=== PATIENT | female | born 1965 | race Caucasian/White ===

== ENCOUNTER → 2016-05-03 | Outpatient (CLI) | payer BC ==
[~2016-05-03] MED LIST: ALVESCO; BUPR-83 PO; CMD5 PO; DIGO0.2518 PO; LEVAAER2; METO100T14 PO; RANI300T2 PO; SNG10 PO
--- NOTE | 2016-05-03 07:45 | DIAGNOSTIC IMAGING REPORT ---
ULTRASOUND RIGHT UPPER QUADRANT ABDOMEN CLINICAL HISTORY: Right upper quadrant abdominal pain. COMPARISON STUDY: Abdominal CT dated 09/14/2007. TECHNIQUE: Real-time, grayscale, and color flow sonography of the right upper quadrant of the abdomen was performed. Images are reviewed in the transverse and longitudinal planes. FINDINGS: Liver: The liver is enlarged measuring over 26 cm in length and demonstrates heterogeneously increased echotexture consistent with severe hepatic steatosis. Note that this degrades acoustic penetration of the liver. Foci of fatty sparing are seen adjacent to gallbladder fossa. There is no intrahepatic biliary ductal dilatation. The main portal vein is patent. Gallbladder: The gallbladder is normal in appearance. No gallstones are identified. There is no gallbladder wall thickening or pericholecystic fluid. A sonographic Kincaid's sign is reportedly absent. The common bile duct measures up to 0.5 cm in diameter. Pancreas: Visualized portions of the pancreatic head and body are normal in appearance. Right kidney: Survey images of the right kidney demonstrate normal size and echotexture. There is no hydronephrosis. Ascites: None. IMPRESSION: 1. No acute sonographic abnormality is identified in the right upper quadrant. No gallstones are seen. 2. Hepatomegaly and severe hepatic steatosis. Electronically signed by: Jasiel Cooley M.D. 05/03/2016 7:43 AM Dictated Date/Time: 05/03/2016 7:42 AM
[2016-05-03 10:17] LABS: BLOOD UREA NITROGEN 13 mg/dl (7-18); CREATININE 0.79 mg/dl (0.60-1.20); GLUCOSE 156 mg/dl (70-99)
[2016-05-03 10:18] LABS: ALT/SGPT 172 U/L (12-78); BUN/CREATININE RATIO 16.7 (10-20); CALCIUM 9.9 mg/dl (8.5-10.1); CARBON DIOXIDE 27 mmol/L (21-32); CHLORIDE 102 mmol/L (98-107); POTASSIUM 4.2 mmol/L (3.5-5.1); SODIUM 139 mmol/L (136-145)
[2016-05-03 10:20] LABS: ALKALINE PHOSPHATASE 81 U/L (45-117); AST/SGOT 107 U/L (15-37)
[2016-05-03 10:24] LABS: ESTIMATED AVERAGE GLUCOSE 166 mg/dl; HA1C FLAG Normal (Normal)
== END | disposition home or self-care (01) ==
LOC: C.ULTR 06:56
PROVIDERS: ATTEND Family Medicine
DX: R10.11 Right upper quadrant pain (principal); E11.9 Type 2 diabetes mellitus without complications; R16.0 Hepatomegaly, not elsewhere classified; K76.0 Fatty (change of) liver, not elsewhere classified

== ENCOUNTER → 2016-05-10 | Outpatient (CLI) | payer BC ==
[2016-05-10 14:48] LABS: ALT/SGPT 147 U/L (12-78); AST/SGOT 85 U/L (15-37); BLOOD UREA NITROGEN 12 mg/dl (7-18); BUN/CREATININE RATIO 17.2 (10-20); CALCIUM 9.8 mg/dl (8.5-10.1); CARBON DIOXIDE 29 mmol/L (21-32); CHLORIDE 102 mmol/L (98-107); CREATININE 0.69 mg/dl (0.60-1.20); GLUCOSE 105 mg/dl (70-99); POTASSIUM 4.2 mmol/L (3.5-5.1); SODIUM 138 mmol/L (136-145)
[2016-05-10 14:51] LABS: ALKALINE PHOSPHATASE 82 U/L (45-117)
== END | disposition home or self-care (01) ==
LOC: C.LAB1850 12:32
PROVIDERS: ATTEND Physician Assistant
DX: R74.8 Abnormal levels of other serum enzymes (principal)

== ENCOUNTER → 2016-05-27 | Outpatient (CLI) | payer BC ==
--- NOTE | 2016-05-27 16:24 | MAMMOGRAPHY REPORT ---
BILATERAL DIGITAL SCREENING MAMMOGRAM TOMOSYNTHESIS WITH CAD: 05/27/2016 CLINICAL HISTORY: Routine screening examination. TECHNIQUE: Breast tomosynthesis in addition to standard 2D mammography was performed. Current study was also evaluated with a Computer Aided Detection (CAD) system. COMPARISON: Comparison is made to exams dated: 05/24/2015 ultrasound, 05/24/2015 mammogram, 05/20/2014 ma mmogram, 05/19/2013 mammogram, 05/14/2012 mammogram, and 05/07/2011 mammogram - [facility] nter. BREAST COMPOSITION: The tissue of both breasts is almost entirely fatty. FINDINGS: There are scattered bilateral benign-appearing microcalcifications. No suspicious mass, a rchitectural distortion or cluster of suspicious microcalcifications is seen. IMPRESSION: ACR BI-RADS CATEGORY 1: NEGATIVE There is no mammographic evidence of malignancy. A 1 year screening mammogram is recommended. The p atient will receive written notification of the results. Approximately 10% of breast cancers are not detected with mammography. A negative mammographic repor t should not delay biopsy if a clinically suggestive mass is present. Elizabeth Alexandre M.D. ay/:05/27/2016 15:56:52 Restaurant Service Manager: Samara PEREZ(Eyad)(Mickey), [facility] letter sent: Normal 1/2 BI-RADS Code: ACR BI-RADS Category 1: Negative
== END | disposition home or self-care (01) ==
LOC: C.MAMM 08:38
PROVIDERS: ATTEND Obstetrics & Gynecology
DX: Z12.31 Encounter for screening mammogram for malignant neoplasm of breast (principal)

== ENCOUNTER → 2016-08-27 | Outpatient (CLI) | payer BC ==
[2016-08-27 10:03] LABS: ESTIMATED AVERAGE GLUCOSE 163 mg/dl; HA1C FLAG Normal (Normal)
[2016-08-27 10:17] LABS: BLOOD UREA NITROGEN 12 mg/dl (7-18); CREATININE 0.78 mg/dl (0.60-1.20); GLUCOSE 126 mg/dl (70-99)
[2016-08-27 10:18] LABS: BUN/CREATININE RATIO 14.9 (10-20); CALCIUM 11.4 mg/dl (8.5-10.1); CARBON DIOXIDE 31 mmol/L (21-32); CHLORIDE 102 mmol/L (98-107); POTASSIUM 4.3 mmol/L (3.5-5.1); SODIUM 139 mmol/L (136-145)
== END | disposition home or self-care (01) ==
LOC: C.LAB 07:38
PROVIDERS: ATTEND Family Medicine
DX: E11.9 Type 2 diabetes mellitus without complications (principal)

== ENCOUNTER → 2016-09-19 | Outpatient (CLI) | payer BC ==
[~2016-09-19] MED LIST changes: +SINCALIDE IV ONE; +SODIUM CHLORIDE 0.9% IV ONE
--- NOTE | 2016-09-19 10:57 | DIAGNOSTIC IMAGING REPORT ---
NUCLEAR HEPATOBILIARY SCAN WITH EJECTION FRACTION IMAGING CLINICAL HISTORY: Right upper quadrant abdominal pain. COMPARISON STUDY: Abdominal ultrasound dated 05/03/2016. TECHNIQUE: Dynamic images of the liver and anterior abdomen were obtained every 5 minutes for a total of 60 minutes following the IV administration of 5.3mCi of technetium 99m Choletec. 2.7 mcg of sincalide was then injected with additional images acquired every 5 minutes for 45 minutes to calculate the gallbladder ejection fraction. FINDINGS: The hepatobiliary scan shows prompt and homogeneous hepatic uptake. There is visualized activity within the intra and extrahepatic biliary tree at 15 minutes, and within the gallbladder at 15 minutes. There is normal biliary to bowel transit, with small bowel visualized by 35 minutes. On the sincalide imaging, the gallbladder ejection fraction was measured at 51%. IMPRESSION: 1. Unremarkable nuclear hepatobiliary scan. There is no scintigraphic evidence of cholecystitis. 2. The gallbladder ejection fraction measured 51% which is normal. Electronically signed by: Jasiel Cooley M.D. 09/19/2016 10:56 AM Dictated Date/Time: 09/19/2016 10:55 AM
== END | disposition home or self-care (01) ==
LOC: C.NUCL 07:32
PROVIDERS: ATTEND Family Medicine
DX: R10.11 Right upper quadrant pain (principal)

== ENCOUNTER → 2016-10-01 | Outpatient (CLI) | payer BC ==
[~2016-10-01] MED LIST changes: +OPTIRAY 320 IV PRN; -SINCALIDE IV ONE; -SODIUM CHLORIDE 0.9% IV ONE
--- NOTE | 2016-10-01 12:32 | DIAGNOSTIC IMAGING REPORT ---
ABDOMEN AND PELVIS CT WITH IV AND ORAL CONTRAST CT DOSE: 2095.96 mGy.cm HISTORY: Right upper quadrant abdominal pain. TECHNIQUE: Multiaxial CT images of the abdomen and pelvis were performed following the use of intravenous and oral contrast. A dose lowering technique was utilized adhering to the principles of ALARA. COMPARISON STUDY: Abdominal ultrasound 05/03/2016. Abdomen and pelvis CT 09/14/2007. FINDINGS: The lung bases are essentially clear. No fractures within the visualized osseous structures. Small fat-containing umbilical hernia. There is also a lower midline ventral/incisional hernia which contains a short segment of small bowel. This is similar to the prior study. The neck of the hernia measures 4 cm. The hernia sac measures 8.6 cm. Hepatic steatosis. The gallbladder, pancreas, spleen, and adrenal glands are unremarkable. No retroperitoneal lymphadenopathy. The kidneys enhance normally. Bilateral nephrolithiasis. Dominant stone within the lower pole the left kidney measures 8 mm. No ureteral stones. No hydronephrosis. Normal bladder, uterus, and right ovary. There is a 2.5 cm left ovarian cyst. A few colonic diverticula. No bowel wall thickening or obstruction. Normal appendix. IMPRESSION: 1. Bilateral nephrolithiasis. No ureteral stones. No hydronephrosis. 2. No bowel wall thickening or obstruction. 3. Normal appendix. 4. Hepatic steatosis. 5. Diverticulosis. 6. Small fat-containing umbilical hernia. 7. No change in the lower midline ventral/incisional hernia containing a short segment of small bowel. 8. A 2.5 cm left ovarian cyst. Electronically signed by: Oli Harvey M.D. 10/01/2016 12:31 PM Dictated Date/Time: 10/01/2016 12:23 PM
== END | disposition home or self-care (01) ==
LOC: C.CTS 09:34
PROVIDERS: ATTEND Family Medicine
DX: R10.11 Right upper quadrant pain (principal); N20.0 Calculus of kidney; K76.0 Fatty (change of) liver, not elsewhere classified; K57.92 Diverticulitis of intestine, part unspecified, without perforation or abscess without bleeding; K42.9 Umbilical hernia without obstruction or gangrene; N83.202 Unspecified ovarian cyst, left side

== ENCOUNTER → 2016-10-02 | Outpatient (CLI) | payer BC ==
[~2016-10-02] MED LIST changes: -OPTIRAY 320 IV PRN
[2016-10-02 09:41] LABS: BLOOD UREA NITROGEN 13 mg/dl (7-18); CREATININE 0.75 mg/dl (0.60-1.20)
== END | disposition home or self-care (01) ==
LOC: C.LAB 07:49
PROVIDERS: ATTEND Family Medicine
DX: E11.9 Type 2 diabetes mellitus without complications (principal); R10.11 Right upper quadrant pain

== ENCOUNTER → 2016-11-01 | Outpatient (CLI) | payer BC ==
[2016-11-01 17:10] LABS: BASO % 0.5 %; BASO ABS # 0.06 K/uL (0-0.2); COMPLETE YES; EOS % 9.5 %; HEMATOCRIT 42.9 % (37-47); IG% 0.5 %; LYMPH % 29.1 %; LYMPH ABS # 3.28 K/uL (1.2-3.4); MEAN CELL VOLUME 92.3 fL (80-100); MEAN CORPUSCULAR HEMOGLOBIN 29.7 pg (25-34); MEAN CORPUSCULAR HGB CONC 32.2 g/dl (32-36); MEAN PLATELET VOLUME 9.6 fL (7.4-10.4); MONO % 7.3 %; NEUT % 53.1 %; PLATELET COUNT 256 K/uL (130-400); RED BLOOD COUNT 4.65 M/uL (4.2-5.4); WHITE BLOOD COUNT 11.29 K/uL (4.8-10.8)
== END | disposition home or self-care (01) ==
LOC: C.LAB 16:02
PROVIDERS: ATTEND Family Medicine
DX: R51 Headache (principal)

== ENCOUNTER → 2016-11-29 | Outpatient (CLI) | payer BC ==
[2016-11-29 16:41] LABS: HEMATOCRIT 43.1 % (37-47); MEAN CELL VOLUME 91.7 fL (80-100); MEAN CORPUSCULAR HEMOGLOBIN 30.4 pg (25-34); MEAN CORPUSCULAR HGB CONC 33.2 g/dl (32-36); MEAN PLATELET VOLUME 9.7 fL (7.4-10.4); PLATELET COUNT 258 K/uL (130-400); WHITE BLOOD COUNT 11.24 K/uL (4.8-10.8)
[2016-11-29 16:57] LABS: POTASSIUM 4.2 mmol/L (3.5-5.1)
== END | disposition home or self-care (01) ==
LOC: C.LAB 15:09
PROVIDERS: ATTEND Plastic Surgery
DX: Z01.818 Encounter for other preprocedural examination (principal); K42.9 Umbilical hernia without obstruction or gangrene; E65 Localized adiposity

== ENCOUNTER → 2017-02-27 | Outpatient (CLI) | payer OTHER ==
--- NOTE | 2017-02-27 16:22 | DIAGNOSTIC IMAGING REPORT ---
CHEST 2 VIEWS ROUTINE CLINICAL HISTORY: Cough. COMPARISON STUDY: Chest radiograph April 15, 2011. FINDINGS: The lung volumes are normal. Lungs are clear. No pneumothorax or pleural effusion is noted. Cardiac size is normal. Mediastinal contours are normal. There is no evidence for pulmonary edema. Appearance of the chest is unchanged. IMPRESSION: No acute cardiopulmonary findings. Electronically signed by: Edson Alan M.D. 02/27/2017 4:21 PM Dictated Date/Time: 02/27/2017 4:20 PM
== END | disposition home or self-care (01) ==
LOC: C.RAD1850 16:05
PROVIDERS: ATTEND Physician Assistant Medical
DX: R05 Cough (principal)

== ENCOUNTER → 2017-09-15 | Outpatient (CLI) | payer OTHER ==
[2017-09-15 10:03] LABS: ALT/SGPT 92 U/L (12-78); BLOOD UREA NITROGEN 12 mg/dl (7-18); CALCIUM 9.8 mg/dl (8.5-10.1); CARBON DIOXIDE 27 mmol/L (21-32); CHOLESTEROL 183 mg/dl (0-200); GLUCOSE 160 mg/dl (70-99); LDL CHOLESTEROL CALCULATED 96 mg/dl; SODIUM 137 mmol/L (136-145)
[2017-09-15 10:27] LABS: HEMOGLOBIN A1C 8.4 % (4.5-5.6)
== END | disposition home or self-care (01) ==
LOC: C.LAB 07:36
PROVIDERS: ATTEND Family Medicine
DX: N60.92 Unspecified benign mammary dysplasia of left breast (principal); E11.9 Type 2 diabetes mellitus without complications; E78.00 Pure hypercholesterolemia, unspecified

== ENCOUNTER 2019-08-04 21:06 | Inpatient (IN) ==
--- NOTE | 2019-08-04 21:33 | Emergency Department Note ---
History of Present Illness General Chief complaint: Kidney Stone Stated complaint: KIDNEY STONE BLOCKING URINARY TRACK Time Seen by Provider: 08/04/19 21:24 History of Present Illness This is a 53-year-old female that presents to the emergency department via private vehicle with complaints of "kidney stone blocking urinary tract". The patient states that this past Friday she noted right-sided flank pain and was seen by the PCP on Friday. She states that she received IM Toradol and a short course of pain medication and was doing well. She was started on a prescription of ciprofloxacin and has been compliant. She then underwent a CT scan of the abdomen and pelvis this past Friday. This revealed: Mild left-sided hydroureteronephrosis secondary to an obstructing 4 x 3 x 5 mm calculus of the distal left ureter at the ureterovesicular junction. She states that Dr. Alexandre of urology was involved and she was recommended to come here for further evaluation and management with likely admission to the hospital with planned surgical correction tomorrow by Dr. Alexandre. Patient denies any pain at this time. Last fever was yesterday. Home Medications Home Medications Medication Instructions Recorded Confirmed Type ascorbic acid (vitamin C) 1,000 mg 2 gm PO BID tab 09/29/18 08/04/19 History tablet bupropion HCl 200 mg tablet,12 hr 200 mg PO BID #180 ea 09/29/18 08/04/19 Rx sustained-release fluticasone propionate 50 1 sprays INTNAS DAILY PRN 09/29/18 08/04/19 History mcg/actuation nasal spray,suspension hydrocodone-homatropine 5 mg-1.5 5 ml PO Q6H PRN 09/29/18 08/04/19 History mg/5 mL oral syrup lorazepam 0.5 mg tablet 0.5 mg PO DAILY 09/29/18 08/04/19 History ondansetron HCl 8 mg tablet 8 mg PO Q8H PRN #30 tab 09/29/18 08/04/19 Rx potassium 99 mg tablet 99 mg PO BID tab 09/29/18 08/04/19 History pyridoxine (vitamin B6) 100 mg 100 mg PO BID tab 09/29/18 08/04/19 History tablet sumatriptan succinate 100 mg tablet See Rx Instructions PO .COMPLEX 09/29/18 08/04/19 Rx #10 tab pen needle, diabetic 31 gauge x #100 ea 10/05/18 08/04/19 Rx 3/16" lancets #50 ea 11/09/18 08/04/19 Rx montelukast 10 mg tablet 10 mg PO QPM #30 tab 11/23/18 08/04/19 Rx spironolactone 100 mg tablet 50 mg PO BID #90 tab 12/11/18 08/04/19 Rx metoprolol tartrate 25 mg tablet See Rx Instructions PO BID PRN #90 01/04/19 08/04/19 Rx tab ciclesonide 160 mcg/actuation See Rx Instructions .ROUTE 01/06/19 08/04/19 Rx aerosol inhaler .COMPLEX #6.1 gm metoprolol tartrate 50 mg tablet See Rx Instructions .ROUTE 01/25/19 08/04/19 Rx .COMPLEX #270 tab clindamycin phosphate 1 % lotion 1 appln TOP DAILY #60 ml 02/22/19 08/04/19 Rx levalbuterol tartrate 45 2 puffs INH Q6H PRN #15 gm 05/03/19 08/04/19 Rx mcg/actuation aerosol inhaler furosemide 20 mg tablet 20 mg PO DAILY PRN #30 ea 05/25/19 08/04/19 Rx omeprazole 20 mg capsule,delayed 20 mg PO BID #60 cap 05/26/19 08/04/19 Rx release empagliflozin 10 mg tablet 10 mg PO DAILY #30 tab 06/01/19 08/04/19 Rx escitalopram oxalate 10 mg tablet 10 mg PO DAILY #30 tab 06/01/19 08/04/19 Rx blood sugar diagnostic ea 07/05/19 08/04/19 History insulin glargine 100 unit/mL (3 65 units SQ DAILY 30 Days #19.5 ml 07/16/19 08/04/19 Rx mL) subcutaneous pen ciprofloxacin HCl 500 mg tablet 500 mg PO Q12H #20 tab 07/30/19 08/04/19 Rx oxycodone 5 mg tablet See Rx Instructions PO Q6H PRN #30 07/30/19 08/04/19 Rx tab calcium carbonate [Calcium 500] 500 mg PO DAILY 08/04/19 08/04/19 History metformin 1,000 mg PO BID 08/04/19 08/04/19 History Allergies Allergy/AdvReac Type Severity Reaction Status Date / Time erythromycin base Allergy Mild RASH Verified 08/02/19 10:13 Penicillins Allergy Mild RASH Verified 08/02/19 10:13 prednisone Allergy Mild RASH Verified 08/02/19 10:13 doxycycline Allergy Unknown . Verified 08/02/19 10:13 pravastatin Allergy Unknown . Verified 08/02/19 10:13 simvastatin Allergy Unknown . Verified 08/02/19 10:13 Sulfa (Sulfonamide Allergy Unknown RASH Verified 08/02/19 10:13 Antibiotics) acetaminophen Allergy Unknown Verified 08/04/19 23:06 [From Tylenol-Codeine #3] codeine Allergy Unknown Verified 08/04/19 23:06 [From Tylenol-Codeine #3] hydrocodone AdvReac Mild SEVERE GASTON Verified 08/02/19 10:13 Past Med/Surg History Medical History Asthma (Chronic) Atrial flutter, paroxysmal Chronic sinusitis (Inactive) Depression Hypercholesterolemia Migraine headache (Chronic) Obesity (Inactive) Statin intolerance Type 2 diabetes mellitus with insulin therapy Surgical History S/P section S/P hernia surgery S/P tonsillectomy S/P wisdom tooth extraction Family History Aunt Colorectal cancer Grandfather (Maternal) Prostate cancer Mother , age 55 of Pseudomonas sepsis Lupus Raynaud's disease Father Hypertension Denies family history of Ovarian cancer Myocardial infarction Breast cancer Social History Preferred Language: Mongolian Communication Ability: Effective Visual Impairment: No Limitations Hearing Ability: Normal marital status: Current Living Situation: Spouse current occupational status: employed 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, 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 Feels Safe at Home: Yes Smoking Status: Never smoker Hx Alcohol Use: Yes Alcohol type: wine Alcohol Intake Frequency: Rarely Alcohol Intake Frequency Comment: Very rare use Hx Substance Use: No Childhood Exposure to Second-Hand Smoke: No Dental Care, Regularly: Yes Physical Activity Frequency: Does not Exercise Seatbelt Use: always Sunscreen Use: No Review of Systems A total of 10 systems reviewed and were otherwise negative Physical Exam Vital Signs Vital Signs - 24 hr 08/04/19 21:08 08/04/19 23:01 Temperature 37.0 C Temperature Source Oral Pulse Rate 84 Pulse Rate [Finger] 76 Respiratory Rate 18 18 Respiratory Effort / Characteristics Non-Labored Spontaneous Respiratory Depth Normal Blood Pressure 139/71 Blood Pressure [Right Arm] 129/63 Blood Pressure Mean 93 Blood Pressure Mean [Right Arm] 85 Pulse Oximetry 97 98 Oxygen Delivery Method Room Air Room Air Sepsis Recent Fever Within 48 Hours No Sepsis Action Taken by Nursing No Action Required VITAL SIGNS - Vital signs and nursing notes were reviewed. Stable and afebrile. GENERAL -53-year-old female appearing her stated age who is in no acute distress. Communicates well with provider and answers questions appropriately. SKIN - Without rashes. No meningeal or petechial rash. HEAD - NC/AT. EYES - PERRL with EOMI bilaterally. Sclera anicteric. EARS - No deformities of external structures noted on gross examination bilaterally. NOSE - Midline and without cyanosis. No epistaxis or purulent drainage noted. MOUTH/OROPHARYNX - Without perioral cyanosis. Buccal mucosa pink and moist and without leukoplakia. NECK - Neck with FROM. Supple to palpation. No lymphadenopathy noted. No nuchal rigidity. LUNGS - Chest wall symmetric without accessory muscle use, intercostals retractions, or central cyanosis. Normal vesicular breath sounds CTA B/L. No wheezes, rales, or rhonchi appreciated. CARDIAC - RRR with S1/S2. No murmur, rubs, or gallops appreciated. ABDOMEN - Abdominal contour normal without pulsations or visible masses. BS normoactive all four quadrants. No tenderness, palpable masses, he patosplenomegaly, or ascites noted. EXTREMITIES - No clubbing or peripheral cyanosis. No pretibial edema present. NEUROLOGIC - Cranial nerves II through XII grossly intact. Sensory intact to light touch throughout. Patellar reflexes +2/4. PSYCH - A&O, and cooperates fully with examiner. Pt is very pleasant and interacts well with examiner. Course Administered Medications Sodium Chloride (Nss) 1,000 mls @ 150 mls/hr IV .Q6H40M [facility] Stop: 09/04/19 01:39 Last Admin: 08/05/19 02:02 Dose: 150 mls/hr Documented by: [id number] Discontinued Medications Sodium Chloride (Nss 1000ml) 1,000 mls @ 999 mls/hr IV .Q1H1M [facility]NA Stop: 08/04/19 22:45 Last Infusion: 08/04/19 23:03 Dose: 0 mls/hr Documented by: [id number] Admin: 08/04/19 21:59 Dose: 999 mls/hr Documented by: [id number] Ceftriaxone Sodium (Rocephin) 2,000 mg in 70 mls @ 140 mls/hr IV NOW STA Stop: 08/04/19 23:55 Last Infusion: 08/05/19 00:11 Dose: 0 mls/hr Documented by: [id number] Admin: 08/04/19 23:38 Dose: 140 mls/hr Documented by: [id number] Sodium Chloride (Nss) 500 mls @ 150 mls/hr IV .Q3H20M GIANNA Stop: 09/04/19 01:31 Last Admin: 08/05/19 01:42 Dose: Not Given Documented by: [id number] Ceftriaxone Sodium 1,000 mg/ (Dextrose) 50 mls @ 100 mls/hr IV Q24H GIANNA; Protocol Stop: 08/15/19 01:31 Last Admin: 08/05/19 01:40 Dose: Not Given Documented by: [id number] Tamsulosin HCl (Flomax) 0.4 mg PO NOW ONE Stop: 08/05/19 00:27 Last Admin: 08/05/19 00:40 Dose: 0.4 mg Documented by: [id number] Medical Decision Making Laboratory Data Result diagrams: 08/04/19 21:53 08/04/19 21:53 Lab Results 08/04/19 08/04/19 08/04/19 Range/Units 21:53 21:53 23:08 WBC 13.00 H (4.8-10.8) K/uL RBC 4.79 (4.2-5.4) M/uL Hgb 14.6 (12.0-16.0) g/dL Hct 43.2 (37-47) % MCV 90.2 (80-100) fL MCH 30.5 (25-34) pg MCHC 33.8 (32-36) g/dL RDW Std Deviation 48.3 H (36.4-46.3) fL RDW Coeff of [place]idan 14.7 H (11.5-14.5) % Plt Count 305 (130-400) K/uL MPV 9.3 (7.4-10.4) fL Immature Gran % (Auto) 2.2 % Neut % (Auto) 54.7 % Lymph % (Auto) 27.3 % Rush % (Auto) 10.9 % Eos % (Auto) 4.4 % Baso % (Auto) 0.5 % Immature Gran # (Auto) 0.28 H (0.00-0.02) K/uL Neut # (Auto) 7.11 H (1.4-6.5) K/uL Lymph # (Auto) 3.55 H (1.2-3.4) K/uL Rush # (Auto) 1.42 H (0.11-0.59) K/uL Eos # (Auto) 0.57 H (0-0.5) K/uL Baso # (Auto) 0.07 (0-0.2) K/uL Sodium 138 (136-145) mmol/L Potassium 4.0 (3.5-5.1) mmol/L Chloride 103 (98-107) mmol/L Carbon Dioxide 26 (21-32) mmol/L Anion Gap 9.0 (3-11) BUN 14 (7-18) mg/dl Creatinine 1.23 H (0.6-1.2) mg/dl Est Cr Clr Drug Dosing 72.3 ml/min Est GFR ( Amer) 58.4 Est GFR (Non-Af Amer) 50.4 BUN/Creatinine Ratio 11.1 (10-20) Glucose 113 H (70-99) mg/dl Calcium 10.3 H (8.5-10.1) mg/dl Magnesium 2.1 (1.8-2.4) mg/dl Total Bilirubin 0.3 (0.2-1) mg/dl AST 18 (15-37) U/L ALT 42 (12-78) U/L Alkaline Phosphatase 83 (45-117) U/L Total Protein 8.6 H (6.4-8.2) gm/dl Albumin 3.6 (3.4-5.0) gm/dl Globulin 5.0 H (2.5-4.0) gm/dl Albumin/Globulin Ratio 0.7 L (0.9-2) Urine Color Urine Appearance (Clear) Urine pH (4.5-7.5) Ur Specific [place] (1.000-1.030) Urine Protein (Negative) Urine Glucose (UA) (Negative) Urine Ketones (Negative) Urine Blood (Negative) Urine Nitrite (Negative) Urine Bilirubin (Negative) Urine Urobilinogen (Negative) Ur Leukocyte Esterase (Negative) Urine WBC (Auto) (0-5) /hpf Urine RBC (Auto) (0-4) /hpf U Hyaline Cast (Auto) (0-5) /lpf U Epithel Cells (Auto) (0-5) /lpf Urine Bacteria (Auto) (Negative) POC Ur Test NEG (NEG) 08/04/19 Range/Units 23:08 WBC (4.8-10.8) K/uL RBC (4.2-5.4) M/uL Hgb (12.0-16.0) g/dL Hct (37-47) % MCV (80-100) fL MCH (25-34) pg MCHC (32-36) g/dL RDW Std Deviation (36.4-46.3) fL RDW Coeff of [place]idan (11.5-14.5) % Plt Count (130-400) K/uL MPV (7.4-10.4) fL Immature Gran % (Auto) % Neut % (Auto) % Lymph % (Auto) % Rush % (Auto) % Eos % (Auto) % Baso % (Auto) % Immature Gran # (Auto) (0.00-0.02) K/uL Neut # (Auto) (1.4-6.5) K/uL Lymph # (Auto) (1.2-3.4) K/uL Rush # (Auto) (0.11-0.59) K/uL Eos # (Auto) (0-0.5) K/uL Baso # (Auto) (0-0.2) K/uL Sodium (136-145) mmol/L Potassium (3.5-5.1) mmol/L Chloride (98-107) mmol/L Carbon Dioxide (21-32) mmol/L Anion Gap (3-11) BUN (7-18) mg/dl Creatinine (0.6-1.2) mg/dl Est Cr Clr Drug Dosing ml/min Est GFR ( Amer) Est GFR (Non-Af Amer) BUN/Creatinine Ratio (10-20) Glucose (70-99) mg/dl Calcium (8.5-10.1) mg/dl Magnesium (1.8-2.4) mg/dl Total Bilirubin (0.2-1) mg/dl AST (15-37) U/L ALT (12-78) U/L Alkaline Phosphatase (45-117) U/L Total Protein (6.4-8.2) gm/dl Albumin (3.4-5.0) gm/dl Globulin (2.5-4.0) gm/dl Albumin/Globulin Ratio (0.9-2) Urine Color Yellow Urine Appearance Cloudy A (Clear) Urine pH 6.0 (4.5-7.5) Ur Specific [place] 1.022 (1.000-1.030) Urine Protein Negative (Negative) Urine Glucose (UA) 2+ H (Negative) Urine Ketones Negative (Negative) Urine Blood 3+ H (Negative) Urine Nitrite Negative (Negative) Urine Bilirubin Negative (Negative) Urine Urobilinogen Negative (Negative) Ur Leukocyte Esterase 2+ H (Negative) Urine WBC (Auto) >30 H (0-5) /hpf Urine RBC (Auto) >30 H (0-4) /hpf U Hyaline Cast (Auto) 1-5 (0-5) /lpf U Epithel Cells (Auto) 10-20 H (0-5) /lpf Urine Bacteria (Auto) Negative (Negative) POC Ur Test (NEG) Imaging Data My Impression: KUB does not reveal any clear evidence of stone. Radiologist's Impression: CT ABDOMEN & PELVIS Without Contrast: Compared to 08/02/19. Persistent stone at the left UVJ and mild left hydronephrosis/hydroureter. Additional findings similar to recent prior Radiologist: Kendra Winkler M.D. Study ready at 23:04 and initial results transmitted at 23:12 MDM Narrative Patient was seen and evaluated as above in room C9. Review was performed of nursing notes and vital signs. I did review pertinent previous visits and patient history. After obtaining a thorough history and physical examination the above work up was performed. She presents to us today with a known obstructing stone but now without fever and now without pain. She also has a known UTI and I reviewed most recent culture of the urine which revealed pansensitive E. coli. She is nontoxic on examination. Vital signs are stable. She is afebrile. IV access was established. Labs were drawn. I discussed the case with Dr. Alexandre of urology as there was a previous plan for surgical intervention tomorrow. Given her pain-free and afebrile status a KUB was recommended to assess for persistent stone (and if unclear then a CT was felt reasonable) and per my interpretation it is unclear if the stone is still present. I also reviewed this with the attending physician. It is felt that a CT scan would be warranted and this was obtained. Results as above. There is persistence of the stone. She was covered with 2 g of IV Rocephin, and will be admitted to the [facility] for further evaluation and management with planned surgical correction by Dr. Alexandre tomorrow. Mild leukocytosis of 13 without anemia. No emergent metabolic disturbance. Creatinine 1.23. Urinalysis is concerning for potential infection. UPT negative. I discussed the case with the hospitalist. Please refer to further documentation regarding his stay. GCS: 15 In the evaluation and treatment of this patient the following differential diagnoses were entertained: Fracture, dislocation, subluxation, contusion, UTI, obstruction, among others. Impression & Plan Complicated UTI (urinary tract infection), Left ureteral calculus, Hydroureteronephrosis Discharge Plan Visit Data *Final* Discharge Date/Time: 08/05/19 00:52 Chief Complaint: Kidney Stone Stated Complaint: KIDNEY STONE BLOCKING URINARY TRACK ED Provider: Jasiel Gregory ED Midlevel Provider: Nuno Humphries Discharge Problem: Complicated UTI (urinary tract infection), Left ureteral calculus, Hydroureteronephrosis Patient Disposition: Admitted As Inpatient Condition: Good Discharge Instructions Interventions: ED Discharge Assessment Last Done: 08/05/19 00:52
[2019-08-04] MEDS ORDERED: SODIUM CHLORIDE 0.9% 1000ML 1,000 ML IV SCH (21:45)
[2019-08-04 22:05] LABS: Basophils # (auto) 0.07 K/uL (0-0.2); Basophils % (auto) 0.5 %; Eosinophils # (auto) 0.57 K/uL (0-0.5); Eosinophils % (auto) 4.4 %; Hematocrit (blood only) 43.2 % (37-47); Hemoglobin 14.6 g/dL (12.0-16.0); Immature Granulocytes # (auto) 0.28 K/uL (0.00-0.02); Immature Granulocytes % (auto) 2.2 %; Lymphocytes # (auto) 3.55 K/uL (1.2-3.4); Lymphocytes % (auto) 27.3 %; Mean Corpuscular Hemoglobin 30.5 pg (25-34); Mean Corpuscular Hgb Conc 33.8 g/dL (32-36); Mean Corpuscular Volume 90.2 fL (80-100); Mean Platelet Volume 9.3 fL (7.4-10.4); Monocytes # (auto) 1.42 K/uL (0.11-0.59); Monocytes % (auto) 10.9 %; Neutrophils # (auto) 7.11 K/uL (1.4-6.5); Neutrophils % (auto) 54.7 %; Platelet Count 305 K/uL (130-400); RDW Coefficient of Variation 14.7 % (11.5-14.5); RDW Standard Deviation 48.3 fL (36.4-46.3); Red Blood Count 4.79 M/uL (4.2-5.4)
[2019-08-04 22:23] LABS: Albumin Level 3.6 gm/dl (3.4-5.0); BUN Creatinine Ratio 11.1 (10-20); Calcium 10.3 mg/dl (8.5-10.1); Creatinine Clr Calc Pharmacy 72.3 ml/min; Est GFR (African American) 58.4; Est GFR (Non-African American) 50.4; Magnesium 2.1 mg/dl (1.8-2.4)
[2019-08-04 22:26] LABS: Albumin Globulin Ratio 0.7 (0.9-2); Bilirubin,Total 0.3 mg/dl (0.2-1); Total Protein 8.6 gm/dl (6.4-8.2)
[2019-08-04 23:17] LABS: Appearance Urine Cloudy (Clear); Bacteria Urine Automated Negative (Negative); Bilirubin Urine Negative (Negative); Blood Urine 3+ (Negative); Color Urine Yellow; Glucose Urine UA 2+ (Negative); Ketones Urine Negative (Negative); Leukocyte Esterase Urine 2+ (Negative); Nitrite Urine Negative (Negative); Protein Urine Negative (Negative); RBC Urine Automated >30 /hpf (0-4); Specific Gravity Urine 1.022 (1.000-1.030); Urobilinogen Urine Negative (Negative); WBC Urine Automated >30 /hpf (0-5)
[2019-08-04] MEDS ORDERED: cefTRIAXone SODIUM 2,000 MG/70 ML BAG IV STA (23:26)
[2019-08-05] MEDS ORDERED: TAMSULOSIN HCL 0.4 MG CAP PO ONE (00:26)
--- NOTE | 2019-08-05 00:43 | History & Physical Report ---
Date of Service August 05, 2019 Assessment & Plan (1) Kidney stones: 53-year-old female past medical history nephrolithiasis, DM 2, paroxysmal A. flutter, asthma, migraine a for complicated UTI with left-sided nephroureteronephrosis secondary to obstructive calculus. Complicated UTI secondary to obstructive calculus: For OR tomorrow with Dr. Alexandre for calculus removal. Tamsulosin 0.4 mg p.o. now, n.p.o. following for surgery. NSS@150 cc/hr. Patient has a history of allergy to codeine and hydromorphone, without pain at this time. Tylenol 1000 mg IV every 8 hours PRN pain. Continue ceftriaxone 1 g IV q24h for pansensitive E. coli UTI. CBC daily. MATEO: Likely post renal secondary to obstructive calculus. For surgery as above today. Fluids as above. BMP daily. Paroxysmal a flutter: Continue metoprolol tartrate once diet is advanced. DM 2: Hold home Lantus, Jardiance, metformin. Sliding scale insulin. Asthma: Arnuity Ellipta 2 puffs twice daily. Hold montelukast until no longer n.p.o. Depression: Hold home meds, resume after surgery. CODE STATUS: FULL CODE FEN GI: N.p.o. now for surgery DVT prophylaxis: SCDs, can consider medical prophylaxis after surgery Dispo: med/surg, for surgery this a.m. by Dr. Alexandre (2) Complicated UTI (urinary tract infection): (3) Type 2 diabetes mellitus with insulin therapy: (4) Asthma: (5) Atrial flutter, paroxysmal: (6) Depression: (7) Migraine headache: History of Present Illness Chief Complaint: UTI, nephrolithiasis Primary Care Provider: Ankita Tony MD 53-year-old female past medical history nephrolithiasis, DM 2, paroxysmal A. flutter, asthma, migraine headaches presents to the emergency room via suggestion from Dr. Alexandre with Urology for obstructive calculus and UTI. In the ED was found to have a leukocytosis to 13.00 with left shift, MATEO with creatinine 1.23, UA with blood, LE, greater than 30 WBCs. KUB without evidence of obstructive calculus, CTAP with persistent 4 x 3 x 5 mm stone at the left UVJ with mild left-sided hydroureteronephrosis. Dr. Alexandre will take to the OR tomorrow for removal of calculus. Patient was given 1 L NSS bolus, IV cef triaxone 2 g. Hospitalist service was consulted for admission. On my interview patient reports that she has had fevers off and on with a T-max of 102 since last Friday. Was seen by her primary care provider who performed a UA and urine culture positive for pansensitive E. coli, received a "pain shot" in the office and was given a prescription for ciprofloxacin 500 mg p.o. twice daily. Patient was on antibiotics for several days, still with intermittent fevers. Given her history of nephrolithiasis had a CTAP which showed a stone in the left UVJ. A consult was placed to urology. This afternoon was called by the urology office and advised to come to the hospital for admission for surgery tomorrow to remove the calculus. Over the last week the patient also endorses intermittent nausea, but no vomiting, back pain, dysuria, gross hematuria, urinary urgency or frequency. She also denies chest pain, shortness of breath, headache, dizziness, abdominal pain, constipation, diarrhea. Has a family history of nephrolithiasis on her father's side. The patient reports that she has been "drinking a lot of water lately" in an effort to minimize her risk of future kidney stones. Allergies Allergy/AdvReac Type Severity Reaction Status Date / Time erythromycin base Allergy Mild RASH Verified 08/05/19 04:09 Penicillins Allergy Mild RASH Verified 08/02/19 10:13 prednisone Allergy Mild RASH Verified 08/02/19 10:13 doxycycline Allergy Unknown . Verified 08/02/19 10:13 pravastatin Allergy Unknown . Verified 08/02/19 10:13 simvastatin Allergy Unknown . Verified 08/02/19 10:13 Sulfa (Sulfonamide Allergy Unknown RASH Verified 08/02/19 10:13 Antibiotics) acetaminophen Allergy Unknown Verified 08/04/19 23:06 [From Tylenol-Codeine #3] codeine Allergy Unknown Verified 08/04/19 23:06 [From Tylenol-Codeine #3] latex Allergy Rash Verified 08/05/19 04:09 hydrocodone AdvReac Mild SEVERE GASTON Verified 08/02/19 10:13 Home Medications Home Medications Medication Instructions Recorded Confirmed Type ascorbic acid (vitamin C) 1,000 mg 2 gm PO BID tab 08/13/19 06/17/20 History tablet bupropion HCl 200 mg tablet,12 hr 200 mg PO BID #180 ea 09/29/18 08/04/19 Rx sustained-release fluticasone propionate 50 1 sprays INTNAS DAILY PRN 09/29/18 08/04/19 History mcg/actuation nasal spray,suspension hydrocodone-homatropine 5 mg-1.5 5 ml PO Q6H PRN 09/29/18 08/04/19 History mg/5 mL oral syrup lorazepam 0.5 mg tablet 0.5 mg PO DAILY 09/29/18 08/04/19 History ondansetron HCl 8 mg tablet 8 mg PO Q8H PRN #30 tab 09/29/18 08/04/19 Rx potassium 99 mg tablet 99 mg PO BID tab 09/29/18 08/04/19 History pyridoxine (vitamin B6) 100 mg 100 mg PO BID tab 09/29/18 08/04/19 History tablet sumatriptan succinate 100 mg tablet See Rx Instructions PO .COMPLEX 09/29/18 08/04/19 Rx #10 tab pen needle, diabetic 31 gauge x #100 ea 10/05/18 08/04/19 Rx 3/16" lancets #50 ea 11/09/18 08/04/19 Rx montelukast 10 mg tablet 10 mg PO QPM #30 tab 11/23/18 08/04/19 Rx spironolactone 100 mg tablet 50 mg PO BID #90 tab 12/11/18 08/04/19 Rx metoprolol tartrate 25 mg tablet See Rx Instructions PO BID PRN #90 01/04/19 08/04/19 Rx tab ciclesonide 160 mcg/actuation See Rx Instructions .ROUTE 01/06/19 08/04/19 Rx aerosol inhaler .COMPLEX #6.1 gm metoprolol tartrate 50 mg tablet See Rx Instructions .ROUTE 01/25/19 08/04/19 Rx .COMPLEX #270 tab clindamycin phosphate 1 % lotion 1 appln TOP DAILY #60 ml 02/22/19 08/04/19 Rx levalbuterol tartrate 45 2 puffs INH Q6H PRN #15 gm 05/03/19 08/04/19 Rx mcg/actuation aerosol inhaler furosemide 20 mg tablet 20 mg PO DAILY PRN #30 ea 05/25/19 08/04/19 Rx omeprazole 20 mg capsule,delayed 20 mg PO BID #60 cap 05/26/19 08/04/19 Rx release empagliflozin 10 mg tablet 10 mg PO DAILY #30 tab 06/01/19 08/04/19 Rx escitalopram oxalate 10 mg tablet 10 mg PO DAILY #30 tab 06/01/19 08/04/19 Rx blood sugar diagnostic ea 07/05/19 08/04/19 History insulin glargine 100 unit/mL (3 65 units SQ DAILY 30 Days #19.5 ml 07/16/19 08/04/19 Rx mL) subcutaneous pen ciprofloxacin HCl 500 mg tablet 500 mg PO Q12H #20 tab 07/30/19 08/04/19 Rx oxycodone 5 mg tablet See Rx Instructions PO Q6H PRN #30 07/30/19 08/04/19 Rx tab calcium carbonate [Calcium 500] 500 mg PO DAILY 08/04/19 08/04/19 History metformin 1,000 mg PO BID 08/04/19 08/04/19 History Past Med/Surg History Medical History Asthma (Chronic) Atrial flutter, paroxysmal Chronic sinusitis (Inactive) Depression Hypercholesterolemia Migraine headache (Chronic) Obesity (Inactive) Statin intolerance Type 2 diabetes mellitus with insulin therapy Surgical History S/P section S/P hernia surgery S/P tonsillectomy S/P wisdom tooth extraction Family History Aunt Colorectal cancer Grandfather (Maternal) Prostate cancer Mother , age 55 of Pseudomonas sepsis Lupus Raynaud's disease Father Hypertension Denies family history of Ovarian cancer Myocardial infarction Breast cancer Social History Preferred Language: Lithuanian Communication Ability: Effective Visual Impairment: No Limitations Hearing Ability: Normal Driver Service Technician Required: No Beliefs That Will Affect Care: None marital status: Current Living Situation: Spouse and Family current occupational status: employed 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, 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 Other Information That Helps Us Care for You: No Feels Safe at Home: Yes Safety Concerns: Feels Safe At This Time Smoking Status: Never smoker Second Hand Exposure: No ; Hx Alcohol Use: Yes Alcohol type: wine and hard liquor Alcohol Intake Frequency: Rarely Alcohol Intake Frequency Comment: Very rare use Hx Substance Use: No Childhood Exposure to Second-Hand Smoke: No Dental Care, Regularly: Yes Physical Activity Frequency: Does not Exercise Seatbelt Use: always Sunscreen Use: No Review of Systems Review of Systems: All systems reviewed & are unremarkable except as noted in HPI & below Constitutional: + fever and + malaise; no chills Respiratory: no cough, no dyspnea and no wheezing Cardiovascular: no chest pain, no palpitations and no edema Gastrointestinal: + nausea; no abdominal pain, no vomiting, no constipation and no diarrhea/loose stools Genitourinary: no dysuria, no urinary frequency, no urinary urgency and no hematuria Physical Exam Constitutional: WD/WN, vitals as above Eyes: PERRL, conjunctivae normal, anicteric sclerae ENMT: external ear and nose normal, oropharynx normal Neck: normal visual inspection Respiratory: normal respiratory effort, lungs clear to auscultation Cardiovascular: RRR, no murmur, no edema Gastrointestinal (Abdomen): normal bowel sounds, soft, nontender, no hepatosplenomegaly Musculoskeletal: no cyanosis or clubbing, extremities motor strength 5/5 Skin: no rashes, warm and dry Neurologic: AAOx3, normal speech. PERRLA, EOMI, no nystagmus. Normal visual acuity bilaterally. Bilateral UE, LE, and face without sensory or motor deficits. DTRs normal. II- XII intact bilaterally. No tremor. Psychiatric: A+Ox3, euthymic affect Results & Data Results & Data ([facility]) Vital Signs (Past 12 Hours) Vital Signs Temp Pulse Pulse Resp BP BP Pulse Ox 08/04/19 23:01 76 18 129/63 98 08/04/19 21:08 37.0 C 84 18 139/71 97 Supervising Physician Co-Signing Physician Notes Attending addendum: I have physically seen this patient, have supervised the medical residents activities, and agree with the H&P unless as otherwise noted. Assessment and Plan: Left UVJ obstructing ureteral calculus/mild left hydroureteronephrosis- Follow urine culture and sensitivity. NPO NSS@150 mils per hour Ceftriaxone 1 g IV daily Pansensitive E. coli Tamsulosin 0.4 mg p.o. daily Consult urology Dr. Alexandre. Mild acute kidney injury- Creatinine 1.23 upon admission Repeat BMP after adequate hydration with IV fluids. Paroxysmal atrial flutter- Continue metoprolol tartrate with hold parameters. Diabetes mellitus Hold Lantus, Jardiance and metformin. Placed on Accu-Cheks before meals and at bedtime with NovoLog coverage per scale Remaining orders and notations as noted. Resident Activity Tracking Resident Involvement: Resident Care Provided Care Provided: Adult Hospital Medicine
[2019-08-05] MEDS ORDERED: LEVALBUTEROL TARTRATE 15 GM HFA.AER.AD INH PRN (01:32)
[2019-08-05] MEDS ORDERED: ONDANSETRON INJ 2 MG/ML 2 ML VIAL IV PRN ×2 (01:32→12:01)
[2019-08-05] MEDS ORDERED: FLUTICASONE PROPIONATE NA SPR 16 GM BTL PRN (01:32)
[2019-08-05] MEDS ORDERED: cefTRIAXone SODIUM 1,000 MG in DEXTROSE 5% 50 ML IV SCH ×2 (01:32→13:32)
[2019-08-05] MEDS ORDERED: CARBOHYDRATES FOR HYPOGLYCEMIA PO PRN (01:32)
[2019-08-05] MEDS ORDERED: GLUCOSE 40% GEL 15 GM TUBE PO PRN (01:32)
[2019-08-05] MEDS ORDERED: ACETAMINOPHEN 1000 MG/100 ML IV IV PRN (01:32)
[2019-08-05] MEDS ORDERED: DEXTROSE 50% 50 ML SYRINGE IV PRN (01:32)
[2019-08-05] MEDS ORDERED: GLUCOSE 10 TABS/TUBE PO PRN (01:32)
[2019-08-05] MEDS ORDERED: GLUCAGON FOR INJ 1 MG VIAL SQ PRN (01:32)
[2019-08-05] MEDS ORDERED: SODIUM CHLORIDE 0.9% 500 ML IV SCH (01:32)
[2019-08-05] MEDS: SODIUM CHLORIDE 0.9% 1,000 ML IV SCH ×3 (02:02→15:37)
[2019-08-05] MEDS: INSULIN ASPART 100 UNITS/ML 3 ML PEN SC SCH ×4 (05:34→20:53)
--- NOTE | 2019-08-05 07:22 | XRay Report ---
KUB CLINICAL HISTORY: Left-sided nephrolithiasis. FINDINGS: 3 AP supine abdominal radiographs are correlated with abdominal CT dated 08/02/2019. The exa mination is degraded by large body habitus. There is no bowel obstruction. There are at least 4 calcu li projecting over the left kidney which measure up to 9 mm. No right renal calculi are clearly ident ified. The obstructing calculus at the left vesicoureteral junction seen on 08/02/2019 is not clearly identified by x-ray. The bony structures appear intact noting moderate lumbosacral spondylosis. IMPRESSION: 1. Left-sided nephrolithiasis. 2. The obstructing calculus in the left vesicoureteral junction seen by CT on 08/02/2019 is not visual ized on today's x-ray. Electronically signed by: Jasiel Cooley M.D. 08/05/2019 7:21 AM
--- NOTE | 2019-08-05 08:08 | CT Scan Report ---
CT SCAN OF THE ABDOMEN AND PELVIS WITHOUT IV CONTRAST CLINICAL HISTORY: Left ureteral stone. COMPARISON STUDY: Abdominal CT dated 08/02/2019. TECHNIQUE: CT scan of the abdomen and pelvis is performed from the lung bases to the proximal femora. Images are reviewed in the axial, sagittal, and coronal planes. IV contrast was not administered for this examination. A dose lowering technique was utilized adhering to the principles of ALARA. CT DOSE: 1996.83 mGy.cm FINDINGS: Lung bases: The heart is normal in size and without pericardial effusion. The lung bases are clear. Liver: The unenhanced liver is enlarged, measuring 21.5 cm in length. The liver demonstrates diffusel y diminished attenuation consistent with mild hepatic steatosis. Mild sparing is seen adjacent to gal lbladder fossa. There is no intrahepatic biliary ductal dilatation. Gallbladder: Contracted. Spleen: Normal in size and attenuation. Pancreas: Unremarkable. Adrenal glands: Unremarkable. Kidneys: The unenhanced kidneys are normal in size. There is unchanged appearance of a 5 mm obstructi ng calculus at the left vesicoureteral junction seen on image #374. This causes mild to moderate left hydroureteronephrosis. There are at least 6 additional nonobstructing left or a calculi which measur e up to 10 mm. There are least 5 nonobstructing right renal calculi which measure up to 6 mm. There i s no right-sided hydronephrosis. There is no evidence of contour deforming renal mass lesion. Abdominal vasculature: The abdominal aorta is normal in course and caliber. Bowel: There is no bowel obstruction. Fecal retention is seen throughout the colon. There is mild col onic diverticulosis without CT evidence of acute diverticulitis. The appendix is well-visualized and normal. Peritoneum: There is no intraperitoneal free air or abdominal ascites. Lymphadenopathy: None. Pelvic viscera: The bladder, uterus, and adnexa are normal as visualized. Small ovarian follicles are observed. There is evidence of previous ventral hernia repair in the pelvis. A recurrent/residual fa t-containing ventral hernia is noted in the pelvic midline. Skeletal structures: There is mild to moderate lumbosacral spondylosis. No lytic or blastic lesions a re seen. IMPRESSION: 1. There is unchanged appearance of a 5 mm obstructing calculus at the left vesicoureteral junction a s compared to 08/02/2019. This causes mild to moderate left hydroureteronephrosis. 2. Additional bilateral nonobstructing renal calculi as above. 3. Hepatomegaly and mild steatosis. 4. Additional findings as above. ACT 112: Negative or not required by law. Electronically signed by: Jasiel Cooley M.D. 08/05/2019 8:06 AM
--- NOTE | 2019-08-05 08:23 | Urology Consultation ---
Date of Consultation August 05, 2019 Assessment & Plan (1) Left ureteral calculus: (2) Complicated UTI (urinary tract infection): Obstructing left ureteral calculus and UTI Discussed options I believe we should schedule her for surgery today for cystoscopy, left ureteral stent placementon imaging it appears that her stone is extremely close to the bladder and if possible I would like to remove the stone at that time We will schedule her with the possibility of ureteroscopy/laser lithotripsy in addition to simple stent placement I do not believe it would be safe to perform renoscopy given the current infections I will not attempt to treat the stones within the kidney Rapid covid testing to be ordered History of Present Illness Attending Physician: Rolando Lackey History of Present Illness 53-year-old female who is been experiencing fevers and flank pain at home for the past several days She ultimately was scheduled for a CT through her PCP which revealed a distal left ureteral calculus with hydronephrosis Unfortunately, she has been clinically stable She has been on antibiotics and her fevers have been relatively well controlled for the past 48 hours She had to return to the emergency room last night at our request Repeat imaging shows persistence of the distal left ureteral calculus Overall she feels relatively well and was hemodynamically stable throughout the night Review of imaging reveals not only a distal left ureteral calculus but numerous left renal calculi Allergies Allergy/AdvReac Type Severity Reaction Status Date / Time erythromycin base Allergy Mild RASH Verified 08/05/19 04:09 Penicillins Allergy Mild RASH Verified 08/02/19 10:13 prednisone Allergy Mild RASH Verified 08/02/19 10:13 doxycycline Allergy Unknown . Verified 08/02/19 10:13 pravastatin Allergy Unknown . Verified 08/02/19 10:13 simvastatin Allergy Unknown . Verified 08/02/19 10:13 Sulfa (Sulfonamide Allergy Unknown RASH Verified 08/02/19 10:13 Antibiotics) acetaminophen Allergy Unknown Verified 08/04/19 23:06 [From Tylenol-Codeine #3] codeine Allergy Unknown Verified 08/04/19 23:06 [From Tylenol-Codeine #3] latex Allergy Rash Verified 08/05/19 04:09 hydrocodone AdvReac Mild SEVERE GASTON Verified 08/02/19 10:13 Home Medications Home Medications Medication Instructions Recorded Confirmed Type ascorbic acid (vitamin C) 1,000 mg 2 gm PO BID tab 08/13/19 06/17/20 History tablet bupropion HCl 200 mg tablet,12 hr 200 mg PO BID #180 ea 09/29/18 08/04/19 Rx sustained-release fluticasone propionate 50 1 sprays INTNAS DAILY PRN 09/29/18 08/04/19 History mcg/actuation nasal spray,suspension hydrocodone-homatropine 5 mg-1.5 5 ml PO Q6H PRN 09/29/18 08/04/19 History mg/5 mL oral syrup lorazepam 0.5 mg tablet 0.5 mg PO DAILY 09/29/18 08/04/19 History ondansetron HCl 8 mg tablet 8 mg PO Q8H PRN #30 tab 09/29/18 08/04/19 Rx potassium 99 mg tablet 99 mg PO BID tab 09/29/18 08/04/19 History pyridoxine (vitamin B6) 100 mg 100 mg PO BID tab 09/29/18 08/04/19 History tablet sumatriptan succinate 100 mg tablet See Rx Instructions PO .COMPLEX 09/29/18 08/04/19 Rx #10 tab pen needle, diabetic 31 gauge x #100 ea 10/05/18 08/04/19 Rx 3/16" lancets #50 ea 11/09/18 08/04/19 Rx montelukast 10 mg tablet 10 mg PO QPM #30 tab 11/23/18 08/04/19 Rx spironolactone 100 mg tablet 50 mg PO BID #90 tab 12/11/18 08/04/19 Rx metoprolol tartrate 25 mg tablet See Rx Instructions PO BID PRN #90 01/04/19 08/04/19 Rx tab ciclesonide 160 mcg/actuation See Rx Instructions .ROUTE 01/06/19 08/04/19 Rx aerosol inhaler .COMPLEX #6.1 gm metoprolol tartrate 50 mg tablet See Rx Instructions .ROUTE 01/25/19 08/04/19 Rx .COMPLEX #270 tab clindamycin phosphate 1 % lotion 1 appln TOP DAILY #60 ml 02/22/19 08/04/19 Rx levalbuterol tartrate 45 2 puffs INH Q6H PRN #15 gm 05/03/19 08/04/19 Rx mcg/actuation aerosol inhaler furosemide 20 mg tablet 20 mg PO DAILY PRN #30 ea 05/25/19 08/04/19 Rx omeprazole 20 mg capsule,delayed 20 mg PO BID #60 cap 05/26/19 08/04/19 Rx release empagliflozin 10 mg tablet 10 mg PO DAILY #30 tab 06/01/19 08/04/19 Rx escitalopram oxalate 10 mg tablet 10 mg PO DAILY #30 tab 06/01/19 08/04/19 Rx blood sugar diagnostic ea 07/05/19 08/04/19 History insulin glargine 100 unit/mL (3 65 units SQ DAILY 30 Days #19.5 ml 07/16/19 08/04/19 Rx mL) subcutaneous pen ciprofloxacin HCl 500 mg tablet 500 mg PO Q12H #20 tab 07/30/19 08/04/19 Rx oxycodone 5 mg tablet See Rx Instructions PO Q6H PRN #30 07/30/19 08/04/19 Rx tab calcium carbonate [Calcium 500] 500 mg PO DAILY 08/04/19 08/04/19 History metformin 1,000 mg PO BID 08/04/19 08/04/19 History Patient History Medical History Asthma (Chronic) Atrial flutter, paroxysmal Chronic sinusitis (Inactive) Depression Hypercholesterolemia Migraine headache (Chronic) Obesity (Inactive) Statin intolerance Type 2 diabetes mellitus with insulin therapy Surgical History S/P section S/P hernia surgery S/P tonsillectomy S/P wisdom tooth extraction Family History Aunt Colorectal cancer Grandfather (Maternal) Prostate cancer Mother , age 55 of Pseudomonas sepsis Lupus Raynaud's disease Father Hypertension Denies family history of Ovarian cancer Myocardial infarction Breast cancer Social History Preferred Language: Turkish Communication Ability: Effective Visual Impairment: No Limitations Hearing Ability: Normal High School Band Teacher Required: No Beliefs That Will Affect Care: None marital status: Current Living Situation: Spouse and Family current occupational status: employed 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, 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 Other Information That Helps Us Care for You: No Feels Safe at Home: Yes Safety Concerns: Feels Safe At This Time Smoking Status: Never smoker Second Hand Exposure: No ; Hx Alcohol Use: Yes Alcohol type: wine and hard liquor Alcohol Intake Frequency: Rarely Alcohol Intake Frequency Comment: Very rare use Hx Substance Use: No Childhood Exposure to Second-Hand Smoke: No Dental Care, Regularly: Yes Physical Activity Frequency: Does not Exercise Seatbelt Use: always Sunscreen Use: No Review of Systems Constitutional: + fever; no chills and no fatigue Eyes: no worsening vision Ear, Nose, Mouth, Throat: no facial pain and no pain with swallowing Respiratory: no cough and no dyspnea Cardiovascular: no chest pain and no palpitations Gastrointestinal: no abdominal pain, no nausea and no vomiting Genitourinary: no dysuria, no difficulty urinating, no urinary frequency and no hematuria Musculoskeletal: no back pain Integumentary: no rash and no urticaria Neurologic: no gait abnormality and no unsteadiness Psychiatric: no behavioral changes and no depression Endocrine: no fatigue Physical Exam Constitutional: well developed and well nourished Neck: neck nontender Respiratory: normal respiratory effort; no respiratory distress and does not use accessory muscles Cardiovascular: Rate/Rhythm: regular rate Vessels: radial pulses present Extremities: no edema Gastrointestinal (Abdomen): Inspection/Auscultation: abdomen normal to inspection Percussion/Palpation: abdomen soft; abdomen nontender and no guarding Musculoskeletal: Head/Neck/Chest: normocephalic and head atraumatic Extremities: extremities normal to inspection Skin: no rashes and no lesions Trauma: no evidence of skin trauma Neurologic: awake; not obtunded Speech / Cognition: normal speech Motor/Sensory: no tremor Psychiatric: Orientation: alert and oriented x 3 Lymphatic: no lymphadenopathy Results & Data Vital Signs (Past 12 Hours) Vital Signs Temp Pulse Pulse Resp BP BP Pulse Ox 08/05/19 07:11 36.9 C 82 16 118/74 95 08/05/19 01:05 36.7 C 86 16 126/70 95 08/05/19 00:50 75 18 123/70 96 08/04/19 23:01 76 18 129/63 98 08/04/19 21:08 37.0 C 84 18 139/71 97 PG Care Time/CCT Total # of Minutes Spent Total Time Spent with Patient: Total time spent is greater than 50% in coordination of care (as documented) at patient's floor/unit and/or counseling patient: Coding Level of Care Code 36066 Inpt Consult Level 4 Diagnoses Left ureteral calculus N20.1 Complicated UTI (urinary tract infection) N39.0
[2019-08-05] MEDS ORDERED: FLUTICASONE FUROATE 200MCG 14 PUFFS/INHALER INH SCH (09:00)
[2019-08-05] MEDS ORDERED: Nursing to Pharmacy Communication SCH ×2 (09:45→17:00)
[2019-08-05] MEDS ORDERED: ONDANSETRON INJ 2 MG/ML 2 ML VIAL ONE (11:09)
[2019-08-05] MEDS ORDERED: fentaNYL citrate 100 MCG/2 ML VIAL ONE (11:09)
[2019-08-05] MEDS ORDERED: PROPOFOL IV EMULSION 10 MG/ML 20 ML VIAL IV ONE (11:09)
[2019-08-05] MEDS ORDERED: MIDAZOLAM HCL 1 MG/ML 2ML VIAL ONE (11:09)
[2019-08-05] MEDS ORDERED: LABETALOL HCL IV 5 MG/ML 20ML IV PRN (12:01)
[2019-08-05] MEDS ORDERED: PHENYLEPHRINE 100MCG/ML 5ML SYR IV PRN (12:01)
[2019-08-05] MEDS ORDERED: MEPERIDINE HCL 25 MG/ML CARP/VIAL IV PRN (12:01)
[2019-08-05] MEDS ORDERED: ATROPINE SULFATE 0.1 MG/ML 10ML SYR IV PRN (12:01)
[2019-08-05] MEDS ORDERED: ePHEDrine sulfate 50 MG/ML AMP IV PRN (12:01)
[2019-08-05] MEDS ORDERED: fentaNYL citrate 100 MCG/2 ML VIAL IV PRN (12:01)
--- NOTE | 2019-08-05 12:48 | Anesthesiology Consultation ---
Date of Service August 05, 2019 Patient tested negative for Covid 19 today. Assessment & Plan (1) Encounter for pre-operative examination: Chart Review Chart Review: Acceptable Risk for Surgery and Patient NOT seen in Pre Admission Testing Consults Requested none History Surgery Operation Date: 08/05/19 08:20 Proposed Procedures p Left Ureteroscopy, Left Stent Placement, Laser Lithotripsy - Justin Alexandre MD Height/Weight Height: 5 ft 6 in Weight: 122 kg Allergies Allergy/AdvReac Type Severity Reaction Status Date / Time erythromycin base Allergy Mild RASH Verified 08/05/19 04:09 Penicillins Allergy Mild RASH Verified 08/02/19 10:13 prednisone Allergy Mild RASH Verified 08/02/19 10:13 doxycycline Allergy Unknown . Verified 08/02/19 10:13 pravastatin Allergy Unknown . Verified 08/02/19 10:13 simvastatin Allergy Unknown . Verified 08/02/19 10:13 Sulfa (Sulfonamide Allergy Unknown RASH Verified 08/02/19 10:13 Antibiotics) acetaminophen Allergy Unknown Verified 08/04/19 23:06 [From Tylenol-Codeine #3] codeine Allergy Unknown Verified 08/04/19 23:06 [From Tylenol-Codeine #3] latex Allergy Rash Verified 08/05/19 04:09 hydrocodone AdvReac Mild SEVERE GASTON Verified 08/02/19 10:13 Medications Home Medications Medication Instructions Recorded Confirmed Last Taken ascorbic acid (vitamin C) 1,000 mg 2 gm PO BID tab 09/29/18 08/04/19 Unknown tablet bupropion HCl 200 mg tablet,12 hr 200 mg PO BID #180 ea 09/29/18 08/04/19 Unknown sustained-release fluticasone propionate 50 1 sprays INTNAS DAILY PRN 09/29/18 08/04/19 Unknown mcg/actuation nasal spray,suspension hydrocodone-homatropine 5 mg-1.5 5 ml PO Q6H PRN 09/29/18 08/04/19 Unknown mg/5 mL oral syrup lorazepam 0.5 mg tablet 0.5 mg PO DAILY 09/29/18 08/04/19 Unknown ondansetron HCl 8 mg tablet 8 mg PO Q8H PRN #30 tab 09/29/18 08/04/19 Unknown potassium 99 mg tablet 99 mg PO BID tab 09/29/18 08/04/19 Unknown pyridoxine (vitamin B6) 100 mg 100 mg PO BID tab 09/29/18 08/04/19 Unknown tablet sumatriptan succinate 100 mg tablet See Rx Instructions PO .COMPLEX 09/29/18 08/04/19 Unknown #10 tab pen needle, diabetic 31 gauge x #100 ea 10/05/18 08/04/19 Unknown 3/16" lancets #50 ea 11/09/18 08/04/19 Unknown montelukast 10 mg tablet 10 mg PO QPM #30 tab 11/23/18 08/04/19 Unknown spironolactone 100 mg tablet 50 mg PO BID #90 tab 12/11/18 08/04/19 Unknown metoprolol tartrate 25 mg tablet See Rx Instructions PO BID PRN #90 01/04/19 08/04/19 Unknown tab ciclesonide 160 mcg/actuation See Rx Instructions .ROUTE 01/06/19 08/04/19 Unknown aerosol inhaler .COMPLEX #6.1 gm metoprolol tartrate 50 mg tablet See Rx Instructions .ROUTE 01/25/19 08/04/19 Unknown .COMPLEX #270 tab clindamycin phosphate 1 % lotion 1 appln TOP DAILY #60 ml 02/22/19 08/04/19 Unknown levalbuterol tartrate 45 2 puffs INH Q6H PRN #15 gm 05/03/19 08/04/19 Unknown mcg/actuation aerosol inhaler furosemide 20 mg tablet 20 mg PO DAILY PRN #30 ea 05/25/19 08/04/19 Unknown omeprazole 20 mg capsule,delayed 20 mg PO BID #60 cap 05/26/19 08/04/19 Unknown release empagliflozin 10 mg tablet 10 mg PO DAILY #30 tab 06/01/19 08/04/19 Unknown escitalopram oxalate 10 mg tablet 10 mg PO DAILY #30 tab 06/01/19 08/04/19 Unknown blood sugar diagnostic ea 07/05/19 08/04/19 Unknown insulin glargine 100 unit/mL (3 65 units SQ DAILY 30 Days #19.5 ml 07/16/19 08/04/19 Unknown mL) subcutaneous pen ciprofloxacin HCl 500 mg tablet 500 mg PO Q12H #20 tab 07/30/19 08/04/19 08/04/19 11:30 oxycodone 5 mg tablet See Rx Instructions PO Q6H PRN #30 07/30/19 08/04/19 Unknown tab calcium carbonate [Calcium 500] 500 mg PO DAILY 08/04/19 08/04/19 Unknown metformin 1,000 mg PO BID 08/04/19 08/04/19 Unknown Active Medications Generic Name Dose Route Start Last Admin Trade Name Freq PRN Reason Stop Dose Admin Sodium Chloride 1,000 mls @ 150 mls/hr 08/05/19 01:40 08/05/19 12:08 Nss IV 09/04/19 01:39 0 mls/hr .Q6H40M GIANNA Infusion Insulin Aspart 0 units 08/05/19 06:00 08/05/19 11:51 Novolog Flexpen SC 09/04/19 05:59 Not Given Q6 GIANNA NPO Date Last Intake of Fluids: 08/04/19 Time Last Intake of Fluids: 18:00 Date Last Intake of Solids: 08/04/19 Time Last Intake of Solids: 18:00 Past Medical History Medical History Asthma (Chronic) Atrial flutter, paroxysmal Chronic sinusitis (Inactive) Depression Hypercholesterolemia Migraine headache (Chronic) Obesity (Inactive) Statin intolerance Type 2 diabetes mellitus with insulin therapy Past Family History Family History Aunt Colorectal cancer Grandfather (Maternal) Prostate cancer Mother , age 55 of Pseudomonas sepsis Lupus Raynaud's disease Father Hypertension Denies family history of Ovarian cancer Myocardial infarction Breast cancer Past Surgical History Surgical History S/P section S/P hernia surgery S/P tonsillectomy S/P wisdom tooth extraction Social History Smoking Status: Never smoker Hx Alcohol Use: Yes Alcohol type: wine and hard liquor alcohol intake frequency: holidays/special occasions only Hx Substance Use: No Physical Exam Vital Signs Last Vital Signs Temp 36.9 C 08/05/19 12:25 Pulse 82 08/05/19 12:25 Resp 18 08/05/19 12:25 BP 125/65 08/05/19 12:25 Pulse Ox 96 08/05/19 12:25 Testing Laboratory Results 08/04/19 21:53 08/04/19 21:53 Urine Color Yellow 08/04/19 23:08 Urine Appearance Cloudy (Clear) A 08/04/19 23:08 Urine pH 6.0 (4.5-7.5) 08/04/19 23:08 Ur Specific [place] 1.022 (1.000-1.030) 08/04/19 23:08 Urine Protein Negative (Negative) 08/04/19 23:08 Urine Glucose (UA) 2+ (Negative) H 08/04/19 23:08 Urine Ketones Negative (Negative) 08/04/19 23:08 Urine Nitrite Negative (Negative) 08/04/19 23:08 Ur Leukocyte Esterase 2+ (Negative) H 08/04/19 23:08 Urine WBC (Auto) >30 /hpf (0-5) H 08/04/19 23:08 Urine RBC (Auto) >30 /hpf (0-4) H 08/04/19 23:08 U Hyaline Cast (Auto) 1-5 /lpf (0-5) 08/04/19 23:08 U Epithel Cells (Auto) 10-20 /lpf (0-5) H 08/04/19 23:08 Urine Bacteria (Auto) Negative (Negative) 08/04/19 23:08 08/05/19 08/05/19 11:49 05:29 POC Glucose 100 H 118 H 08/04/19 23:08 POC Ur Test NEG Electrocardiogram Date: 08/05/19 Findings: + NSR @ (75)
--- NOTE | 2019-08-05 13:39 | Operative Report ---
PG Post Operative Report Pre & Post Diagnosis Operation Date: 08/05/19 08:20 Pre-Op Diagnosis: Hydronephrosis and Left Ureteral Stone Post-Op Diagnosis: Hydronephrosis and Left Ureteral Stone I identified the patient and participated in the time-out.: Yes Procedure Operation Date: 08/05/19 08:20 Actual Procedures p Cystoscopy,Left Ureteroscopy, Basket Stone Extraction and Left Ureteral Stent Placement, Laser Lithotripsy(Left) - Justin Alexandre MD Surgeon Gregorio Alexandre MD Industrial Maintenance Repairer none Estimated Blood Loss 0 Findings Consistent with Post-Op Diagnosis Specimens Stone for chemical analysis Description of Procedure The patient was identified in the preoperative holding area, appropriate informed consents were reviewed and completed and the patient was transferred to the operative suite. Upon arrival, appropriate antibiotics and anesthesia were administered and the patient was placed in dorsal lithotomy position and prepped and draped in sterile fashion. To begin the case I passed a 22 Swiss cystoscope with 30 degree lens and visual obturator. I was able to inspect the bladder which revealed no gross abnormalities. There was no stone debris within the bladder A left ureteral orifice was visualized without a stone crusting throughout. There was some mounding of the intramural ureter suggesting the location of the distal left ureteral stone. I intubated this left UO with a sensor wire which met resistance at the area of the mounding and I was able to gently push the wire beyond the stone. I then withdrew the cystoscope and I reentered with a semirigid ureteroscope which I guided into the distal left ureter. Approximately 3 cm inside the UO I encountered a solitary stone which was relatively small in size. I passed a basket and I grasped the stone and I was able to withdraw it from the ureter without difficulty. I then placed a 6 Swiss by 24 cm double-J ureteral stent seeing a good curl in the kidney as well as the bladder. She was reversed of anesthesia and taken to the PACU in stable condition after I emptied the bladder. There were no complications. The stone was passed off the table for chemical analysis. I attest to the content of the Intraoperative Record and any orders documented therein. Any exceptions are noted below.
--- NOTE | 2019-08-05 14:07 | Fluoroscopy Report ---
FL KUB CLINICAL HISTORY: LT CYSTO/RETRO/LASER/STENT COMPARISON STUDY: KUB and CT of the abdomen and pelvis August 04, 2019. FLUOROSCOPY TIME: 3 seconds. FLUOROSCOPIC IMAGES: 2 FINDINGS: Fluoroscopy was provided for left retrograde exam with ureteral stent insertion. The proxim al aspect of the left ureteral stent projects over the renal pelvis. Probable calculi within the lowe r pole of the left kidney are noted. IMPRESSION: Fluoroscopy provided for left retrograde exam with ureteral stent insertion. ACT 112: Negative or not required by law. Electronically signed by: Edson Alan M.D. 08/05/2019 2:06 PM
--- NOTE | 2019-08-05 14:53 | Anesthesiology Progress Note ---
Date of Service August 05, 2019 Anesthesia Post Procedure Vital Signs Vital Signs: Temp Pulse Pulse Pulse Resp BP BP 08/05/19 14:20 73 18 109/68 08/05/19 14:05 36.9 C 82 17 108/63 08/05/19 13:55 81 17 113/67 08/05/19 13:45 80 18 108/71 08/05/19 13:37 36.4 C L 83 21 106/59 L 08/05/19 12:25 36.9 C 82 18 125/65 08/05/19 07:11 36.9 C 82 16 118/74 08/05/19 01:05 36.7 C 86 16 126/70 08/05/19 00:50 75 18 123/70 08/04/19 23:01 76 18 129/63 08/04/19 21:08 37.0 C 84 18 139/71 Pulse Ox 08/05/19 14:20 93 08/05/19 14:05 92 08/05/19 13:55 92 08/05/19 13:45 96 08/05/19 13:37 99 08/05/19 12:25 96 08/05/19 07:11 95 08/05/19 01:05 95 08/05/19 00:50 96 08/04/19 23:01 98 08/04/19 21:08 97 Transfer of Care Handoff Completed per policy Notes Mental Status: alert / awake / arousable Patient Amnestic to Procedure: Yes Nausea / Vomiting: adequately controlled Pain: adequately controlled Airway Patency, RR, SpO2: stable & adequate BP & HR: stable & adequate Hydration State: stable & adequate Anesthetic Complications: no major complications apparent and Pt Satisfied with anesthetic care
[2019-08-05] MEDS ORDERED: CIPROFLOXACIN 500 MG TAB PO SCH (15:22)
[2019-08-05] MEDS ORDERED: FUROSEMIDE 20 MG TAB PO PRN (15:22)
[2019-08-05] MEDS ORDERED: CICLESONIDE SCH (15:22)
[2019-08-05] MEDS: cefTRIAXone SODIUM 2,000 MG in DEXTROSE 5% 50 ML IV SCH (15:35)
--- NOTE | 2019-08-05 17:11 | Electrocardiogram Report ---
Test Reason : Blood Pressure : / mmHG Vent. Rate : 079 BPM Atrial Rate : 079 BPM P-R Int : 162 ms QRS Dur : 090 ms QT Int : 402 ms P-R-T Axes : -02 009 009 degrees QTc Int : 460 ms Normal sinus rhythm Nonspecific ST abnormality Incomplete right bundle branch block When compared with ECG of 29-NOV-2016 15:39, No significant change was found Confirmed by Gregorio Bean ([id number]) on 08/05/2019 5:11:07 PM Referred By: REFERRED SELF Confirmed By:Garland Bean
[2019-08-05] MEDS: SODIUM CHLORIDE 0.9% 1000ML IV SCH (20:05)
[2019-08-05] MEDS ORDERED: IBUPROFEN 200 MG TAB PO ONE (20:30)
[2019-08-05] MEDS: METOPROLOL TARTRATE 25 MG TAB PO SCH (20:32)
[2019-08-05] MEDS: SPIRONOLACTONE 25 MG TAB PO SCH (20:32)
[2019-08-05] MEDS: PANTOprazole 40 MG TAB PO SCH (20:33)
[2019-08-05] MEDS: BuPROPion SR 100 MG TABCR PO SCH (20:33)
[2019-08-05] MEDS: CICLESONIDE INH SCH (20:36)
[2019-08-05] MEDS ORDERED: MONTELUKAST SODIUM 10 MG TABLET PO SCH (21:00)
--- NOTE | 2019-08-06 01:14 | Billing Data ---
Date of Service August 06, 2019 Coding Level of Care Code 58237 Initial Inpt Care Lvl 3
[2019-08-06] MEDS: SODIUM CHLORIDE 0.9% 1000ML IV SCH ×2 (02:18→08:58)
[2019-08-06 05:10] LABS: Basophils # (auto) 0.08 K/uL (0-0.2); Basophils % (auto) 0.8 %; Eosinophils # (auto) 0.52 K/uL (0-0.5); Eosinophils % (auto) 5.3 %; Hematocrit (blood only) 37.8 % (37-47); Hemoglobin 12.1 g/dL (12.0-16.0); Immature Granulocytes # (auto) 0.25 K/uL (0.00-0.02); Immature Granulocytes % (auto) 2.6 %; Lymphocytes # (auto) 3.05 K/uL (1.2-3.4); Lymphocytes % (auto) 31.3 %; Mean Corpuscular Hemoglobin 28.7 pg (25-34); Mean Corpuscular Volume 89.8 fL (80-100); Mean Platelet Volume 8.7 fL (7.4-10.4); Monocytes # (auto) 0.92 K/uL (0.11-0.59); Monocytes % (auto) 9.4 %; Neutrophils # (auto) 4.94 K/uL (1.4-6.5); Neutrophils % (auto) 50.6 %; Platelet Count 230 K/uL (130-400); RDW Standard Deviation 49.2 fL (36.4-46.3); Red Blood Count 4.21 M/uL (4.2-5.4); White Blood Count 9.76 K/uL (4.8-10.8)
[2019-08-06 06:05] LABS: BUN Creatinine Ratio 15.7 (10-20); Calcium 8.5 mg/dl (8.5-10.1); Creatinine Clr Calc Pharmacy 99.6 ml/min; Est GFR (African American) 87.6; Est GFR (Non-African American) 75.5; Potassium 3.8 mmol/L (3.5-5.1)
[2019-08-06] MEDS: SPIRONOLACTONE 25 MG TAB PO SCH (07:42)
[2019-08-06] MEDS: PANTOprazole 40 MG TAB PO SCH (07:42)
[2019-08-06] MEDS: BuPROPion SR 100 MG TABCR PO SCH (07:42)
[2019-08-06] MEDS: METOPROLOL TARTRATE 25 MG TAB PO SCH (07:43)
[2019-08-06] MEDS: CICLESONIDE INH SCH (07:43)
[2019-08-06] MEDS ORDERED: LORazepam 0.5 MG TAB PO PRN (09:00)
[2019-08-06] MEDS ORDERED: ESCITALOPRAM OXALATE 10 MG TAB PO SCH (09:00)
[2019-08-06] MEDS: INSULIN ASPART 100 UNITS/ML 3 ML PEN SC SCH ×2 (09:58→13:21)
[2019-08-06] MEDS ORDERED: IBUPROFEN 200 MG TAB PO STA (12:57)
--- NOTE | 2019-08-06 13:09 | Urology Progress Note ---
Date of Service August 06, 2019 Assessment & Plan (1) Left ureteral calculus: POD 1 s/p Stone treatment and stent. Agree with abx for 7-10 days. Monitor for other issues. Call if any more fevers or chills. Increase activity and diet ast tolerated. Home if able to determine UTI and abx agent. Continue with hydration. Call if any issues. Okay to follow up with Dr. Alexandre in next few weeks. Subjective Postop from stent placement and stone treatment for obstruction issues. Patient has been tolerating well. Has noticed some frequency and urgency. Has not had severe pain in the back and flank. Does have occasional burning and irritation. No severe episodes or major changes. No new nausea or vomiting. Had tolerated anesthesia without major problems Developed loose stools. Has been on ABx for UTI. NO other changes or issues. Review of Systems Review of Systems: All systems reviewed & are unremarkable except as noted in HPI & below Physical Exam Physical Exam: General: Alert in no acute distress. HEENT: Normocephalic Atraumatic. Inspection normal. Cranial Nerves 2-12 Grossly intact. Normal inspection of face. Normal inspection of neck. Psychologic: Normal affect. Respiratory: Nonlabored. No use of accessory muscles. No tachypnea or dyspnea. Cardiovascular: No tachycardia Skin: Dickinson and Dry. No rashes or visible lesions. Extremities/Lymphatics: No edema Abdomen: Soft Non-distended. No rebound or guarding. Obese Results & Data Vital Signs (Past 12 Hours) Vital Signs Temp Pulse Pulse Resp BP Pulse Ox 08/06/19 12:25 36.5 C 70 18 116/77 93 08/06/19 07:20 36.9 C 80 18 120/82 94 08/06/19 02:50 36.7 C 68 20 124/79 95 PG Care Time/CCT Total # of Minutes Spent Total Time Spent with Patient: Total time spent is greater than 50% in coordination of care (as documented) at patient's floor/unit and/or counseling p atient: Coding Level of Care Code 44230 Subseq Hosp Care Lvl 3 Diagnoses Left ureteral calculus N20.1
[2019-08-06] MEDS: cefTRIAXone SODIUM 2,000 MG in DEXTROSE 5% 50 ML IV SCH (13:58)
[2019-08-11 03:24] LABS: Component 2 DNR; Source URETER STONE
--- NOTE | 2019-08-12 23:09 | Discharge Summary ---
Date of Service August 06, 2019 Admission HPI Per Admitting Provider 53-year-old female past medical history nephrolithiasis, DM 2, paroxysmal A. flutter, asthma, migraine headaches presents to the emergency room via suggestion from Dr. Alexandre with Urology for obstructive calculus and UTI. In the ED was found to have a leukocytosis to 13.00 with left shift, MATEO with creatinine 1.23, UA with blood, LE, greater than 30 WBCs. KUB without evidence of obstructive calculus, CTAP with persistent 4 x 3 x 5 mm stone at the left UVJ with mild left-sided hydroureteronephrosis. Dr. Alexandre will take to the OR tomorrow for removal of calculus. Patient was given 1 L NSS bolus, IV ceftria xone 2 g. Hospitalist service was consulted for admission. On my interview patient reports that she has had fevers off and on with a T-max of 102 since last Friday. Was seen by her primary care provider who performed a UA and urine culture positive for pansensitive E. coli, received a "pain shot" in the office and was given a prescription for ciprofloxacin 500 mg p.o. twice daily. Patient was on antibiotics for several days, still with intermittent fevers. Given her history of nephrolithiasis had a CTAP which showed a stone in the left UVJ. A consult was placed to urology. This afternoon was called by the urology office and advised to come to the hospital for admission for surgery tomorrow to remove the calculus. Over the last week the patient also endorses intermittent nausea, but no vomiting, back pain, dysuria, gross hematuria, urinary urgency or frequency. She also denies chest pain, shortness of breath, headache, dizziness, abdominal pain, constipation, diarrhea. Has a family history of nephrolithiasis on her father's side. The patient reports that she has been "drinking a lot of water lately" in an effort to minimize her risk of future kidney stones. Principal Diagnosis kidney stones Discharge Exam Constitutional: WD/WN, vitals as above Eyes: PERRL, conjunctivae normal, anicteric sclerae ENMT: external ear and nose normal, oropharynx normal Neck: normal visual inspection Respiratory: normal respiratory effort, lungs clear to auscultation Cardiovascular: RRR, no murmur, no edema Gastrointestinal (Abdomen): normal bowel sounds, soft, nontender, no hepatosplenomegaly Musculoskeletal: no cyanosis or clubbing, extremities motor strength 5/5 Skin: no rashes, warm and dry Neurologic: AAOx3, normal speech. PERRLA, EOMI, no nystagmus. Normal visual acuity bilaterally. Bilateral UE, LE, and face without sensory or motor deficits. DTRs normal. II- XII intact bilaterally. No tremor. Psychiatric: A+Ox3, euthymic affect Discharge Data Allergies Allergy/AdvReac Type Severity Reaction Status Date / Time erythromycin base Allergy Mild RASH Verified 08/11/19 15:02 Penicillins Allergy Mild RASH Verified 08/11/19 15:02 prednisone Allergy Mild RASH Verified 08/11/19 15:02 doxycycline Allergy Unknown . Verified 08/11/19 15:02 pravastatin Allergy Unknown . Verified 08/11/19 15:02 simvastatin Allergy Unknown . Verified 08/11/19 15:02 Sulfa (Sulfonamide Allergy Unknown RASH Verified 08/11/19 15:02 Antibiotics) acetaminophen Allergy Unknown Verified 08/11/19 15:02 [From Tylenol-Codeine #3] codeine Allergy Unknown Verified 08/11/19 15:02 [From Tylenol-Codeine #3] latex Allergy Rash Verified 08/11/19 15:02 hydrocodone AdvReac Mild SEVERE GASTON Verified 08/11/19 15:02 Consultations 08/04/19 23:57 ED Decision to Admit Stat 08/05/19 01:32 Consult Urology Routine Procedures Performed Operation Date: 08/05/19 08:20 Actual Procedures p Laser Lithotripsy(Left) - Justin Alexandre MD s Cystoscopy,Left Ureteroscopy, (Left) - Justin Alexandre MD s Basket Stone Extraction and Left Ureteral Stent Placement,(Left) - Justin Alexandre MD Ordered Studies 08/04/19 22:40 CT abd pelvis wo con Urgent 08/05/19 12:30 FL KUB Routine 08/05/19 12:55 FL fluoroscopy <1hr Routine Hospital Course (1) Kidney stones: Left ureteral calculus: Kidney stones: 53-year-old female past medical history nephrolithiasis, DM 2, paroxysmal A. flutter, asthma, migraine a for complicated UTI with left-sided nephroureteronephrosis secondary to obstructive calculus. On day 2: POD 1 s/p Stone treatment and stent. will discharge on abx for 7-10 days. Monitor for other issues. Call if any more fevers or chills. Increase activity and diet ast tolerated. Complicated UTI secondary to obstructive calculus: as stated above. MATEO: Likely post renal secondary to obstructive calculus. improved Paroxysmal a flutter: Continue metoprolol tartrate once diet is advanced. DM 2: Hold home Lantus, Jardiance, metformin. Sliding scale insulin. Asthma: Arnuity Ellipta 2 puffs twice daily. Hold montelukast until no longer n.p.o. Depression: Hold home meds, resume after surgery. CODE STATUS: FULL CODE FEN GI: N.p.o. now for surgery DVT prophylaxis: SCDs, can consider medical prophylaxis after surgery Dispo: med/surg, for surgery this a.m. by Dr. Alexandre Continue with hydration. (2) Complicated UTI (urinary tract infection): (3) Type 2 diabetes mellitus with insulin therapy: (4) Asthma: (5) Atrial flutter, paroxysmal: (6) Depression: (7) Migraine headache: Total Time Total Time Spent Total Time Spent (In Minutes): 32 Total Time Includes: Examination of the Patient, Discharge Planning and Medication Reconciliation Discharge Plan Discharge Items Patient Disposition: Home - Self-Care Reason For Visit: NEPHROLITHIASIS, UTI Discharge Diagnosis: UTI Condition on Discharge: Good Activity: Resume your previous activity Non-emergency contact: Primary Care Provider Call non-emergency contact if: you have any medication questions Follow-up/Referrals: Ankita Tony MD [Primary Care Provider] - 08/13/19 10:20 am (If you need to change this follow up appointment, please call [phone].) Diet: Regular Addtl Attending Provider Instructions: You have been hospitalized for an acute medical problem. During your stay at [facility], we have made an effort to correct the problem that brought you to the hospital while keeping you as comfortable as possible. Medications were used to bring your condition under control and your discharge instructions will include directions for any medications you should take after leaving the hospital. Please make sure you see your Primary Care Provider as part of your follow up plan. follow up with Urology in 2 weeks and PCP IN 10-14 Days Pending Studies at Discharge: No Stand-Alone Forms: My [facility], Smoking Cessation Medications and DC Order Prescriptions: New cefdinir 300 mg capsule 300 mg PO BID 10 Days Qty: 20 RF: 0 Continued (DME) pen needle, diabetic [BD Ultra-Fine Mini Pen Needle] 31 gauge x 3/16" needle See Dose Instructions .ROUTE .MEDSUPPLY Qty: 100 RF: 3 (DME) lancets [Accu-Chek Softclix Lancets] misc See Dose Instructions .ROUTE .MEDSUPPLY Qty: 50 RF: 5 montelukast 10 mg tablet 10 mg PO QPM Qty: 30 RF: 11 spironolactone 100 mg tablet 50 mg PO BID Qty: 90 RF: 3 metoprolol tartrate 25 mg tablet See Rx Instructions PO BID PRN (Reason: palpitations) Qty: 90 RF: 3 ciclesonide [Alvesco] 160 mcg/actuation HFA aerosol inhaler See Rx Instructions .ROUTE .COMPLEX Qty: 6.1 RF: 11 metoprolol tartrate 50 mg tablet See Rx Instructions .ROUTE .COMPLEX Qty: 270 RF: 3 levalbuterol tartrate [Xopenex HFA] 45 mcg/actuation HFA aerosol inhaler 2 puffs INH Q6H PRN (Reason: shortness of breath or wheezing) Qty: 15 RF: 3 furosemide 20 mg tablet 20 mg PO DAILY PRN (Reason: edema) Qty: 30 RF: 5 omeprazole 20 mg capsule,delayed release(DR/EC) 20 mg PO BID Qty: 60 RF: 5 Basaglar KwikPen U-100 Insulin 100 unit/mL (3 mL) insulin pen 65 units SQ DAILY 30 Days Qty: 19.5 RF: 5 lorazepam 0.5 mg tablet 0.5 mg PO DAILY RF: 0 fluticasone propionate [Allergy Relief (fluticasone)] 50 mcg/actuation spray,suspension 1 sprays INTNAS DAILY PRN (Reason: ALLERGIES) RF: 0 hydrocodone-homatropine [Hydromet] 5-1.5 mg/5 mL syrup 5 ml PO Q6H PRN (Reason: Cough) RF: 0 pyridoxine (vitamin B6) 100 mg tablet 100 mg PO BID RF: 0 ascorbic acid (vitamin C) 1,000 mg tablet 2 gm PO BID RF: 0 potassium 99 mg tablet 99 mg PO BID RF: 0 sumatriptan succinate [Imitrex] 100 mg tablet See Rx Instructions PO .COMPLEX Qty: 10 RF: 0 ondansetron HCl [Zofran] 8 mg tablet 8 mg PO Q8H PRN (Reason: nausea and vomiting) Qty: 30 RF: 0 bupropion HCl 200 mg tablet sustained-release 12 hr 200 mg PO BID Qty: 180 RF: 1 Jardiance 10 mg tablet 10 mg PO DAILY Qty: 30 RF: 2 escitalopram oxalate [Lexapro] 10 mg tablet 10 mg PO DAILY Qty: 30 RF: 2 oxycodone 5 mg tablet See Rx Instructions PO Q6H PRN (Reason: pain) Qty: 30 RF: 0 clindamycin phosphate 1 % lotion 1 appln TOP DAILY Qty: 60 RF: 2 (DME) Accu-Chek Guide test strips Strip See Rx Instructions .ROUTE .MEDSUPPLY RF: 0 calcium carbonate [Calcium 500] 500 mg calcium (1,250 mg) Tablet 500 mg PO DAILY RF: 0 metformin 500 mg tablet extended release 24hr 1,000 mg PO BID RF: 0 Discontinued ciprofloxacin HCl 500 mg tablet 500 mg PO Q12H Qty: 20 RF: 0 Discharge Orders: Discharge Order (Routine); Ordered 08/06/19 Ordered By: Rolando Lackey Admission Data Admit Date/Time: 08/05/19 00:26 Attending Provider: Rolando Lackey Admit Provider: Nitin Damico Primary Care Provider: Ankita Tony Other Providers: Justin Alexandre ; Nitin Damico Other Interventions: Discharge Summary Assessment (RN) Last Done: 08/06/19 15:08 DC Date/Time DO NOT enter until pt leaves facility: 08/06/19 15:40 Coding Level of Care Code D/C Day Management >30 mins Diagnoses Kidney stones N20.0 Complicated UTI (urinary tract infection) N39.0 Type 2 diabetes mellitus with insulin therapy E11.9; Z79.4 Asthma J45.909 Atrial flutter, paroxysmal I48.92 Depression F32.9 Migraine headache G43.909 Time Spent (min) 32
== END 2019-08-06 15:40 | disposition home or self-care (01) | DRG 660 ==
LOC: ED 21:06 → 3W 08-05 00:26 → SUATTDRO 08-05 00:26 → 3W 08-05 00:52

== ENCOUNTER 2020-09-26 15:01 | Inpatient (IN) ==
[2020-09-26] MEDS ORDERED: MECLIZINE HCL 25 MG TAB PO STA (16:55)
[2020-09-26] MEDS ORDERED: ONDANSETRON INJ 2 MG/ML 2 ML VIAL IV STA (16:55)
[2020-09-26] MEDS ORDERED: SODIUM CHLORIDE 0.9% 1000ML 1,000 ML IV ONE ×2 (16:55→18:21)
[2020-09-26] MEDS ORDERED: KETOROLAC TROMETHAMINE 15 MG/ML VIAL IV ONE (16:58)
--- NOTE | 2020-09-26 16:58 | Emergency Department Note ---
Impression & Plan Dizzy, Hypercalcemia, Headache, Weakness ED Provider Note NAME: KAREEM QUINTERO AGE: 55 SEX: F : 1965 ARRIVES VIA: Walk-In INFORMANT: Patient ED PROVIDER(S): Cesar Felton DO CHIEF COMPLAINT: Dizzy HPI: Patient is a 55-year-old female with a past medical history of GERD, kidney stones, depression, paroxysmal A. fib, migraines and asthma that presents the ER for dizziness. She notes that dizziness started this past Friday. It comes and goes with movement. Nearly resolves with rest. She gets really nauseated with it. She was vomiting Friday and part of Friday. Denies any chest pain or shortness of breath. Nausea has abated now. No dysuria urgency or frequency. No weakness or numbness in arms or legs that is focal. She does f eel weak all over. ROS: See above HPI for pertinent positives & negatives. A total of 10 systems reviewed and were otherwise negative. PAST MEDICAL HISTORY:See Below PAST SURGICAL HISTORY:See Below FAMILY HISTORY:See Below SOCIAL HISTORY:See Below HOME MEDICATIONS:See Below ALLERGIES:See Below VITALS:See Below PHYSICAL EXAMINATION: GENERAL: Sitting up in bed, alert, well appearing, well nourished, no distress, non-toxic EYE EXAM: normal conjunctiva. PERRL and EOM's intact. OROPHARYNX: no exudate, no erythema, lips, buccal mucosa, and tongue normal and mucous membranes are moist NECK: supple, no nuchal rigidity, no adenopathy, non-tender LUNGS: Clear to auscultation. Normal chest wall mechanics HEART: no murmurs, S1 normal and S2 normal ABDOMEN: abdomen soft, non-tender, normo-active bowel sounds, no masses, no rebound or guarding. BACK: Back is symmetrical on inspection and there is no deformity, no midline tenderness, no CVA tenderness. SKIN: no rashes and no bruising UPPER EXTREMITIES: upper extremities are grossly normal. LOWER EXTREMITIES: No pitting edema. NEURO EXAM: Normal sensorium, cranial nerves II-XII intact, normal speech, no weakness of arms, no weakness of legs. No drift. Finger to nose intact. Gross sensation intact. Outh-nr-[id number] intact. Rapid alternating movements of upper extremities intact. MEDICAL DECISION MAKING: Patient is a 55-year-old female who presents the ER for dizziness which is been present for the past several days. IV was demonstrated was obtained. Labs show mild leukocytosis of 11,000. Hemoglobin slightly elevated at 16. Do favor secondary dehydration. BMP with mild hypokalemia 3.2. Creatinine slightly elevated at 1.5. Calcium was significantly elevated at 14.5. Lipase was unremarkable. Covid was negative. Patient does take Tums. CT head was negative. Uncertain of the true cause of this at this time but patient was updated bedside. She is given 2 L of IV fluids and discussed with hospitalist admitted for further work-up. Triage Nursing notes reviewed. Limited review of prior medical records performed Vital Signs: reviewed and remarkable for no significant abnormalities Differential diagnosis: Differential diagnosis includes etiologies such as benign positional vertigo, dehydration, hypovolemia, anemia, tumor, infection, hypoglycemia, electrolyte abnormalities, cardiac sources, intracerebral event, toxicologic, neurological, as well as others were entertained. ER treatment provided: See below Diagnostics interpreted by me: Cardiac Monitoring: An order was placed for continuous cardiac monitoring. The monitor shows a rate of 82 with sinus rhythm. Laboratory studies: As stated above and show below. Imaging studies: CT head was unremarkable Consultation(s): none Procedures: none Critical Care: None Past Med/Surg History Medical History (Updated 09/26/20 @ 22:58 by Cesar Felton DO) Anxiety and depression Asthma Atrial flutter, paroxysmal Hx of, with RVR, causing LV systolic dysfunction. LV function improved with resolution of a-flutter with cardioversion in 2009. Chronic sinusitis Fatty liver GERD (gastroesophageal reflux disease) Grief reaction History of cardiac murmur Echo 06/2018 = trace mitral and tricuspid regurgitation Hydroureteronephrosis Hypercholesterolemia Kidney stones Left ureteral calculus Migraine headache Obesity Statin intolerance Type 2 diabetes mellitus with insulin therapy Surgical History H/O oral surgery History of cardioversion 2009 History of colonoscopy History of cystoscopy WITH STENT PLACED History of myringotomy History of tonsillectomy and adenoidectomy History of transesophageal echocardiography (DASIA) S/P section X 1 S/P hernia surgery X 2 S/P tonsillectomy S/P wisdom tooth extraction Status post laser lithotripsy of ureteral calculus Family History Aunt Colorectal cancer Grandfather (Maternal) Prostate cancer Mother , age 55 of Pseudomonas sepsis Lupus Raynaud's disease Father , age 85 Hypertension Clotting disorder Peptic ulcer disease Denies family history of Ovarian cancer Myocardial infarction Breast cancer Social History Smoking Status: Never smoker Second Hand Exposure: No; Do You Dip or Chew Tobacco: No; Hx Alcohol Use: Yes Alcohol type: wine and hard liquor Alcohol Intake Frequency Comment: Very rare use Hx Substance Use: No Preferred Language: Bengali Communication Ability: Effective Visual Impairment: No Limitations Hearing Ability: Normal [employer] Required: No Beliefs That Will Affect Care: None marital status: Current Living Situation: Spouse current occupational status: employed 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, 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 Other Information That Helps Us Care for You: No Feels Safe at Home: No Is there a partner from a previous relationship who is making you feel unsafe now?: No Any Concerns about Your Family Situation: No Would You Like to Speak to Someone About Your Situation: No Safety Concerns: Feels Safe At This Time Childhood Exposure to Second-Hand Smoke: No Dental Care, Regularly: Yes Physical Activity Frequency: Does not Exercise Seatbelt Use: always Sunscreen Use: No Assistive Devices: Contacts and Glasses Allergies Allergies Allergy/AdvReac Type Severity Reaction Status Date / Time codeine Allergy Intermediate SEVERE Verified 09/26/20 17:38 [From Tylenol-Codeine #3] MIGRAINES latex Allergy Intermediate LIPS Verified 09/26/20 17:38 SWELLING pravastatin Allergy Intermediate Hives Verified 09/26/20 17:38 simvastatin Allergy Intermediate Hives Verified 09/26/20 17:38 doxycycline Allergy Mild Rash Verified 09/26/20 17:38 erythromycin base Allergy Mild RASH Verified 09/26/20 17:38 Penicillins Allergy Mild RASH Verified 09/26/20 17:38 prednisone Allergy Mild RASH Verified 09/26/20 17:38 Sulfa (Sulfonamide Allergy Mild RASH Verified 09/26/20 17:38 Antibiotics) acetaminophen Allergy Unknown Verified 09/26/20 17:38 [From Tylenol-Codeine #3] empagliflozin AdvReac Mild Increase Verified 09/26/20 17:38 [From Jardiance] yeast infections and pt reporting worsening mood hydrocodone AdvReac Mild SEVERE [facility] Verified 09/26/20 17:38 Home Meds Home Medications Medication Instructions Recorded Confirmed fluticasone propionate 50 1 sprays INTNAS DAILY PRN 09/29/18 09/26/20 mcg/actuation nasal spray,suspension (Allergy Relief (fluticasone)) ascorbic acid (vitamin C) 1,000 mg 1 g PO BID 08/30/19 09/26/20 tablet calcium carbonate 600 mg calcium 600 mg PO BID 08/30/19 09/26/20 (1,500 mg) tablet (Calcium) cholecalciferol (vitamin D3) 50 150 mcg PO BID 08/30/19 09/26/20 mcg (2,000 unit) capsule (Vitamin D3) cyanocobalamin (vitamin B-12) 2,500 mcg PO QAM 08/30/19 09/26/20 2,500 mcg tablet garlic 1,000 mg PO BID 08/30/19 09/26/20 potassium chloride See Rx Instructions .ROUTE .COMPLEX 02/23/20 09/26/20 aspirin 81 mg tablet,delayed 81 mg PO QAM 09/26/20 09/26/20 release (Aspirin Low Dose) ciclesonide 160 mcg/actuation 1 - 2 puff INHALATION QAM 09/26/20 09/26/20 aerosol inhaler (Alvesco) furosemide 20 mg tablet (Lasix) 20 mg PO BID 09/26/20 09/26/20 insulin glargine 100 unit/mL (3 60 unit SQ HS 09/26/20 09/26/20 mL) subcutaneous pen (Aleksandraglar Saul U-100 Insulin) metoprolol tartrate 50 mg tablet 75 mg PO BID 09/26/20 09/26/20 spironolactone 100 mg tablet 50 mg PO BID 09/26/20 09/26/20 Previous Rx's Medication Instructions Recorded lorazepam 0.5 mg tablet 0.5 mg PO DAILY PRN #30 tab 08/13/19 bupropion HCl 200 mg tablet,12 hr 200 mg PO BID #180 ea 08/16/19 sustained-release pen needle, diabetic 31 gauge x #100 ea 10/05/19 3/16" (BD Ultra-Fine Mini Pen Needle) lancets (Accu-Chek Fastclix Lancet #200 ea 10/13/19 Drum) ondansetron HCl 8 mg tablet 8 mg PO Q8H PRN #30 tab 11/25/19 sumatriptan succinate 100 mg See Rx Instructions PO .COMPLEX 11/25/19 tablet (Imitrex) #10 tab omeprazole 20 mg capsule,delayed 20 mg PO BID #60 cap 11/29/19 release levalbuterol tartrate 45 2 inh INH Q6H PRN #15 gm 01/26/20 mcg/actuation aerosol inhaler (Xopenex HFA) montelukast 10 mg tablet 10 mg PO QPM #90 tab 01/26/20 fluoxetine 20 mg capsule 20 mg PO QAM #30 cap 04/10/20 blood sugar diagnostic (Accu-Chek #200 ea 06/14/20 Guide test strips) semaglutide (Ozempic) 0.5 mg SUBCUT .COMPLEX #1.5 ml 06/20/20 diclofenac sodium 75 mg 75 mg PO BID PRN #60 tab 07/12/20 tablet,delayed release nystatin 100,000 unit/mL oral 500,000 unit BUCCAL QID 10 Days 08/23/20 suspension #200 ml metformin 500 mg tablet,extended 1,000 mg PO BID #360 tab 08/25/20 release 24hr Results & Data (ED) Vital Signs Vital Signs - 24 hr 09/26/20 15:05 09/26/20 17:26 09/26/20 17:30 Temperature 36.8 C Temperature Source Temporal Artery Scan Pulse Rate 97 H 86 91 H Pulse Rate from SpO2 Sensor 86 91 H Pulse Rhythm Regular Pulse Strength Normal Respiratory Rate 20 17 21 Respiratory Effort / Characteristics Non-Labored Spontaneous Respiratory Depth Normal Blood Pressure 120/78 120/87 127/82 Blood Pressure Mean 92 98 97 Pulse Oximetry 96 94 94 Oxygen Delivery Method Room Air Sepsis Recent Fever Within 48 Hours No Sepsis New/Unexplained Change in Mental Status No Sepsis Action Taken by Nursing No Action Required 09/26/20 17:31 09/26/20 18:00 09/26/20 18:32 Temperature Temperature Source Pulse Rate 90 85 Pulse Rate from SpO2 Sensor 88 Pulse Rhythm Pulse Strength Respiratory Rate 18 19 Respiratory Effort / Characteristics Respiratory Depth Blood Pressure 101/74 107/61 Blood Pressure Mean 83 76 Pulse Oximetry 94 95 Oxygen Delivery Method Room Air Sepsis Recent Fever Within 48 Hours Sepsis New/Unexplained Change in Mental Status Sepsis Action Taken by Nursing Laboratory Data Result diagrams: 09/26/20 17:25 09/26/20 17:25 Lab Results 09/26/20 09/26/20 09/26/20 Range/Units 17:25 17:25 17:25 WBC 11.69 H (4.8-10.8) K/uL RBC 5.22 (4.2-5.4) M/uL Hgb 16.1 H (12.0-16.0) g/dL Hct 47.0 (37-47) % MCV 90.0 (80-100) fL MCH 30.8 (25-34) pg MCHC 34.3 (32-36) g/dL RDW Std Deviation 46.0 (36.4-46.3) fL RDW Coeff of Sheridna 14.0 (11.5-14.5) % Plt Count 276 (130-400) K/uL MPV 9.9 (7.4-10.4) fL Immature Gran % (Auto) 0.6 % Neut % (Auto) 61.1 % Lymph % (Auto) 22.7 % Dukes % (Auto) 11.5 % Eos % (Auto) 3.8 % Baso % (Auto) 0.3 % Neut # (Auto) 7.16 H (1.4-6.5) K/uL Lymph # (Auto) 2.65 (1.2-3.4) K/uL Dukes # (Auto) 1.34 H (0.11-0.59) K/uL Eos # (Auto) 0.44 (0-0.5) K/uL Baso # (Auto) 0.03 (0-0.2) K/uL Immature Gran # (Auto) 0.07 H (0.00-0.02) K/uL PT 10.3 (9.0-12.0) Seconds INR 1.0 (0.9-1.1) Sodium 136 (136-145) mmol/L Potassium 3.2 L (3.5-5.1) mmol/L Chloride 98 (98-107) mmol/L Carbon Dioxide 29 (21-32) mmol/L Anion Gap 9.0 (3-11) BUN 27 H (7-18) mg/dl Creatinine 1.56 H (0.6-1.2) mg/dl Est Cr Clr Drug Dosing 53.9 ml/min Est GFR ( Amer) 43.2 ml/min Est GFR (Non-Af Amer) 37.3 ml/min BUN/Creatinine Ratio 17.2 (10-20) Glucose 125 H (70-99) mg/dl Calcium 14.5 H* (8.5-10.1) mg/dl Total Bilirubin 0.5 (0.2-1) mg/dl AST 17 (15-37) U/L ALT 32 (12-78) U/L Alkaline Phosphatase 73 (45-117) U/L Total Protein 8.4 H (6.4-8.2) gm/dl Albumin 4.1 (3.4-5.0) gm/dl Globulin 4.3 H (2.5-4.0) gm/dl Albumin/Globulin Ratio 1.0 (0.9-2) Lipase 118 (73-393) U/L Administered Medications Discontinued Medications Sodium Chloride (Nss 1000ml) 1,000 mls @ 999 mls/hr IV .Q1H1M ONE Stop: 09/26/20 17:55 Last Infusion: 09/26/20 18:26 Dose: 0 mls/hr Documented by: [id number] Admin: 09/26/20 17:18 Dose: 999 mls/hr Documented by: [id number] Sodium Chloride (Nss 1000ml) 1,000 mls @ 999 mls/hr IV .Q1H1M ONE Stop: 09/26/20 19:21 Last Infusion: 09/26/20 19:52 Dose: 0 mls/hr Documented by: [id number] Admin: 09/26/20 18:33 Dose: 999 mls/hr Documented by: [id number] Ketorolac Tromethamine (Ketorolac Tromethamine 15 Mg/Ml Vial) 15 mg IV NOW ONE Stop: 09/26/20 16:59 Last Admin: 09/26/20 17:19 Dose: 15 mg Documented by: [id number] Meclizine HCl (Meclizine Hcl 25 Mg Tab) 25 mg PO NOW STA Stop: 09/26/20 16:56 Last Admin: 09/26/20 17:18 Dose: 25 mg Documented by: [id number] Ondansetron HCl (Ondansetron Inj 2 Mg/Ml 2 Ml Vial) 4 mg IV NOW STA Stop: 09/26/20 16:56 Last Admin: 09/26/20 17:19 Dose: 4 mg Documented by: [id number] Potassium Chloride (Potassium Chloride 10 Meq Tabcr) 40 meq PO NOW STA Stop: 09/26/20 20:09 Last Admin: 09/26/20 20:20 Dose: 40 meq Documented by: [id number] Potassium Chloride (Potassium Chloride 10 Meq / 100ml Wtr) Confirm Administered Dose 10 meq IV .STK-MED ONE Stop: 09/26/20 20:19 Last Admin: 09/26/20 20:26 Dose: Not Given Documented by: [id number] Imaging Data Radiologist's Impression: Head CT 09/26/20 16:55 CT head/brain wo con CLINICAL HISTORY: [facility] COMPARISON STUDY: September 16, 2018. TECHNIQUE: Axial CT of the brain is performed from the vertex to the skull base. IV contrast was not administered for this examination. A dose lowering technique was utilized adhering to the principles of ALARA. CT DOSE: 537.48 mGy.cm FINDINGS: No intra or extra-axial mass lesions are visualized. There is no CT evidence of acute cortical infarction. There is no evidence of midline shift. There is no acute hemorrhage. No acute depressed calvarial fractures are visualized. There is no evidence of pathologic ventricular dilatation. There is no evidence of acute sinusitis IMPRESSION: No acute intracranial hemorrhage, no midline shift or space occupying lesions. ACT 112: Negative or not required by law. The above report was generated using voice recognition software. It may contain grammatical, syntax or spelling errors. Electronically signed by: Evelyn Reyna DO 09/26/2020 7:14 PM Discharge Plan Visit Data Chief Complaint: Headache Stated Complaint: HEADACHE x4 DAY,NAUSEA,DIZZY ED Provider: Cesar Felton Discharge Problem: Dizzy, Hypercalcemia, Headache, Weakness Patient Disposition: Admitted As Inpatient Discharge Instructions Interventions: ED Discharge Assessment Last Done: 09/26/20 21:50 Discharge Problem: Headache Qualifiers: Headache type: unspecified Headache chronicity pattern: unspecified pattern Intractability: not intractable Qualified Code(s): R51.9 - Headache, unspecified
[2020-09-26 17:38] LABS: Basophils # (auto) 0.03 K/uL (0-0.2); Basophils % (auto) 0.3 %; Eosinophils # (auto) 0.44 K/uL (0-0.5); Eosinophils % (auto) 3.8 %; Hemoglobin 16.1 g/dL (12.0-16.0); Immature Granulocytes # (auto) 0.07 K/uL (0.00-0.02); Immature Granulocytes % (auto) 0.6 %; Lymphocytes # (auto) 2.65 K/uL (1.2-3.4); Lymphocytes % (auto) 22.7 %; Mean Corpuscular Hemoglobin 30.8 pg (25-34); Mean Corpuscular Hgb Conc 34.3 g/dL (32-36); Mean Platelet Volume 9.9 fL (7.4-10.4); Monocytes # (auto) 1.34 K/uL (0.11-0.59); Monocytes % (auto) 11.5 %; Neutrophils # (auto) 7.16 K/uL (1.4-6.5); Neutrophils % (auto) 61.1 %; Platelet Count 276 K/uL (130-400); Red Blood Count 5.22 M/uL (4.2-5.4); White Blood Count 11.69 K/uL (4.8-10.8)
[2020-09-26 17:48] LABS: Prothrombin Time 10.3 Seconds (9.0-12.0)
[2020-09-26 18:08] LABS: Albumin Level 4.1 gm/dl (3.4-5.0); BUN Creatinine Ratio 17.2 (10-20); Bilirubin,Total 0.5 mg/dl (0.2-1); Calcium 14.5 mg/dl (8.5-10.1); Creatinine Clr Calc Pharmacy 53.9 ml/min; Est GFR (African American) 43.2 ml/min; Est GFR (Non-African American) 37.3 ml/min; Globulin 4.3 gm/dl (2.5-4.0); Potassium 3.2 mmol/L (3.5-5.1); Total Protein 8.4 gm/dl (6.4-8.2)
--- NOTE | 2020-09-26 19:15 | CT Scan Report ---
CT head/brain wo con CLINICAL HISTORY: [facility] COMPARISON STUDY: September 16, 2018. TECHNIQUE: Axial CT of the brain is performed from the vertex to the skull base. IV contrast was not administered for this examination. A dose lowering technique was utilized adhering to the principles of ALARA. CT DOSE: 537.48 mGy.cm FINDINGS: No intra or extra-axial mass lesions are visualized. There is no CT evidence of acute cortical infarc tion. There is no evidence of midline shift. There is no acute hemorrhage. No acute depressed calvar ial fractures are visualized. There is no evidence of pathologic ventricular dilatation. There is no evidence of acute sinusitis IMPRESSION: No acute intracranial hemorrhage, no midline shift or space occupying lesions. ACT 112: Negative or not required by law. The above report was generated using voice recognition software. It may contain grammatical, syntax o r spelling errors. Electronically signed by: Evelyn Reyna DO 09/26/2020 7:14 PM
--- NOTE | 2020-09-26 19:50 | History & Physical Report ---
Date of Service September 26, 2020 Assessment & Plan (1) Acute kidney injury: Plan: Rosalie Mccormack is a 55-year-old female with past medical history significant for type 2 diabetes, anxiety, depression, hyperlipidemia, paroxysmal atrial flutter, asthma, and recent diagnosis of thrush; who presents for concerns of 4 to 5 days of dizziness with associated nausea, vomiting, and inability to tolerate oral intake. Hypercalcemia: -Calcium of 14.5 on admission -Ionized calcium 1.59 -potential multifactorial causes of her elevated calcium at this time with potential etiologies including: vitamin D intoxication, milk alkali syndrome, primary hyperparathyroidism, verse less likely oncologic process -PTH intact pending -hold continued oral calcium supplementation at this point in time -Vitamin D in AM with repeat BMP and Pos Acute kidney injury: -Cr on admission of 1.56 -hold nephrotoxic medications at this time -continue NSS at 100mL/hr -re-check in AM Type 2 diabetes: -last A1c of 6.0 in April -hold home oral glycemic regimen -sliding scale insulin -BSGs ACHS Asthma: -transition home regimen to hospital formulary ?oral thrush: -patient started on nystatin as outpatient with PCP -no obvious signs of thrust or oral plaques at this time -continue Nystatin at this time Diet: Heart healthy/carb consistent CODE STATUS: Full code Risks of pattern (2) Serum calcium elevated: (3) Type 2 diabetes mellitus with insulin therapy: (4) Asthma: (5) Hypercholesterolemia: (6) Mixed hyperlipidemia: (7) Anxiety and depression: History of Present Illness Primary Care Provider: Ankita Tony MD Rosalie Mccormack is a 55-year-old female with past medical history significant for type 2 diabetes, anxiety, depression, hyperlipidemia, paroxysmal atrial flutter, asthma, and recent diagnosis of thrush; who presents for concerns of 4 to 5 days of dizziness with associated nausea, vomiting, and inability to tolerate oral intake. Originally noticed this after some nausea feelings early last week, with associated dizziness over the last several days. Did noticed that the dizziness was exacerbated through movement, and resolved with rest. Did not notice any association or increased dizziness with motion of her head, but only noticed when she was moving her entire body. In the ED did have multiple rounds of nausea when attempting to move around within the room or and transferred to the CT scanner table. Denies chest pain, shortness of breath, abdominal pain, changes in sensation of her arms or legs, significant changes in strength for upper or lower extremities. Feels somewhat weak all over but is not sure if this is because she has been dizzy and nauseous for several days now. Allergies Allergy/AdvReac Type Severity Reaction Status Date / Time codeine Allergy Intermediate SEVERE Verified 09/26/20 17:38 [From Tylenol-Codeine #3] MIGRAINES latex Allergy Intermediate LIPS Verified 09/26/20 17:38 SWELLING pravastatin Allergy Intermediate Hives Verified 09/26/20 17:38 simvastatin Allergy Intermediate Hives Verified 09/26/20 17:38 doxycycline Allergy Mild Rash Verified 09/26/20 17:38 erythromycin base Allergy Mild RASH Verified 09/26/20 17:38 Penicillins Allergy Mild RASH Verified 09/26/20 17:38 prednisone Allergy Mild RASH Verified 09/26/20 17:38 Sulfa (Sulfonamide Allergy Mild RASH Verified 09/26/20 17:38 Antibiotics) acetaminophen Allergy Unknown Verified 09/26/20 17:38 [From Tylenol-Codeine #3] empagliflozin AdvReac Mild Increase Verified 09/26/20 17:38 [From Jardiance] yeast infections and pt reporting worsening mood hydrocodone AdvReac Mild SEVERE GASTON Verified 09/26/20 17:38 Home Medications Medication Instructions Recorded Confirmed Type fluticasone propionate 50 1 sprays INTNAS DAILY PRN 09/29/18 09/26/20 History mcg/actuation nasal spray,suspension (Allergy Relief (fluticasone)) lorazepam 0.5 mg tablet 0.5 mg PO DAILY PRN #30 tab 08/13/19 09/26/20 Rx bupropion HCl 200 mg tablet,12 hr 200 mg PO BID #180 ea 08/16/19 09/26/20 Rx sustained-release ascorbic acid (vitamin C) 1,000 mg 1 g PO BID 08/30/19 09/26/20 History tablet calcium carbonate 600 mg calcium 600 mg PO BID 08/30/19 09/26/20 History (1,500 mg) tablet (Calcium) cholecalciferol (vitamin D3) 50 150 mcg PO BID 08/30/19 09/26/20 History mcg (2,000 unit) capsule (Vitamin D3) cyanocobalamin (vitamin B-12) 2,500 mcg PO QAM 08/30/19 09/26/20 History 2,500 mcg tablet garlic 1,000 mg PO BID 08/30/19 09/26/20 History pen needle, diabetic 31 gauge x #100 ea 10/05/19 09/26/20 Rx 3/16" (BD Ultra-Fine Mini Pen Needle) lancets (Accu-Chek Fastclix Lancet #200 ea 10/13/19 09/26/20 Rx Drum) ondansetron HCl 8 mg tablet 8 mg PO Q8H PRN #30 tab 11/25/19 09/26/20 Rx sumatriptan succinate 100 mg See Rx Instructions PO .COMPLEX 11/25/19 09/26/20 Rx tablet (Imitrex) #10 tab omeprazole 20 mg capsule,delayed 20 mg PO BID #60 cap 11/29/19 09/26/20 Rx release levalbuterol tartrate 45 2 inh INH Q6H PRN #15 gm 01/26/20 09/26/20 Rx mcg/actuation aerosol inhaler (Xopenex HFA) montelukast 10 mg tablet 10 mg PO QPM #90 tab 01/26/20 09/26/20 Rx potassium chloride See Rx Instructions .ROUTE .COMPLEX 02/23/20 09/26/20 History fluoxetine 20 mg capsule 20 mg PO QAM #30 cap 04/10/20 09/26/20 Rx blood sugar diagnostic (Accu-Chek #200 ea 06/14/20 09/26/20 Rx Guide test strips) semaglutide (Ozempic) 0.5 mg SUBCUT .COMPLEX #1.5 ml 06/20/20 09/26/20 Rx diclofenac sodium 75 mg 75 mg PO BID PRN #60 tab 07/12/20 09/26/20 Rx tablet,delayed release nystatin 100,000 unit/mL oral 500,000 unit BUCCAL QID 10 Days 08/23/20 09/26/20 Rx suspension #200 ml metformin 500 mg tablet,extended 1,000 mg PO BID #360 tab 08/25/20 09/26/20 Rx release 24hr aspirin 81 mg tablet,delayed 81 mg PO QAM 09/26/20 09/26/20 History release (Aspirin Low Dose) ciclesonide 160 mcg/actuation 1 - 2 puff INHALATION QAM 09/26/20 09/26/20 Hist ory aerosol inhaler (Alvesco) furosemide 20 mg tablet (Lasix) 20 mg PO BID 09/26/20 09/26/20 History insulin glargine 100 unit/mL (3 60 unit SQ HS 09/26/20 09/26/20 History mL) subcutaneous pen (Basaglar KwikPen U-100 Insulin) metoprolol tartrate 50 mg tablet 75 mg PO BID 09/26/20 09/26/20 History spironolactone 100 mg tablet 50 mg PO BID 09/26/20 09/26/20 History Past Med/Surg History Medical History (Updated 09/26/20 @ 22:58 by Cesar Felton, ) Anxiety and depression Asthma Atrial flutter, paroxysmal Hx of, with RVR, causing LV systolic dysfunction. LV function improved with resolution of a-flutter with cardioversion in 2009. Chronic sinusitis Fatty liver GERD (gastroesophageal reflux disease) Grief reaction History of cardiac murmur Echo 06/2018 = trace mitral and tricuspid regurgitation Hydroureteronephrosis Hypercholesterolemia Kidney stones Left ureteral calculus Migraine headache Obesity Statin intolerance Type 2 diabetes mellitus with insulin therapy Surgical History H/O oral surgery History of cardioversion 2009 History of colonoscopy History of cystoscopy WITH STENT PLACED History of myringotomy History of tonsillectomy and adenoidectomy History of transesophageal echocardiography (DASIA) S/P section X 1 S/P hernia surgery X 2 S/P tonsillectomy S/P wisdom tooth extraction Status post laser lithotripsy of ureteral calculus Family History Aunt Colorectal cancer Grandfather (Maternal) Prostate cancer Mother , age 55 of Pseudomonas sepsis Lupus Raynaud's disease Father , age 85 Hypertension Clotting disorder Peptic ulcer disease Denies family history of Ovarian cancer Myocardial infarction Breast cancer Social History Smoking Status: Never smoker Second Hand Exposure: No; Do You Dip or Chew Tobacco: No; Hx Alcohol Use: Yes Alcohol type: wine and hard liquor Alcohol Intake Frequency Comment: Very rare use Hx Substance Use: No Preferred Language: Burkinan Communication Ability: Effective Visual Impairment: No Limitations Hearing Ability: Normal Canal Driver Required: No Beliefs That Will Affect Care: None marital status: Current Living Situation: Spouse current occupational status: employed 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, [employer]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 Other Information That Helps Us Care for You: No Feels Safe at Home: No Is there a partner from a previous relationship who is making you feel unsafe now?: No Any Concerns about Your Family Situation: No Would You Like to Speak to Someone About Your Situation: No Safety Concerns: Feels Safe At This Time Childhood Exposure to Second-Hand Smoke: No Dental Care, Regularly: Yes Physical Activity Frequency: Does not Exercise Seatbelt Use: always Sunscreen Use: No Assistive Devices: Contacts and Glasses Review of Systems Review of Systems: All systems reviewed & are unremarkable except as noted in HPI & below Physical Exam Constitutional: WD/WN, vitals as above Eyes: PERRL, conjunctivae normal, anicteric sclerae Respiratory: normal respiratory effort, lungs clear to auscultation Auscultation: no crackles, no rales, no rhonchi and no wheezes Cardiovascular: Rate/Rhythm: regular rate and regular rhythm Heart Sounds: no gallop, no murmur and no cardiac rub Vessels: normal peripheral pulses; no JVD Extremities: no edema Gastrointestinal (Abdomen): Inspection/Auscultation: normal bowel sounds; abdomen not distended Percussion/Palpation: abdomen soft; abdomen nontender and no guarding Musculoskeletal: no cyanosis or clubbing, extremities motor strength 5/5 Skin: no rashes, warm and dry Neurologic: PERRL, EOMI, accommodation nl, no face palsy, no dysarthria CN's II-XI intact bilaterally and moves all extremities Psychiatric: Orientation: alert and oriented x 3 Results & Data Results & Data ([facility]) Vital Signs (Past 12 Hours) Vital Signs Temp Pulse Resp BP Pulse Ox 09/26/20 18:32 85 19 107/61 09/26/20 18:00 90 18 101/74 95 09/26/20 17:31 94 09/26/20 17:30 91 H 21 127/82 94 09/26/20 17:26 86 17 120/87 94 09/26/20 15:05 36.8 C 97 H 20 120/78 96 Laboratory Results 09/26/20 09/26/20 09/26/20 Range/Units 17:25 17:25 17:25 WBC 11.69 H (4.8-10.8) K/uL RBC 5.22 (4.2-5.4) M/uL Hgb 16.1 H (12.0-16.0) g/dL Hct 47.0 (37-47) % MCV 90.0 (80-100) fL MCH 30.8 (25-34) pg MCHC 34.3 (32-36) g/dL RDW Std Deviation 46.0 (36.4-46.3) fL RDW Coeff of [place] 14.0 (11.5-14.5) % Plt Count 276 (130-400) K/uL MPV 9.9 (7.4-10.4) fL Immature Gran % (Auto) 0.6 % Neut % (Auto) 61.1 % Lymph % (Auto) 22.7 % Person % (Auto) 11.5 % Eos % (Auto) 3.8 % Baso % (Auto) 0.3 % Neut # (Auto) 7.16 H (1.4-6.5) K/uL Lymph # (Auto) 2.65 (1.2-3.4) K/uL Person # (Auto) 1.34 H (0.11-0.59) K/uL Eos # (Auto) 0.44 (0-0.5) K/uL Baso # (Auto) 0.03 (0-0.2) K/uL Immature Gran # (Auto) 0.07 H (0.00-0.02) K/uL PT 10.3 (9.0-12.0) Seconds INR 1.0 (0.9-1.1) Sodium 136 (136-145) mmol/L Potassium 3.2 L (3.5-5.1) mmol/L Chloride 98 (98-107) mmol/L Carbon Dioxide 29 (21-32) mmol/L Anion Gap 9.0 (3-11) BUN 27 H (7-18) mg/dl Creatinine 1.56 H (0.6-1.2) mg/dl Est Cr Clr Drug Dosing 53.9 ml/min Est GFR ( Amer) 43.2 ml/min Est GFR (Non-Af Amer) 37.3 ml/min BUN/Creatinine Ratio 17.2 (10-20) Glucose 125 H (70-99) mg/dl Calcium 14.5 H* (8.5-10.1) mg/dl Total Bilirubin 0.5 (0.2-1) mg/dl AST 17 (15-37) U/L ALT 32 (12-78) U/L Alkaline Phosphatase 73 (45-117) U/L Total Protein 8.4 H (6.4-8.2) gm/dl Albumin 4.1 (3.4-5.0) gm/dl Globulin 4.3 H (2.5-4.0) gm/dl Albumin/Globulin Ratio 1.0 (0.9-2) Lipase 118 (73-393) U/L Medications Administered Home Medication List Medication Instructions Recorded fluticasone propionate 50 1 sprays INTNAS DAILY PRN 09/29/18 mcg/actuation nasal spray,suspension (Allergy Relief (fluticasone)) lorazepam 0.5 mg tablet 0.5 mg PO DAILY PRN #30 tab 08/13/19 bupropion HCl 200 mg tablet,12 hr 200 mg PO BID #180 ea 08/16/19 sustained-release ascorbic acid (vitamin C) 1,000 mg 1 g PO BID 08/30/19 tablet calcium carbonate 600 mg calcium 600 mg PO BID 08/30/19 (1,500 mg) tablet (Calcium) cholecalciferol (vitamin D3) 50 150 mcg PO BID 08/30/19 mcg (2,000 unit) capsule (Vitamin D3) cyanocobalamin (vitamin B-12) 2,500 mcg PO QAM 08/30/19 2,500 mcg tablet garlic 1,000 mg PO BID 08/30/19 pen needle, diabetic 31 gauge x #100 ea 10/05/19 3/16" (BD Ultra-Fine Mini Pen Needle) lancets (Accu-Chek Fastclix Lancet #200 ea 10/13/19 Drum) ondansetron HCl 8 mg tablet 8 mg PO Q8H PRN #30 tab 11/25/19 sumatriptan succinate 100 mg See Rx Instructions PO .COMPLEX 11/25/19 tablet (Imitrex) #10 tab omeprazole 20 mg capsule,delayed 20 mg PO BID #60 cap 11/29/19 release levalbuterol tartrate 45 2 inh INH Q6H PRN #15 gm 01/26/20 mcg/actuation aerosol inhaler (Xopenex HFA) montelukast 10 mg tablet 10 mg PO QPM #90 tab 01/26/20 potassium chloride See Rx Instructions .ROUTE .COMPLEX 02/23/20 fluoxetine 20 mg capsule 20 mg PO QAM #30 cap 04/10/20 blood sugar diagnostic (Accu-Chek #200 ea 06/14/20 Guide test strips) semaglutide (Ozempic) 0.5 mg SUBCUT .COMPLEX #1.5 ml 06/20/20 diclofenac sodium 75 mg 75 mg PO BID PRN #60 tab 07/12/20 tablet,delayed release nystatin 100,000 unit/mL oral 500,000 unit BUCCAL QID 10 Days 08/23/20 suspension #200 ml metformin 500 mg tablet,extended 1,000 mg PO BID #360 tab 08/25/20 release 24hr aspirin 81 mg tablet,delayed 81 mg PO QAM 09/26/20 release (Aspirin Low Dose) ciclesonide 160 mcg/actuation 1 - 2 puff INHALATION QAM 09/26/20 aerosol inhaler (Alvesco) furosemide 20 mg tablet (Lasix) 20 mg PO BID 09/26/20 insulin glargine 100 unit/mL (3 60 unit SQ HS 09/26/20 mL) subcutaneous pen (Basaglar KwikPen U-100 Insulin) metoprolol tartrate 50 mg tablet 75 mg PO BID 09/26/20 spironolactone 100 mg tablet 50 mg PO BID 09/26/20 Supervising Physician Co-Signing Physician Notes Patient seen and examined, chart reviewed, case discussed with Dr. Ku and I agree with his assessment and plan as above. Briefly, patient is a 55yo female [facility] history of DM, HLP, paroxysmal atrial flutter presenting with dizziness, nausea, vomiting, po intolerance x 4-5 days. Patient takes Ca and Vitamin D supplementation - has had elevated Ca in the past thought to be secondary to supplementation On exam she is afebrile, HD stable, NAD Skin - intact, no rash HEENT - NC/AT, PERRL, MMM, Neck supple Heart - +S1/S2, regular, no m/r/g Lungs - CTA Abd - +BS, soft, NT/ND Ext - warm, well perfused, no clubbing/cyanosis/edema Neuro - nonfocal Labs and images reviewed. Hgb=16.1 - increased from baseline WBC=11.69 Ca=14.5 ICal= 1.59 Albumin=4.1 BUN=27, Cr=1.56 Assessment/Plan - Hypercalcemia - possibly etiology of patient's nausea/vomiting/po intolerance and dehydration - hemoconcentrated on labs with elevated BUN and Cr from baseline. Ddx to include hyperparathyroidism, over- supplementation, Vitamin D intoxication, malignancy -Check PTH and Vitamin D levels, PTHrP if above workup is unrevealing -Hold Ca supplementation -Remainder of plan as above Resident Activity Tracking Resident Involvement: Resident Care Provided Care Provided: Adult [facility]
[2020-09-26] MEDS ORDERED: POTASSIUM CHLORIDE 20 MEQ in SODIUM CHLORIDE 0.9% 1000ML 1,000 ML IV SCH (20:08)
[2020-09-26] MEDS ORDERED: POTASSIUM CHLORIDE 10 MEQ TABCR PO STA (20:08)
[2020-09-26] MEDS ORDERED: POTASSIUM CHLORIDE 10 MEQ / 100ML WTR IV ONE (20:18)
[2020-09-26] MEDS ORDERED: DEXTROSE 50% 50 ML SYRINGE IV PRN (22:07)
[2020-09-26] MEDS ORDERED: NON-FORMULARY MEDICATION (Ondansetron Hcl 8 mg tablet) PO PRN (22:07)
[2020-09-26] MEDS ORDERED: ONDANSETRON INJ 2 MG/ML 2 ML VIAL IV PRN (22:07)
[2020-09-26] MEDS ORDERED: ONDANSETRON 4 MG OD TAB PO PRN (22:07)
[2020-09-26] MEDS ORDERED: GLUCOSE 10 TABS/TUBE PO PRN (22:07)
[2020-09-26] MEDS ORDERED: LORazepam 0.5 MG TAB PO PRN (22:07)
[2020-09-26] MEDS ORDERED: LEVALBUTEROL TARTRATE 15 GM HFA.AER.AD INH PRN (22:07)
[2020-09-26] MEDS ORDERED: GLUCAGON FOR INJ 1 MG VIAL SQ PRN (22:07)
[2020-09-26] MEDS ORDERED: SUMAtriptan succinate 100 MG TAB PO PRN (22:07)
[2020-09-26] MEDS ORDERED: MAGNESIUM HYDROXIDE SUSP 30 ML UDC PO PRN (22:07)
[2020-09-26] MEDS ORDERED: ALUMINUM/MAGNESIUM SUSP 30 ML UDC PO PRN (22:07)
[2020-09-26] MEDS ORDERED: GLUCOSE 40% GEL 15 GM TUBE PO PRN (22:07)
[2020-09-26] MEDS ORDERED: NITROGLYCERIN SL 0.4 MG/TAB TAB SL PRN (22:07)
[2020-09-26] MEDS ORDERED: CARBOHYDRATES FOR HYPOGLYCEMIA PO PRN (22:07)
[2020-09-26] MEDS ORDERED: MoRPHine SULFATE 2 MG/ML CARP IV PRN (22:07)
[2020-09-26] MEDS ORDERED: FLUTICASONE PROPIONATE NA SPR 16 GM BTL PRN (22:07)
[2020-09-26] MEDS ORDERED: POLYETHYLENE (MIRALAX) 17 GM PACK PO PRN (22:07)
[2020-09-26] MEDS: INSULIN GLARGINE SOLOSTAR 100 UNITS/ML 3 ML PEN SQ SCH (23:30)
[2020-09-26] MEDS: MONTELUKAST SODIUM 10 MG TABLET PO SCH (23:32)
[2020-09-26] MEDS: SPIRONOLACTONE 25 MG TAB PO SCH (23:33)
[2020-09-26] MEDS: buPROPion SR 100 MG TABCR PO SCH (23:33)
[2020-09-26] MEDS: METOPROLOL TARTRATE 25 MG TAB PO SCH (23:33)
[2020-09-26] MEDS: INSULIN ASPART 100 UNITS/ML 3 ML PEN SC SCH (23:35)
[2020-09-27 00:25] LABS: Appearance Urine Cloudy (Clear); Bacteria Urine Automated 2+ (Negative); Bilirubin Urine Negative (Negative); Blood Urine Negative (Negative); Color Urine Yellow; Epithelial Cell Urine Auto >30 /lpf (0-5); Glucose Urine UA Negative (Negative); Ketones Urine Negative (Negative); Leukocyte Esterase Urine 2+ (Negative); Nitrite Urine Negative (Negative); Protein Urine Trace (Negative); Specific Gravity Urine 1.018 (1.000-1.030); Urobilinogen Urine Negative (Negative); pH Urine 5.5 (4.5-7.5)
[2020-09-27] MEDS: NSS + 20MEQ KCL 20 MEQ/1,000 ML BAG IV SCH ×2 (00:25→10:10)
[2020-09-27] MEDS: NYSTATIN SUSP 500,000 U/5 ML UDC BUCCAL SCH ×5 (00:25→20:41)
[2020-09-27] MEDS: DOCUSATE SODIUM 100 MG CAP PO SCH ×3 (00:25→20:43)
[2020-09-27 00:41] LABS: Calcium Oxalate Crystals Urine Present (None Prsent); RBC Urine Automated 0-4 /hpf (0-4)
--- NOTE | 2020-09-27 03:07 | Billing Data ---
Date of Service September 26, 2020 Coding Level of Care Code 13285 Initial Inpt Care Lvl 3
--- NOTE | 2020-09-27 08:15 | Hospitalist Progress Note ---
Date of Service September 27, 2020 Assessment & Plan (1) Serum calcium elevated: Plan: Rosalie Mccormack is a 55-year-old female with past medical history significant for type 2 diabetes, anxiety, depression, hyperlipidemia, paroxysmal atrial flutter, asthma, and recent diagnosis of thrush; who presents for concerns of 4 to 5 days of dizziness with n/v inability to tolerate PO --Hx kidney stones and had required ESWL with Urology last August 18 to vitamin D intoxication from supplementation Calcium 14.5 on admission with ionized Ca 1.59 Vitamin D elevated 146.5 and PTH appropriately low <6 Patient had been taking calcium carbonate 600mg BID and Cholecalciferol 150mcg BID --> THESE HAVE BEEN HELD AND TO BE DISCONTINUED AT DISCHARGE Also with MATEO with Cr 1.56 on admission Renal US with possible calculus within proximal aspect of the left ureter with mild fullness of the left collecting system. Multiple large calculi were seen within left renal pelvis during prior CT of abdomen and pelvis. Please correlate above-mentioned findings with symptoms of the left flank pain Urology consulted given hx stones -- appreciate assistance CTAP with nonobstructing bilateral nephrolithiasis. No ureteral calculi or hydronephrosis Ca improved to 11.2 on repeat Cont on IVF but will change from NSS +20K @ 100cc/hr to NSS @ 125cc/hr as she is also getting 40mmol Kphos for Phos 1.1 this morning (was paused by RN while getting Kphos but that will not be completed until this evening and asked RN to obtain second site) Continue to monitor labs (2) Acute kidney injury: Plan: See above Cr essentially unchanged, IVF increased as above Lasix on hold given MATEO but once MATEO resolved would resume to held excretion of Ca BMP in AM (3) Asthma: Plan: transition home regimen to hospital formulary continue usual montelukast 10mg daily Also with thrust and to continue nystatin at this time -- no obvious thrush appreciated at this time (says deep) however she does endorse dysphagia to solid/dry foods requiring water with all meals of that nature speech consulted ?Gi if needed stable on room air (4) Hypertension: Plan: and HLD/pAfib (Hx of, with RVR, causing LV systolic dysfunction. LV function improved with resolution of a-flutter with cardioversion in 2009) follows with Dr. Powell Statin intolerant Continue metoprolol tartrate 75mg BID, spironolactone 50mg BID (5) Type 2 diabetes mellitus with insulin therapy: Plan: Most recent A1c 6.0 Hold home regimen -- glargine 60u HS ISS BSGs AC/HS Sugars acceptable Continue to monitor (6) Statin intolerance: Plan: noted (7) Fatty liver: Plan: noted (8) Anxiety and depression: Plan: continue home bupropion, fluoxetine lorazepam prn DVT Proph -- Venous Dopplers ordered for reported swelling/pain and family hx clots of unknown origin Added Heparin SQ (tolerated heparin in past after having her son without issue) Dispo: continued inpatient stay Admission and Anticipated Discharge Date Admission Date: September 26, 2020 Supervising Physician Co-Signing Physician Notes PA Supervision Note: I did not personally see or examine the patient today, but I verified all patel points of CLARE Blackman's assessment and plan with the following exceptions/additions: None Subjective Patient evaluated this afternoon. Discussed previous history of stones and patient admits to lithotripsy last August. Renal US this morning with evidence of b/l stones but no obstruction, confirmed on CT. She had been taking Vit D and calcium supplementation twice daily and discussed that labs indicate that overtreatment causing hypercalcium and subsequent stones. She notes previous flank pain but is unsure which side due to chronic low back pain ever since having her R hip done. She does have leg cramping and notes father with history of blood clots without known cause. Will obtain venous dopplers, place on Heparin SQ while inpatient for prevention. Appears she may have a thomas's cyst to R knee which could explain symptoms to that side. She does note that her legs were swollen and tight last week. No abdominal pain but more cramping, which has improved. No further nausea or vomiting. 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 Hx thrush and was on swish/swallow by Dr. Powell from middle August to beginning of September and once stopped it came back. Issues with dysphagia to dry/solid foods such as chicken and discussed that speech may be able to do imaging for eval once cleared. Questions/concerns addressed at this time. Review of Systems Review of Systems: All systems reviewed & are unremarkable except as noted in HPI & below Physical Exam Constitutional: well developed, well nourished and + obese; no acute distress and not ill appearing Eyes: + anicteric sclerae; no eyelid abnormality ENMT: Ears: no external ear abnormality Nose: no external nose abnormality Neck: normal visual inspection and trachea midline Respiratory: normal respiratory effort and able to speak in complete sentences; no respiratory distress and no audible wheezes Cardiovascular: Extremities: no edema Gastrointestinal (Abdomen): Inspection/Auscultation: abdomen normal to inspection; abdomen not distended Percussion/Palpation: abdomen soft; abdomen nontender and no guarding Musculoskeletal: no cyanosis or clubbing, extremities motor strength 5/5 appears to have thomas's cyst posterior R knee, minimal tenderness to palpation b/l LE Skin: No visible rashes, lesions, or wounds noted. Neurologic: moves all extremities and awake Psychiatric: Orientation: alert, oriented x 3 and cooperative Affect: euthymic affect Genitourinary: no CVA tenderness Results & Data Results & Data ([facility]) Vital Signs (Past 12 Hours) Vital Signs Temp Pulse Pulse Resp BP BP Pulse Ox 09/27/20 07:38 36.9 C 69 18 123/78 95 09/27/20 03:08 36.6 C 76 18 110/73 94 09/26/20 22:14 37.1 C 88 20 133/80 96 09/26/20 21:42 85 20 125/66 95 Laboratory Results 09/27/20 09/27/20 09/27/20 Range/Units 15:12 15:12 11:42 WBC (4.8-10.8) K/uL RBC (4.2-5.4) M/uL Hgb (12.0-16.0) g/dL Hct (37-47) % MCV (80-100) fL MCH (25-34) pg MCHC (32-36) g/dL RDW Std Deviation (36.4-46.3) fL RDW Coeff of [place] (11.5-14.5) % Plt Count (130-400) K/uL MPV (7.4-10.4) fL Immature Gran % (Auto) % Neut % (Auto) % Lymph % (Auto) % [place] % (Auto) % Eos % (Auto) % Baso % (Auto) % Neut # (Auto) (1.4-6.5) K/uL Lymph # (Auto) (1.2-3.4) K/uL [place] # (Auto) (0.11-0.59) K/uL Eos # (Auto) (0-0.5) K/uL Baso # (Auto) (0-0.2) K/uL Immature Gran # (Auto) (0.00-0.02) K/uL PT (9.0-12.0) Seconds INR (0.9-1.1) Sodium 138 (136-145) mmol/L Potassium 3.8 (3.5-5.1) mmol/L Chloride 106 (98-107) mmol/L Carbon Dioxide 27 (21-32) mmol/L Anion Gap 5.0 (3-11) BUN 28 H (7-18) mg/dl Creatinine 1.55 H (0.6-1.2) mg/dl Est Cr Clr Drug Dosing 54.8 ml/min Est GFR ( Amer) 43.5 ml/min Est GFR (Non-Af Amer) 37.6 ml/min BUN/Creatinine Ratio 17.7 (10-20) Glucose 105 H (70-99) mg/dl POC Glucose 102 H (70-99) mg/dl Estimat Average Glucose mg/dl Hemoglobin A1c (4.5-5.6) % Calcium 11.2 H (8.5-10.1) mg/dl Ionized Calcium (1.12-1.32) mmol/L Phosphorus 2.0 L Cancelled (2.5-4.9) mg/dl Magnesium (1.8-2.4) mg/dl Total Bilirubin (0.2-1) mg/dl AST (15-37) U/L ALT (12-78) U/L Alkaline Phosphatase (45-117) U/L Total Protein (6.4-8.2) gm/dl Albumin (3.4-5.0) gm/dl Globulin (2.5-4.0) gm/dl Albumin/Globulin Ratio (0.9-2) Lipase (73-393) U/L 25-OH Vitamin D Total (30-100) ng/ml Vit D 1,25-Dihyd Total 1,25 Dihydroxy Vit D2 1,25 Dihydroxy Vit D3 PTH Intact (18.4-80.1) pg/ml Urine Color Urine Appearance (Clear) Urine pH (4.5-7.5) Ur Specific [place] (1.000-1.030) Urine Protein (Negative) Urine Glucose (UA) (Negative) Urine Ketones (Negative) Urine Blood (Negative) Urine Nitrite (Negative) Urine Bilirubin (Negative) Urine Urobilinogen (Negative) Ur Leukocyte Esterase (Negative) Urine WBC (Auto) (0-5) /hpf Urine RBC (Auto) (0-4) /hpf U Hyaline Cast (Auto) (0-5) /lpf U Epithel Cells (Auto) (0-5) /lpf Urine Bacteria (Auto) (Negative) Urine Crystals Calcium Oxalate Crystal (None Prsent) COVID-19 Eval Order SARS-CoV-2 (PCR) (Negative) 09/27/20 09/27/20 09/27/20 Range/Units 08:33 08:33 08:33 WBC (4.8-10.8) K/uL RBC (4.2-5.4) M/uL Hgb (12.0-16.0) g/dL Hct (37-47) % MCV (80-100) fL MCH (25-34) pg MCHC (32-36) g/dL RDW Std Deviation (36.4-46.3) fL RDW Coeff of [place] (11.5-14.5) % Plt Count (130-400) K/uL MPV (7.4-10.4) fL Immature Gran % (Auto) % Neut % (Auto) % Lymph % (Auto) % [place] % (Auto) % Eos % (Auto) % Baso % (Auto) % Neut # (Auto) (1.4-6.5) K/uL Lymph # (Auto) (1.2-3.4) K/uL [place] # (Auto) (0.11-0.59) K/uL Eos # (Auto) (0-0.5) K/uL Baso # (Auto) (0-0.2) K/uL Immature Gran # (Auto) (0.00-0.02) K/uL PT (9.0-12.0) Seconds INR (0.9-1.1) Sodium (136-145) mmol/L Potassium (3.5-5.1) mmol/L Chloride (98-107) mmol/L Carbon Dioxide (21-32) mmol/L Anion Gap (3-11) BUN (7-18) mg/dl Creatinine (0.6-1.2) mg/dl Est Cr Clr Drug Dosing ml/min Est GFR ( Amer) ml/min Est GFR (Non-Af Amer) ml/min BUN/Creatinine Ratio (10-20) Glucose (70-99) mg/dl POC Glucose (70-99) mg/dl Estimat Average Glucose mg/dl Hemoglobin A1c (4.5-5.6) % Calcium (8.5-10.1) mg/dl Ionized Calcium (1.12-1.32) mmol/L Phosphorus (2.5-4.9) mg/dl Magnesium 2.0 (1.8-2.4) mg/dl Total Bilirubin (0.2-1) mg/dl AST (15-37) U/L ALT (12-78) U/L Alkaline Phosphatase (45-117) U/L Total Protein (6.4-8.2) gm/dl Albumin (3.4-5.0) gm/dl Globulin (2.5-4.0) gm/dl Albumin/Globulin Ratio (0.9-2) Lipase (73-393) U/L 25-OH Vitamin D Total 146.5 H (30-100) ng/ml Vit D 1,25-Dihyd Total Pending 1,25 Dihydroxy Vit D2 Pending 1,25 Dihydroxy Vit D3 Pending PTH Intact (18.4-80.1) pg/ml Urine Color Urine Appearance (Clear) Urine pH (4.5-7.5) Ur Specific [place] (1.000-1.030) Urine Protein (Negative) Urine Glucose (UA) (Negative) Urine Ketones (Negative) Urine Blood (Negative) Urine Nitrite (Negative) Urine Bilirubin (Negative) Urine Urobilinogen (Negative) Ur Leukocyte Esterase (Negative) Urine WBC (Auto) (0-5) /hpf Urine RBC (Auto) (0-4) /hpf U Hyaline Cast (Auto) (0-5) /lpf U Epithel Cells (Auto) (0-5) /lpf Urine Bacteria (Auto) (Negative) Urine Crystals Calcium Oxalate Crystal (None Prsent) COVID-19 Eval Order SARS-CoV-2 (PCR) (Negative) 09/27/20 09/27/20 09/27/20 Range/Units 08:33 08:33 08:33 WBC 10.85 H (4.8-10.8) K/uL RBC 4.42 (4.2-5.4) M/uL Hgb 13.3 (12.0-16.0) g/dL Hct 40.4 (37-47) % MCV 91.4 (80-100) fL MCH 30.1 (25-34) pg MCHC 32.9 (32-36) g/dL RDW Std Deviation 48.2 H (36.4-46.3) fL RDW Coeff of [place] 14.4 (11.5-14.5) % Plt Count 223 (130-400) K/uL MPV 9.6 (7.4-10.4) fL Immature Gran % (Auto) 0.9 % Neut % (Auto) 46.2 % Lymph % (Auto) 39.3 % [place] % (Auto) 8.4 % Eos % (Auto) 4.9 % Baso % (Auto) 0.3 % Neut # (Auto) 5.02 (1.4-6.5) K/uL Lymph # (Auto) 4.26 H (1.2-3.4) K/uL [place] # (Auto) 0.91 H (0.11-0.59) K/uL Eos # (Auto) 0.53 H (0-0.5) K/uL Baso # (Auto) 0.03 (0-0.2) K/uL Immature Gran # (Auto) 0.10 H (0.00-0.02) K/uL PT (9.0-12.0) Seconds INR (0.9-1.1) Sodium 137 (136-145) mmol/L Potassium 3.6 (3.5-5.1) mmol/L Chloride 104 (98-107) mmol/L Carbon Dioxide 28 (21-32) mmol/L Anion Gap 5.0 (3-11) BUN 28 H (7-18) mg/dl Creatinine 1.48 H (0.6-1.2) mg/dl Est Cr Clr Drug Dosing 57.4 ml/min Est GFR ( Amer) 46.0 ml/min Est GFR (Non-Af Amer) 39.7 ml/min BUN/Creatinine Ratio 18.8 (10-20) Glucose 136 H (70-99) mg/dl POC Glucose (70-99) mg/dl Estimat Average Glucose 134 mg/dl Hemoglobin A1c 6.3 H (4.5-5.6) % Calcium 11.9 H D (8.5-10.1) mg/dl Ionized Calcium (1.12-1.32) mmol/L Phosphorus 1.1 L* (2.5-4.9) mg/dl Magnesium (1.8-2.4) mg/dl Total Bilirubin (0.2-1) mg/dl AST (15-37) U/L ALT (12-78) U/L Alkaline Phosphatase (45-117) U/L Total Protein (6.4-8.2) gm/dl Albumin (3.4-5.0) gm/dl Globulin (2.5-4.0) gm/dl Albumin/Globulin Ratio (0.9-2) Lipase (73-393) U/L 25-OH Vitamin D Total (30-100) ng/ml Vit D 1,25-Dihyd Total 1,25 Dihydroxy Vit D2 1,25 Dihydroxy Vit D3 PTH Intact (18.4-80.1) pg/ml Urine Color Urine Appearance (Clear) Urine pH (4.5-7.5) Ur Specific [place] (1.000-1.030) Urine Protein (Negative) Urine Glucose (UA) (Negative) Urine Ketones (Negative) Urine Blood (Negative) Urine Nitrite (Negative) Urine Bilirubin (Negative) Urine Urobilinogen (Negative) Ur Leukocyte Esterase (Negative) Urine WBC (Auto) (0-5) /hpf Urine RBC (Auto) (0-4) /hpf U Hyaline Cast (Auto) (0-5) /lpf U Epithel Cells (Auto) (0-5) /lpf Urine Bacteria (Auto) (Negative) Urine Crystals Calcium Oxalate Crystal (None Prsent) COVID-19 Eval Order SARS-CoV-2 (PCR) (Negative) 09/27/20 09/26/20 09/26/20 Range/Units 07:54 23:50 22:44 WBC (4.8-10.8) K/uL RBC (4.2-5.4) M/uL Hgb (12.0-16.0) g/dL Hct (37-47) % MCV (80-100) fL MCH (25-34) pg MCHC (32-36) g/dL RDW Std Deviation (36.4-46.3) fL RDW Coeff of [place] (11.5-14.5) % Plt Count (130-400) K/uL MPV (7.4-10.4) fL Immature Gran % (Auto) % Neut % (Auto) % Lymph % (Auto) % [place] % (Auto) % Eos % (Auto) % Baso % (Auto) % Neut # (Auto) (1.4-6.5) K/uL Lymph # (Auto) (1.2-3.4) K/uL [place] # (Auto) (0.11-0.59) K/uL Eos # (Auto) (0-0.5) K/uL Baso # (Auto) (0-0.2) K/uL Immature Gran # (Auto) (0.00-0.02) K/uL PT (9.0-12.0) Seconds INR (0.9-1.1) Sodium (136-145) mmol/L Potassium (3.5-5.1) mmol/L Chloride (98-107) mmol/L Carbon Dioxide (21-32) mmol/L Anion Gap (3-11) BUN (7-18) mg/dl Creatinine (0.6-1.2) mg/dl Est Cr Clr Drug Dosing ml/min Est GFR ( Amer) ml/min Est GFR (Non-Af Amer) ml/min BUN/Creatinine Ratio (10-20) Glucose (70-99) mg/dl POC Glucose 91 85 (70-99) mg/dl Estimat Average Glucose mg/dl Hemoglobin A1c (4.5-5.6) % Calcium (8.5-10.1) mg/dl Ionized Calcium (1.12-1.32) mmol/L Phosphorus (2.5-4.9) mg/dl Magnesium (1.8-2.4) mg/dl Total Bilirubin (0.2-1) mg/dl AST (15-37) U/L ALT (12-78) U/L Alkaline Phosphatase (45-117) U/L Total Protein (6.4-8.2) gm/dl Albumin (3.4-5.0) gm/dl Globulin (2.5-4.0) gm/dl Albumin/Globulin Ratio (0.9-2) Lipase (73-393) U/L 25-OH Vitamin D Total (30-100) ng/ml Vit D 1,25-Dihyd Total 1,25 Dihydroxy Vit D2 1,25 Dihydroxy Vit D3 PTH Intact (18.4-80.1) pg/ml Urine Color Yellow Urine Appearance Cloudy A (Clear) Urine pH 5.5 (4.5-7.5) Ur Specific [place] 1.018 (1.000-1.030) Urine Protein Trace H (Negative) Urine Glucose (UA) Negative (Negative) Urine Ketones Negative (Negative) Urine Blood Negative (Negative) Urine Nitrite Negative (Negative) Urine Bilirubin Negative (Negative) Urine Urobilinogen Negative (Negative) Ur Leukocyte Esterase 2+ H (Negative) Urine WBC (Auto) 10-30 H (0-5) /hpf Urine RBC (Auto) 0-4 (0-4) /hpf U Hyaline Cast (Auto) 5-10 H (0-5) /lpf U Epithel Cells (Auto) >30 H (0-5) /lpf Urine Bacteria (Auto) 2+ H (Negative) Urine Crystals Not Reportable Calcium Oxalate Crystal Present A (None Prsent) COVID-19 Eval Order SARS-CoV-2 (PCR) (Negative) 09/26/20 09/26/20 09/26/20 Range/Units 21:09 19:50 19:47 WBC (4.8-10.8) K/uL RBC (4.2-5.4) M/uL Hgb (12.0-16.0) g/dL Hct (37-47) % MCV (80-100) fL MCH (25-34) pg MCHC (32-36) g/dL RDW Std Deviation (36.4-46.3) fL RDW Coeff of [place] (11.5-14.5) % Plt Count (130-400) K/uL MPV (7.4-10.4) fL Immature Gran % (Auto) % Neut % (Auto) % Lymph % (Auto) % [place] % (Auto) % Eos % (Auto) % Baso % (Auto) % Neut # (Auto) (1.4-6.5) K/uL Lymph # (Auto) (1.2-3.4) K/uL [place] # (Auto) (0.11-0.59) K/uL Eos # (Auto) (0-0.5) K/uL Baso # (Auto) (0-0.2) K/uL Immature Gran # (Auto) (0.00-0.02) K/uL PT (9.0-12.0) Seconds INR (0.9-1.1) Sodium (136-145) mmol/L Potassium (3.5-5.1) mmol/L Chloride (98-107) mmol/L Carbon Dioxide (21-32) mmol/L Anion Gap (3-11) BUN (7-18) mg/dl Creatinine (0.6-1.2) mg/dl Est Cr Clr Drug Dosing ml/min Est GFR ( Amer) ml/min Est GFR (Non-Af Amer) ml/min BUN/Creatinine Ratio (10-20) Glucose (70-99) mg/dl POC Glucose (70-99) mg/dl Estimat Average Glucose mg/dl Hemoglobin A1c (4.5-5.6) % Calcium (8.5-10.1) mg/dl Ionized Calcium 1.59 H* (1.12-1.32) mmol/L Phosphorus (2.5-4.9) mg/dl Magnesium (1.8-2.4) mg/dl Total Bilirubin (0.2-1) mg/dl AST (15-37) U/L ALT (12-78) U/L Alkaline Phosphatase (45-117) U/L Total Protein (6.4-8.2) gm/dl Albumin (3.4-5.0) gm/dl Globulin (2.5-4.0) gm/dl Albumin/Globulin Ratio (0.9-2) Lipase (73-393) U/L 25-OH Vitamin D Total (30-100) ng/ml Vit D 1,25-Dihyd Total 1,25 Dihydroxy Vit D2 1,25 Dihydroxy Vit D3 PTH Intact < 6.3 L (18.4-80.1) pg/ml Urine Color Urine Appearance (Clear) Urine pH (4.5-7.5) Ur Specific [place] (1.000-1.030) Urine Protein (Negative) Urine Glucose (UA) (Negative) Urine Ketones (Negative) Urine Blood (Negative) Urine Nitrite (Negative) Urine Bilirubin (Negative) Urine Urobilinogen (Negative) Ur Leukocyte Esterase (Negative) Urine WBC (Auto) (0-5) /hpf Urine RBC (Auto) (0-4) /hpf U Hyaline Cast (Auto) (0-5) /lpf U Epithel Cells (Auto) (0-5) /lpf Urine Bacteria (Auto) (Negative) Urine Crystals Calcium Oxalate Crystal (None Prsent) COVID-19 Eval Order SARS-CoV-2 (PCR) NEGATIVE (Negative) 09/26/20 09/26/20 09/26/20 Range/Units 19:47 17:25 17:25 WBC (4.8-10.8) K/uL RBC (4.2-5.4) M/uL Hgb (12.0-16.0) g/dL Hct (37-47) % MCV (80-100) fL MCH (25-34) pg MCHC (32-36) g/dL RDW Std Deviation (36.4-46.3) fL RDW Coeff of [place] (11.5-14.5) % Plt Count (130-400) K/uL MPV (7.4-10.4) fL Immature Gran % (Auto) % Neut % (Auto) % Lymph % (Auto) % [place] % (Auto) % Eos % (Auto) % Baso % (Auto) % Neut # (Auto) (1.4-6.5) K/uL Lymph # (Auto) (1.2-3.4) K/uL [place] # (Auto) (0.11-0.59) K/uL Eos # (Auto) (0-0.5) K/uL Baso # (Auto) (0-0.2) K/uL Immature Gran # (Auto) (0.00-0.02) K/uL PT 10.3 (9.0-12.0) Seconds INR 1.0 (0.9-1.1) Sodium 136 (136-145) mmol/L Potassium 3.2 L (3.5-5.1) mmol/L Chloride 98 (98-107) mmol/L Carbon Dioxide 29 (21-32) mmol/L Anion Gap 9.0 (3-11) BUN 27 H (7-18) mg/dl Creatinine 1.56 H (0.6-1.2) mg/dl Est Cr Clr Drug Dosing 53.9 ml/min Est GFR ( Amer) 43.2 ml/min Est GFR (Non-Af Amer) 37.3 ml/min BUN/Creatinine Ratio 17.2 (10-20) Glucose 125 H (70-99) mg/dl POC Glucose (70-99) mg/dl Estimat Average Glucose mg/dl Hemoglobin A1c (4.5-5.6) % Calcium 14.5 H* (8.5-10.1) mg/dl Ionized Calcium (1.12-1.32) mmol/L Phosphorus (2.5-4.9) mg/dl Magnesium (1.8-2.4) mg/dl Total Bilirubin 0.5 (0.2-1) mg/dl AST 17 (15-37) U/L ALT 32 (12-78) U/L Alkaline Phosphatase 73 (45-117) U/L Total Protein 8.4 H (6.4-8.2) gm/dl Albumin 4.1 (3.4-5.0) gm/dl Globulin 4.3 H (2.5-4.0) gm/dl Albumin/Globulin Ratio 1.0 (0.9-2) Lipase 118 (73-393) U/L 25-OH Vitamin D Total (30-100) ng/ml Vit D 1,25-Dihyd Total 1,25 Dihydroxy Vit D2 1,25 Dihydroxy Vit D3 PTH Intact (18.4-80.1) pg/ml Urine Color Urine Appearance (Clear) Urine pH (4.5-7.5) Ur Specific [place] (1.000-1.030) Urine Protein (Negative) Urine Glucose (UA) (Negative) Urine Ketones (Negative) Urine Blood (Negative) Urine Nitrite (Negative) Urine Bilirubin (Negative) Urine Urobilinogen (Negative) Ur Leukocyte Esterase (Negative) Urine WBC (Auto) (0-5) /hpf Urine RBC (Auto) (0-4) /hpf U Hyaline Cast (Auto) (0-5) /lpf U Epithel Cells (Auto) (0-5) /lpf Urine Bacteria (Auto) (Negative) Urine Crystals Calcium Oxalate Crystal (None Prsent) COVID-19 Eval Order Covid19 at [facility] SARS-CoV-2 (PCR) (Negative) 09/26/20 Range/Units 17:25 WBC 11.69 H (4.8-10.8) K/uL RBC 5.22 (4.2-5.4) M/uL Hgb 16.1 H (12.0-16.0) g/dL Hct 47.0 (37-47) % MCV 90.0 (80-100) fL MCH 30.8 (25-34) pg MCHC 34.3 (32-36) g/dL RDW Std Deviation 46.0 (36.4-46.3) fL RDW Coeff of [place] 14.0 (11.5-14.5) % Plt Count 276 (130-400) K/uL MPV 9.9 (7.4-10.4) fL Immature Gran % (Auto) 0.6 % Neut % (Auto) 61.1 % Lymph % (Auto) 22.7 % [place] % (Auto) 11.5 % Eos % (Auto) 3.8 % Baso % (Auto) 0.3 % Neut # (Auto) 7.16 H (1.4-6.5) K/uL Lymph # (Auto) 2.65 (1.2-3.4) K/uL [place] # (Auto) 1.34 H (0.11-0.59) K/uL Eos # (Auto) 0.44 (0-0.5) K/uL Baso # (Auto) 0.03 (0-0.2) K/uL Immature Gran # (Auto) 0.07 H (0.00-0.02) K/uL PT (9.0-12.0) Seconds INR (0.9-1.1) Sodium (136-145) mmol/L Potassium (3.5-5.1) mmol/L Chloride (98-107) mmol/L Carbon Dioxide (21-32) mmol/L Anion Gap (3-11) BUN (7-18) mg/dl Creatinine (0.6-1.2) mg/dl Est Cr Clr Drug Dosing ml/min Est GFR ( Amer) ml/min Est GFR (Non-Af Amer) ml/min BUN/Creatinine Ratio (10-20) Glucose (70-99) mg/dl POC Glucose (70-99) mg/dl Estimat Average Glucose mg/dl Hemoglobin A1c (4.5-5.6) % Calcium (8.5-10.1) mg/dl Ionized Calcium (1.12-1.32) mmol/L Phosphorus (2.5-4.9) mg/dl Magnesium (1.8-2.4) mg/dl Total Bilirubin (0.2-1) mg/dl AST (15-37) U/L ALT (12-78) U/L Alkaline Phosphatase (45-117) U/L Total Protein (6.4-8.2) gm/dl Albumin (3.4-5.0) gm/dl Globulin (2.5-4.0) gm/dl Albumin/Globulin Ratio (0.9-2) Lipase (73-393) U/L 25-OH Vitamin D Total (30-100) ng/ml Vit D 1,25-Dihyd Total 1,25 Dihydroxy Vit D2 1,25 Dihydroxy Vit D3 PTH Intact (18.4-80.1) pg/ml Urine Color Urine Appearance (Clear) Urine pH (4.5-7.5) Ur Specific [place] (1.000-1.030) Urine Protein (Negative) Urine Glucose (UA) (Negative) Urine Ketones (Negative) Urine Blood (Negative) Urine Nitrite (Negative) Urine Bilirubin (Negative) Urine Urobilinogen (Negative) Ur Leukocyte Esterase (Negative) Urine WBC (Auto) (0-5) /hpf Urine RBC (Auto) (0-4) /hpf U Hyaline Cast (Auto) (0-5) /lpf U Epithel Cells (Auto) (0-5) /lpf Urine Bacteria (Auto) (Negative) Urine Crystals Calcium Oxalate Crystal (None Prsent) COVID-19 Eval Order SARS-CoV-2 (PCR) (Negative) Diagnostic Findings Head CT 09/26/20 16:55 CT head/brain wo con CLINICAL HISTORY: [facility] COMPARISON STUDY: September 16, 2018. TECHNIQUE: Axial CT of the brain is performed from the vertex to the skull base. IV contrast was not administered for this examination. A dose lowering technique was utilized adhering to the principles of ALARA. CT DOSE: 537.48 mGy.cm FINDINGS: No intra or extra-axial mass lesions are visualized. There is no CT evidence of acute cortical infarction. There is no evidence of midline shift. There is no acute hemorrhage. No acute depressed calvarial fractures are visualized. There is no evidence of pathologic ventricular dilatation. There is no evidence of acute sinusitis IMPRESSION: No acute intracranial hemorrhage, no midline shift or space occupying lesions. ACT 112: Negative or not required by law. The above report was generated using voice recognition software. It may contain grammatical, syntax or spelling errors. Electronically signed by: Evelyn Reyna DO 09/26/2020 7:14 PM Renal Ultrasound 09/27/20 08:00 EXAMINATION: RENAL ULTRASOUND CLINICAL HISTORY: mateo, hypercalcemia, eval for stone/hydro COMPARISON STUDY: None. Correlation is made with CT of abdomen and pelvis performed on September 23, 2019. FINDINGS: The right kidney measures 12.7 cm. The left kidney measures 12.2 cm. Multiple nonobstructive calculi are seen within the right renal pelvis, largest is measuring 0.5 cm in size. No evidence of hydronephrosis on the right. There is mild fullness of the left renal pelvis without ira hydronephrosis. There is questionable hyperechoic structure within the anatomical region of the proximal left ureter measuring 1.0 cm in size and might represent ureterolithiasis. There are no renal masses. No bladder abnormalities are visualized. Bilateral ureteral jets were visualized. IMPRESSION : 1. Nonobstructive calculus within right renal pelvis 2. Possible calculus within proximal aspect of the left ureter with mild fullness of the left collecting system. Multiple large calculi were seen within left renal pelvis during prior CT of abdomen and pelvis. Please correlate above- mentioned findings with symptoms of the left flank pain. ACT 112: Negative or not required by law. The above report was generated using voice recognition software. It may contain grammatical, syntax or spelling errors. Electronically signed by: Evelyn Reyna DO 09/27/2020 9:43 AM Abdomen/Pelvis CT 09/27/20 13:[address] WITHOUT CONTRAST CT DOSE: 1524.13 mGy.cm HISTORY: Follow up study in a patient with history of renal calculi Evaluate for obstructing calculi TECHNIQUE: Multiaxial CT images of the abdomen and pelvis were performed without contrast. A dose lowering technique was utilized adhering to the principles of ALARA. COMPARISON STUDY: 09/23/2019. FINDINGS: The imaged inferior cardiac chambers are unremarkable. The unenhanced spleen, pancreas, adrenal glands and gallbladder are unremarkable. Hepatic steatosis with mild hepatomegaly. There are least 3 nonobstructing calculi of the left kidney measuring up to 7 mm. There are least 4 nonobstructing calculi of the right kidney measuring up to 7 mm. No ureteral calculi or hydronephrosis. Unremarkable urinary bladder, uterus and adnexa. There is no abdominal aortic aneurysm. No adenopathy. No bowel obstruction or bowel wall thickening. Mild fecal retention of the rectum. Mild colonic diverticulosis. No ascites or mesenteric inflammation. Normal appendix. Small fat filled lower anterior abdominal wall hernias are noted, largest of which demonstrates diastases of 5.2 x 4.7 cm. Prior ventral abdominal wall herniorrhaphy changes. No acute fracture. Degenerative changes of the spine, pelvis and hips. IMPRESSION: 1. Nonobstructing bilateral nephrolithiasis. No ureteral calculi or hydronephrosis. 2. No bowel obstruction or bowel wall thickening. Normal appendix. 3. Colonic diverticulosis. 4. Hepatomegaly with hepatic steatosis. 5. Prior ventral abdominal wall hernia repair with several fat filled ventral abdominal wall hernias. ACT 112: Negative or not required by law. The above report was generated using voice recognition software. It may contain grammatical, syntax or spelling errors. Electronically signed by: Catrachito Foote M.D. 09/27/2020 3:03 PM PG Care Time/CCT Total # of Minutes Spent Total Time Spent with Patient: Total time spent is greater than 50% in coordination of care (as documented) at patient's floor/unit and/or counseling patient: Coding Level of Care Code 44094 Subseq Hosp Care Lvl 3 Diagnoses Acute kidney injury N17.9 Serum calcium elevated E83.52 Type 2 diabetes mellitus with insulin therapy E11.9; Z79.4 Asthma J45.909 Anxiety and depression F41.9; F32.9 Statin intolerance Z78.9 Fatty liver K76.0 Hypertension I10
[2020-09-27] MEDS: METOPROLOL TARTRATE 25 MG TAB PO SCH ×2 (08:40→20:42)
[2020-09-27] MEDS: buPROPion SR 100 MG TABCR PO SCH ×2 (08:40→20:43)
[2020-09-27] MEDS: FLUoxetine HCL 20 MG CAP PO SCH (08:40)
[2020-09-27] MEDS: SPIRONOLACTONE 25 MG TAB PO SCH ×2 (08:41→20:46)
[2020-09-27] MEDS: INSULIN ASPART 100 UNITS/ML 3 ML PEN SC SCH ×4 (08:41→20:49)
[2020-09-27 08:49] LABS: Basophils # (auto) 0.03 K/uL (0-0.2); Basophils % (auto) 0.3 %; Eosinophils # (auto) 0.53 K/uL (0-0.5); Eosinophils % (auto) 4.9 %; Hematocrit (blood only) 40.4 % (37-47); Hemoglobin 13.3 g/dL (12.0-16.0); Immature Granulocytes % (auto) 0.9 %; Lymphocytes # (auto) 4.26 K/uL (1.2-3.4); Lymphocytes % (auto) 39.3 %; Mean Corpuscular Hemoglobin 30.1 pg (25-34); Mean Corpuscular Hgb Conc 32.9 g/dL (32-36); Mean Corpuscular Volume 91.4 fL (80-100); Mean Platelet Volume 9.6 fL (7.4-10.4); Monocytes # (auto) 0.91 K/uL (0.11-0.59); Monocytes % (auto) 8.4 %; Neutrophils # (auto) 5.02 K/uL (1.4-6.5); Neutrophils % (auto) 46.2 %; Platelet Count 223 K/uL (130-400); RDW Coefficient of Variation 14.4 % (11.5-14.5); RDW Standard Deviation 48.2 fL (36.4-46.3); Red Blood Count 4.42 M/uL (4.2-5.4); White Blood Count 10.85 K/uL (4.8-10.8)
[2020-09-27 09:25] LABS: BUN Creatinine Ratio 18.8 (10-20); Calcium 11.9 mg/dl (8.5-10.1); Creatinine Clr Calc Pharmacy 57.4 ml/min; Est GFR (Non-African American) 39.7 ml/min; Potassium 3.6 mmol/L (3.5-5.1)
[2020-09-27 09:34] LABS: Phosphorus 1.1 mg/dl (2.5-4.9)
[2020-09-27] MEDS ORDERED: POTASSIUM PHOS 3 MMOL/1 ML INFUSION IV STA (09:37)
--- NOTE | 2020-09-27 09:44 | Ultrasound Report ---
EXAMINATION: RENAL ULTRASOUND CLINICAL HISTORY: bob, hypercalcemia, eval for stone/hydro COMPARISON STUDY: None. Correlation is made with CT of abdomen and pelvis performed on September 22 0. FINDINGS: The right kidney measures 12.7 cm. The left kidney measures 12.2 cm. Multiple nonobstructive calculi are seen within the right renal pelvis, largest is measuring 0.5 cm i n size. No evidence of hydronephrosis on the right. There is mild fullness of the left renal pelvis without ira hydronephrosis. There is questionable h yperechoic structure within the anatomical region of the proximal left ureter measuring 1.0 cm in siz e and might represent ureterolithiasis. There are no renal masses. No bladder abnormalities are visualized. Bilateral ureteral jets were visualized. IMPRESSION : 1. Nonobstructive calculus within right renal pelvis 2. Possible calculus within proximal aspect of the left ureter with mild fullness of the left collec ting system. Multiple large calculi were seen within left renal pelvis during prior CT of abdomen and pelvis. Please correlate above-mentioned findings with symptoms of the left flank pain. ACT 112: Negative or not required by law. The above report was generated using voice recognition software. It may contain grammatical, syntax o r spelling errors. Electronically signed by: Evelny Reyna DO 09/27/2020 9:43 AM
[2020-09-27] MEDS ORDERED: POTASSIUM PHOSPHATE 40 MMOL in SODIUM CHLORIDE 0.9% 1000ML 1,000 ML IV ONE (10:00)
[2020-09-27 10:07] LABS: Estimated Average Glucose 134 mg/dl; Hemoglobin A1C 6.3 % (4.5-5.6)
--- NOTE | 2020-09-27 12:19 | Urology Consultation ---
Date of Consultation September 27, 2020 Assessment & Plan (1) Kidney stones: 55 year-old female patient admitted for dizziness with associated intractable nausea/vomiting, hypercalcemia, and MATEO. -Urology consulted for bilateral renal stones with possible left proximal ureteral calculus, noted renal ultrasound. -Patient not currently experiencing significant flank pain. -She is afebrile, non-toxic on exam. -Labs reviewed - White count and creatinine improving since admission. -Urine culture pending, treat if indicated. -Renal ultrasound reviewed - possible calculus within proximal aspect of the left ureter with mild fullness of the left collecting system. -Will obtain CT abd/pelvis without contrast for definitive stone evaluation. -Continue with supportive care and close monitoring. -Additional recommendations pending results of imaging. -Please consult our service urgently if patient develops fever >101F. -Will continue to follow while inpatient. History of Present Illness Reason for Consultation: B/l stones, n/v Requesting Physician: Ade Blackman PA-C Attending Physician: Cassidy Das MD History of Present Illness 55-year-old female, with past medical history significant for type 2 diabetes, anxiety, depression, hyperlipidemia, paroxysmal atrial flutter, asthma, recent diagnosis of thrush, and other comorbidities listed below, who presented to the emergency room with complaints of severe dizziness with associated nausea, vomiting, and inability to tolerate oral intact for the past 4-5 days. She was found to have hypercalcemia and MATEO and was admitted for further evaluation. Urology consulted for bilateral nephrolithiasis, nausea, vomiting. Patient known to [facility]. Known history of kidney stones. Has undergone surgical intervention for stones, most recently in August 2019 (left ESWL). Chart review: Afebrile. Most recent blood pressure 98/63, pulse 72 Wbc 10.85 (previously 11.69) Hgb 13.3 Creatinine 1.48 (previously 1.56) Calcium this AM 11.9 (14.5 on admission) Urinalysis +2 leukocytes, 10-30 wbc, 0-4 rbc, >30 epithelial, +2 bacteria, negative nitrates. Urine culture pending. Imaging: Renal ultrasound - IMPRESSION : 1. Nonobstructive calculus within right renal pelvis 2. Possible calculus within proximal aspect of the left ureter with mild fullness of the left collecting system. Multiple large calculi were seen within left renal pelvis during prior CT of abdomen and pelvis. Please correlate above- mentioned findings with symptoms of the left flank pain. Reviewed CT abd/pelvis, last performed in September 2019 - notable for bilateral nephrolithiasis without ureteral calculi or hydronephrosis. Patient seen and examined at bedside. She is awake, alert, comfortable, and non- toxic on exam. States she continues to have dizziness that varies in severity. Denies vomiting since admission. States her nausea has improved. Does report she has had on-going chronic lower lumbar pain. States recently she did experience episode of flank pain but cannot recall which side as this resolved. Currently denies flank pain. Reports dysuria and dark urine last week. No current dysuria. Denies hematuria. Reports intermittent urgency. Denies fevers or chills. Has been able to eat and drink today. Denies additional urologic concerns today. Allergies Allergy/AdvReac Type Severity Reaction Status Date / Time codeine Allergy Intermediate SEVERE Verified 09/26/20 17:38 [From Tylenol-Codeine #3] MIGRAINES latex Allergy Intermediate LIPS Verified 09/26/20 17:38 SWELLING pravastatin Allergy Intermediate Hives Verified 09/26/20 17:38 simvastatin Allergy Intermediate Hives Verified 09/26/20 17:38 doxycycline Allergy Mild Rash Verified 09/26/20 17:38 erythromycin base Allergy Mild RASH Verified 09/26/20 17:38 Penicillins Allergy Mild RASH Verified 09/26/20 17:38 prednisone Allergy Mild RASH Verified 09/26/20 17:38 Sulfa (Sulfonamide Allergy Mild RASH Verified 09/26/20 17:38 Antibiotics) acetaminophen Allergy Unknown Verified 09/26/20 17:38 [From Tylenol-Codeine #3] empagliflozin AdvReac Mild Increase Verified 09/26/20 17:38 [From Jardiance] yeast infections and pt reporting worsening mood hydrocodone AdvReac Mild SEVERE GASTON Verified 09/26/20 17:38 Home Medications Medication Instructions Recorded Confirmed Type fluticasone propionate 50 1 sprays INTNAS DAILY PRN 09/29/18 09/26/20 History mcg/actuation nasal spray,suspension (Allergy Relief (fluticasone)) lorazepam 0.5 mg tablet 0.5 mg PO DAILY PRN #30 tab 08/13/19 09/26/20 Rx bupropion HCl 200 mg tablet,12 hr 200 mg PO BID #180 ea 08/16/19 09/26/20 Rx sustained-release ascorbic acid (vitamin C) 1,000 mg 1 g PO BID 08/30/19 09/26/20 History tablet calcium carbonate 600 mg calcium 600 mg PO BID 08/30/19 09/26/20 History (1,500 mg) tablet (Calcium) cholecalciferol (vitamin D3) 50 150 mcg PO BID 08/30/19 09/26/20 History mcg (2,000 unit) capsule (Vitamin D3) cyanocobalamin (vitamin B-12) 2,500 mcg PO QAM 08/30/19 09/26/20 History 2,500 mcg tablet garlic 1,000 mg PO BID 08/30/19 09/26/20 History pen needle, diabetic 31 gauge x #100 ea 10/05/19 09/26/20 Rx 3/16" (BD Ultra-Fine Mini Pen Needle) lancets (Accu-Chek Fastclix Lancet #200 ea 10/13/19 09/26/20 Rx Drum) ondansetron HCl 8 mg tablet 8 mg PO Q8H PRN #30 tab 11/25/19 09/26/20 Rx sumatriptan succinate 100 mg See Rx Instructions PO .COMPLEX 11/25/19 09/26/20 Rx tablet (Imitrex) #10 tab omeprazole 20 mg capsule,delayed 20 mg PO BID #60 cap 11/29/19 09/26/20 Rx release levalbuterol tartrate 45 2 inh INH Q6H PRN #15 gm 01/26/20 09/26/20 Rx mcg/actuation aerosol inhaler (Xopenex HFA) montelukast 10 mg tablet 10 mg PO QPM #90 tab 01/26/20 09/26/20 Rx potassium chloride See Rx Instructions .ROUTE .COMPLEX 02/23/20 09/26/20 History fluoxetine 20 mg capsule 20 mg PO QAM #30 cap 04/10/20 09/26/20 Rx blood sugar diagnostic (Accu-Chek #200 ea 06/14/20 09/26/20 Rx Guide test strips) semaglutide (Ozempic) 0.5 mg SUBCUT .COMPLEX #1.5 ml 06/20/20 09/26/20 Rx diclofenac sodium 75 mg 75 mg PO BID PRN #60 tab 07/12/20 09/26/20 Rx tablet,delayed release nystatin 100,000 unit/mL oral 500,000 unit BUCCAL QID 10 Days 08/23/20 09/26/20 Rx suspension #200 ml metformin 500 mg tablet,extended 1,000 mg PO BID #360 tab 08/25/20 09/26/20 Rx release 24hr aspirin 81 mg tablet,delayed 81 mg PO QAM 09/26/20 09/26/20 History release (Aspirin Low Dose) ciclesonide 160 mcg/actuation 1 - 2 puff INHALATION QAM 09/26/20 09/26/20 History aerosol inhaler (Alvesco) furosemide 20 mg tablet (Lasix) 20 mg PO BID 09/26/20 09/26/20 History insulin glargine 100 unit/mL (3 60 unit SQ HS 09/26/20 09/26/20 History mL) subcutaneous pen (Basaglar KwikPen U-100 Insulin) metoprolol tartrate 50 mg tablet 75 mg PO BID 09/26/20 09/26/20 History spironolactone 100 mg tablet 50 mg PO BID 09/26/20 09/26/20 History Patient History Medical History Anxiety and depression Asthma Atrial flutter, paroxysmal Hx of, with RVR, causing LV systolic dysfunction. LV function improved with resolution of a-flutter with cardioversion in 2009. Chronic sinusitis Fatty liver GERD (gastroesophageal reflux disease) Grief reaction History of cardiac murmur Echo 06/2018 = trace mitral and tricuspid regurgitation Hydroureteronephrosis Hypercholesterolemia Kidney stones Left ureteral calculus Migraine headache Obesity Statin intolerance Type 2 diabetes mellitus with insulin therapy Surgical History H/O oral surgery History of cardioversion 2009 History of colonoscopy History of cystoscopy WITH STENT PLACED History of myringotomy History of tonsillectomy and adenoidectomy History of transesophageal echocardiography (DASIA) S/P section X 1 S/P hernia surgery X 2 S/P tonsillectomy S/P wisdom tooth extraction Status post laser lithotripsy of ureteral calculus Family History Aunt Colorectal cancer Grandfather (Maternal) Prostate cancer Mother , age 55 of Pseudomonas sepsis Lupus Raynaud's disease Father , age 85 Hypertension Clotting disorder Peptic ulcer disease Denies family history of Ovarian cancer Myocardial infarction Breast cancer Social History Smoking Status: Never smoker Second Hand Exposure: No; Do You Dip or Chew Tobacco: No; Hx Alcohol Use: Yes Alcohol type: wine and hard liquor Alcohol Intake Frequency Comment: Very rare use Hx Substance Use: No Preferred Language: Hungarian Communication Ability: Effective Visual Impairment: No Limitations Hearing Ability: Normal Chocolate Molder Required: No Beliefs That Will Affect Care: None marital status: Current Living Situation: Spouse current occupational status: employed 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, 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 Other Information That Helps Us Care for You: No Feels Safe at Home: No Is there a partner from a previous relationship who is making you feel unsafe now?: No Any Concerns about Your Family Situation: No Would You Like to Speak to Someone About Your Situation: No Safety Concerns: Feels Safe At This Time Childhood Exposure to Second-Hand Smoke: No Dental Care, Regularly: Yes Physical Activity Frequency: Does not Exercise Seatbelt Use: always Sunscreen Use: No Assistive Devices: Contacts and Glasses Review of Systems Constitutional: as per Subjective / HPI; no fever and no chills Eyes: no problem reported Respiratory: no cough and no dyspnea Cardiovascular: no chest pain and no edema Gastrointestinal: as per Subjective / HPI Musculoskeletal: as per Subjective / HPI Neurologic: as per Subjective / HPI and + dizziness Endocrine: no fatigue Hematologic / Lymphatic: + easy bruising; no easy bleeding Physical Exam Constitutional: well developed and well nourished; no acute distress and not ill appearing ENMT: Ears: no external ear abnormality Nose: no external nose abnormality Neck: normal visual inspection and trachea midline Respiratory: normal respiratory effort and able to speak in complete sentences; no respiratory distress and no audible wheezes Cardiovascular: Extremities: no edema Gastrointestinal (Abdomen): Inspection/Auscultation: abdomen normal to inspection; abdomen not distended Percussion/Palpation: abdomen soft; abdomen nontender and no guarding Musculoskeletal: Moves all extremities without difficulty. Skin: No visible rashes, lesions, or wounds noted. Neurologic: moves all extremities and awake Psychiatric: Orientation: alert, oriented x 3 and cooperative Affect: euthymic affect Genitourinary: no CVA tenderness Results & Data ([facility]) Vital Signs (Past 12 Hours) Vital Signs Temp Pulse Pulse Resp BP Pulse Ox 09/27/20 11:34 72 09/27/20 11:02 37.2 C 77 18 98/63 L 94 09/27/20 07:38 36.9 C 69 18 123/78 95 09/27/20 03:08 36.6 C 76 18 110/73 94 PG Care Time/CCT Total # of Minutes Spent Total Time Spent with Patient: Total time spent is greater than 50% in coordination of care (as documented) at patient's floor/unit and/or counseling patient: Coding Level of Care Code 37487 Inpt Consult Level 4 Diagnoses Kidney stones N20.0
--- NOTE | 2020-09-27 15:05 | CT Scan Report ---
ABDOMEN AND PELVIS CT WITHOUT CONTRAST CT DOSE: 1524.13 mGy.cm HISTORY: Follow up study in a patient with history of renal calculi Evaluate for obstructing calculi TECHNIQUE: Multiaxial CT images of the abdomen and pelvis were performed without contrast. A dose lo wering technique was utilized adhering to the principles of ALARA. COMPARISON STUDY: 09/23/2019. FINDINGS: The imaged inferior cardiac chambers are unremarkable. The unenhanced spleen, pancreas, adrenal gland s and gallbladder are unremarkable. Hepatic steatosis with mild hepatomegaly. There are least 3 nonob structing calculi of the left kidney measuring up to 7 mm. There are least 4 nonobstructing calculi o f the right kidney measuring up to 7 mm. No ureteral calculi or hydronephrosis. Unremarkable urinary bladder, uterus and adnexa. There is no abdominal aortic aneurysm. No adenopathy. No bowel obstruction or bowel wall thickening. Mild fecal retention of the rectum. Mild colonic diver ticulosis. No ascites or mesenteric inflammation. Normal appendix. Small fat filled lower anterior ab dominal wall hernias are noted, largest of which demonstrates diastases of 5.2 x 4.7 cm. Prior ventra l abdominal wall herniorrhaphy changes. No acute fracture. Degenerative changes of the spine, pelvis and hips. IMPRESSION: 1. Nonobstructing bilateral nephrolithiasis. No ureteral calculi or hydronephrosis. 2. No bowel obstruction or bowel wall thickening. Normal appendix. 3. Colonic diverticulosis. 4. Hepatomegaly with hepatic steatosis. 5. Prior ventral abdominal wall hernia repair with several fat filled ventral abdominal wall hernias. ACT 112: Negative or not required by law. The above report was generated using voice recognition software. It may contain grammatical, syntax o r spelling errors. Electronically signed by: Catrachito Foote M.D. 09/27/2020 3:03 PM
[2020-09-27 15:47] LABS: BUN Creatinine Ratio 17.7 (10-20); Calcium 11.2 mg/dl (8.5-10.1); Creatinine Clr Calc Pharmacy 54.8 ml/min; Est GFR (African American) 43.5 ml/min; Est GFR (Non-African American) 37.6 ml/min; Potassium 3.8 mmol/L (3.5-5.1)
[2020-09-27] MEDS: SODIUM CHLORIDE 0.9% 1000ML 1,000 ML IV SCH ×2 (16:38→23:55)
--- NOTE | 2020-09-27 17:23 | Ultrasound Report ---
ULTRASOUND BILATERAL LOWER EXTREMITY VENOUS CLINICAL HISTORY: Leg pain. COMPARISON STUDY: No priors. TECHNIQUE: Real-time, grayscale, and color Doppler sonography of the deep veins of the right and left lower extremity was performed from the inguinal crease to the calf. Compression and augmentation wer e utilized. FINDINGS: There is no sonographic evidence of deep venous thrombosis identified in the right or left lower extremity. The common femoral, superficial femoral, and popliteal veins are patent and normally compressible bilaterally. The greater saphenous vein and the profunda femoris vein at the junction w ith the common femoral vein are clear in both legs. The visualized calf veins are patent bilaterally. A minimally complex right popliteal cyst measures 5.5 x 1.0 x 2.1 cm. IMPRESSION: 1. There is no sonographic evidence of deep venous thrombosis identified in the right or left lower e xtremity. 2. Right-sided Jiménez's cyst. ACT 112: Negative or not required by law. Electronically signed by: Jasiel Cooley M.D. 09/27/2020 5:21 PM
[2020-09-27] MEDS: MONTELUKAST SODIUM 10 MG TABLET PO SCH (20:42)
[2020-09-27] MEDS: INSULIN GLARGINE SOLOSTAR 100 UNITS/ML 3 ML PEN SQ SCH (20:49)
[2020-09-27] MEDS: FAMOTIDINE 20 MG TAB PO SCH (21:38)
[2020-09-27] MEDS: HEPARIN SOD 5,000 UNIT/0.5 ML VIAL SQ SCH (21:39)
[2020-09-28] MEDS: ACETAMINOPHEN 325 MG TAB PO PRN ×2 (01:43→09:26)
[2020-09-28] MEDS: HEPARIN SOD 5,000 UNIT/0.5 ML VIAL SQ SCH ×2 (05:51→12:57)
[2020-09-28] MEDS: SODIUM CHLORIDE 0.9% 1000ML 1,000 ML IV SCH (06:48)
--- NOTE | 2020-09-28 08:01 | Hospitalist Progress Note ---
Date of Service September 28, 2020 Assessment & Plan (1) Hypercalcemia: Plan: Rosalie Mccormack is a 55-year-old female with past medical history significant for type 2 diabetes, anxiety, depression, hyperlipidemia, paroxysmal atrial flutter, asthma, and recent diagnosis of thrush; who presents for concerns of 4 to 5 days of dizziness with n/v inability to tolerate PO --Hx kidney stones and had required ESWL with Urology last August 18 to vitamin D intoxication from supplementation Calcium 14.5 on admission with ionized Ca 1.59 Vitamin D elevated 146.5 PTH appropriately low <6 Patient had been taking calcium carbonate 600mg BID and Cholecalciferol 150mcg BID --> THESE HAVE BEEN HELD AND TO BE DISCONTINUED AT DISCHARGE Also with MATEO with Cr 1.56 on admission Renal US with possible calculus within proximal aspect of the left ureter with mild fullness of the left collecting system. Multiple large calculi were seen within left renal pelvis during prior CT of abdomen and pelvis. Please correlate above-mentioned findings with symptoms of the left flank pain Urology consulted given hx stones -- appreciate assistance CTAP with nonobstructing bilateral nephrolithiasis. No ureteral calculi or hydronephrosis. Will need for outpatient follow-up regarding stone White count within normal limits has not received any antibiotics. Suspect that this elevation was secondary to nausea and vomiting She remains afebrile Calcium improved to 10.6 with ionized calcium 1.4 Kidney function improved with creatinine 1.26 today, almost back to baseline Continues normal saline but decrease to 75 cc an hour as she has been increasing oral Phos improved to 1.9 from 1.1 and will order further K-Phos replacement also treated K of 3.4 Magnesium checked due to hypokalemia and found to be low at 1.5ordered IV replacement which should also help with bowels as she has constipation likely secondary to hypercalcemia Continue to monitor labs, possible DC tomorrow if normalized (2) Vitamin D toxicity: Plan: Cause for above is overtreatment as outpatient Discontinue calcium carbonate and vitamin D supplementation but not continue discharge See above regarding treatment of her hypercalcemia (3) Acute kidney injury: Plan: See above IV fluids as above now decreased as creatinine approaching baseline currently 1.26 Continue to hold her Lasix for now with suspect this will help with decreasing her calcium once able to be resumed when creatinine back to baseline Follow BMP (4) Asthma: Plan: transition home regimen to hospital formulary continue usual montelukast 10mg daily Also with thrust and to continue nystatin at this time -- no obvious thrush appreciated at this time (says deep) however she does endorse dysphagia to solid/dry foods requiring water with all meals of that nature speech consulted -appreciate input --> Also placed on famotidine 20 twice daily she is previously taking omeprazole 20 twice daily as outpatient stable on room air 95% (5) Hypertension: Plan: and HLD/pAfib (Hx of, with RVR, causing LV systolic dysfunction. LV function improved with resolution of a-flutter with cardioversion in 2009) follows with Dr. Powell Statin intolerant Continue metoprolol tartrate 75mg BID, spironolactone 50mg BID (6) Type 2 diabetes mellitus with insulin therapy: Plan: Most recent A1c 6.0 Hold home regimen -- glargine 60u HS ISS BSGs AC/HS Sugars well controlled Continue to monitor (7) Statin intolerance: Plan: noted (8) Fatty liver: Plan: noted (9) Anxiety and depression: Plan: continue home bupropion, fluoxetine lorazepam prn (10) Chronic low back pain: Plan: Bone pain also probably secondary hypercalcemia as well Has a known history of chronic low back pain. She would like to hold off on imaging at this time Trial of Voltaren gel, heating pad Also will try baclofen to see if effective and possible continuation of this at discharge Continue to monitor DVT Proph -- Venous Dopplers ordered for reported swelling/pain and family hx clots of unknown origin --> Venous Dopplers without DVT however does note right-sided Jiménez's cyst suspected Heparin SQ (tolerated heparin in past after having her son without issue) Dispo: continued inpatient stay, possible discharge (11) Hypomagnesemia: Plan: 1.5 today Replacement with IV Likely hypomagnesemia omeprazole use Monitor on a.m. lab Admission and Anticipated Discharge Date Admission Date: September 26, 2020 Supervising Physician Co-Signing Physician Notes CLARE Supervision Note: I did not personally see or examine the patient today, but I verified all patel points of CLARE Blackman's assessment and plan with the following exceptions/additions: None Subjective Patient evaluated this morning. She states that her appetite has increased and she is less painful today. No further nausea or vomiting. She is passing lots of gas but has not had a bowel movement and received MiraLAX this morning. She has been working on moving her bowels. Discussed that her calcium is improved however still elevated we will continue with IV fluids for now. We will hold off on any Toradol for discomfort and utilize baclofen for chronic back pain issues. She would like to hold off any imaging at this time she knows she will need surgery in the future but has been managing conservatively. Discussed venous Dopplers with Jiménez's cyst and no evidence of DVT. She notes that this is an issue, and in her family. She notes that her back pain is slightly worse due to bed and positioning but would be agreeable to try dose of Bactrim to see if effective and will send this at discharge effective at controlling her symptoms. Also discussed Voltaren gel which she had used in the past but was hesitant about damage to her kidneys when using to the low back. Discussed that this does not get absorbed systemically and should be okay for use today. She is also requesting a heating pad has not yet been delivered.. She denies any fever, chills, chest pain, shortness of breath, abdominal pain na usea or vomiting. She has been making adequate urine without issue. She would like a doctor's note for work for herself as well as her as he used his last PT OT yesterday. We will arrange with case management and email if possible. Review of Systems Review of Systems: All systems reviewed & are unremarkable except as noted in HPI & below Physical Exam Constitutional: well developed, well nourished and + obese; no acute distress and not ill appearing Eyes: + anicteric sclerae; no eyelid abnormality ENMT: Ears: no external ear abnormality Nose: no external nose abnormality Neck: normal visual inspection and trachea midline Respiratory: normal respiratory effort and able to speak in complete sentences; no respiratory distress and no audible wheezes Cardiovascular: Extremities: no edema Gastrointestinal (Abdomen): Inspection/Auscultation: abdomen normal to inspection; abdomen not distended Percussion/Palpation: abdomen soft; abdomen nontender and no guarding Musculoskeletal: no cyanosis or clubbing, extremities motor strength 5/5 jiménez's cyst posterior R knee, minimal tenderness to palpation b/l LE Skin: No visible rashes, lesions, or wounds noted. Neurologic: moves all extremities and awake Psychiatric: Orientation: alert, oriented x 3 and cooperative Affect: euthymic affect Genitourinary: no CVA tenderness Results & Data Results & Data ([facility]) Vital Signs (Past 12 Hours) Vital Signs Temp Pulse Pulse Resp BP Pulse Ox 09/28/20 07:51 37.0 C 77 20 122/79 95 09/28/20 04:00 86 09/28/20 02:52 37 C 72 18 126/72 96 09/27/20 23:19 37.1 C 84 18 116/68 95 09/27/20 20:01 36.8 C 85 18 112/74 91 Laboratory Results 09/28/20 09/28/20 09/28/20 Range/Units 08:53 08:53 08:53 WBC (4.8-10.8) K/uL RBC (4.2-5.4) M/uL Hgb (12.0-16.0) g/dL Hct (37-47) % MCV (80-100) fL MCH (25-34) pg MCHC (32-36) g/dL RDW Std Deviation (36.4-46.3) fL RDW Coeff of Sheridan (11.5-14.5) % Plt Count (130-400) K/uL MPV (7.4-10.4) fL Immature Gran % (Auto) % Neut % (Auto) % Lymph % (Auto) % [place] % (Auto) % Eos % (Auto) % Baso % (Auto) % Neut # (Auto) (1.4-6.5) K/uL Lymph # (Auto) (1.2-3.4) K/uL [place] # (Auto) (0.11-0.59) K/uL Eos # (Auto) (0-0.5) K/uL Baso # (Auto) (0-0.2) K/uL Immature Gran # (Auto) (0.00-0.02) K/uL Sodium 141 (136-145) mmol/L Potassium 3.4 L (3.5-5.1) mmol/L Chloride 112 H (98-107) mmol/L Carbon Dioxide 23 (21-32) mmol/L Anion Gap 6.0 (3-11) BUN 23 H (7-18) mg/dl Creatinine 1.26 H (0.6-1.2) mg/dl Est Cr Clr Drug Dosing 68.1 ml/min Est GFR ( Amer) 55.9 ml/min Est GFR (Non-Af Amer) 48.3 ml/min BUN/Creatinine Ratio 17.9 (10-20) Glucose 112 H (70-99) mg/dl POC Glucose (70-99) mg/dl Calcium 10.6 H (8.5-10.1) mg/dl Ionized Calcium 1.40 H (1.12-1.32) mmol/L Phosphorus 1.9 L Magnesium 1.5 L (1.8-2.4) mg/dl Total Bilirubin 0.3 (0.2-1) mg/dl AST 16 (15-37) U/L ALT 29 (12-78) U/L Alkaline Phosphatase 57 (45-117) U/L Total Protein 6.6 D (6.4-8.2) gm/dl Albumin 3.2 L (3.4-5.0) gm/dl Globulin 3.4 (2.5-4.0) gm/dl Albumin/Globulin Ratio 0.9 (0.9-2) 09/28/20 09/28/20 09/27/20 Range/Units 08:53 08:01 20:14 WBC 9.13 (4.8-10.8) K/uL RBC 4.22 (4.2-5.4) M/uL Hgb 12.6 (12.0-16.0) g/dL Hct 38.3 (37-47) % MCV 90.8 (80-100) fL MCH 29.9 (25-34) pg MCHC 32.9 (32-36) g/dL RDW Std Deviation 47.4 H (36.4-46.3) fL RDW Coeff of Sheridan 14.3 (11.5-14.5) % Plt Count 222 (130-400) K/uL MPV 9.9 (7.4-10.4) fL Immature Gran % (Auto) 0.8 % Neut % (Auto) 47.4 % Lymph % (Auto) 37.7 % [place] % (Auto) 8.8 % Eos % (Auto) 4.9 % Baso % (Auto) 0.4 % Neut # (Auto) 4.33 (1.4-6.5) K/uL Lymph # (Auto) 3.44 H (1.2-3.4) K/uL [place] # (Auto) 0.80 H (0.11-0.59) K/uL Eos # (Auto) 0.45 (0-0.5) K/uL Baso # (Auto) 0.04 (0-0.2) K/uL Immature Gran # (Auto) 0.07 H (0.00-0.02) K/uL Sodium (136-145) mmol/L Potassium (3.5-5.1) mmol/L Chloride (98-107) mmol/L Carbon Dioxide (21-32) mmol/L Anion Gap (3-11) BUN (7-18) mg/dl Creatinine (0.6-1.2) mg/dl Est Cr Clr Drug Dosing ml/min Est GFR ( Amer) ml/min Est GFR (Non-Af Amer) ml/min BUN/Creatinine Ratio (10-20) Glucose (70-99) mg/dl POC Glucose 90 104 H (70-99) mg/dl Calcium (8.5-10.1) mg/dl Ionized Calcium (1.12-1.32) mmol/L Phosphorus Magnesium (1.8-2.4) mg/dl Total Bilirubin (0.2-1) mg/dl AST (15-37) U/L ALT (12-78) U/L Alkaline Phosphatase (45-117) U/L Total Protein (6.4-8.2) gm/dl Albumin (3.4-5.0) gm/dl Globulin (2.5-4.0) gm/dl Albumin/Globulin Ratio (0.9-2) 09/27/20 09/27/20 09/27/20 Range/Units 16:32 15:12 15:12 WBC (4.8-10.8) K/uL RBC (4.2-5.4) M/uL Hgb (12.0-16.0) g/dL Hct (37-47) % MCV (80-100) fL MCH (25-34) pg MCHC (32-36) g/dL RDW Std Deviation (36.4-46.3) fL RDW Coeff of Sheridan (11.5-14.5) % Plt Count (130-400) K/uL MPV (7.4-10.4) fL Immature Gran % (Auto) % Neut % (Auto) % Lymph % (Auto) % [place] % (Auto) % Eos % (Auto) % Baso % (Auto) % Neut # (Auto) (1.4-6.5) K/uL Lymph # (Auto) (1.2-3.4) K/uL [place] # (Auto) (0.11-0.59) K/uL Eos # (Auto) (0-0.5) K/uL Baso # (Auto) (0-0.2) K/uL Immature Gran # (Auto) (0.00-0.02) K/uL Sodium 138 (136-145) mmol/L Potassium 3.8 (3.5-5.1) mmol/L Chloride 106 (98-107) mmol/L Carbon Dioxide 27 (21-32) mmol/L Anion Gap 5.0 (3-11) BUN 28 H (7-18) mg/dl Creatinine 1.55 H (0.6-1.2) mg/dl Est Cr Clr Drug Dosing 54.8 ml/min Est GFR ( Amer) 43.5 ml/min Est GFR (Non-Af Amer) 37.6 ml/min BUN/Creatinine Ratio 17.7 (10-20) Glucose 105 H (70-99) mg/dl POC Glucose 103 H (70-99) mg/dl Calcium 11.2 H (8.5-10.1) mg/dl Ionized Calcium (1.12-1.32) mmol/L Phosphorus 2.0 L Cancelled Magnesium (1.8-2.4) mg/dl Total Bilirubin (0.2-1) mg/dl AST (15-37) U/L ALT (12-78) U/L Alkaline Phosphatase (45-117) U/L Total Protein (6.4-8.2) gm/dl Albumin (3.4-5.0) gm/dl Globulin (2.5-4.0) gm/dl Albumin/Globulin Ratio (0.9-2) /01/07 Range/Units 11:42 WBC (4.8-10.8) K/uL RBC (4.2-5.4) M/uL Hgb (12.0-16.0) g/dL Hct (37-47) % MCV (80-100) fL MCH (25-34) pg MCHC (32-36) g/dL RDW Std Deviation (36.4-46.3) fL RDW Coeff of Sheridan (11.5-14.5) % Plt Count (130-400) K/uL MPV (7.4-10.4) fL Immature Gran % (Auto) % Neut % (Auto) % Lymph % (Auto) % [place] % (Auto) % Eos % (Auto) % Baso % (Auto) % Neut # (Auto) (1.4-6.5) K/uL Lymph # (Auto) (1.2-3.4) K/uL [place] # (Auto) (0.11-0.59) K/uL Eos # (Auto) (0-0.5) K/uL Baso # (Auto) (0-0.2) K/uL Immature Gran # (Auto) (0.00-0.02) K/uL Sodium (136-145) mmol/L Potassium (3.5-5.1) mmol/L Chloride (98-107) mmol/L Carbon Dioxide (21-32) mmol/L Anion Gap (3-11) BUN (7-18) mg/dl Creatinine (0.6-1.2) mg/dl Est Cr Clr Drug Dosing ml/min Est GFR ( Amer) ml/min Est GFR (Non-Af Amer) ml/min BUN/Creatinine Ratio (10-20) Glucose (70-99) mg/dl POC Glucose 102 H (70-99) mg/dl Calcium (8.5-10.1) mg/dl Ionized Calcium (1.12-1.32) mmol/L Phosphorus Magnesium (1.8-2.4) mg/dl Total Bilirubin (0.2-1) mg/dl AST (15-37) U/L ALT (12-78) U/L Alkaline Phosphatase (45-117) U/L Total Protein (6.4-8.2) gm/dl Albumin (3.4-5.0) gm/dl Globulin (2.5-4.0) gm/dl Albumin/Globulin Ratio (0.9-2) Diagnostic Findings Abdomen/Pelvis CT 09/27/20 13:[address] WITHOUT CONTRAST CT DOSE: 1524.13 mGy.cm HISTORY: Follow up study in a patient with history of renal calculi Evaluate for obstructing calculi TECHNIQUE: Multiaxial CT images of the abdomen and pelvis were performed without contrast. A dose lowering technique was utilized adhering to the principles of ALARA. COMPARISON STUDY: 09/23/2019. FINDINGS: The imaged inferior cardiac chambers are unremarkable. The unenhanced spleen, pancreas, adrenal glands and gallbladder are unremarkable. Hepatic steatosis with mild hepatomegaly. There are least 3 nonobstructing calculi of the left kidney measuring up to 7 mm. There are least 4 nonobstructing calculi of the ri ght kidney measuring up to 7 mm. No ureteral calculi or hydronephrosis. Unremarkable urinary bladder, uterus and adnexa. There is no abdominal aortic aneurysm. No adenopathy. No bowel obstruction or bowel wall thickening. Mild fecal retention of the rectum. Mild colonic diverticulosis. No ascites or mesenteric inflammation. Normal appendix. Small fat filled lower anterior abdominal wall hernias are noted, largest of which demonstrates diastases of 5.2 x 4.7 cm. Prior ventral abdominal wall herniorrhaphy changes. No acute fracture. Degenerative changes of the spine, pelvis and hips. IMPRESSION: 1. Nonobstructing bilateral nephrolithiasis. No ureteral calculi or hydronephrosis. 2. No bowel obstruction or bowel wall thickening. Normal appendix. 3. Colonic diverticulosis. 4. Hepatomegaly with hepatic steatosis. 5. Prior ventral abdominal wall hernia repair with several fat filled ventral abdominal wall hernias. ACT 112: Negative or not required by law. The above report was generated using voice recognition software. It may contain grammatical, syntax or spelling errors. Electronically signed by: Catrachito Foote M.D. 09/27/2020 3:03 PM Venous Doppler Study 09/27/20 16:19 ULTRASOUND BILATERAL LOWER EXTREMITY VENOUS CLINICAL HISTORY: Leg pain. COMPARISON STUDY: No priors. TECHNIQUE: Real-time, grayscale, and color Doppler sonography of the deep veins of the right and left lower extremity was performed from the inguinal crease to the calf. Compression and augmentation were utilized. FINDINGS: There is no sonographic evidence of deep venous thrombosis identified in the right or left lower extremity. The common femoral, superficial femoral, and popliteal veins are patent and normally compressible bilaterally. The greater saphenous vein and the profunda femoris vein at the junction with the common femoral vein are clear in both legs. The visualized calf veins are patent bilaterally. A minimally complex right popliteal cyst measures 5.5 x 1.0 x 2.1 cm. IMPRESSION: 1. There is no sonographic evidence of deep venous thrombosis identified in the right or left lower extremity. 2. Right-sided Jiménez's cyst. ACT 112: Negative or not required by law. Electronically signed by: Jasiel Cooley M.D. 09/27/2020 5:21 PM PG Care Time/CCT Total # of Minutes Spent Total Time Spent with Patient: Total time spent is greater than 50% in coordination of care (as documented) at patient's floor/unit and/or counseling patient: Coding Level of Care Code 85581 Subseq Hosp Care Lvl 3 Diagnoses Acute kidney injury N17.9 Asthma J45.909 Hypertension I10 Type 2 diabetes mellitus with insulin therapy E11.9; Z79.4 Statin intolerance Z78.9 Fatty liver K76.0 Anxiety and depression F41.9; F32.9 Vitamin D toxicity T45.2X1A Hypercalcemia E83.52 Chronic low back pain M54.5; G89.29 Hypomagnesemia E83.42
--- NOTE | 2020-09-28 08:21 | Urology Progress Note ---
Date of Service September 28, 2020 Assessment & Plan (1) Kidney stones: Plan: - Afebrile, no new labs at time of visit today, PM lab work 09/27 - creatinine 1.55, WBC 10.85 - Pt subjectively continues to improve, no nausea or vomiting, denies flank pain - UC&S pending, follow cultures - CTAP reviewed with patient - bilateral nonobstructing nephrolithiasis, no ureteral calculi or hydronephrosis - No acute intervention indicated at this time - Discussed outpatient follow-up for her renal stones, she is agreeable - Will arrange outpatient follow-up with our service Thank you for allowing us to participate in the acute care of Ms. Mccormack. Please reconsult us with additional questions, concerns or changes in patient status. Admission and Anticipated Discharge Date Admission Date: September 26, 2020 Subjective Pt awake, alert and sitting up at the side of the bed eating breakfast. No acute issues overnight. Reports low back discomfort, but no flank pain. Tolerating diet, no nausea or vomiting. Voiding spontaneously, no dysuria or hematuria. Feels she empties bladder +/-, notes initial stream without difficulty, but then takes time/effort to empty. No fever or chills. Chart review: Afebrile, no new labs at time of visit. UC&S pending. CTAP wo con reviewed personally and demonstrated bilateral nonobstructing stones, no ureteral stones or hydronephrosis. No additional concerns today. Review of Systems Constitutional: as per Subjective / HPI Gastrointestinal: as per Subjective / HPI Genitourinary: as per Subjective / HPI Physical Exam 2 Constitutional: well developed and well nourished; no acute distress and not ill appearing Respiratory: normal respiratory effort and able to speak in complete sentences; no respiratory distress and no labored breathing Gastrointestinal (Abdomen): Inspection/Auscultation: abdomen normal to inspection; abdomen not distended Neurologic: moves all extremities and awake Psychiatric: Orientation: alert, oriented x 3 and cooperative Genitourinary: no CVA tenderness Results & Data ([facility]) Vital Signs (Past 12 Hours) Vital Signs Temp Pulse Pulse Resp BP Pulse Ox 09/28/20 07:51 37.0 C 77 20 122/79 95 09/28/20 04:00 86 09/28/20 02:52 37 C 72 18 126/72 96 09/27/20 23:19 37.1 C 84 18 116/68 95 PG Care Time/CCT Total # of Minutes Spent Total Time Spent with Patient: Total time spent is greater than 50% in coordination of care (as documented) at patient's floor/unit and/or counseling patient: Coding Diagnoses Kidney stones N20.0
[2020-09-28] MEDS: INSULIN ASPART 100 UNITS/ML 3 ML PEN SC SCH ×3 (08:51→17:36)
[2020-09-28] MEDS: SPIRONOLACTONE 25 MG TAB PO SCH (08:54)
[2020-09-28] MEDS: buPROPion SR 100 MG TABCR PO SCH (08:54)
[2020-09-28] MEDS: FAMOTIDINE 20 MG TAB PO SCH (08:54)
[2020-09-28] MEDS: METOPROLOL TARTRATE 25 MG TAB PO SCH (08:55)
[2020-09-28] MEDS: FLUoxetine HCL 20 MG CAP PO SCH (08:55)
[2020-09-28] MEDS: NYSTATIN SUSP 500,000 U/5 ML UDC BUCCAL SCH ×3 (08:55→17:35)
[2020-09-28] MEDS: DOCUSATE SODIUM 100 MG CAP PO SCH (08:55)
[2020-09-28 09:14] LABS: Basophils # (auto) 0.04 K/uL (0-0.2); Basophils % (auto) 0.4 %; Eosinophils # (auto) 0.45 K/uL (0-0.5); Eosinophils % (auto) 4.9 %; Hematocrit (blood only) 38.3 % (37-47); Hemoglobin 12.6 g/dL (12.0-16.0); Immature Granulocytes # (auto) 0.07 K/uL (0.00-0.02); Immature Granulocytes % (auto) 0.8 %; Lymphocytes # (auto) 3.44 K/uL (1.2-3.4); Lymphocytes % (auto) 37.7 %; Mean Corpuscular Hemoglobin 29.9 pg (25-34); Mean Corpuscular Hgb Conc 32.9 g/dL (32-36); Mean Corpuscular Volume 90.8 fL (80-100); Mean Platelet Volume 9.9 fL (7.4-10.4); Monocytes % (auto) 8.8 %; Neutrophils # (auto) 4.33 K/uL (1.4-6.5); Neutrophils % (auto) 47.4 %; Platelet Count 222 K/uL (130-400); RDW Coefficient of Variation 14.3 % (11.5-14.5); RDW Standard Deviation 47.4 fL (36.4-46.3); Red Blood Count 4.22 M/uL (4.2-5.4); White Blood Count 9.13 K/uL (4.8-10.8)
[2020-09-28] MEDS ORDERED: BACLOFEN 10 MG TAB PO PRN (09:42)
[2020-09-28 09:53] LABS: Albumin Level 3.2 gm/dl (3.4-5.0); BUN Creatinine Ratio 17.9 (10-20); Calcium 10.6 mg/dl (8.5-10.1); Creatinine Clr Calc Pharmacy 68.1 ml/min; Est GFR (African American) 55.9 ml/min; Est GFR (Non-African American) 48.3 ml/min; Potassium 3.4 mmol/L (3.5-5.1)
[2020-09-28 10:14] LABS: Albumin Globulin Ratio 0.9 (0.9-2); Bilirubin,Total 0.3 mg/dl (0.2-1); Globulin 3.4 gm/dl (2.5-4.0); Phosphorus 1.9 mg/dl (2.5-4.9); Total Protein 6.6 gm/dl (6.4-8.2)
[2020-09-28] MEDS ORDERED: POTASSIUM PHOS 3 MMOL/1 ML INFUSION IV STA (10:15)
[2020-09-28] MEDS ORDERED: DICLOFENAC SOD 1% GEL 100 GM TUBE EXT PRN (10:40)
[2020-09-28] MEDS ORDERED: POTASSIUM PHOSPHATE 15 MMOL in SODIUM CHLORIDE 0.9% 250 ML IV ONE (11:00)
[2020-09-28] MEDS: MAGNESIUM SULFATE / D5W 1 GM/100 ML BAG IV SCH ×3 (12:18→15:55)
--- NOTE | 2020-09-28 13:56 | XRay Report ---
KUB CLINICAL HISTORY: Nephrolithiasis. FINDINGS: 2 AP supine abdominal radiographs are compared to study dated 09/02/2019 and correlated with abdominal CT dated 09/27/2020. There is a nonobstructed abdominal bowel gas pattern. Severe constipat ion is noted and partially obscures the renal shadows. There are least 2 calculi projecting over the right kidney which measure up to 8 mm. A cluster of nonobstructing calculi projects over the lower po le of the left kidney and measure up to 8 mm. There is no radiographic evidence of ureteral stone. Th e skeletal structures are osteopenic and appear intact. Lumbosacral spondylosis is noted. IMPRESSION: Bilateral nephrolithiasis as above. Electronically signed by: Jasiel Cooley M.D. 09/28/2020 1:54 PM
[2020-09-28] MEDS ORDERED: MAGNESIUM CITRATE 296 ML/BTL PO ONE (15:00)
--- NOTE | 2020-09-28 15:40 | Discharge Summary ---
Date of Service September 28, 2020 Admission HPI Per Admitting Provider Rosalie Mccormack is a 55-year-old female with past medical history significant for type 2 diabetes, anxiety, depression, hyperlipidemia, paroxysmal atrial flutter, asthma, and recent diagnosis of thrush; who presents for concerns of 4 to 5 days of dizziness with associated nausea, vomiting, and inability to tolerate oral intake. Originally noticed this after some nausea feelings early last week, with associated dizziness over the last several days. Did noticed that the dizziness was exacerbated through movement, and resolved with rest. Did not notice any association or increased dizziness with motion of her head, but only noticed when she was moving her entire body. In the ED did have multiple rounds of nausea when attempting to move around within the room or and transferred to the CT scanner table. Denies chest pain, shortness of breath, abdominal pain, changes in sensation of her arms or legs, significant changes in strength for upper or lower extremities. Feels somewhat weak all over but is not sure if this is because she has been dizzy and nauseous for several days now. Admission Exam Per Admitting Provider Constitutional: WD/WN, vitals as above Eyes: PERRL, conjunctivae normal, anicteric sclerae Respiratory: normal respiratory effort, lungs clear to auscultation Auscultation: no crackles, no rales, no rhonchi and no wheezes Cardiovascular: Rate/Rhythm: regular rate and regular rhythm Heart Sounds: no gallop, no murmur and no cardiac rub Vessels: normal peripheral pulses; no JVD Extremities: no edema Gastrointestinal (Abdomen): Inspection/Auscultation: normal bowel sounds; abdomen not distended Percussion/Palpation: abdomen soft; abdomen nontender and no guarding Musculoskeletal: no cyanosis or clubbing, extremities motor strength 5/5 Skin: no rashes, warm and dry Neurologic: PERRL, EOMI, accommodation nl, no face palsy, no dysarthria CN's II-XI intact bilaterally and moves all extremities Psychiatric: Orientation: alert and oriented x 3 Principal Diagnosis Hypercalcemia, vitamin D toxicity, acute kidney injury Discharge Exam Constitutional well developed, well nourished and + obese; no acute distress and not ill appearing Eyes + anicteric sclerae; no eyelid abnormality ENMT Ears: no external ear abnormality Nose: no external nose abnormality Neck normal visual inspection and trachea midline Respiratory normal respiratory effort and able to speak in complete sentences; no respiratory distress and no audible wheezes Cardiovascular RRR, no murmur, no edema Gastrointestinal (Abdomen) Inspection/Auscultation: abdomen normal to inspection; abdomen not distended Percussion/Palpation: abdomen soft; abdomen nontender and no guarding Musculoskeletal no cyanosis or clubbing, extremities motor strength 5/5 Jiménez's cyst right posterior knee Chronic low back pain --neurovascularly intact, pulses palpable bilaterally Calves tender to palpation (negative venous Doppler bilateral) Skin Warm and dry Neurologic moves all extremities and awake Psychiatric Orientation: alert, oriented x 3 and cooperative Affect: euthymic affect Genitourinary no CVA tenderness Discharge Data Allergies Allergy/AdvReac Type Severity Reaction Status Date / Time codeine Allergy Intermediate SEVERE Verified 09/26/20 17:38 [From Tylenol-Codeine #3] MIGRAINES latex Allergy Intermediate LIPS Verified 09/26/20 17:38 SWELLING pravastatin Allergy Intermediate Hives Verified 09/26/20 17:38 simvastatin Allergy Intermediate Hives Verified 09/26/20 17:38 doxycycline Allergy Mild Rash Verified 09/26/20 17:38 erythromycin base Allergy Mild RASH Verified 09/26/20 17:38 Penicillins Allergy Mild RASH Verified 09/26/20 17:38 prednisone Allergy Mild RASH Verified 09/26/20 17:38 Sulfa (Sulfonamide Allergy Mild RASH Verified 09/26/20 17:38 Antibiotics) acetaminophen Allergy Unknown Verified 09/26/20 17:38 [From Tylenol-Codeine #3] empagliflozin AdvReac Mild Increase Verified 09/26/20 17:38 [From Jardiance] yeast infections and pt reporting worsening mood hydrocodone AdvReac Mild SEVERE GASTON Verified 09/26/20 17:38 Consultations 09/26/20 19:04 ED Decision to Admit Stat 09/27/20 12:05 Consult Urology Routine Ordered Studies 09/26/20 16:55 CT head/brain wo con Stat 09/27/20 08:00 US renal/blad retro comp Urgent 09/27/20 13:23 CT abd pelvis wo con Routine 09/27/20 16:19 US venous doppler LE BI Routine Hospital Course (1) Hypercalcemia: Rosalie Mccormack is a 55-year-old female with past medical history significant for type 2 diabetes, anxiety, depression, hyperlipidemia, paroxysmal atrial flutter, asthma, and recent diagnosis of thrush; who presents for concerns of 4 to 5 days of dizziness with n/v inability to tolerate PO --Hx kidney stones and had required ESWL with Urology last August Hypercalcemia 2nd to vitamin D intoxication from supplementation Calcium 14.5 on admission with ionized Ca 1.59 Vitamin D elevated 146.5 PTH appropriately low <6 Patient had been taking calcium carbonate 600mg BID and Cholecalciferol 150mcg BID --> THESE HAVE BEEN HELD AND TO BE DISCONTINUED AT DISCHARGE CAT scan of the head without acute finding Also with a history of stones and given reported previous possible flank tend erness renal ultrasound was obtained due to her MATEO on admission with creatinine of 1.56 to prevent any contrast which revealed possible calculus within the proximal aspect of the left ureter with mild fullness of the left collecting system. Multiple large calculi were seen within the left renal pelvis during prior CT of the abdomen pelvis. Urology was consulted given her history and they ordered a CAT scan abdomen pelvis which showed nonobstructing bilateral nephrolithiasis without ureteral calculi or hydronephrosis and they will arrange outpatient follow-up regarding starting treatment Patient was treated with copious IV fluid resuscitation--no previous history of CHF Lasix was avoided given MATEO but instructed patient to resume tomorrow as creatinine normalized and almost back to baseline Was initially going to stay until tomorrow however has been having difficulty at home by himself with a child who is a picky eater and decision was made to repeat labs this evening which revealed calcium 10.1 with an albumin of 3.2 for corrected 10.7 however given much improvement with calcium 14.5 on admission decision was made patient could safely be discharged home and push oral fluids along with discontinuation of her calcium and vitamin D supplementation as above Electrolyte abnormalities replacedsee hypophosphatemia and hypomagnesemia as below (2) Vitamin D toxicity: Cause for above is overtreatment as outpatient Held calcium carbonate and vitamin D supplementation on admission and discontinued at discharge See above regarding treatment of her hypercalcemia (3) Acute kidney injury: See above IV fluids with creatinine on repeat this evening 1.19 Lasix to be resumed tomorrow and patient is to push oral fluids at home which will also help with her hypercalcemia Instructed patient to limit use of oral diclofenac instead use topical for chronic low back pain to prevent damage to her kidneys (4) Asthma: transitioned home regimen to hospital formulary continued usual montelukast 10mg daily Also with thrush per outpatient (none observed) -- continued nystatin at this time however she did endorse dysphagia to solid/dry foods requiring water with all meals of that nature speech consulted -appreciate input. Normal exam however recommended if she continues with globus sensation that she follow-up with PCP about referral for GI in the future She is to continue her prior to admission omeprazole 20 mg twice daily (5) Hypertension: and HLD/pAfib (Hx of, with RVR, causing LV systolic dysfunction. LV function improved with resolution of a-flutter with cardioversion in 2009) follows with Dr. Powell Statin intolerant Continue metoprolol tartrate 75mg BID, spironolactone 50mg BID (6) Type 2 diabetes mellitus with insulin therapy: Most recent A1c 6.0, repeat 6.3 Sliding scale while inpatient along with her usual glargine 60 units at bedtime Sugars well controlled Encouraged low-carb diet at discharge as discussed with patient and on phone (7) Statin intolerance: noted (8) Fatty liver: noted (9) Anxiety and depression: continued home bupropion, fluoxetine lorazepam prn (10) Chronic low back pain: Chronic, but also bone pain also probably secondary hypercalcemia as well Some radiucular symptoms from lumbar spine but wanted to hold off on imaging well inpatient at this time as she has been managing just fine at home per her account Heating pad and topical Voltaren utilized and Symptoms at baseline Pain did decrease with correction of her calcium as above possible Would avoid oral diclofenac as much as possible to prevent worsening kidney damage. Did get a dose of baclofen which helped her leg symptoms but did not do much for her back Follow-up with primary care DVT Proph -- Venous Dopplers ordered for reported swelling/pain and family hx clots of unknown origin --> Venous Dopplers without DVT however does note right-sided Jiménez's cyst as suspected Utilized Heparin SQ while inpatient Dispo: continued inpatient stay, possible discharge (11) Hypomagnesemia: Secondary to above, GI IV replacement ordered and reviewed normal limits (12) Hypophosphatemia: Severely low at 1.1 on admission and was aggressively placed over the previous 2 days with repeat now normal Discharged with this evening after repeat labs demonstrated continued improvement of her calcium levels and resolution of her hypomagnesemia and hypophosphatemia normalization of her creatinine Total Time Total Time Spent Total Time Spent (In Minutes): 65 Discharge Plan Discharge Items Patient Disposition: Home - Self-Care Reason For Visit: MATEO, HYPERCALCEMIA Discharge Diagnosis: Hypercalcemia secondary to Vitamin D toxicity (from medications), Acute Kidney Injury Goals: You have been hospitalized for an acute medical problem. During your stay at [facility], we have made an effort to correct the problem that brought you to the hospital while keeping you as comfortable as possible. Medications were used to bring your condition under control and your discharge instructions will include directions for any medications you should take after leaving the hospital. Please make sure you see your Primary Care Provider as part of your follow up plan. Activity: Resume your previous activity Non-emergency contact: Primary Care Provider and Urologist Call non-emergency contact if: you have any medication questions, your symptoms worsen, your pain is not controlled and you have a fever Follow-up/Referrals: Justin Salgado MD [Physician] - (PLEASE CALL DR SALGADO'S OFFICE TO SET UP A FOLLOW-UP DISCHARGE APPOINTMENT.) Ankita Tony MD [Primary Care Provider] - 10/09/20 4:00 pm Diet: Carb Consistent or DM2 and Heart Healthy Addtl Attending Provider Instructions: You have been hospitalized for elevated calcium level. Thankfully based on review of labs and medication this does seem to be related to your calcium carbonate and vitamin D supplementation that you were taking prior to admission. Treatment for this is to discontinue these medications and provide IV fluids as we have.. Elevated calcium levels can frequently cause constipation as well and if you continue to experience this you should be on daily MiraLAX [id number] Colace. Your bowels have been active given increase in gas and you were provided with a drink of mag citrate prior to discharge to help get your bowels moving. This can also be purchased [id number]. This does put you at increased risk for stone formation and ultrasound and CAT scan of your abdomen and pelvis were performed for evaluation of an obstructing stone given your nausea and vomiting prior to admission. Please note that it does raise the possibility of a possible passage of a smaller stone prior to admission given your flank pain reported prior to admission. Your kidney function was elevated but with IV fluids has returned back to baseline. You have been given topical Voltaren for pain however you should avoid this as an oral medication for pain control to prevent damage to your kidneys unless absolutely needed for short-term. You can resume your Metformin tomorrow. Urology will arrange for outpatient follow-up for definitive stone treatment. You are evaluated by speech therapy regarding issues with swallowing chicken and other dry materials requiring water for swallowing. Swallow study was normal however if you continue to experience a sensation you should discuss with your primary care about follow-up with a GI provider as we discussed. Should continue medications for your GERD as these help with the symptoms as well. You have been started on daily mag oxide to prevent any low magnesium levels as this could be due to your omeprazole use as this is a common finding in patients who take this. You should maintain a heart healthy diet and limit carbohydrates as your blood sugars have been well controlled during admission to the hospital diet and this would be ideal to keep control of chronic medical issues which have been well controlled given your most recent A1c of 6.3, however this is up from prior value of 6.0. Regarding her leg symptoms, they are likely related to your back issues and as discussed you wanted to hold off on back imaging at this time but it is recommended that you follow-up with your primary care provider and consider imaging if this persists or worsens or if you develop any bowel or bladder incontinence. You may continue to use the topical Voltaren to her legs and lower back as needed for relief. Urine did not show any evidence of infection. Your white count was elevated on admission but this is likely secondary to the nausea and vomiting before admission and has normalized without use of antibiotics. You should resume your Lasix tomorrow and please ensure that you are drinking lots of water to help flush kidneys. Please follow-up with your primary care and urology in the upright weeks to monitor progress since hospitalization.. You have been provided a work note. Please return to the emergency department if you have any fevers, chest pain, shortness of breath, worsening abdominal pain or nausea or inability to keep up with oral intake. Has been a pleasure being a part of the medical team providing for you while you have been in the hospital. Take care. Pending Studies at Discharge: No Stand-Alone Forms: My [employer], Work/School Release Medications and DC Order Prescriptions: New diclofenac sodium [Voltaren Arthritis Pain] 1 % Gel 2 g EXT QID PRN (Reason: pain) Qty: 100 RF: 0 docusate sodium 100 mg Capsule 100 mg PO BID Qty: 10 RF: 0 Continued (DME) pen needle, diabetic [BD Ultra-Fine Mini Pen Needle] 31 gauge x 3/16" needle See Dose Instructions .ROUTE .MEDSUPPLY Qty: 100 RF: 3 (DME) lancets [Accu-Chek Fastclix Lancet Drum] Misc See Dose Instructions .ROUTE .MEDSUPPLY Qty: 200 RF: 5 omeprazole 20 mg capsule,delayed release(DR/EC) 20 mg PO BID Qty: 60 RF: 5 (DME) Accu-Chek Guide test strips Strip See Rx Instructions .ROUTE .MEDSUPPLY Qty: 200 RF: 5 Ozempic 0.25 mg or 0.5 mg(2 mg/1.5 mL) pen injector 0.5 mg subcut .COMPLEX Qty: 1.5 RF: 5 nystatin 100,000 unit/mL suspension 500,000 unit buccal QID 10 Days Qty: 200 RF: 11 metformin 500 mg tablet extended release 24hr 1,000 mg PO BID Qty: 360 RF: 3 fluticasone propionate [Allergy Relief (fluticasone)] 50 mcg/actuation spray,suspension 1 sprays INTNAS DAILY PRN (Reason: ALLERGIES) RF: 0 diclofenac sodium 75 mg tablet,delayed release (DR/EC) 75 mg PO BID PRN (Reason: pain) Qty: 60 RF: 1 potassium chloride See Rx Instructions .ROUTE .COMPLEX RF: 0 sumatriptan succinate [Imitrex] 100 mg tablet See Rx Instructions PO .COMPLEX Qty: 10 RF: 5 ondansetron HCl 8 mg tablet 8 mg PO Q8H PRN (Reason: nausea and vomiting) Qty: 30 RF: 1 levalbuterol tartrate [Xopenex HFA] 45 mcg/actuation HFA aerosol inhaler 2 inh INH Q6H PRN (Reason: shortness of breath or wheezing) Qty: 15 RF: 3 montelukast 10 mg tablet 10 mg PO QPM Qty: 90 RF: 3 lorazepam 0.5 mg tablet 0.5 mg PO DAILY PRN (Reason: anxiety) Qty: 30 RF: 0 fluoxetine 20 mg capsule 20 mg PO QAM Qty: 30 RF: 5 ascorbic acid (vitamin C) 1,000 mg Tablet 1 g PO BID RF: 0 garlic Tablet 1,000 mg PO BID RF: 0 cyanocobalamin (vitamin B-12) 2,500 mcg Tablet 2,500 mcg PO QAM RF: 0 spironolactone 100 mg tablet 50 mg PO BID RF: 0 aspirin [Aspirin Low Dose] 81 mg Tablet,Delayed Release (Dr/Ec) 81 mg PO QAM RF: 0 metoprolol tartrate 50 mg tablet 75 mg PO BID RF: 0 furosemide [Lasix] 20 mg tablet 20 mg PO BID RF: 0 Basaglar KwikPen U-100 Insulin 100 unit/mL (3 mL) insulin pen 60 unit SQ HS RF: 0 Alvesco 160 mcg/actuation HFA aerosol inhaler 1 - 2 puff inhalation QAM RF: 0 Discontinued calcium carbonate [Calcium 600] 600 mg calcium (1,500 mg) Tablet 600 mg PO BID RF: 0 cholecalciferol (vitamin D3) [Vitamin D3] 50 mcg (2,000 unit) Capsule 150 mcg PO BID RF: 0 No Action bupropion HCl 200 mg tablet sustained-release 12 hr 200 mg PO BID Qty: 180 RF: 3 Discharge Orders: Discharge Order (Routine); Ordered 09/28/20 Ordered By: Ade Hardy/Other Patient Handouts: A1C, High Blood Sugar (Hyperglycemia), Managing Type 2 Diabetes Admission Data Admit Date/Time: 09/26/20 19:40 Attending Provider: Cassidy Das Admit Provider: Duglas Ku Primary Care Provider: Ankita Tony Other Providers: Nitin Damico ; Justin Salgado Other Interventions: Discharge Summary Assessment (RN) Last Done: 09/28/20 17:44 Supervising Physician Co-Signing Physician Notes PA Supervision Note: I personally saw and examined the patient. I verified all patel points and agree with CLARE Blackman with the following exceptions and/or additions: S-patient feeling well, no complaints. Is tolerating p.o. O- Vitals reviewed Gen: AAOx3, NAD HEENT: Anicteric sclerae, EOMI CV: RRR no mgr nl S1S2 Pulm: CTAB no wcr Abd: +BS soft NT ND no masses or hernias Ext: No edema Skin: No rashes, warm/dry Neuro: Full strength throughout A/A-67-jlae-old female here with hypercalcemia, now improved with IV fluid hydration, discontinuation of vitamin D and calcium supplements which she will continue to abstain from. Follow-up closely with PCP with repeat labs Coding Level of Care Code D/C DAY MANAGEMENT >30 MINS Diagnoses Hypercalcemia E83.52 Vitamin D toxicity T45.2X1A Acute kidney injury N17.9 Asthma J45.909 Hypertension I10 Type 2 diabetes mellitus with insulin therapy E11.9; Z79.4 Statin intolerance Z78.9 Fatty liver K76.0 Anxiety and depression F41.9; F32.9 Chronic low back pain M54.5; G89.29 Hypomagnesemia E83.42 Hypophosphatemia E83.39
[2020-09-28 17:19] LABS: Albumin Level 3.2 gm/dl (3.4-5.0); BUN Creatinine Ratio 17.7 (10-20); Calcium 10.1 mg/dl (8.5-10.1); Creatinine Clr Calc Pharmacy 72.1 ml/min; Est GFR (African American) 59.9 ml/min; Est GFR (Non-African American) 51.7 ml/min; Potassium 3.9 mmol/L (3.5-5.1)
[2020-09-28 17:26] LABS: Magnesium 2.5 mg/dl (1.8-2.4); Phosphorus 2.7 mg/dl (2.5-4.9)
[2020-09-28] MEDS ORDERED: POT PHOSPHATE MONOBASIC W/ SOD TAB PO SCH (21:00)
[2020-10-01 13:26] LABS: Vitamin D 1,25 27 pg/mL (18-72); Vitamin D3,1,25 27 pg/mL
== END 2020-09-28 20:39 | disposition home or self-care (01) | DRG 918 ==
LOC: ED 15:01 → 2W 19:40 → SUATTDRO 19:40 → 2W 21:50
DX: J45.909 Unspecified asthma, uncomplicated; T47.1X1A Poisoning by other antacids and anti-gastric-secretion drugs, accidental (unintentional), initial encounter; Z79.82 Long term (current) use of aspirin; E11.9 Type 2 diabetes mellitus without complications; Z79.4 Long term (current) use of insulin; N17.9 Acute kidney failure, unspecified; R11.0 Nausea; T45.2X1A Poisoning by vitamins, accidental (unintentional), initial encounter; Z79.899 Other long term (current) drug therapy; M54.5 Low back pain; Z88.1 Allergy status to other antibiotic agents; F32.9 Major depressive disorder, single episode, unspecified; I48.0 Paroxysmal atrial fibrillation; Z91.040 Latex allergy status; Z88.2 Allergy status to sulfonamides; E83.42 Hypomagnesemia; N20.0 Calculus of kidney; E86.0 Dehydration; K76.0 Fatty (change of) liver, not elsewhere classified; Z88.5 Allergy status to narcotic agent; R60.0 Localized edema; K21.9 Gastro-esophageal reflux disease without esophagitis; E83.30 Disorder of phosphorus metabolism, unspecified; R51.9 Headache, unspecified; Z88.8 Allergy status to other drugs, medicaments and biological substances; E83.52 Hypercalcemia; B37.0 Candidal stomatitis; R42 Dizziness and giddiness; R13.10 Dysphagia, unspecified; I10 Essential (primary) hypertension; E78.2 Mixed hyperlipidemia; Z20.822 Contact with and (suspected) exposure to COVID-19; Z79.1 Long term (current) use of non-steroidal anti-inflammatories (NSAID); G89.29 Other chronic pain; E87.6 Hypokalemia; Z88.0 Allergy status to penicillin; F41.9 Anxiety disorder, unspecified; M71.21 Synovial cyst of popliteal space [Baker], right knee; Z79.51 Long term (current) use of inhaled steroids

== ENCOUNTER 2020-11-18 12:01 | Inpatient (IN) ==
[2020-11-18] MEDS ORDERED: SODIUM CHLORIDE 0.9% 500 ML IV STA (12:12)
[2020-11-18] MEDS ORDERED: ALBUTEROL 0.083% NEBU SOLN 3 ML VIAL NEB STA (12:12)
--- NOTE | 2020-11-18 12:21 | Emergency Department Note ---
Impression & Plan Pneumonia due to 2019 novel coronavirus, Hypoxia ED Provider Note NAME: KAREEM QUINTERO AGE: 55 SEX: F : 1965 ARRIVES VIA: Ambulance INFORMANT: Patient ED PROVIDER(S): Cesar Felton DO CHIEF COMPLAINT: Shortness of breath HPI: Patient is a 55-year-old female who presents the ER for shortness of breath which started a week ago. She does have a history of asthma. She has been using her inhalers and steroids and recently over the past 48 hours it has been getting worse. She was seen evaluated at an outside facility and was doing well until recently. She denies any fevers. No loss of taste or smell. No belly pain nausea, vomiting, or diarrhea with the exception of she is diffusely sore with coughing. No dysuria, urgency, or frequency. No other exacerbating or remitting factors. ROS: See above HPI for pertinent positives & negatives. A total of 10 systems reviewed and were otherwise negative. PAST MEDICAL HISTORY:See Below PAST SURGICAL HISTORY:See Below FAMILY HISTORY:See Below SOCIAL HISTORY:See Below HOME MEDICATIONS:See Below ALLERGIES:See Below VITALS:See Below PHYSICAL EXAMINATION: GENERAL: Sitting up in bed, alert, ill-appearing, dyspneic with conversation off oxygen EYE EXAM: normal conjunctiva. PERRL and EOM's grossly intact. OROPHARYNX: no exudate, no erythema, lips, buccal mucosa, and tongue normal and mucous membranes are moist NECK: supple, no nuchal rigidity, no adenopathy, non-tender LUNGS: Diffuse wheezing bilateral. Normal chest wall mechanics HEART: no murmurs, S1 normal and S2 normal ABDOMEN: abdomen soft, non-tender, normo-active bowel sounds, no masses, no rebound or guarding. UPPER EXTREMITIES: upper extremities are grossly normal. LOWER EXTREMITIES: No pitting edema. Calves are equal bilateral NEURO EXAM: Normal sensorium, cranial nerves II-XII grossly intact, normal speech, no gross weakness of arms, no gross weakness of legs. MEDICAL DECISION MAKING: Patient is a 55-year-old female brought in by EMS for shortness of breath which has been worsening over the past week. IV was established blood work was obtained. She was hypoxic at 75% and dyspneic with wheezing throughout. She does have a history of asthma. She was given hour-long neb treatment with the wheezing. Labs show no significant leukocytosis or anemia. INR was unremarkable. D-dimer was only mildly elevated at 660. Favor unlikely secondary to PE but rather secondary to Covid. Will defer to the hospitalist. BMP along with bilirubin LFTs was unremarkable. proBNP was normal at 78. Reginald morrison is Covid positive. Chest x-ray with bilateral infiltrates. She remained on 15 L and was switched to BiPAP while in the ER. She was already given steroids prior to arrival by EMS. Respiratory rate has improved and she was discussed with Dr. Ray Zaman and he evaluated her just prior to 2 PM and she will be admitted for further work-up. Triage Nursing notes reviewed. Limited review of prior medical records performed Vital Signs: reviewed and remarkable for no significant abnormalities Differential diagnosis: Reactive airway disease, pneumonia, pneumothorax, COPD, CHF, infections, cardiac ischemia, pulmonary embolism, musculoskeletal, gastrointestinal, as well as other pathologies. ER treatment provided: See below Diagnostics interpreted by me: ECG: Sinus tachycardia rate of 106 Normal axis No PVCs QTC 438 Cardiac Monitoring: An order was placed for continuous cardiac monitoring. The monitor shows a rate of 80 with sinus rhythm. Laboratory studies: As stated above and show below. Imaging studies: Chest x-ray with bilateral infiltrates and some cephalization Consultation(s): Discussed with Dr. Ray Zaman for further evaluation who saw and evaluate the patient just prior to 2 PM Procedures: none Critical Care: I have personally spent 45 minutes of critical care time in the direct management of this patient. This includes bedside care, interpretation of diagnostic studies, and testing, discussion with consultants, patient, and family members, and other required patient management activities. This 45 minutes is in excess of all separately billable procedures. Past Med/Surg History Medical History Anxiety and depression Asthma Atrial flutter, paroxysmal Chronic sinusitis Fatty liver GERD (gastroesophageal reflux disease) Grief reaction History of cardiac murmur Hydroureteronephrosis Hypercholesterolemia Kidney stones Left ureteral calculus Migraine headache Obesity Statin intolerance Type 2 diabetes mellitus with insulin therapy Surgical History H/O oral surgery History of cardioversion History of colonoscopy History of cystoscopy History of myringotomy History of tonsillectomy and adenoidectomy History of transesophageal echocardiography (DASIA) S/P section S/P hernia surgery S/P tonsillectomy S/P wisdom tooth extraction Status post laser lithotripsy of ureteral calculus Family History Aunt Colorectal cancer Grandfather (Maternal) Prostate cancer Mother , age 55 of Pseudomonas sepsis Lupus Raynaud's disease Father , age 85 Hypertension Clotting disorder Peptic ulcer disease Denies family history of Ovarian cancer Myocardial infarction Breast cancer Social History Smoking Status: Never smoker Second Hand Exposure: No; Hx Alcohol Use: Yes Alcohol type: wine and hard liquor Alcohol Intake Frequency Comment: Very rare use Hx Substance Use: No Preferred Language: Arabic Communication Ability: Effective Visual Impairment: No Limitations Hearing Ability: Normal Tanning Drum Operator Required: No Beliefs That Will Affect Care: None marital status: Current Living Situation: Spouse current occupational status: employed 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, 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 Feels Safe at Home: Yes Childhood Exposure to Second-Hand Smoke: No Dental Care, Regularly: Yes Physical Activity Frequency: Does not Exercise Seatbelt Use: always Sunscreen Use: No Assistive Devices: Contacts and Glasses Allergies Allergies Allergy/AdvReac Type Severity Reaction Status Date / Time codeine Allergy Intermediate SEVERE Verified 10/09/20 16:07 [From Tylenol-Codeine #3] MIGRAINES latex Allergy Intermediate LIPS Verified 10/09/20 16:07 SWELLING pravastatin Allergy Intermediate Hives Verified 10/09/20 16:07 simvastatin Allergy Intermediate Hives Verified 10/09/20 16:07 doxycycline Allergy Mild Rash Verified 10/09/20 16:07 erythromycin base Allergy Mild RASH Verified 10/09/20 16:07 Penicillins Allergy Mild RASH Verified 10/09/20 16:07 prednisone Allergy Mild RASH Verified 10/09/20 16:07 Sulfa (Sulfonamide Allergy Mild RASH Verified 10/09/20 16:07 Antibiotics) acetaminophen Allergy Unknown Verified 10/09/20 16:07 [From Tylenol-Codeine #3] empagliflozin AdvReac Mild Increase Verified 10/09/20 16:07 [From Jardiance] yeast infections and pt reporting worsening mood hydrocodone AdvReac Mild SEVERE GASTON Verified 10/09/20 16:07 Home Meds Home Medications Medication Instructions Recorded Confirmed fluticasone propionate 50 1 sprays INTNAS DAILY PRN 09/29/18 10/09/20 mcg/actuation nasal spray,suspension (Allergy Relief (fluticasone)) ascorbic acid (vitamin C) 1,000 mg 1 g PO BID 08/30/19 10/09/20 tablet cyanocobalamin (vitamin B-12) 2,500 mcg PO QAM 08/30/19 10/09/20 2,500 mcg tablet garlic 1,000 mg PO BID 08/30/19 10/09/20 potassium chloride See Rx Instructions .ROUTE .COMPLEX 02/23/20 10/09/20 aspirin 81 mg tablet,delayed 81 mg PO QAM 09/26/20 10/09/20 release (Aspirin Low Dose) ciclesonide 160 mcg/actuation 1 - 2 puff INHALATION QAM 09/26/20 10/09/20 aerosol inhaler (Alvesco) furosemide 20 mg tablet (Lasix) 20 mg PO BID 09/26/20 10/09/20 insulin glargine 100 unit/mL (3 60 unit SQ HS 09/26/20 10/09/20 mL) subcutaneous pen (Basaglar KwikPen U-100 Insulin) metoprolol tartrate 50 mg tablet 75 mg PO BID 09/26/20 10/09/20 Previous Rx's Medication Instructions Recorded lorazepam 0.5 mg tablet 0.5 mg PO DAILY PRN #30 tab 08/13/19 pen needle, diabetic 31 gauge x #100 ea 10/05/19 3/16" (BD Ultra-Fine Mini Pen Needle) lancets (Accu-Chek Fastclix Lancet #200 ea 10/13/19 Drum) ondansetron HCl 8 mg tablet 8 mg PO Q8H PRN #30 tab 11/25/19 sumatriptan succinate 100 mg See Rx Instructions PO .COMPLEX 11/25/19 tablet (Imitrex) #10 tab omeprazole 20 mg capsule,delayed 20 mg PO BID #60 cap 11/29/19 release levalbuterol tartrate 45 2 inh INH Q6H PRN #15 gm 01/26/20 mcg/actuation aerosol inhaler (Xopenex HFA) montelukast 10 mg tablet 10 mg PO QPM #90 tab 01/26/20 blood sugar diagnostic (Accu-Chek #200 ea 06/14/20 Guide test strips) semaglutide (Ozempic) 0.5 mg SUBCUT .COMPLEX #1.5 ml 06/20/20 diclofenac sodium 75 mg 75 mg PO BID PRN #60 tab 07/12/20 tablet,delayed release nystatin 100,000 unit/mL oral 500,000 unit BUCCAL QID 10 Days 08/23/20 suspension #200 ml metformin 500 mg tablet,extended 1,000 mg PO BID #360 tab 08/25/20 release 24hr diclofenac sodium 1 % topical gel 2 g EXT QID PRN #100 g 09/28/20 (Voltaren Arthritis Pain) docusate sodium 100 mg capsule 100 mg PO BID #10 cap 09/28/20 bupropion HCl 200 mg tablet,12 hr 200 mg PO BID #180 ea 10/05/20 sustained-release fluoxetine 20 mg capsule 20 mg PO QAM #30 cap 10/24/20 spironolactone 100 mg tablet 50 mg PO BID #90 tab 10/24/20 methylprednisolone 4 mg tablets in See Rx Instructions .ROUTE 11/16/20 a dose pack (Medrol (Gamaliel)) .COMPLEX #21 ea hydrocodone-homatropine 5 mg-1.5 5 ml PO Q6H PRN #40 ml 11/17/20 mg/5 mL oral syrup (Hydromet) Results & Data (ED) Vital Signs Vital Signs - 24 hr 11/18/20 11:39 11/18/20 13:41 Temperature 37.6 C Temperature Source Oral Pulse Rate 68 Pulse Rate [Right Finger] 87 Pulse Rhythm Regular Pulse Strength Normal Respiratory Rate 28 H 26 H Respiratory Effort / Characteristics Labored Spontaneous Respiratory Depth Normal Respiratory Pattern Tachypnea Blood Pressure 128/82 Blood Pressure Mean 97 Blood Pressure Position Lying Pulse Oximetry 91 91 Oxygen Delivery Method Aerosol Mask Oxymask Oxygen Flow Rate 15 15 Sepsis Recent Fever Within 48 Hours No Sepsis New/Unexplained Change in Mental Status No Sepsis Action Taken by Nursing No Action Required Laboratory Data Result diagrams: 11/18/20 12:25 11/18/20 12:25 Lab Results 11/18/20 11/18/20 11/18/20 Range/Units 12:10 12:25 12:25 WBC 8.37 (4.8-10.8) K/uL RBC 4.54 (4.2-5.4) M/uL Hgb 13.6 (12.0-16.0) g/dL Hct 40.6 (37-47) % MCV 89.4 (80-100) fL MCH 30.0 (25-34) pg MCHC 33.5 (32-36) g/dL RDW Std Deviation 48.9 H (36.4-46.3) fL RDW Coeff of Sheridan 14.9 H (11.5-14.5) % Plt Count 215 (130-400) K/uL MPV 9.2 (7.4-10.4) fL Immature Gran % (Auto) 0.5 % Neut % (Auto) 78.6 % Lymph % (Auto) 15.3 % Hill % (Auto) 5.6 % Eos % (Auto) 0.0 % Baso % (Auto) 0.0 % Neut # (Auto) 6.58 H (1.4-6.5) K/uL Lymph # (Auto) 1.28 (1.2-3.4) K/uL Hill # (Auto) 0.47 (0.11-0.59) K/uL Eos # (Auto) 0.00 (0-0.5) K/uL Baso # (Auto) 0.00 (0-0.2) K/uL Immature Gran # (Auto) 0.04 H (0.00-0.02) K/uL PT 10.3 (9.0-12.0) Seconds INR 1.0 (0.9-1.1) APTT 25.3 (21.0-31.0) Seconds PTT Ratio 1.0 D-Dimer 660 H* (0-500) ug/L FEU Sodium (136-145) mmol/L Potassium (3.5-5.1) mmol/L Chloride (98-107) mmol/L Carbon Dioxide (21-32) mmol/L Anion Gap (3-11) BUN (7-18) mg/dl Creatinine (0.6-1.2) mg/dl Est Cr Clr Drug Dosing ml/min Est GFR ( Amer) ml/min Est GFR (Non-Af Amer) ml/min BUN/Creatinine Ratio (10-20) Glucose (70-99) mg/dl Calcium (8.5-10.1) mg/dl Total Bilirubin (0.2-1) mg/dl AST (15-37) U/L ALT (12-78) U/L Alkaline Phosphatase (45-117) U/L Troponin I (0-0.045) ng/ml Total Protein (6.4-8.2) gm/dl Albumin (3.4-5.0) gm/dl Globulin (2.5-4.0) gm/dl Albumin/Globulin Ratio (0.9-2) Lipase (73-393) U/L COVID-19 Eval Order Covid19 at [facility] 11/18/20 Range/Units 12:25 WBC (4.8-10.8) K/uL RBC (4.2-5.4) M/uL Hgb (12.0-16.0) g/dL Hct (37-47) % MCV (80-100) fL MCH (25-34) pg MCHC (32-36) g/dL RDW Std Deviation (36.4-46.3) fL RDW Coeff of Sheridan (11.5-14.5) % Plt Count (130-400) K/uL MPV (7.4-10.4) fL Immature Gran % (Auto) % Neut % (Auto) % Lymph % (Auto) % Hill % (Auto) % Eos % (Auto) % Baso % (Auto) % Neut # (Auto) (1.4-6.5) K/uL Lymph # (Auto) (1.2-3.4) K/uL Hill # (Auto) (0.11-0.59) K/uL Eos # (Auto) (0-0.5) K/uL Baso # (Auto) (0-0.2) K/uL Immature Gran # (Auto) (0.00-0.02) K/uL PT (9.0-12.0) Seconds INR (0.9-1.1) APTT (21.0-31.0) Seconds PTT Ratio D-Dimer (0-500) ug/L FEU Sodium 137 (136-145) mmol/L Potassium 3.5 (3.5-5.1) mmol/L Chloride 104 (98-107) mmol/L Carbon Dioxide 23 (21-32) mmol/L Anion Gap 10.0 (3-11) BUN 11 (7-18) mg/dl Creatinine 0.83 (0.6-1.2) mg/dl Est Cr Clr Drug Dosing 96.1 ml/min Est GFR ( Amer) 92.7 ml/min Est GFR (Non-Af Amer) 79.9 ml/min BUN/Creatinine Ratio 12.8 (10-20) Glucose 139 H (70-99) mg/dl Calcium 9.4 (8.5-10.1) mg/dl Total Bilirubin 0.3 (0.2-1) mg/dl AST 32 (15-37) U/L ALT 26 (12-78) U/L Alkaline Phosphatase 81 (45-117) U/L Troponin I < 0.015 (0-0.045) ng/ml Total Protein 8.1 (6.4-8.2) gm/dl Albumin 3.0 L (3.4-5.0) gm/dl Globulin 5.1 H (2.5-4.0) gm/dl Albumin/Globulin Ratio 0.6 L (0.9-2) Lipase 238 (73-393) U/L COVID-19 Eval Order Administered Medications Discontinued Medications Albuterol (Albuterol 0.083% Nebu Soln 3 Ml Vial) 10 mg NEB NOW STA Stop: 11/18/20 12:13 Last Admin: 11/18/20 12:28 Dose: 10 mg Documented by: [id number] Sodium Chloride (Nss) 500 mls @ 999 mls/hr IV .Q31M STA Stop: 11/18/20 12:42 Last Admin: 11/18/20 13:01 Dose: 999 mls/hr Documented by: [id number] Imaging Data Radiologist's Impression: Chest X-Ray 11/18/20 12:12 XR chest 1V portable INDICATION: MN ^Y ^Chest Pain . TECHNIQUE: Single frontal radiograph of the chest was obtained. Comparison: None available at the time of this dictation. FINDINGS: No lines and tubes are seen. The cardiomediastinal silhouette is obscured. Bilateral lower lung predominant airspace opacities are seen. Possible bilateral layering pleural effusions. IMPRESSION: Bilateral airspace opacities may represent atelectasis, pneumonia, and/or aspiration. Possible bilateral pleural effusions. ACT 112: Negative or not required by law. Electronically signed by: Jose Daniel Beckford M.D. 11/18/2020 1:00 PM Discharge Plan Visit Data Chief Complaint: Illness Stated Complaint: COUGH ED Provider: Cesar Felton Discharge Problem: Pneumonia due to 2019 novel coronavirus, Hypoxia Forms Stand Alone Forms: My [facility] Prescriptions Prescriptions: No Action (DME) pen needle, diabetic [BD Ultra-Fine Mini Pen Needle] 31 gauge x 3/16" needle See Dose Instructions .ROUTE .MEDSUPPLY Qty: 100 RF: 3 (DME) lancets [Accu-Chek Fastclix Lancet Drum] Misc See Dose Instructions .ROUTE .MEDSUPPLY Qty: 200 RF: 5 omeprazole 20 mg capsule,delayed release(DR/EC) 20 mg PO BID Qty: 60 RF: 5 (DME) Accu-Chek Guide test strips Strip See Rx Instructions .ROUTE .MEDSUPPLY Qty: 200 RF: 5 Ozempic 0.25 mg or 0.5 mg(2 mg/1.5 mL) pen injector 0.5 mg subcut .COMPLEX Qty: 1.5 RF: 5 nystatin 100,000 unit/mL suspension 500,000 unit buccal QID 10 Days Qty: 200 RF: 11 metformin 500 mg tablet extended release 24hr 1,000 mg PO BID Qty: 360 RF: 3 bupropion HCl 200 mg tablet sustained-release 12 hr 200 mg PO BID Qty: 180 RF: 3 spironolactone 100 mg tablet 50 mg PO BID Qty: 90 RF: 3 fluoxetine 20 mg capsule 20 mg PO QAM Qty: 30 RF: 5 hydrocodone-homatropine [Hydromet] 5-1.5 mg/5 mL syrup 5 ml PO Q6H PRN (Reason: Cough) Qty: 40 RF: 0 fluticasone propionate [Allergy Relief (fluticasone)] 50 mcg/actuation spray,suspension 1 sprays INTNAS DAILY PRN (Reason: ALLERGIES) RF: 0 diclofenac sodium 75 mg tablet,delayed release (DR/EC) 75 mg PO BID PRN (Reason: pain) Qty: 60 RF: 1 potassium chloride See Rx Instructions .ROUTE .COMPLEX RF: 0 methylprednisolone [Medrol (Gamaliel)] 4 mg tablets,dose pack See Rx Instructions .ROUTE .COMPLEX Qty: 21 RF: 0 sumatriptan succinate [Imitrex] 100 mg tablet See Rx Instructions PO .COMPLEX Qty: 10 RF: 5 ondansetron HCl 8 mg tablet 8 mg PO Q8H PRN (Reason: nausea and vomiting) Qty: 30 RF: 1 levalbuterol tartrate [Xopenex HFA] 45 mcg/actuation HFA aerosol inhaler 2 inh INH Q6H PRN (Reason: shortness of breath or wheezing) Qty: 15 RF: 3 montelukast 10 mg tablet 10 mg PO QPM Qty: 90 RF: 3 lorazepam 0.5 mg tablet 0.5 mg PO DAILY PRN (Reason: anxiety) Qty: 30 RF: 0 ascorbic acid (vitamin C) 1,000 mg Tablet 1 g PO BID RF: 0 garlic Tablet 1,000 mg PO BID RF: 0 cyanocobalamin (vitamin B-12) 2,500 mcg Tablet 2,500 mcg PO QAM RF: 0 aspirin [Aspirin Low Dose] 81 mg Tablet,Delayed Release (Dr/Ec) 81 mg PO QAM RF: 0 metoprolol tartrate 50 mg tablet 75 mg PO BID RF: 0 furosemide [Lasix] 20 mg tablet 20 mg PO BID RF: 0 Basaglar KwikPen U-100 Insulin 100 unit/mL (3 mL) insulin pen 60 unit SQ HS RF: 0 Alvesco 160 mcg/actuation HFA aerosol inhaler 1 - 2 puff inhalation QAM RF: 0 diclofenac sodium [Voltaren Arthritis Pain] 1 % Gel 2 g EXT QID PRN (Reason: pain) Qty: 100 RF: 0 docusate sodium 100 mg Capsule 100 mg PO BID Qty: 10 RF: 0 Referrals Referrals: Ankita Tony MD [Primary Care Provider] -
[2020-11-18 12:40] LABS: Hematocrit (blood only) 40.6 % (37-47); Hemoglobin 13.6 g/dL (12.0-16.0); Immature Granulocytes # (auto) 0.04 K/uL (0.00-0.02); Immature Granulocytes % (auto) 0.5 %; Lymphocytes # (auto) 1.28 K/uL (1.2-3.4); Lymphocytes % (auto) 15.3 %; Mean Corpuscular Hgb Conc 33.5 g/dL (32-36); Mean Corpuscular Volume 89.4 fL (80-100); Mean Platelet Volume 9.2 fL (7.4-10.4); Monocytes # (auto) 0.47 K/uL (0.11-0.59); Monocytes % (auto) 5.6 %; Neutrophils # (auto) 6.58 K/uL (1.4-6.5); Neutrophils % (auto) 78.6 %; Platelet Count 215 K/uL (130-400); RDW Coefficient of Variation 14.9 % (11.5-14.5); RDW Standard Deviation 48.9 fL (36.4-46.3); Red Blood Count 4.54 M/uL (4.2-5.4); White Blood Count 8.37 K/uL (4.8-10.8)
[2020-11-18 12:59] LABS: Alanine Aminotransferase 26 U/L (12-78); Aspartate Aminotransferase 32 U/L (15-37); BUN Creatinine Ratio 12.8 (10-20); Blood Urea Nitrogen 11 mg/dl (7-18); Calcium 9.4 mg/dl (8.5-10.1); Carbon Dioxide 23 mmol/L (21-32); Chloride 104 mmol/L (98-107); Creatinine Clr Calc Pharmacy 96.1 ml/min; Est GFR (African American) 92.7 ml/min; Est GFR (Non-African American) 79.9 ml/min; Glucose 139 mg/dl (70-99); Lipase 238 U/L (73-393); Potassium 3.5 mmol/L (3.5-5.1); Sodium 137 mmol/L (136-145)
--- NOTE | 2020-11-18 13:01 | XRay Report ---
XR chest 1V portable INDICATION: MN ^Y ^Chest Pain . TECHNIQUE: Single frontal radiograph of the chest was obtained. Comparison: None available at the time of this dictation. FINDINGS: No lines and tubes are seen. The cardiomediastinal silhouette is obscured. Bilateral lower lung predo minant airspace opacities are seen. Possible bilateral layering pleural effusions. IMPRESSION: Bilateral airspace opacities may represent atelectasis, pneumonia, and/or aspiration. Possible bilate ral pleural effusions. ACT 112: Negative or not required by law. Electronically signed by: Jose Daniel Beckford M.D. 11/18/2020 1:00 PM
[2020-11-18 13:02] LABS: Partial Thromboplastin Time 25.3 Seconds (21.0-31.0); Prothrombin Time 10.3 Seconds (9.0-12.0)
[2020-11-18 13:04] LABS: Albumin Globulin Ratio 0.6 (0.9-2); Alkaline Phosphatase 81 U/L (45-117); Bilirubin,Total 0.3 mg/dl (0.2-1); Globulin 5.1 gm/dl (2.5-4.0); Total Protein 8.1 gm/dl (6.4-8.2); Troponin I < 0.015 ng/ml (0-0.045)
[2020-11-18 13:08] LABS: D Dimer 660 ug/L FEU (0-500)
--- NOTE | 2020-11-18 13:23 | History & Physical Report ---
Date of Service November 18, 2020 Assessment & Plan (1) Pneumonia due to 2019 novel coronavirus: Plan: Solu-medrol 125mg IV given by EMS, start dexamethasone 6mg IV tomorrow As she is on BiPAP already would not recommend remdesivir and patient refuses this regardless Start baricitinib per pulmonology recommendations Trend CRP NPO given current respiratory status, SLT assessment due to Hx aspiration noted by patient once able to eat and drink (2) Acute respiratory failure with hypoxia: Plan: Initial ABG taken on oxymask, no CO2 retention Doing much better on BiPAP and will continue on this for now. Switch to high flow for breaks off BiPAP as necessary At high risk of needing intubation which we discussed and she would want intubation and CPR int he event of respiratory and/or cardiac arrest (3) Asthma: Plan: Continue Alvesco 2 puff BID or hospital formulary equivalent. No wheezing on exam but reportedly wheezing by EMS. Duonebs PRN, consider GIANNA if she are helping her (4) Obesity: (5) Type 2 diabetes mellitus with insulin therapy: Plan: HbA1C 6.3 in September. Consult pharmacy for glycemic control in setting of steroid use. (6) Hypertension: Plan: No known CHF but she is on spironolactone and Lasix. Will give 40mg IV Lasix now and continue to dose depending on I&Os to promote negative balance Continue spironolactone Continue metoprolol with hold parameters (7) Atrial flutter, paroxysmal: Plan: Remote history of this supposedly after ?after COPD instead of asthma treatment per patient. s/p ablation 2009. Monitor on telemetry for recurrence. Plan: VTE Prophylaxis - Lovenox 40mg SQ BID Diet - NPO Disposition - admit to PCU/COVID [facility]oney History of Present Illness Chief Complaint: COVID-19 symptoms Primary Care Provider: Ankita Tony MD Rosalie Mccormack is a 55 year old female who presents to the ER with shortness of breath and hypoxia. She is unvaccinated for COVID. Symptoms started on November 11. She is currently on day 9 of the illness. Initial symptoms of a cold with headache. She took Friday off work but reportedly her boss was mad so she did go to work from Friday to this week. She thought she had an asthma exacerbation so started on a medrol dosepak that she had for emergencies from the beginning of the illness. Symptoms include: shortness of breath, non- productive cough, headache, diarrhea, nausea/vomiting on off all week, fatigue, confusion, chest tightness. She has chronic myalgias from hip OA and lower back and left radiculopathy. She denies any fever, chills, loss of taste or smell or nasal congestion. She saw her PCP on November 16 and COVID was suspect and test ordered but she did not want to get it. Due to her reduced appetite she has not taken her medication for the last day including her diuretics. In the ER CXR showed bilateral ilfiltrates consistent with COVID-19 pneumonia and SARS-COV-2 PCR positive. She was desaturating to 85% on 15LPM O2 oxymask when seen and subsequently changed to BiPAP. She was referred to medicine for admission and ongoing management of COVID-19 pneumonia. Allergies Allergy/AdvReac Type Severity Reaction Status Date / Time codeine Allergy Intermediate SEVERE Verified 11/18/20 16:22 [From Tylenol-Codeine #3] MIGRAINES latex Allergy Intermediate LIPS Verified 11/18/20 16:22 SWELLING pravastatin Allergy Intermediate Hives Verified 11/18/20 16:22 simvastatin Allergy Intermediate Hives Verified 11/18/20 16:22 doxycycline Allergy Mild Rash Verified 11/18/20 16:22 erythromycin base Allergy Mild RASH Verified 11/18/20 16:22 Penicillins Allergy Mild RASH Verified 11/18/20 16:22 prednisone Allergy Mild RASH Verified 11/18/20 16:22 Sulfa (Sulfonamide Allergy Mild RASH Verified 11/18/20 16:22 Antibiotics) acetaminophen Allergy Unknown Verified 11/18/20 16:22 [From Tylenol-Codeine #3] empagliflozin AdvReac Mild Increase Verified 11/18/20 16:22 [From Jardiance] yeast infections and pt reporting worsening mood hydrocodone AdvReac Mild SEVERE GASTON Verified 11/18/20 16:22 Home Medications Medication Instructions Recorded Confirmed Type fluticasone propionate 50 1 sprays INTNAS DAILY PRN 09/29/18 11/18/20 History mcg/actuation nasal spray,suspension (Allergy Relief (fluticasone)) lorazepam 0.5 mg tablet 0.5 mg PO DAILY PRN #30 tab 08/13/19 11/18/20 Rx ascorbic acid (vitamin C) 1,000 mg 1 g PO BID 08/30/19 11/18/20 History tablet cyanocobalamin (vitamin B-12) 2,500 mcg PO QAM 08/30/19 11/18/20 History 2,500 mcg tablet garlic 1,000 mg PO BID 08/30/19 11/18/20 History ondansetron HCl 8 mg tablet 8 mg PO Q8H PRN #30 tab 11/25/19 11/18/20 Rx sumatriptan succinate 100 mg See Rx Instructions PO .COMPLEX 11/25/19 11/18/20 Rx tablet (Imitrex) #10 tab omeprazole 20 mg capsule,delayed 20 mg PO BID #60 cap 11/29/19 11/18/20 Rx release levalbuterol tartrate 45 2 inh INH Q6H PRN #15 gm 01/26/20 11/18/20 Rx mcg/actuation aerosol inhaler (Xopenex HFA) montelukast 10 mg tablet 10 mg PO QPM #90 tab 01/26/20 11/18/20 Rx potassium chloride 297 mg PO BID 02/23/20 10/09/20 History semaglutide (Ozempic) 0.5 mg SUBCUT .COMPLEX #1.5 ml 06/20/20 11/18/20 Rx nystatin 100,000 unit/mL oral 500,000 unit BUCCAL QID 10 Days 08/23/20 11/18/20 Rx suspension #200 ml metformin 500 mg tablet,extended 1,000 mg PO BID #360 tab 08/25/20 11/18/20 Rx release 24hr aspirin 81 mg tablet,delayed 81 mg PO QAM 09/26/20 11/18/20 History release (Aspirin Low Dose) ciclesonide 160 mcg/actuation 1 - 2 puff INHALATION QAM 09/26/20 11/18/20 History aerosol inhaler (Alvesco) furosemide 20 mg tablet (Lasix) 20 mg PO BID 09/26/20 11/18/20 History insulin glargine 100 unit/mL (3 65 unit SQ HS 09/26/20 11/18/20 History mL) subcutaneous pen (Basaglar KwikPen U-100 Insulin) metoprolol tartrate 50 mg tablet 75 mg PO BID 09/26/20 11/18/20 History docusate sodium 100 mg capsule 100 mg PO BID #10 cap 09/28/20 11/18/20 Rx bupropion HCl 200 mg tablet,12 hr 200 mg PO BID #180 ea 10/05/20 11/18/20 Rx sustained-release spironolactone 100 mg tablet 50 mg PO BID #90 tab 10/24/20 11/18/20 Rx methylprednisolone 4 mg tablets in See Rx Instructions .ROUTE 11/16/20 11/18/20 Rx a dose pack (Medrol (Gamaliel)) .COMPLEX #21 ea calcium carbonate 500 mg (1,250 1 tab PO BID 11/18/20 11/18/20 History mg)-vitamin D3 125 unit tablet empagliflozin 10 mg tablet 10 mg PO DAILY 11/18/20 11/18/20 History (Jardiance) glimepiride 4 mg tablet 4 mg PO DAILY 11/18/20 11/18/20 History ibuprofen 200 mg tablet 200 mg PO DAILY PRN 11/18/20 11/18/20 History Past Med/Surg History Medical History Anxiety and depression Asthma Atrial flutter, paroxysmal Chronic sinusitis Fatty liver GERD (gastroesophageal reflux disease) Grief reaction History of cardiac murmur Hydroureteronephrosis Hypercholesterolemia Kidney stones Left ureteral calculus Migraine headache Obesity Statin intolerance Type 2 diabetes mellitus with insulin therapy Surgical History H/O oral surgery History of cardioversion History of colonoscopy History of cystoscopy History of myringotomy History of tonsillectomy and adenoidectomy History of transesophageal echocardiography (DASIA) S/P section S/P hernia surgery S/P tonsillectomy S/P wisdom tooth extraction Status post laser lithotripsy of ureteral calculus Family History Aunt Colorectal cancer Grandfather (Maternal) Prostate cancer Mother , age 55 of Pseudomonas sepsis Lupus Raynaud's disease Father , age 85 Hypertension Clotting disorder Peptic ulcer disease Denies family history of Ovarian cancer Myocardial infarction Breast cancer Social History Smoking Status: Never smoker Second Hand Exposure: No; Hx Alcohol Use: No (very rare) Hx Substance Use: No Preferred Language: Polish Communication Ability: Effective Visual Impairment: No Limitations Hearing Ability: Normal Defensive Line Coach Required: No Beliefs That Will Affect Care: None marital status: Current Living Situation: Family current occupational status: employed 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, 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 Other Information That Helps Us Care for You: No Feels Safe at Home: Yes Safety Concerns: Feels Safe At This Time Childhood Exposure to Second-Hand Smoke: No Dental Care, Regularly: Yes Physical Activity Frequency: Does not Exercise Seatbelt Use: always Sunscreen Use: No Assistive Devices: Glasses Review of Systems Review of Systems: All systems reviewed & are unremarkable except as noted in HPI & below Prior issues with aspirations noted Physical Exam Constitutional: well developed, + acute distress (respiratory) and + obese; + not well nourished Eyes: + anicteric sclerae; normal pupil size ENMT: external ear and nose normal, oropharynx normal Neck: trachea midline, no thyromegaly Respiratory: + respiratory distress, + labored breathing, + retractions, + uses accessory muscles and + cough; + abnormal respiratory effort and + not able to speak in complete sentence Auscultation: + diminished lung sounds (b/l) and + crackles (mild fine throughout); no rales, no rhonchi and no wheezes Cardiovascular: Rate/Rhythm: regular rhythm and + tachycardic Heart Sounds: no murmur Vessels: posterior tibial pulses present, dorsalis pedis pulses present and radial pulses present; no JVD Extremities: normal capillary refill; no calf tenderness and no pedal edema Gastrointestinal (Abdomen): normal bowel sounds, soft, nontender, no hepatosplenomegaly Musculoskeletal: no cyanosis or clubbing, extremities motor strength 5/5 Skin: no rashes, warm and dry Neurologic: moves all extremities and awake; no focal motor deficits and not confused Psychiatric: Orientation: alert and oriented x 3 Affect: + anxious affect Results & Data Results & Data ([facility]) Vital Signs (Past 12 Hours) Vital Signs Temp Pulse Resp BP Pulse Ox 11/18/20 11:39 37.6 C 68 28 H 128/82 91 Diagnostic Findings XR chest 1V portable INDICATION: MN ^Y ^Chest Pain TECHNIQUE: Single frontal radiograph of the chest was obtained. Comparison: None available at the time of this dictation. FINDINGS: No lines and tubes are seen. The cardiomediastinal silhouette is obscured. Bi lateral lower lung predominant airspace opacities are seen. Possible bilateral layering pleural effusions. IMPRESSION: Bilateral airspace opacities may represent atelectasis, pneumonia, and/or aspira tion. Possible bilateral pleural effusions. Medications Administered ER Medications Given: NSS 500ml bolus Albuterol 10mg NEB ECG Indication: SOB/dyspnea Rate (beats per minute): 106 Rhythm: sinus tachycardia Findings: + other (TW flattening in anterior leads) Comparison ECG Date: from (August 04, 2020) Change: the following changes noted (T wave flattening is new) Code Status & VTE Plan Code Status Full VTE Prophylaxis Plan VTE Prophylaxis will be ordered: Yes PG Care Time/CCT Total # of Minutes Spent Total Time Spent with Patient: Total time spent is greater than 50% in coordination of care (as documented) at patient's floor/unit and/or counseling patient: Coding Level of Care Code 00746 Initial Inpt Care Lvl 3 Diagnoses Acute respiratory failure with hypoxia J96.01 Pneumonia due to 2019 novel coronavirus U07.1; J12.82 Asthma J45.909 Obesity E66.9 Atrial flutter, paroxysmal I48.92 Type 2 diabetes mellitus with insulin therapy E11.9; Z79.4 Hypertension I10
[2020-11-18] MEDS ORDERED: POTASSIUM CHLORIDE CRTAB 20 MEQ TABCR PO STA (13:33)
[2020-11-18] MEDS ORDERED: ACETAMINOPHEN 500 MG TAB PO STA (13:49)
[2020-11-18] MEDS ORDERED: FUROSEMIDE 40 MG/4 ML VIAL IV STA (13:50)
[2020-11-18 13:56] LABS: C Reactive Protein 9.08 mg/dl (0-0.29)
[2020-11-18] MEDS ORDERED: BUMETANIDE 2 MG in SYRINGE 0 ML IV ONE (14:00)
[2020-11-18 14:10] LABS: Base Excess ABG -2.6 mEq/L (-9-1.8); HCO3 ABG 20 mmol/L (19-24); PCO2 ABG 28 mmHg (35-46); PO2 ABG 52 mmHg (80-95); pH ABG 7.46 (7.35-7.45)
[2020-11-18 14:17] LABS: Allen Test Pos (Pos)
[2020-11-18 14:18] LABS: Oxygen Saturation ABG 88.8 % (90-95)
--- NOTE | 2020-11-18 14:24 | Pulmonary Consultation ---
Date of Consultation November 18, 2020 Assessment & Plan (1) Pneumonia due to 2019 novel coronavirus: (2) Acute respiratory failure with hypoxia: (3) Morbid obesity: (4) Asthma: Chest x-ray 11/18/20 personally reviewed: Portable film, bilateral alveolar opacities appreciated bilaterally, bilateral costophrenic angles are blunted Increased cardiac silhouette --Acute hypoxic respiratory failure Secondary to multilobar COVID-19 pneumonia COVID-19 PCR positive CRP 8.8 Procalcitonin 0.14 BNP 74 Continue with O2 supplementation to keep oxygen saturation between 90-92%. Awake proning will be helpful Continue with incentive spirometry Continue with flutter valve. Recommend patient to be kept euvolemic to negative balance --Morbid obesity with probable JIMY Continue with BiPAP/CPAP nightly and as needed shortness of breath --History of anxiety Continue with bupropion She takes Ativan at home as well Would be careful giving her any Ativan. Plan: We will start the patient on baricitinib on a daily basis Continue with dexamethasone for total of 10 days Patient refusing remdesivir. Lovenox for DVT prophylaxis Awake proning will be beneficial for the patient I have personally spent 55 minutes of critical care time in the direct management of this patient. This is a life/limb threatening event. This includes time spent evaluating patient, direct bedside care, chart review, placing orders, interpretation of diagnostic studies, discussion with consultants, patient, and family members, as well as other required patient management activities. This time is exclusive of all separately billable procedures, and teaching time and separate from and in addition to any other critical care service time. Please note the above document was generated using voice recognition software. It may contain grammatical, syntax or spelling errors. History of Present Illness History of Present Illness 55-year-old female past medical history of hypertension, history of asthma, diastolic CHF, morbid obesity presented to the hospital with complaints of shortness of breath chest tightness. In the ED patient was found to be COVID-19 positive with chest x-ray showing diffuse alveolar infiltrates. Pulmonary consulted for patient requiring high flow oxygen. At the time of examination patient was on 60 L 70% high flow. Patient was saturating 94-95% while proning She states she is feeling better compared to when she came to the hospital Denies any chest pain No headache, no nausea, no vomiting. She does have history of anxiety. She had gotten 0.5 mg of Ativan IV. She takes 0.5 mg of Ativan on as-needed basis at home as well. She did use BiPAP but was not fond of it. No dysuria, no diarrhea. Patient is not vaccinated Social history: Non-smoker No birds or poultry nearby Allergies Allergy/AdvReac Type Severity Reaction Status Date / Time codeine Allergy Intermediate SEVERE Verified 11/18/20 16:22 [From Tylenol-Codeine #3] MIGRAINES latex Allergy Intermediate LIPS Verified 11/18/20 16:22 SWELLING pravastatin Allergy Intermediate Hives Verified 11/18/20 16:22 simvastatin Allergy Intermediate Hives Verified 11/18/20 16:22 doxycycline Allergy Mild Rash Verified 11/18/20 16:22 erythromycin base Allergy Mild RASH Verified 11/18/20 16:22 Penicillins Allergy Mild RASH Verified 11/18/20 16:22 prednisone Allergy Mild RASH Verified 11/18/20 16:22 Sulfa (Sulfonamide Allergy Mild RASH Verified 11/18/20 16:22 Antibiotics) acetaminophen Allergy Unknown Verified 11/18/20 16:22 [From Tylenol-Codeine #3] empagliflozin AdvReac Mild Increase Verified 11/18/20 16:22 [From Jardiance] yeast infections and pt reporting worsening mood hydrocodone AdvReac Mild SEVERE GASTON Verified 11/18/20 16:22 Home Medications Medication Instructions Recorded Confirmed Type fluticasone propionate 50 1 sprays INTNAS DAILY PRN 09/29/18 11/18/20 History mcg/actuation nasal spray,suspension (Allergy Relief (fluticasone)) lorazepam 0.5 mg tablet 0.5 mg PO DAILY PRN #30 tab 08/13/19 11/18/20 Rx ascorbic acid (vitamin C) 1,000 mg 1 g PO BID 08/30/19 11/18/20 History tablet cyanocobalamin (vitamin B-12) 2,500 mcg PO QAM 08/30/19 11/18/20 History 2,500 mcg tablet garlic 1,000 mg PO BID 08/30/19 11/18/20 History ondansetron HCl 8 mg tablet 8 mg PO Q8H PRN #30 tab 11/25/19 11/18/20 Rx sumatriptan succinate 100 mg See Rx Instructions PO .COMPLEX 11/25/19 11/18/20 R x tablet (Imitrex) #10 tab omeprazole 20 mg capsule,delayed 20 mg PO BID #60 cap 11/29/19 11/18/20 Rx release levalbuterol tartrate 45 2 inh INH Q6H PRN #15 gm 01/26/20 11/18/20 Rx mcg/actuation aerosol inhaler (Xopenex HFA) montelukast 10 mg tablet 10 mg PO QPM #90 tab 01/26/20 11/18/20 Rx potassium chloride 297 mg PO BID 02/23/20 10/09/20 History semaglutide (Ozempic) 0.5 mg SUBCUT .COMPLEX #1.5 ml 06/20/20 11/18/20 Rx nystatin 100,000 unit/mL oral 500,000 unit BUCCAL QID 10 Days 08/23/20 11/18/20 Rx suspension #200 ml metformin 500 mg tablet,extended 1,000 mg PO BID #360 tab 08/25/20 11/18/20 Rx release 24hr aspirin 81 mg tablet,delayed 81 mg PO QAM 09/26/20 11/18/20 History release (Aspirin Low Dose) ciclesonide 160 mcg/actuation 1 - 2 puff INHALATION QAM 09/26/20 11/18/20 History aerosol inhaler (Alvesco) furosemide 20 mg tablet (Lasix) 20 mg PO BID 09/26/20 11/18/20 History insulin glargine 100 unit/mL (3 65 unit SQ HS 09/26/20 11/18/20 History mL) subcutaneous pen (Basaglar KwikPen U-100 Insulin) metoprolol tartrate 50 mg tablet 75 mg PO BID 09/26/20 11/18/20 History docusate sodium 100 mg capsule 100 mg PO BID #10 cap 09/28/20 11/18/20 Rx bupropion HCl 200 mg tablet,12 hr 200 mg PO BID #180 ea 10/05/20 11/18/20 Rx sustained-release spironolactone 100 mg tablet 50 mg PO BID #90 tab 10/24/20 11/18/20 Rx methylprednisolone 4 mg tablets in See Rx Instructions .ROUTE 11/16/20 11/18/20 Rx a dose pack (Medrol (Gamaliel)) .COMPLEX #21 ea calcium carbonate 500 mg (1,250 1 tab PO BID 11/18/20 11/18/20 History mg)-vitamin D3 125 unit tablet empagliflozin 10 mg tablet 10 mg PO DAILY 11/18/20 11/18/20 History (Jardiance) glimepiride 4 mg tablet 4 mg PO DAILY 11/18/20 11/18/20 History ibuprofen 200 mg tablet 200 mg PO DAILY PRN 11/18/20 11/18/20 History Patient History Medical History Anxiety and depression Asthma Atrial flutter, paroxysmal Chronic sinusitis Fatty liver GERD (gastroesophageal reflux disease) Grief reaction History of cardiac murmur Hydroureteronephrosis Hypercholesterolemia Kidney stones Left ureteral calculus Migraine headache Obesity Statin intolerance Type 2 diabetes mellitus with insulin therapy Surgical History H/O oral surgery History of cardioversion History of colonoscopy History of cystoscopy History of myringotomy History of tonsillectomy and adenoidectomy History of transesophageal echocardiography (DASIA) S/P section S/P hernia surgery S/P tonsillectomy S/P wisdom tooth extraction Status post laser lithotripsy of ureteral calculus Family History Aunt Colorectal cancer Grandfather (Maternal) Prostate cancer Mother , age 55 of Pseudomonas sepsis Lupus Raynaud's disease Father , age 85 Hypertension Clotting disorder Peptic ulcer disease Denies family history of Ovarian cancer Myocardial infarction Breast cancer Social History Smoking Status: Never smoker Second Hand Exposure: No; Hx Alcohol Use: No (very rare) Hx Substance Use: No Preferred Language: Luxembourger Communication Ability: Effective Visual Impairment: No Limitations Hearing Ability: Normal Tiler Required: No Beliefs That Will Affect Care: None marital status: Current Living Situation: Family current occupational status: employed 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, 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 Other Information That Helps Us Care for You: No Feels Safe at Home: Yes Safety Concerns: Feels Safe At This Time Childhood Exposure to Second-Hand Smoke: No Dental Care, Regularly: Yes Physical Activity Frequency: Does not Exercise Seatbelt Use: always Sunscreen Use: No Assistive Devices: Glasses Review of Systems Review of Systems: All systems reviewed & are unremarkable except as noted in HPI & below Physical Exam Physical Exam: Constitutional: No acute distress HEENT: EOMI, PERRLA Respiratory system: Decreased air entry bilaterally, no wheeze, rhonchi, positive crackles bilaterally CVS: S1-S2 positive, no murmurs or gallops Abdomen: Soft, nontender, nondistended, positive bowel sounds x4, obese Extremities: +2 pulses bilaterally radialis/ dorsalis pedis, no cyanosis, +1 edema bilateral lower extremity Neuro: Awake alert oriented x3 Psych: Normal mood and affect G/U: No [place] Skin: no rashes, warm and dry Lymphatic: no cervical or axillary lymphadenopathy Results & Data Results & Data ([facility]) Vital Signs (Past 12 Hours) Vital Signs Temp Pulse Pulse Resp BP Pulse Ox 11/18/20 14:04 119 H 30 H 95 11/18/20 13:41 87 26 H 91 11/18/20 11:39 37.6 C 68 28 H 128/82 91 11/18/20 12:25 11/18/20 12:25 PG Care Time/CCT Total # of Minutes Spent Total Time Spent with Patient: Total time spent is greater than 50% in coordination of care (as documented) at patient's floor/unit and/or counseling patient: Critical Care Time: Yes Total Critical Care Time: 55 Coding Level of Care Code None Diagnoses Pneumonia due to 2019 novel coronavirus U07.1; J12.82 Acute respiratory failure with hypoxia J96.01 Morbid obesity E66.01 Asthma J45.909 Additional Codes Critical Care Time - Critical Care Time: Yes ([id number]) Time Spent (min) 55
[2020-11-18] MEDS ORDERED: BARICITINIB 2 MG TAB PO SCH (15:00)
[2020-11-18] MEDS ORDERED: PHARMACY GLYCEMIC MGMT CONSULT PRN (16:11)
[2020-11-18] MEDS ORDERED: POLYETHYLENE (MIRALAX) 17 GM PACK PO PRN (16:11)
[2020-11-18] MEDS ORDERED: LORazepam 0.5 MG/1 ML VIAL IV STA (17:12)
[2020-11-18] MEDS: 4 mg Once Daily x14 days PO SCH (17:42)
[2020-11-18] MEDS: PANTOprazole 40 MG TAB PO SCH (21:26)
[2020-11-18] MEDS: DEXTROMETHORPHAN POLYMR COMPLX 30 MG/5 ML UDP PO PRN (21:26)
[2020-11-18] MEDS: METOPROLOL TARTRATE 25 MG TAB PO SCH (21:26)
[2020-11-18] MEDS: buPROPion SR 100 MG TABCR PO SCH (21:26)
[2020-11-18] MEDS: SPIRONOLACTONE 25 MG TAB PO SCH (21:27)
[2020-11-18] MEDS: guaiFENesin 600 MG TABCR PO SCH (21:27)
[2020-11-18] MEDS: MONTELUKAST SODIUM 10 MG TABLET PO SCH (21:28)
[2020-11-18] MEDS: ENOXAPARIN INJ 40 MG/0.4 ML SYR SQ SCH (21:28)
[2020-11-18] MEDS: INSULIN GLARGINE SOLOSTAR 100 UNITS/ML 3 ML PEN SC SCH (21:31)
[2020-11-18] MEDS: FAMOTIDINE 20MG/5ML IV PUSH IV SCH (21:32)
[2020-11-18] MEDS: INSULIN ASPART 100 UNITS/ML 3 ML PEN SC SCH (22:18)
[2020-11-19] MEDS: ALBUT/IPRATROP 3MG/0.5MG NEB 3 ML VIAL NEB PRN ×3 (00:32→19:15)
[2020-11-19] MEDS: ACETAMINOPHEN 325 MG TAB PO PRN ×2 (00:37→06:06)
[2020-11-19] MEDS: INSULIN ASPART 100 UNITS/ML 3 ML PEN SC SCH ×6 (01:01→20:50)
[2020-11-19] MEDS: LORazepam 0.5 MG TAB PO PRN ×3 (01:25→22:35)
[2020-11-19 06:39] LABS: Basophils # (auto) 0.01 K/uL (0-0.2); Basophils % (auto) 0.1 %; Hematocrit (blood only) 39.9 % (37-47); Hemoglobin 13.4 g/dL (12.0-16.0); Immature Granulocytes # (auto) 0.04 K/uL (0.00-0.02); Immature Granulocytes % (auto) 0.5 %; Lymphocytes # (auto) 1.57 K/uL (1.2-3.4); Lymphocytes % (auto) 19.2 %; Mean Corpuscular Hemoglobin 30.1 pg (25-34); Mean Corpuscular Hgb Conc 33.6 g/dL (32-36); Mean Corpuscular Volume 89.7 fL (80-100); Mean Platelet Volume 9.1 fL (7.4-10.4); Monocytes # (auto) 0.66 K/uL (0.11-0.59); Monocytes % (auto) 8.1 %; Neutrophils # (auto) 5.88 K/uL (1.4-6.5); Neutrophils % (auto) 72.1 %; Platelet Count 244 K/uL (130-400); RDW Coefficient of Variation 14.9 % (11.5-14.5); RDW Standard Deviation 48.7 fL (36.4-46.3); Red Blood Count 4.45 M/uL (4.2-5.4); White Blood Count 8.16 K/uL (4.8-10.8)
[2020-11-19 07:12] LABS: BUN Creatinine Ratio 15.2 (10-20); Calcium 9.5 mg/dl (8.5-10.1); Creatinine Clr Calc Pharmacy 111.3 ml/min; Est GFR (African American) 104.7 ml/min; Est GFR (Non-African American) 90.4 ml/min; Potassium 3.5 mmol/L (3.5-5.1)
[2020-11-19 07:14] LABS: Albumin Globulin Ratio 0.6 (0.9-2); Bilirubin,Total 0.4 mg/dl (0.2-1); C Reactive Protein 8.33 mg/dl (0-0.29); Globulin 5.1 gm/dl (2.5-4.0); Total Protein 8.1 gm/dl (6.4-8.2)
[2020-11-19] MEDS ORDERED: DEXTROSE 50% 50 ML SYRINGE IV PRN (07:30)
[2020-11-19] MEDS ORDERED: GLUCOSE 10 TABS/TUBE PO PRN (07:30)
[2020-11-19] MEDS ORDERED: GLUCAGON FOR INJ 1 MG VIAL IM PRN (07:30)
[2020-11-19] MEDS ORDERED: CARBOHYDRATES FOR HYPOGLYCEMIA PO PRN (07:30)
[2020-11-19] MEDS ORDERED: GLUCOSE 40% GEL 15 GM TUBE PO PRN (07:30)
--- NOTE | 2020-11-19 08:39 | Hospitalist Progress Note ---
Date of Service November 19, 2020 Assessment & Plan (1) Pneumonia due to 2019 novel coronavirus: Plan: severe pneumonia, presented day 7 of illness, was placed on high flow immediately in the ED currently on 60L and 100% while sitting upright, working to breathe, tachypnea dexamethasone 6mg IV daily, day 2 Baricitinib day 2, will take 14 days total Lasix 40mg IV q AM for negative fluid balance, place meyer so she is not getting up and desaturating prone position as often as possible discussed with her and her that intubation and ventilation is real possibility, need to prone to try to prevent this (2) Acute respiratory failure with hypoxia: Plan: severe hypoxemia, requiring BIPAP initially in the ED and then placed on high flow currently on 60L and 100% long discussion with her about importance of proning and her RN will make her do it, place meyer so she can rest Lasix 40mg IV daily to keep lungs dry (takes 20mg BID at home) treat COVID with dexamethasone, baricitinib (3) Asthma: Plan: Continue Alvesco 2 puff BID or hospital formulary equivalent. No wheezing on exam today Duonebs PRN (4) Obesity: Plan: increased risk of needing ventilation prone as much as possible (5) Type 2 diabetes mellitus with insulin therapy: Plan: HbA1C 6.3 in September. Consult pharmacy for glycemic control in setting of steroid use using Novolog sliding scale monitor for hyper and hypoglycemic episodes (6) Hypertension: Plan: No known CHF but she is on spironolactone and Lasix. continue Lasix 40mg IV daily Continue spironolactone Continue metoprolol with hold parameters (7) Atrial flutter, paroxysmal: Plan: Remote history of this supposedly after ?after COPD instead of asthma treatment per patient. s/p ablation 2009. Monitor on telemetry for recurrence. Plan: VTE Prophylaxis - Lovenox 40mg SQ BID Diet - diabetic, heart healthy Disposition - admit to PCU, pulmonary following, low threshold to move to ICU status if she fails high flow Admission and Anticipated Discharge Date Admission Date: November 18, 2020 Subjective patient currently on 60L and 100% FiO2, sitting on bedside commode, needed to urinate after Lasix 40mg IV this morning she c/o severe headache, says she gets crippling migraines at home and this is similar, had a headache all night, very little rest, Tylenol not helping will give her Toradol and Imitrex this morning discussed that we should place a meyer catheter and have her lay prone as much as possible today, she does not like the idea of a catheter but she understands reviewed the chart appreciate pulmonary consult, treating with Baricitinib and dexamethasone, Lasix IV she says she has been sick 8 days now I updated her over the phone, answered all his questions told him we will take this one day at a time, goal is for her to lay prone as much as possible, see if we can wean down the oxygen discussed with him that intubation and mechanical ventilation is a real possibility with her as she came in so sick with high flow on admission Review of Systems Review of Systems: All systems reviewed & are unremarkable except as noted in Subjective Constitutional: + fatigue and + weakness; no fever, no chills and no sweats Respiratory: + cough, + chest congestion, + dyspnea and + dyspnea on exertion Cardiovascular: no chest pain and no edema Gastrointestinal: no abdominal pain, no nausea, no vomiting, no constipation and no diarrhea/loose stools Neurologic: + headache(s) (severe, migraine) Physical Exam Physical Exam: General: well developed, obese female, moderate distress, uncomfortable, ill appearing Neck: supple, trachea midline, normal thyroid Lungs: crackles bilaterally, tachypnea, labored breathing using accessory muscles Heart: regular S1 and S2, no murmur, peripheral pulses normal, capillary refill normal, no edema Abdomen: soft, NT, ND, + BS, no hepatomegaly, normal to percussion Extremities: normal in appearance, no cyanosis, no petechiae, strength is 5/5 bilaterally Neuro: awake, cooperative, moves all extremities, no focal motor deficits, CN II-XII intact, sensation in extremities intact, normal speech Skin: warm, dry, no rash, normal turgor Psych: Awake, alert oriented x 3, euthymic affect Results & Data Results & Data ([facility]) Vital Signs (Past 12 Hours) Vital Signs Temp Pulse Resp BP Pulse Ox 11/19/20 08:00 37.0 C 86 20 127/87 93 11/19/20 07:44 84 20 90 11/19/20 03:53 36.7 C 83 17 115/59 L 91 11/19/20 02:42 82 26 H 91 11/19/20 00:32 85 18 89 L 11/18/20 23:48 37.3 C 88 27 H 156/99 H 91 11/18/20 23:04 89 28 H 90 11/18/20 20:56 37.2 C 101 H 29 H 139/87 91 Laboratory Results Laboratory Results - last 24 hr 11/18/20 11/18/20 11/18/20 12:10 12:10 12:25 WBC 8.37 RBC 4.54 Hgb 13.6 Hct 40.6 MCV 89.4 MCH 30.0 MCHC 33.5 RDW Std Deviation 48.9 H RDW Coeff of [place] 14.9 H Plt Count 215 MPV 9.2 Immature Gran % (Auto) 0.5 Neut % (Auto) 78.6 Lymph % (Auto) 15.3 [place] % (Auto) 5.6 Eos % (Auto) 0.0 Baso % (Auto) 0.0 Neut # (Auto) 6.58 H Lymph # (Auto) 1.28 [place] # (Auto) 0.47 Eos # (Auto) 0.00 Baso # (Auto) 0.00 Immature Gran # (Auto) 0.04 H PT INR APTT PTT Ratio D-Dimer ABG pH ABG pCO2 ABG pO2 ABG HCO3 ABG O2 Saturation ABG Base Excess Jamar Test Barometric Pressure Oxygen Given Sodium Potassium Chloride Carbon Dioxide Anion Gap BUN Creatinine Est Cr Clr Drug Dosing Est GFR ( Amer) Est GFR (Non-Af Amer) BUN/Creatinine Ratio Glucose POC Glucose Calcium Total Bilirubin AST ALT Alkaline Phosphatase Troponin I C-Reactive Protein NT-Pro-B Natriuret Pep Total Protein Albumin Globulin Albumin/Globulin Ratio Lipase Procalcitonin COVID-19 Eval Order Covid19 at [facility] SARS-CoV-2 (PCR) POSITIVE A* 11/18/20 11/18/20 11/18/20 12:25 12:25 12:25 WBC RBC Hgb Hct MCV MCH MCHC RDW Std Deviation RDW Coeff of [place] Plt Count MPV Immature Gran % (Auto) Neut % (Auto) Lymph % (Auto) [place] % (Auto) Eos % (Auto) Baso % (Auto) Neut # (Auto) Lymph # (Auto) [place] # (Auto) Eos # (Auto) Baso # (Auto) Immature Gran # (Auto) PT 10.3 INR 1.0 APTT 25.3 PTT Ratio 1.0 D-Dimer 660 H* ABG pH ABG pCO2 ABG pO2 ABG HCO3 ABG O2 Saturation ABG Base Excess Jamar Test Barometric Pressure Oxygen Given Sodium 137 Potassium 3.5 Chloride 104 Carbon Dioxide 23 Anion Gap 10.0 BUN 11 Creatinine 0.83 Est Cr Clr Drug Dosing 96.1 Est GFR ( Amer) 92.7 Est GFR (Non-Af Amer) 79.9 BUN/Creatinine Ratio 12.8 Glucose 139 H POC Glucose Calcium 9.4 Total Bilirubin 0.3 AST 32 ALT 26 Alkaline Phosphatase 81 Troponin I < 0.015 C-Reactive Protein 9.08 H NT-Pro-B Natriuret Pep 78 Total Protein 8.1 Albumin 3.0 L Globulin 5.1 H Albumin/Globulin Ratio 0.6 L Lipase 238 Procalcitonin COVID-19 Eval Order SARS-CoV-2 (PCR) 11/18/20 11/18/20 11/18/20 12:25 13:59 16:23 WBC RBC Hgb Hct MCV MCH MCHC RDW Std Deviation RDW Coeff of [place] Plt Count MPV Immature Gran % (Auto) Neut % (Auto) Lymph % (Auto) [place] % (Auto) Eos % (Auto) Baso % (Auto) Neut # (Auto) Lymph # (Auto) [place] # (Auto) Eos # (Auto) Baso # (Auto) Immature Gran # (Auto) PT INR APTT PTT Ratio D-Dimer ABG pH 7.46 H ABG pCO2 28 L ABG pO2 52 L ABG HCO3 20 ABG O2 Saturation 88.8 L ABG Base Excess -2.6 Jamar Test Pos Barometric Pressure 735.1 Oxygen Given 15L Sodium Potassium Chloride Carbon Dioxide Anion Gap BUN Creatinine Est Cr Clr Drug Dosing Est GFR ( Amer) Est GFR (Non-Af Amer) BUN/Creatinine Ratio Glucose POC Glucose 221 H Calcium Total Bilirubin AST ALT Alkaline Phosphatase Troponin I C-Reactive Protein NT-Pro-B Natriuret Pep Total Protein Albumin Globulin Albumin/Globulin Ratio Lipase Procalcitonin 0.14 COVID-19 Eval Order SARS-CoV-2 (PCR) 11/18/20 11/19/20 11/19/20 20:55 00:58 05:44 WBC 8.16 RBC 4.45 Hgb 13.4 Hct 39.9 MCV 89.7 MCH 30.1 MCHC 33.6 RDW Std Deviation 48.7 H RDW Coeff of [place] 14.9 H Plt Count 244 MPV 9.1 Immature Gran % (Auto) 0.5 Neut % (Auto) 72.1 Lymph % (Auto) 19.2 [place] % (Auto) 8.1 Eos % (Auto) 0.0 Baso % (Auto) 0.1 Neut # (Auto) 5.88 Lymph # (Auto) 1.57 [place] # (Auto) 0.66 H Eos # (Auto) 0.00 Baso # (Auto) 0.01 Immature Gran # (Auto) 0.04 H PT INR APTT PTT Ratio D-Dimer ABG pH ABG pCO2 ABG pO2 ABG HCO3 ABG O2 Saturation ABG Base Excess Jamar Test Barometric Pressure Oxygen Given Sodium Potassium Chloride Carbon Dioxide Anion Gap BUN Creatinine Est Cr Clr Drug Dosing Est GFR ( Amer) Est GFR (Non-Af Amer) BUN/Creatinine Ratio Glucose POC Glucose 286 H 209 H Calcium Total Bilirubin AST ALT Alkaline Phosphatase Troponin I C-Reactive Protein NT-Pro-B Natriuret Pep Total Protein Albumin Globulin Albumin/Globulin Ratio Lipase Procalcitonin COVID-19 Eval Order SARS-CoV-2 (PCR) 11/19/20 11/19/20 11/19/20 05:44 06:10 08:05 WBC RBC Hgb Hct MCV MCH MCHC RDW Std Deviation RDW Coeff of [place] Plt Count MPV Immature Gran % (Auto) Neut % (Auto) Lymph % (Auto) [place] % (Auto) Eos % (Auto) Baso % (Auto) Neut # (Auto) Lymph # (Auto) [place] # (Auto) Eos # (Auto) Baso # (Auto) Immature Gran # (Auto) PT INR APTT PTT Ratio D-Dimer ABG pH ABG pCO2 ABG pO2 ABG HCO3 ABG O2 Saturation ABG Base Excess Jamar Test Barometric Pressure Oxygen Given Sodium 138 Potassium 3.5 Chloride 105 Carbon Dioxide 24 Anion Gap 9.0 BUN 11 Creatinine 0.75 Est Cr Clr Drug Dosing 111.3 Est GFR ( Amer) 104.7 Est GFR (Non-Af Amer) 90.4 BUN/Creatinine Ratio 15.2 Glucose 139 H POC Glucose 122 H 131 H Calcium 9.5 Total Bilirubin 0.4 AST 23 ALT 21 Alkaline Phosphatase 78 Troponin I C-Reactive Protein 8.33 H NT-Pro-B Natriuret Pep Total Protein 8.1 Albumin 3.0 L Globulin 5.1 H Albumin/Globulin Ratio 0.6 L Lipase Procalcitonin COVID-19 Eval Order SARS-CoV-2 (PCR) Medications Administered Current Inpatient Medications Acetaminophen (Acetaminophen 325 Mg Tab) 650 mg PO Q4H PRN PRN Reason: Pain or Fever Stop: 12/18/20 16:10 Last Admin: 11/19/20 06:06 Dose: 650 mg Documented by: Albuterol (Albut/Ipratrop 3mg/0.5mg Neb 3 Ml Vial) 3 ml NEB Q4R PRN PRN Reason: wheezing Stop: 12/18/20 16:10 Last Admin: 11/19/20 00:32 Dose: 3 ml Documented by: Aspirin (Aspirin 81 Mg Ectab) 81 mg PO QAM [facility] Stop: 12/19/20 08:59 Baricitinib (4 Mg Once Daily X14 Days) 4 mg PO Q24H GIANNA; Protocol Stop: 12/02/20 17:59 Last Admin: 11/18/20 17:42 Dose: 4 mg Documented by: Bupropion HCl (Bupropion Sr 100 Mg Tabcr) 200 mg PO BID [facility] Stop: 12/18/20 20:59 Last Admin: 11/18/20 21:26 Dose: 200 mg Documented by: Cyanocobalamin (Cyanocobalamin 500 Mcg Tablet (Vitamin B-12)) 2,500 mcg PO QAM [facility] Stop: 12/19/20 08:59 Dextromethorphan Polymer Complex (Dextromethorphan Polymr Complx 30 Mg/5 Ml Udp) 30 mg PO Q6H PRN PRN Reason: Cough Stop: 12/18/20 19:47 Last Admin: 11/18/20 21:26 Dose: 30 mg Documented by: Dextrose (Dextrose 50% 50 Ml Syringe) 25 - 50 ml IV UD PRN; Protocol PRN Reason: Hypoglycemia Protocol Stop: 12/19/20 07:29 Enoxaparin Sodium (Enoxaparin Inj 40 Mg/0.4 Ml Syr) 40 mg SQ BID GIANNA Stop: 12/18/20 20:59 Last Admin: 11/18/20 21:28 Dose: 40 mg Documented by: Famotidine (Famotidine 20mg/5ml Iv Push) 20 mg IV BID [facility] Stop: 12/18/20 20:59 Last Admin: 11/18/20 21:32 Dose: 20 mg Documented by: Glucagon (Glucagon For Inj 1 Mg Vial) 1 mg IM UD PRN; Protocol PRN Reason: Hypoglycemia Protocol Stop: 12/19/20 07:29 Glucose (Glucose 40% Gel 15 Gm Tube) 15 - 30 gm PO UD PRN; Protocol PRN Reason: Hypoglycemia Protocol Stop: 12/19/20 07:29 Glucose (Glucose 10 Tabs/Tube) 4 - 8 tabs PO UD PRN; Protocol PRN Reason: Hypoglycemia Protocol Stop: 12/19/20 07:29 Guaifenesin (Guaifenesin 600 Mg Tabcr) 1,200 mg PO Q12 [facility] Stop: 12/18/20 20:59 Last Admin: 11/18/20 21:27 Dose: 1,200 mg Documented by: Dexamethasone 6 mg/ Syringe 1.5 mls @ 1 mls/min IV QAM [facility] Stop: 12/19/20 08:59 Insulin Aspart (Insulin Aspart 100 Units/Ml 3 Ml Pen) 0 units SC ACHS [facility]; Protocol Stop: 12/19/20 07:29 Insulin Glargine (Insulin Glargine Solostar 100 Units/Ml 3 Ml Pen) 45 units SC HS [facility] Stop: 12/18/20 20:59 Last Admin: 11/18/20 21:31 Dose: 45 units Documented by: Insulin Human NPH (Insulin Human Nph) 40 units SC DAILY [facility]; Protocol Stop: 12/19/20 08:59 Lorazepam (Lorazepam 0.5 Mg Tab) 0.5 mg PO Q6H PRN PRN Reason: Anxiety Stop: 12/18/20 19:50 Last Admin: 11/19/20 01:25 Dose: 0.5 mg Documented by: Metoprolol Tartrate (Metoprolol Tartrate 25 Mg Tab) 75 mg PO BID [facility] Stop: 12/18/20 20:59 Last Admin: 11/18/20 21:26 Dose: 75 mg Documented by: Miscellaneous (Order Awaiting Action [Ciclesonide [Alvesco] 160 Mcg/Actuation Hfa Aerosol Inhaler]) 1 ea N/A QS [facility] Stop: 12/19/20 00:00 Last Admin: 11/19/20 01:01 Dose: Not Given Documented by: Miscellaneous (Carbohydrates For Hypoglycemia ) 15 - 30 gm PO UD PRN PRN Reason: Hypoglycemia Treatment Stop: 12/19/20 07:29 Miscellaneous Information (Pharmacy Glycemic Mgmt Consult) 1 ea N/A UD PRN PRN Reason: Consult Stop: 12/18/20 16:10 Montelukast Sodium (Montelukast Sodium 10 Mg Tablet) 10 mg PO QPM [facility] Stop: 12/18/20 20:59 Last Admin: 11/18/20 21:28 Dose: 10 mg Documented by: Ondansetron HCl (Ondansetron Inj 2 Mg/Ml 2 Ml Vial) 4 mg IV Q6H PRN PRN Reason: Nausea Stop: 12/18/20 16:10 Pantoprazole Sodium (Pantoprazole 40 Mg Tab) 40 mg PO BID [facility]; Protocol Stop: 12/18/20 20:59 Last Admin: 11/18/20 21:26 Dose: 40 mg Documented by: Polyethylene Glycol (Polyethylene (Miralax) 17 Gm Pack) 17 gm PO DAILY PRN PRN Reason: Constipation Stop: 12/18/20 16:10 Spironolactone (Spironolactone 25 Mg Tab) 50 mg PO BID [facility] Stop: 12/18/20 20:59 Last Admin: 11/18/20 21:27 Dose: 50 mg Documented by: PG Care Time/CCT Total # of Minutes Spent Total Time Spent with Patient: Total time spent is greater than 50% in coordination of care (as documented) at patient's floor/unit and/or counseling patient: Coding Level of Care Code 33851 Subseq Hosp Care Lvl 3 Diagnoses Pneumonia due to 2019 novel coronavirus U07.1; J12.82 Acute respiratory failure with hypoxia J96.01 Asthma J45.909 Obesity E66.9 Type 2 diabetes mellitus with insulin therapy E11.9; Z79.4 Hypertension I10 Atrial flutter, paroxysmal I48.92
[2020-11-19] MEDS: dexAMETHasone 6 MG in SYRINGE 0 ML IV SCH (08:54)
[2020-11-19] MEDS: ASPIRIN 81 MG ECTAB PO SCH (08:55)
[2020-11-19] MEDS: METOPROLOL TARTRATE 25 MG TAB PO SCH ×2 (08:55→20:10)
[2020-11-19] MEDS: CYANOCOBALAMIN 500 MCG TABLET (VITAMIN B-12) PO SCH (08:55)
[2020-11-19] MEDS: SPIRONOLACTONE 25 MG TAB PO SCH ×2 (08:55→20:13)
[2020-11-19] MEDS: DEXTROMETHORPHAN POLYMR COMPLX 30 MG/5 ML UDP PO PRN ×2 (08:55→20:16)
[2020-11-19] MEDS: guaiFENesin 600 MG TABCR PO SCH ×2 (08:55→20:09)
[2020-11-19] MEDS: PANTOprazole 40 MG TAB PO SCH ×2 (08:56→20:12)
[2020-11-19] MEDS: buPROPion SR 100 MG TABCR PO SCH ×2 (08:56→20:06)
[2020-11-19] MEDS: ENOXAPARIN INJ 40 MG/0.4 ML SYR SQ SCH ×2 (08:57→20:07)
[2020-11-19] MEDS ORDERED: FUROSEMIDE 40 MG in SYRINGE 0 ML IV ONE (09:00)
[2020-11-19] MEDS: INSULIN HUMAN NPH SC SCH (09:00)
[2020-11-19] MEDS ORDERED: FUROSEMIDE 40 MG/4 ML VIAL IV ONE (09:00)
[2020-11-19] MEDS ORDERED: SUMAtriptan succinate 6 MG/0.5 ML VIAL SQ STA (09:42)
[2020-11-19] MEDS ORDERED: KETOROLAC TROMETHAMINE 15 MG/ML VIAL IV ONE (09:42)
[2020-11-19 09:48] LABS: Magnesium 2.6 mg/dl (1.8-2.4); Phosphorus 2.9 mg/dl (2.5-4.9)
[2020-11-19] MEDS: FAMOTIDINE 20 MG in SYRINGE 3 ML IV SCH ×2 (11:42→20:09)
[2020-11-19] MEDS: LIDOCAINE 5% 1 PATCH TD SCH (11:43)
[2020-11-19] MEDS: FAMOTIDINE 20MG/5ML IV PUSH IV SCH (11:44)
--- NOTE | 2020-11-19 14:17 | Pharmacy Report ---
Pharmacy Glycemic Short Note 2 - Date of Service November 19, 2020 - Glycemic Short BSG Results (Last 24 hours): 11/18/20 11/18/20 11/19/20 16:23 20:55 00:58 Glucose POC Glucose 221 H 286 H 209 H 11/19/20 11/19/20 11/19/20 05:44 06:10 08:05 Glucose 139 H POC Glucose 122 H 131 H 11/19/20 12:19 Glucose POC Glucose 161 H OUTPATIENT ANTIDIABETIC REGIMEN: * Basaglar 60 units HS * Ozempic 0.5mg SQ monthly * Metformin ER 1000mg PO BID ASSESSMENT: * 55 year old female admitted with COVID19, resp failure, type 2 diabetic, obese, A1c 6.3% on 09/27/20. * IV dexamethasone started today - will cover with NPH * Continue Lantus at night for basal needs, fasting BSG 122mg/dl with 45 units given last night, continue * Novolog CF/CR PLAN FOR INPATIENT GLYCEMIC CONTROL: * Hold outpatient Metformin and Ozempic diabetes medications * Basal insulin * Lantus 45 units SQ HS * NPH 40 units SQ daily with IV Dexamethasone * Bolus insulin * NovoLog per scale ACHS or Q6hrs while NPO * Goal Range: Low 110 mg/dL - High 140 mg/dL * Correction Factor: 15 mg/dL/unit * Nutritional / Prandial insulin per carb ratio of 1 unit per 5 grams CHO consumed PLAN FOR DISCHARGE: * A1c 6.3% at goal, continue home regimen
--- NOTE | 2020-11-19 14:18 | Pulmonology Progress Note ---
Date of Service November 19, 2020 Assessment & Plan (1) Pneumonia due to 2019 novel coronavirus: (2) Acute respiratory failure with hypoxia: (3) Morbid obesity: (4) Asthma: Plan: Chest x-ray 11/18/20 personally reviewed: Portable film, bilateral alveolar opacities appreciated bilaterally, bilateral costophrenic angles are blunted Increased cardiac silhouette --Acute hypoxic respiratory failure Secondary to multilobar COVID-19 pneumonia COVID-19 PCR positive CRP 8.8 Procalcitonin 0.14 BNP 74 Continue with O2 supplementation to keep oxygen saturation between 90-92%. Awake proning will be helpful Continue with incentive spirometry Continue with flutter valve. Patient refusing Remdesivir. Baricitinib startred 11/18/20 Recommend patient to be kept euvolemic to negative balance --Morbid obesity with probable JIMY Continue with BiPAP/CPAP nightly and as needed shortness of breath --History of anxiety Continue with bupropion She takes Ativan at home as well Plan: Patient was not using CPAP/BiPAP. Advised her to use it when she is not proning. 40mg of Lasix given today. Patient is also on spirinolactone. Would recommend keeping close eye on Potassium and Cr function C/w awake proning will be beneficial for the patient Please note the above document was generated using voice recognition software. It may contain grammatical, syntax or spelling errors. Admission and Anticipated Discharge Date Admission Date: November 18, 2020 Subjective Patient seen and examined at bedside. Was on 55L 65%. Saturating 94% while being proned. Denied any GASTON, No CP. She states she over all feels better. Urinating well. Review of Systems Review of Systems: All systems reviewed & are unremarkable except as noted in Subjective Physical Exam Physical Exam: Constitutional: No acute distress HEENT: EOMI, PERRLA Respiratory system: Decreased air entry bilaterally, no wheeze, rhonchi, positive crackles bilaterally CVS: S1-S2 positive, no murmurs or gallops Abdomen: Soft, nontender, nondistended, positive bowel sounds x4, obese Extremities: +2 pulses bilaterally radialis/ dorsalis pedis, no cyanosis, +1 edema bilateral lower extremity Neuro: Awake alert oriented x3 Psych: Normal mood and affect G/U: No [place] Skin: no rashes, warm and dry Lymphatic: no cervical or axillary lymphadenopathy Results & Data Results & Data ([facility]) Vital Signs (Past 12 Hours) Vital Signs Temp Pulse Pulse Resp BP BP Pulse Ox 11/19/20 13:29 83 24 88 L 11/19/20 12:25 90 11/19/20 11:54 93 11/19/20 11:21 36.8 C 81 20 121/71 94 11/19/20 11:16 80 22 93 11/19/20 11:07 97 11/19/20 11:00 97 11/19/20 08:40 93 11/19/20 08:00 37.0 C 86 20 127/87 93 11/19/20 07:44 84 20 90 11/19/20 07:00 84 11/19/20 03:53 36.7 C 83 17 115/59 L 91 11/19/20 02:42 82 26 H 91 11/19/20 05:44 11/19/20 05:44 PG Care Time/CCT Total # of Minutes Spent Total Time Spent with Patient: Total time spent is greater than 50% in coordination of care (as documented) at patient's floor/unit and/or counseling patient: Coding Level of Care Code 95557 Subseq Hosp Care Lvl 3 Diagnoses Pneumonia due to 2019 novel coronavirus U07.1; J12.82 Acute respiratory failure with hypoxia J96.01 Morbid obesity E66.01 Asthma J45.909
[2020-11-19] MEDS ORDERED: SODIUM CHLORIDE 0.65% NA SOLN 45 ML (OCEAN) PRN (16:50)
[2020-11-19] MEDS ORDERED: SUMAtriptan succinate 6 MG/0.5 ML VIAL SQ ONE (18:15)
[2020-11-19] MEDS: 4 mg Once Daily x14 days PO SCH (18:47)
[2020-11-19] MEDS: DICLOFENAC SOD 1% GEL 100 GM TUBE EXT SCH (20:07)
[2020-11-19] MEDS: MONTELUKAST SODIUM 10 MG TABLET PO SCH (20:11)
[2020-11-19] MEDS: MUPIROCIN 2% OINT 22 GM TUBE EXT SCH (20:12)
[2020-11-19] MEDS: POTASSIUM CHLORIDE CRTAB 20 MEQ TABCR PO SCH (20:12)
[2020-11-19] MEDS: INSULIN GLARGINE SOLOSTAR 100 UNITS/ML 3 ML PEN SC SCH (20:51)
[2020-11-19] MEDS: ONDANSETRON INJ 2 MG/ML 2 ML VIAL IV PRN (21:58)
[2020-11-19] MEDS: MoRPHine SULFATE 2 MG/ML CARP IV PRN (22:34)
[2020-11-20] MEDS: ALBUT/IPRATROP 3MG/0.5MG NEB 3 ML VIAL NEB PRN ×6 (01:47→22:13)
[2020-11-20] MEDS: ACETAMINOPHEN 325 MG TAB PO PRN ×2 (04:01→20:55)
[2020-11-20 06:48] LABS: Basophils # (auto) 0.01 K/uL (0-0.2); Basophils % (auto) 0.1 %; Eosinophils # (auto) 0.01 K/uL (0-0.5); Eosinophils % (auto) 0.1 %; Hematocrit (blood only) 39.8 % (37-47); Hemoglobin 13.3 g/dL (12.0-16.0); Immature Granulocytes # (auto) 0.04 K/uL (0.00-0.02); Immature Granulocytes % (auto) 0.4 %; Lymphocytes # (auto) 2.54 K/uL (1.2-3.4); Lymphocytes % (auto) 24.7 %; Mean Corpuscular Hemoglobin 30.1 pg (25-34); Mean Corpuscular Hgb Conc 33.4 g/dL (32-36); Mean Platelet Volume 9.2 fL (7.4-10.4); Monocytes # (auto) 0.38 K/uL (0.11-0.59); Monocytes % (auto) 3.7 %; Neutrophils # (auto) 7.31 K/uL (1.4-6.5); Platelet Count 294 K/uL (130-400); RDW Coefficient of Variation 14.6 % (11.5-14.5); RDW Standard Deviation 48.6 fL (36.4-46.3); Red Blood Count 4.42 M/uL (4.2-5.4); White Blood Count 10.29 K/uL (4.8-10.8)
[2020-11-20 07:20] LABS: Albumin Level 2.8 gm/dl (3.4-5.0); BUN Creatinine Ratio 18.7 (10-20); C Reactive Protein 5.22 mg/dl (0-0.29); Calcium 9.5 mg/dl (8.5-10.1); Est GFR (African American) 96.9 ml/min; Est GFR (Non-African American) 83.6 ml/min; Potassium 3.7 mmol/L (3.5-5.1)
[2020-11-20 07:23] LABS: Albumin Globulin Ratio 0.6 (0.9-2); Bilirubin,Total 0.5 mg/dl (0.2-1); Globulin 4.9 gm/dl (2.5-4.0); Total Protein 7.7 gm/dl (6.4-8.2)
[2020-11-20] MEDS: ASPIRIN 81 MG ECTAB PO SCH (08:21)
[2020-11-20] MEDS: PANTOprazole 40 MG TAB PO SCH ×2 (08:21→21:11)
[2020-11-20] MEDS: CYANOCOBALAMIN 500 MCG TABLET (VITAMIN B-12) PO SCH (08:22)
[2020-11-20] MEDS: SPIRONOLACTONE 25 MG TAB PO SCH ×2 (08:22→21:13)
[2020-11-20] MEDS: POTASSIUM CHLORIDE CRTAB 20 MEQ TABCR PO SCH ×2 (08:25→21:11)
[2020-11-20] MEDS: DICLOFENAC SOD 1% GEL 100 GM TUBE EXT SCH ×2 (08:25→21:14)
[2020-11-20] MEDS: FAMOTIDINE 20 MG in SYRINGE 3 ML IV SCH ×2 (08:26→21:10)
[2020-11-20] MEDS: ENOXAPARIN INJ 40 MG/0.4 ML SYR SQ SCH ×2 (08:26→21:09)
[2020-11-20] MEDS: FUROSEMIDE 40 MG in SYRINGE 0 ML IV SCH (08:26)
[2020-11-20] MEDS: buPROPion SR 100 MG TABCR PO SCH ×2 (08:27→21:09)
[2020-11-20] MEDS: dexAMETHasone 6 MG in SYRINGE 0 ML IV SCH (08:27)
[2020-11-20] MEDS: guaiFENesin 600 MG TABCR PO SCH ×2 (08:28→21:08)
[2020-11-20] MEDS: MUPIROCIN 2% OINT 22 GM TUBE EXT SCH ×2 (08:28→21:11)
[2020-11-20] MEDS: METOPROLOL TARTRATE 25 MG TAB PO SCH ×2 (08:28→21:06)
[2020-11-20] MEDS: DEXTROMETHORPHAN POLYMR COMPLX 30 MG/5 ML UDP PO PRN (08:29)
[2020-11-20] MEDS: LIDOCAINE 5% 1 PATCH TD SCH (09:08)
[2020-11-20] MEDS: LORazepam 0.5 MG TAB PO PRN ×2 (09:08→20:55)
[2020-11-20] MEDS: INSULIN ASPART 100 UNITS/ML 3 ML PEN SC SCH ×4 (09:09→21:32)
[2020-11-20] MEDS: INSULIN HUMAN NPH SC SCH (09:09)
[2020-11-20] MEDS ORDERED: REMDESIVIR 200 MG in SODIUM CHLORIDE 0.9% 210 ML IV STA ×2 (16:27→19:22)
[2020-11-20] MEDS: 4 mg Once Daily x14 days PO SCH (18:29)
[2020-11-20 19:10] LABS: Albumin Level 2.9 gm/dl (3.4-5.0); BUN Creatinine Ratio 18.3 (10-20); Calcium 9.2 mg/dl (8.5-10.1); Creatinine Clr Calc Pharmacy 103.5 ml/min; Est GFR (Non-African American) 81.1 ml/min; Potassium 4.3 mmol/L (3.5-5.1)
[2020-11-20 19:12] LABS: Albumin Globulin Ratio 0.5 (0.9-2); Bilirubin,Total 0.5 mg/dl (0.2-1); Globulin 5.7 gm/dl (2.5-4.0); Total Protein 8.6 gm/dl (6.4-8.2)
[2020-11-20] MEDS: MONTELUKAST SODIUM 10 MG TABLET PO SCH (21:10)
[2020-11-20] MEDS: INSULIN GLARGINE SOLOSTAR 100 UNITS/ML 3 ML PEN SC SCH (21:32)
--- NOTE | 2020-11-20 22:09 | Hospitalist Progress Note ---
Date of Service November 20, 2020 Assessment & Plan (1) Pneumonia due to 2019 novel coronavirus: Plan: severe pneumonia, presented day 7 of illness, was placed on high flow immediately in the ED currently on 60L at 75% while sitting upright, working to breathe, tachypnea dexamethasone 6mg IV daily, day 3 Baricitinib day 3, will take 14 days total Patient is willing to try remdesevir. is also agreeable. will check her renal panel and LFTs tomorrow. Lasix 40mg IV q AM for negative fluid balance, place meyer so she is not getting up and desaturating recommended prone position as often as possible discussed with her and her that intubation and ventilation is real possibility, need to prone to try to prevent this Patient tried proning yesterday but does not appear to be willing to try today. (2) Acute respiratory failure with hypoxia: Plan: severe hypoxemia, requiring BIPAP initially in the ED and then placed on high flow currently on 60L and 100% long discussion with her about importance of proning and her RN will make her do it, place meyer so she can rest Lasix 40mg IV daily to keep lungs dry (takes 20mg BID at home) treat COVID with dexamethasone, baricitinib (3) Asthma: Plan: Continue Alvesco 2 puff BID or hospital formulary equivalent. No wheezing on exam today Duonebs PRN (4) Obesity: Plan: increased risk of needing ventilation prone as much as possible (5) Type 2 diabetes mellitus with insulin therapy: Plan: HbA1C 6.3 in September. Consult pharmacy for glycemic control in setting of steroid use using Novolog sliding scale monitor for hyper and hypoglycemic episodes (6) Hypertension: Plan: No known CHF but she is on spironolactone and Lasix. continue Lasix 40mg IV daily Continue spironolactone Continue metoprolol with hold parameters (7) Atrial flutter, paroxysmal: Plan: Remote history of this supposedly after ?after COPD instead of asthma treatment per patient. s/p ablation 2009. Monitor on telemetry for recurrence. Plan: VTE Prophylaxis - Lovenox 40mg SQ BID Diet - diabetic, heart healthy Disposition - admit to PCU, pulmonary following, low threshold to move to ICU status if she fails high flow Admission and Anticipated Discharge Date Admission Date: November 18, 2020 Subjective 55 yo female reports no significant changes. Patient though shows understanding that she is not improving and is requiring more oxygen. Patient shows understanding about risk and benfit of remdesevir and is agreeable to take it if her LFTs and renal function are checked. However, she later refused to take it as she reports her has done "research" and states that this medication can cause harm and and is req uesting ivermectin. Had extensive conversation with , he asked about regeneron. I mentioned that regeneron is not an option for hospitalized patients as risks outweigh benefits. Discussed ivermectin that no studies have shown a benefit. Remdesevir is a viable choice and the longer we wait to tstart this the less chance that it will work. At the end of the conversation, was agreeable. Review of Systems Review of Systems: All systems reviewed & are unremarkable except as noted in HPI & below Physical Exam Physical Exam: General: well developed, obese female, on high flow. Neck: supple, trachea midline, normal thyroid Lungs: crackles bilaterally, tachypnea, labored breathing using accessory muscles Heart: regular S1 and S2, no murmur, peripheral pulses normal, capillary refill normal, no edema Abdomen: soft, NT, ND, + BS, no hepatomegaly, normal to percussion Extremities: normal in appearance, no cyanosis, no petechiae, strength is 5/5 bilaterally Neuro: awake, cooperative, moves all extremities, no focal motor deficits, CN II-XII intact, sensation in extremities intact, normal speech Skin: warm, dry, no rash, normal turgor Psych: Awake, alert oriented x 3, euthymic affect Results & Data Results & Data ([facility]) Vital Signs (Past 12 Hours) Vital Signs Temp Pulse Resp BP BP Pulse Ox Pulse Ox 11/20/20 19:52 37.4 C 88 20 131/75 93 11/20/20 19:04 87 27 H 92 11/20/20 19:03 87 27 H 92 11/20/20 16:00 37.1 C 87 19 134/86 100 98 11/20/20 15:47 85 24 97 11/20/20 11:44 100 H 30 H 91 11/20/20 11:06 37.4 C 94 H 20 121/80 92 PG Care Time/CCT Total # of Minutes Spent Total Time Spent with Patient: Total time spent is greater than 50% in coordination of care (as documented) at patient's floor/unit and/or counseling patient: Prolonged Care Time Prolonged Care Time: Yes Total Prolonged Care Time: 65 65 Coding Level of Care Code 32315 Subseq Hosp Care Lvl 3 (25 - SIGNIFICANT, SEPARATELY IDENTIFIABLE ) Diagnoses Pneumonia due to 2019 novel coronavirus U07.1; J12.82 Acute respiratory failure with hypoxia J96.01 Asthma J45.909 Obesity E66.9 Type 2 diabetes mellitus with insulin therapy E11.9; Z79.4 Hypertension I10 Atrial flutter, paroxysmal I48.92 Additional Codes Prolonged Care Time - Prolonged Care Time: Yes ([id number]) Time Spent (min) 65
[2020-11-21] MEDS: SODIUM CHLORIDE 0.9% 10ML FLUSH IV SCH ×2 (01:35→23:12)
[2020-11-21] MEDS: ONDANSETRON INJ 2 MG/ML 2 ML VIAL IV PRN (02:12)
[2020-11-21] MEDS: LORazepam 0.5 MG TAB PO PRN (04:58)
[2020-11-21] MEDS: MoRPHine SULFATE 2 MG/ML CARP IV PRN (04:58)
[2020-11-21] MEDS: ALBUT/IPRATROP 3MG/0.5MG NEB 3 ML VIAL NEB PRN ×2 (05:01→08:18)
[2020-11-21 07:31] LABS: Basophils # (auto) 0.01 K/uL (0-0.2); Basophils % (auto) 0.1 %; Eosinophils # (auto) 0.02 K/uL (0-0.5); Eosinophils % (auto) 0.2 %; Hematocrit (blood only) 39.5 % (37-47); Immature Granulocytes # (auto) 0.12 K/uL (0.00-0.02); Immature Granulocytes % (auto) 1.1 %; Lymphocytes # (auto) 1.55 K/uL (1.2-3.4); Lymphocytes % (auto) 14.6 %; Mean Corpuscular Hemoglobin 29.5 pg (25-34); Mean Corpuscular Hgb Conc 32.9 g/dL (32-36); Mean Corpuscular Volume 89.6 fL (80-100); Monocytes # (auto) 0.55 K/uL (0.11-0.59); Monocytes % (auto) 5.2 %; Neutrophils # (auto) 8.34 K/uL (1.4-6.5); Neutrophils % (auto) 78.8 %; Platelet Count 270 K/uL (130-400); RDW Coefficient of Variation 14.5 % (11.5-14.5); RDW Standard Deviation 47.5 fL (36.4-46.3); Red Blood Count 4.41 M/uL (4.2-5.4); White Blood Count 10.59 K/uL (4.8-10.8)
[2020-11-21 08:08] LABS: Albumin Level 2.5 gm/dl (3.4-5.0); BUN Creatinine Ratio 17.9 (10-20); Calcium 9.3 mg/dl (8.5-10.1); Creatinine Clr Calc Pharmacy 115.5 ml/min; Est GFR (Non-African American) 94.9 ml/min; Potassium 3.9 mmol/L (3.5-5.1)
[2020-11-21] MEDS: ACETAMINOPHEN 325 MG TAB PO PRN (08:09)
[2020-11-21 08:10] LABS: Albumin Globulin Ratio 0.5 (0.9-2); Bilirubin,Total 0.5 mg/dl (0.2-1); Globulin 5.2 gm/dl (2.5-4.0); Total Protein 7.7 gm/dl (6.4-8.2)
[2020-11-21] MEDS: MUPIROCIN 2% OINT 22 GM TUBE EXT SCH ×2 (08:57→20:51)
[2020-11-21] MEDS: CYANOCOBALAMIN 500 MCG TABLET (VITAMIN B-12) PO SCH (08:58)
[2020-11-21] MEDS: LIDOCAINE 5% 1 PATCH TD SCH (08:58)
[2020-11-21] MEDS: DICLOFENAC SOD 1% GEL 100 GM TUBE EXT SCH ×2 (08:58→20:13)
[2020-11-21] MEDS: FUROSEMIDE 40 MG in SYRINGE 0 ML IV SCH (08:58)
[2020-11-21] MEDS: dexAMETHasone 6 MG in SYRINGE 0 ML IV SCH (08:58)
[2020-11-21] MEDS: buPROPion SR 100 MG TABCR PO SCH ×2 (08:59→20:08)
[2020-11-21] MEDS: SPIRONOLACTONE 25 MG TAB PO SCH (08:59)
[2020-11-21] MEDS: guaiFENesin 600 MG TABCR PO SCH ×2 (08:59→20:09)
[2020-11-21] MEDS: PANTOprazole 40 MG TAB PO SCH ×2 (08:59→20:11)
[2020-11-21] MEDS: ASPIRIN 81 MG ECTAB PO SCH (08:59)
[2020-11-21] MEDS: POTASSIUM CHLORIDE CRTAB 20 MEQ TABCR PO SCH ×2 (08:59→20:12)
[2020-11-21] MEDS ORDERED: ENOXAPARIN INJ 40 MG/0.4 ML SYR SQ SCH (09:00)
[2020-11-21] MEDS: FAMOTIDINE 20 MG in SYRINGE 3 ML IV SCH ×2 (09:00→20:50)
[2020-11-21] MEDS: INSULIN HUMAN NPH SC SCH (09:01)
--- NOTE | 2020-11-21 09:03 | XRay Report ---
XR chest 1V portable CLINICAL HISTORY: worsening COVID pneumonia COMPARISON STUDY: Chest radiograph November 18, 2020 FINDINGS: No pneumothorax or pleural effusion is noted. Lung volumes are similar to prior exam. Cardi ac mediastinal silhouette is stable. Extensive bilateral airspace opacities persist. These are either unchanged or slightly improved. IMPRESSION: Extensive bilateral airspace opacities consistent with viral pneumonia. These are either unchanged or slightly decreased since prior exam. ACT 112: Negative or not required by law. Electronically signed by: Edson Alan M.D. 11/21/2020 9:01 AM
[2020-11-21] MEDS: INSULIN ASPART 100 UNITS/ML 3 ML PEN SC SCH ×4 (09:04→20:50)
[2020-11-21] MEDS ORDERED: IBUPROFEN 800 MG TAB PO STA (10:12)
[2020-11-21] MEDS: ALBUT/IPRATROP 3MG/0.5MG NEB 3 ML VIAL NEB SCH ×4 (11:27→22:10)
--- NOTE | 2020-11-21 12:04 | Pharmacy Report ---
Pharmacy Glycemic Short Note 2 - Date of Service November 21, 2020 - Glycemic Short BSG Results (Last 24 hours): 11/20/20 11/20/20 11/20/20 16:22 18:05 21:02 Glucose 148 H POC Glucose 157 H 118 H 11/21/20 11/21/20 11/21/20 06:53 08:00 11:48 Glucose 100 H POC Glucose 95 127 H OUTPATIENT ANTIDIABETIC REGIMEN: * Basaglar 60 units HS * Ozempic 0.5mg SQ monthly * Metformin ER 1000mg PO BID ASSESSMENT: 11/21 * BSGs well controlled the past two days.Fasting BSG did downtrend yesterday and Lantus dose was decreased by ~12%. Fasting BSG stable today. Post prandial BSGs adequate, will continue with NPH dose and NovoLog scale. * Patient continues on IV dexamethasone and is tolerating a diet. 11/19 * 55 year old female admitted with COVID19, resp failure, type 2 diabetic, obese, A1c 6.3% on 09/27/20. * IV dexamethasone started today - will cover with NPH * Continue Lantus at night for basal needs, fasting BSG 122mg/dl with 45 units given last night, continue * Novolog CF/CR PLAN FOR INPATIENT GLYCEMIC CONTROL: * Hold outpatient Metformin and Ozempic diabetes medications * Basal insulin * Lantus 40 units SQ HS * NPH 40 units SQ daily with IV Dexamethasone * Bolus insulin * NovoLog per scale ACHS or Q6hrs while NPO * Goal Range: Low 110 mg/dL - High 140 mg/dL * Correction Factor: 15 mg/dL/unit * Nutritional / Prandial insulin per carb ratio of 1 unit per 5 grams CHO consumed PLAN FOR DISCHARGE: * A1c 6.3% at goal, continue home regimen
[2020-11-21] MEDS: ENOXAPARIN INJ 60 MG/0.6 ML SYR SQ SCH ×2 (12:23→20:08)
[2020-11-21] MEDS: METOPROLOL TARTRATE 25 MG TAB PO SCH ×2 (12:23→20:10)
[2020-11-21] MEDS: BENZONATATE 100 MG CAPSULE PO SCH ×3 (12:26→20:07)
--- NOTE | 2020-11-21 15:21 | Pulmonology Progress Note ---
Date of Service November 21, 2020 Assessment & Plan (1) Pneumonia due to 2019 novel coronavirus: (2) Acute respiratory failure with hypoxia: (3) Morbid obesity: (4) Asthma: Plan: Chest x-ray as listed above with persistent multifocal opacities. Possibly minimal improvement from prior --Acute hypoxic respiratory failure Secondary to multilobar COVID-19 pneumonia COVID-19 PCR positive CRP 8.8 Procalcitonin 0.14 BNP 74 Continue with O2 supplementation to keep oxygen saturation between 90-92%. Awake proning will be helpful. Patient admits that she is able to do this. She is encouraged to prone as often as possible Continue with incentive spirometry Continue with flutter valve. Patient refusing Remdesivir. Baricitinib startred 11/18/20 Continue dexamethasone 6 mg IV daily Recommend patient to be kept euvolemic to negative balance . [place] catheter in place to gravity --Morbid obesity with probable JIMY Continue with BiPAP/CPAP nightly and as needed shortness of breath --History of anxiety Continue with bupropion She takes Ativan at home as well Plan: Continue CPAP/BiPAP as tolerated Continue to encourage proning Continue negative balance of fluid Continue [place] catheter At this time, patient has maximized medical therapy without endotracheal intubation and mechanical ventilation. Continue to monitor for decline in status. If patient does decline, she is agreeable to mechanical ventilation. The pulmonary service will sign off at this time. Please feel free to reconsult as needed Admission and Anticipated Discharge Date Admission Date: November 18, 2020 Subjective Attending: Dr. Billings Patient seen at bedside. She is currently with high flow O2 with FiO2 of 80% and volume at 60 L/min. She appears to be comfortable. She states that she is feeling better. She does have elicited cough with inspiration. She denies any fever. No diarrhea. No chest pain or tightness. No pleuritic pain. She is unaware of any tachyarrhythmia. She has no other acute complaints at this time. Review of Systems Review of Systems: All systems reviewed & are unremarkable except as noted in Subjective Physical Exam Physical Exam: GENERAL : No acute distress. She appears ill. EYES: No icterus, gaze conjugate NOSE: No evidence of epistaxis. High flow nasal cannula in place MOUTH: No lesions or candidiasis. Mucosa moist NECK: Supple LUNGS: Coarse rales at the bilateral bases. No rhonchi. Diminished breath sounds throughout. HEART: Regular, rate in the 90s ABDOMEN: Soft, NT, ND, BS Present. Abdomen protuberant EXTREMITIES: No LE edema, pedal pulses intact NEURO: A&OX3 Results & Data Results & Data ([facility]) Vital Signs (Past 12 Hours) Vital Signs Temp Pulse Pulse Resp BP Pulse Ox Pulse Ox 11/21/20 11:29 95 H 30 H 94 11/21/20 11:05 37.2 C 105 H 22 127/85 91 11/21/20 09:19 38.4 C H 11/21/20 08:20 108 H 28 H 93 11/21/20 08:00 78 98 11/21/20 07:05 38.1 C H 96 H 22 130/90 95 11/21/20 05:02 92 H 24 93 11/21/20 04:53 96 H 23 92 11/21/20 03:38 37.4 C 87 22 134/85 96 Laboratory Results 11/21/20 06:53 11/21/20 06:53 Diagnostic Findings Chest X-Ray 11/21/20 08:18 XR chest 1V portable CLINICAL HISTORY: worsening COVID pneumonia COMPARISON STUDY: Chest radiograph November 18, 2020 FINDINGS: No pneumothorax or pleural effusion is noted. Lung volumes are similar to prior exam. Cardiac mediastinal silhouette is stable. Extensive bilateral airspace opacities persist. These are either unchanged or slightly improved. IMPRESSION: Extensive bilateral airspace opacities consistent with viral pneumonia. These are either unchanged or slightly decreased since prior exam. ACT 112: Negative or not required by law. Electronically signed by: Edson Alan M.D. 11/21/2020 9:01 AM PG Care Time/CCT Total # of Minutes Spent Total Time Spent with Patient: Total time spent is greater than 50% in coordination of care (as documented) at patient's floor/unit and/or counseling patient:20 minutes Coding Level of Care Code 62299 Subseq Hosp Care Lvl 2 Diagnoses Pneumonia due to 2019 novel coronavirus U07.1; J12.82 Acute respiratory failure with hypoxia J96.01 Morbid obesity E66.01 Asthma J45.909 Time Spent (min) 20
[2020-11-21] MEDS: FLUTICASONE FUROATE 200MCG 14 PUFFS/INHALER INH SCH (16:49)
[2020-11-21] MEDS: 4 mg Once Daily x14 days PO SCH (19:15)
[2020-11-21] MEDS: REMDESIVIR 100 MG in SODIUM CHLORIDE 0.9% 230 ML IV SCH (20:06)
[2020-11-21] MEDS: MONTELUKAST SODIUM 10 MG TABLET PO SCH (20:10)
[2020-11-21] MEDS: INSULIN GLARGINE SOLOSTAR 100 UNITS/ML 3 ML PEN SC SCH (20:54)
[2020-11-21] MEDS: guaiFENesin/CODEINE 100MG/10MG 5ML UDC PO PRN (21:07)
--- NOTE | 2020-11-21 21:40 | Hospitalist Progress Note ---
Date of Service November 21, 2020 Assessment & Plan (1) Pneumonia due to 2019 novel coronavirus: Plan: Severe COVID pneumonia - present on admission. She is ~day 12 into her illness. She is on near max settings of HFNC. Day #4 of baricitinib. Day #4 of IV dexamethasone 6mg daily. Dose #2 of 5 of remdesivir tonight. Procal at admission negative. CRP initially high - improved with steroids/baricitinib. She was encouraged to prone; or, if not possible, then side positioning. Flutter valve/incentive spirometry. For severe cough - nebs qid scheduled, tessalon 200mg TID, lower mucinex to 600mg BID, and may use guaitussin ac q6h prn (has codeine, and has codeine as "allergy", but given the severity of the cough this may be incredibly helpful for her). Plan for BIPAP at HS and HFNC during the day. Appreciate pulmonary consultation and recs. DVT proph - lovenox BID. Her oxygen requirements are concerning and she is at high risk of [facility]. Remains full code. (2) Acute respiratory failure with hypoxia: Plan: 2nd to #1. BNP recently wnl but is diuresing very well with once daily IV lasix. Na level has dropped -- will place lasix on hold after today's dose and re-eval for ongoing diuresis tomorrow. Repeat procal tomorrow am. Strong family history of VTE - low threshold for VTE w/u. (3) Type 2 diabetes mellitus with insulin therapy: Plan: Glycemic recs appreciated from the pharmacy team. Cont NPH, lantus, and novolog. HbA1c <6.5% in September. (4) Hyponatremia: Plan: 2nd to diuresis. Hold lasix, repeat BMP am. (5) Morbid obesity: Plan: BMI 39-40 (6) Asthma: Plan: with exacerbation - 2nd to COVID-19 infection. 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 has significant bronchoconstriction on exam schedule nebs qid. steroids. pulmonary toilet. (7) Hypertension: Plan: cont metoprolol. hold aldactone. (8) GERD (gastroesophageal reflux disease): Plan: PPI twice daily. Also on H2 susan. (9) Atrial flutter, paroxysmal: Plan: History of. No a.fib/flutter while here. Monitor on tele. (10) DVT prophylaxis: Plan: Increase lovenox to 55mg BID (0.5mg/kg BID). High risk of VTE given severity of COVID illness, famHx of VTE, etc. Plan: Extensive update given to pt's this afternoon by phone. All questions answered. Plan of care reviewed. Admission and Anticipated Discharge Date Admission Date: November 18, 2020 Subjective tele overnight wnl. patient was on 90% FiO2 and 60 L during the visit. she coughed most of the time I was in the room. cough would take her breath away. she c/o central chest tightness and dyspnea with minimal activity. she denies abd pain, nausea or emesis. she has fatigue with anorexia. also c/o sore throat. she tried proning the other day but it was very brief. Review of Systems Review of Systems: gen - fever this am, feels very poorly; +sweats/chills CV - no pleuritic pain Pulm - cough, largely dry GI - no vomiting, no diarrhea Physical Exam Physical Exam: Gen - looks unwell, severe/harsh dry cough mouth - MMM neck - no JVD heart - RRR, s1 s2, no murmur lungs - very poor air movement b/l; scattered wheezes, scattered rales bases; taking deep breaths makes her cough worse abd - soft NT ND BS+; no HSM ext - no edema, pulses 2+ b/l psych - a/o x 3 skin - flushed, no rash Results & Data Results & Data ([facility]) Vital Signs (Past 12 Hours) Vital Signs Temp Pulse Resp BP BP Pulse Ox 11/21/20 19:45 37.4 C 90 20 127/83 92 11/21/20 19:23 91 H 26 H 85 L 11/21/20 16:00 36.9 C 88 24 120/83 90 11/21/20 15:51 86 20 92 11/21/20 15:50 85 20 92 11/21/20 11:29 95 H 30 H 94 11/21/20 11:05 37.2 C 105 H 22 127/85 91 Laboratory Results Laboratory Results - last 24 hr 11/21/20 11/21/20 11/21/20 06:53 06:53 08:00 WBC 10.59 RBC 4.41 Hgb 13.0 Hct 39.5 MCV 89.6 MCH 29.5 MCHC 32.9 RDW Std Deviation 47.5 H RDW Coeff of [place] 14.5 Plt Count 270 MPV 9.0 Immature Gran % (Auto) 1.1 Neut % (Auto) 78.8 Lymph % (Auto) 14.6 [place] % (Auto) 5.2 Eos % (Auto) 0.2 Baso % (Auto) 0.1 Neut # (Auto) 8.34 H Lymph # (Auto) 1.55 [place] # (Auto) 0.55 Eos # (Auto) 0.02 Baso # (Auto) 0.01 Immature Gran # (Auto) 0.12 H Sodium 132 L Potassium 3.9 Chloride 100 Carbon Dioxide 23 Anion Gap 9.0 BUN 13 Creatinine 0.72 Est Cr Clr Drug Dosing 115.5 Est GFR ( Amer) 110.0 Est GFR (Non-Af Amer) 94.9 BUN/Creatinine Ratio 17.9 Glucose 100 H POC Glucose 95 Calcium 9.3 Total Bilirubin 0.5 AST 37 ALT 28 Alkaline Phosphatase 86 Total Protein 7.7 Albumin 2.5 L Globulin 5.2 H Albumin/Globulin Ratio 0.5 L 11/21/20 11/21/20 11/21/20 11:48 16:41 20:20 WBC RBC Hgb Hct MCV MCH MCHC RDW Std Deviation RDW Coeff of [place] Plt Count MPV Immature Gran % (Auto) Neut % (Auto) Lymph % (Auto) [place] % (Auto) Eos % (Auto) Baso % (Auto) Neut # (Auto) Lymph # (Auto) [place] # (Auto) Eos # (Auto) Baso # (Auto) Immature Gran # (Auto) Sodium Potassium Chloride Carbon Dioxide Anion Gap BUN Creatinine Est Cr Clr Drug Dosing Est GFR ( Amer) Est GFR (Non-Af Amer) BUN/Creatinine Ratio Glucose POC Glucose 127 H 177 H 126 H Calcium Total Bilirubin AST ALT Alkaline Phosphatase Total Protein Albumin Globulin Albumin/Globulin Ratio Diagnostic Findings Chest X-Ray 11/21/20 08:18 XR chest 1V portable CLINICAL HISTORY: worsening COVID pneumonia COMPARISON STUDY: Chest radiograph November 18, 2020 FINDINGS: No pneumothorax or pleural effusion is noted. Lung volumes are similar to prior exam. Cardiac mediastinal silhouette is stable. Extensive bilateral airspace opacities persist. These are either unchanged or slightly improved. IMPRESSION: Extensive bilateral airspace opacities consistent with viral pneumonia. These are either unchanged or slightly decreased since prior exam. ACT 112: Negative or not required by law. Electronically signed by: Edson Alan M.D. 11/21/2020 9:01 AM PG Care Time/CCT Total # of Minutes Spent Total Time Spent with Patient: Total time spent is greater than 50% in coordination of care (as documented) at patient's floor/unit and/or counseling patient: Coding Level of Care Code 07342 Subseq Hosp Care Lvl 3 Diagnoses Pneumonia due to 2019 novel coronavirus U07.1; J12.82 Acute respiratory failure with hypoxia J96.01 Morbid obesity E66.01 Asthma J45.909 Hypertension I10 GERD (gastroesophageal reflux disease) K21.9 Atrial flutter, paroxysmal I48.92 Type 2 diabetes mellitus with insulin therapy E11.9; Z79.4 Hyponatremia E87.1 DVT prophylaxis Z29.9
[2020-11-22] MEDS: DEXTROMETHORPHAN POLYMR COMPLX 30 MG/5 ML UDP PO PRN ×2 (02:46→21:37)
[2020-11-22] MEDS: guaiFENesin/CODEINE 100MG/10MG 5ML UDC PO PRN ×2 (03:14→23:57)
[2020-11-22] MEDS: ACETAMINOPHEN 325 MG TAB PO PRN ×3 (03:16→18:41)
[2020-11-22 06:31] LABS: Basophils # (auto) 0.03 K/uL (0-0.2); Basophils % (auto) 0.3 %; Eosinophils # (auto) 0.06 K/uL (0-0.5); Eosinophils % (auto) 0.5 %; Hematocrit (blood only) 41.6 % (37-47); Hemoglobin 13.9 g/dL (12.0-16.0); Immature Granulocytes # (auto) 0.48 K/uL (0.00-0.02); Immature Granulocytes % (auto) 4.2 %; Lymphocytes # (auto) 2.37 K/uL (1.2-3.4); Mean Corpuscular Hemoglobin 29.8 pg (25-34); Mean Corpuscular Hgb Conc 33.4 g/dL (32-36); Mean Corpuscular Volume 89.3 fL (80-100); Mean Platelet Volume 9.2 fL (7.4-10.4); Monocytes # (auto) 0.58 K/uL (0.11-0.59); Monocytes % (auto) 5.1 %; Neutrophils # (auto) 7.79 K/uL (1.4-6.5); Neutrophils % (auto) 68.9 %; Platelet Count 298 K/uL (130-400); RDW Coefficient of Variation 14.3 % (11.5-14.5); RDW Standard Deviation 46.5 fL (36.4-46.3); Red Blood Count 4.66 M/uL (4.2-5.4); White Blood Count 11.31 K/uL (4.8-10.8)
[2020-11-22 07:10] LABS: BUN Creatinine Ratio 24.6 (10-20); Calcium 9.5 mg/dl (8.5-10.1); Creatinine Clr Calc Pharmacy 122.6 ml/min; Est GFR (African American) 114.9 ml/min; Est GFR (Non-African American) 99.2 ml/min; Potassium 3.9 mmol/L (3.5-5.1)
[2020-11-22] MEDS: ALBUT/IPRATROP 3MG/0.5MG NEB 3 ML VIAL NEB SCH ×4 (07:18→19:32)
[2020-11-22] MEDS: INSULIN ASPART 100 UNITS/ML 3 ML PEN SC SCH ×4 (08:55→20:57)
[2020-11-22] MEDS: INSULIN HUMAN NPH SC SCH (08:57)
[2020-11-22] MEDS: LORazepam 0.5 MG TAB PO PRN ×2 (09:45→23:57)
[2020-11-22] MEDS: DICLOFENAC SOD 1% GEL 100 GM TUBE EXT SCH ×3 (09:46→20:45)
[2020-11-22] MEDS: FUROSEMIDE 40 MG TAB PO SCH (09:46)
[2020-11-22] MEDS: guaiFENesin 600 MG TABCR PO SCH ×2 (09:46→20:47)
[2020-11-22] MEDS: ENOXAPARIN INJ 60 MG/0.6 ML SYR SQ SCH ×2 (09:47→20:45)
[2020-11-22] MEDS: buPROPion SR 100 MG TABCR PO SCH ×2 (09:47→20:44)
[2020-11-22] MEDS: CYANOCOBALAMIN 500 MCG TABLET (VITAMIN B-12) PO SCH (09:47)
[2020-11-22] MEDS: BENZONATATE 100 MG CAPSULE PO SCH ×3 (09:47→20:44)
[2020-11-22] MEDS: dexAMETHasone 6 MG in SYRINGE 0 ML IV SCH (09:47)
[2020-11-22] MEDS: ASPIRIN 81 MG ECTAB PO SCH (09:48)
[2020-11-22] MEDS: PANTOprazole 40 MG TAB PO SCH ×2 (09:48→20:48)
[2020-11-22] MEDS: LIDOCAINE 5% 1 PATCH TD SCH (09:49)
[2020-11-22] MEDS: POTASSIUM CHLORIDE CRTAB 20 MEQ TABCR PO SCH ×2 (09:49→20:48)
[2020-11-22] MEDS: METOPROLOL TARTRATE 25 MG TAB PO SCH ×2 (09:49→20:47)
[2020-11-22] MEDS: FAMOTIDINE 20 MG in SYRINGE 3 ML IV SCH ×2 (09:50→20:45)
[2020-11-22] MEDS: MUPIROCIN 2% OINT 22 GM TUBE EXT SCH ×2 (09:51→20:48)
[2020-11-22] MEDS: FLUTICASONE FUROATE 200MCG 14 PUFFS/INHALER INH SCH (09:51)
--- NOTE | 2020-11-22 12:19 | Pharmacy Report ---
Pharmacy Glycemic Short Note 2 - Date of Service November 22, 2020 - Glycemic Short BSG Results (Last 24 hours): 11/21/20 11/21/20 11/22/20 16:41 20:20 05:43 Glucose 85 POC Glucose 177 H 126 H 11/22/20 07:38 Glucose POC Glucose 74 OUTPATIENT ANTIDIABETIC REGIMEN: * Basaglar 60 units HS * Ozempic 0.5mg SQ monthly * Metformin ER 1000mg PO BID ASSESSMENT: 11/22 * BSGs again well controlled over last 24 hours * 93 units SQ given over last 24 hrs while tolerating a diet * Dexamethasone 6mg IV daily continues * Fasting BSG 74-85 this AM. She had received 40 units Lantus and 40 units NPH yesterday - will decrease Lantus dose by ~2/3 * Post-prandial BSGs well controlled yesterday, however given today's lower BSGs will reduce Novolog correctional and prandial doses slightly 10/5 * BSGs well controlled the past two days.Fasting BSG did downtrend yesterday and Lantus dose was decreased by ~12%. Fasting BSG stable today. Post prandial BSGs adequate, will continue with NPH dose and NovoLog scale. * Patient continues on IV dexamethasone and is tolerating a diet. 11/19 * 55 year old female admitted with COVID19, resp failure, type 2 diabetic, obese, A1c 6.3% on 09/27/20. * IV dexamethasone started today - will cover with NPH * Continue Lantus at night for basal needs, fasting BSG 122mg/dl with 45 units given last night, continue * Novolog CF/CR PLAN FOR INPATIENT GLYCEMIC CONTROL: * Hold outpatient Metformin and Ozempic diabetes medications * Basal insulin * Decrease Lantus to 15 units SQ HS * NPH 40 units SQ daily with IV Dexamethasone * Bolus insulin - decrease * NovoLog per scale ACHS or Q6hrs while NPO * Goal Range: Low 110 mg/dL - High 140 mg/dL * Correction Factor: 18 mg/dL/unit * Nutritional / Prandial insulin per carb ratio of 1 unit per 6 grams CHO consumed PLAN FOR DISCHARGE: * A1c 6.3% at goal, continue home regimen
[2020-11-22] MEDS: 4 mg Once Daily x14 days PO SCH (18:40)
--- NOTE | 2020-11-22 19:09 | Hospitalist Progress Note ---
Date of Service November 22, 2020 Assessment & Plan (1) Pneumonia due to 2019 novel coronavirus: Plan: SEVERE COVID pneumonia. She is ~day 13 into her illness. She is on max settings of HFNC. Day #5 of baricitinib. Day #5 of IV dexamethasone 6mg daily. Dose #3 of 5 of Remdesivir. Procal at admission negative. Procal again negative today. Abx deferred. CRP initially high - improved with steroids/baricitinib. She was encouraged to prone; or, if not possible, then side positioning. Staff encouraging proned position. We discussed the importance of proning as this technique may prevent the need for intubation. Flutter valve/incentive spirometry -- again encouraged. For severe cough - nebs qid scheduled, tessalon 200mg TID, mucinex 600mg BID, guaitussin ac q6h prn (has codeine as "allergy" but tolerating it. Could try hycodon in lissa of robitussin ac if latter not effective. Plan for BIPAP at HS and HFNC during the day. Explained why BIPAP will be helpful. Appreciate pulmonary consultation and recs. DVT proph - lovenox BID. She is at high risk of needing [facility]. I did speak with Dr Etsrada, her primary outpatient bilingual instructor/scalloper, and he will attempt to speak with her by phone to provide encouragement during this difficult time. (2) Acute respiratory failure with hypoxia: Plan: 2nd to #1. BNP recently wnl but continues with copious diuresis. Cont lasix - change IV to po. Strong family history of VTE - low threshold for VTE w/u. (3) Type 2 diabetes mellitus with insulin therapy: Plan: Glycemic recs appreciated from the pharmacy team. Cont NPH, lantus, and novolog. HbA1c <6.5% in September. (4) Hyponatremia: Plan: 2nd to diuresis. Improved today. BMP am. (5) Morbid obesity: Plan: BMI 39-40 BMI has improved s/p diuresis (6) Asthma: Plan: with exacerbation - 2nd to COVID-19 infection. asthma is longstanding, dating back to [employer] years. has significant bronchoconstriction on exam cont nebs qid, steroids, pulmonary toilet. (7) Hypertension: Plan: cont metoprolol. hold aldactone. (8) GERD (gastroesophageal reflux disease): Plan: PPI twice daily. H2 susan. (9) Atrial flutter, paroxysmal: Plan: History of. No a.fib/flutter while here. Monitor on tele. (10) DVT prophylaxis: Plan: Cont lovenox 60mg BID (0.5mg/kg BID). High risk of VTE given severity of COVID illness, famHx of VTE, etc. Plan: Extensive update given to pt's yesterday and today. He reports that his has mistrust of [facility] as her mother in our hospital years ago. I asked him how we could gain her trust and he wasn't sure. I reassured him that all guideline-based therapies for her COVID were being followed and we were providing everything we can to support her through her severe illness. I offered to ask staff to set him up with a zoom session w/ his - will do that tomorrow AM. He asked about a counselor - I can ask psych to see virtually (by phone, etc) tomorrow. I did tell her that I spoke with Dr Estrada at her request. All questions answered. Plan of care reviewed. He seemed satisfied at the conclusion of our conversation this evening. Patient remains critically ill. ICU attending Dr Victor aware of current status. total time today -- 75 minutes (complex care coordination, multiple phone calls to various providers, discussion w/ , discussions with staff (resp, nursing), etc) Admission and Anticipated Discharge Date Admission Date: November 18, 2020 Subjective pt remains on max settings of HFNC she reports proning last evening - staff report it was very brief declined BIPAP at HS last night has not proned yet today cough is severe - mainly dry tolerating the codeine-based cough syrup but even w/ using it the cough is severe having hard time use flutter valve, etc because it makes her cough continues to have poor appetite and oral intake overall mild central chest tightness with coughing remains dyspneic with any movement no vomiting no diarrhea tele overnight - NSR pt had requested that I call Dr Estrada her primary bilingual instructor/scalloper lastly, she complains it is difficult to swallow because of dry mouth and the food being dry we talked about "moist" diet - this was ordered for her Review of Systems Review of Systems: gen - fatigue, feverish, anorexia, feels very poorly CV - no orthopnea Pulm - severe cough, mainly dry; staff report she is using an albuterol inhaler from home? (in addition to scheduled nebs here) GI - no vomiting Physical Exam Physical Exam: Gen - looks unwell, continues w/ intractable severe dry cough mouth - MMM neck - no JVD heart - RRR, s1 s2, no murmur lungs - again VERY poor air movement b/l; scattered wheezes, scattered rales bd - soft NT ND BS+; no HSM ext - no edema, pulses 2+ b/l psych - a/o x 3, anxious appearing Results & Data Results & Data ([facility]) Vital Signs (Past 12 Hours) Vital Signs Temp Pulse Resp BP Pulse Ox Pulse Ox 11/22/20 15:53 37.3 C 83 21 120/78 90 11/22/20 14:33 87 24 95 11/22/20 10:56 91 H 24 94 11/22/20 08:00 90 11/22/20 07:39 37.0 C 77 25 H 125/80 92 11/22/20 07:18 82 23 91 Laboratory Results Laboratory Results - last 24 hr 11/21/20 11/22/20 11/22/20 20:20 05:43 05:43 WBC 11.31 H RBC 4.66 Hgb 13.9 Hct 41.6 MCV 89.3 MCH 29.8 MCHC 33.4 RDW Std Deviation 46.5 H RDW Coeff of [place] 14.3 Plt Count 298 MPV 9.2 Immature Gran % (Auto) 4.2 Neut % (Auto) 68.9 Lymph % (Auto) 21.0 [place] % (Auto) 5.1 Eos % (Auto) 0.5 Baso % (Auto) 0.3 Neut # (Auto) 7.79 H Lymph # (Auto) 2.37 [place] # (Auto) 0.58 Eos # (Auto) 0.06 Baso # (Auto) 0.03 Immature Gran # (Auto) 0.48 H Sodium Potassium Chloride Carbon Dioxide Anion Gap BUN Creatinine Est Cr Clr Drug Dosing Est GFR ( Amer) Est GFR (Non-Af Amer) BUN/Creatinine Ratio Glucose POC Glucose 126 H Calcium AST ALT Procalcitonin 0.06 11/22/20 11/22/20 11/22/20 05:43 07:38 12:16 WBC RBC Hgb Hct MCV MCH MCHC RDW Std Deviation RDW Coeff of [place] Plt Count MPV Immature Gran % (Auto) Neut % (Auto) Lymph % (Auto) [place] % (Auto) Eos % (Auto) Baso % (Auto) Neut # (Auto) Lymph # (Auto) [place] # (Auto) Eos # (Auto) Baso # (Auto) Immature Gran # (Auto) Sodium 135 L Potassium 3.9 Chloride 102 Carbon Dioxide 23 Anion Gap 9.0 BUN 17 Creatinine 0.68 Est Cr Clr Drug Dosing 122.6 Est GFR ( Amer) 114.9 Est GFR (Non-Af Amer) 99.2 BUN/Creatinine Ratio 24.6 H Glucose 85 POC Glucose 74 128 H Calcium 9.5 AST 34 ALT 32 Procalcitonin 11/22/20 16:19 WBC RBC Hgb Hct MCV MCH MCHC RDW Std Deviation RDW Coeff of [place] Plt Count MPV Immature Gran % (Auto) Neut % (Auto) Lymph % (Auto) [place] % (Auto) Eos % (Auto) Baso % (Auto) Neut # (Auto) Lymph # (Auto) [place] # (Auto) Eos # (Auto) Baso # (Auto) Immature Gran # (Auto) Sodium Potassium Chloride Carbon Dioxide Anion Gap BUN Creatinine Est Cr Clr Drug Dosing Est GFR ( Amer) Est GFR (Non-Af Amer) BUN/Creatinine Ratio Glucose POC Glucose 175 H Calcium AST ALT Procalcitonin PG Care Time/CCT Total # of Minutes Spent Total Time Spent with Patient: Total time spent is greater than 50% in coordination of care (as documented) at patient's floor/unit and/or counseling patient: Prolonged Care Time Prolonged Care Time: Yes 75 Coding Level of Care Code 80431 Subseq Hosp Care Lvl 3 (25 - SIGNIFICANT, SEPARATELY IDENTIFIABLE ) Diagnoses Pneumonia due to 2019 novel coronavirus U07.1; J12.82 Acute respiratory failure with hypoxia J96.01 Type 2 diabetes mellitus with insulin therapy E11.9; Z79.4 Hyponatremia E87.1 Morbid obesity E66.01 Asthma J45.909 Hypertension I10 GERD (gastroesophageal reflux disease) K21.9 Atrial flutter, paroxysmal I48.92 DVT prophylaxis Z29.9 Additional Codes Prolonged Care Time - Prolonged Care Time: Yes ([id number])
[2020-11-22] MEDS: REMDESIVIR 100 MG in SODIUM CHLORIDE 0.9% 230 ML IV SCH (20:37)
[2020-11-22] MEDS: MONTELUKAST SODIUM 10 MG TABLET PO SCH (20:48)
[2020-11-22] MEDS ORDERED: INSULIN GLARGINE SOLOSTAR 100 UNITS/ML 3 ML PEN SC SCH ×2 (21:00)
[2020-11-22] MEDS: SODIUM CHLORIDE 0.9% 10ML FLUSH IV SCH (21:34)
[2020-11-23] MEDS: ALBUTEROL 0.083% NEBU SOLN 3 ML VIAL NEB PRN ×2 (00:02→22:00)
[2020-11-23 06:41] LABS: Hematocrit (blood only) 41.1 % (37-47); Hemoglobin 14.3 g/dL (12.0-16.0); Mean Corpuscular Hemoglobin 30.6 pg (25-34); Mean Corpuscular Hgb Conc 34.8 g/dL (32-36); Mean Corpuscular Volume 87.8 fL (80-100); Mean Platelet Volume 9.4 fL (7.4-10.4); Platelet Count 387 K/uL (130-400); RDW Coefficient of Variation 14.4 % (11.5-14.5); RDW Standard Deviation 46.6 fL (36.4-46.3); Red Blood Count 4.68 M/uL (4.2-5.4); White Blood Count 17.45 K/uL (4.8-10.8)
[2020-11-23 07:07] LABS: Basophils # (auto) 0.05 K/uL (0-0.2); Basophils % (auto) 0.3 %; Eosinophils # (auto) 0.44 K/uL (0-0.5); Eosinophils % (auto) 2.5 %; Immature Granulocytes # (auto) 1.05 K/uL (0.00-0.02); Lymphocytes # (auto) 2.87 K/uL (1.2-3.4); Lymphocytes % (auto) 16.4 %; Monocytes # (auto) 0.65 K/uL (0.11-0.59); Monocytes % (auto) 3.7 %; Neutrophils # (auto) 12.39 K/uL (1.4-6.5); Neutrophils % (auto) 71.1 %
[2020-11-23 07:18] LABS: Calcium 9.7 mg/dl (8.5-10.1); Creatinine Clr Calc Pharmacy 107.8 ml/min; Est GFR (African American) 103.1 ml/min; Est GFR (Non-African American) 88.9 ml/min
[2020-11-23] MEDS: ALBUT/IPRATROP 3MG/0.5MG NEB 3 ML VIAL NEB SCH ×4 (07:23→19:57)
[2020-11-23 07:27] LABS: D Dimer 1490 ug/L FEU (0-500)
[2020-11-23] MEDS: guaiFENesin/CODEINE 100MG/10MG 5ML UDC PO PRN ×2 (08:38→15:42)
[2020-11-23] MEDS: BENZONATATE 100 MG CAPSULE PO SCH ×3 (08:38→21:18)
[2020-11-23] MEDS: FAMOTIDINE 20 MG in SYRINGE 3 ML IV SCH ×2 (08:38→21:18)
[2020-11-23] MEDS: POTASSIUM CHLORIDE CRTAB 20 MEQ TABCR PO SCH ×2 (08:39→21:29)
[2020-11-23] MEDS: dexAMETHasone 6 MG in SYRINGE 0 ML IV SCH (08:39)
[2020-11-23] MEDS: FUROSEMIDE 40 MG TAB PO SCH (08:41)
[2020-11-23] MEDS: guaiFENesin 600 MG TABCR PO SCH ×2 (08:41→21:24)
[2020-11-23] MEDS: LIDOCAINE 5% 1 PATCH TD SCH (08:42)
[2020-11-23] MEDS: METOPROLOL TARTRATE 25 MG TAB PO SCH ×2 (08:42→21:30)
[2020-11-23] MEDS: PANTOprazole 40 MG TAB PO SCH ×2 (08:42→21:27)
[2020-11-23] MEDS: ENOXAPARIN INJ 60 MG/0.6 ML SYR SQ SCH ×2 (08:43→21:23)
[2020-11-23] MEDS: ASPIRIN 81 MG ECTAB PO SCH (08:43)
[2020-11-23] MEDS: buPROPion SR 100 MG TABCR PO SCH ×2 (08:43→21:22)
[2020-11-23] MEDS: CYANOCOBALAMIN 500 MCG TABLET (VITAMIN B-12) PO SCH (08:43)
[2020-11-23] MEDS: DICLOFENAC SOD 1% GEL 100 GM TUBE EXT SCH ×2 (08:45→21:23)
[2020-11-23] MEDS: FLUTICASONE FUROATE 200MCG 14 PUFFS/INHALER INH SCH (08:45)
[2020-11-23] MEDS: MUPIROCIN 2% OINT 22 GM TUBE EXT SCH ×2 (08:50→21:55)
[2020-11-23] MEDS: INSULIN HUMAN NPH SC SCH (09:28)
[2020-11-23] MEDS: INSULIN ASPART 100 UNITS/ML 3 ML PEN SC SCH ×4 (09:28→21:18)
--- NOTE | 2020-11-23 14:24 | Pharmacy Report ---
Pharmacy Glycemic Short Note 2 - Date of Service November 23, 2020 - Glycemic Short BSG Results (Last 24 hours): 11/22/20 11/22/20 11/23/20 16:19 20:17 06:10 Glucose 75 POC Glucose 175 H 162 H 11/23/20 11/23/20 07:13 11:45 Glucose POC Glucose 83 135 H OUTPATIENT ANTIDIABETIC REGIMEN: * Basaglar 60 units HS * Ozempic 0.5mg SQ monthly * Metformin ER 1000mg PO BID ASSESSMENT: 11/23: * Bsgs well controlled again over the last 24 hours. * 61 total units of insulin administered, 55 of basal (40 NPH, 15 units lantus) * Fasting BSG 75-83 mg/dL again today, will reduce lantus further today. * Post prandials well controlled, will continue with current NovoLog score 11/22 * BSGs again well controlled over last 24 hours * 93 units SQ given over last 24 hrs while tolerating a diet * Dexamethasone 6mg IV daily continues * Fasting BSG 74-85 this AM. She had received 40 units Lantus and 40 units NPH yesterday - will decrease Lantus dose by ~2/3 * Post-prandial BSGs well controlled yesterday, however given today's lower BSGs will reduce Novolog correctional and prandial doses slightly 10/5 * BSGs well controlled the past two days.Fasting BSG did downtrend yesterday and Lantus dose was decreased by ~12%. Fasting BSG stable today. Post prandial BSGs adequate, will continue with NPH dose and NovoLog scale. * Patient continues on IV dexamethasone and is tolerating a diet. 11/19 * 55 year old female admitted with COVID19, resp failure, type 2 diabetic, obese, A1c 6.3% on 09/27/20. * IV dexamethasone started today - will cover with NPH * Continue Lantus at night for basal needs, fasting BSG 122mg/dl with 45 units given last night, continue * Novolog CF/CR PLAN FOR INPATIENT GLYCEMIC CONTROL: * Hold outpatient Metformin and Ozempic diabetes medications * Basal insulin * Decrease Lantus to 8 units SQ HS * NPH 40 units SQ daily with IV Dexamethasone * Bolus insulin - decrease * NovoLog per scale ACHS or Q6hrs while NPO * Goal Range: Low 110 mg/dL - High 140 mg/dL * Correction Factor: 18 mg/dL/unit * Nutritional / Prandial insulin per carb ratio of 1 unit per 6 grams CHO consumed PLAN FOR DISCHARGE: * A1c 6.3% at goal, continue home regimen
[2020-11-23] MEDS ORDERED: COUGH DROP (SUGAR FREE) LOZ 24 LOZ/1 BOX BUCCAL ONE (15:57)
[2020-11-23] MEDS ORDERED: COUGH DROP (SUGAR FREE) LOZ 24 LOZ/1 BOX BUCCAL PRN (16:30)
[2020-11-23] MEDS: 4 mg Once Daily x14 days PO SCH (18:32)
--- NOTE | 2020-11-23 20:49 | Hospitalist Progress Note ---
Date of Service November 23, 2020 Assessment & Plan (1) Pneumonia due to 2019 novel coronavirus: Plan: SEVERE COVID pneumonia. She is ~day 14 into her illness. She remains on max settings of HFNC. Day #6 of baricitinib. Day #6 of IV dexamethasone 6mg daily. Dose #4 of 5 of Remdesivir. Procal x 2 both negative. CRP initially high but improved with steroids/baricitinib. Continue proning. Continue aggressive pulmonary toilet. Nebs qid scheduled, tessalon 200mg TID, mucinex 600mg BID, guaitussin ac q6h prn (has codeine as "allergy" but tolerating this). Could try hycodon in lissa of robitussin ac if latter not effective. Encouraged ongoing use of BIPAP at HS and HFNC during the day. DVT proph - lovenox BID. D-dimer today noted. She is at high risk of needing ICU/intubation/mech ventilation given near max settings of HFNC. Appreciate prior pulmonary consultation. (2) Acute respiratory failure with hypoxia: Plan: 2nd to #1. BNP recently wnl but continues with copious diuresis. Has lost at least 10# of fluid weight while here. Cont lasix PO daily. Strong family history of VTE - low threshold for VTE w/u if any sudden worsening. (3) Type 2 diabetes mellitus with insulin therapy: Plan: Glycemic recs appreciated from the pharmacy team. Cont NPH, lantus, and novolog. HbA1c <6.5% in September. (4) Hyponatremia: Plan: 2nd to diuresis. Improved and stable. BMP am. (5) Morbid obesity: Plan: BMI has improved s/p diuresis BMI now 37.8 (6) Asthma: Plan: with exacerbation - 2nd to COVID-19 infection. asthma is longstanding, dating back to [employer] years. has significant bronchoconstriction on exam cont nebs qid, steroids, pulmonary toilet. see above. follows w/ Dr Sina Estrada. (7) Hypertension: Plan: cont metoprolol. hold aldactone. (8) GERD (gastroesophageal reflux disease): Plan: PPI twice daily. H2 susan. (9) Atrial flutter, paroxysmal: Plan: History of. No a.fib/flutter while here. Monitor on tele. (10) DVT prophylaxis: Plan: Cont lovenox 60mg BID (0.5mg/kg BID). High risk of VTE given severity of COVID illness, famHx of VTE, etc. Plan: ear and throat complaints - afrin nasal spray 1 spray both nostrils BID x 3 days. cepacol lozenges. nasal saline spray. extensively updated pt's again this evening with plan of care Admission and Anticipated Discharge Date Admission Date: November 18, 2020 Subjective tele overnight wnl pt states she overall feels a little better she stood up at side of bed today and had dyspnea but not as severe as previous she wore BIPAP most of the night last pm prior to such she proned for ~2 hours per staff has not proned today appetite fair still coughing - coughing fits often lead to desaturation and further dyspnea no abd pain no further fevers Review of Systems Review of Systems: gen - fatigue, poor appetite CV - mild chest tightness with coughing pulm - ongoing dry cough, wheeze, dyspnea GI - no pain, nausea or emesis HENT - sore throat remains despite magic mouthwash; ears full b/l, popping sensation Physical Exam Physical Exam: Gen - looks a little better today, not coughing as much, no distress mouth - MMM throat - tonsils absent, injection near the uvula neck - no JVD heart - RRR, s1 s2, no murmur lungs - air movement modestly improved today; still with fine rales and wheezes bd - soft NT ND BS+; no HSM ext - no edema, pulses 2+ b/l psych - a/o x 3, anxious Results & Data Results & Data ([facility]) Vital Signs (Past 12 Hours) Vital Signs Temp Pulse Pulse Resp BP BP Pulse Ox 11/23/20 19:58 89 27 H 90 11/23/20 19:13 37.1 C 92 H 27 H 134/80 93 11/23/20 15:57 37.1 C 92 H 29 H 145/90 H 91 11/23/20 15:42 97 H 22 91 11/23/20 11:49 37.2 C 96 H 22 116/77 91 11/23/20 11:44 95 H 26 H 93 Laboratory Results Laboratory Results - last 24 hr 11/23/20 11/23/20 11/23/20 06:10 06:10 06:10 WBC 17.45 H RBC 4.68 Hgb 14.3 Hct 41.1 MCV 87.8 MCH 30.6 MCHC 34.8 RDW Std Deviation 46.6 H RDW Coeff of [place] 14.4 Plt Count 387 MPV 9.4 Immature Gran % (Auto) 6.0 Neut % (Auto) 71.1 Lymph % (Auto) 16.4 [place] % (Auto) 3.7 Eos % (Auto) 2.5 Baso % (Auto) 0.3 Neut # (Auto) 12.39 H Lymph # (Auto) 2.87 [place] # (Auto) 0.65 H Eos # (Auto) 0.44 Baso # (Auto) 0.05 Immature Gran # (Auto) 1.05 H D-Dimer 1490 H* Sodium 134 L Potassium 4.0 Chloride 103 Carbon Dioxide 25 Anion Gap 6.0 BUN 21 H Creatinine 0.76 Est Cr Clr Drug Dosing 107.8 Est GFR ( Amer) 103.1 Est GFR (Non-Af Amer) 88.9 BUN/Creatinine Ratio 28.0 H Glucose 75 POC Glucose Calcium 9.7 AST 27 ALT 26 11/23/20 11/23/20 11/23/20 07:13 11:45 16:29 WBC RBC Hgb Hct MCV MCH MCHC RDW Std Deviation RDW Coeff of [place] Plt Count MPV Immature Gran % (Auto) Neut % (Auto) Lymph % (Auto) [place] % (Auto) Eos % (Auto) Baso % (Auto) Neut # (Auto) Lymph # (Auto) [place] # (Auto) Eos # (Auto) Baso # (Auto) Immature Gran # (Auto) D-Dimer Sodium Potassium Chloride Carbon Dioxide Anion Gap BUN Creatinine Est Cr Clr Drug Dosing Est GFR ( Amer) Est GFR (Non-Af Amer) BUN/Creatinine Ratio Glucose POC Glucose 83 135 H 178 H Calcium AST ALT 11/23/20 20:15 WBC RBC Hgb Hct MCV MCH MCHC RDW Std Deviation RDW Coeff of [place] Plt Count MPV Immature Gran % (Auto) Neut % (Auto) Lymph % (Auto) [place] % (Auto) Eos % (Auto) Baso % (Auto) Neut # (Auto) Lymph # (Auto) [place] # (Auto) Eos # (Auto) Baso # (Auto) Immature Gran # (Auto) D-Dimer Sodium Potassium Chloride Carbon Dioxide Anion Gap BUN Creatinine Est Cr Clr Drug Dosing Est GFR ( Amer) Est GFR (Non-Af Amer) BUN/Creatinine Ratio Glucose POC Glucose 168 H Calcium AST ALT PG Care Time/CCT Total # of Minutes Spent Total Time Spent with Patient: Total time spent is greater than 50% in coordination of care (as documented) at patient's floor/unit and/or counseling patient: Coding Level of Care Code 75110 Subseq Hosp Care Lvl 3 Diagnoses Pneumonia due to 2019 novel coronavirus U07.1; J12.82 Acute respiratory failure with hypoxia J96.01 Type 2 diabetes mellitus with insulin therapy E11.9; Z79.4 Hyponatremia E87.1 Morbid obesity E66.01 Asthma J45.909 Hypertension I10 GERD (gastroesophageal reflux disease) K21.9 Atrial flutter, paroxysmal I48.92 DVT prophylaxis Z29.9
[2020-11-23] MEDS: REMDESIVIR 100 MG in SODIUM CHLORIDE 0.9% 230 ML IV SCH (21:17)
[2020-11-23] MEDS: MONTELUKAST SODIUM 10 MG TABLET PO SCH (21:17)
[2020-11-23] MEDS: DEXTROMETHORPHAN POLYMR COMPLX 30 MG/5 ML UDP PO PRN (21:21)
[2020-11-23] MEDS: OXYMETAZOLINE 0.05% 30 ML BTL SCH (21:27)
[2020-11-23] MEDS: INSULIN GLARGINE SOLOSTAR 100 UNITS/ML 3 ML PEN SC SCH (21:31)
[2020-11-23] MEDS: LORazepam 0.5 MG TAB PO PRN (22:18)
[2020-11-23] MEDS: SODIUM CHLORIDE 0.9% 10ML FLUSH IV SCH (22:48)
[2020-11-24] MEDS: DEXTROMETHORPHAN POLYMR COMPLX 30 MG/5 ML UDP PO PRN ×3 (03:08→19:38)
[2020-11-24 07:25] LABS: BUN Creatinine Ratio 31.2 (10-20); Calcium 9.5 mg/dl (8.5-10.1); Creatinine Clr Calc Pharmacy 111.6 ml/min; Est GFR (African American) 106.5 ml/min; Est GFR (Non-African American) 91.8 ml/min; Magnesium 2.4 mg/dl (1.8-2.4); Potassium 3.9 mmol/L (3.5-5.1)
[2020-11-24] MEDS: ALBUT/IPRATROP 3MG/0.5MG NEB 3 ML VIAL NEB SCH ×4 (07:30→19:58)
[2020-11-24] MEDS: FAMOTIDINE 20 MG in SYRINGE 3 ML IV SCH ×2 (08:56→21:05)
[2020-11-24] MEDS: CYANOCOBALAMIN 500 MCG TABLET (VITAMIN B-12) PO SCH (08:57)
[2020-11-24] MEDS: POTASSIUM CHLORIDE CRTAB 20 MEQ TABCR PO SCH ×2 (08:57→21:09)
[2020-11-24] MEDS: guaiFENesin 600 MG TABCR PO SCH ×2 (08:57→21:04)
[2020-11-24] MEDS: FLUTICASONE FUROATE 200MCG 14 PUFFS/INHALER INH SCH (08:58)
[2020-11-24] MEDS: BENZONATATE 100 MG CAPSULE PO SCH ×3 (08:58→21:07)
[2020-11-24] MEDS: ASPIRIN 81 MG ECTAB PO SCH (08:58)
[2020-11-24] MEDS: ENOXAPARIN INJ 60 MG/0.6 ML SYR SQ SCH ×2 (08:59→21:02)
[2020-11-24] MEDS: DICLOFENAC SOD 1% GEL 100 GM TUBE EXT SCH ×2 (09:00→21:03)
[2020-11-24] MEDS: INSULIN HUMAN NPH SC SCH (09:01)
[2020-11-24] MEDS: METOPROLOL TARTRATE 25 MG TAB PO SCH ×2 (09:01→21:05)
[2020-11-24] MEDS: LIDOCAINE 5% 1 PATCH TD SCH (09:01)
[2020-11-24] MEDS: dexAMETHasone 6 MG in SYRINGE 0 ML IV SCH (09:03)
[2020-11-24] MEDS: buPROPion SR 100 MG TABCR PO SCH ×2 (09:04→21:06)
[2020-11-24] MEDS: PANTOprazole 40 MG TAB PO SCH ×2 (09:04→21:08)
[2020-11-24] MEDS: MUPIROCIN 2% OINT 22 GM TUBE EXT SCH ×2 (09:05→21:06)
[2020-11-24] MEDS: OXYMETAZOLINE 0.05% 30 ML BTL SCH ×2 (09:05→21:07)
[2020-11-24] MEDS: INSULIN ASPART 100 UNITS/ML 3 ML PEN SC SCH ×4 (09:06→21:11)
[2020-11-24] MEDS: LORazepam 0.5 MG TAB PO PRN (10:54)
[2020-11-24] MEDS: POLYETHYLENE (MIRALAX) 17 GM PACK PO SCH (15:50)
[2020-11-24] MEDS: SENNA 8.6 MG TAB PO SCH (15:50)
[2020-11-24] MEDS: 4 mg Once Daily x14 days PO SCH (18:07)
[2020-11-24] MEDS: ACETAMINOPHEN 325 MG TAB PO PRN (18:49)
--- NOTE | 2020-11-24 19:02 | Hospitalist Progress Note ---
Date of Service November 24, 2020 Assessment & Plan (1) Pneumonia due to 2019 novel coronavirus: Plan: SEVERE COVID pneumonia. Remains critically ill. No significant improvement. She is ~day 15 into her illness. She remains on max settings of HFNC. Day #7 of baricitinib. Day #7 of IV dexamethasone 6mg daily. Dose #5 of 5 of Remdesivir today. Procal x 2 both negative. CRP initially high but improved with steroids/baricitinib. Continue proning. Continue aggressive pulmonary toilet. Nebs qid scheduled, tessalon 200mg TID, mucinex 600mg BID, guaitussin ac q6h prn (has codeine as "allergy" but tolerating this). Encouraged ongoing use of BIPAP at HS and HFNC during the day. DVT proph - lovenox BID. She is at high risk of needing ICU/intubation/mech ventilation given near max settings of HFNC. Appreciate prior pulmonary consultation. Repeat labs AM; consider repeat cxr in am. Na worse today -- hold further diuresis. (2) Acute respiratory failure with hypoxia: Plan: 2nd to #1. Strong family history of VTE - low threshold for VTE w/u if any sudden worsening. 10-15 # of weight loss with diuresis but Na now trending down - hold lasix. Cont other plans as in #1. (3) Type 2 diabetes mellitus with insulin therapy: Plan: Glycemic recs appreciated from the pharmacy team. Cont NPH, lantus, and novolog. HbA1c <6.5% in September. (4) Hyponatremia: Plan: 2nd to diuresis. Hold lasix. BMP am. (5) Morbid obesity: Plan: BMI has improved s/p diuresis BMI high 30s (6) Asthma: Plan: with exacerbation - 2nd to COVID-19 infection. 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 has significant bronchoconstriction on exam cont nebs qid, steroids, pulmonary toilet. see above. follows w/ Dr Sina Estrada. Dr Estrada updated this week - he spoke with patient by phone, he gave encouragement. (7) Hypertension: Plan: cont metoprolol. hold aldactone. (8) GERD (gastroesophageal reflux disease): Plan: PPI twice daily. H2 susan. (9) Atrial flutter, paroxysmal: Plan: History of. No a.fib/flutter while here. Monitor on tele. (10) DVT prophylaxis: Plan: Cont lovenox 60mg BID (0.5mg/kg BID). High risk of VTE given severity of COVID illness, famHx of VTE, etc. (11) Constipation: Plan: add senna add miralax Plan: extensively updated pt's again this evening with plan of care have updated him nightly this week Admission and Anticipated Discharge Date Admission Date: November 18, 2020 Subjective tele remains normal pt actively proning during my visit she was somewhat sleepy she had "rough morning" - coughing fit, issues w/ BIPAP mask, anxiety - then pulled the BIPAP off more comfortable on high-flow appetite remains poor cough is dry still dyspneic w/ any movement no abd pain constipated Review of Systems Review of Systems: gen - extreme fatigue, no fevers cp - no orthopnea, no chest pain pulm - ongoing cough, dyspnea, ANDERSEN gi - no N/V Physical Exam Physical Exam: Gen - proning, no distress, sleepy this am mouth - lips dry heart - RRR, s1 s2, no murmur lungs - posterior lungs with scantly improved air movement b/l, but extensive rales/end-exp wheeze remain, no distress abd - deferred due to proned status ext - no edema, warm, pulses 2+ b/l psych - a/o x 3 Results & Data Results & Data ([facility]) Vital Signs (Past 12 Hours) Vital Signs Temp Pulse Pulse Pulse Resp BP BP 11/24/20 15:33 84 22 11/24/20 15:32 84 22 11/24/20 15:30 37.3 C 96 H 22 126/89 11/24/20 11:45 37.3 C 90 82 H 116/86 11/24/20 10:40 89 22 11/24/20 10:39 89 22 11/24/20 08:15 36.8 C 96 H 20 153/94 H 11/24/20 08:00 87 11/24/20 07:32 96 H 20 11/24/20 07:31 96 H 20 Pulse Ox 11/24/20 15:33 92 11/24/20 15:32 92 11/24/20 15:30 92 11/24/20 11:45 90 11/24/20 10:40 90 10/08/21 10:39 90 11/24/20 08:15 91 11/24/20 08:00 11/24/20 07:32 90 11/24/20 07:31 90 Laboratory Results Laboratory Results - last 24 hr 11/23/20 11/24/20 11/24/20 20:15 06:35 07:58 Sodium 131 L Potassium 3.9 Chloride 102 Carbon Dioxide 23 Anion Gap 6.0 BUN 23 H Creatinine 0.74 Est Cr Clr Drug Dosing 111.6 Est GFR ( Amer) 106.5 Est GFR (Non-Af Amer) 91.8 BUN/Creatinine Ratio 31.2 H Glucose 90 POC Glucose 168 H 91 Calcium 9.5 Magnesium 2.4 AST 34 ALT 28 11/24/20 11/24/20 12:19 16:32 Sodium Potassium Chloride Carbon Dioxide Anion Gap BUN Creatinine Est Cr Clr Drug Dosing Est GFR ( Amer) Est GFR (Non-Af Amer) BUN/Creatinine Ratio Glucose POC Glucose 130 H 130 H Calcium Magnesium AST ALT PG Care Time/CCT Total # of Minutes Spent Total Time Spent with Patient: Total time spent is greater than 50% in coordination of care (as documented) at patient's floor/unit and/or counseling patient: Coding Level of Care Code 07635 Subseq Hosp Care Lvl 3 Diagnoses Pneumonia due to 2019 novel coronavirus U07.1; J12.82 Acute respiratory failure with hypoxia J96.01 Type 2 diabetes mellitus with insulin therapy E11.9; Z79.4 Hyponatremia E87.1 Morbid obesity E66.01 Asthma J45.909 Hypertension I10 GERD (gastroesophageal reflux disease) K21.9 Atrial flutter, paroxysmal I48.92 DVT prophylaxis Z29.9 Constipation K59.00
[2020-11-24] MEDS: REMDESIVIR 100 MG in SODIUM CHLORIDE 0.9% 230 ML IV SCH (19:33)
[2020-11-24] MEDS: MoRPHine SULFATE 2 MG/ML CARP IV PRN (19:42)
[2020-11-24] MEDS: SODIUM CHLORIDE 0.9% 10ML FLUSH IV SCH (21:01)
[2020-11-24] MEDS: MONTELUKAST SODIUM 10 MG TABLET PO SCH (21:08)
[2020-11-24] MEDS: INSULIN GLARGINE SOLOSTAR 100 UNITS/ML 3 ML PEN SC SCH (21:12)
[2020-11-24] MEDS: ALBUTEROL 0.083% NEBU SOLN 3 ML VIAL NEB PRN (23:23)
[2020-11-25] MEDS: DEXTROMETHORPHAN POLYMR COMPLX 30 MG/5 ML UDP PO PRN ×3 (04:14→20:19)
[2020-11-25] MEDS: LORazepam 0.5 MG TAB PO PRN (04:17)
[2020-11-25] MEDS: ALBUT/IPRATROP 3MG/0.5MG NEB 3 ML VIAL NEB SCH ×5 (07:10→23:09)
[2020-11-25 07:24] LABS: Hematocrit (blood only) 41.7 % (37-47); Mean Corpuscular Hemoglobin 29.5 pg (25-34); Mean Corpuscular Hgb Conc 33.6 g/dL (32-36); Mean Corpuscular Volume 87.8 fL (80-100); Mean Platelet Volume 9.5 fL (7.4-10.4); Platelet Count 461 K/uL (130-400); RDW Coefficient of Variation 14.5 % (11.5-14.5); RDW Standard Deviation 46.4 fL (36.4-46.3); Red Blood Count 4.75 M/uL (4.2-5.4); White Blood Count 22.02 K/uL (4.8-10.8)
[2020-11-25 07:46] LABS: BUN Creatinine Ratio 26.1 (10-20); Calcium 9.3 mg/dl (8.5-10.1); Creatinine Clr Calc Pharmacy 104.6 ml/min; Est GFR (African American) 98.4 ml/min; Est GFR (Non-African American) 84.9 ml/min; Potassium 4.2 mmol/L (3.5-5.1)
[2020-11-25] MEDS: INSULIN ASPART 100 UNITS/ML 3 ML PEN SC SCH ×4 (08:15→20:23)
--- NOTE | 2020-11-25 09:19 | XRay Report ---
XR chest 1V portable HISTORY: 55 years-old Female COVID-19, worsening WBC, interval chge acute shortness of breath with l eukocytosis COMPARISON: Chest radiograph 11/21/2020 TECHNIQUE: Portable AP view of the chest FINDINGS: Cardiac silhouette is enlarged. Persistent interstitial coarsening with ill-defined bilateral airspac e opacities, mildly improved. No pneumothorax or large pleural effusion. No acute fracture. IMPRESSION: Moderately improved aeration of the lungs. ACT 112: Negative or not required by law. The above report was generated using voice recognition software. It may contain grammatical, syntax o r spelling errors. Electronically signed by: Catrachito Foote M.D. 11/25/2020 9:17 AM
[2020-11-25] MEDS: PANTOprazole 40 MG TAB PO SCH ×2 (10:10→20:26)
[2020-11-25] MEDS: FLUTICASONE FUROATE 200MCG 14 PUFFS/INHALER INH SCH (10:11)
[2020-11-25] MEDS: ENOXAPARIN INJ 60 MG/0.6 ML SYR SQ SCH ×2 (10:12→20:21)
[2020-11-25] MEDS: guaiFENesin 600 MG TABCR PO SCH ×2 (10:12→20:18)
[2020-11-25] MEDS: LIDOCAINE 5% 1 PATCH TD SCH (10:13)
[2020-11-25] MEDS: MUPIROCIN 2% OINT 22 GM TUBE EXT SCH ×2 (10:14→20:19)
[2020-11-25] MEDS: METOPROLOL TARTRATE 25 MG TAB PO SCH ×2 (10:14→20:18)
[2020-11-25] MEDS: FAMOTIDINE 20 MG in SYRINGE 3 ML IV SCH ×2 (10:16→20:22)
[2020-11-25] MEDS: ASPIRIN 81 MG ECTAB PO SCH (10:16)
[2020-11-25] MEDS: buPROPion SR 100 MG TABCR PO SCH ×2 (10:17→20:18)
[2020-11-25] MEDS: CYANOCOBALAMIN 500 MCG TABLET (VITAMIN B-12) PO SCH (10:17)
[2020-11-25] MEDS: BENZONATATE 100 MG CAPSULE PO SCH ×3 (10:18→20:17)
[2020-11-25] MEDS: dexAMETHasone 6 MG in SYRINGE 0 ML IV SCH (10:19)
[2020-11-25] MEDS: INSULIN HUMAN NPH SC SCH (10:20)
[2020-11-25] MEDS: DICLOFENAC SOD 1% GEL 100 GM TUBE EXT SCH ×2 (10:20→20:18)
[2020-11-25] MEDS: OXYMETAZOLINE 0.05% 30 ML BTL SCH ×2 (10:23→20:19)
[2020-11-25] MEDS: SENNA 8.6 MG TAB PO SCH (10:24)
[2020-11-25] MEDS: POLYETHYLENE (MIRALAX) 17 GM PACK PO SCH (10:25)
[2020-11-25] MEDS: POTASSIUM CHLORIDE CRTAB 20 MEQ TABCR PO SCH ×2 (10:25→20:27)
--- NOTE | 2020-11-25 10:50 | Pharmacy Report ---
Pharmacy Glycemic Short Note 2 - Date of Service November 25, 2020 - Glycemic Short BSG Results (Last 24 hours): 11/24/20 11/24/20 11/24/20 12:19 16:32 20:09 Glucose POC Glucose 130 H 130 H 133 H 11/25/20 11/25/20 06:43 07:45 Glucose 86 POC Glucose 86 OUTPATIENT ANTIDIABETIC REGIMEN: * Basaglar 60 units HS * Ozempic 0.5mg SQ monthly * Metformin ER 1000mg PO BID ASSESSMENT: 11/25 * Pt has received 50 units of insulin over the past 24hrs * 8 units of basal with Lantus * 40 units of NPH for steroid induced hyperglycemia * 2 units of bolus with NovoLog * BSGs all <180mg/dl. Well controlled. * PO intake remains low. * No changes needed today. 11/23: * Bsgs well controlled again over the last 24 hours. * 61 total units of insulin administered, 55 of basal (40 NPH, 15 units lantus) * Fasting BSG 75-83 mg/dL again today, will reduce lantus further today. * Post prandials well controlled, will continue with current NovoLog score 11/22 * BSGs again well controlled over last 24 hours * 93 units SQ given over last 24 hrs while tolerating a diet * Dexamethasone 6mg IV daily continues * Fasting BSG 74-85 this AM. She had received 40 units Lantus and 40 units NPH yesterday - will decrease Lantus dose by ~2/3 * Post-prandial BSGs well controlled yesterday, however given today's lower BSGs will reduce Novolog correctional and prandial doses slightly 10/5 * BSGs well controlled the past two days.Fasting BSG did downtrend yesterday and Lantus dose was decreased by ~12%. Fasting BSG stable today. Post prandial BSGs adequate, will continue with NPH dose and NovoLog scale. * Patient continues on IV dexamethasone and is tolerating a diet. 11/19 * 55 year old female admitted with COVID19, resp failure, type 2 diabetic, obese, A1c 6.3% on 09/27/20. * IV dexamethasone started today - will cover with NPH * Continue Lantus at night for basal needs, fasting BSG 122mg/dl with 45 units given last night, continue * Novolog CF/CR PLAN FOR INPATIENT GLYCEMIC CONTROL: * Hold outpatient Metformin and Ozempic diabetes medications * Basal insulin * Lantus to 8 units SQ HS * NPH 40 units SQ daily with IV Dexamethasone * Bolus insulin * NovoLog per scale ACHS or Q6hrs while NPO * Goal Range: Low 110 mg/dL - High 140 mg/dL * Correction Factor: 18 mg/dL/unit * Nutritional / Prandial insulin per carb ratio of 1 unit per 6 grams CHO consumed PLAN FOR DISCHARGE: * A1c 6.3% at goal, continue home regimen
[2020-11-25] MEDS: MoRPHine SULFATE 2 MG/ML CARP IV PRN (10:59)
[2020-11-25] MEDS ORDERED: FUROSEMIDE 20 MG in SYRINGE 0 ML IV ONE (11:14)
[2020-11-25] MEDS ORDERED: FUROSEMIDE 40 MG/4 ML VIAL IV ONE (11:30)
--- NOTE | 2020-11-25 11:45 | Hospitalist Progress Note ---
Date of Service November 25, 2020 Assessment & Plan (1) Pneumonia due to 2019 novel coronavirus: Plan: SEVERE COVID pneumonia. Remains critically ill. She is ~day 16 into her illness. She remains on max settings of HFNC. Day #8 of baricitinib. Day #8 of IV dexamethasone 6mg daily. Completed 5-day course of Remdesivir. Procal x 2 both negative. CRP initially high but improved with steroids/baricitinib. Continue proning when on HFNC, but unable to remove BIPAP overnight or this am. Continue aggressive pulmonary toilet. Nebs qid scheduled, tessalon 200mg TID, mucinex 600mg BID, guaitussin ac q6h prn. DVT proph - lovenox BID. To keep negative I/O balance once again will give lasix 20mg IV x 1. She was on 100% FiO2 during the visit with sats >95%; asked respiratory to wean such as tolerated. CXR obtained today- airation improved on such. No new infiltrates. Prognosis remains guarded; she understands she is at high risk of intubation/[facility] ventilation. (2) Acute respiratory failure with hypoxia: Plan: 2nd to #1. Strong family history of VTE - low threshold for VTE w/u if any sudden worsening. 10-15 # of weight loss with diuresis during the stay - will give 20mg of lasix a gain today. Cont other plans as in #1. (3) Type 2 diabetes mellitus with insulin therapy: Plan: Glycemic recs appreciated from the pharmacy team. Cont NPH, lantus, and novolog. HbA1c <6.5% in September. (4) Hyponatremia: Plan: 2nd to diuresis. Na 133 today. BMP am. (5) Morbid obesity: Plan: BMI has improved s/p diuresis BMI high 30s (6) Asthma: Plan: with exacerbation - 2nd to COVID-19 infection. 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 has significant bronchoconstriction on exam cont nebs qid, steroids, pulmonary toilet. see above. follows w/ Dr Sina Estrada. Dr Estrada was updated this week - he spoke with patient by phone, he gave encouragement. (7) Hypertension: Plan: cont metoprolol. hold aldactone. (8) GERD (gastroesophageal reflux disease): Plan: PPI twice daily. H2 susan. (9) Atrial flutter, paroxysmal: Plan: History of. No a.fib/flutter while here. Monitor on tele. (10) DVT prophylaxis: Plan: Cont lovenox 60mg BID (0.5mg/kg BID). High risk of VTE given severity of COVID illness, famHx of VTE, etc. (11) Constipation: Plan: senna + miralax (12) Leukocytosis: Plan: CXR obtained today - airation improved, no worsening infiltrates suspect leukocytosis is 2nd to effects from steroids repeat in 48 hours Plan: updated pt's again this evening with plan of care have updated him each night this week Admission and Anticipated Discharge Date Admission Date: November 18, 2020 Subjective patient on BiPAP most of the night last pm and again this am unfortunately with the BiPAP off her desats were profound and fast - dropped to 70s instantly with slow recovery coughing - no change denies chest pain she is thirsty still no appetite tele stable overnight Review of Systems Review of Systems: gen - fatigue, anorexia remain CV - no cp, no orthopnea pulm - wheezing, coughing fits GI - no N/V or abd pain ENT - still w/ sore throat along with dry mouth psych - anxious Physical Exam Physical Exam: Gen - BIPAP mask on, no distress, difficult to communicate because of mask mouth - lips dry heart - RRR, s1 s2, no murmur lungs - extensive rales/end-exp wheezes b/l abd - soft, NT, ND, BS+ ext - no edema, pulses 2+ b/l psych - a/o x 3 skin - no rash, face is flushed Results & Data Results & [facility] ([facility]) Vital Signs (Past 12 Hours) Vital Signs Temp Pulse Pulse Pulse Resp BP Pulse Ox 11/25/20 11:43 38.4 C H 103 H 20 110/68 94 11/25/20 11:39 102 H 26 H 100 11/25/20 11:38 101 H 28 H 100 11/25/20 08:04 31 H 11/25/20 08:00 88 11/25/20 07:11 86 88 30 H 98 11/25/20 06:51 36.8 C 84 20 132/85 97 11/25/20 04:31 89 26 H 94 11/25/20 03:53 77 23 89 L 11/25/20 03:00 36.6 C 81 20 121/86 87 L Laboratory Results Laboratory Results - last 24 hr 11/24/20 11/24/20 11/24/20 12:19 16:32 20:09 WBC RBC Hgb Hct MCV MCH MCHC RDW Std Deviation RDW Coeff of [place] Plt Count MPV Sodium Potassium Chloride Carbon Dioxide Anion Gap BUN Creatinine Est Cr Clr Drug Dosing Est GFR ( Amer) Est GFR (Non-Af Amer) BUN/Creatinine Ratio Glucose POC Glucose 130 H 130 H 133 H Calcium AST ALT 11/25/20 11/25/20 11/25/20 06:43 06:43 07:45 WBC 22.02 H RBC 4.75 Hgb 14.0 Hct 41.7 MCV 87.8 MCH 29.5 MCHC 33.6 RDW Std Deviation 46.4 H RDW Coeff of [place] 14.5 Plt Count 461 H MPV 9.5 Sodium 133 L Potassium 4.2 Chloride 103 Carbon Dioxide 22 Anion Gap 8.0 BUN 21 H Creatinine 0.79 Est Cr Clr Drug Dosing 104.6 Est GFR ( Amer) 98.4 Est GFR (Non-Af Amer) 84.9 BUN/Creatinine Ratio 26.1 H Glucose 86 POC Glucose 86 Calcium 9.3 AST 31 ALT 25 11/25/20 11:39 WBC RBC Hgb Hct MCV MCH MCHC RDW Std Deviation RDW Coeff of [place] Plt Count MPV Sodium Potassium Chloride Carbon Dioxide Anion Gap BUN Creatinine Est Cr Clr Drug Dosing Est GFR ( Amer) Est GFR (Non-Af Amer) BUN/Creatinine Ratio Glucose POC Glucose 123 H Calcium AST ALT PG Care Time/CCT Total # of Minutes Spent Total Time Spent with Patient: Total time spent is greater than 50% in coordination of care (as documented) at patient's floor/unit and/or counseling patient: Coding Level of Care Code 00615 Subseq Hosp Care Lvl 2 Diagnoses Pneumonia due to 2019 novel coronavirus U07.1; J12.82 Acute respiratory failure with hypoxia J96.01 Type 2 diabetes mellitus with insulin therapy E11.9; Z79.4 Hyponatremia E87.1 Morbid obesity E66.01 Asthma J45.909 Hypertension I10 GERD (gastroesophageal reflux disease) K21.9 Atrial flutter, paroxysmal I48.92 DVT prophylaxis Z29.9 Constipation K59.00 Leukocytosis D72.829
[2020-11-25] MEDS: 4 mg Once Daily x14 days PO SCH (18:32)
[2020-11-25] MEDS: INSULIN GLARGINE SOLOSTAR 100 UNITS/ML 3 ML PEN SC SCH (20:22)
[2020-11-25] MEDS: MONTELUKAST SODIUM 10 MG TABLET PO SCH (20:27)
[2020-11-25] MEDS: LORazepam 0.25 MG/0.5 ML VIAL IV PRN (21:02)
[2020-11-26] MEDS: ALBUTEROL 0.083% NEBU SOLN 3 ML VIAL NEB PRN (02:40)
[2020-11-26] MEDS: ALBUT/IPRATROP 3MG/0.5MG NEB 3 ML VIAL NEB SCH ×5 (07:13→22:45)
[2020-11-26 08:06] LABS: BUN Creatinine Ratio 28.1 (10-20); Calcium 10.1 mg/dl (8.5-10.1); Creatinine Clr Calc Pharmacy 97.4 ml/min; Est GFR (Non-African American) 77.7 ml/min; Magnesium 2.6 mg/dl (1.8-2.4); Potassium 4.3 mmol/L (3.5-5.1)
[2020-11-26] MEDS: INSULIN ASPART 100 UNITS/ML 3 ML PEN SC SCH ×4 (08:07→20:44)
[2020-11-26] MEDS: DICLOFENAC SOD 1% GEL 100 GM TUBE EXT SCH ×2 (08:08→20:43)
[2020-11-26] MEDS: FAMOTIDINE 20 MG in SYRINGE 3 ML IV SCH ×2 (08:08→20:44)
[2020-11-26] MEDS: LIDOCAINE 5% 1 PATCH TD SCH (08:09)
[2020-11-26] MEDS: PANTOprazole 40 MG TAB PO SCH ×2 (08:09→20:46)
[2020-11-26] MEDS: ENOXAPARIN INJ 60 MG/0.6 ML SYR SQ SCH ×3 (08:10→20:44)
[2020-11-26] MEDS: BENZONATATE 100 MG CAPSULE PO SCH ×3 (08:10→20:42)
[2020-11-26] MEDS: SENNA 8.6 MG TAB PO SCH (08:11)
[2020-11-26] MEDS: ASPIRIN 81 MG ECTAB PO SCH (08:11)
[2020-11-26] MEDS: CYANOCOBALAMIN 500 MCG TABLET (VITAMIN B-12) PO SCH (08:12)
[2020-11-26] MEDS: buPROPion SR 100 MG TABCR PO SCH ×2 (08:12→20:43)
[2020-11-26] MEDS: guaiFENesin 600 MG TABCR PO SCH ×2 (08:12→20:44)
[2020-11-26] MEDS: DEXTROMETHORPHAN POLYMR COMPLX 30 MG/5 ML UDP PO PRN (08:12)
[2020-11-26] MEDS: METOPROLOL TARTRATE 25 MG TAB PO SCH ×2 (08:13→20:45)
[2020-11-26] MEDS: dexAMETHasone 6 MG in SYRINGE 0 ML IV SCH (08:14)
[2020-11-26] MEDS: FLUTICASONE FUROATE 200MCG 14 PUFFS/INHALER INH SCH (08:14)
[2020-11-26] MEDS: MUPIROCIN 2% OINT 22 GM TUBE EXT SCH ×2 (08:15→20:46)
[2020-11-26] MEDS: POTASSIUM CHLORIDE CRTAB 20 MEQ TABCR PO SCH ×2 (08:17→20:46)
[2020-11-26] MEDS: INSULIN HUMAN NPH SC SCH (08:19)
[2020-11-26] MEDS: OXYMETAZOLINE 0.05% 30 ML BTL SCH (08:30)
[2020-11-26] MEDS: POLYETHYLENE (MIRALAX) 17 GM PACK PO SCH (10:08)
[2020-11-26] MEDS: guaiFENesin/CODEINE 100MG/10MG 5ML UDC PO PRN ×2 (12:52→20:47)
[2020-11-26] MEDS: 4 mg Once Daily x14 days PO SCH (18:55)
--- NOTE | 2020-11-26 19:21 | Hospitalist Progress Note ---
Date of Service November 26, 2020 Assessment & Plan (1) Pneumonia due to 2019 novel coronavirus: Plan: SEVERE COVID pneumonia. Remains critically ill. She is ~day 17 into her illness. She remains on high settings of HFNC alternating with BIPAP but FiO2 weaned overnight. She is proning at times when on HFNC. Day #9 of baricitinib. Day #9 of IV dexamethasone 6mg daily. Completed 5-day course of Remdesivir. Procal x 2 both negative during the stay; abx deferred. CRP initially high but improved with steroids/baricitinib. Continue aggressive pulmonary toilet. Nebs qid scheduled, tessalon 200mg TID, mucinex 600mg BID, guaitussin ac q6h prn. DVT proph - lovenox BID. She has had copious diuresis since admission - 10+ liters. Defer on lasix today. Prognosis remains guarded; she understands she is at high risk of intubation/mech ventilation. Fortunately it seems she is improving over last 24 hours. (2) Acute respiratory failure with hypoxia: Plan: 2nd to #1. BIPAP HS, HFNC during the day (if can tolerate). (3) Type 2 diabetes mellitus with insulin therapy: Plan: Glycemic recs appreciated from the pharmacy team. Cont NPH, lantus, and novolog. HbA1c <6.5% in September. Control adequate. (4) Hyponatremia: Plan: 2nd to diuresis. Na 134 today. BMP am. (5) Morbid obesity: Plan: BMI has improved s/p diuresis BMI high 30s (6) Asthma: Plan: with exacerbation - 2nd to COVID-19 infection. 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 had had significant bronchoconstriction on exam - improved with nebs. will increase frequency of nebs to q4h at her request. cont steroids, pulmonary toilet. see above. follows w/ Dr Sina Estrada. Dr Estrada was updated this week - he spoke with patient by phone, he gave encouragement. (7) Hypertension: Plan: cont metoprolol. hold aldactone. (8) GERD (gastroesophageal reflux disease): Plan: PPI twice daily. H2 susan. (9) Atrial flutter, paroxysmal: Plan: History of. No a.fib/flutter while here. (10) DVT prophylaxis: Plan: Cont lovenox 60mg BID (0.5mg/kg BID). High risk of VTE given severity of COVID illness, famHx of VTE, etc. (11) Constipation: Plan: senna + miralax (12) Leukocytosis: Plan: suspect leukocytosis is 2nd to effects from steroids repeat CBC in am Plan: updated pt's again this evening have updated him each night this week Admission and Anticipated Discharge Date Admission Date: November 18, 2020 Subjective BIPAP overnight BIPAP this am O2 requirements are less than 10/9 was able to go back on HFNC for 2 hours today to eat lunch patient asks if she can have her "rescue" inhaler available to her suggested we increase her nebs from q6 to q4 around--the-clock still with dry cough, dyspnea staff report with removal of BIPAP or HFNC she promptly drops to 70% o2 sats still no bowel movement tele overnight wnl Review of Systems Review of Systems: gen - fevers/chills resolved ENT - sore throat - ongoing Pulm - no sputum; mild central chest tightness with coughing GI - no abd pain; occasional nausea Physical Exam Physical Exam: Gen - BIPAP mask on, with moving in bed she becomes tachypneic mouth - lips dry heart - RRR, s1 s2, no murmur lungs - extensive rales but apices more clear today; wheezes improved; airation improved from prior exams abd - soft, NT, ND, BS+ ext - no edema, pulses 2+ b/l psych - a/o x 3; anxious skin - no rash Results & Data Results & Data ([facility]) Vital Signs (Past 12 Hours) Vital Signs Temp Pulse Pulse Resp BP Pulse Ox 11/26/20 18:25 22 92 11/26/20 18:23 22 92 11/26/20 15:00 37.0 C 91 H 25 H 133/88 90 11/26/20 14:28 84 28 H 90 11/26/20 12:01 78 24 90 11/26/20 11:10 79 24 90 11/26/20 11:09 78 25 H 90 11/26/20 11:00 36.7 C 87 25 H 111/72 91 11/26/20 08:00 36.7 C 80 79 23 104/73 89 L Laboratory Results Laboratory Results - last 24 hr 11/25/20 11/26/20 11/26/20 20:13 06:37 08:05 Sodium 134 L Potassium 4.3 Chloride 103 Carbon Dioxide 23 Anion Gap 8.0 BUN 24 H Creatinine 0.85 Est Cr Clr Drug Dosing 97.4 Est GFR ( Amer) 90.0 Est GFR (Non-Af Amer) 77.7 BUN/Creatinine Ratio 28.1 H Glucose 125 H POC Glucose 181 H 113 H Calcium 10.1 Magnesium 2.6 H 11/26/20 11/26/20 11/26/20 11:21 16:17 18:30 Sodium Potassium Chloride Carbon Dioxide Anion Gap BUN Creatinine Est Cr Clr Drug Dosing Est GFR ( Amer) Est GFR (Non-Af Amer) BUN/Creatinine Ratio Glucose POC Glucose 156 H 189 H 149 H Calcium Magnesium PG Care Time/CCT Total # of Minutes Spent Total Time Spent with Patient: Total time spent is greater than 50% in coordination of care (as documented) at patient's floor/unit and/or counseling patient: Coding Level of Care Code 40936 Subseq Hosp Care Lvl 3 Diagnoses Pneumonia due to 2019 novel coronavirus U07.1; J12.82 Acute respiratory failure with hypoxia J96.01 Type 2 diabetes mellitus with insulin therapy E11.9; Z79.4 Hyponatremia E87.1 Morbid obesity E66.01 Asthma J45.909 Hypertension I10 GERD (gastroesophageal reflux disease) K21.9 Atrial flutter, paroxysmal I48.92 DVT prophylaxis Z29.9 Constipation K59.00 Leukocytosis D72.829
[2020-11-26] MEDS: MONTELUKAST SODIUM 10 MG TABLET PO SCH (20:45)
[2020-11-26] MEDS: INSULIN GLARGINE SOLOSTAR 100 UNITS/ML 3 ML PEN SC SCH (20:45)
[2020-11-26] MEDS: MoRPHine SULFATE 2 MG/ML CARP IV PRN (20:48)
[2020-11-27] MEDS: MoRPHine SULFATE 2 MG/ML CARP IV PRN ×2 (03:10→21:28)
[2020-11-27] MEDS: guaiFENesin/CODEINE 100MG/10MG 5ML UDC PO PRN ×2 (03:10→09:35)
[2020-11-27] MEDS: ALBUT/IPRATROP 3MG/0.5MG NEB 3 ML VIAL NEB SCH ×7 (03:41→22:23)
--- NOTE | 2020-11-27 07:27 | Hospitalist Progress Note ---
Date of Service November 27, 2020 Assessment & Plan (1) Pneumonia due to 2019 novel coronavirus: Plan: SEVERE COVID pneumonia. around day 18 of illness improvement the past 36 hours, down to 55L and 70% FiO2, wean as tolerated Day #10 of baricitinib. Day #10 of IV dexamethasone 6mg daily, will extend a few more days Completed 5-day course of Remdesivir. Procal x 2 both negative during the stay; abx deferred. CRP initially high but improved with steroids/baricitinib. Continue aggressive pulmonary toilet. Nebs q3 WA, helping the most with cough tessalon 200mg TID, mucinex 600mg BID, guaitussin ac q6h prn. DVT proph - lovenox BID. She has had copious diuresis since admission - 10+ liters. continue Lasix PO today (2) Acute respiratory failure with hypoxia: Plan: 2nd to #1. BIPAP HS, HFNC during the day, making some strides in her FiO2 (3) Type 2 diabetes mellitus with insulin therapy: Plan: Glycemic recs appreciated from the pharmacy team. Cont NPH, lantus, and novolog. HbA1c <6.5% in September. Control adequate, monitor for hypoglycemia and hyperglycemia (4) Hyponatremia: Plan: Na stable today monitor periodically while on Lasix (5) Morbid obesity: Plan: BMI has improved s/p diuresis BMI high 30s (6) Asthma: Plan: with exacerbation - 2nd to COVID-19 infection. 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 no wheezing today will increase frequency of nebs to q3h at her request, helps a lot with her cough cont steroids, pulmonary toilet. see above. follows w/ Dr Sina Estrada. Dr Estrada was updated last week - he spoke with patient by phone, he gave encouragement. (7) Hypertension: Plan: cont metoprolol. hold aldactone. (8) GERD (gastroesophageal reflux disease): Plan: PPI twice daily. H2 susan. (9) Atrial flutter, paroxysmal: Plan: History of. No a.fib/flutter while here. (10) DVT prophylaxis: Plan: Cont lovenox 60mg BID (0.5mg/kg BID). High risk of VTE given severity of COVID illness, famHx of VTE, etc. (11) Constipation: Plan: senna + miralax (12) Leukocytosis: Plan: suspect leukocytosis is 2nd to effects from steroids Plan: wean oxygen as tolerated updated over the phone today Admission and Anticipated Discharge Date Admission Date: November 18, 2020 Subjective patient doing better today than she did the past 2 days d/w Dr. Whatley who had her last week, she was on BIPAP over the weekend today stable on 55L and 70%, able to eat a little more main complaint is her cough, she says Duoneb helps the most but not frequent enough changed frequency to q3 from q4 and she got more relief updated her over the phone, answered his questions Review of Systems Review of Systems: All systems reviewed & are unremarkable except as noted in Subjective Constitutional: + fatigue and + weakness; no fever Respiratory: + cough, + dyspnea and + dyspnea on exertion; no sputum production Cardiovascular: no chest pain and no edema Gastrointestinal: no abdominal pain, no nausea, no vomiting, no constipation and no diarrhea/loose stools Physical Exam Physical Exam: General: well developed, obese female, no distress, ill appearing Neck: supple, trachea midline, normal thyroid Lungs: + cough, no wheezing, no crackles, + tachypnea, belly breathing at rest Heart: regular S1 and S2, no murmur, peripheral pulses normal, capillary refill normal, no edema Abdomen: soft, NT, ND, + BS, no hepatomegaly, normal to percussion Extremities: normal in appearance, no cyanosis, no petechiae, strength is 5/5 bilaterally Neuro: awake, cooperative, moves all extremities, no focal motor deficits, CN II-XII intact, sensation in extremities intact, normal speech Skin: warm, dry, no rash, normal turgor Psych: Awake, alert oriented x 3, euthymic affect Results & Data Results & Data ([facility]) Vital Signs (Past 12 Hours) Vital Signs Temp Pulse Pulse Resp BP Pulse Ox 11/27/20 07:19 36.8 C 86 19 119/70 93 11/27/20 07:09 81 20 90 11/27/20 03:51 36.8 C 85 23 118/73 91 11/27/20 03:42 90 91 H 26 H 92 11/26/20 23:51 37.1 C 92 H 23 134/71 91 11/26/20 22:45 93 H 93 H 24 92 11/26/20 21:07 93 H 28 H 92 Laboratory Results Laboratory Results - last 24 hr 11/27/20 11/27/20 11/27/20 07:11 07:11 07:54 WBC 21.62 H RBC 4.82 Hgb 14.3 Hct 42.8 MCV 88.8 MCH 29.7 MCHC 33.4 RDW Std Deviation 47.5 H RDW Coeff of Shreidan 14.6 H Plt Count 510 H MPV 9.9 Immature Gran % (Auto) 6.0 Neut % (Auto) 73.6 Lymph % (Auto) 14.4 [place] % (Auto) 4.0 Eos % (Auto) 1.8 Baso % (Auto) 0.2 Neut # (Auto) 15.89 H Lymph # (Auto) 3.12 [place] # (Auto) 0.87 H Eos # (Auto) 0.39 Baso # (Auto) 0.05 Immature Gran # (Auto) 1.30 H Sodium 134 L Potassium 4.1 Chloride 103 Carbon Dioxide 23 Anion Gap 8.0 BUN 28 H Creatinine 1.04 Est Cr Clr Drug Dosing 79.5 Est GFR ( Amer) 70.5 Est GFR (Non-Af Amer) 60.9 BUN/Creatinine Ratio 26.7 H Glucose 108 H POC Glucose 109 H Calcium 9.8 11/27/20 11/27/20 11/27/20 11:28 17:04 21:07 WBC RBC Hgb Hct MCV MCH MCHC RDW Std Deviation RDW Coeff of Sheridan Plt Count MPV Immature Gran % (Auto) Neut % (Auto) Lymph % (Auto) [place] % (Auto) Eos % (Auto) Baso % (Auto) Neut # (Auto) Lymph # (Auto) [place] # (Auto) Eos # (Auto) Baso # (Auto) Immature Gran # (Auto) Sodium Potassium Chloride Carbon Dioxide Anion Gap BUN Creatinine Est Cr Clr Drug Dosing Est GFR ( Amer) Est GFR (Non-Af Amer) BUN/Creatinine Ratio Glucose POC Glucose 197 H 224 H 195 H Calcium Medications Administered Current Inpatient Medications Acetaminophen (Acetaminophen 325 Mg Tab) 650 mg PO Q4H PRN PRN Reason: Pain or Fever Stop: 12/18/20 16:10 Last Admin: 11/27/20 17:28 Dose: 650 mg Documented by: Albuterol (Albuterol 0.083% Nebu Soln 3 Ml Vial) 2.5 mg NEB Q2H PRN PRN Reason: SOB/wheeze Stop: 12/22/20 23:43 Albuterol (Albut/Ipratrop 3mg/0.5mg Neb 3 Ml Vial) 3 ml NEB Q3HWA [facility] Stop: 12/27/20 11:59 Last Admin: 11/27/20 19:17 Dose: 3 ml Documented by: Aspirin (Aspirin 81 Mg Ectab) 81 mg PO [facility] Stop: 12/19/20 08:59 Last Admin: 11/27/20 08:03 Dose: 81 mg Documented by: Baricitinib (4 Mg Once Daily X14 Days) 4 mg PO Q24H [facility]; Protocol Stop: 12/02/20 17:59 Last Admin: 11/27/20 17:50 Dose: 4 mg Documented by: Benzonatate (Benzonatate 100 Mg Capsule) 200 mg PO TID [facility] Stop: 12/21/20 11:09 Last Admin: 11/27/20 20:55 Dose: 200 mg Documented by: Bupropion HCl (Bupropion Sr 100 Mg Tabcr) 200 mg PO BID [facility] Stop: 12/18/20 20:59 Last Admin: 11/27/20 20:55 Dose: 200 mg Documented by: Nystatin 30 ml/ Dexamethasone 3.75 mg/ Diphenhydramine HCl 300 mg/ Sucrose 45 ml/Microcrystalline Cellulose 45 ml/ [employer]IER 1 ea 0 ml PO QID [facility] Stop: 12/21/20 12:59 Last Admin: 11/27/20 21:28 Dose: Not Given Documented by: Cyanocobalamin (Cyanocobalamin 500 Mcg Tablet (Vitamin B-12)) 2,[facility] Stop: 12/19/20 08:59 Last Admin: 11/27/20 08:02 Dose: 2,500 mcg Documented by: Dextromethorphan Polymer Complex (Dextromethorphan Polymr Complx 30 Mg/5 Ml Udp) 30 mg PO Q6H PRN PRN Reason: Cough Stop: 12/18/20 19:47 Last Admin: 11/27/20 08:06 Dose: 30 mg Documented by: Dextrose (Dextrose 50% 50 Ml Syringe) 25 - 50 ml IV UD PRN; Protocol PRN Reason: Hypoglycemia Protocol Stop: 12/19/20 07:29 Diclofenac Sodium (Diclofenac Sod 1% Gel 100 Gm Tube) 4 gm EXT Q12 [facility] Stop: 12/19/20 20:59 Last Admin: 11/27/20 20:56 Dose: 4 gm Documented by: Enoxaparin Sodium (Enoxaparin Inj 60 Mg/0.6 Ml Syr) 60 mg SQ BID [facility] Stop: 12/21/20 08:59 Last Admin: 11/27/20 20:56 Dose: 60 mg Documented by: Fluticasone Furoate (Fluticasone Furoate 200mcg 14 Puffs/Inhaler) 1 puffs INH DAILY [facility]; Protocol Stop: 12/21/20 11:59 Last Admin: 11/27/20 07:57 Dose: 1 puffs Documented by: Furosemide (Furosemide 40 Mg Tab) 40 mg PO QAM [facility] Stop: 12/22/20 08:59 Last Admin: 11/27/20 12:36 Dose: 40 mg Documented by: Glucagon (Glucagon For Inj 1 Mg Vial) 1 mg IM UD PRN; Protocol PRN Reason: Hypoglycemia Protocol Stop: 12/19/20 07:29 Glucose (Glucose 40% Gel 15 Gm Tube) 15 - 30 gm PO UD PRN; Protocol PRN Reason: Hypoglycemia Protocol Stop: 12/19/20 07:29 Glucose (Glucose 10 Tabs/Tube) 4 - 8 tabs PO UD PRN; Protocol PRN Reason: Hypoglycemia Protocol Stop: 12/19/20 07:29 Guaifenesin (Guaifenesin 600 Mg Tabcr) 600 mg PO Q12 [facility] Stop: 12/21/20 20:59 Last Admin: 11/27/20 20:57 Dose: 600 mg Documented by: Guaifenesin/Codeine Phosphate (Guaifenesin/Codeine 100mg/10mg 5ml Udc) 5 ml PO Q6H PRN PRN Reason: Cough Stop: 12/21/20 11:08 Last Admin: 11/27/20 09:35 Dose: 5 ml Documented by: Dexamethasone 6 mg/ Syringe 1.5 mls @ 1 mls/min IV QAM [facility]; Protocol Stop: 12/02/20 23:59 Last Admin: 11/27/20 07:54 Dose: 1 mls/min Documented by: Famotidine 20 mg/ Syringe 5 mls @ 2.5 mls/min IV BID [facility] Stop: 12/19/20 09:59 Last Admin: 11/27/20 20:57 Dose: 2.5 mls/min Documented by: Furosemide 40 mg/ Syringe 4 mls @ 4 mls/min IV QAM [facility] Stop: 12/20/20 08:59 Last Admin: 11/21/20 08:58 Dose: 4 mls/min Documented by: Lorazepam (Ativan) 0.25 mg in 0.5 mls @ 0.5 mls/min IV Q6H PRN PRN Reason: anxiety Stop: 12/25/20 15:09 Last Admin: 11/25/20 21:02 Dose: 0.5 mls/min Documented by: Insulin Aspart (Insulin Aspart 100 Units/Ml 3 Ml Pen) 0 units SC ACHS [facility]; Protocol Stop: 12/19/20 07:29 Last Admin: 11/27/20 21:10 Dose: 4 units Documented by: Insulin Glargine (Insulin Glargine Solostar 100 Units/Ml 3 Ml Pen) 8 units SC HS [facility] Stop: 12/23/20 20:59 Last Admin: 11/27/20 21:09 Dose: 8 units Documented by: Insulin Human NPH (Insulin Human Nph) 44 units SC DAILY [facility]; Protocol Stop: 12/26/20 08:59 Last Admin: 11/27/20 08:00 Dose: 44 units Documented by: Lidocaine (Lidocaine 5% 1 Patch) 1 patch TD QAM [facility] Stop: 12/19/20 09:59 Last Admin: 11/27/20 07:58 Dose: Not Given Documented by: Lorazepam (Lorazepam 0.5 Mg Tab) 0.5 mg PO Q6H PRN PRN Reason: Anxiety Stop: 12/18/20 19:50 Last Admin: 11/25/20 04:17 Dose: 0.5 mg Documented by: Menthol (Cough Drop (Sugar Free) Anahy 24 Anahy/1 Box) 1 anahy BUCCAL Q1H PRN PRN Reason: Sore Throat Stop: 12/23/20 16:29 Metoprolol Tartrate (Metoprolol Tartrate 25 Mg Tab) 75 mg PO BID [facility] Stop: 12/18/20 20:59 Last Admin: 11/27/20 20:58 Dose: 75 mg Documented by: Miscellaneous (Carbohydrates For Hypoglycemia ) 15 - 30 gm PO UD PRN PRN Reason: Hypoglycemia Treatment Stop: 12/19/20 07:29 Miscellaneous (Remove Lidoderm Patch) 1 ea N/A DAILY@2100 [facility] Stop: 12/19/20 20:59 Last Admin: 11/27/20 20:59 Dose: 1 ea Documented by: Miscellaneous Information (Pharmacy Glycemic Mgmt Consult) 1 ea N/A UD PRN PRN Reason: Consult Stop: 12/18/20 16:10 Montelukast Sodium (Montelukast Sodium 10 Mg Tablet) 10 mg PO QPM [facility] Stop: 12/18/20 20:59 Last Admin: 11/27/20 21:01 Dose: 10 mg Documented by: Morphine Sulfate (Morphine Sulfate 2 Mg/Ml Carp) 2 mg IV Q4H PRN PRN Reason: Pain Stop: 12/03/20 09:33 Last Admin: 11/27/20 21:28 Dose: 2 mg Documented by: Mupirocin (Mupirocin 2% Oint 22 Gm Tube) 1 appln EXT Q12 [facility] Stop: 12/19/20 20:59 Last Admin: 11/27/20 21:11 Dose: Not Given Documented by: Ondansetron HCl (Ondansetron Inj 2 Mg/Ml 2 Ml Vial) 4 mg IV Q6H PRN PRN Reason: Nausea Stop: 12/18/20 16:10 Last Admin: 11/21/20 02:12 Dose: 4 mg Documented by: Pantoprazole Sodium (Pantoprazole 40 Mg Tab) 40 mg PO BID [facility]; Protocol Stop: 12/18/20 20:59 Last Admin: 11/27/20 20:59 Dose: Not Given Documented by: Polyethylene Glycol (Polyethylene (Miralax) 17 Gm Pack) 17 gm PO DAILY PRN PRN Reason: Constipation Stop: 12/18/20 16:10 Polyethylene Glycol (Polyethylene (Miralax) 17 Gm Pack) 17 gm PO DAILY [facility] Stop: 12/24/20 14:59 Last Admin: 11/27/20 07:56 Dose: 17 gm Documented by: Potassium Chloride (Potassium Chloride Crtab 20 Meq Tabcr) 20 meq PO BID [facility] Stop: 12/19/20 20:59 Last Admin: 11/27/20 20:59 Dose: 20 meq Documented by: Sennosides (Senna 8.6 Mg Tab) 17.2 mg PO QAM [facility] Stop: 12/24/20 14:59 Last Admin: 11/27/20 08:08 Dose: 17.2 mg Documented by: Sodium Chloride (Sodium Chloride 0.65% Na Soln 45 Ml ([place])) 1 sprays NA Q1H PRN PRN Reason: dry nose Stop: 12/19/20 16:49 Sodium Chloride (Sodium Chloride 0.65% Na Soln 45 Ml ([place])) 2 sprays NA Q1H PRN PRN Reason: dryness of nose Stop: 12/23/20 16:40 Spironolactone (Spironolactone 25 Mg Tab) 50 mg PO BID [facility] Stop: 12/18/20 20:59 Last Admin: 11/21/20 08:59 Dose: 50 mg Documented by: PG Care Time/CCT Total # of Minutes Spent Total Time Spent with Patient: Total time spent is greater than 50% in coordination of care (as documented) at patient's floor/unit and/or counseling patient: Coding Level of Care Code 36687 Subseq Hosp Care Lvl 3 Diagnoses Pneumonia due to 2019 novel coronavirus U07.1; J12.82 Acute respiratory failure with hypoxia J96.01 Type 2 diabetes mellitus with insulin therapy E11.9; Z79.4 Hyponatremia E87.1 Morbid obesity E66.01 Asthma J45.909 Hypertension I10 GERD (gastroesophageal reflux disease) K21.9 Atrial flutter, paroxysmal I48.92 DVT prophylaxis Z29.9 Constipation K59.00 Leukocytosis D72.829
[2020-11-27] MEDS: PANTOprazole 40 MG TAB PO SCH ×2 (07:53→20:59)
[2020-11-27] MEDS: dexAMETHasone 6 MG in SYRINGE 0 ML IV SCH (07:54)
[2020-11-27] MEDS: POLYETHYLENE (MIRALAX) 17 GM PACK PO SCH (07:56)
[2020-11-27] MEDS: guaiFENesin 600 MG TABCR PO SCH ×2 (07:56→20:57)
[2020-11-27] MEDS: FLUTICASONE FUROATE 200MCG 14 PUFFS/INHALER INH SCH (07:57)
[2020-11-27] MEDS: LIDOCAINE 5% 1 PATCH TD SCH (07:58)
[2020-11-27] MEDS: BENZONATATE 100 MG CAPSULE PO SCH ×3 (07:58→20:55)
[2020-11-27] MEDS: INSULIN HUMAN NPH SC SCH (08:00)
[2020-11-27] MEDS: METOPROLOL TARTRATE 25 MG TAB PO SCH ×2 (08:02→20:58)
[2020-11-27] MEDS: CYANOCOBALAMIN 500 MCG TABLET (VITAMIN B-12) PO SCH (08:02)
[2020-11-27] MEDS: buPROPion SR 100 MG TABCR PO SCH ×2 (08:03→20:55)
[2020-11-27] MEDS: ASPIRIN 81 MG ECTAB PO SCH (08:03)
[2020-11-27] MEDS: POTASSIUM CHLORIDE CRTAB 20 MEQ TABCR PO SCH ×2 (08:04→20:59)
[2020-11-27] MEDS: DICLOFENAC SOD 1% GEL 100 GM TUBE EXT SCH ×2 (08:04→20:56)
[2020-11-27] MEDS: DEXTROMETHORPHAN POLYMR COMPLX 30 MG/5 ML UDP PO PRN (08:06)
[2020-11-27 08:07] LABS: Hematocrit (blood only) 42.8 % (37-47); Hemoglobin 14.3 g/dL (12.0-16.0); Mean Corpuscular Hemoglobin 29.7 pg (25-34); Mean Corpuscular Hgb Conc 33.4 g/dL (32-36); Mean Corpuscular Volume 88.8 fL (80-100); Mean Platelet Volume 9.9 fL (7.4-10.4); Platelet Count 510 K/uL (130-400); RDW Coefficient of Variation 14.6 % (11.5-14.5); RDW Standard Deviation 47.5 fL (36.4-46.3); Red Blood Count 4.82 M/uL (4.2-5.4); White Blood Count 21.62 K/uL (4.8-10.8)
[2020-11-27] MEDS: SENNA 8.6 MG TAB PO SCH (08:08)
[2020-11-27] MEDS: MUPIROCIN 2% OINT 22 GM TUBE EXT SCH ×2 (08:15→21:11)
[2020-11-27 08:28] LABS: BUN Creatinine Ratio 26.7 (10-20); Calcium 9.8 mg/dl (8.5-10.1); Creatinine Clr Calc Pharmacy 79.5 ml/min; Est GFR (African American) 70.5 ml/min; Est GFR (Non-African American) 60.9 ml/min; Potassium 4.1 mmol/L (3.5-5.1)
[2020-11-27] MEDS: FAMOTIDINE 20 MG in SYRINGE 3 ML IV SCH ×2 (08:30→20:57)
[2020-11-27 08:33] LABS: Basophils # (auto) 0.05 K/uL (0-0.2); Basophils % (auto) 0.2 %; Eosinophils # (auto) 0.39 K/uL (0-0.5); Eosinophils % (auto) 1.8 %; Lymphocytes # (auto) 3.12 K/uL (1.2-3.4); Lymphocytes % (auto) 14.4 %; Monocytes # (auto) 0.87 K/uL (0.11-0.59); Neutrophils # (auto) 15.89 K/uL (1.4-6.5); Neutrophils % (auto) 73.6 %
[2020-11-27] MEDS: INSULIN ASPART 100 UNITS/ML 3 ML PEN SC SCH ×4 (09:36→21:10)
--- NOTE | 2020-11-27 12:06 | Pharmacy Report ---
Pharmacy Glycemic Short Note 2 - Date of Service November 27, 2020 - Glycemic Short BSG Results (Last 24 hours): 11/26/20 11/26/20 11/26/20 16:17 18:30 20:10 Glucose POC Glucose 189 H 149 H 190 H 11/27/20 11/27/20 11/27/20 07:11 07:54 11:28 Glucose 108 H POC Glucose 109 H 197 H OUTPATIENT ANTIDIABETIC REGIMEN: * Basaglar 60 units HS * Ozempic 0.5mg SQ monthly * Metformin ER 1000mg PO BID ASSESSMENT: 11/27 * Dexamethasone day 9 - clarifying duration of therapy (currently 30 days) * AM fasting BSG stable and wnl - no changes to NPH/Lantus * PO intake increased with breakfast today, and lunch BSG with associated increase. Will tighten CHO ratio. 11/25 * Pt has received 50 units of insulin over the past 24hrs * 8 units of basal with Lantus * 40 units of NPH for steroid induced hyperglycemia * 2 units of bolus with NovoLog * BSGs all <180mg/dl. Well controlled. * PO intake remains low. * No changes needed today. 11/23: * Bsgs well controlled again over the last 24 hours. * 61 total units of insulin administered, 55 of basal (40 NPH, 15 units lantus) * Fasting BSG 75-83 mg/dL again today, will reduce lantus further today. * Post prandials well controlled, will continue with current NovoLog score PLAN FOR INPATIENT GLYCEMIC CONTROL: * Hold outpatient Metformin and Ozempic diabetes medications * Basal insulin * Lantus to 8 units SQ HS * NPH 44 units SQ daily with IV Dexamethasone * Bolus insulin * NovoLog per scale ACHS or Q6hrs while NPO * Goal Range: Low 110 mg/dL - High 140 mg/dL * Correction Factor: 18 mg/dL/unit * Nutritional / Prandial insulin per carb ratio of 1 unit per 5 grams CHO consumed PLAN FOR DISCHARGE: * A1c 6.3% at goal, continue home regimen
[2020-11-27] MEDS: FUROSEMIDE 40 MG TAB PO SCH (12:36)
[2020-11-27] MEDS: ACETAMINOPHEN 325 MG TAB PO PRN (17:28)
[2020-11-27] MEDS: 4 mg Once Daily x14 days PO SCH (17:50)
[2020-11-27] MEDS: ENOXAPARIN INJ 60 MG/0.6 ML SYR SQ SCH (20:56)
[2020-11-27] MEDS: MONTELUKAST SODIUM 10 MG TABLET PO SCH (21:01)
[2020-11-27] MEDS: INSULIN GLARGINE SOLOSTAR 100 UNITS/ML 3 ML PEN SC SCH (21:09)
[2020-11-28] MEDS: guaiFENesin/CODEINE 100MG/10MG 5ML UDC PO PRN ×2 (03:34→17:07)
[2020-11-28] MEDS: ALBUT/IPRATROP 3MG/0.5MG NEB 3 ML VIAL NEB SCH ×6 (07:09→21:56)
[2020-11-28] MEDS ORDERED: INSULIN ASPART 100 UNITS/ML 3 ML PEN SC SCH ×2 (07:30→11:30)
[2020-11-28] MEDS: FAMOTIDINE 20 MG in SYRINGE 3 ML IV SCH ×2 (09:09→20:22)
[2020-11-28] MEDS: dexAMETHasone 6 MG in SYRINGE 0 ML IV SCH (09:09)
[2020-11-28] MEDS: METOPROLOL TARTRATE 25 MG TAB PO SCH ×2 (09:09→20:26)
[2020-11-28] MEDS: LIDOCAINE 5% 1 PATCH TD SCH (09:10)
[2020-11-28] MEDS: PANTOprazole 40 MG TAB PO SCH ×2 (09:10→20:27)
[2020-11-28] MEDS: buPROPion SR 100 MG TABCR PO SCH ×2 (09:11→20:25)
[2020-11-28] MEDS: DEXTROMETHORPHAN POLYMR COMPLX 30 MG/5 ML UDP PO PRN (09:11)
[2020-11-28] MEDS: ASPIRIN 81 MG ECTAB PO SCH (09:12)
[2020-11-28] MEDS: SENNA 8.6 MG TAB PO SCH (09:12)
[2020-11-28] MEDS: CYANOCOBALAMIN 500 MCG TABLET (VITAMIN B-12) PO SCH (09:12)
[2020-11-28] MEDS: POTASSIUM CHLORIDE CRTAB 20 MEQ TABCR PO SCH ×2 (09:13→20:22)
[2020-11-28] MEDS: FUROSEMIDE 40 MG TAB PO SCH (09:13)
[2020-11-28] MEDS: MUPIROCIN 2% OINT 22 GM TUBE EXT SCH ×2 (09:14→20:27)
[2020-11-28] MEDS: guaiFENesin 600 MG TABCR PO SCH ×2 (09:14→20:25)
[2020-11-28] MEDS: ENOXAPARIN INJ 60 MG/0.6 ML SYR SQ SCH ×2 (09:14→20:24)
[2020-11-28] MEDS: BENZONATATE 100 MG CAPSULE PO SCH ×3 (09:15→20:22)
[2020-11-28] MEDS: POLYETHYLENE (MIRALAX) 17 GM PACK PO SCH (09:15)
[2020-11-28] MEDS: DICLOFENAC SOD 1% GEL 100 GM TUBE EXT SCH ×2 (09:15→20:23)
[2020-11-28] MEDS: INSULIN HUMAN NPH SC SCH (09:18)
--- NOTE | 2020-11-28 09:18 | Hospitalist Progress Note ---
Date of Service November 28, 2020 Assessment & Plan (1) Pneumonia due to 2019 novel coronavirus: Plan: SEVERE COVID pneumonia. almost 3 weeks into illness improvement the past 2 days, down to 40L and 70% FiO2, wean as tolerated Day #11 of baricitinib. Day #11 of IV dexamethasone 6mg daily, will extend a few more days Completed 5-day course of Remdesivir. Procal x 2 both negative during the stay; abx deferred. CRP initially high but improved with steroids/baricitinib. Continue aggressive pulmonary toilet. Nebs q3 WA, helping the most with cough tessalon 200mg TID, mucinex 600mg BID, guaitussin ac q6h prn. DVT proph - lovenox BID. She has had copious diuresis since admission - 10+ liters. continue Lasix PO today check BMP tomorrow (2) Acute respiratory failure with hypoxia: Plan: 2nd to #1. BIPAP HS, HFNC during the day, making improvements, down to 40L and 70% FiO2 (3) Type 2 diabetes mellitus with insulin therapy: Plan: Glycemic recs appreciated from the pharmacy team. Cont NPH, lantus, and novolog. HbA1c <6.5% in September. Control adequate, monitor for hypoglycemia and hyperglycemia, no episodes the past 24 hours (4) Hyponatremia: Plan: check BMP tomorrow (5) Morbid obesity: Plan: BMI has improved s/p diuresis BMI high 30s (6) Asthma: Plan: with exacerbation - 2nd to COVID-19 infection. 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 no wheezing today cough has improved with increasing frequency of nebs to q3h at her request cont steroids, pulmonary toilet. see above. follows w/ Dr Sina Estrada. Dr Estrada was updated last week - he spoke with patient by phone, he gave encouragement. (7) Hypertension: Plan: cont metoprolol. hold aldactone. (8) GERD (gastroesophageal reflux disease): Plan: PPI twice daily. H2 susan. (9) Atrial flutter, paroxysmal: Plan: History of. No a.fib/flutter while here. (10) DVT prophylaxis: Plan: Cont lovenox 60mg BID (0.5mg/kg BID). High risk of VTE given severity of COVID illness, famHx of VTE, etc. (11) Constipation: Plan: senna + miralax (12) Leukocytosis: Plan: suspect leukocytosis is 2nd to effects from steroids Plan: wean oxygen as tolerated updated over the phone daily, providing support and encouragement, he is very concerned about his Admission and Anticipated Discharge Date Admission Date: November 18, 2020 Subjective patient slept okay with BIPAP this morning she is down to 40L from 55L and still on 70% her cough is still the most troublesome symptom, really harsh at times eating everything on her tray, great appetite no fever/chills she is happy that an aide found the izaguirre her sent her, she is more positive today Review of Systems Review of Systems: All systems reviewed & are unremarkable except as noted in Subjective Constitutional: + fatigue and + weakness Respiratory: + cough, + dyspnea and + dyspnea on exertion; no chest congestion, no pain with cough and no sputum production Physical Exam Physical Exam: General: well developed, obese female, no distress, ill appearing Neck: supple, trachea midline, normal thyroid Lungs: + cough, no wheezing, no crackles, + tachypnea, belly breathing at rest Heart: regular S1 and S2, no murmur, peripheral pulses normal, capillary refill normal, no edema Abdomen: soft, NT, ND, + BS, no hepatomegaly, normal to percussion Extremities: normal in appearance, no cyanosis, no petechiae, strength is 5/5 bilaterally Neuro: awake, cooperative, moves all extremities, no focal motor deficits, CN II-XII intact, sensation in extremities intact, normal speech Skin: warm, dry, no rash, normal turgor Psych: Awake, alert oriented x 3, euthymic affect Results & Data Results & Data ([facility]) Vital Signs (Past 12 Hours) Vital Signs Temp Pulse Pulse Resp BP Pulse Ox 11/28/20 09:07 36.9 C 102 H 24 129/63 91 11/28/20 07:09 81 81 26 H 94 11/28/20 03:36 36.5 C 81 20 116/78 93 11/28/20 03:17 79 24 93 11/28/20 00:02 36.3 C L 84 22 119/78 94 11/27/20 22:30 93 H 26 H 93 11/27/20 22:24 97 H 26 H 93 Laboratory Results Laboratory Results - last 24 hr 11/27/20 11/27/20 11/27/20 11:28 17:04 21:07 POC Glucose 197 H 224 H 195 H 11/28/20 08:13 POC Glucose 105 H Medications Administered Current Inpatient Medications Acetaminophen (Acetaminophen 325 Mg Tab) 650 mg PO Q4H PRN PRN Reason: Pain or Fever Stop: 12/18/20 16:10 Last Admin: 11/27/20 17:28 Dose: 650 mg Documented by: Albuterol (Albuterol 0.083% Nebu Soln 3 Ml Vial) 2.5 mg NEB Q2H PRN PRN Reason: SOB/wheeze Stop: 12/22/20 23:43 Albuterol (Albut/Ipratrop 3mg/0.5mg Neb 3 Ml Vial) 3 ml NEB Q3HWA [facility] Stop: 12/27/20 11:59 Last Admin: 11/28/20 07:09 Dose: 3 ml Documented by: Aspirin (Aspirin 81 Mg Ectab) [facility] [place]: 12/19/20 08:59 Last Admin: 11/27/20 08:03 Dose: 81 mg Documented by: Baricitinib (4 Mg Once Daily X14 Days) 4 mg PO Q24H [facility]; Protocol Stop: 12/02/20 17:59 Last Admin: 11/27/20 17:50 Dose: 4 mg Documented by: Benzonatate (Benzonatate 100 Mg Capsule) 200 mg PO TID [facility] Stop: 12/21/20 11:09 Last Admin: 11/27/20 20:55 Dose: 200 mg Documented by: Bupropion HCl (Bupropion Sr 100 Mg Tabcr) 200 mg PO BID [facility] Stop: 12/18/20 20:59 Last Admin: 11/27/20 20:55 Dose: 200 mg Documented by: Nystatin 30 ml/ Dexamethasone 3.75 mg/ Diphenhydramine HCl 300 mg/ Sucrose 45 ml/Microcrystalline Cellulose 45 ml/ [employer]IER 1 ea 0 ml PO QID [facility] Stop: 12/21/20 12:59 Last Admin: 11/27/20 21:28 Dose: Not Given Documented by: Cyanocobalamin (Cyanocobalamin 500 Mcg Tablet (Vitamin B-12)) 2,500 mcg PO QAM [facility] Stop: 12/19/20 08:59 Last Admin: 11/27/20 08:02 Dose: 2,500 mcg Documented by: Dextromethorphan Polymer Complex (Dextromethorphan Polymr Complx 30 Mg/5 Ml Udp) 30 mg PO Q6H PRN PRN Reason: Cough Stop: 12/18/20 19:47 Last Admin: 11/27/20 08:06 Dose: 30 mg Documented by: Dextrose (Dextrose 50% 50 Ml Syringe) 25 - 50 ml IV UD PRN; Protocol PRN Reason: Hypoglycemia Protocol Stop: 12/19/20 07:29 Diclofenac Sodium (Diclofenac Sod 1% Gel 100 Gm Tube) 4 gm EXT Q12 [facility] Stop: 12/19/20 20:59 Last Admin: 11/27/20 20:56 Dose: 4 gm Documented by: Enoxaparin Sodium (Enoxaparin Inj 60 Mg/0.6 Ml Syr) 60 mg SQ BID [facility] Stop: 12/21/20 08:59 Last Admin: 11/27/20 20:56 Dose: 60 mg Documented by: Fluticasone Furoate (Fluticasone Furoate 200mcg 14 Puffs/Inhaler) 1 puffs INH DAILY [facility]; Protocol Stop: 12/21/20 11:59 Last Admin: 11/27/20 07:57 Dose: 1 puffs Documented by: Furosemide (Furosemide 40 Mg Tab) 40 mg PO QAM [facility] Stop: 12/22/20 08:59 Last Admin: 11/27/20 12:36 Dose: 40 mg Documented by: Glucagon (Glucagon For Inj 1 Mg Vial) 1 mg IM UD PRN; Protocol PRN Reason: Hypoglycemia Protocol Stop: 12/19/20 07:29 Glucose (Glucose 40% Gel 15 Gm Tube) 15 - 30 gm PO UD PRN; Protocol PRN Reason: Hypoglycemia Protocol Stop: 12/19/20 07:29 Glucose (Glucose 10 Tabs/Tube) 4 - 8 tabs PO UD PRN; Protocol PRN Reason: Hypoglycemia Protocol Stop: 12/19/20 07:29 Guaifenesin (Guaifenesin 600 Mg Tabcr) 600 mg PO Q12 [facility] Stop: 12/21/20 20:59 Last Admin: 11/27/20 20:57 Dose: 600 mg Documented by: Guaifenesin/Codeine Phosphate (Guaifenesin/Codeine 100mg/10mg 5ml Udc) 5 ml PO Q6H PRN PRN Reason: Cough Stop: 12/21/20 11:08 Last Admin: 11/28/20 03:34 Dose: 5 ml Documented by: Dexamethasone 6 mg/ Syringe 1.5 mls @ 1 mls/min IV QAM [facility]; Protocol Stop: 12/02/20 23:59 Last Admin: 11/27/20 07:54 Dose: 1 mls/min Documented by: Famotidine 20 mg/ Syringe 5 mls @ 2.5 mls/min IV BID [facility] Stop: 12/19/20 09:59 Last Admin: 11/27/20 20:57 Dose: 2.5 mls/min Documented by: Furosemide 40 mg/ Syringe 4 mls @ 4 mls/min IV QAM [facility] Stop: 12/20/20 08:59 Last Admin: 11/21/20 08:58 Dose: 4 mls/min Documented by: Lorazepam (Ativan) 0.25 mg in 0.5 mls @ 0.5 mls/min IV Q6H PRN PRN Reason: anxiety Stop: 12/25/20 15:09 Last Admin: 11/25/20 21:02 Dose: 0.5 mls/min Documented by: Insulin Aspart (Insulin Aspart 100 Units/Ml 3 Ml Pen) 0 units SC DAILY@0730 [facility]; Protocol Stop: 12/28/20 07:29 Insulin Aspart (Insulin Aspart 100 Units/Ml 3 Ml Pen) 0 units SC [facility]; Protocol Stop: 12/28/20 11:29 Insulin Glargine (Insulin Glargine Solostar 100 Units/Ml 3 Ml Pen) 8 units SC [facility] Stop: 12/23/20 20:59 Last Admin: 11/27/20 21:09 Dose: 8 units Documented by: Insulin Human NPH (Insulin Human Nph) 44 units SC DAILY [facility]; Protocol Stop: 12/26/20 08:59 Last Admin: 11/27/20 08:00 Dose: 44 units Documented by: Lidocaine (Lidocaine 5% 1 Patch) 1 patch TD QAM [facility] Stop: 12/19/20 09:59 Last Admin: 11/27/20 07:58 Dose: Not Given Documented by: Lorazepam (Lorazepam 0.5 Mg Tab) 0.5 mg PO Q6H PRN PRN Reason: Anxiety Stop: 12/18/20 19:50 Last Admin: 11/25/20 04:17 Dose: 0.5 mg Documented by: Menthol (Cough Drop (Sugar Free) Anahy 24 Anahy/1 Box) 1 anahy BUCCAL Q1H PRN PRN Reason: Sore Throat Stop: 12/23/20 16:29 Metoprolol Tartrate (Metoprolol Tartrate 25 Mg Tab) 75 mg PO BID [facility] Stop: 12/18/20 20:59 Last Admin: 11/27/20 20:58 Dose: 75 mg Documented by: Miscellaneous (Carbohydrates For Hypoglycemia ) 15 - 30 gm PO UD PRN PRN Reason: Hypoglycemia Treatment Stop: 12/19/20 07:29 Miscellaneous (Remove Lidoderm Patch) 1 ea N/A DAILY@2100 [facility] Stop: 12/19/20 20:59 Last Admin: 11/27/20 20:59 Dose: 1 ea Documented by: Miscellaneous Information (Pharmacy Glycemic Mgmt Consult) 1 ea N/A UD PRN PRN Reason: Consult Stop: 12/18/20 16:10 Montelukast Sodium (Montelukast Sodium 10 Mg Tablet) 10 mg PO QPM [facility] Stop: 12/18/20 20:59 Last Admin: 11/27/20 21:01 Dose: 10 mg Documented by: Morphine Sulfate (Morphine Sulfate 2 Mg/Ml Carp) 2 mg IV Q4H PRN PRN Reason: Pain Stop: 12/03/20 09:33 Last Admin: 11/27/20 21:28 Dose: 2 mg Documented by: Mupirocin (Mupirocin 2% Oint 22 Gm Tube) 1 appln EXT Q12 [facility] Stop: 12/19/20 20:59 Last Admin: 11/27/20 21:11 Dose: Not Given Documented by: Ondansetron HCl (Ondansetron Inj 2 Mg/Ml 2 Ml Vial) 4 mg IV Q6H PRN PRN Reason: Nausea Stop: 12/18/20 16:10 Last Admin: 11/21/20 02:12 Dose: 4 mg Documented by: Pantoprazole Sodium (Pantoprazole 40 Mg Tab) 40 mg PO BID [facility]; Protocol Stop: 12/18/20 20:59 Last Admin: 11/27/20 20:59 Dose: Not Given Documented by: Polyethylene Glycol (Polyethylene (Miralax) 17 Gm Pack) 17 gm PO DAILY PRN PRN Reason: Constipation Stop: 12/18/20 16:10 Polyethylene Glycol (Polyethylene (Miralax) 17 Gm Pack) 17 gm PO DAILY [facility] Stop: 12/24/20 14:59 Last Admin: 11/27/20 07:56 Dose: 17 gm Documented by: Potassium Chloride (Potassium Chloride Crtab 20 Meq Tabcr) 20 meq PO BID [facility] Stop: 12/19/20 20:59 Last Admin: 11/27/20 20:59 Dose: 20 meq Documented by: Sennosides (Senna 8.6 Mg Tab) 17.2 mg PO QAM [facility] Stop: 12/24/20 14:59 Last Admin: 11/27/20 08:08 Dose: 17.2 mg Documented by: Sodium Chloride (Sodium Chloride 0.65% Na Soln 45 Ml ([place])) 1 sprays NA Q1H PRN PRN Reason: dry nose Stop: 12/19/20 16:49 Sodium Chloride (Sodium Chloride 0.65% Na Soln 45 Ml ([place])) 2 sprays NA Q1H PRN PRN Reason: dryness of nose Stop: 12/23/20 16:40 Spironolactone (Spironolactone 25 Mg Tab) 50 mg PO BID [facility] Stop: 12/18/20 20:59 Last Admin: 11/21/20 08:59 Dose: 50 mg Documented by: PG Care Time/CCT Total # of Minutes Spent Total Time Spent with Patient: Total time spent is greater than 50% in coordination of care (as documented) at patient's floor/unit and/or counseling patient: Coding Level of Care Code 24704 Subseq Hosp Care Lvl 3 Diagnoses Pneumonia due to 2019 novel coronavirus U07.1; J12.82 Acute respiratory failure with hypoxia J96.01 Type 2 diabetes mellitus with insulin therapy E11.9; Z79.4 Hyponatremia E87.1 Morbid obesity E66.01 Asthma J45.909 Hypertension I10 GERD (gastroesophageal reflux disease) K21.9 Atrial flutter, paroxysmal I48.92 DVT prophylaxis Z29.9 Constipation K59.00 Leukocytosis D72.829
[2020-11-28] MEDS: FLUTICASONE FUROATE 200MCG 14 PUFFS/INHALER INH SCH (09:22)
--- NOTE | 2020-11-28 10:50 | Pharmacy Report ---
Pharmacy Glycemic Short Note 2 - Date of Service November 28, 2020 - Glycemic Short BSG Results (Last 24 hours): 11/27/20 11/27/20 11/27/20 11:28 17:04 21:07 POC Glucose 197 H 224 H 195 H 11/28/20 08:13 POC Glucose 105 H OUTPATIENT ANTIDIABETIC REGIMEN: * Basaglar 60 units HS * Ozempic 0.5mg SQ monthly * Metformin ER 1000mg PO BID * HbA1c 6.3% on 09/27/20 ASSESSMENT: 11/28 * Stressors stable * AM fasting BSG in range - no change to basal insulin * PO intake increased yesterday and was associated with increased post-prandial BSG's despite tightening of CHO ratio at lunch. Will tighten further and also tighten correction factor 11/27 * Dexamethasone day 9 - clarifying duration of therapy (currently 30 days) * AM fasting BSG stable and wnl - no changes to NPH/Lantus * PO intake increased with breakfast today, and lunch BSG with associated increase. Will tighten CHO ratio. 11/25 * Pt has received 50 units of insulin over the past 24hrs * 8 units of basal with Lantus * 40 units of NPH for steroid induced hyperglycemia * 2 units of bolus with NovoLog * BSGs all <180mg/dl. Well controlled. * PO intake remains low. * No changes needed today. 11/23: * Bsgs well controlled again over the last 24 hours. * 61 total units of insulin administered, 55 of basal (40 NPH, 15 units lantus) * Fasting BSG 75-83 mg/dL again today, will reduce lantus further today. * Post prandials well controlled, will continue with current NovoLog score PLAN FOR INPATIENT GLYCEMIC CONTROL: * Hold outpatient Metformin and Ozempic diabetes medications * Basal insulin * Lantus to 8 units SQ HS * NPH 44 units SQ daily with IV Dexamethasone * Bolus insulin * NovoLog per scale ACHS or Q6hrs while NPO * Goal Range: Low 110 mg/dL - High 140 mg/dL * Correction Factor: 15 mg/dL/unit * Nutritional / Prandial insulin per carb ratio of 1 unit per 4 grams CHO consumed PLAN FOR DISCHARGE: * A1c 6.3% at goal. Continue home regimen assuming frequent hypoglycemia as an outpatient is not occurring and assuming no contraindications exist at discharge
[2020-11-28] MEDS: INSULIN ASPART 100 UNITS/ML 3 ML PEN SC SCH ×3 (12:56→20:29)
[2020-11-28] MEDS: 4 mg Once Daily x14 days PO SCH (18:08)
[2020-11-28] MEDS: MONTELUKAST SODIUM 10 MG TABLET PO SCH (20:26)
[2020-11-28] MEDS: INSULIN GLARGINE SOLOSTAR 100 UNITS/ML 3 ML PEN SC SCH (20:28)
[2020-11-29] MEDS: ALBUT/IPRATROP 3MG/0.5MG NEB 3 ML VIAL NEB SCH ×7 (01:08→21:47)
[2020-11-29] MEDS: LORazepam 0.25 MG/0.5 ML VIAL IV PRN (01:37)
[2020-11-29 06:33] LABS: Hematocrit (blood only) 43.5 % (37-47); Hemoglobin 14.5 g/dL (12.0-16.0); Mean Corpuscular Hemoglobin 29.9 pg (25-34); Mean Corpuscular Hgb Conc 33.3 g/dL (32-36); Mean Corpuscular Volume 89.7 fL (80-100); Platelet Count 412 K/uL (130-400); RDW Coefficient of Variation 14.4 % (11.5-14.5); RDW Standard Deviation 46.8 fL (36.4-46.3); Red Blood Count 4.85 M/uL (4.2-5.4); White Blood Count 24.15 K/uL (4.8-10.8)
[2020-11-29 07:06] LABS: BUN Creatinine Ratio 26.4 (10-20); Calcium 9.6 mg/dl (8.5-10.1); Creatinine Clr Calc Pharmacy 109.7 ml/min; Est GFR (African American) 104.7 ml/min; Est GFR (Non-African American) 90.4 ml/min
[2020-11-29 07:07] LABS: C Reactive Protein 1.65 mg/dl (0-0.29)
[2020-11-29] MEDS: INSULIN ASPART 100 UNITS/ML 3 ML PEN SC SCH ×4 (09:34→21:06)
[2020-11-29] MEDS: FAMOTIDINE 20 MG in SYRINGE 3 ML IV SCH ×2 (09:34→21:31)
[2020-11-29] MEDS: dexAMETHasone 6 MG in SYRINGE 0 ML IV SCH (09:35)
[2020-11-29] MEDS: LIDOCAINE 5% 1 PATCH TD SCH (09:35)
[2020-11-29] MEDS: METOPROLOL TARTRATE 25 MG TAB PO SCH ×2 (09:35→21:29)
[2020-11-29] MEDS: guaiFENesin 600 MG TABCR PO SCH ×2 (09:35→21:30)
[2020-11-29] MEDS: POTASSIUM CHLORIDE CRTAB 20 MEQ TABCR PO SCH ×2 (09:35→21:30)
[2020-11-29] MEDS: FUROSEMIDE 40 MG TAB PO SCH (09:36)
[2020-11-29] MEDS: BENZONATATE 100 MG CAPSULE PO SCH ×3 (09:36→21:29)
[2020-11-29] MEDS: PANTOprazole 40 MG TAB PO SCH (09:36)
[2020-11-29] MEDS: ASPIRIN 81 MG ECTAB PO SCH (09:36)
[2020-11-29] MEDS: SENNA 8.6 MG TAB PO SCH (09:36)
[2020-11-29] MEDS: DEXTROMETHORPHAN POLYMR COMPLX 30 MG/5 ML UDP PO PRN ×2 (09:36→17:50)
[2020-11-29] MEDS: CYANOCOBALAMIN 500 MCG TABLET (VITAMIN B-12) PO SCH (09:37)
[2020-11-29] MEDS: buPROPion SR 100 MG TABCR PO SCH ×2 (09:37→21:29)
[2020-11-29] MEDS: FLUTICASONE FUROATE 200MCG 14 PUFFS/INHALER INH SCH (09:37)
[2020-11-29] MEDS: DICLOFENAC SOD 1% GEL 100 GM TUBE EXT SCH ×2 (09:38→21:31)
[2020-11-29] MEDS: MUPIROCIN 2% OINT 22 GM TUBE EXT SCH ×2 (09:38→21:45)
[2020-11-29] MEDS: ENOXAPARIN INJ 60 MG/0.6 ML SYR SQ SCH ×2 (09:38→21:31)
[2020-11-29] MEDS: POLYETHYLENE (MIRALAX) 17 GM PACK PO SCH ×4 (09:39→17:51)
[2020-11-29] MEDS: INSULIN HUMAN NPH SC SCH (09:39)
[2020-11-29] MEDS: ACETAMINOPHEN 325 MG TAB PO PRN ×2 (09:53→21:30)
[2020-11-29] MEDS: ONDANSETRON INJ 2 MG/ML 2 ML VIAL IV PRN (10:56)
--- NOTE | 2020-11-29 11:43 | Hospitalist Progress Note ---
Date of Service November 29, 2020 Assessment & Plan (1) Pneumonia due to 2019 novel coronavirus: Plan: SEVERE COVID pneumonia. almost 3 weeks into illness improvement the past 3 days, 40L and 60% this morning, had to bump her up to 70% after she vomited Day #12 of baricitinib. Day #12 of IV dexamethasone 6mg daily, will extend a few more days Completed 5-day course of Remdesivir. Procal x 2 both negative during the stay; abx deferred. CRP initially high but improved with steroids/baricitinib. Continue aggressive pulmonary toilet. Nebs q3 WA, helping the most with cough tessalon 200mg TID, mucinex 600mg BID, guaitussin ac q6h prn. DVT proph - lovenox BID. She has had copious diuresis since admission - 10+ liters. continue Lasix PO today Cr and K are stable today (2) Vomiting: Plan: started 11/29, dark bilious vomit abdomen is distended, hypoactive bowel sounds, no BM for a week check KUB, CXR, Zofran and Phenergan PRN change to clear liquid diet, change some PO medications to IV depending on KUB, will try suppository, Miralax for bowels to start moving (3) Constipation: Plan: senna + miralax no BM now for 7 days check KUB, if no obstruction then try suppository (4) Acute respiratory failure with hypoxia: Plan: 2nd to #1. BIPAP HS, HFNC during the day, making improvements, down to 40L and 60% FiO2 but she desaturated after vomiting (5) Type 2 diabetes mellitus with insulin therapy: Plan: Glycemic recs appreciated from the pharmacy team. Cont NPH, lantus, and novolog. HbA1c <6.5% in September. Control adequate, monitor for hypoglycemia and hyperglycemia, no episodes the past 24 hours (6) Hyponatremia: Plan: check BMP tomorrow (7) Morbid obesity: Plan: BMI has improved s/p diuresis BMI high 30s (8) Asthma: Plan: with exacerbation - 2nd to COVID-19 infection. 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 no wheezing today cough has improved with increasing frequency of nebs to q3h at her request cont steroids, pulmonary toilet. see above. follows w/ Dr Sina Estrada. Dr Estrada was updated last week - he spoke with patient by phone, he gave encouragement. (9) Hypertension: Plan: cont metoprolol. hold aldactone. (10) GERD (gastroesophageal reflux disease): Plan: Protonix IV, change to BID with vomiting H2 susan. (11) Atrial flutter, paroxysmal: Plan: History of. No a.fib/flutter while here. (12) DVT prophylaxis: Plan: Cont lovenox 60mg BID (0.5mg/kg BID). High risk of VTE given severity of COVID illness, famHx of VTE, etc. (13) Leukocytosis: Plan: suspect leukocytosis is 2nd to effects from steroids Plan: wean oxygen as tolerated updated over the phone daily, providing support and encouragement, he is very concerned about his Admission and Anticipated Discharge Date Admission Date: November 18, 2020 Subjective patient not feeling very well today, nausea and vomiting, dark bilious vomit no BM in about a week now, abdomen is distended, some pain in RLQ breathing is about the same, she desaturated after vomiting labs checked today, WBC is 24k, Hb 14, Cr 0.75, K 4.0, CRP 1.65 will check KUB due to the vomiting and constipation, CXR while they are here since it has been 4 days since last checked Review of Systems Review of Systems: All systems reviewed & are unremarkable except as noted in Subjective Respiratory: + cough, + dyspnea and + dyspnea on exertion Gastrointestinal: + abdominal pain, + nausea, + vomiting and + constipation; no diarrhea/loose stools Physical Exam Physical Exam: General: well developed, obese female, no distress, ill appearing Neck: supple, trachea midline, normal thyroid Lungs: + cough, no wheezing, no crackles, + tachypnea, no accessory muscles Heart: regular S1 and S2, no murmur, peripheral pulses normal, capillary refill normal, no edema Abdomen: soft, distended, TTP RLQ, hypoactive bowel sounds, tympanic to percussion Extremities: normal in appearance, no cyanosis, no petechiae, strength is 5/5 bilaterally Neuro: awake, cooperative, moves all extremities, no focal motor deficits, CN II-XII intact, sensation in extremities intact, normal speech Skin: warm, dry, no rash, normal turgor Psych: Awake, alert oriented x 3, euthymic affect Results & Data Results & Data ([facility]) Vital Signs (Past 12 Hours) Vital Signs Temp Pulse Pulse Resp BP Pulse Ox 11/29/20 09:02 103 H 24 90 11/29/20 09:01 103 H 24 90 11/29/20 07:57 37.1 C 88 23 171/96 H 92 11/29/20 06:11 87 87 22 92 11/29/20 04:48 81 24 91 11/29/20 03:56 36.6 C 81 20 123/79 92 11/29/20 01:47 85 11/29/20 01:08 88 88 22 92 Laboratory Results Laboratory Results - last 24 hr 11/28/20 11/28/20 11/28/20 11:59 16:33 16:34 WBC RBC Hgb Hct MCV MCH MCHC RDW Std Deviation RDW Coeff of [place] Plt Count MPV Sodium Potassium Chloride Carbon Dioxide Anion Gap BUN Creatinine Est Cr Clr Drug Dosing Est GFR ( Amer) Est GFR (Non-Af Amer) BUN/Creatinine Ratio Glucose POC Glucose 163 H 262 H 252 H Calcium C-Reactive Protein 11/28/20 11/29/20 11/29/20 20:31 05:44 05:44 WBC 24.15 H RBC 4.85 Hgb 14.5 Hct 43.5 MCV 89.7 MCH 29.9 MCHC 33.3 RDW Std Deviation 46.8 H RDW Coeff of [place] 14.4 Plt Count 412 H MPV 10.0 Sodium 135 L Potassium 4.0 Chloride 104 Carbon Dioxide 25 Anion Gap 6.0 BUN 20 H Creatinine 0.75 Est Cr Clr Drug Dosing 109.7 Est GFR ( Amer) 104.7 Est GFR (Non-Af Amer) 90.4 BUN/Creatinine Ratio 26.4 H Glucose 92 POC Glucose 198 H Calcium 9.6 C-Reactive Protein 1.65 H 11/29/20 07:16 WBC RBC Hgb Hct MCV MCH MCHC RDW Std Deviation RDW Coeff of [place] Plt Count MPV Sodium Potassium Chloride Carbon Dioxide Anion Gap BUN Creatinine Est Cr Clr Drug Dosing Est GFR ( Amer) Est GFR (Non-Af Amer) BUN/Creatinine Ratio Glucose POC Glucose 93 Calcium C-Reactive Protein Medications Administered Current Inpatient Medications Acetaminophen (Acetaminophen 325 Mg Tab) 650 mg PO Q4H PRN PRN Reason: Pain or Fever Stop: 12/18/20 16:10 Last Admin: 11/29/20 09:53 Dose: 650 mg Documented by: Albuterol (Albuterol 0.083% Nebu Soln 3 Ml Vial) 2.5 mg NEB Q2H PRN PRN Reason: SOB/wheeze Stop: 12/22/20 23:43 Albuterol (Albut/Ipratrop 3mg/0.5mg Neb 3 Ml Vial) 3 ml NEB Q3HWA [facility] Stop: 12/27/20 11:59 Last Admin: 11/29/20 08:58 Dose: 3 ml Documented by: Aspirin (Aspirin 81 Mg Ectab) 81 mg PO QAM [facility] Stop: 12/19/20 08:59 Last Admin: 11/29/20 09:36 Dose: 81 mg Documented by: Baricitinib (4 Mg Once Daily X14 Days) 4 mg PO Q24H [facility]; Protocol Stop: 12/02/20 17:59 Last Admin: 11/28/20 18:08 Dose: 4 mg Documented by: Benzonatate (Benzonatate 100 Mg Capsule) 200 mg PO TID [facility] Stop: 12/21/20 11:09 Last Admin: 11/29/20 09:36 Dose: 200 mg Documented by: Bupropion HCl (Bupropion Sr 100 Mg Tabcr) 200 mg PO BID [facility] Stop: 12/18/20 20:59 Last Admin: 11/29/20 09:37 Dose: 200 mg Documented by: Nystatin 30 ml/ Dexamethasone 3.75 mg/ Diphenhydramine HCl 300 mg/ Sucrose 45 ml/Microcrystalline Cellulose 45 ml/ [employer]IER 1 ea 0 ml PO QID [facility] Stop: 12/21/20 12:59 Last Admin: 11/29/20 09:54 Dose: 5 ml Documented by: Cyanocobalamin (Cyanocobalamin 500 Mcg Tablet (Vitamin B-12)) 2,500 mcg PO QAM [facility] Stop: 12/19/20 08:59 Last Admin: 11/29/20 09:37 Dose: 2,500 mcg Documented by: Dextromethorphan Polymer Complex (Dextromethorphan Polymr Complx 30 Mg/5 Ml Udp) 30 mg PO Q6H PRN PRN Reason: Cough Stop: 12/18/20 19:47 Last Admin: 11/29/20 09:36 Dose: 30 mg Documented by: Dextrose (Dextrose 50% 50 Ml Syringe) 25 - 50 ml IV UD PRN; Protocol PRN Reason: Hypoglycemia Protocol Stop: 12/19/20 07:29 Diclofenac Sodium (Diclofenac Sod 1% Gel 100 Gm Tube) 4 gm EXT Q12 [facility] Stop: 12/19/20 20:59 Last Admin: 11/29/20 09:38 Dose: 4 gm Documented by: Enoxaparin Sodium (Enoxaparin Inj 60 Mg/0.6 Ml Syr) 60 mg SQ BID [facility] Stop: 12/21/20 08:59 Last Admin: 11/29/20 09:38 Dose: 60 mg Documented by: Fluticasone Furoate (Fluticasone Furoate 200mcg 14 Puffs/Inhaler) 1 puffs INH DAILY [facility]; Protocol Stop: 12/21/20 11:59 Last Admin: 11/29/20 09:37 Dose: 1 puffs Documented by: Furosemide (Furosemide 40 Mg Tab) 40 mg PO QAM [facility] Stop: 12/22/20 08:59 Last Admin: 11/29/20 09:36 Dose: 40 mg Documented by: Glucagon (Glucagon For Inj 1 Mg Vial) 1 mg IM UD PRN; Protocol PRN Reason: Hypoglycemia Protocol Stop: 12/19/20 07:29 Glucose (Glucose 40% Gel 15 Gm Tube) 15 - 30 gm PO UD PRN; Protocol PRN Reason: Hypoglycemia Protocol Stop: 12/19/20 07:29 Glucose (Glucose 10 Tabs/Tube) 4 - 8 tabs PO UD PRN; Protocol PRN Reason: Hypoglycemia Protocol Stop: 12/19/20 07:29 Guaifenesin (Guaifenesin 600 Mg Tabcr) 600 mg PO Q12 [facility] Stop: 12/21/20 20:59 Last Admin: 11/29/20 09:35 Dose: 600 mg Documented by: Guaifenesin/Codeine Phosphate (Guaifenesin/Codeine 100mg/10mg 5ml Udc) 5 ml PO Q6H PRN PRN Reason: Cough Stop: 12/21/20 11:08 Last Admin: 11/28/20 17:07 Dose: 5 ml Documented by: Dexamethasone 6 mg/ Syringe 1.5 mls @ 1 mls/min IV QAM [facility]; Protocol Stop: 12/02/20 23:59 Last Admin: 11/29/20 09:35 Dose: 1 mls/min Documented by: Famotidine 20 mg/ Syringe 5 mls @ 2.5 mls/min IV BID [facility] Stop: 12/19/20 09:59 Last Admin: 11/29/20 09:34 Dose: 2.5 mls/min Documented by: Furosemide 40 mg/ Syringe 4 mls @ 4 mls/min IV QAM [facility] Stop: 12/20/20 08:59 Last Admin: 11/21/20 08:58 Dose: 4 mls/min Documented by: Lorazepam (Ativan) 0.25 mg in 0.5 mls @ 0.5 mls/min IV Q6H PRN PRN Reason: anxiety Stop: 12/25/20 15:09 Last Admin: 11/29/20 01:37 Dose: 0.5 mls/min Documented by: Insulin Aspart (Insulin Aspart 100 Units/Ml 3 Ml Pen) 0 units SC ACHS [facility]; Protocol Stop: 12/28/20 11:29 Last Admin: 11/29/20 09:34 Dose: Not Given Documented by: Insulin Glargine (Insulin Glargine Solostar 100 Units/Ml 3 Ml Pen) 4 units SC HS [facility] Stop: 12/29/20 20:59 Insulin Human NPH (Insulin Human Nph) 44 units SC DAILY [facility]; Protocol Stop: 12/26/20 08:59 Last Admin: 11/29/20 09:39 Dose: 44 units Documented by: Lidocaine (Lidocaine 5% 1 Patch) 1 patch TD QAM [facility] Stop: 12/19/20 09:59 Last Admin: 11/29/20 09:35 Dose: 1 patch Documented by: Lorazepam (Lorazepam 0.5 Mg Tab) 0.5 mg PO Q6H PRN PRN Reason: Anxiety Stop: 12/18/20 19:50 Last Admin: 11/25/20 04:17 Dose: 0.5 mg Documented by: Menthol (Cough Drop (Sugar Free) Anahy 24 Anahy/1 Box) 1 anahy BUCCAL Q1H PRN PRN Reason: Sore Throat Stop: 12/23/20 16:29 Metoprolol Tartrate (Metoprolol Tartrate 25 Mg Tab) 75 mg PO BID [facility] Stop: 12/18/20 20:59 Last Admin: 11/29/20 09:35 Dose: 75 mg Documented by: Miscellaneous (Carbohydrates For Hypoglycemia ) 15 - 30 gm PO UD PRN PRN Reason: Hypoglycemia Treatment Stop: 12/19/20 07:29 Miscellaneous (Remove Lidoderm Patch) 1 ea N/A DAILY@2100 [facility] Stop: 12/19/20 20:59 Last Admin: 11/28/20 20:50 Dose: 1 ea Documented by: Miscellaneous Information (Pharmacy Glycemic Mgmt Consult) 1 ea N/A UD PRN PRN Reason: Consult Stop: 12/18/20 16:10 Montelukast Sodium (Montelukast Sodium 10 Mg Tablet) 10 mg PO QPM [facility] Stop: 12/18/20 20:59 Last Admin: 11/28/20 20:26 Dose: 10 mg Documented by: Morphine Sulfate (Morphine Sulfate 2 Mg/Ml Carp) 2 mg IV Q4H PRN PRN Reason: Pain Stop: 12/03/20 09:33 Last Admin: 11/27/20 21:28 Dose: 2 mg Documented by: Mupirocin (Mupirocin 2% Oint 22 Gm Tube) 1 appln EXT Q12 [facility] Stop: 12/19/20 20:59 Last Admin: 11/29/20 09:38 Dose: 1 appln Documented by: Ondansetron HCl (Ondansetron Inj 2 Mg/Ml 2 Ml Vial) 4 mg IV Q6H PRN PRN Reason: Nausea Stop: 12/18/20 16:10 Last Admin: 11/29/20 10:56 Dose: 4 mg Documented by: Pantoprazole Sodium (Pantoprazole 40 Mg Tab) 40 mg PO BID [facility]; Protocol Stop: 12/18/20 20:59 Last Admin: 11/29/20 09:36 Dose: 40 mg Documented by: Polyethylene Glycol (Polyethylene (Miralax) 17 Gm Pack) 17 gm PO DAILY PRN PRN Reason: Constipation Stop: 12/18/20 16:10 Polyethylene Glycol (Polyethylene (Miralax) 17 Gm Pack) 17 gm PO DAILY [facility] Stop: 12/24/20 14:59 Last Admin: 11/29/20 09:39 Dose: Not Given Documented by: Potassium Chloride (Potassium Chloride Crtab 20 Meq Tabcr) 20 meq PO BID [facility] Stop: 12/19/20 20:59 Last Admin: 11/29/20 09:35 Dose: 20 meq Documented by: Sennosides (Senna 8.6 Mg Tab) 17.2 mg PO QAM [facility] Stop: 12/24/20 14:59 Last Admin: 11/29/20 09:36 Dose: 17.2 mg Documented by: Sodium Chloride (Sodium Chloride 0.65% Na Soln 45 Ml ([place])) 1 sprays NA Q1H PRN PRN Reason: dry nose Stop: 12/19/20 16:49 Sodium Chloride (Sodium Chloride 0.65% Na Soln 45 Ml ([place])) 2 sprays NA Q1H PRN PRN Reason: dryness of nose Stop: 12/23/20 16:40 Spironolactone (Spironolactone 25 Mg Tab) 50 mg PO BID [facility] Stop: 12/18/20 20:59 Last Admin: 11/21/20 08:59 Dose: 50 mg Documented by: PG Care Time/CCT Total # of Minutes Spent Total Time Spent with Patient: Total time spent is greater than 50% in coordination of care (as documented) at patient's floor/unit and/or counseling patient: Coding Level of Care Code 10875 Subseq Hosp Care Lvl 3 Diagnoses Pneumonia due to 2019 novel coronavirus U07.1; J12.82 Acute respiratory failure with hypoxia J96.01 Type 2 diabetes mellitus with insulin therapy E11.9; Z79.4 Hyponatremia E87.1 Morbid obesity E66.01 Asthma J45.909 Hypertension I10 GERD (gastroesophageal reflux disease) K21.9 Atrial flutter, paroxysmal I48.92 DVT prophylaxis Z29.9 Constipation K59.00 Leukocytosis D72.829 Vomiting R11.10
[2020-11-29] MEDS ORDERED: PROMETHAZINE HCL 12.5 MG in SODIUM CHLORIDE 0.9% 50 ML IV STA (11:59)
--- NOTE | 2020-11-29 12:14 | Pharmacy Report ---
Pharmacy Glycemic Short Note 2 - Date of Service November 29, 2020 - Glycemic Short BSG Results (Last 24 hours): 11/28/20 11/28/20 11/28/20 16:33 16:34 20:31 Glucose POC Glucose 262 H 252 H 198 H 11/29/20 11/29/20 05:44 07:16 Glucose 92 POC Glucose 93 OUTPATIENT ANTIDIABETIC REGIMEN: * Basaglar 60 units HS * Ozempic 0.5mg SQ monthly * Metformin ER 1000mg PO BID * HbA1c 6.3% on 09/27/20 ASSESSMENT: 11/29 * Stressors stable * AM fasting BSG below goal range - will continue NPH but reduce Lantus * Post-prandial BSG's elevated yesterday. Will tighten CHO ratio again 11/28 * Stressors stable * AM fasting BSG in range - no change to basal insulin * PO intake increased yesterday and was associated with increased post-prandial BSG's despite tightening of CHO ratio at lunch. Will tighten further and also tighten correction factor 11/27 * Dexamethasone day 9 - clarifying duration of therapy (currently 30 days) * AM fasting BSG stable and wnl - no changes to NPH/Lantus * PO intake increased with breakfast today, and lunch BSG with associated increase. Will tighten CHO ratio. PLAN FOR INPATIENT GLYCEMIC CONTROL: * Hold outpatient Metformin and Ozempic diabetes medications * Basal insulin * Lantus to 4 units SQ HS * NPH 44 units SQ daily with IV Dexamethasone * Bolus insulin * NovoLog per scale ACHS or Q6hrs while NPO * Goal Range: Low 110 mg/dL - High 140 mg/dL * Correction Factor: 15 mg/dL/unit * Nutritional / Prandial insulin per carb ratio of 1 unit per 3.5 grams CHO consumed PLAN FOR DISCHARGE: * A1c 6.3% at goal. Continue home regimen assuming frequent hypoglycemia as an outpatient is not occurring and assuming no contraindications exist at discharge
--- NOTE | 2020-11-29 12:41 | XRay Report ---
XR chest 1V portable HISTORY: hypoxia COMPARISON: Chest 11/25/2020. FINDINGS: There are low lung volumes. No pneumothorax. No pleural effusions. The heart remains enlarg ed. There is progressive perihilar interstitial thickening and hazy airspace opacities. IMPRESSION: Progressive perihilar interstitial thickening and hazy airspace opacities. This could represent worse letha pulmonary edema or pneumonia. ACT 112: Negative or not required by law. Electronically signed by: Oli Harvey M.D. 11/29/2020 12:40 PM
--- NOTE | 2020-11-29 12:43 | XRay Report ---
KUB HISTORY: Acute generalized abdominal pain with vomiting and constipation constipation, vomiting COMPARISON: KUB 09/28/2020 FINDINGS: Moderate gaseous distention of the stomach. Mild gaseous distention of the large bowel. No evidence of small bowel obstruction. Mild to moderate fecal retention. Bilateral renal calculi redem onstrated measuring up to 8 mm bilaterally. No ureteral calculi are identified. No pneumoperitoneum o r pneumatosis. Degenerative changes of the spine, pelvis and hips. No fracture. IMPRESSION: 1. Nonobstructive bowel gas pattern. 2. Mild to moderate fecal retention with mild gaseous distention of the colon. 3. Bilateral nephrolithiasis. No ureteral calculi identified. ACT 112: Negative or not required by law. The above report was generated using voice recognition software. It may contain grammatical, syntax o r spelling errors. Electronically signed by: Catrachito Foote M.D. 11/29/2020 12:42 PM
[2020-11-29] MEDS: LORazepam 0.5 MG TAB PO PRN ×2 (12:51→21:29)
[2020-11-29] MEDS: guaiFENesin/CODEINE 100MG/10MG 5ML UDC PO PRN (12:51)
[2020-11-29] MEDS: SODIUM CHLORIDE 0.65% NA SOLN 45 ML (OCEAN) PRN (12:54)
[2020-11-29] MEDS ORDERED: bisacodyL 10 MG SUPP PR STA (13:11)
[2020-11-29] MEDS: 4 mg Once Daily x14 days PO SCH (18:02)
[2020-11-29] MEDS ORDERED: INSULIN GLARGINE SOLOSTAR 100 UNITS/ML 3 ML PEN SC SCH (21:00)
[2020-11-29] MEDS ORDERED: POLYETHYLENE (MIRALAX) 17 GM PACK PO SCH (21:00)
[2020-11-29] MEDS: PANTOprazole 40 MG in SYRINGE 0 ML IV SCH (21:29)
[2020-11-29] MEDS ORDERED: bisacodyL 10 MG SUPP PR ONE (21:30)
[2020-11-29] MEDS: MONTELUKAST SODIUM 10 MG TABLET PO SCH (21:31)
[2020-11-30] MEDS: ALBUT/IPRATROP 3MG/0.5MG NEB 3 ML VIAL NEB SCH ×6 (05:47→22:08)
[2020-11-30] MEDS: INSULIN ASPART 100 UNITS/ML 3 ML PEN SC SCH ×4 (08:32→20:12)
[2020-11-30] MEDS: PANTOprazole 40 MG in SYRINGE 0 ML IV SCH ×2 (08:33→21:42)
[2020-11-30] MEDS: dexAMETHasone 6 MG in SYRINGE 0 ML IV SCH (08:33)
[2020-11-30] MEDS: DICLOFENAC SOD 1% GEL 100 GM TUBE EXT SCH ×2 (08:34→21:44)
[2020-11-30] MEDS: ONDANSETRON INJ 2 MG/ML 2 ML VIAL IV PRN (08:34)
[2020-11-30] MEDS: ACETAMINOPHEN 325 MG TAB PO PRN ×3 (08:34→21:41)
[2020-11-30] MEDS: ASPIRIN 81 MG ECTAB PO SCH (08:35)
[2020-11-30] MEDS: BENZONATATE 100 MG CAPSULE PO SCH ×3 (08:35→21:40)
[2020-11-30] MEDS: SODIUM CHLORIDE 0.65% NA SOLN 45 ML (OCEAN) PRN (08:35)
[2020-11-30] MEDS: FUROSEMIDE 40 MG TAB PO SCH (08:35)
[2020-11-30] MEDS: buPROPion SR 100 MG TABCR PO SCH ×2 (08:35→21:42)
[2020-11-30] MEDS: POTASSIUM CHLORIDE CRTAB 20 MEQ TABCR PO SCH ×2 (08:36→21:41)
[2020-11-30] MEDS: METOPROLOL TARTRATE 25 MG TAB PO SCH ×2 (08:36→21:42)
[2020-11-30] MEDS: CYANOCOBALAMIN 500 MCG TABLET (VITAMIN B-12) PO SCH (08:36)
[2020-11-30] MEDS: guaiFENesin 600 MG TABCR PO SCH ×2 (08:36→21:42)
[2020-11-30] MEDS: SENNA 8.6 MG TAB PO SCH (08:36)
[2020-11-30] MEDS: ENOXAPARIN INJ 60 MG/0.6 ML SYR SQ SCH ×2 (08:37→21:42)
[2020-11-30] MEDS: FLUTICASONE FUROATE 200MCG 14 PUFFS/INHALER INH SCH (08:37)
[2020-11-30] MEDS: DEXTROMETHORPHAN POLYMR COMPLX 30 MG/5 ML UDP PO PRN ×2 (08:38→17:30)
[2020-11-30] MEDS: INSULIN HUMAN NPH SC SCH (08:39)
[2020-11-30] MEDS: MUPIROCIN 2% OINT 22 GM TUBE EXT SCH ×2 (08:40→21:45)
[2020-11-30] MEDS: LIDOCAINE 5% 1 PATCH TD SCH (08:40)
[2020-11-30] MEDS: FAMOTIDINE 20 MG in SYRINGE 3 ML IV SCH ×2 (08:55→21:42)
[2020-11-30] MEDS: POLYETHYLENE (MIRALAX) 17 GM PACK PO SCH ×3 (08:55→21:40)
[2020-11-30] MEDS: LORazepam 0.5 MG TAB PO PRN ×2 (12:14→21:41)
[2020-11-30] MEDS: guaiFENesin/CODEINE 100MG/10MG 5ML UDC PO PRN (12:14)
--- NOTE | 2020-11-30 12:25 | Pharmacy Report ---
Pharmacy Glycemic Short Note 2 - Date of Service November 30, 2020 - Glycemic Short BSG Results (Last 24 hours): 11/29/20 11/29/20 11/29/20 12:49 16:59 20:12 POC Glucose 209 H 164 H 190 H 11/30/20 11/30/20 11/30/20 00:10 08:18 11:38 POC Glucose 111 H 84 148 H OUTPATIENT ANTIDIABETIC REGIMEN: * Basaglar 60 units HS * Ozempic 0.5mg SQ monthly * Metformin ER 1000mg PO BID * HbA1c 6.3% on 09/27/20 ASSESSMENT: 11/30 * Stressors stable - dexamethasone * AM fasting BSG below goal range - will continue NPH but discontinue Lantus * Post-prandial BSG's mildly elevated x2 yesterday, but good today at lunch. Will keep for now. May increase NPH slightly tomorrow if AM fasting BSG is >100 mg/dL 11/29 * Stressors stable * AM fasting BSG below goal range - will continue NPH but reduce Lantus * Post-prandial BSG's elevated yesterday. Will tighten CHO ratio again 11/28 * Stressors stable * AM fasting BSG in range - no change to basal insulin * PO intake increased yesterday and was associated with increased post-prandial BSG's despite tightening of CHO ratio at lunch. Will tighten further and also tighten correction factor PLAN FOR INPATIENT GLYCEMIC CONTROL: * Hold outpatient Metformin and Ozempic diabetes medications * Basal insulin * Discontinue Lantus * NPH 44-48 units SQ daily with IV Dexamethasone, depending on AM fasting BSG * Bolus insulin * NovoLog per scale ACHS or Q6hrs while NPO * Goal Range: Low 110 mg/dL - High 140 mg/dL * Correction Factor: 15 mg/dL/unit * Nutritional / Prandial insulin per carb ratio of 1 unit per 3.5 grams CHO consumed PLAN FOR DISCHARGE: * A1c 6.3% at goal. Continue home regimen assuming frequent hypoglycemia as an outpatient is not occurring and assuming no contraindications exist at discharge
--- NOTE | 2020-11-30 12:33 | Hospitalist Progress Note ---
Date of Service November 30, 2020 Assessment & Plan (1) Pneumonia due to 2019 novel coronavirus: Plan: SEVERE COVID pneumonia. almost 3 weeks into illness improvement the past 3 days, 35L and 50% today Day #13 of baricitinib. Day #13 of IV dexamethasone 6mg daily, will extend a few more days Completed 5-day course of Remdesivir. Procal x 2 both negative during the stay; abx deferred. CRP initially high but improved with steroids/baricitinib. Continue aggressive pulmonary toilet. Nebs q3 WA, helping the most with cough tessalon 200mg TID, mucinex 600mg BID, guaitussin ac q6h prn. DVT proph - lovenox BID. She has had copious diuresis since admission - 10+ liters. continue Lasix PO today Cr and K are stable (2) Vomiting: Plan: started 11/29, dark bilious vomit abdomen is distended, hypoactive bowel sounds, no BM for a week check KUB - heavy stool burden left colon and sigmoid, no obstruction or ileus, needs to move bowels Miralax TID, can try suppository, on Senna had a small BM this morning, passing flatus advance to low fiber diet (3) Constipation: Plan: senna + miralax small BM morning of 11/30 Miralax increased to TID no obstruction or ileus on KUB 11/29 (4) Acute respiratory failure with hypoxia: Plan: 2nd to #1. BIPAP HS, HFNC during the day, making improvements, down to 35L and 50% FiO2 (5) Type 2 diabetes mellitus with insulin therapy: Plan: Glycemic recs appreciated from the pharmacy team. Cont NPH, lantus, and novolog. HbA1c <6.5% in September. Control adequate, monitor for hypoglycemia and hyperglycemia, no episodes the past 24 hours (6) Hyponatremia: Plan: check BMP tomorrow (7) Morbid obesity: Plan: BMI has improved s/p diuresis BMI high 30s (8) Asthma: Plan: with exacerbation - 2nd to COVID-19 infection. 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 no wheezing today cough has improved with increasing frequency of nebs to q3h at her request cont steroids, pulmonary toilet. see above. follows w/ Dr Sina Estrada. Dr Estrada was updated last week - he spoke with patient by phone, he gave encouragement. (9) Hypertension: Plan: cont metoprolol. hold aldactone. (10) GERD (gastroesophageal reflux disease): Plan: Protonix IV, change to BID with vomiting H2 susan. (11) Atrial flutter, paroxysmal: Plan: History of. No a.fib/flutter while here. (12) DVT prophylaxis: Plan: Cont lovenox 60mg BID (0.5mg/kg BID). High risk of VTE given severity of COVID illness, famHx of VTE, etc. (13) Leukocytosis: Plan: suspect leukocytosis is 2nd to effects from steroids Plan: wean oxygen as tolerated updated over the phone daily, providing support and encouragement, he is very concerned about his Admission and Anticipated Discharge Date Admission Date: November 18, 2020 Subjective patient was able to have a small BM this morning, passing some flatus overall she feels better down to 35L and 50% today, making small improvements told her the goal is to be off vapotherm this weekend, then get stronger with therapy drinking liquids fine, will advance to low fiber tomorrow no chest pain, + cough but better no labs today Review of Systems Review of Systems: All systems reviewed & are unremarkable except as noted in Subjective Respiratory: + cough and + dyspnea Cardiovascular: no chest pain and no edema Gastrointestinal: no abdominal pain, no nausea, no vomiting, no constipation and no diarrhea/loose stools Physical Exam Physical Exam: General: well developed, obese female, no distress, ill appearing Neck: supple, trachea midline, normal thyroid Lungs: + cough, no wheezing, no crackles, + tachypnea, no accessory muscles Heart: regular S1 and S2, no murmur, peripheral pulses normal, capillary refill normal, no edema Abdomen: soft, distended, NT, normal bowel sounds, tympanic to percussion Extremities: normal in appearance, no cyanosis, no petechiae, strength is 5/5 bilaterally Neuro: awake, cooperative, moves all extremities, no focal motor deficits, CN II-XII intact, sensation in extremities intact, normal speech Skin: warm, dry, no rash, normal turgor Psych: Awake, alert oriented x 3, euthymic affect Results & Data Results & Data ([facility]) Vital Signs (Past 12 Hours) Vital Signs Temp Pulse Pulse Resp BP Pulse Ox 11/30/20 12:18 101 H 22 91 11/30/20 12:17 100 H 22 91 11/30/20 11:32 36.7 C 83 20 115/70 92 11/30/20 09:03 98 H 22 92 11/30/20 09:02 97 H 24 92 11/30/20 07:21 36.8 C 87 20 149/87 H 93 11/30/20 05:50 89 17 91 11/30/20 05:48 89 17 91 11/30/20 03:29 36.5 C 86 16 140/84 90 11/30/20 02:34 82 33 H 93 Laboratory Results Laboratory Results - last 24 hr 11/29/20 11/29/20 11/29/20 12:49 16:59 20:12 POC Glucose 209 H 164 H 190 H 11/30/20 11/30/20 11/30/20 00:10 08:18 11:38 POC Glucose 111 H 84 148 H Medications Administered Current Inpatient Medications Acetaminophen (Acetaminophen 325 Mg Tab) 650 mg PO Q4H PRN PRN Reason: Pain or Fever Stop: 12/18/20 16:10 Last Admin: 11/30/20 08:34 Dose: 650 mg Documented by: Albuterol (Albuterol 0.083% Nebu Soln 3 Ml Vial) 2.5 mg NEB Q2H PRN PRN Reason: SOB/wheeze Stop: 12/22/20 23:43 Albuterol (Albut/Ipratrop 3mg/0.5mg Neb 3 Ml Vial) 3 ml NEB Q3HWA [facility] Stop: 12/27/20 11:59 Last Admin: 11/30/20 12:16 Dose: 3 ml Documented by: Aspirin (Aspirin 81 Mg Ectab) 81 mg PO QAM [facility] Stop: 12/19/20 08:59 Last Admin: 11/30/20 08:35 Dose: 81 mg Documented by: Baricitinib (4 Mg Once Daily X14 Days) 4 mg PO Q24H [facility]; Protocol Stop: 12/02/20 17:59 Last Admin: 11/29/20 18:02 Dose: 4 mg Documented by: Benzonatate (Benzonatate 100 Mg Capsule) 200 mg PO TID [facility] Stop: 12/21/20 11:09 Last Admin: 11/30/20 12:14 Dose: 200 mg Documented by: Bupropion HCl (Bupropion Sr 100 Mg Tabcr) 200 mg PO BID GIANNA Stop: 12/18/20 20:59 Last Admin: 11/30/20 08:35 Dose: 200 mg Documented by: Nystatin 30 ml/ Dexamethasone 3.75 mg/ Diphenhydramine HCl 300 mg/ Sucrose 45 ml/Microcrystalline Cellulose 45 ml/ [employer] 1 ea 0 ml PO QID GIANNA Stop: 12/21/20 12:59 Last Admin: 11/30/20 12:14 Dose: 5 ml Documented by: Cyanocobalamin (Cyanocobalamin 500 Mcg Tablet (Vitamin B-12)) 2,500 mcg PO QAM [facility] Stop: 12/19/20 08:59 Last Admin: 11/30/20 08:36 Dose: 2,500 mcg Documented by: Dextromethorphan Polymer Complex (Dextromethorphan Polymr Complx 30 Mg/5 Ml Udp) 30 mg PO Q6H PRN PRN Reason: Cough Stop: 12/18/20 19:47 Last Admin: 11/30/20 08:38 Dose: 30 mg Documented by: Dextrose (Dextrose 50% 50 Ml Syringe) 25 - 50 ml IV UD PRN; Protocol PRN Reason: Hypoglycemia Protocol Stop: 12/19/20 07:29 Diclofenac Sodium (Diclofenac Sod 1% Gel 100 Gm Tube) 4 gm EXT Q12 [facility] Stop: 12/19/20 20:59 Last Admin: 11/30/20 08:34 Dose: 4 gm Documented by: Enoxaparin Sodium (Enoxaparin Inj 60 Mg/0.6 Ml Syr) 60 mg SQ BID [facility] Stop: 12/21/20 08:59 Last Admin: 11/30/20 08:37 Dose: 60 mg Documented by: Fluticasone Furoate (Fluticasone Furoate 200mcg 14 Puffs/Inhaler) 1 puffs INH DAILY GIANNA; Protocol Stop: 12/21/20 11:59 Last Admin: 11/30/20 08:37 Dose: 1 puffs Documented by: Furosemide (Furosemide 40 Mg Tab) 40 mg PO QAM [facility] Stop: 12/22/20 08:59 Last Admin: 11/30/20 08:35 Dose: 40 mg Documented by: Glucagon (Glucagon For Inj 1 Mg Vial) 1 mg IM UD PRN; Protocol PRN Reason: Hypoglycemia Protocol Stop: 12/19/20 07:29 Glucose (Glucose 40% Gel 15 Gm Tube) 15 - 30 gm PO UD PRN; Protocol PRN Reason: Hypoglycemia Protocol Stop: 12/19/20 07:29 Glucose (Glucose 10 Tabs/Tube) 4 - 8 tabs PO UD PRN; Protocol PRN Reason: Hypoglycemia Protocol Stop: 12/19/20 07:29 Guaifenesin (Guaifenesin 600 Mg Tabcr) 600 mg PO Q12 [facility] Stop: 12/21/20 20:59 Last Admin: 11/30/20 08:36 Dose: 600 mg Documented by: Guaifenesin/Codeine Phosphate (Guaifenesin/Codeine 100mg/10mg 5ml Udc) 5 ml PO Q6H PRN PRN Reason: Cough Stop: 12/21/20 11:08 Last Admin: 11/30/20 12:14 Dose: 5 ml Documented by: Dexamethasone 6 mg/ Syringe 1.5 mls @ 1 mls/min IV QAM [facility]; Protocol Stop: 12/02/20 23:59 Last Admin: 11/30/20 08:33 Dose: 1 mls/min Documented by: Famotidine 20 mg/ Syringe 5 mls @ 2.5 mls/min IV BID GIANNA Stop: 12/19/20 09:59 Last Admin: 11/30/20 08:55 Dose: 2.5 mls/min Documented by: Lorazepam (Ativan) 0.25 mg in 0.5 mls @ 0.5 mls/min IV Q6H PRN PRN Reason: anxiety Stop: 12/25/20 15:09 Last Admin: 11/29/20 01:37 Dose: 0.5 mls/min Documented by: Pantoprazole Sodium 40 mg/ (Syringe) 10 mls @ 5 mls/min IV BID GIANNA Stop: 12/29/20 20:59 Last Admin: 11/30/20 08:33 Dose: 5 mls/min Documented by: Insulin Aspart (Insulin Aspart 100 Units/Ml 3 Ml Pen) 0 units SC ACHS GIAN[facility]; Protocol Stop: 12/28/20 11:29 Last Admin: 11/30/20 12:12 Dose: 7 units Documented by: Insulin Human NPH (Insulin Human Nph) 0 units SC DAILY GIANNA; Protocol Stop: 12/30/20 08:59 Last Admin: 11/30/20 08:39 Dose: 44 units Documented by: Lidocaine (Lidocaine 5% 1 Patch) 1 patch TD QAM [facility] Stop: 12/19/20 09:59 Last Admin: 11/30/20 08:40 Dose: Not Given Documented by: Lorazepam (Lorazepam 0.5 Mg Tab) 0.5 mg PO Q6H PRN PRN Reason: Anxiety Stop: 12/18/20 19:50 Last Admin: 11/30/20 12:14 Dose: 0.5 mg Documented by: Menthol (Cough Drop (Sugar Free) Anahy 24 Anahy/1 Box) 1 anahy BUCCAL Q1H PRN PRN Reason: Sore Throat Stop: 12/23/20 16:29 Last Admin: 11/29/20 12:52 Dose: 1 anahy Documented by: Metoprolol Tartrate (Metoprolol Tartrate 25 Mg Tab) 75 mg PO BID [facility] Stop: 12/18/20 20:59 Last Admin: 11/30/20 08:36 Dose: 75 mg Documented by: Miscellaneous (Carbohydrates For Hypoglycemia ) 15 - 30 gm PO UD PRN PRN Reason: Hypoglycemia Treatment Stop: 12/19/20 07:29 Miscellaneous (Remove Lidoderm Patch) 1 ea N/A DAILY@2100 [facility] Stop: 12/19/20 20:59 Last Admin: 11/29/20 21:45 Dose: 1 ea Documented by: Miscellaneous Information (Pharmacy Glycemic Mgmt Consult) 1 ea N/A UD PRN PRN Reason: Consult Stop: 12/18/20 16:10 Montelukast Sodium (Montelukast Sodium 10 Mg Tablet) 10 mg PO QPM [facility] Stop: 12/18/20 20:59 Last Admin: 11/29/20 21:31 Dose: 10 mg Documented by: Morphine Sulfate (Morphine Sulfate 2 Mg/Ml Carp) 2 mg IV Q4H PRN PRN Reason: Pain Stop: 12/03/20 09:33 Last Admin: 11/27/20 21:28 Dose: 2 mg Documented by: Mupirocin (Mupirocin 2% Oint 22 Gm Tube) 1 appln EXT Q12 [facility] Stop: 12/19/20 20:59 Last Admin: 11/30/20 08:40 Dose: 1 appln Documented by: Ondansetron HCl (Ondansetron Inj 2 Mg/Ml 2 Ml Vial) 4 mg IV Q6H PRN PRN Reason: Nausea Stop: 12/18/20 16:10 Last Admin: 11/30/20 08:34 Dose: 4 mg Documented by: Polyethylene Glycol (Polyethylene (Miralax) 17 Gm Pack) 17 gm PO TID [facility] Stop: 12/29/20 13:59 Last Admin: 11/30/20 12:14 Dose: 17 gm Documented by: Potassium Chloride (Potassium Chloride Crtab 20 Meq Tabcr) 20 meq PO BID [facility] Stop: 12/19/20 20:59 Last Admin: 11/30/20 08:36 Dose: 20 meq Documented by: Sennosides (Senna 8.6 Mg Tab) 17.2 mg PO QAM [facility] Stop: 12/24/20 14:59 Last Admin: 11/30/20 08:36 Dose: 17.2 mg Documented by: Sodium Chloride (Sodium Chloride 0.65% Na Soln 45 Ml ([place])) 1 sprays NA Q1H PRN PRN Reason: dry nose Stop: 12/19/20 16:49 Sodium Chloride (Sodium Chloride 0.65% Na Soln 45 Ml ([place])) 2 sprays NA Q1H PRN PRN Reason: dryness of nose Stop: 12/23/20 16:40 Last Admin: 11/30/20 08:35 Dose: 2 sprays Documented by: PG Care Time/CCT Total # of Minutes Spent Total Time Spent with Patient: Total time spent is greater than 50% in coordination of care (as documented) at patient's floor/unit and/or counseling patient: Coding Level of Care Code 65957 Subseq Hosp Care Lvl 3 Diagnoses Pneumonia due to 2019 novel coronavirus U07.1; J12.82 Vomiting R11.10 Constipation K59.00 Acute respiratory failure with hypoxia J96.01 Type 2 diabetes mellitus with insulin therapy E11.9; Z79.4 Hyponatremia E87.1 Morbid obesity E66.01 Asthma J45.909 Hypertension I10 GERD (gastroesophageal reflux disease) K21.9 Atrial flutter, paroxysmal I48.92 DVT prophylaxis Z29.9 Leukocytosis D72.829
[2020-11-30] MEDS: 4 mg Once Daily x14 days PO SCH (17:29)
[2020-11-30] MEDS: MONTELUKAST SODIUM 10 MG TABLET PO SCH (21:41)
[2020-12-01] MEDS: ALBUT/IPRATROP 3MG/0.5MG NEB 3 ML VIAL NEB SCH ×6 (05:15→20:16)
[2020-12-01] MEDS: LIDOCAINE 5% 1 PATCH TD SCH (07:54)
[2020-12-01] MEDS: ENOXAPARIN INJ 60 MG/0.6 ML SYR SQ SCH ×2 (08:01→20:38)
[2020-12-01] MEDS: PANTOprazole 40 MG in SYRINGE 0 ML IV SCH ×2 (08:01→20:42)
[2020-12-01] MEDS: dexAMETHasone 6 MG in SYRINGE 0 ML IV SCH (08:01)
[2020-12-01] MEDS: ONDANSETRON INJ 2 MG/ML 2 ML VIAL IV PRN (08:01)
[2020-12-01] MEDS: FAMOTIDINE 20 MG in SYRINGE 3 ML IV SCH ×2 (08:01→20:45)
[2020-12-01] MEDS: SODIUM CHLORIDE 0.65% NA SOLN 45 ML (OCEAN) PRN (08:02)
[2020-12-01] MEDS: FLUTICASONE FUROATE 200MCG 14 PUFFS/INHALER INH SCH (08:02)
[2020-12-01] MEDS: DICLOFENAC SOD 1% GEL 100 GM TUBE EXT SCH ×2 (08:02→20:41)
[2020-12-01] MEDS: POLYETHYLENE (MIRALAX) 17 GM PACK PO SCH ×3 (08:02→20:40)
[2020-12-01] MEDS: METOPROLOL TARTRATE 25 MG TAB PO SCH ×2 (08:03→20:39)
[2020-12-01] MEDS: FUROSEMIDE 40 MG TAB PO SCH (08:03)
[2020-12-01] MEDS: guaiFENesin 600 MG TABCR PO SCH ×2 (08:03→20:36)
[2020-12-01] MEDS: BENZONATATE 100 MG CAPSULE PO SCH ×3 (08:03→20:40)
[2020-12-01] MEDS: SENNA 8.6 MG TAB PO SCH (08:03)
[2020-12-01] MEDS: ASPIRIN 81 MG ECTAB PO SCH (08:03)
[2020-12-01] MEDS: DEXTROMETHORPHAN POLYMR COMPLX 30 MG/5 ML UDP PO PRN ×2 (08:03→17:19)
[2020-12-01] MEDS: buPROPion SR 100 MG TABCR PO SCH ×2 (08:03→20:37)
[2020-12-01] MEDS: ACETAMINOPHEN 325 MG TAB PO PRN (08:03)
[2020-12-01] MEDS: CYANOCOBALAMIN 500 MCG TABLET (VITAMIN B-12) PO SCH (08:04)
[2020-12-01] MEDS: POTASSIUM CHLORIDE CRTAB 20 MEQ TABCR PO SCH ×2 (08:04→20:37)
[2020-12-01] MEDS: MUPIROCIN 2% OINT 22 GM TUBE EXT SCH ×2 (08:04→20:42)
[2020-12-01] MEDS: INSULIN HUMAN NPH SC SCH (08:06)
[2020-12-01] MEDS: INSULIN ASPART 100 UNITS/ML 3 ML PEN SC SCH ×4 (08:08→21:00)
[2020-12-01] MEDS ORDERED: bisacodyL 10 MG SUPP PR PRN (10:28)
--- NOTE | 2020-12-01 10:36 | Hospitalist Progress Note ---
Date of Service December 01, 2020 Assessment & Plan (1) Pneumonia due to 2019 novel coronavirus: Plan: SEVERE COVID pneumonia, hospitalized for 13 days, she is about 3 weeks into her illness improvement this week, down to 30L and 50%, close to getting to wall high flow Day #14 of baricitinib. Day #14 of IV dexamethasone 6mg daily, will extend to 20 days total Completed 5-day course of Remdesivir. Procal x 2 both negative during the stay; abx deferred. CRP initially high but improved with steroids/baricitinib. Continue aggressive pulmonary toilet. Nebs q3 WA, helping the most with cough tessalon 200mg TID, mucinex 600mg BID, guaitussin ac q6h prn. DVT proph - lovenox BID. She has had copious diuresis since admission - 10+ liters. continue Lasix PO today Cr and K are stable when last checked, will get labs tomorrow (2) Vomiting: Plan: started 11/29, dark bilious vomit abdomen was distended, hypoactive bowel sounds, no BM for a week checked KUB - heavy stool burden left colon and sigmoid, no obstruction or ileus, needs to move bowels Miralax TID, can try suppository, on Senna had a small BM 11/30, passing a lot of flatus advance to low fiber diet no nausea today (3) Constipation: Plan: senna + miralax small BM morning of 11/30 Miralax increased to TID plan for suppository and sit on bedside commode this morning no obstruction or ileus on KUB 11/29 (4) Acute respiratory failure with hypoxia: Plan: 2nd to #1. BIPAP HS, HFNC during the day, making improvements, down to 30L and 50% FiO2 (5) Type 2 diabetes mellitus with insulin therapy: Plan: Glycemic recs appreciated from the pharmacy team. Cont NPH, lantus, and novolog. HbA1c <6.5% in September. Control adequate, monitor for hypoglycemia and hyperglycemia, no episodes the past 24 hours (6) Hyponatremia: Plan: check BMP tomorrow (7) Morbid obesity: Plan: BMI has improved s/p diuresis BMI high 30s (8) Asthma: Plan: with exacerbation - 2nd to COVID-19 infection. 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 no wheezing this week cough has improved with increasing frequency of nebs to q3h at her request cont steroids, pulmonary toilet. see above. follows w/ Dr Sina Estrada. Dr Estrada was updated last week - he spoke with patient by phone, he gave encouragement. (9) Hypertension: Plan: cont metoprolol. hold aldactone. (10) GERD (gastroesophageal reflux disease): Plan: Protonix IV, change to BID with vomiting H2 susan. (11) Atrial flutter, paroxysmal: Plan: History of. No a.fib/flutter while here. (12) DVT prophylaxis: Plan: Cont lovenox 60mg BID (0.5mg/kg BID). High risk of VTE given severity of COVID illness, famHx of VTE, etc. (13) Leukocytosis: Plan: suspect leukocytosis is 2nd to effects from steroids Plan: wean oxygen as tolerated updated over the phone daily, providing support and encouragement, he is very concerned about his Admission and Anticipated Discharge Date Admission Date: November 18, 2020 Subjective patient is in great spirits this morning, eating/drinking well, no nausea feels like she could have a BM, passing a lot of flatus, willing to try the suppository and get on the bedside commode down to 30L and 45-50% FiO2, improving a little each day which is encouraging vitals stable, no labs, glucose stable cough is decreasing in frequency Review of Systems Review of Systems: All systems reviewed & are unremarkable except as noted in Subjective Constitutional: + fatigue and + weakness; no fever, no chills and no sweats Respiratory: + cough, + dyspnea and + dyspnea on exertion; no sputum production Gastrointestinal: + constipation; no abdominal pain, no nausea, no vomiting and no diarrhea/loose stools Physical Exam Physical Exam: General: well developed, obese female, no distress, comfortable Neck: supple, trachea midline, normal thyroid Lungs: + cough, no wheezing, no crackles, + tachypnea, no accessory muscles Heart: regular S1 and S2, no murmur, peripheral pulses normal, capillary refill normal, no edema Abdomen: soft, distended, NT, normal bowel sounds, tympanic to percussion Extremities: normal in appearance, no cyanosis, no petechiae, strength is 5/5 bilaterally Neuro: awake, cooperative, moves all extremities, no focal motor deficits, CN II-XII intact, sensation in extremities intact, normal speech Skin: warm, dry, no rash, normal turgor Psych: Awake, alert oriented x 3, euthymic affect Results & Data Results & Data ([facility]) Vital Signs (Past 12 Hours) Vital Signs Temp Pulse Pulse Resp BP Pulse Ox 12/01/20 07:19 36.7 C 73 22 129/71 92 12/01/20 05:15 69 17 96 12/01/20 04:31 37.0 C 72 19 121/74 95 12/01/20 02:58 77 18 97 12/01/20 00:17 87 22 91 11/30/20 23:40 85 11/30/20 23:15 37.2 C 78 21 113/73 96 Laboratory Results Laboratory Results - last 24 hr 11/30/20 11/30/20 11/30/20 11:38 16:39 20:03 POC Glucose 148 H 163 H 171 H 12/01/20 08:02 POC Glucose 78 Medications Administered Current Inpatient Medications Acetaminophen (Acetaminophen 325 Mg Tab) 650 mg PO Q4H PRN PRN Reason: Pain or Fever Stop: 12/18/20 16:10 Last Admin: 12/01/20 08:03 Dose: 650 mg Documented by: Albuterol (Albuterol 0.083% Nebu Soln 3 Ml Vial) 2.5 mg NEB Q2H PRN PRN Reason: SOB/wheeze Stop: 12/22/20 23:43 Albuterol (Albut/Ipratrop 3mg/0.5mg Neb 3 Ml Vial) 3 ml NEB Q3HWA [facility] Stop: 12/27/20 11:59 Last Admin: 12/01/20 05:15 Dose: 3 ml Documented by: Aspirin (Aspirin 81 Mg Ectab) 81 mg PO QAM [facility] Stop: 12/19/20 08:59 Last Admin: 12/01/20 08:03 Dose: 81 mg Documented by: Baricitinib (4 Mg Once Daily X14 Days) 4 mg PO Q24H [facility]; Protocol Stop: 12/02/20 17:59 Last Admin: 11/30/20 17:29 Dose: 4 mg Documented by: Benzonatate (Benzonatate 100 Mg Capsule) 200 mg PO TID [facility] Stop: 12/21/20 11:09 Last Admin: 12/01/20 08:03 Dose: 200 mg Documented by: Bisacodyl (Bisacodyl 10 Mg Supp) 10 mg UT DAILY PRN PRN Reason: Constipation Stop: 12/31/20 10:27 Bupropion HCl (Bupropion Sr 100 Mg Tabcr) 200 mg PO BID [facility] Stop: 12/18/20 20:59 Last Admin: 12/01/20 08:03 Dose: 200 mg Documented by: Nystatin 30 ml/ Dexamethasone 3.75 mg/ Diphenhydramine HCl 300 mg/ Sucrose 45 ml/Microcrystalline Cellulose 45 ml/ [employer]IER 1 ea 0 ml PO QID [facility] Stop: 12/21/20 12:59 Last Admin: 12/01/20 08:05 Dose: 5 ml Documented by: Cyanocobalamin (Cyanocobalamin 500 Mcg Tablet (Vitamin B-12)) 2,500 mcg PO QAM [facility] Stop: 12/19/20 08:59 Last Admin: 12/01/20 08:04 Dose: 2,500 mcg Documented by: Dextromethorphan Polymer Complex (Dextromethorphan Polymr Complx 30 Mg/5 Ml Udp) 30 mg PO Q6H PRN PRN Reason: Cough Stop: 12/18/20 19:47 Last Admin: 12/01/20 08:03 Dose: 30 mg Documented by: Dextrose (Dextrose 50% 50 Ml Syringe) 25 - 50 ml IV UD PRN; Protocol PRN Reason: Hypoglycemia Protocol Stop: 12/19/20 07:29 Diclofenac Sodium (Diclofenac Sod 1% Gel 100 Gm Tube) 4 gm EXT Q12 [facility] Stop: 12/19/20 20:59 Last Admin: 12/01/20 08:02 Dose: 4 gm Documented by: Enoxaparin Sodium (Enoxaparin Inj 60 Mg/0.6 Ml Syr) 60 mg SQ BID [facility] Stop: 12/21/20 08:59 Last Admin: 12/01/20 08:01 Dose: 60 mg Documented by: Fluticasone Furoate (Fluticasone Furoate 200mcg 14 Puffs/Inhaler) 1 puffs INH DAILY [facility]; Protocol Stop: 12/21/20 11:59 Last Admin: 12/01/20 08:02 Dose: 1 puffs Documented by: Furosemide (Furosemide 40 Mg Tab) 40 mg PO QAM [facility] Stop: 12/22/20 08:59 Last Admin: 12/01/20 08:03 Dose: 40 mg Documented by: Glucagon (Glucagon For Inj 1 Mg Vial) 1 mg IM UD PRN; Protocol PRN Reason: Hypoglycemia Protocol Stop: 12/19/20 07:29 Glucose (Glucose 40% Gel 15 Gm Tube) 15 - 30 gm PO UD PRN; Protocol PRN Reason: Hypoglycemia Protocol Stop: 12/19/20 07:29 Glucose (Glucose 10 Tabs/Tube) 4 - 8 tabs PO UD PRN; Protocol PRN Reason: Hypoglycemia Protocol Stop: 12/19/20 07:29 Guaifenesin (Guaifenesin 600 Mg Tabcr) 600 mg PO Q12 [facility] Stop: 12/21/20 20:59 Last Admin: 12/01/20 08:03 Dose: 600 mg Documented by: Guaifenesin/Codeine Phosphate (Guaifenesin/Codeine 100mg/10mg 5ml Udc) 5 ml PO Q6H PRN PRN Reason: Cough Stop: 12/21/20 11:08 Last Admin: 11/30/20 12:14 Dose: 5 ml Documented by: Dexamethasone 6 mg/ Syringe 1.5 mls @ 1 mls/min IV QAM [facility]; Protocol Stop: 12/02/20 23:59 Last Admin: 12/01/20 08:01 Dose: 1 mls/min Documented by: Famotidine 20 mg/ Syringe 5 mls @ 2.5 mls/min IV BID [facility] Stop: 12/19/20 09:59 Last Admin: 12/01/20 08:01 Dose: 2.5 mls/min Documented by: Lorazepam (Ativan) 0.25 mg in 0.5 mls @ 0.5 mls/min IV Q6H PRN PRN Reason: anxiety Stop: 12/25/20 15:09 Last Admin: 11/29/20 01:37 Dose: 0.5 mls/min Documented by: Pantoprazole Sodium 40 mg/ (Syringe) 10 mls @ 5 mls/min IV BID [facility] Stop: 12/29/20 20:59 Last Admin: 12/01/20 08:01 Dose: 5 mls/min Documented by: Insulin Aspart (Insulin Aspart 100 Units/Ml 3 Ml Pen) [facility]; Protocol Stop: 12/28/20 11:29 Last Admin: 12/01/20 08:08 Dose: 2 units Documented by: Insulin Human NPH (Insulin Human Nph) 0 units SC DAILY [facility]; Protocol Stop: 12/30/20 08:59 Last Admin: 12/01/20 08:06 Dose: 44 units Documented by: Lidocaine (Lidocaine 5% 1 Patch) 1 patch TD QAM [facility] Stop: 12/19/20 09:59 Last Admin: 12/01/20 07:54 Dose: Not Given Documented by: Lorazepam (Lorazepam 0.5 Mg Tab) 0.5 mg PO Q6H PRN PRN Reason: Anxiety Stop: 12/18/20 19:50 Last Admin: 11/30/20 21:41 Dose: 0.5 mg Documented by: Menthol (Cough Drop (Sugar Free) Anahy 24 Anahy/1 Box) 1 anahy BUCCAL Q1H PRN PRN Reason: Sore Throat Stop: 12/23/20 16:29 Last Admin: 11/29/20 12:52 Dose: 1 anahy Documented by: Metoprolol Tartrate (Metoprolol Tartrate 25 Mg Tab) 75 mg PO BID [facility] Stop: 12/18/20 20:59 Last Admin: 12/01/20 08:03 Dose: 75 mg Documented by: Miscellaneous (Carbohydrates For Hypoglycemia ) 15 - 30 gm PO UD PRN PRN Reason: Hypoglycemia Treatment Stop: 12/19/20 07:29 Miscellaneous (Remove Lidoderm Patch) 1 ea N/A DAILY@2100 [facility] Stop: 12/19/20 20:59 Last Admin: 11/30/20 21:43 Dose: Not Given Documented by: Miscellaneous Information (Pharmacy Glycemic Mgmt Consult) 1 ea N/A UD PRN PRN Reason: Consult Stop: 12/18/20 16:10 Montelukast Sodium (Montelukast Sodium 10 Mg Tablet) 10 mg PO QPM [facility] Stop: 12/18/20 20:59 Last Admin: 11/30/20 21:41 Dose: 10 mg Documented by: Morphine Sulfate (Morphine Sulfate 2 Mg/Ml Carp) 2 mg IV Q4H PRN PRN Reason: Pain Stop: 12/03/20 09:33 Last Admin: 11/27/20 21:28 Dose: 2 mg Documented by: Mupirocin (Mupirocin 2% Oint 22 Gm Tube) 1 appln EXT Q12 [facility] Stop: 12/19/20 20:59 Last Admin: 12/01/20 08:04 Dose: 1 appln Documented by: Ondansetron HCl (Ondansetron Inj 2 Mg/Ml 2 Ml Vial) 4 mg IV Q6H PRN PRN Reason: Nausea Stop: 12/18/20 16:10 Last Admin: 12/01/20 08:01 Dose: 4 mg Documented by: Polyethylene Glycol (Polyethylene (Miralax) 17 Gm Pack) 17 gm PO TID [facility] Stop: 12/29/20 13:59 Last Admin: 12/01/20 08:02 Dose: 17 gm Documented by: Potassium Chloride (Potassium Chloride Crtab 20 Meq Tabcr) 20 meq PO BID [facility] Stop: 12/19/20 20:59 Last Admin: 12/01/20 08:04 Dose: 20 meq Documented by: Sennosides (Senna 8.6 Mg Tab) 17.2 mg PO QAM [facility] Stop: 12/24/20 14:59 Last Admin: 12/01/20 08:03 Dose: 17.2 mg Documented by: Sodium Chloride (Sodium Chloride 0.65% Na Soln 45 Ml ([place])) 1 sprays NA Q1H PRN PRN Reason: dry nose Stop: 12/19/20 16:49 Sodium Chloride (Sodium Chloride 0.65% Na Soln 45 Ml ([place])) 2 sprays NA Q1H PRN PRN Reason: dryness of nose Stop: 12/23/20 16:40 Last Admin: 12/01/20 08:02 Dose: 2 sprays Documented by: PG Care Time/CCT Total # of Minutes Spent Total Time Spent with Patient: Total time spent is greater than 50% in coordination of care (as documented) at patient's floor/unit and/or counseling patient: Coding Level of Care Code 72358 Subseq Hosp Care Lvl 3 Diagnoses Pneumonia due to 2019 novel coronavirus U07.1; J12.82 Vomiting R11.10 Constipation K59.00 Acute respiratory failure with hypoxia J96.01 Type 2 diabetes mellitus with insulin therapy E11.9; Z79.4 Hyponatremia E87.1 Morbid obesity E66.01 Asthma J45.909 Hypertension I10 GERD (gastroesophageal reflux disease) K21.9 Atrial flutter, paroxysmal I48.92 DVT prophylaxis Z29.9 Leukocytosis D72.829
[2020-12-01] MEDS: LORazepam 0.5 MG TAB PO PRN (12:29)
[2020-12-01] MEDS: guaiFENesin/CODEINE 100MG/10MG 5ML UDC PO PRN (12:29)
--- NOTE | 2020-12-01 13:49 | Pharmacy Report ---
Pharmacy Glycemic Short Note 2 - Date of Service December 01, 2020 - Glycemic Short BSG Results (Last 24 hours): 11/30/20 11/30/20 12/01/20 16:39 20:03 08:02 POC Glucose 163 H 171 H 78 12/01/20 11:36 POC Glucose 152 H OUTPATIENT ANTIDIABETIC REGIMEN: * Basaglar 60 units HS * Ozempic 0.5mg SQ monthly * Metformin ER 1000mg PO BID * HbA1c 6.3% on 09/27/20 ASSESSMENT: 12/01 * Dex day * AM fasting 78 mg/dL, will continue to hold additional basal, continue NPH with steroid in the morning * BSGs stable 84-171 mg/dL yesterday. Will continue current parameters 11/30 * Stressors stable - dexamethasone day * AM fasting BSG below goal range - will continue NPH but discontinue Lantus * Post-prandial BSG's mildly elevated x2 yesterday, but good today at lunch. Will keep for now. May increase NPH slightly tomorrow if AM fasting BSG is >100 mg/dL 11/29 * Stressors stable * AM fasting BSG below goal range - will continue NPH but reduce Lantus * Post-prandial BSG's elevated yesterday. Will tighten CHO ratio again 11/28 * Stressors stable * AM fasting BSG in range - no change to basal insulin * PO intake increased yesterday and was associated with increased post-prandial BSG's despite tightening of CHO ratio at lunch. Will tighten further and also tighten correction factor PLAN FOR INPATIENT GLYCEMIC CONTROL: * Hold outpatient Metformin and Ozempic diabetes medications * Basal insulin * Discontinue Lantus * NPH 44-48 units SQ daily with IV Dexamethasone, depending on AM fasting BSG * Bolus insulin * NovoLog per scale ACHS or Q6hrs while NPO * Goal Range: Low 110 mg/dL - High 140 mg/dL * Correction Factor: 15 mg/dL/unit * Nutritional / Prandial insulin per carb ratio of 1 unit per 3.5 grams CHO consumed PLAN FOR DISCHARGE: * A1c 6.3% at goal. Continue home regimen assuming frequent hypoglycemia as an outpatient is not occurring and assuming no contraindications exist at discharge
[2020-12-01] MEDS: 4 mg Once Daily x14 days PO SCH (17:18)
[2020-12-01] MEDS: MONTELUKAST SODIUM 10 MG TABLET PO SCH (20:39)
[2020-12-02] MEDS: ALBUT/IPRATROP 3MG/0.5MG NEB 3 ML VIAL NEB SCH ×6 (05:23→21:08)
[2020-12-02 07:49] LABS: Hematocrit (blood only) 39.9 % (37-47); Hemoglobin 12.9 g/dL (12.0-16.0); Mean Corpuscular Hemoglobin 29.5 pg (25-34); Mean Corpuscular Hgb Conc 32.3 g/dL (32-36); Mean Corpuscular Volume 91.3 fL (80-100); Mean Platelet Volume 10.2 fL (7.4-10.4); Platelet Count 301 K/uL (130-400); RDW Coefficient of Variation 14.4 % (11.5-14.5); RDW Standard Deviation 48.4 fL (36.4-46.3); Red Blood Count 4.37 M/uL (4.2-5.4); White Blood Count 16.06 K/uL (4.8-10.8)
[2020-12-02] MEDS: BENZONATATE 100 MG CAPSULE PO SCH ×3 (07:55→21:35)
[2020-12-02 08:00] LABS: BUN Creatinine Ratio 31.6 (10-20); C Reactive Protein 0.61 mg/dl (0-0.29); Calcium 9.3 mg/dl (8.5-10.1); Creatinine Clr Calc Pharmacy 116.9 ml/min; Est GFR (African American) 111.9 ml/min; Est GFR (Non-African American) 96.6 ml/min; Potassium 3.7 mmol/L (3.5-5.1)
[2020-12-02] MEDS: SENNA 8.6 MG TAB PO SCH (08:02)
[2020-12-02] MEDS: FUROSEMIDE 40 MG TAB PO SCH (08:03)
[2020-12-02] MEDS: METOPROLOL TARTRATE 25 MG TAB PO SCH ×2 (08:03→21:36)
[2020-12-02] MEDS: CYANOCOBALAMIN 500 MCG TABLET (VITAMIN B-12) PO SCH (08:04)
[2020-12-02] MEDS: guaiFENesin 600 MG TABCR PO SCH ×2 (08:05→21:35)
[2020-12-02] MEDS: POTASSIUM CHLORIDE CRTAB 20 MEQ TABCR PO SCH ×2 (08:06→21:42)
[2020-12-02] MEDS: ASPIRIN 81 MG ECTAB PO SCH (08:06)
[2020-12-02] MEDS: buPROPion SR 100 MG TABCR PO SCH ×2 (08:06→21:37)
[2020-12-02] MEDS: POLYETHYLENE (MIRALAX) 17 GM PACK PO SCH ×2 (08:09→21:37)
[2020-12-02] MEDS: PANTOprazole 40 MG in SYRINGE 0 ML IV SCH ×2 (08:10→21:37)
[2020-12-02] MEDS: FLUTICASONE FUROATE 200MCG 14 PUFFS/INHALER INH SCH (08:13)
[2020-12-02] MEDS: ENOXAPARIN INJ 60 MG/0.6 ML SYR SQ SCH ×2 (08:16→21:39)
--- NOTE | 2020-12-02 09:52 | Hospitalist Progress Note ---
Date of Service December 02, 2020 Assessment & Plan (1) Pneumonia due to 2019 novel coronavirus: Plan: SEVERE COVID pneumonia, hospitalized for 14 days, she is about 3 weeks into her illness improvement this week, down to 30L and 40%, close to getting to wall high flow, try for 15L today, defer to respiratory therapy Day #14 of baricitinib, finished Day #15 of IV dexamethasone 6mg daily, will extend to 20 days total, decrease to 4mg IV Completed 5-day course of Remdesivir. Procal x 2 both negative during the stay; abx deferred. CRP initially high but improved with steroids/baricitinib. Continue aggressive pulmonary toilet. Nebs q3 WA, helping the most with cough tessalon 200mg TID, mucinex 600mg BID, guaitussin ac q6h prn. DVT proph - lovenox BID. She has had copious diuresis since admission - 10+ liters. continue Lasix PO today Cr and K are stable today (2) Constipation: Plan: senna + miralax small BM morning of 11/30 larger BM on 12/01, passing flatus Miralax increased to TID, go back to daily to avoid loose stools no obstruction or ileus on KUB 11/29 (3) Acute respiratory failure with hypoxia: Plan: 2nd to #1. BIPAP HS, HFNC during the day, making improvements, down to 30L and 40% FiO2 try for 15L today (4) Type 2 diabetes mellitus with insulin therapy: Plan: Glycemic recs appreciated from the pharmacy team. Cont NPH, lantus, and novolog. HbA1c <6.5% in September. Control adequate, monitor for hypoglycemia and hyperglycemia, no episodes the past 24 hours (5) Vomiting: Plan: started 11/29, dark bilious vomit abdomen was distended, hypoactive bowel sounds, no BM for a week checked KUB - heavy stool burden left colon and sigmoid, no obstruction or ileus, needs to move bowels Miralax TID, can try suppository, on Senna had a small BM 11/30, larger BM 12/01, passing flatus advance to low fiber diet no nausea for three days now (6) Hyponatremia: Plan: Na 135 today (7) Morbid obesity: Plan: BMI has improved s/p diuresis BMI high 30s (8) Asthma: Plan: with exacerbation - 2nd to COVID-19 infection. 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 no wheezing this week cough has improved with increasing frequency of nebs to q3h at her request cont steroids, pulmonary toilet. see above. follows w/ Dr Sina Estrada. Dr Estrada was updated last week - he spoke with patient by phone, he gave encouragement. (9) Hypertension: Plan: cont metoprolol. hold aldactone. (10) GERD (gastroesophageal reflux disease): Plan: Protonix IV, change to BID with vomiting H2 susan. (11) Atrial flutter, paroxysmal: Plan: History of. No a.fib/flutter while here. (12) DVT prophylaxis: Plan: Cont lovenox 60mg BID (0.5mg/kg BID). High risk of VTE given severity of COVID illness, famHx of VTE, etc. (13) Leukocytosis: Plan: suspect leukocytosis is 2nd to effects from steroids WBC is 16k tapering down dexamethasone Plan: wean oxygen as tolerated updated over the phone daily, providing support and encouragement, he is very concerned about his but he is more optimistic, appreciative Admission and Anticipated Discharge Date Admission Date: November 18, 2020 Subjective patient feeling well today, going to try her down on 15L wall high flow, currently at 30L and 40% coughing spells are still a problem she has some pinpoint tenderness over her right LQ, it is where she had hernia surgery a few years ago says she had two surgeries done, Dr. Miller down in [place] she is eating well, no further BM after the movement yesterday, back the Miralax to daily, want to avoid diarrhea + flatus has a sore throat, no thrush on exam, says she was not allowed to drink last night, made throat worse Review of Systems Review of Systems: All systems reviewed & are unremarkable except as noted in Subjective Ear, Nose, Mouth, Throat: + sore throat Respiratory: + cough and + dyspnea on exertion; no dyspnea and no sputum production Gastrointestinal: + abdominal pain (RLQ, over prior hernia repair) Physical Exam Physical Exam: General: well developed, obese female, no distress, comfortable Neck: supple, trachea midline, normal thyroid Throat: mild erythema, no thrush, normal tonsils and uvula Lungs: + cough, no wheezing, no crackles, + tachypnea, no accessory muscles Heart: regular S1 and S2, no murmur, peripheral pulses normal, capillary refill normal, no edema Abdomen: soft, TTP in RLQ, non distended, normal bowel sounds, tympanic to percussion Extremities: normal in appearance, no cyanosis, no petechiae, strength is 5/5 bilaterally Neuro: awake, cooperative, moves all extremities, no focal motor deficits, CN II-XII intact, sensation in extremities intact, normal speech Skin: warm, dry, no rash, normal turgor Psych: Awake, alert oriented x 3, euthymic affect Results & Data Results & Data ([facility]) Vital Signs (Past 12 Hours) Vital Signs Temp Pulse Pulse Pulse Resp BP Pulse Ox 12/02/20 08:47 83 22 94 12/02/20 08:46 83 22 94 12/02/20 07:44 36.9 C 80 18 105/73 95 12/02/20 05:58 36.9 C 80 16 117/68 95 12/02/20 05:24 83 22 91 12/02/20 02:55 71 20 96 12/02/20 00:16 36.4 C L 75 16 123/75 94 12/02/20 00:00 71 12/01/20 22:40 82 30 H 94 Laboratory Results Laboratory Results - last 24 hr 12/01/20 12/01/20 12/01/20 11:36 15:56 20:09 WBC RBC Hgb Hct MCV MCH MCHC RDW Std Deviation RDW Coeff of [place] Plt Count MPV Sodium Potassium Chloride Carbon Dioxide Anion Gap BUN Creatinine Est Cr Clr Drug Dosing Est GFR ( Amer) Est GFR (Non-Af Amer) BUN/Creatinine Ratio Glucose POC Glucose 152 H 166 H 165 H Calcium C-Reactive Protein 12/02/20 12/02/20 12/02/20 06:26 06:26 07:24 WBC 16.06 H RBC 4.37 Hgb 12.9 Hct 39.9 MCV 91.3 MCH 29.5 MCHC 32.3 RDW Std Deviation 48.4 H RDW Coeff of Sheridan 14.4 Plt Count 301 MPV 10.2 Sodium 135 L Potassium 3.7 Chloride 103 Carbon Dioxide 25 Anion Gap 7.0 BUN 22 H Creatinine 0.71 Est Cr Clr Drug Dosing 116.9 Est GFR ( Amer) 111.9 Est GFR (Non-Af Amer) 96.6 BUN/Creatinine Ratio 31.6 H Glucose 100 H POC Glucose 95 Calcium 9.3 C-Reactive Protein 0.61 H Medications Administered Current Inpatient Medications Acetaminophen (Acetaminophen 325 Mg Tab) 650 mg PO Q4H PRN PRN Reason: Pain or Fever Stop: 12/18/20 16:10 Last Admin: 12/01/20 08:03 Dose: 650 mg Documented by: Albuterol (Albuterol 0.083% Nebu Soln 3 Ml Vial) 2.5 mg NEB Q2H PRN PRN Reason: SOB/wheeze Stop: 12/22/20 23:43 Albuterol (Albut/Ipratrop 3mg/0.5mg Neb 3 Ml Vial) 3 ml NEB Q3HWA [facility] Stop: 12/27/20 11:59 Last Admin: 12/02/20 08:45 Dose: 3 ml Documented by: Aspirin (Aspirin 81 Mg Ectab) 81 mg PO QAM [facility] Stop: 12/19/20 08:59 Last Admin: 12/02/20 08:06 Dose: 81 mg Documented by: Baricitinib (4 Mg Once Daily X14 Days) 4 mg PO Q24H [facility]; Protocol Stop: 12/02/20 17:59 Last Admin: 12/01/20 17:18 Dose: 4 mg Documented by: Benzonatate (Benzonatate 100 Mg Capsule) 200 mg PO TID [facility] Stop: 12/21/20 11:09 Last Admin: 12/02/20 07:55 Dose: 200 mg Documented by: Bisacodyl (Bisacodyl 10 Mg Supp) 10 mg TX DAILY PRN PRN Reason: Constipation Stop: 12/31/20 10:27 Last Admin: 12/01/20 12:29 Dose: 10 mg Documented by: Bupropion HCl (Bupropion Sr 100 Mg Tabcr) 200 mg PO BID [facility] Stop: 12/18/20 20:59 Last Admin: 12/02/20 08:06 Dose: 200 mg Documented by: Nystatin 30 ml/ Dexamethasone 3.75 mg/ Diphenhydramine HCl 300 mg/ Sucrose 45 ml/Microcrystalline Cellulose 45 ml/ [employer]CODE [employer]ENTIFIER 1 ea 0 ml PO QID [facility] Stop: 12/21/20 12:59 Last Admin: 12/01/20 20:45 Dose: 45 ml Documented by: Cyanocobalamin (Cyanocobalamin 500 Mcg Tablet (Vitamin B-12)) 2,500 mcg PO QAM [facility] Stop: 12/19/20 08:59 Last Admin: 12/02/20 08:04 Dose: 2,500 mcg Documented by: Dextromethorphan Polymer Complex (Dextromethorphan Polymr Complx 30 Mg/5 Ml Udp) 30 mg PO Q6H PRN PRN Reason: Cough Stop: 12/18/20 19:47 Last Admin: 12/01/20 17:19 Dose: 30 mg Documented by: Dextrose (Dextrose 50% 50 Ml Syringe) 25 - 50 ml IV UD PRN; Protocol PRN Reason: Hypoglycemia Protocol Stop: 12/19/20 07:29 Diclofenac Sodium (Diclofenac Sod 1% Gel 100 Gm Tube) 4 gm EXT Q12 [facility] Stop: 12/19/20 20:59 Last Admin: 12/01/20 20:41 Dose: 4 gm Documented by: Enoxaparin Sodium (Enoxaparin Inj 60 Mg/0.6 Ml Syr) 60 mg SQ BID [facility] Stop: 12/21/20 08:59 Last Admin: 12/02/20 08:16 Dose: 60 mg Documented by: Fluticasone Furoate (Fluticasone Furoate 200mcg 14 Puffs/Inhaler) 1 puffs INH DAILY [facility]; Protocol Stop: 12/21/20 11:59 Last Admin: 12/02/20 08:13 Dose: 1 puffs Documented by: Furosemide (Furosemide 40 Mg Tab) 40 mg PO QAM [facility] Stop: 12/22/20 08:59 Last Admin: 12/02/20 08:03 Dose: 40 mg Documented by: Glucagon (Glucagon For Inj 1 Mg Vial) 1 mg IM UD PRN; Protocol PRN Reason: Hypoglycemia Protocol Stop: 12/19/20 07:29 Glucose (Glucose 40% Gel 15 Gm Tube) 15 - 30 gm PO UD PRN; Protocol PRN Reason: Hypoglycemia Protocol Stop: 12/19/20 07:29 Glucose (Glucose 10 Tabs/Tube) 4 - 8 tabs PO UD PRN; Protocol PRN Reason: Hypoglycemia Protocol Stop: 12/19/20 07:29 Guaifenesin (Guaifenesin 600 Mg Tabcr) 600 mg PO Q12 [facility] Stop: 12/21/20 20:59 Last Admin: 12/02/20 08:05 Dose: 600 mg Documented by: Guaifenesin/Codeine Phosphate (Guaifenesin/Codeine 100mg/10mg 5ml Udc) 5 ml PO Q6H PRN PRN Reason: Cough Stop: 12/21/20 11:08 Last Admin: 12/01/20 12:29 Dose: 5 ml Documented by: Dexamethasone 6 mg/ Syringe 1.5 mls @ 1 mls/min IV QAM [facility]; Protocol Stop: 12/02/20 23:59 Last Admin: 12/01/20 08:01 Dose: 1 mls/min Documented by: Famotidine 20 mg/ Syringe 5 mls @ 2.5 mls/min IV BID [facility] Stop: 12/19/20 09:59 Last Admin: 12/01/20 20:45 Dose: 2.5 mls/min Documented by: Lorazepam (Ativan) 0.25 mg in 0.5 mls @ 0.5 mls/min IV Q6H PRN PRN Reason: anxiety Stop: 12/25/20 15:09 Last Admin: 11/29/20 01:37 Dose: 0.5 mls/min Documented by: Pantoprazole Sodium 40 mg/ (Syringe) 10 mls @ 5 mls/min IV BID [facility] Stop: 12/29/20 20:59 Last Admin: 12/02/20 08:10 Dose: 5 mls/min Documented by: Insulin Aspart (Insulin Aspart 100 Units/Ml 3 Ml Pen) 0 units SC ACHS [facility]; Protocol Stop: 12/28/20 11:29 Last Admin: 12/01/20 21:00 Dose: 2 units Documented by: Insulin Human NPH (Insulin Human Nph) 0 units SC DAILY [facility]; Protocol Stop: 12/02/20 23:59 Last Admin: 12/01/20 08:06 Dose: 44 units Documented by: Lidocaine (Lidocaine 5% 1 Patch) 1 patch TD QAM [facility] Stop: 12/19/20 09:59 Last Admin: 12/01/20 07:54 Dose: Not Given Documented by: Lorazepam (Lorazepam 0.5 Mg Tab) 0.5 mg PO Q6H PRN PRN Reason: Anxiety Stop: 12/18/20 19:50 Last Admin: 12/01/20 12:29 Dose: 0.5 mg Documented by: Menthol (Cough Drop (Sugar Free) Anahy 24 Anahy/1 Box) 1 anahy BUCCAL Q1H PRN PRN Reason: Sore Throat Stop: 12/23/20 16:29 Last Admin: 11/29/20 12:52 Dose: 1 anahy Documented by: Metoprolol Tartrate (Metoprolol Tartrate 25 Mg Tab) 75 mg PO BID [facility] Stop: 12/18/20 20:59 Last Admin: 12/02/20 08:03 Dose: 75 mg Documented by: Miscellaneous (Carbohydrates For Hypoglycemia ) 15 - 30 gm PO UD PRN PRN Reason: Hypoglycemia Treatment Stop: 12/19/20 07:29 Miscellaneous (Remove Lidoderm Patch) 1 ea N/A DAILY@2100 [facility] Stop: 12/19/20 20:59 Last Admin: 12/01/20 20:42 Dose: 1 ea Documented by: Miscellaneous Information (Pharmacy Glycemic Mgmt Consult) 1 ea N/A UD PRN PRN Reason: Consult Stop: 12/18/20 16:10 Montelukast Sodium (Montelukast Sodium 10 Mg Tablet) 10 mg PO QPM [facility] Stop: 12/18/20 20:59 Last Admin: 12/01/20 20:39 Dose: 10 mg Documented by: Morphine Sulfate (Morphine Sulfate 2 Mg/Ml Carp) 2 mg IV Q4H PRN PRN Reason: Pain Stop: 12/03/20 09:33 Last Admin: 11/27/20 21:28 Dose: 2 mg Documented by: Mupirocin (Mupirocin 2% Oint 22 Gm Tube) 1 appln EXT Q12 [facility] Stop: 12/19/20 20:59 Last Admin: 12/01/20 20:42 Dose: 1 appln Documented by: Ondansetron HCl (Ondansetron Inj 2 Mg/Ml 2 Ml Vial) 4 mg IV Q6H PRN PRN Reason: Nausea Stop: 12/18/20 16:10 Last Admin: 12/01/20 08:01 Dose: 4 mg Documented by: Polyethylene Glycol (Polyethylene (Miralax) 17 Gm Pack) 17 gm PO DAILY [facility] Stop: 01/02/21 08:59 Potassium Chloride (Potassium Chloride Crtab 20 Meq Tabcr) 20 meq PO BID [facility] Stop: 12/19/20 20:59 Last Admin: 12/02/20 08:06 Dose: 20 meq Documented by: Sennosides (Senna 8.6 Mg Tab) 17.2 mg PO QAM [facility] Stop: 12/24/20 14:59 Last Admin: 12/02/20 08:02 Dose: 17.2 mg Documented by: Sodium Chloride (Sodium Chloride 0.65% Na Soln 45 Ml ([place])) 1 sprays NA Q1H PRN PRN Reason: dry nose Stop: 12/19/20 16:49 Sodium Chloride (Sodium Chloride 0.65% Na Soln 45 Ml ([place])) 2 sprays NA Q1H PRN PRN Reason: dryness of nose Stop: 12/23/20 16:40 Last Admin: 12/01/20 08:02 Dose: 2 sprays Documented by: PG Care Time/CCT Total # of Minutes Spent Total Time Spent with Patient: Total time spent is greater than 50% in coordination of care (as documented) at patient's floor/unit and/or counseling patient: Coding Level of Care Code 01660 Subseq Hosp Care Lvl 3 Diagnoses Pneumonia due to 2019 novel coronavirus U07.1; J12.82 Vomiting R11.10 Constipation K59.00 Acute respiratory failure with hypoxia J96.01 Type 2 diabetes mellitus with insulin therapy E11.9; Z79.4 Hyponatremia E87.1 Morbid obesity E66.01 Asthma J45.909 Hypertension I10 GERD (gastroesophageal reflux disease) K21.9 Atrial flutter, paroxysmal I48.92 DVT prophylaxis Z29.9 Leukocytosis D72.829
[2020-12-02] MEDS: INSULIN ASPART 100 UNITS/ML 3 ML PEN SC SCH ×4 (10:00→21:00)
[2020-12-02] MEDS: DEXTROMETHORPHAN POLYMR COMPLX 30 MG/5 ML UDP PO PRN ×2 (10:02→21:49)
[2020-12-02] MEDS: DICLOFENAC SOD 1% GEL 100 GM TUBE EXT SCH ×2 (10:15→21:38)
[2020-12-02] MEDS: LIDOCAINE 5% 1 PATCH TD SCH (10:15)
[2020-12-02] MEDS: INSULIN HUMAN NPH SC SCH (10:27)
[2020-12-02] MEDS: MUPIROCIN 2% OINT 22 GM TUBE EXT SCH ×2 (10:31→21:40)
[2020-12-02] MEDS: FAMOTIDINE 20 MG in SYRINGE 3 ML IV SCH ×2 (10:33→21:40)
[2020-12-02] MEDS: dexAMETHasone 6 MG in SYRINGE 0 ML IV SCH (10:36)
[2020-12-02] MEDS ORDERED: KETOROLAC TROMETHAMINE 15 MG/ML VIAL IV ONE (20:53)
[2020-12-02] MEDS ORDERED: MoRPHine SULFATE 2 MG/ML CARP IV PRN (20:54)
[2020-12-02] MEDS ORDERED: MAGNESIUM CITRATE 296 ML/BTL PO PRN (21:02)
[2020-12-02] MEDS: MONTELUKAST SODIUM 10 MG TABLET PO SCH (21:43)
[2020-12-03] MEDS: ALBUT/IPRATROP 3MG/0.5MG NEB 3 ML VIAL NEB SCH ×7 (06:04→21:25)
[2020-12-03] MEDS: LIDOCAINE 5% 1 PATCH TD SCH ×2 (08:30→09:47)
[2020-12-03] MEDS ORDERED: POLYETHYLENE (MIRALAX) 17 GM PACK PO SCH (09:00)
[2020-12-03] MEDS: dexAMETHasone 4 MG in SYRINGE 0 ML IV SCH (09:18)
[2020-12-03] MEDS: PANTOprazole 40 MG in SYRINGE 0 ML IV SCH ×2 (09:19→20:41)
[2020-12-03] MEDS: FAMOTIDINE 20 MG in SYRINGE 3 ML IV SCH ×2 (09:21→20:40)
[2020-12-03] MEDS: LORazepam 0.5 MG TAB PO PRN ×2 (09:26→21:17)
[2020-12-03] MEDS: ASPIRIN 81 MG ECTAB PO SCH (09:28)
[2020-12-03] MEDS: SENNA 8.6 MG TAB PO SCH (09:28)
[2020-12-03] MEDS: FUROSEMIDE 40 MG TAB PO SCH (09:28)
[2020-12-03] MEDS: CYANOCOBALAMIN 500 MCG TABLET (VITAMIN B-12) PO SCH (09:29)
[2020-12-03] MEDS: BENZONATATE 100 MG CAPSULE PO SCH ×3 (09:31→20:37)
[2020-12-03] MEDS: buPROPion SR 100 MG TABCR PO SCH ×2 (09:31→20:39)
[2020-12-03] MEDS: POTASSIUM CHLORIDE CRTAB 20 MEQ TABCR PO SCH ×2 (09:32→20:41)
--- NOTE | 2020-12-03 09:36 | Hospitalist Progress Note ---
Date of Service December 03, 2020 Assessment & Plan (1) Pneumonia due to 2019 novel coronavirus: Plan: SEVERE COVID pneumonia, hospitalized for 15 days, she is about 3 weeks into her illness major improvement this week, down to 5L this morning, was on Vapotherm up until yesterday! more dyspnea this morning, lungs clear, feels fatigue, anxious, she was up in chair yesterday for a few hours, feels like she over did it making big strides this week, likely will need rehab, would be ready by end of the week check CXR this morning Day #14 of baricitinib, finished Day #16 of IV dexamethasone, decreased to 4mg IV on 12/03, would taper slowly, very sensitive Completed 5-day course of Remdesivir. Procal x 2 both negative during the stay; abx deferred. CRP initially high but improved with steroids/baricitinib. Continue aggressive pulmonary toilet. Nebs q3 WA, helping the most with cough tessalon 200mg TID, mucinex 600mg BID, guaitussin ac q6h prn. DVT proph - lovenox BID. (2) Constipation: Plan: senna + miralax small BM morning of 11/30 larger BM on 12/01, passing flatus small BM last night, will try suppository or enema today Miralax BID no obstruction or ileus on KUB 11/29 (3) Acute respiratory failure with hypoxia: Plan: 2nd to #1. BIPAP HS weaned down to 5L wall high flow today (12/03) this is the first day she has been on less than Vapotherm her whole hospital stay feeling more dyspneic, likely combination of fatigue, anxiety, will check CXR this morning (4) Type 2 diabetes mellitus with insulin therapy: Plan: Glycemic recs appreciated from the pharmacy team. Cont NPH, lantus, and novolog. HbA1c <6.5% in September. Control adequate, monitor for hypoglycemia and hyperglycemia, no episodes the past 24 hours (5) Vomiting: Plan: started 11/29, dark bilious vomit abdomen was distended, hypoactive bowel sounds, no BM for a week checked KUB - heavy stool burden left colon and sigmoid, no obstruction or ileus, needs to move bowels Miralax TID, can try suppository, on Senna had a small BM 10/14, larger BM 10/15, passing flatus advance to low fiber diet no nausea for four days now (6) Hyponatremia: Plan: Na 135 yesterday (7) Morbid obesity: Plan: BMI has improved s/p diuresis BMI high 30s (8) Asthma: Plan: with exacerbation - 2nd to COVID-19 infection. 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 no wheezing at all this week cough has improved with increasing frequency of nebs to q3h at her request cont steroids, pulmonary toilet. see above. follows w/ Dr Sina Estrada. Dr Estrada called patient the prior week for assurance (9) Hypertension: Plan: cont metoprolol. hold aldactone. (10) GERD (gastroesophageal reflux disease): Plan: Protonix IV, change to BID with vomiting H2 susan. (11) Atrial flutter, paroxysmal: Plan: History of. No a.fib/flutter while here. (12) DVT prophylaxis: Plan: Cont lovenox 60mg BID (0.5mg/kg BID). High risk of VTE given severity of COVID illness, famHx of VTE, etc. would discharge on Xarelto 10mg daily x 30 days, high risk of VTE even after discharge (13) Leukocytosis: Plan: due to steroids, coming down Plan: wean oxygen as tolerated work towards rehab at end of the week, PT/OT consulted please call Reyes daily for update I contacted infection control, might be suitable to come off airborne isolation, then could potentially visit Admission and Anticipated Discharge Date Admission Date: November 18, 2020 Subjective patient feeling more short of breath this morning, got Duoneb which helped a little she is frustrated, feels like we are tapering oxygen too quickly, she is down to 5L which is huge improvement from Vapotherm she sat up in the chair yesterday for a while, she thinks she over did it I explained that it is common to feel exhausted the day after you move around, she has been in bed for two weeks had a very small BM last night, + flatus, no nausea she admits to feeling anxious about the breathing, will give a small dose of Ativan called her to provide an update will get a CXR to look at lungs, assured her that things are improving, likely just fatigued, get rest will check on her later today Review of Systems Review of Systems: All systems reviewed & are unremarkable except as noted in Subjective Constitutional: + fatigue and + weakness; no fever Respiratory: + cough, + dyspnea and + dyspnea on exertion Gastrointestinal: + constipation Psychiatric: + anxiety Physical Exam Physical Exam: General: well developed, obese female, no distress, comfortable Neck: supple, trachea midline, normal thyroid Throat: mild erythema, no thrush, normal tonsils and uvula Lungs: + cough, no wheezing, no crackles, + tachypnea, no accessory muscles Heart: regular S1 and S2, no murmur, peripheral pulses normal, capillary refill normal, no edema Abdomen: soft, TTP in RLQ, non distended, normal bowel sounds, tympanic to percussion Extremities: normal in appearance, no cyanosis, no petechiae, strength is 5/5 bilaterally Neuro: awake, cooperative, moves all extremities, no focal motor deficits, CN II-XII intact, sensation in extremities intact, normal speech Skin: warm, dry, no rash, normal turgor Psych: Awake, alert oriented x 3, anxious affect Results & Data Results & Data ([facility]) Vital Signs (Past 12 Hours) Vital Signs Temp Pulse Pulse Resp BP Pulse Ox 12/03/20 08:41 94 H 22 90 12/03/20 07:20 81 12/03/20 06:04 79 20 99 12/03/20 04:32 36.8 C 80 20 118/80 98 12/03/20 00:00 86 12/02/20 22:42 37.1 C 93 H 22 144/88 H 96 Laboratory Results Laboratory Results - last 24 hr 12/02/20 12/02/20 12/02/20 11:22 16:21 20:32 POC Glucose 144 H 211 H 181 H 12/03/20 07:58 POC Glucose 104 H Medications Administered Current Inpatient Medications Acetaminophen (Acetaminophen 325 Mg Tab) 650 mg PO Q4H PRN PRN Reason: Pain or Fever Stop: 12/18/20 16:10 Last Admin: 12/01/20 08:03 Dose: 650 mg Documented by: Albuterol (Albuterol 0.083% Nebu Soln 3 Ml Vial) 2.5 mg NEB Q2H PRN PRN Reason: SOB/wheeze Stop: 12/22/20 23:43 Albuterol (Albut/Ipratrop 3mg/0.5mg Neb 3 Ml Vial) 3 ml NEB Q3HWA [facility] Stop: 12/27/20 11:59 Last Admin: 12/03/20 08:41 Dose: 3 ml Documented by: Aspirin (Aspirin 81 Mg Ectab) 81 mg PO QAM [facility] Stop: 12/19/20 08:59 Last Admin: 12/02/20 08:06 Dose: 81 mg Documented by: Benzonatate (Benzonatate 100 Mg Capsule) 200 mg PO TID [facility] Stop: 12/21/20 11:09 Last Admin: 12/02/20 21:35 Dose: 200 mg Documented by: Bisacodyl (Bisacodyl 10 Mg Supp) 10 mg SC DAILY PRN PRN Reason: Constipation Stop: 12/31/20 10:27 Last Admin: 12/01/20 12:29 Dose: 10 mg Documented by: Bupropion HCl (Bupropion Sr 100 Mg Tabcr) 200 mg PO BID [facility] Stop: 12/18/20 20:59 Last Admin: 12/02/20 21:37 Dose: 200 mg Documented by: Nystatin 30 ml/ Dexamethasone 3.75 mg/ Diphenhydramine HCl 300 mg/ Sucrose 45 ml/Microcrystalline Cellulose 45 ml/ BARCODE IDENTIFIER 1 ea 0 ml PO QID [facility] Stop: 12/21/20 12:59 Last Admin: 12/02/20 21:41 Dose: 45 ml Documented by: Cyanocobalamin (Cyanocobalamin 500 Mcg Tablet (Vitamin B-12)) 2,500 mcg PO QAM [facility] Stop: 12/19/20 08:59 Last Admin: 12/02/20 08:04 Dose: 2,500 mcg Documented by: Dextromethorphan Polymer Complex (Dextromethorphan Polymr Complx 30 Mg/5 Ml Udp) 30 mg PO Q6H PRN PRN Reason: Cough Stop: 12/18/20 19:47 Last Admin: 12/02/20 21:49 Dose: 30 mg Documented by: Dextrose (Dextrose 50% 50 Ml Syringe) 25 - 50 ml IV UD PRN; Protocol PRN Reason: Hypoglycemia Protocol Stop: 12/19/20 07:29 Diclofenac Sodium (Diclofenac Sod 1% Gel 100 Gm Tube) 4 gm EXT Q12 [facility] Stop: 12/19/20 20:59 Last Admin: 12/02/20 21:38 Dose: 4 gm Documented by: Enoxaparin Sodium (Enoxaparin Inj 60 Mg/0.6 Ml Syr) 60 mg SQ BID GIANNA Stop: 12/21/20 08:59 Last Admin: 12/02/20 21:39 Dose: 60 mg Documented by: Fluticasone Furoate (Fluticasone Furoate 200mcg 14 Puffs/Inhaler) 1 puffs INH DAILY GIANNA; Protocol Stop: 12/21/20 11:59 Last Admin: 12/02/20 08:13 Dose: 1 puffs Documented by: Furosemide (Furosemide 40 Mg Tab) 40 mg PO QAM GIANNA Stop: 12/22/20 08:59 Last Admin: 12/02/20 08:03 Dose: 40 mg Documented by: Glucagon (Glucagon For Inj 1 Mg Vial) 1 mg IM UD PRN; Protocol PRN Reason: Hypoglycemia Protocol Stop: 12/19/20 07:29 Glucose (Glucose 40% Gel 15 Gm Tube) 15 - 30 gm PO UD PRN; Protocol PRN Reason: Hypoglycemia Protocol Stop: 12/19/20 07:29 Glucose (Glucose 10 Tabs/Tube) 4 - 8 tabs PO UD PRN; Protocol PRN Reason: Hypoglycemia Protocol Stop: 12/19/20 07:29 Guaifenesin (Guaifenesin 600 Mg Tabcr) 600 mg PO Q12 GIANNA Stop: 12/21/20 20:59 Last Admin: 12/02/20 21:35 Dose: 600 mg Documented by: Guaifenesin/Codeine Phosphate (Guaifenesin/Codeine 100mg/10mg 5ml Udc) 5 ml PO Q6H PRN PRN Reason: Cough Stop: 12/21/20 11:08 Last Admin: 12/01/20 12:29 Dose: 5 ml Documented by: Famotidine 20 mg/ Syringe 5 mls @ 2.5 mls/min IV BID GIANNA Stop: 12/19/20 09:59 Last Admin: 12/03/20 09:21 Dose: 2.5 mls/min Documented by: Lorazepam (Ativan) 0.25 mg in 0.5 mls @ 0.5 mls/min IV Q6H PRN PRN Reason: anxiety Stop: 12/25/20 15:09 Last Admin: 11/29/20 01:37 Dose: 0.5 mls/min Documented by: Pantoprazole Sodium 40 mg/ (Syringe) 10 mls @ 5 mls/min IV BID [facility] Stop: 12/29/20 20:59 Last Admin: 12/03/20 09:19 Dose: 5 mls/min Documented by: Dexamethasone 4 mg/ Syringe 1 mls @ 1 mls/min IV QAM [facility]; Protocol Stop: 01/02/21 08:59 Last Admin: 12/03/20 09:18 Dose: 1 mls/min Documented by: Insulin Aspart (Insulin Aspart 100 Units/Ml 3 Ml Pen) 0 units SC ACHS [facility]; Protocol Stop: 12/28/20 11:29 Last Admin: 12/02/20 21:00 Dose: 3 units Documented by: Insulin Human NPH (Insulin Human Nph) 44 units SC DAILY [facility]; Protocol Stop: 01/02/21 08:59 Lidocaine (Lidocaine 5% 1 Patch) 1 patch TD [facility] Stop: 12/19/20 09:59 Last Admin: 12/02/20 10:15 Dose: 1 patch Documented by: Lorazepam (Lorazepam 0.5 Mg Tab) 0.5 mg PO Q6H PRN PRN Reason: Anxiety Stop: 12/18/20 19:50 Last Admin: 12/01/20 12:29 Dose: 0.5 mg Documented by: Magnesium Citrate (Magnesium Citrate 296 Ml/Btl) 50 ml PO DAILY PRN PRN Reason: No BM w/in 48 hours Stop: 01/01/21 21:01 Menthol (Cough Drop (Sugar Free) Anahy 24 Anahy/1 Box) 1 anahy BUCCAL Q1H PRN PRN Reason: Sore Throat Stop: 12/23/20 16:29 Last Admin: 11/29/20 12:52 Dose: 1 anahy Documented by: Metoprolol Tartrate (Metoprolol Tartrate 25 Mg Tab) 75 mg PO BID [facility] Stop: 12/18/20 20:59 Last Admin: 12/02/20 21:36 Dose: 75 mg Documented by: Miscellaneous (Carbohydrates For Hypoglycemia ) 15 - 30 gm PO UD PRN PRN Reason: Hypoglycemia Treatment Stop: 12/19/20 07:29 Miscellaneous (Remove Lidoderm Patch) 1 ea N/A DAILY@2100 [facility] Stop: 12/19/20 20:59 Last Admin: 12/02/20 21:41 Dose: 1 ea Documented by: Miscellaneous Information (Pharmacy Glycemic Mgmt Consult) 1 ea N/A UD PRN PRN Reason: Consult Stop: 12/18/20 16:10 Montelukast Sodium (Montelukast Sodium 10 Mg Tablet) 10 mg PO QPM [facility] Stop: 12/18/20 20:59 Last Admin: 12/02/20 21:43 Dose: 10 mg Documented by: Morphine Sulfate (Morphine Sulfate 2 Mg/Ml Carp) 2 mg IV Q4H PRN PRN Reason: severe pain Stop: 12/03/20 09:33 Mupirocin (Mupirocin 2% Oint 22 Gm Tube) 1 appln EXT Q12 GIANNA Stop: 12/19/20 20:59 Last Admin: 12/02/20 21:40 Dose: 1 appln Documented by: Ondansetron HCl (Ondansetron Inj 2 Mg/Ml 2 Ml Vial) 4 mg IV Q6H PRN PRN Reason: Nausea Stop: 12/18/20 16:10 Last Admin: 12/01/20 08:01 Dose: 4 mg Documented by: Polyethylene Glycol (Polyethylene (Miralax) 17 Gm Pack) 17 gm PO BID [facility] Stop: 01/01/21 20:59 Last Admin: 12/02/20 21:37 Dose: 17 gm Documented by: Potassium Chloride (Potassium Chloride Crtab 20 Meq Tabcr) 20 meq PO BID [facility] Stop: 12/19/20 20:59 Last Admin: 12/02/20 21:42 Dose: 20 meq Documented by: Sennosides (Senna 8.6 Mg Tab) 17.2 mg PO QAM [facility] Stop: 12/24/20 14:59 Last Admin: 12/02/20 08:02 Dose: 17.2 mg Documented by: Sodium Chloride (Sodium Chloride 0.65% Na Soln 45 Ml ([place])) 1 sprays NA Q1H PRN PRN Reason: dry nose Stop: 12/19/20 16:49 Sodium Chloride (Sodium Chloride 0.65% Na Soln 45 Ml ([place])) 2 sprays NA Q1H PRN PRN Reason: dryness of nose Stop: 12/23/20 16:40 Last Admin: 12/01/20 08:02 Dose: 2 sprays Documented by: PG Care Time/CCT Total # of Minutes Spent Total Time Spent with Patient: Total time spent is greater than 50% in coordination of care (as documented) at patient's floor/unit and/or counseling patient: Coding Level of Care Code 86794 Subseq Hosp Care Lvl 3 Diagnoses Pneumonia due to 2019 novel coronavirus U07.1; J12.82 Constipation K59.00 Acute respiratory failure with hypoxia J96.01 Type 2 diabetes mellitus with insulin therapy E11.9; Z79.4 Vomiting R11.10 Hyponatremia E87.1 Morbid obesity E66.01 Asthma J45.909 Hypertension I10 GERD (gastroesophageal reflux disease) K21.9 Atrial flutter, paroxysmal I48.92 DVT prophylaxis Z29.9 Leukocytosis D72.829
[2020-12-03] MEDS: POLYETHYLENE (MIRALAX) 17 GM PACK PO SCH ×2 (09:38→20:38)
[2020-12-03] MEDS: METOPROLOL TARTRATE 25 MG TAB PO SCH ×2 (09:39→20:40)
[2020-12-03] MEDS: guaiFENesin 600 MG TABCR PO SCH ×2 (09:39→20:38)
[2020-12-03] MEDS: INSULIN ASPART 100 UNITS/ML 3 ML PEN SC SCH ×4 (09:42→21:53)
[2020-12-03] MEDS: INSULIN HUMAN NPH SC SCH (09:43)
[2020-12-03] MEDS: DEXTROMETHORPHAN POLYMR COMPLX 30 MG/5 ML UDP PO PRN (09:46)
[2020-12-03] MEDS: FLUTICASONE FUROATE 200MCG 14 PUFFS/INHALER INH SCH (09:47)
[2020-12-03] MEDS: DICLOFENAC SOD 1% GEL 100 GM TUBE EXT SCH ×2 (09:47→20:41)
[2020-12-03] MEDS: ENOXAPARIN INJ 60 MG/0.6 ML SYR SQ SCH ×2 (09:47→20:40)
[2020-12-03] MEDS: MUPIROCIN 2% OINT 22 GM TUBE EXT SCH ×2 (09:48→20:41)
--- NOTE | 2020-12-03 10:18 | XRay Report ---
XR chest 1V portable CLINICAL HISTORY: dyspnea COMPARISON STUDY: Chest radiograph November 29, 2020. FINDINGS: Lung volumes are mildly diminished. This is unchanged. There is no pneumothorax. Cardiomedi astinal silhouette is stable. Extensive bilateral airspace opacities are similar to prior exam. IMPRESSION: No significant change in extensive bilateral airspace opacities. This favors pneumonia h owever pulmonary edema could appear similar. ACT 112: Negative or not required by law. Electronically signed by: Edson Alan M.D. 12/03/2020 10:17 AM
--- NOTE | 2020-12-03 10:59 | Pharmacy Report ---
Pharmacy Glycemic Short Note 2 - Date of Service December 03, 2020 - Glycemic Short BSG Results (Last 24 hours): 12/02/20 12/02/20 12/02/20 11:22 16:21 20:32 POC Glucose 144 H 211 H 181 H 12/03/20 07:58 POC Glucose 104 H OUTPATIENT ANTIDIABETIC REGIMEN: * Basaglar 60 units HS * Ozempic 0.5mg SQ monthly * Metformin ER 1000mg PO BID * HbA1c 6.3% on 09/27/20 ASSESSMENT: 12/03 * Patient's BSGs yesterday were 72-357-105-181 mg/dL. * Patient received 100 units of insulin (44 units of basal and 56 units of bolus). * Fasting BSG today was 104 mg/dL. * Continue to hold Lantus. * Dexamethasone continued today with a decreased dose of 4 mg. Since NPH was not sufficient with dexamethasone 6 mg, this dose will probably be sufficient with less dexamethasone so continue with NPH 44 units. * Continue aggressive Novolog due to hyperglycemia with steroids. 12/01 * Dex day * AM fasting 78 mg/dL, will continue to hold additional basal, continue NPH with steroid in the morning * BSGs stable 84-171 mg/dL yesterday. Will continue current parameters 11/30 * Stressors stable - dexamethasone day * AM fasting BSG below goal range - will continue NPH but discontinue Lantus * Post-prandial BSG's mildly elevated x2 yesterday, but good today at lunch. Will keep for now. May increase NPH slightly tomorrow if AM fasting BSG is >100 mg/dL 11/29 * Stressors stable * AM fasting BSG below goal range - will continue NPH but reduce Lantus * Post-prandial BSG's elevated yesterday. Will tighten CHO ratio again 11/28 * Stressors stable * AM fasting BSG in range - no change to basal insulin * PO intake increased yesterday and was associated with increased post-prandial BSG's despite tightening of CHO ratio at lunch. Will tighten further and also tighten correction factor PLAN FOR INPATIENT GLYCEMIC CONTROL: * Hold outpatient Metformin and Ozempic diabetes medications * Basal insulin * NPH 44 units SQ daily with IV Dexamethasone * Bolus insulin * NovoLog per scale ACHS or Q6hrs while NPO * Goal Range: Low 110 mg/dL - High 140 mg/dL * Correction Factor: 15 mg/dL/unit * Nutritional / Prandial insulin per carb ratio of 1 unit per 3.5 grams CHO consumed PLAN FOR DISCHARGE: * A1c 6.3% at goal. Continue home regimen assuming frequent hypoglycemia as an outpatient is not occurring and assuming no contraindications exist at discharge
[2020-12-03] MEDS: guaiFENesin/CODEINE 100MG/10MG 5ML UDC PO PRN (11:08)
[2020-12-03] MEDS: MONTELUKAST SODIUM 10 MG TABLET PO SCH (20:39)
[2020-12-04] MEDS: ALBUT/IPRATROP 3MG/0.5MG NEB 3 ML VIAL NEB SCH ×6 (05:42→22:05)
--- NOTE | 2020-12-04 07:20 | Hospitalist Progress Note ---
Date of Service December 04, 2020 Assessment & Plan (1) Pneumonia due to 2019 novel coronavirus: Plan: SEVERE COVID pneumonia, hospitalized since 11/18/20, she is about 3 weeks into her illness improving oxygen requirements likely will need rehab, extreme exertional fatigue Day #14 of baricitinib, finished Day #16 of IV dexamethasone, decreased to 4mg IV on 12/03, would taper slowly, very sensitive Completed 5-day course of Remdesivir. Procal x 2 both negative during the stay; abx deferred. CRP initially high but improved with steroids/baricitinib. Continue aggressive pulmonary toilet. Nebs q3 WA, helping the most with cough tessalon 200mg TID, mucinex 600mg BID, guaitussin ac q6h prn. DVT proph - lovenox BID. (2) Right lower quadrant abdominal pain: Plan: Patient is reproducible pain along previous linear hernia repair scars in her lower abdomen. I do not feel any recurrence of her hernia. The pain appeared to be superficial or in her body while however she does site history of kidney stones. Subsequently noncontrast CT scan to be undertaken parenteral opiates will be used for pain control (3) Constipation: Plan: senna + miralax no obstruction or ileus on KUB 11/29 Resolved constipation (4) Acute respiratory failure with hypoxia: Plan: Resolving daily BIPAP HS weaning to lower levels of oxygen (5) Type 2 diabetes mellitus with insulin therapy: Plan: Glycemic recs appreciated from the pharmacy team. Glycemic management appears to be much improved Cont NPH, lantus, and novolog. HbA1c <6.5% in September. Control adequate, monitor for hypoglycemia and hyperglycemia, no episodes the past 24 hours (6) Vomiting: Plan: Resolved no additional vomiting felt secondary to constipatin, on imaging no obstruction or ileus, needs to move bowels Miralax TID, can try suppository, on Senna advance to low fiber diet (7) Hyponatremia: Plan: improving (8) Morbid obesity: Plan: risk factor for covid morbidity BMI has improved s/p diuresis BMI high 30s (9) Asthma: Plan: with exacerbation - 2nd to COVID-19 infection. 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 no wheezing at all this week cough has improved with increasing frequency of nebs to q3h at her request cont steroids, pulmonary toilet. see above. follows w/ Dr Sina Estrada. Dr Estrada called patient the prior week for assurance (10) Hypertension: Plan: cont metoprolol. hold aldactone. (11) GERD (gastroesophageal reflux disease): Plan: Protonix IV, change to BID with vomiting H2 susan. (12) Atrial flutter, paroxysmal: Plan: History of. No a.fib/flutter while here. (13) DVT prophylaxis: Plan: Cont lovenox 60mg BID (0.5mg/kg BID). High risk of VTE given severity of COVID illness, famHx of VTE, etc. would discharge on Xarelto 10mg daily x 30 days, high risk of VTE even after discharge (14) Leukocytosis: Plan: due to steroids, coming down Plan: wean oxygen as tolerated work towards rehab at end of the week, PT/OT consulted discuss with infection control, might be suitable to come off airborne isolation Admission and Anticipated Discharge Date Admission Date: November 18, 2020 Subjective Patient attempted to ambulate to a chair in her room became markedly deconditioned tired and fatigued. Subsequently returned to bed she was complain of left lower quadrant abdominal pain at a previous hernia repair incision site. She also discloses the fact that she had kidney stones in the past. The pain escalated to the afternoon being colicky in nature. Nursing reports she has some pink-tinged urine. Subsequently we will proceed with noncontrast CT scan abdomen pelvis to evaluate for kidney stones and also for abdominal hernia issues. With regarding her Covid pneumonia respiratory failure these are improving oxygen saturation has required less supplemental oxygen to maintain greater than 90% Review of Systems Review of Systems: Moderate to severe distress and fatigue no headache, no visual changes no speech or swallowing issues no chest pain, pressure or palpitations Exertional shortness of breath, nonproductive cough Right lower quadrant abdominal pain, colicky, no nausea or vomiting, resolution of constipation no dysuria, does have mild hematuria but no frequency no focal joint pain or swelling no back pain, CVA tenderness or radicular pain no bruising, bleeding or rashes no focal signs of weakness or numbness or altered sensation no complaints of anxiety or depression.. Physical Exam Physical Exam: The patient appeared well nourished and normally developed. Mild distress with abdominal pain Vital signs as documented. Head exam is normocephalic atraumatic Neck is without JVD, thyromegaly, or carotid bruits. Lungs are faint bibasilar crackles Cardiac exam, Rhythm is regular.. No murmurs, rubs or gallops. Abdominal exam reveals normal bowel sounds, distended doughy right lower quadrant discomfort palpable previous linear scars from hernia repair no acute abdomen noted Extremities are nonedematous and both pedal pulses are present Neurologic exam is alert and oriented, no focal loss of strength or sensation Skin is without bruises or rashes Psychologically is without concerns for anxiety or depression Results & Data Results & Data ([facility]) Vital Signs (Past 12 Hours) Vital Signs Temp Pulse Pulse Pulse Resp BP Pulse Ox 12/04/20 07:04 98.4 F 88 23 108/71 94 12/04/20 05:42 88 26 H 94 12/04/20 04:25 90 12/04/20 00:00 85 12/03/20 23:40 98.6 F 86 19 119/79 95 12/03/20 21:23 93 H 20 91 12/03/20 20:35 99.0 F 100 H 24 120/86 90 PG Care Time/CCT Total # of Minutes Spent Total Time Spent with Patient: Total time spent is greater than 50% in coordination of care (as documented) at patient's floor/unit and/or counseling patient: Coding Level of Care Code 32205 Subseq Hosp Care Lvl 3 Diagnoses Pneumonia due to 2019 novel coronavirus U07.1; J12.82 Constipation K59.00 Acute respiratory failure with hypoxia J96.01 Type 2 diabetes mellitus with insulin therapy E11.9; Z79.4 Vomiting R11.10 Hyponatremia E87.1 Morbid obesity E66.01 Asthma J45.909 Hypertension I10 GERD (gastroesophageal reflux disease) K21.9 Atrial flutter, paroxysmal I48.92 DVT prophylaxis Z29.9 Leukocytosis D72.829 Right lower quadrant abdominal pain R10.31
[2020-12-04] MEDS: ACETAMINOPHEN 325 MG TAB PO PRN ×3 (08:02→22:29)
[2020-12-04] MEDS: LORazepam 0.5 MG TAB PO PRN (08:03)
[2020-12-04] MEDS: POLYETHYLENE (MIRALAX) 17 GM PACK PO SCH ×2 (08:07→21:38)
[2020-12-04] MEDS: BENZONATATE 100 MG CAPSULE PO SCH ×3 (08:29→21:27)
[2020-12-04] MEDS: DEXTROMETHORPHAN POLYMR COMPLX 30 MG/5 ML UDP PO PRN (08:30)
[2020-12-04] MEDS: guaiFENesin 600 MG TABCR PO SCH ×2 (08:31→21:32)
[2020-12-04] MEDS: ASPIRIN 81 MG ECTAB PO SCH (08:31)
[2020-12-04] MEDS: METOPROLOL TARTRATE 25 MG TAB PO SCH ×2 (08:32→21:29)
[2020-12-04] MEDS: buPROPion SR 100 MG TABCR PO SCH ×2 (08:32→21:29)
[2020-12-04] MEDS: CYANOCOBALAMIN 500 MCG TABLET (VITAMIN B-12) PO SCH (08:33)
[2020-12-04] MEDS: SENNA 8.6 MG TAB PO SCH (08:33)
[2020-12-04] MEDS: FUROSEMIDE 40 MG TAB PO SCH (08:34)
[2020-12-04] MEDS: POTASSIUM CHLORIDE CRTAB 20 MEQ TABCR PO SCH ×2 (08:35→22:39)
[2020-12-04] MEDS: dexAMETHasone 4 MG in SYRINGE 0 ML IV SCH (08:38)
[2020-12-04] MEDS: INSULIN ASPART 100 UNITS/ML 3 ML PEN SC SCH ×4 (08:38→21:00)
[2020-12-04] MEDS: PANTOprazole 40 MG in SYRINGE 0 ML IV SCH ×2 (08:38→21:36)
[2020-12-04] MEDS: ENOXAPARIN INJ 60 MG/0.6 ML SYR SQ SCH (08:39)
[2020-12-04] MEDS: MUPIROCIN 2% OINT 22 GM TUBE EXT SCH ×2 (09:59→21:34)
[2020-12-04] MEDS: FAMOTIDINE 20 MG in SYRINGE 3 ML IV SCH ×2 (10:04→21:26)
[2020-12-04] MEDS: FLUTICASONE FUROATE 200MCG 14 PUFFS/INHALER INH SCH (10:04)
[2020-12-04] MEDS: INSULIN HUMAN NPH SC SCH (10:07)
[2020-12-04] MEDS: LIDOCAINE 5% 1 PATCH TD SCH (11:08)
[2020-12-04] MEDS: DICLOFENAC SOD 1% GEL 100 GM TUBE EXT SCH ×2 (11:14→21:32)
[2020-12-04] MEDS: guaiFENesin/CODEINE 100MG/10MG 5ML UDC PO PRN (12:50)
--- NOTE | 2020-12-04 13:43 | Pharmacy Report ---
Pharmacy Glycemic Short Note 2 - Date of Service December 04, 2020 - Glycemic Short BSG Results (Last 24 hours): 12/03/20 12/03/20 12/04/20 17:13 20:32 07:37 POC Glucose 154 H 207 H 111 H 12/04/20 11:47 POC Glucose 186 H OUTPATIENT ANTIDIABETIC REGIMEN: * Basaglar 60 units HS * Ozempic 0.5mg SQ monthly * Metformin ER 1000mg PO BID * HbA1c 6.3% on 09/27/20 ASSESSMENT: 12/04 * BSGs 250-211-389-207 mg/dL with 96 units of insulin on board * Fasting 111 mg/dL this morning, continue NPH with dexamethasone * Carb ratio tightened to 3 yesterday, improved lunch BSG today, will keep same for now 12/03 * Patient's BSGs yesterday were [phone] mg/dL. * Patient received 100 units of insulin (44 units of basal and 56 units of bolus). * Fasting BSG today was 104 mg/dL. * Continue to hold Lantus. * Dexamethasone continued today with a decreased dose of 4 mg. Since NPH was not sufficient with dexamethasone 6 mg, this dose will probably be sufficient with less dexamethasone so continue with NPH 44 units. * Continue aggressive Novolog due to hyperglycemia with steroids. 12/01 * Dex day * AM fasting 78 mg/dL, will continue to hold additional basal, continue NPH with steroid in the morning * BSGs stable 84-171 mg/dL yesterday. Will continue current parameters 11/30 * Stressors stable - dexamethasone day * AM fasting BSG below goal range - will continue NPH but discontinue Lantus * Post-prandial BSG's mildly elevated x2 yesterday, but good today at lunch. Will keep for now. May increase NPH slightly tomorrow if AM fasting BSG is >100 mg/dL 11/29 * Stressors stable * AM fasting BSG below goal range - will continue NPH but reduce Lantus * Post-prandial BSG's elevated yesterday. Will tighten CHO ratio again 11/28 * Stressors stable * AM fasting BSG in range - no change to basal insulin * PO intake increased yesterday and was associated with increased post-prandial BSG's despite tightening of CHO ratio at lunch. Will tighten further and also tighten correction factor PLAN FOR INPATIENT GLYCEMIC CONTROL: * Hold outpatient Metformin and Ozempic diabetes medications * Basal insulin * NPH 44 units SQ daily with IV Dexamethasone * Bolus insulin * NovoLog per scale ACHS or Q6hrs while NPO * Goal Range: Low 110 mg/dL - High 140 mg/dL * Correction Factor: 15 mg/dL/unit * Nutritional / Prandial insulin per carb ratio of 1 unit per 3 grams CHO consumed PLAN FOR DISCHARGE: * A1c 6.3% at goal. Continue home regimen assuming frequent hypoglycemia as an outpatient is not occurring and assuming no contraindications exist at discharge
[2020-12-04] MEDS: HYDROmorphone INJ 0.5 MG/0.5 ML SYR IV PRN ×3 (15:58→23:43)
--- NOTE | 2020-12-04 17:41 | CT Scan Report ---
CT abd pelvis wo con CLINICAL HISTORY: eval for right sided kidney stone or hernia issue TECHNIQUE: Helical axial images of the abdomen and pelvis were obtained. Automated dose lowering tech niques and/or adjustment according to patient size were utilized for this exam. This exam was perfor med without intravenous contrast. COMPARISON: Comparison is made to CT abdomen and pelvis 12/04/2020 FINDINGS: Lower chest: Interstitial and groundglass opacities are seen in the visualized portion of the lower lungs. Liver: Unremarkable. No focal lesions are seen. Gallbladder and biliary tree: Layering sludge is noted in the gallbladder. No evidence of cholecystit is. No intra- or extrahepatic biliary ductal dilation. Pancreas: Unremarkable, no focal lesions. Spleen: Unremarkable. Adrenals: Unremarkable. Kidneys and ureters: Bilateral hydronephrosis is seen. Multiple stones are seen in the bilateral kidn eys. Bladder: Wall thickening is seen in the bladder which may be reactive. Reproductive organs: Uterus is unremarkable. There is a layering mixed density 10.7 x 7.0 cm lesion i n the right adnexa. There is also a hyperdense 5.8 x 7.5 cm mass adjacent to the inferior right rectu s abdominis musculature. Bowel: Unremarkable. Lymph nodes Retroperitoneal: Unremarkable. Mesenteric: Unremarkable. Pelvic: Unremarkable. Peritoneum: Hyperdense stranding is seen in the pelvis. Vessels: Atherosclerotic calcifications are seen. Abdominal wall: A ventral hernia is again seen. Injection granulomata are seen in the left lower quad rant. Bones: Degenerative changes in the visualized spine. IMPRESSION: 1. Complex hemorrhagic and/or solid mass in the right pelvis may represent a hemorrhagic cyst or acu te hemorrhage of other etiology. Hyperdense collection adjacent to the right rectus musculature may r epresent an extension of this hemorrhage or intramuscular hematoma. There is surrounding fat strandin g and reactive thickening of the bladder wall and hydronephrosis bilaterally which is new from the pr ior exam. 2. Additional findings as above. ACT 112: Negative or not required by law. Electronically signed by: Jose Daniel Beckford M.D. 12/04/2020 5:39 PM
[2020-12-04 18:47] LABS: Hematocrit (blood only) 34.3 % (37-47); Hemoglobin 10.9 g/dL (12.0-16.0); Mean Corpuscular Hemoglobin 29.1 pg (25-34); Mean Corpuscular Volume 91.5 fL (80-100); Mean Platelet Volume 10.2 fL (7.4-10.4); Platelet Count 377 K/uL (130-400); RDW Coefficient of Variation 14.7 % (11.5-14.5); RDW Standard Deviation 48.7 fL (36.4-46.3); Red Blood Count 3.75 M/uL (4.2-5.4); White Blood Count 28.31 K/uL (4.8-10.8)
[2020-12-04 18:49] LABS: Mean Corpuscular Hgb Conc 31.8 g/dL (32-36)
[2020-12-04 18:59] LABS: INR 1.1 (0.9-1.1); Prothrombin Time 10.7 Seconds (9.0-12.0)
[2020-12-04 19:18] LABS: Albumin Globulin Ratio 0.7 (0.9-2); Albumin Level 2.9 gm/dl (3.4-5.0); BUN Creatinine Ratio 17.8 (10-20); Bilirubin,Total 0.5 mg/dl (0.2-1); Calcium 9.4 mg/dl (8.5-10.1); Creatinine Clr Calc Pharmacy 68.6 ml/min; Est GFR (African American) 59.3 ml/min; Est GFR (Non-African American) 51.2 ml/min; Globulin 4.3 gm/dl (2.5-4.0); Potassium 4.7 mmol/L (3.5-5.1); Total Protein 7.2 gm/dl (6.4-8.2)
[2020-12-04] MEDS: LORazepam 0.25 MG/0.5 ML VIAL IV PRN (19:29)
[2020-12-04] MEDS: MONTELUKAST SODIUM 10 MG TABLET PO SCH (21:31)
[2020-12-05] MEDS: ACETAMINOPHEN 325 MG TAB PO PRN ×2 (03:29→20:22)
[2020-12-05] MEDS: HYDROmorphone INJ 1 MG/ML SYRINGE IV PRN ×3 (03:56→22:44)
[2020-12-05] MEDS: ALBUTEROL 0.083% NEBU SOLN 3 ML VIAL NEB PRN (04:00)
[2020-12-05] MEDS: ALBUT/IPRATROP 3MG/0.5MG NEB 3 ML VIAL NEB SCH ×6 (05:31→22:07)
--- NOTE | 2020-12-05 07:07 | Hospitalist Progress Note ---
Date of Service December 05, 2020 Assessment & Plan (1) Pneumonia due to 2019 novel coronavirus: Plan: SEVERE COVID pneumonia, hospitalized since 11/18/20, she is about 3 weeks into her illness improving oxygen requirements likely will need rehab, extreme exertional fatigue Day #14 of baricitinib, finished Day #16 of IV dexamethasone, decreased to 4mg IV on 12/03, would taper slowly, very sensitive Completed 5-day course of Remdesivir. Procal x 2 both negative during the stay; abx deferred. CRP initially high but improved with steroids/baricitinib. Continue aggressive pulmonary toilet. Nebs q3 WA, helping the most with cough tessalon 200mg TID, mucinex 600mg BID, guaitussin ac q6h prn. DVT proph - lovenox BID. (2) Right lower quadrant abdominal pain: Plan: Patient is reproducible pain along previous linear hernia repair scars in her lower abdomen. there is no recurrence of her hernia. pain secondary to abdominal muscle hematoma with extension into pelvis, hgb has been stable noncontrast CT scan reveals a complex hemorrhage that includes the abdominal musculature and extending into the pelvis and adnexa, the pt did have recent imaging of her abdomen in the past year without adnexal abnormalities making masses less likely reviewed repeat pelvic us, cannot identify ovaries, , did stop lovenox and change to scd. will likely need gyne follow up and repeat imaging as an outpt (3) Acute blood loss anemia: Plan: Acute blood loss anemia from abdominal musculature hematoma and intra-abdominal pelvic hematoma. This likely occurred due to coughing and abdominal wall stressors while being on full anticoagulation of Lovenox (4) Constipation: Plan: senna + miralax no obstruction or ileus on KUB 11/29 Resolved constipation (5) Acute respiratory failure with hypoxia: Plan: Resolving daily BIPAP HS weaning to lower levels of oxygen (6) Type 2 diabetes mellitus with insulin therapy: Plan: Glycemic recs appreciated from the pharmacy team. Glycemic management appears to be much improved Cont NPH, lantus, and novolog. HbA1c <6.5% in September. Control adequate, monitor for hypoglycemia and hyperglycemia, no episodes the past 24 hours (7) Vomiting: Plan: Resolved no additional vomiting felt secondary to constipatin, on imaging no obstruction or ileus, needs to move bowels Miralax TID, can try suppository, on Senna advance to low fiber diet (8) Hyponatremia: Plan: improving (9) Morbid obesity: Plan: risk factor for covid morbidity BMI has improved s/p diuresis BMI high 30s (10) Asthma: Plan: with exacerbation - 2nd to COVID-19 infection. 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 no wheezing at all this week cough has improved with increasing frequency of nebs to q3h at her request cont steroids, pulmonary toilet. see above. follows w/ Dr Sina Estrada. Dr Estrada called patient the prior week for assurance (11) Hypertension: Plan: cont metoprolol. hold aldactone. (12) GERD (gastroesophageal reflux disease): Plan: Protonix IV, change to BID with vomiting H2 susan. (13) Atrial flutter, paroxysmal: Plan: History of. No a.fib/flutter while here. (14) DVT prophylaxis: Plan: Patient is questionable compression devices. Due to significance of hematoma and anemia. High risk of VTE given severity of COVID illness, famHx of VTE, etc. (15) Leukocytosis: Plan: Significant leukocytosis with dysuria and hematuria. Will cover with ceftriaxone urine cultures obtained for concern with urinary tract infection Plan: wean oxygen as tolerated work towards rehab at end of the week, PT/OT consulted discuss with infection control, might be suitable to come off airborne isolation in the next few days Admission and Anticipated Discharge Date Admission Date: November 18, 2020 Subjective Patient feels weak tired and worn out. She is having some dysuria and pink- tinged urine. She did have an escalation of her white count 28,000 but did have an intra-abdominal hemorrhage which likely originated from her abdominal musculature and was encouraged by her anticoagulation which was administered because of Covid hypercoagulability. updated Patient was unable to urinate well [place] catheter was placed Review of Systems Review of Systems: Moderate to severe distress and fatigue no headache, no visual changes no speech or swallowing issues no chest pain, pressure or palpitations Remains with exertional shortness of breath, nonproductive cough Right lower quadrant abdominal pain, colicky, no nausea or vomiting, resolution of constipation No complaints of dysuria, does have mild hematuria but no frequency no focal joint pain or swelling no back pain, CVA tenderness or radicular pain Small bruising seen just inferior to her previous hernia repair site no focal signs of weakness or numbness or altered sensation no complaints of anxiety or depression.. Physical Exam Physical Exam: The patient appeared well nourished and normally developed. Mild distress with abdominal pain Vital signs as documented. Head exam is normocephalic atraumatic Neck is without JVD, thyromegaly, or carotid bruits. Lungs are faint bibasilar crackles Cardiac exam, Rhythm is regular.. No murmurs, rubs or gallops. Abdominal exam reveals normal bowel sounds, distended doughy right lower quadrant discomfort palpable previous linear scars from hernia repair no acute abdomen noted Extremities are nonedematous and both pedal pulses are present Neurologic exam is alert and oriented, no focal loss of strength or sensation Skin is with some bruises becoming apparent near her hernia repair site right lower quadrant Psychologically is without concerns for anxiety or depression Results & Data Results & Data ([facility]) Vital Signs (Past 12 Hours) Vital Signs Temp Pulse Pulse Pulse Resp BP Pulse Ox 12/05/20 05:32 103 H 17 94 12/05/20 04:00 98 H 18 97 12/05/20 03:30 98.4 F 100 H 26 H 116/91 96 12/05/20 00:00 84 12/04/20 23:25 98.6 F 95 H 23 150/101 H 93 12/04/20 22:06 101 H 30 H 91 12/04/20 21:23 92 H 23 150/101 H 97 12/04/20 19:46 98.6 F 97 H 26 H 129/89 98 12/04/20 19:29 34 H 92 PG Care Time/CCT Total # of Minutes Spent Total Time Spent with Patient: Total time spent is greater than 50% in coordination of care (as documented) at patient's floor/unit and/or counseling patient: Coding Level of Care Code 76655 Subseq Hosp Care Lvl 3 Diagnoses Pneumonia due to 2019 novel coronavirus U07.1; J12.82 Right lower quadrant abdominal pain R10.31 Constipation K59.00 Acute respiratory failure with hypoxia J96.01 Type 2 diabetes mellitus with insulin therapy E11.9; Z79.4 Vomiting R11.10 Hyponatremia E87.1 Morbid obesity E66.01 Asthma J45.909 Hypertension I10 GERD (gastroesophageal reflux disease) K21.9 Atrial flutter, paroxysmal I48.92 DVT prophylaxis Z29.9 Leukocytosis D72.829 Acute blood loss anemia D62
[2020-12-05 07:39] LABS: Albumin Level 2.8 gm/dl (3.4-5.0); BUN Creatinine Ratio 21.1 (10-20); Bilirubin Direct 0.1 mg/dl (0-0.2); Calcium 9.3 mg/dl (8.5-10.1); Creatinine Clr Calc Pharmacy 54.8 ml/min; Est GFR (African American) 44.9 ml/min; Est GFR (Non-African American) 38.8 ml/min; Potassium 4.7 mmol/L (3.5-5.1)
[2020-12-05 07:42] LABS: Bilirubin,Total 0.5 mg/dl (0.2-1); Total Protein 6.9 gm/dl (6.4-8.2)
[2020-12-05] MEDS ORDERED: INSULIN HUMAN NPH SC SCH (09:00)
[2020-12-05] MEDS: dexAMETHasone 4 MG in SYRINGE 0 ML IV SCH (09:43)
[2020-12-05] MEDS: FAMOTIDINE 20 MG in SYRINGE 3 ML IV SCH (09:45)
[2020-12-05] MEDS: PANTOprazole 40 MG in SYRINGE 0 ML IV SCH (09:46)
[2020-12-05] MEDS: INSULIN ASPART 100 UNITS/ML 3 ML PEN SC SCH ×4 (09:48→21:53)
[2020-12-05] MEDS: LORazepam 0.5 MG TAB PO PRN (09:49)
[2020-12-05] MEDS: CYANOCOBALAMIN 500 MCG TABLET (VITAMIN B-12) PO SCH (09:50)
[2020-12-05] MEDS: ASPIRIN 81 MG ECTAB PO SCH (09:51)
[2020-12-05] MEDS: SENNA 8.6 MG TAB PO SCH (09:52)
[2020-12-05] MEDS: METOPROLOL TARTRATE 25 MG TAB PO SCH ×2 (09:52→20:06)
[2020-12-05] MEDS: FUROSEMIDE 40 MG TAB PO SCH (09:52)
[2020-12-05] MEDS: buPROPion SR 100 MG TABCR PO SCH ×2 (09:54→20:06)
[2020-12-05] MEDS: guaiFENesin 600 MG TABCR PO SCH ×2 (09:54→20:04)
[2020-12-05] MEDS: BENZONATATE 100 MG CAPSULE PO SCH ×3 (09:55→20:03)
[2020-12-05] MEDS: FLUTICASONE FUROATE 200MCG 14 PUFFS/INHALER INH SCH (09:56)
[2020-12-05] MEDS: DICLOFENAC SOD 1% GEL 100 GM TUBE EXT SCH ×2 (09:56→20:11)
[2020-12-05] MEDS: LIDOCAINE 5% 1 PATCH TD SCH (09:57)
[2020-12-05] MEDS: POTASSIUM CHLORIDE CRTAB 20 MEQ TABCR PO SCH ×2 (09:58→20:03)
[2020-12-05] MEDS: POLYETHYLENE (MIRALAX) 17 GM PACK PO SCH ×2 (09:59→20:07)
[2020-12-05] MEDS: MUPIROCIN 2% OINT 22 GM TUBE EXT SCH ×2 (09:59→20:12)
[2020-12-05] MEDS: DEXTROMETHORPHAN POLYMR COMPLX 30 MG/5 ML UDP PO PRN ×2 (10:00→20:09)
--- NOTE | 2020-12-05 12:17 | Pharmacy Report ---
Pharmacy Glycemic Short Note 2 - Date of Service December 05, 2020 - Glycemic Short BSG Results (Last 24 hours): 12/04/20 12/04/20 12/04/20 16:41 18:32 20:09 Glucose 234 H POC Glucose 205 H 188 H 12/05/20 12/05/20 12/05/20 06:27 07:55 11:54 Glucose 165 H POC Glucose 155 H 252 H OUTPATIENT ANTIDIABETIC REGIMEN: * Basaglar 60 units HS * Ozempic 0.5mg SQ monthly * Metformin ER 1000mg PO BID * HbA1c 6.3% on 09/27/20 ASSESSMENT: 12/05 * Patient fasting BSG trending up, will monitor. Post prandials [phone] yesterday. Will increase NPH by ~10% and tighten CF. * Today's lunch BSG elevated at 252. However this may be falsely elevated to some extent given only 2 hours between AM NovoLog and lunch BSG draw. Will monitor today's trend before making any further changes * Patient continues on steroids and is tolerating a diet. 12/04 * BSGs [phone] mg/dL with 96 units of insulin on board * Fasting 111 mg/dL this morning, continue NPH with dexamethasone * Carb ratio tightened to 3 yesterday, improved lunch BSG today, will keep same for now 12/03 * Patient's BSGs yesterday were [phone] mg/dL. * Patient received 100 units of insulin (44 units of basal and 56 units of bolus). * Fasting BSG today was 104 mg/dL. * Continue to hold Lantus. * Dexamethasone continued today with a decreased dose of 4 mg. Since NPH was not sufficient with dexamethasone 6 mg, this dose will probably be sufficient with less dexamethasone so continue with NPH 44 units. * Continue aggressive Novolog due to hyperglycemia with steroids. 12/01 * Dex day * AM fasting 78 mg/dL, will continue to hold additional basal, continue NPH with steroid in the morning * BSGs stable 84-171 mg/dL yesterday. Will continue current parameters 11/30 * Stressors stable - dexamethasone day * AM fasting BSG below goal range - will continue NPH but discontinue Lantus * Post-prandial BSG's mildly elevated x2 yesterday, but good today at lunch. Will keep for now. May increase NPH slightly tomorrow if AM fasting BSG is >100 mg/dL 11/29 * Stressors stable * AM fasting BSG below goal range - will continue NPH but reduce Lantus * Post-prandial BSG's elevated yesterday. Will tighten CHO ratio again 11/28 * Stressors stable * AM fasting BSG in range - no change to basal insulin * PO intake increased yesterday and was associated with increased post-prandial BSG's despite tightening of CHO ratio at lunch. Will tighten further and also tighten correction factor PLAN FOR INPATIENT GLYCEMIC CONTROL: * Hold outpatient Metformin and Ozempic diabetes medications * Basal insulin * NPH 48 units SQ daily with IV Dexamethasone * Bolus insulin * NovoLog per scale ACHS or Q6hrs while NPO * Goal Range: Low 110 mg/dL - High 140 mg/dL * Correction Factor: 12 mg/dL/unit * Nutritional / Prandial insulin per carb ratio of 1 unit per 3 grams CHO consumed PLAN FOR DISCHARGE: * A1c 6.3% at goal. Continue home regimen assuming frequent hypoglycemia as an outpatient is not occurring and assuming no contraindications exist at discharge
--- NOTE | 2020-12-05 15:48 | Ultrasound Report ---
US transvaginal, US pelvic complete CLINICAL HISTORY: eval adnexal mass TECHNIQUE: Real-time transvaginal sonographic images of the pelvic contents were obtained. Comparison: Comparison is made to CT abdomen and pelvis 12/04/2020 FINDINGS: The uterus measures 7.5 x 2.7 x 3.8 cm. The appearance of the uterus is normal. The endometrial cavit y echo stripe is not visualized. The ovaries were not visualized. There is a right adnexal collection measuring 13 x 9 x 7 cm which co mmunicates with the an anterior abdominal collection measuring 13.5 x 5.7 x 13.0 cm. There are nonvas cular and of heterogeneous echogenicity. There was no fluid in the cul-de-sac. IMPRESSION: 2 right pelvic heterogeneous collections compatible with hematoma seen on prior CT. The ovaries are n ot definitely visualized at the origin of the hemorrhage cannot be ascertained from this exam. ACT 112: Negative or not required by law. Electronically signed by: Jose Daniel Beckford M.D. 12/05/2020 3:46 PM
[2020-12-05] MEDS: cefTRIAXone SODIUM 2,000 MG in DEXTROSE 5% 50 ML IV SCH (16:10)
[2020-12-05] MEDS: MONTELUKAST SODIUM 10 MG TABLET PO SCH (20:07)
[2020-12-05] MEDS: FAMOTIDINE 20 MG TAB PO SCH (20:10)
[2020-12-05] MEDS: PANTOprazole 40 MG TAB PO SCH (20:11)
[2020-12-06] MEDS: LORazepam 0.5 MG TAB PO PRN ×2 (05:30→21:23)
--- NOTE | 2020-12-06 07:05 | Hospitalist Progress Note ---
Date of Service December 06, 2020 Assessment & Plan (1) Right lower quadrant abdominal pain: Plan: This is now coalesced into a large retroperitoneal bleed 19 x [address] scan from 12/06/2020. Hemoglobin did drop making his acute blood loss anemia from 12.9 g to 7.3 g. Patient consented for 2 units packed red blood cells. Patient had enoxaparin stopped on the aspirin stopped on the patient will have coagulation products checked. Pain control with parenteral opiates (2) Pneumonia due to 2019 novel coronavirus: Plan: SEVERE COVID pneumonia, hospitalized since 11/18/20, Covid responses continue to improve now on 3 L nasal cannula improving oxygen requirements likely will need rehab, extreme exertional fatigue Day #14 of baricitinib, finished Day #16 of IV dexamethasone, decreased to 4mg IV on 12/03, would taper slowly, very sensitive Completed 5-day course of Remdesivir. Procal x 2 both negative during the stay; abx deferred. CRP initially high but improved with steroids/baricitinib. Continue aggressive pulmonary toilet. Nebs q3 WA, helping the most with cough tessalon 200mg TID, mucinex 600mg BID, guaitussin ac q6h prn. (3) Acute kidney injury: Plan: Patient developed acute kidney injury with history of chronic kidney disease stage II. CT scan on 12/06 shows extrinsic compression of bilateral ureters with mild hydronephrosis seen. However her creatinine did improve with cessation of diuretic therapy which was initially being used for her Covid pneumonia. Creatinine is now come down to 1.09 from 1.5. Watchful waiting given concern for expansion of retroperitoneal mass affecting ureteral drainage. Her postobstructive change from her urine being retained in her bladder has been relieved with [place] catheter (4) Acute blood loss anemia: Plan: Acute blood loss anemia from abdominal musculature hematoma and large retroperitoneal hematoma this likely occurred due to coughing and abdominal wall stressors while being on anticoagulation of Lovenox 0.5 mg/kg subcu twice daily subsequently held (5) Constipation: Plan: senna + miralax no obstruction or ileus on KUB 11/29 Resolved constipation (6) Acute respiratory failure with hypoxia: Plan: Resolving daily BIPAP HS weaning to lower levels of oxygen (7) Type 2 diabetes mellitus with insulin therapy: Plan: Glycemic recs appreciated from the pharmacy team. Glycemic management appears to be much improved Cont NPH, lantus, and novolog. HbA1c <6.5% in September. Control adequate, monitor for hypoglycemia and hyperglycemia, no episodes the past 24 hours (8) Vomiting: Plan: Resolved no additional vomiting felt secondary to constipatin, on imaging no obstruction or ileus, needs to move bowels Miralax TID, can try suppository, on Senna advance to low fiber diet (9) Hyponatremia: Plan: improving (10) Morbid obesity: Plan: risk factor for covid morbidity BMI has improved s/p diuresis BMI high 30s (11) Asthma: Plan: with exacerbation - 2nd to COVID-19 infection. 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 no wheezing at all this week cough has improved with increasing frequency of nebs to q3h at her request cont steroids, pulmonary toilet. see above. follows w/ Dr Sina Estrada. Dr Estrada called patient the prior week for assurance (12) Hypertension: Plan: cont metoprolol. hold aldactone. (13) GERD (gastroesophageal reflux disease): Plan: Protonix IV, change to BID with vomiting H2 susan. (14) Atrial flutter, paroxysmal: Plan: History of. No a.fib/flutter while here. (15) DVT prophylaxis: Plan: Patient is sequential compression devices. Due to significance of hematoma and anemia. High risk of VTE given severity of COVID illness, famHx of VTE, etc. (16) Leukocytosis: Plan: Significant leukocytosis with dysuria and hematuria. Will cover with ceftriaxone urine cultures obtained for concern with urinary tract infection Plan: wean oxygen as tolerated work towards rehab at end of the week, PT/OT consulted discuss with infection control, might be suitable to come off airborne isolation in the next few days Admission and Anticipated Discharge Date Admission Date: November 18, 2020 Subjective Patient feels weak tired and worn out. She is having some dysuria and pink-t inged urine. She had a decrease in her blood count to 7.3 g today I did verbally consent her for blood. He requested to call Dr. Rhoades who is a family relative of hers which I did call. Give her 2 units packed red blood cells today. Will check clotting parameters, there is a call out to [facility] radiology to see if this would be case amenable to consideration. updated Given her leukocytosis urinary changes she was started on Rocephin. White blood cell count did come down to 24,000 low-grade fevers persist but could be irritant from her large hematoma Patient was unable to urinate well [place] catheter was placed Review of Systems Review of Systems: Moderate to severe distress and fatigue no headache, no visual changes no speech or swallowing issues no chest pain, pressure or palpitations Remains with exertional shortness of breath, nonproductive cough Bilateral lower quadrant abdominal pain, worse to exam and remove No complaints of dysuria, does have mild hematuria but no frequency no focal joint pain or swelling no back pain, CVA tenderness or radicular pain Bilateral flank bruising is expanding no focal signs of weakness or numbness or altered sensation Patient is tearful and appears depressed Physical Exam Physical Exam: The patient appeared well nourished and normally developed. Mild distress with abdominal pain Vital signs as documented. Head exam is normocephalic atraumatic Neck is without JVD, thyromegaly, or carotid bruits. Lungs continue with faint bibasilar crackles Cardiac exam, Rhythm is regular.. No murmurs, rubs or gallops. Abdominal exam reveals hyperactive bowel sounds, bilateral lower quadrant pain bruising on the bilateral flanks Extremities are nonedematous and both pedal pulses are present Neurologic exam is alert and oriented, no focal loss of strength or sensation Skin is with increasing bruising on her sides consistent with retroperitoneal bleed Psychologically is without concerns for anxiety or depression Results & Data Results & Data ([facility]) Vital Signs (Past 12 Hours) Vital Signs Temp Pulse Pulse Resp BP Pulse Ox 12/06/20 04:01 98.2 F 85 20 133/83 91 12/06/20 00:00 97 H 12/05/20 23:07 99.5 F 96 H 19 127/80 94 12/05/20 22:07 96 H 16 97 12/05/20 19:31 98.4 F 102 H 20 117/75 99 12/05/20 19:22 108 H 24 90 PG Care Time/CCT Total # of Minutes Spent Total Time Spent with Patient: Total time spent is greater than 50% in coordination of care (as documented) at patient's floor/unit and/or counseling patient: Coding Level of Care Code 84169 Subseq Hosp Care Lvl 3 Diagnoses Pneumonia due to 2019 novel coronavirus U07.1; J12.82 Right lower quadrant abdominal pain R10.31 Acute blood loss anemia D62 Constipation K59.00 Acute respiratory failure with hypoxia J96.01 Type 2 diabetes mellitus with insulin therapy E11.9; Z79.4 Vomiting R11.10 Hyponatremia E87.1 Morbid obesity E66.01 Asthma J45.909 Hypertension I10 GERD (gastroesophageal reflux disease) K21.9 Atrial flutter, paroxysmal I48.92 DVT prophylaxis Z29.9 Leukocytosis D72.829 Acute kidney injury N17.9
[2020-12-06] MEDS: ALBUT/IPRATROP 3MG/0.5MG NEB 3 ML VIAL NEB SCH ×6 (07:10→22:19)
[2020-12-06 08:26] LABS: Albumin Globulin Ratio 0.6 (0.9-2); Albumin Level 2.5 gm/dl (3.4-5.0); Bilirubin,Total 0.6 mg/dl (0.2-1); Calcium 9.5 mg/dl (8.5-10.1); Creatinine Clr Calc Pharmacy 78.7 ml/min; Est GFR (African American) 66.6 ml/min; Est GFR (Non-African American) 57.5 ml/min; Globulin 3.9 gm/dl (2.5-4.0); Potassium 4.4 mmol/L (3.5-5.1); Total Protein 6.4 gm/dl (6.4-8.2)
[2020-12-06 08:27] LABS: Hematocrit (blood only) 24.2 % (37-47); Hemoglobin 7.8 g/dL (12.0-16.0); Mean Corpuscular Hemoglobin 29.2 pg (25-34); Mean Corpuscular Hgb Conc 32.2 g/dL (32-36); Mean Corpuscular Volume 90.6 fL (80-100); Mean Platelet Volume 9.6 fL (7.4-10.4); Nucleated RBC # (auto) 0.45 K/uL (0-0); Nucleated RBC % (auto) 1.8 %; Platelet Count 339 K/uL (130-400); RDW Coefficient of Variation 14.8 % (11.5-14.5); RDW Standard Deviation 47.7 fL (36.4-46.3); Red Blood Count 2.67 M/uL (4.2-5.4); White Blood Count 24.19 K/uL (4.8-10.8)
[2020-12-06] MEDS ORDERED: SODIUM CHLORIDE 0.9% 250 ML IV PRN ×2 (09:01→16:23)
[2020-12-06] MEDS: SENNA 8.6 MG TAB PO SCH (09:30)
[2020-12-06] MEDS: buPROPion SR 100 MG TABCR PO SCH ×2 (09:31→21:14)
[2020-12-06] MEDS: ASPIRIN 81 MG ECTAB PO SCH (09:31)
[2020-12-06] MEDS: BENZONATATE 100 MG CAPSULE PO SCH ×3 (09:31→21:11)
[2020-12-06] MEDS: dexAMETHasone 4 MG in SYRINGE 0 ML IV SCH (09:32)
[2020-12-06] MEDS: CYANOCOBALAMIN 500 MCG TABLET (VITAMIN B-12) PO SCH (09:32)
[2020-12-06] MEDS: POTASSIUM CHLORIDE CRTAB 20 MEQ TABCR PO SCH ×2 (09:33→21:12)
[2020-12-06] MEDS: PANTOprazole 40 MG TAB PO SCH ×2 (09:34→21:15)
[2020-12-06] MEDS: POLYETHYLENE (MIRALAX) 17 GM PACK PO SCH ×2 (09:34→21:17)
[2020-12-06] MEDS: METOPROLOL TARTRATE 25 MG TAB PO SCH ×2 (09:35→21:16)
[2020-12-06] MEDS: MUPIROCIN 2% OINT 22 GM TUBE EXT SCH ×2 (09:35→21:16)
[2020-12-06] MEDS: LIDOCAINE 5% 1 PATCH TD SCH (09:36)
[2020-12-06] MEDS: guaiFENesin 600 MG TABCR PO SCH ×2 (09:38→21:15)
[2020-12-06] MEDS: DICLOFENAC SOD 1% GEL 100 GM TUBE EXT SCH ×2 (09:39→21:12)
[2020-12-06] MEDS: FAMOTIDINE 20 MG TAB PO SCH ×2 (09:39→21:13)
[2020-12-06] MEDS: INSULIN ASPART 100 UNITS/ML 3 ML PEN SC SCH ×4 (10:01→21:40)
[2020-12-06] MEDS: INSULIN HUMAN NPH SC SCH (10:02)
[2020-12-06] MEDS: FLUTICASONE FUROATE 200MCG 14 PUFFS/INHALER INH SCH (11:09)
--- NOTE | 2020-12-06 14:00 | CT Scan Report ---
ABDOMEN AND PELVIS CT WITHOUT CONTRAST CT DOSE: 1160.31 mGycm HISTORY: Pelvic hematoma. Follow-up. Pelvic pain. eval for expansion of hematoma TECHNIQUE: Multiaxial CT images of the abdomen and pelvis were performed without contrast. A dose lo wering technique was utilized adhering to the principles of ALARA. COMPARISON STUDY: Abdomen and pelvis CT 12/04/2020. FINDINGS: There is again noted a large right pelvic extraperitoneal hematoma which is heterogeneous a nd measures approximately 19 x 9 cm. This appears to have slightly increased in size compared to the prior study when it measured approximately 17 x 8 cm. There is a small of hemorrhage extending into t he right retroperitoneal space to the level of the right kidney. There is also a small amount of left retroperitoneal hemorrhage along the left iliopsoas muscle. There is a small of hemorrhage extending into the right lower rectus sheath, unchanged. There is a small fat-containing midline lower abdomin al wall hernia which contains a small amount of hemorrhage. This is also unchanged. The dominant righ t pelvic retroperitoneal hematoma results in severe mass effect and displacement of the bladder to th e left. The bladder is completely decompressed by a Houston catheter. There is moderate bilateral hydro nephrosis, unchanged. This is likely due to compression of the distal ureter/bladder from the pelvic hematoma. Multiple bilateral renal calculi are again noted. Soft tissue contusion within the right la teral abdominal wall. No acute fractures within the visualized osseous structures. Patchy groundglass bibasilar densities and interstitial thickening remain unchanged. No pneumoperitoneum. No pneumatosi s. The unenhanced liver, gallbladder, spleen, adrenal glands, and pancreas are suboptimally assessed due to motion artifact but appear grossly unremarkable. No retroperitoneal lymphadenopathy. Normal ca liber abdominal aorta. No bowel wall thickening or obstruction. A few colonic diverticula. No evidenc e for acute diverticulitis. Normal appendix. IMPRESSION: 1. Slight increase in size in the large right pelvic extraperitoneal hematoma which now measures 19 x 9 cm. There are additional smaller areas of hemorrhage extending into the bilateral retroperitoneal spaces and right rectus sheath which have also slightly increased in size. 2. The large right retroperitoneal hematoma results in significant mass effect and leftward displacem ent of the bladder which is now completely decompressed secondary to a Houston catheter. Moderate bilat eral hydroureteronephrosis persists which is likely due to compression of the distal ureters/bladder from the hematoma. 3. Bilateral nephrolithiasis. 4. Patchy groundglass and interstitial opacities within the lung bases are again noted. ACT 112: Negative or not required by law. Electronically signed by: Oli Harvey M.D. 12/06/2020 1:58 PM
[2020-12-06] MEDS: cefTRIAXone SODIUM 2,000 MG in DEXTROSE 5% 50 ML IV SCH (14:17)
[2020-12-06 17:29] LABS: Fibrinogen 538 mg/dl (184-400); Partial Thromboplastin Ratio 0.8; Prothrombin Time 10.6 Seconds (9.0-12.0)
[2020-12-06] MEDS: DEXTROMETHORPHAN POLYMR COMPLX 30 MG/5 ML UDP PO PRN ×2 (17:29→21:11)
[2020-12-06] MEDS: ACETAMINOPHEN 325 MG TAB PO PRN (18:01)
[2020-12-06] MEDS ORDERED: OPTIRAY 320 125ml IV ONE (20:01)
--- NOTE | 2020-12-06 20:39 | CT Scan Report ---
CT angio abd pelvis wo/w con CLINICAL HISTORY: Evaluate for bleeding, non contrast, arterial and venous phase COMPARISON STUDY: CT of the abdomen and pelvis performed earlier today. TECHNIQUE: Unenhanced, arterial and venous phase imaging of the abdomen and pelvis was performed. Int ravenous injection 117 cc Optiray 320 IV was uneventful. Sagittal and coronal reconstructions were vi ewed as well as maximal intensity projections on an independent 3-D workstation. Automated exposure c ontrol was utilized for the study. A dose lowering technique was utilized adhering to the principles of ALARA. FINDINGS: Groundglass opacities within the lower lungs are again noted. No pneumatosis, free air or p ortal venous gas is present. The liver, spleen, adrenal glands and pancreas are unremarkable. Moderat e bilateral hydroureteronephrosis is unchanged since CT performed earlier today. Multiple bilateral r enal calculi are noted. There are several distal right ureteral calculi which measure up to 4 mm. The se do not appear to result in hydronephrosis. A Houston balloon within the bladder is noted. Marked mas s effect upon the bladder is noted by the large right pelvic extraperitoneal hematoma. Several compon ents of the hematoma are present. In aggregate, this hematoma measures 19 x 9.6 cm. This is unchanged since prior exam. The appearance of the hematoma with adjacent hemorrhage is unchanged since CT perf ormed earlier today. A portion of this hematoma is within the right rectus sheath. A large component within the right hemipelvis is noted. As before, hemorrhage extends into the bilateral retroperitonea l spaces. No new sites of hemorrhage are present. No active extravasation is identified on this exami nation. The appearance of the abdomen and pelvis is unchanged from earlier examination. Caliber of th e abdominal aorta is normal. Major branch vessels are patent. There is no evidence for a bowel obstru ction. No acute fracture or suspicious lesion is identified within visualized skeletal structures. IMPRESSION: 1. No change in the large right pelvic extraperitoneal hematoma since CT performed earlier today. In aggregate, the hematoma measures 19 x 9.6 cm with a portion within the right rectus sheath and right hemipelvis. Adjacent hemorrhage also unchanged. No active extravasation. Unremarkable CTA. 2. No change in moderate bilateral hydronephrosis. Marked mass effect upon the bladder and distal ure ters, unchanged. 3. Bilateral nephrolithiasis. Several small nonobstructing distal right ureteral calculi. 4. Redemonstration of groundglass opacities within the lower lungs. ACT 112: Negative or not required by law. Electronically signed by: Edson Alan M.D. 12/06/2020 8:37 PM
[2020-12-06] MEDS ORDERED: ACETAMINOPHEN 325 MG TAB PO ONE (20:57)
[2020-12-06] MEDS: MONTELUKAST SODIUM 10 MG TABLET PO SCH (21:14)
[2020-12-07] MEDS: ALBUT/IPRATROP 3MG/0.5MG NEB 3 ML VIAL NEB SCH ×6 (05:06→22:39)
[2020-12-07 06:42] LABS: Hemoglobin 8.9 g/dL (12.0-16.0); Mean Corpuscular Hemoglobin 29.7 pg (25-34); Mean Platelet Volume 9.4 fL (7.4-10.4); Nucleated RBC # (auto) 0.49 K/uL (0-0); Nucleated RBC % (auto) 2.7 %; Platelet Count 266 K/uL (130-400); RDW Coefficient of Variation 15.4 % (11.5-14.5); RDW Standard Deviation 48.1 fL (36.4-46.3); White Blood Count 17.91 K/uL (4.8-10.8)
[2020-12-07 07:08] LABS: Calcium 9.3 mg/dl (8.5-10.1); Creatinine Clr Calc Pharmacy 96.6 ml/min; Est GFR (African American) 85.2 ml/min; Est GFR (Non-African American) 73.5 ml/min; Potassium 4.2 mmol/L (3.5-5.1)
[2020-12-07] MEDS: FLUTICASONE FUROATE 200MCG 14 PUFFS/INHALER INH SCH (08:42)
[2020-12-07] MEDS: BENZONATATE 100 MG CAPSULE PO SCH ×3 (08:42→20:38)
[2020-12-07] MEDS: DEXTROMETHORPHAN POLYMR COMPLX 30 MG/5 ML UDP PO PRN ×2 (08:42→20:37)
[2020-12-07] MEDS: PANTOprazole 40 MG TAB PO SCH ×2 (08:43→20:42)
[2020-12-07] MEDS: dexAMETHasone 4 MG in SYRINGE 0 ML IV SCH (08:43)
[2020-12-07] MEDS: METOPROLOL TARTRATE 25 MG TAB PO SCH ×2 (08:43→20:39)
[2020-12-07] MEDS: POTASSIUM CHLORIDE CRTAB 20 MEQ TABCR PO SCH ×2 (08:44→20:41)
[2020-12-07] MEDS: FAMOTIDINE 20 MG TAB PO SCH ×2 (08:45→20:38)
[2020-12-07] MEDS: guaiFENesin 600 MG TABCR PO SCH ×2 (08:45→20:40)
[2020-12-07] MEDS: buPROPion SR 100 MG TABCR PO SCH ×2 (08:46→20:42)
[2020-12-07] MEDS: CYANOCOBALAMIN 500 MCG TABLET (VITAMIN B-12) PO SCH (08:46)
[2020-12-07] MEDS: SENNA 8.6 MG TAB PO SCH (08:47)
[2020-12-07] MEDS: POLYETHYLENE (MIRALAX) 17 GM PACK PO SCH ×2 (08:48→20:38)
[2020-12-07] MEDS: DICLOFENAC SOD 1% GEL 100 GM TUBE EXT SCH ×2 (08:49→20:38)
[2020-12-07] MEDS: MUPIROCIN 2% OINT 22 GM TUBE EXT SCH ×2 (08:49→21:06)
[2020-12-07] MEDS ORDERED: ALBUT/IPRATROP 3MG/0.5MG NEB 3 ML VIAL NEB SCH (09:00)
[2020-12-07] MEDS: INSULIN ASPART 100 UNITS/ML 3 ML PEN SC SCH ×4 (09:33→22:35)
[2020-12-07] MEDS: INSULIN HUMAN NPH SC SCH (09:33)
[2020-12-07] MEDS: LIDOCAINE 5% 1 PATCH TD SCH (09:34)
--- NOTE | 2020-12-07 12:24 | Pharmacy Report ---
Pharmacy Glycemic Short Note 2 - Date of Service December 07, 2020 - Glycemic Short BSG Results (Last 24 hours): 12/06/20 12/06/20 12/06/20 12:22 16:41 20:27 Glucose POC Glucose 201 H 211 H 186 H 12/07/20 12/07/20 12/07/20 05:45 07:23 11:20 Glucose 104 H POC Glucose 117 H 161 H OUTPATIENT ANTIDIABETIC REGIMEN: * Basaglar 60 units HS * Ozempic 0.5mg SQ monthly * Metformin ER 1000mg PO BID * HbA1c 6.3% on 09/27/20 ASSESSMENT: 12/07 * Patients BSGs much improved with increased NPH dosing. Will continue with current regimen. Novolog CF was tightened slightly this morning . * Patient continues on dex 4 IV and is tolerating a diet. 12/05 * Patient fasting BSG trending up, will monitor. Post prandials [phone] yesterday. Will increase NPH by ~10% and tighten CF. * Today's lunch BSG elevated at 252. However this may be falsely elevated to some extent given only 2 hours between AM NovoLog and lunch BSG draw. Will monitor today's trend before making any further changes * Patient continues on steroids and is tolerating a diet. 12/04 * BSGs [phone] mg/dL with 96 units of insulin on board * Fasting 111 mg/dL this morning, continue NPH with dexamethasone * Carb ratio tightened to 3 yesterday, improved lunch BSG today, will keep same for now 12/03 * Patient's BSGs yesterday were [phone] mg/dL. * Patient received 100 units of insulin (44 units of basal and 56 units of bolus). * Fasting BSG today was 104 mg/dL. * Continue to hold Lantus. * Dexamethasone continued today with a decreased dose of 4 mg. Since NPH was not sufficient with dexamethasone 6 mg, this dose will probably be sufficient with less dexamethasone so continue with NPH 44 units. * Continue aggressive Novolog due to hyperglycemia with steroids. 12/01 * Dex day 13 * AM fasting 78 mg/dL, will continue to hold additional basal, continue NPH with steroid in the morning * BSGs stable 84-171 mg/dL yesterday. Will continue current parameters 11/30 * Stressors stable - dexamethasone day of * AM fasting BSG below goal range - will continue NPH but discontinue Lantus * Post-prandial BSG's mildly elevated x2 yesterday, but good today at lunch. Will keep for now. May increase NPH slightly tomorrow if AM fasting BSG is >100 mg/dL 11/29 * Stressors stable * AM fasting BSG below goal range - will continue NPH but reduce Lantus * Post-prandial BSG's elevated yesterday. Will tighten CHO ratio again 11/28 * Stressors stable * AM fasting BSG in range - no change to basal insulin * PO intake increased yesterday and was associated with increased post-prandial BSG's despite tightening of CHO ratio at lunch. Will tighten further and also tighten correction factor PLAN FOR INPATIENT GLYCEMIC CONTROL: * Hold outpatient Metformin and Ozempic diabetes medications * Basal insulin * NPH 54 units SQ daily with IV Dexamethasone * Bolus insulin * NovoLog per scale ACHS or Q6hrs while NPO * Goal Range: Low 110 mg/dL - High 140 mg/dL * Correction Factor: 10 mg/dL/unit * Nutritional / Prandial insulin per carb ratio of 1 unit per 3 grams CHO consumed PLAN FOR DISCHARGE: * A1c 6.3% at goal. Continue home regimen assuming frequent hypoglycemia as an outpatient is not occurring and assuming no contraindications exist at discharge
[2020-12-07] MEDS: ACETAMINOPHEN 325 MG TAB PO PRN ×2 (12:36→20:37)
[2020-12-07] MEDS: cefTRIAXone SODIUM 2,000 MG in DEXTROSE 5% 50 ML IV SCH (16:49)
--- NOTE | 2020-12-07 17:46 | Hospitalist Progress Note ---
Date of Service December 07, 2020 Assessment & Plan (1) Right lower quadrant abdominal pain: Plan: This is now coalesced into a large retroperitoneal bleed 19 x [address] scan from 12/06/2020. Hemoglobin did drop making his acute blood loss anemia from 12.9 g to 7.3 g. Patient consented for 2 units packed red blood cells. Patient had enoxaparin stopped on the aspirin stopped on the HGB remains stable after 2 units, abdominal binder is suggested and placed. Pt is uncomfortable. (2) Pneumonia due to 2019 novel coronavirus: Plan: SEVERE COVID pneumonia, hospitalized since 11/18/20, Covid responses continue to improve now on 3-5 L nasal cannula improving oxygen requirements able to come off respiratory isolation likely will need rehab, extreme exertional fatigue Day #14 of baricitinib, finished Day #16 of IV dexamethasone, decreased to 4mg IV on 12/03, would taper slowly, very sensitive Completed 5-day course of Remdesivir. Procal x 2 both negative during the stay; abx deferred. CRP initially high but improved with steroids/baricitinib. Continue aggressive pulmonary toilet. Nebs q3 WA, helping the most with cough tessalon 200mg TID, mucinex 600mg BID, guaitussin ac q6h prn. (3) Acute kidney injury: Plan: resolved, Cr continues to improve CT scan on 12/06 shows extrinsic compression of bilateral ureters with mild hydronephrosis seen. However her creatinine did improve with cessation of diuretic therapy which was initially being used for her Covid pneumonia. Creatinine is now come down to 1.09 from 1.5. Watchful waiting given concern for expansion of retroperitoneal mass affecting ureteral drainage. Her postobstructive change from her urine being retained in her bladder has been relieved with Houston catheter (4) Acute blood loss anemia: Plan: Acute blood loss anemia from abdominal musculature hematoma and large retroperitoneal hematoma this likely occurred due to coughing and abdominal wall stressors while being on anticoagulation of Lovenox 0.5 mg/kg subcu twice daily and aspirin subsequently held (5) Constipation: Plan: senna + miralax no obstruction or ileus on KUB 11/29 Resolved constipation (6) Acute respiratory failure with hypoxia: Plan: Resolving daily BIPAP HS weaning to lower levels of oxygen (7) Type 2 diabetes mellitus with insulin therapy: Plan: Glycemic recs appreciated from the pharmacy team. Glycemic management appears to be much improved Cont NPH, lantus, and novolog. HbA1c <6.5% in September. Control adequate, monitor for hypoglycemia and hyperglycemia, no episodes the past 24 hours (8) Vomiting: Plan: Resolved no additional vomiting felt secondary to constipatin, on imaging no obstruction or ileus, needs to move bowels Miralax TID, can try suppository, on Senna advance to low fiber diet (9) Hyponatremia: Plan: resolved (10) Morbid obesity: Plan: risk factor for covid morbidity BMI has improved s/p diuresis BMI high 30s (11) Asthma: Plan: exacerbation resolved - 2nd to COVID-19 infection. 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 no wheezing at all this week cough has improved with increasing frequency of nebs to q3h at her request cont steroids, pulmonary toilet. see above. follows w/ Dr Sina Estrada. Dr Estrada called patient the prior week for assurance (12) Hypertension: Plan: cont metoprolol. hold aldactone. (13) GERD (gastroesophageal reflux disease): Plan: Protonix IV, change to BID with vomiting H2 susan. (14) Atrial flutter, paroxysmal: Plan: History of. No a.fib/flutter while here. (15) DVT prophylaxis: Plan: Patient is sequential compression devices. Due to significance of hematoma and anemia. High risk of VTE given severity of COVID illness, famHx of VTE, etc. (16) Leukocytosis: Plan: Significant leukocytosis with dysuria and hematuria. Will cover with ceftriaxone urine cultures obtained for concern with urinary tract infection Plan: wean oxygen as tolerated work towards rehab at end of the week, PT/OT consulted discuss with infection control, might be suitable to come off airborne isolation in the next few days Admission and Anticipated Discharge Date Admission Date: November 18, 2020 Subjective Pt feels improved, she has stable vital signs and blood counts and examination. She is able to come off of isolation precautions 12/07/20 Given her leukocytosis urinary changes she was started on Rocephin. uti shows gram negative, > 100,000 Patient was unable to urinate well Houston catheter remains Review of Systems Review of Systems: Moderate to severe distress and fatigue no headache, no visual changes no speech or swallowing issues no chest pain, pressure or palpitations Remains with exertional shortness of breath, nonproductive cough Bilateral lower quadrant abdominal pain, worse to exam and remove No complaints of dysuria, does have mild hematuria but no frequency no focal joint pain or swelling no back pain, CVA tenderness or radicular pain Bilateral flank bruising is expanding no focal signs of weakness or numbness or altered sensation Patient is tearful and appears depressed Physical Exam Physical Exam: The patient appeared well nourished and normally developed. Mild distress with abdominal pain Vital signs as documented. Head exam is normocephalic atraumatic Neck is without JVD, thyromegaly, or carotid bruits. Lungs continue with faint bibasilar crackles Cardiac exam, Rhythm is regular.. No murmurs, rubs or gallops. Abdominal exam reveals hyperactive bowel sounds, bilateral lower quadrant pain bruising on the bilateral flanks Extremities are nonedematous and both pedal pulses are present Neurologic exam is alert and oriented, no focal loss of strength or sensation Skin is with increasing bruising on her sides consistent with retroperitoneal bleed Psychologically is without concerns for anxiety or depression Results & Data Results & Data ([facility]) Vital Signs (Past 12 Hours) Vital Signs Temp Pulse Pulse Pulse Resp BP Pulse Ox 12/07/20 15:17 98.1 F 81 18 115/70 98 12/07/20 15:09 80 19 96 12/07/20 11:47 80 21 100 12/07/20 11:21 99.3 F 79 25 H 114/67 100 12/07/20 08:21 77 22 97 12/07/20 08:00 73 12/07/20 07:24 98.2 F 73 19 108/67 97 PG Care Time/CCT Total # of Minutes Spent Total Time Spent with Patient: Total time spent is greater than 50% in coordination of care (as documented) at patient's floor/unit and/or counseling patient: Coding Level of Care Code 10533 Subseq Hosp Care Lvl 2 Diagnoses Right lower quadrant abdominal pain R10.31 Pneumonia due to 2019 novel coronavirus U07.1; J12.82 Acute kidney injury N17.9 Acute blood loss anemia D62 Constipation K59.00 Acute respiratory failure with hypoxia J96.01 Type 2 diabetes mellitus with insulin therapy E11.9; Z79.4 Vomiting R11.10 Hyponatremia E87.1 Morbid obesity E66.01 Asthma J45.909 Hypertension I10 GERD (gastroesophageal reflux disease) K21.9 Atrial flutter, paroxysmal I48.92 DVT prophylaxis Z29.9 Leukocytosis D72.829
[2020-12-07] MEDS: LORazepam 0.5 MG TAB PO PRN (20:37)
[2020-12-07] MEDS: MONTELUKAST SODIUM 10 MG TABLET PO SCH (20:42)
[2020-12-08] MEDS: ALBUT/IPRATROP 3MG/0.5MG NEB 3 ML VIAL NEB SCH ×6 (03:47→22:32)
[2020-12-08] MEDS: SUMAtriptan succinate 100 MG TAB PO PRN (05:38)
[2020-12-08 07:42] LABS: Hematocrit (blood only) 27.9 % (37-47); Hemoglobin 9.1 g/dL (12.0-16.0); Mean Corpuscular Hemoglobin 29.7 pg (25-34); Mean Corpuscular Hgb Conc 32.6 g/dL (32-36); Mean Corpuscular Volume 91.2 fL (80-100); Mean Platelet Volume 9.4 fL (7.4-10.4); Nucleated RBC # (auto) 0.49 K/uL (0-0); Platelet Count 254 K/uL (130-400); RDW Coefficient of Variation 16.6 % (11.5-14.5); RDW Standard Deviation 51.5 fL (36.4-46.3); Red Blood Count 3.06 M/uL (4.2-5.4)
[2020-12-08 07:45] LABS: Albumin Level 2.6 gm/dl (3.4-5.0); Bilirubin Direct 0.2 mg/dl (0-0.2); Bilirubin,Total 0.8 mg/dl (0.2-1); Total Protein 6.7 gm/dl (6.4-8.2)
[2020-12-08] MEDS: INSULIN ASPART 100 UNITS/ML 3 ML PEN SC SCH ×4 (09:12→21:22)
[2020-12-08] MEDS: ACETAMINOPHEN 325 MG TAB PO PRN ×2 (09:12→21:14)
[2020-12-08] MEDS: MUPIROCIN 2% OINT 22 GM TUBE EXT SCH ×2 (09:12→20:12)
[2020-12-08] MEDS: BENZONATATE 100 MG CAPSULE PO SCH ×3 (09:13→20:11)
[2020-12-08] MEDS: POTASSIUM CHLORIDE CRTAB 20 MEQ TABCR PO SCH ×2 (09:13→21:14)
[2020-12-08] MEDS: guaiFENesin 600 MG TABCR PO SCH ×2 (09:13→21:14)
[2020-12-08] MEDS: LORazepam 0.5 MG TAB PO PRN ×2 (09:13→21:14)
[2020-12-08] MEDS: CYANOCOBALAMIN 500 MCG TABLET (VITAMIN B-12) PO SCH (09:14)
[2020-12-08] MEDS: LIDOCAINE 5% 1 PATCH TD SCH (09:14)
[2020-12-08] MEDS: PANTOprazole 40 MG TAB PO SCH ×2 (09:14→21:14)
[2020-12-08] MEDS: SENNA 8.6 MG TAB PO SCH (09:14)
[2020-12-08] MEDS: buPROPion SR 100 MG TABCR PO SCH ×2 (09:15→21:13)
[2020-12-08] MEDS: FAMOTIDINE 20 MG TAB PO SCH ×2 (09:15→20:10)
[2020-12-08] MEDS: POLYETHYLENE (MIRALAX) 17 GM PACK PO SCH ×2 (09:15→21:16)
[2020-12-08] MEDS: METOPROLOL TARTRATE 25 MG TAB PO SCH ×2 (09:16→21:15)
[2020-12-08] MEDS: dexAMETHasone 4 MG in SYRINGE 0 ML IV SCH (09:16)
[2020-12-08] MEDS: DICLOFENAC SOD 1% GEL 100 GM TUBE EXT SCH ×2 (09:17→20:12)
[2020-12-08] MEDS: FLUTICASONE FUROATE 200MCG 14 PUFFS/INHALER INH SCH (09:17)
[2020-12-08] MEDS: INSULIN HUMAN NPH SC SCH (09:46)
[2020-12-08] MEDS ORDERED: OPTIRAY 320 125ml IV ONE (11:13)
--- NOTE | 2020-12-08 11:26 | CT Scan Report ---
CT ANGIOGRAM OF THE CHEST CLINICAL HISTORY: Dyspnea. Covid. COMPARISON STUDY: Chest x-ray dated 12/03/2020. TECHNIQUE: Following the IV administration of 119 cc of Optiray 320, CT angiogram of the chest was pe rformed from the upper abdomen to the thoracic inlet utilizing the pulmonary embolus protocol. Images are reviewed in the axial, sagittal, and coronal planes. 3-D MIPS images are created and assessed. I V contrast was administered without complication. A dose lowering technique was utilized adhering to the principles of ALARA. The examination is degraded by motion artifact. CT DOSE: 650.49 mGycm FINDINGS: Thyroid: Imaged portions of the thyroid gland are normal in size and attenuation. Thoracic aorta: The thoracic aorta is normal in caliber and demonstrates standard 3-vessel arch anato my. No dissection is seen. Pulmonary vasculature: The pulmonary trunk is dilated measuring 3.4 cm in diameter. This suggests pul monary artery hypertension. There are no filling defects identified in main, lobar, or proximal segme ntal pulmonary branches to suggest pulmonary embolus. Evaluation of the peripheral branches is signif icantly degraded by motion artifact. Heart: The heart is mildly enlarged and without pericardial effusion. Lungs and pleural spaces: Extensive multifocal airspace consolidation is seen throughout both lungs. No pleural effusion is identified. The trachea and central airways appear clear. There is no pneumoth orax. Mediastinum: Prominent mediastinal lymph nodes measure up to 10 mm in short axis. Marci: No hilar adenopathy is identified. Axillae: There is no axillary lymphadenopathy. Upper abdomen: There is a small hiatal hernia. Partially visualized upper abdominal viscera is within normal limits. Skeletal structures: No lytic or blastic bony lesions are seen. IMPRESSION: 1. Motion compromised examination. 2. There is no evidence of central pulmonary embolus in the main, lobar, or proximal segmental pulmon toney arteries. 3. Multifocal airspace consolidation is consistent with the reported history of viral pneumonia. Radi ographic follow-up to resolution is recommended. ACT 112: Negative or not required by law. Electronically signed by: Jasiel Cooley M.D. 12/08/2020 11:24 AM
--- NOTE | 2020-12-08 13:55 | Pharmacy Report ---
Pharmacy Glycemic Short Note 2 - Date of Service December 08, 2020 - Glycemic Short BSG Results (Last 24 hours): 12/07/20 12/07/20 12/08/20 16:11 20:52 08:00 POC Glucose 225 H 158 H 91 12/08/20 11:24 POC Glucose 146 H OUTPATIENT ANTIDIABETIC REGIMEN: * Basaglar 60 units HS * Ozempic 0.5mg SQ monthly * Metformin ER 1000mg PO BID * HbA1c 6.3% on 09/27/20 ASSESSMENT: 12/08: * Continuing current parameters, monitor for changes 12/07 * Patients BSGs much improved with increased NPH dosing. Will continue with current regimen. Novolog CF was tightened slightly this morning . * Patient continues on dex 4 IV and is tolerating a diet. 12/05 * Patient fasting BSG trending up, will monitor. Post prandials [phone] yesterday. Will increase NPH by ~10% and tighten CF. * Today's lunch BSG elevated at 252. However this may be falsely elevated to some extent given only 2 hours between AM NovoLog and lunch BSG draw. Will monitor today's trend before making any further changes * Patient continues on steroids and is tolerating a diet. 12/04 * BSGs [phone] mg/dL with 96 units of insulin on board * Fasting 111 mg/dL this morning, continue NPH with dexamethasone * Carb ratio tightened to 3 yesterday, improved lunch BSG today, will keep same for now 12/03 * Patient's BSGs yesterday were [phone] mg/dL. * Patient received 100 units of insulin (44 units of basal and 56 units of bolus). * Fasting BSG today was 104 mg/dL. * Continue to hold Lantus. * Dexamethasone continued today with a decreased dose of 4 mg. Since NPH was not sufficient with dexamethasone 6 mg, this dose will probably be sufficient with less dexamethasone so continue with NPH 44 units. * Continue aggressive Novolog due to hyperglycemia with steroids. 12/01 * Dex day 13 * AM fasting 78 mg/dL, will continue to hold additional basal, continue NPH with steroid in the morning * BSGs stable 84-171 mg/dL yesterday. Will continue current parameters 11/30 * Stressors stable - dexamethasone day of * AM fasting BSG below goal range - will continue NPH but discontinue Lantus * Post-prandial BSG's mildly elevated x2 yesterday, but good today at lunch. Will keep for now. May increase NPH slightly tomorrow if AM fasting BSG is >100 mg/dL 11/29 * Stressors stable * AM fasting BSG below goal range - will continue NPH but reduce Lantus * Post-prandial BSG's elevated yesterday. Will tighten CHO ratio again 11/28 * Stressors stable * AM fasting BSG in range - no change to basal insulin * PO intake increased yesterday and was associated with increased post-prandial BSG's despite tightening of CHO ratio at lunch. Will tighten further and also tighten correction factor PLAN FOR INPATIENT GLYCEMIC CONTROL: * Hold outpatient Metformin and Ozempic diabetes medications * Basal insulin * NPH 54 units SQ daily with IV Dexamethasone * Bolus insulin * NovoLog per scale ACHS or Q6hrs while NPO * Goal Range: Low 110 mg/dL - High 140 mg/dL * Correction Factor: 10 mg/dL/unit * Nutritional / Prandial insulin per carb ratio of 1 unit per 3 grams CHO consumed PLAN FOR DISCHARGE: * A1c 6.3% at goal. Continue home regimen assuming frequent hypoglycemia as an outpatient is not occurring and assuming no contraindications exist at discharge
[2020-12-08] MEDS: cefTRIAXone SODIUM 2,000 MG in DEXTROSE 5% 50 ML IV SCH (17:14)
--- NOTE | 2020-12-08 18:42 | Hospitalist Progress Note ---
Date of Service December 08, 2020 Assessment & Plan (1) Right lower quadrant abdominal pain: Plan: This is now coalesced into a large retroperitoneal bleed 19 x [address] scan from 12/06/2020. Hemoglobin did drop making his acute blood loss anemia from 12.9 g to 7.3 g. Patient transfused 2 units packed red blood cells. Patient had enoxaparin stopped on the aspirin stopped on the HGB remains stable after 2 units, abdominal binder is suggested and placed. Pt is uncomfortable. (2) Pneumonia due to 2019 novel coronavirus: Plan: SEVERE COVID pneumonia, hospitalized since 11/18/20, Covid responses continue to improve now on 3-5 L nasal cannula improving oxygen requirements able to come off respiratory isolation likely will need rehab, extreme exertional fatigue Day #14 of baricitinib, finished Day #16 of IV dexamethasone, decreased to 4mg IV on 12/03, would taper slowly, very sensitive Completed 5-day course of Remdesivir. Procal x 2 both negative during the stay; abx deferred. CRP initially high but improved with steroids/baricitinib. Continue aggressive pulmonary toilet. Nebs q3 WA, helping the most with cough tessalon 200mg TID, mucinex 600mg BID, guaitussin ac q6h prn. felt more short of breath and had some increased oxygen requirements, CTA negative for PE 12/08/20 remains on scd (3) UTI (urinary tract infection): Plan: Klebsiella and proteus uti found, on rocephin which is good for sensitiities complete 7 days as is a catheter associated uti (4) Acute kidney injury: Plan: resolved, Cr continues to improve CT scan on 12/06 shows extrinsic compression of bilateral ureters with mild hydronephrosis seen. However her creatinine did improve with cessation of diuretic therapy which was initially being used for her Covid pneumonia. Creatinine is now come down to 1.09 from 1.5. Watchful waiting given concern for expansion of retroperitoneal mass affecting ureteral drainage. Her postobstructive change from her urine being retained in her bladder has been relieved with Meyer catheter (5) Acute blood loss anemia: Plan: Acute blood loss anemia from abdominal musculature hematoma and large retroperitoneal hematoma this likely occurred due to coughing and abdominal wall stressors while being on anticoagulation of Lovenox 0.5 mg/kg subcu twice daily and aspirin subsequently held (6) Constipation: Plan: senna + miralax no obstruction or ileus on KUB 11/29 Resolved constipation (7) Acute respiratory failure with hypoxia: Plan: Resolving daily BIPAP HS weaning to lower levels of oxygen (8) Type 2 diabetes mellitus with insulin therapy: Plan: Glycemic recs appreciated from the pharmacy team. Glycemic management appears to be much improved Cont NPH, lantus, and novolog. HbA1c <6.5% in September. Control adequate, monitor for hypoglycemia and hyperglycemia, no episodes the past 24 hours (9) Vomiting: Plan: Resolved no additional vomiting felt secondary to constipatin, on imaging no obstruction or ileus, needs to move bowels Miralax TID, can try suppository, on Senna advance to low fiber diet (10) Hyponatremia: Plan: resolved (11) Morbid obesity: Plan: risk factor for covid morbidity BMI has improved s/p diuresis BMI high 30s (12) Asthma: Plan: exacerbation resolved - 2nd to COVID-19 infection. 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 no wheezing at all this week cough has improved with increasing frequency of nebs to q3h at her request cont steroids, pulmonary toilet. see above. follows w/ Dr Sina Estrada. Dr Estrada called patient the prior week for assurance (13) Hypertension: Plan: cont metoprolol. hold aldactone. (14) GERD (gastroesophageal reflux disease): Plan: Protonix BID with vomiting H2 susan. (15) Atrial flutter, paroxysmal: Plan: History of. No a.fib/flutter while here. (16) DVT prophylaxis: Plan: Patient is sequential compression devices. Due to significance of hematoma and anemia. High risk of VTE given severity of COVID illness, famHx of VTE, etc. Admission and Anticipated Discharge Date Admission Date: November 18, 2020 Subjective Pt feels improved, she c/o feeling short of breath with a slight increase in need of oxygen supplementation . She is able to come off of isolation precautions 12/07/20 Given her leukocytosis urinary changes she was started on Rocephin. uti shows Klebsiella and proteus sensitive to rocephin Patient was unable to urinate well Meyer catheter remains Review of Systems Review of Systems: Moderate to severe distress and fatigue no headache, no visual changes no speech or swallowing issues no chest pain, pressure or palpitations Remains with exertional shortness of breath, nonproductive cough improving abdominal pain No complaints of dysuria, does have meyer no focal joint pain or swelling no back pain, CVA tenderness or radicular pain Bilateral flank bruising no focal signs of weakness or numbness or altered sensation Patient is tearful and appears depressed Physical Exam Physical Exam: The patient appeared well nourished and normally developed. Mild distress with abdominal pain Vital signs as documented. Head exam is normocephalic atraumatic Neck is without JVD, thyromegaly, or carotid bruits. Lungs continue with faint bibasilar crackles Cardiac exam, Rhythm is regular.. No murmurs, rubs or gallops. Abdominal exam reveals hyperactive bowel sounds, bilateral lower quadrant pain bruising on the bilateral flanks Extremities are nonedematous and both pedal pulses are present Neurologic exam is alert and oriented, no focal loss of strength or sensation Skin is with increasing bruising on her sides consistent with retroperitoneal bleed Psychologically is without concerns for anxiety or depression Results & Data Results & Data ([facility]) Vital Signs (Past 12 Hours) Vital Signs Temp Pulse Pulse Pulse Resp BP Pulse Ox 12/08/20 15:58 80 18 93 12/08/20 15:09 98.8 F 81 18 126/82 92 12/08/20 11:48 99.1 F 78 23 119/73 91 12/08/20 11:26 82 20 95 12/08/20 08:00 85 12/08/20 07:58 98.6 F 86 24 121/83 92 12/08/20 07:26 83 20 93 PG Care Time/CCT Total # of Minutes Spent Total Time Spent with Patient: Total time spent is greater than 50% in coordination of care (as documented) at patient's floor/unit and/or counseling patient: Coding Level of Care Code 74676 Subseq Hosp Care Lvl 3 Diagnoses Right lower quadrant abdominal pain R10.31 Pneumonia due to 2019 novel coronavirus U07.1; J12.82 Acute kidney injury N17.9 Acute blood loss anemia D62 Constipation K59.00 Acute respiratory failure with hypoxia J96.01 Type 2 diabetes mellitus with insulin therapy E11.9; Z79.4 Vomiting R11.10 Hyponatremia E87.1 Morbid obesity E66.01 Asthma J45.909 Hypertension I10 GERD (gastroesophageal reflux disease) K21.9 Atrial flutter, paroxysmal I48.92 DVT prophylaxis Z29.9 UTI (urinary tract infection) N39.0
[2020-12-08] MEDS: DEXTROMETHORPHAN POLYMR COMPLX 30 MG/5 ML UDP PO PRN (20:14)
[2020-12-08] MEDS: MONTELUKAST SODIUM 10 MG TABLET PO SCH (21:13)
[2020-12-09] MEDS: DEXTROMETHORPHAN POLYMR COMPLX 30 MG/5 ML UDP PO PRN ×2 (03:39→13:34)
[2020-12-09] MEDS: ALBUT/IPRATROP 3MG/0.5MG NEB 3 ML VIAL NEB SCH ×6 (03:49→22:12)
[2020-12-09] MEDS: BENZONATATE 100 MG CAPSULE PO SCH ×3 (09:12→21:23)
[2020-12-09] MEDS: buPROPion SR 100 MG TABCR PO SCH ×2 (09:13→21:22)
[2020-12-09] MEDS: LIDOCAINE 5% 1 PATCH TD SCH (09:14)
[2020-12-09] MEDS: DICLOFENAC SOD 1% GEL 100 GM TUBE EXT SCH ×2 (09:14→21:22)
[2020-12-09] MEDS: guaiFENesin 600 MG TABCR PO SCH ×2 (09:14→21:23)
[2020-12-09] MEDS: METOPROLOL TARTRATE 25 MG TAB PO SCH ×2 (09:15→21:25)
[2020-12-09] MEDS: PANTOprazole 40 MG TAB PO SCH ×2 (09:16→21:27)
[2020-12-09] MEDS: INSULIN HUMAN NPH SC SCH (09:18)
[2020-12-09] MEDS: INSULIN ASPART 100 UNITS/ML 3 ML PEN SC SCH ×4 (09:19→21:05)
[2020-12-09] MEDS: POTASSIUM CHLORIDE CRTAB 20 MEQ TABCR PO SCH ×2 (09:25→21:26)
[2020-12-09] MEDS: FAMOTIDINE 20 MG TAB PO SCH ×2 (09:25→21:34)
[2020-12-09] MEDS: LORazepam 0.5 MG TAB PO PRN ×2 (09:29→21:34)
[2020-12-09] MEDS: POLYETHYLENE (MIRALAX) 17 GM PACK PO SCH ×2 (09:29→21:26)
[2020-12-09 09:30] LABS: Hematocrit (blood only) 28.7 % (37-47); Mean Corpuscular Hemoglobin 29.6 pg (25-34); Mean Corpuscular Hgb Conc 31.4 g/dL (32-36); Mean Corpuscular Volume 94.4 fL (80-100); Mean Platelet Volume 8.9 fL (7.4-10.4); Nucleated RBC # (auto) 0.48 K/uL (0-0); Nucleated RBC % (auto) 3.2 %; Platelet Count 249 K/uL (130-400); RDW Coefficient of Variation 17.2 % (11.5-14.5); RDW Standard Deviation 53.9 fL (36.4-46.3); Red Blood Count 3.04 M/uL (4.2-5.4)
[2020-12-09] MEDS: dexAMETHasone 4 MG in SYRINGE 0 ML IV SCH (09:33)
[2020-12-09] MEDS: MUPIROCIN 2% OINT 22 GM TUBE EXT SCH ×2 (09:37→21:37)
[2020-12-09] MEDS: FLUTICASONE FUROATE 200MCG 14 PUFFS/INHALER INH SCH (09:38)
[2020-12-09 09:59] LABS: BUN Creatinine Ratio 19.8 (10-20); Calcium 9.2 mg/dl (8.5-10.1); Est GFR (African American) 98.4 ml/min; Est GFR (Non-African American) 84.9 ml/min; Potassium 3.4 mmol/L (3.5-5.1)
[2020-12-09] MEDS ORDERED: ALBUTEROL 0.083% NEBU SOLN 3 ML VIAL NEB STA (10:17)
[2020-12-09] MEDS ORDERED: ALBUTEROL 0.083% NEBU SOLN 3 ML VIAL NEB PRN (10:17)
[2020-12-09] MEDS: ALBUTEROL 0.083% NEBU SOLN 3 ML VIAL NEB PRN (10:27)
[2020-12-09] MEDS: SENNA 8.6 MG TAB PO SCH (10:40)
[2020-12-09] MEDS: CYANOCOBALAMIN 500 MCG TABLET (VITAMIN B-12) PO SCH (10:40)
--- NOTE | 2020-12-09 10:54 | XRay Report ---
XR chest 1V portable CLINICAL HISTORY: Shortness of breath. COMPARISON STUDY: Chest radiograph December 03, 2020. Chest CT December 08, 2020 FINDINGS: Lung volumes are diminished. This is unchanged. Cardiomegaly is noted. There is no pneumoth orax or pleural effusion. Extensive bilateral airspace opacities similar to prior chest CT. IMPRESSION: No significant change in extensive bilateral airspace opacities suggestive of viral pneum onia. ACT 112: Negative or not required by law. Electronically signed by: Edson Alan M.D. 12/09/2020 10:53 AM
[2020-12-09] MEDS: cefTRIAXone SODIUM 2,000 MG in DEXTROSE 5% 50 ML IV SCH (14:14)
--- NOTE | 2020-12-09 18:37 | Hospitalist Progress Note ---
Date of Service December 09, 2020 Assessment & Plan (1) Acute respiratory failure with hypoxia: Plan: Pt has had a setback in oxygen tapering, did have CTA 12/08 without PE, cxr with persistent changes, does have asthma will have scheduled nebs and continue steroids (2) Pneumonia due to 2019 novel coronavirus: Plan: SEVERE COVID pneumonia, hospitalized since 11/18/20, Covid able to come off respiratory isolation likely will need rehab, extreme exertional fatigue Day #14 of baricitinib, finished Day #16 of IV dexamethasone, decreased to 4mg IV on 12/03, would taper slowly, very sensitive Completed 5-day course of Remdesivir. Procal x 2 both negative during the stay; abx deferred. CRP initially high but improved with steroids/baricitinib. Continue aggressive pulmonary toilet. Nebs WA, helping the most with cough tessalon 200mg TID, mucinex 600mg BID, guaitussin ac q6h prn. felt more short of breath and had some increased oxygen requirements, CTA negative for PE 12/08/20 remains on scd, starting heparin cautiously, restarting lasix and continue steroids (3) Asthma: Plan: exacerbation currently -worseing symptoms of COVID-19 infection. 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 albuterol nebulizers and steroids follows w/ Dr Sina Estrada. Dr Estrada called patient the prior week for assurance (4) UTI (urinary tract infection): Plan: Klebsiella and proteus uti found, on rocephin which is good for sensitiities complete 7 days as is a catheter associated uti (5) Right lower quadrant abdominal pain: Plan: This is now coalesced into a large retroperitoneal bleed 19 x [address] scan from 12/06/2020. Hemoglobin did drop making his acute blood loss anemia from 12.9 g to 7.3 g. Patient transfused 2 units packed red blood cells. Patient had enoxaparin stopped on the aspirin stopped on the HGB remains stable after 2 units, Pt is uncomfortable. (6) Acute kidney injury: Plan: resolved, Cr continues to improve CT scan on 12/06 shows extrinsic compression of bilateral ureters with mild hydronephrosis seen. However her creatinine did improve with cessation of diuretic therapy which was initially being used for her Covid pneumonia. Creatinine is now come down to 1.09 from 1.5. Watchful waiting given concern for expansion of retroperitoneal mass affecting ureteral drainage. Her postobstructive change from her urine being retained in her bladder has been relieved with Meyer catheter (7) Acute blood loss anemia: Plan: Acute blood loss anemia from abdominal musculature hematoma and large retroperitoneal hematoma this likely occurred due to coughing and abdominal wall stressors while being on anticoagulation of Lovenox 0.5 mg/kg subcu twice daily and aspirin subsequently held, restart heparin sc 12/09 evening (8) Constipation: Plan: senna + miralax no obstruction or ileus on KUB 11/29 Resolved constipation (9) Type 2 diabetes mellitus with insulin therapy: Plan: Glycemic recs appreciated from the pharmacy team. Glycemic management appears to be much improved Cont NPH, lantus, and novolog. HbA1c <6.5% in September. Control adequate, monitor for hypoglycemia and hyperglycemia, no episodes the past 24 hours (10) Vomiting: Plan: Resolved no additional vomiting felt secondary to constipatin, on imaging no obstruction or ileus, needs to move bowels Miralax TID, can try suppository, on Senna advance to low fiber diet (11) Hyponatremia: Plan: resolved (12) Morbid obesity: Plan: risk factor for covid morbidity BMI has improved s/p diuresis BMI high 30s (13) Hypertension: Plan: cont metoprolol. hold aldactone. (14) GERD (gastroesophageal reflux disease): Plan: Protonix BID with vomiting H2 susan. (15) Atrial flutter, paroxysmal: Plan: History of. No a.fib/flutter while here. (16) DVT prophylaxis: Plan: Patient is sequential compression devices. restart heparin sc High risk of VTE given severity of COVID illness, famHx of VTE, etc. Admission and Anticipated Discharge Date Admission Date: November 18, 2020 Subjective PT was having increased shortness of breath and oxygen need, she did have CXR with presistent changes and was given albuterol, CTA 12/08 neg for PE, likely persistent changes of covid but will attempt to restart diuresis that was stopped when had retroperitoneal bleed, uti shows Klebsiella and proteus sensitive to rocephin Patient was unable to urinate well Meyer catheter remains Review of Systems Review of Systems: Moderate respiratory distress and fatigue no headache, no visual changes no speech or swallowing issues no chest pain, pressure or palpitations Remains with exertional shortness of breath, nonproductive cough, lungs feel tight improving abdominal pain No complaints of dysuria, does have meyer no focal joint pain or swelling no back pain, CVA tenderness or radicular pain Bilateral flank bruising no focal signs of weakness or numbness or altered sensation Patient occasionaly tearful and appears depressed Physical Exam Physical Exam: The patient appeared well nourished and normally developed. Mild distress with abdominal pain Vital signs as documented. Head exam is normocephalic atraumatic Neck is without JVD, thyromegaly, or carotid bruits. Lungs continue with faint bibasilar crackles, faint expiratory wheezes Cardiac exam, Rhythm is regular.. No murmurs, rubs or gallops. Abdominal exam reveals hyperactive bowel sounds, bilateral lower quadrant pain bruising on the bilateral flanks Extremities are nonedematous and both pedal pulses are present, no swelling or chords Neurologic exam is alert and oriented, no focal loss of strength or sensation Skin is with increasing bruising on her sides consistent with retroperitoneal bleed Psychologically is without concerns for anxiety or depression Results & Data Results & Data ([facility]) Vital Signs (Past 12 Hours) Vital Signs Temp Pulse Resp BP Pulse Ox 12/09/20 15:46 98.4 F 84 24 119/76 91 12/09/20 15:00 90 22 94 12/09/20 10:27 84 20 95 12/09/20 08:35 89 L 12/09/20 08:34 7 L 12/09/20 07:53 98.2 F 79 20 120/76 89 L 12/09/20 07:51 76 20 89 L PG Care Time/CCT Total # of Minutes Spent Total Time Spent with Patient: Total time spent is greater than 50% in coordination of care (as documented) at patient's floor/unit and/or counseling patient: Coding Level of Care Code 69868 Subseq Hosp Care Lvl 3 Diagnoses Right lower quadrant abdominal pain R10.31 Pneumonia due to 2019 novel coronavirus U07.1; J12.82 UTI (urinary tract infection) N39.0 Acute kidney injury N17.9 Acute blood loss anemia D62 Constipation K59.00 Acute respiratory failure with hypoxia J96.01 Type 2 diabetes mellitus with insulin therapy E11.9; Z79.4 Vomiting R11.10 Hyponatremia E87.1 Morbid obesity E66.01 Asthma J45.909 Hypertension I10 GERD (gastroesophageal reflux disease) K21.9 Atrial flutter, paroxysmal I48.92 DVT prophylaxis Z29.9
[2020-12-09] MEDS ORDERED: FUROSEMIDE 20 MG in SYRINGE 0 ML IV ONE (18:45)
[2020-12-09] MEDS: MONTELUKAST SODIUM 10 MG TABLET PO SCH (21:25)
[2020-12-09] MEDS: methylPREDNISolone 40 MG in SYRINGE 0 ML IV SCH (21:30)
[2020-12-09] MEDS: HEPARIN SOD 5,000 UNIT/0.5 ML VIAL SQ SCH (21:36)
[2020-12-10] MEDS: ALBUT/IPRATROP 3MG/0.5MG NEB 3 ML VIAL NEB SCH ×6 (02:55→22:27)
[2020-12-10 06:12] LABS: Hematocrit (blood only) 29.1 % (37-47); Hemoglobin 9.2 g/dL (12.0-16.0); Mean Corpuscular Hemoglobin 29.8 pg (25-34); Mean Corpuscular Hgb Conc 31.6 g/dL (32-36); Mean Corpuscular Volume 94.2 fL (80-100); Nucleated RBC # (auto) 0.24 K/uL (0-0); Nucleated RBC % (auto) 1.7 %; Platelet Count 242 K/uL (130-400); RDW Coefficient of Variation 17.8 % (11.5-14.5); RDW Standard Deviation 53.9 fL (36.4-46.3); Red Blood Count 3.09 M/uL (4.2-5.4); White Blood Count 14.37 K/uL (4.8-10.8)
[2020-12-10 06:31] LABS: Calcium 9.3 mg/dl (8.5-10.1); Creatinine Clr Calc Pharmacy 112.1 ml/min; Est GFR (African American) 106.5 ml/min; Est GFR (Non-African American) 91.8 ml/min; Magnesium 2.3 mg/dl (1.8-2.4); Potassium 4.8 mmol/L (3.5-5.1)
[2020-12-10] MEDS: methylPREDNISolone 40 MG in SYRINGE 0 ML IV SCH ×3 (06:31→21:01)
[2020-12-10] MEDS: DEXTROMETHORPHAN POLYMR COMPLX 30 MG/5 ML UDP PO PRN ×2 (06:36→18:22)
[2020-12-10] MEDS: BENZONATATE 100 MG CAPSULE PO SCH ×3 (06:38→21:01)
[2020-12-10] MEDS ORDERED: INSULIN HUMAN NPH SC SCH ×2 (08:30→16:30)
[2020-12-10] MEDS: POLYETHYLENE (MIRALAX) 17 GM PACK PO SCH ×2 (09:22→21:02)
[2020-12-10] MEDS: FAMOTIDINE 20 MG TAB PO SCH ×2 (09:23→21:01)
[2020-12-10] MEDS: PANTOprazole 40 MG TAB PO SCH ×2 (09:23→21:00)
[2020-12-10] MEDS: LORazepam 0.5 MG TAB PO PRN ×2 (09:23→18:34)
[2020-12-10] MEDS: buPROPion SR 100 MG TABCR PO SCH ×2 (09:24→21:00)
[2020-12-10] MEDS: guaiFENesin 600 MG TABCR PO SCH ×2 (09:24→21:00)
[2020-12-10] MEDS: METOPROLOL TARTRATE 25 MG TAB PO SCH ×2 (09:25→20:59)
[2020-12-10] MEDS: POTASSIUM CHLORIDE CRTAB 20 MEQ TABCR PO SCH ×2 (09:25→20:58)
[2020-12-10] MEDS: CYANOCOBALAMIN 500 MCG TABLET (VITAMIN B-12) PO SCH (09:26)
[2020-12-10] MEDS: SENNA 8.6 MG TAB PO SCH (09:26)
[2020-12-10] MEDS: FLUTICASONE FUROATE 200MCG 14 PUFFS/INHALER INH SCH (09:27)
[2020-12-10] MEDS: INSULIN HUMAN NPH SC SCH (09:32)
[2020-12-10] MEDS: INSULIN ASPART 100 UNITS/ML 3 ML PEN SC SCH ×4 (09:33→21:06)
[2020-12-10] MEDS ORDERED: ALBUTEROL 0.083% NEBU SOLN 3 ML VIAL NEB PRN (13:13)
[2020-12-10] MEDS: LIDOCAINE 5% 1 PATCH TD SCH (13:20)
[2020-12-10] MEDS: HEPARIN SOD 5,000 UNIT/0.5 ML VIAL SQ SCH ×2 (13:20→20:59)
[2020-12-10] MEDS: DICLOFENAC SOD 1% GEL 100 GM TUBE EXT SCH ×2 (13:21→21:04)
[2020-12-10] MEDS: FORMOTEROL 20 MCG/2 ML VIAL NEB SCH ×2 (13:22→19:23)
--- NOTE | 2020-12-10 13:30 | Pharmacy Report ---
Pharmacy Glycemic Short Note 2 - Date of Service December 10, 2020 - Glycemic Short BSG Results (Last 24 hours): 12/09/20 12/09/20 12/10/20 16:54 20:57 05:47 Glucose 172 H POC Glucose 204 H 127 H 12/10/20 12:50 Glucose POC Glucose 211 H OUTPATIENT ANTIDIABETIC REGIMEN: * Basaglar 60 units HS * Ozempic 0.5mg SQ monthly * Metformin ER 1000mg PO BID * HbA1c 6.3% on 09/27/20 ASSESSMENT: 12/10: * Pt received total of 96 units of insulin yesterday; 54 basal NPH in AM and 42 units bolus. * Dex IV was discontinued and Solu medrol 40 mg IV q8h was started last night at 2200. BSGs trended up to 172 (fasting this AM). * NPH dose was split into two doses; 35 units in the AM with IV solu medrol and 20 units with dinner. Will trial this today and make adjustments tomorrow. * Novolog parameters continued the same. 12/08: * Continuing current parameters, monitor for changes 12/07 * Patients BSGs much improved with increased NPH dosing. Will continue with current regimen. Novolog CF was tightened slightly this morning . * Patient continues on dex 4 IV and is tolerating a diet. 12/05 * Patient fasting BSG trending up, will monitor. Post prandials [phone] yesterday. Will increase NPH by ~10% and tighten CF. * Today's lunch BSG elevated at 252. However this may be falsely elevated to some extent given only 2 hours between AM NovoLog and lunch BSG draw. Will monitor today's trend before making any further changes * Patient continues on steroids and is tolerating a diet. 12/04 * BSGs [phone] mg/dL with 96 units of insulin on board * Fasting 111 mg/dL this morning, continue NPH with dexamethasone * Carb ratio tightened to 3 yesterday, improved lunch BSG today, will keep same for now 12/03 * Patient's BSGs yesterday were [phone] mg/dL. * Patient received 100 units of insulin (44 units of basal and 56 units of bolus). * Fasting BSG today was 104 mg/dL. * Continue to hold Lantus. * Dexamethasone continued today with a decreased dose of 4 mg. Since NPH was not sufficient with dexamethasone 6 mg, this dose will probably be sufficient with less dexamethasone so continue with NPH 44 units. * Continue aggressive Novolog due to hyperglycemia with steroids. 12/01 * Dex day 13 * AM fasting 78 mg/dL, will continue to hold additional basal, continue NPH with steroid in the morning * BSGs stable 84-171 mg/dL yesterday. Will continue current parameters 11/30 * Stressors stable - dexamethasone day * AM fasting BSG below goal range - will continue NPH but discontinue Lantus * Post-prandial BSG's mildly elevated x2 yesterday, but good today at lunch. Will keep for now. May increase NPH slightly tomorrow if AM fasting BSG is >100 mg/dL 11/29 * Stressors stable * AM fasting BSG below goal range - will continue NPH but reduce Lantus * Post-prandial BSG's elevated yesterday. Will tighten CHO ratio again 11/28 * Stressors stable * AM fasting BSG in range - no change to basal insulin * PO intake increased yesterday and was associated with increased post-prandial BSG's despite tightening of CHO ratio at lunch. Will tighten further and also tighten correction factor PLAN FOR INPATIENT GLYCEMIC CONTROL: * Hold outpatient Metformin and Ozempic diabetes medications * Basal insulin * NPH 35 units SQ with IV Solu medrol AM dose * NPH 20 units SQ with dinner. * Bolus insulin * NovoLog per scale ACHS or Q6hrs while NPO * Goal Range: Low 110 mg/dL - High 140 mg/dL * Correction Factor: 10 mg/dL/unit * Nutritional / Prandial insulin per carb ratio of 1 unit per 3 grams CHO consumed PLAN FOR DISCHARGE: * A1c 6.3% at goal. Continue home regimen assuming frequent hypoglycemia as an outpatient is not occurring and assuming no contraindications exist at discharge
[2020-12-10] MEDS: cefTRIAXone SODIUM 2,000 MG in DEXTROSE 5% 50 ML IV SCH (14:36)
[2020-12-10] MEDS: MUPIROCIN 2% OINT 22 GM TUBE EXT SCH ×2 (15:40→21:05)
--- NOTE | 2020-12-10 18:14 | Hospitalist Progress Note ---
Date of Service December 10, 2020 Assessment & Plan (1) Acute respiratory failure with hypoxia: Plan: Pt has had a setback in oxygen tapering, did have CTA 12/08 without PE, cxr with persistent changes, does have asthma will have scheduled nebs. adding formoterol 12/10, diuresis starting and continue steroids now using solumedrol (2) Pneumonia due to 2019 novel coronavirus: Plan: SEVERE COVID pneumonia, hospitalized since 11/18/20, Covid able to come off respiratory isolation likely will need rehab, extreme exertional fatigue Day #14 of baricitinib, finished Day #16 of IV dexamethasone, decreased to 4mg IV on 12/03, would taper slowly, very sensitive Completed 5-day course of Remdesivir. Procal x 2 both negative during the stay; abx deferred. CRP initially high but improved with steroids/baricitinib. Continue aggressive pulmonary toilet. Nebs [place], helping the most with cough tessalon 200mg TID, mucinex 600mg BID, guaitussin ac q6h prn. felt more short of breath and had some increased oxygen requirements, CTA negative for PE 12/08/20 remains on scd, starting heparin cautiously, restarting lasix and continue steroids (3) Asthma: Plan: exacerbation currently -worseing symptoms of COVID-19 infection. 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 albuterol nebulizers and steroids follows w/ Dr Sina Estrada. Dr Estrada called patient the prior week for assurance (4) UTI (urinary tract infection): Plan: Klebsiella and proteus uti found, on rocephin which is good for sensitiities complete 7 days as is a catheter associated uti (5) Right lower quadrant abdominal pain: Plan: This is now coalesced into a large retroperitoneal bleed 19 x [address] scan from 12/06/2020. Hemoglobin did drop making his acute blood loss anemia from 12.9 g to 7.3 g. Patient transfused 2 units packed red blood cells. Patient had enoxaparin stopped on the aspirin stopped on the HGB remains stable after 2 units, Pt is uncomfortable. (6) Acute kidney injury: Plan: resolved, Cr continues to improve CT scan on 12/06 shows extrinsic compression of bilateral ureters with mild hydronephrosis seen. However her creatinine did improve with cessation of diuretic therapy which was initially being used for her Covid pneumonia. Creatinine is now come down to 1.09 from 1.5. Watchful waiting given concern for expansion of retroperitoneal mass affecting ureteral drainage. Her postobstructive change from her urine being retained in her bladder has been relieved with Meyer catheter (7) Acute blood loss anemia: Plan: Acute blood loss anemia from abdominal musculature hematoma and large retroperitoneal hematoma this likely occurred due to coughing and abdominal wall stressors while being on anticoagulation of Lovenox 0.5 mg/kg subcu twice daily and aspirin subsequently held, restart heparin sc 12/09 evening (8) Constipation: Plan: senna + miralax no obstruction or ileus on KUB 11/29 Resolved constipation (9) Type 2 diabetes mellitus with insulin therapy: Plan: Glycemic recs appreciated from the pharmacy team. Glycemic management appears to be much improved Cont NPH, lantus, and novolog. HbA1c <6.5% in September. Control adequate, monitor for hypoglycemia and hyperglycemia, no episodes the past 24 hours (10) Vomiting: Plan: Resolved no additional vomiting felt secondary to constipatin, on imaging no obstruction or ileus, needs to move bowels Miralax TID, can try suppository, on Senna advance to low fiber diet (11) Hyponatremia: Plan: resolved (12) Morbid obesity: Plan: risk factor for covid morbidity BMI has improved s/p diuresis BMI high 30s (13) Hypertension: Plan: cont metoprolol. hold aldactone. (14) GERD (gastroesophageal reflux disease): Plan: Protonix BID with vomiting H2 susan. (15) Atrial flutter, paroxysmal: Plan: History of. No a.fib/flutter while here. (16) DVT prophylaxis: Plan: Patient is sequential compression devices. restart heparin sc High risk of VTE given severity of COVID illness, famHx of VTE, etc. Admission and Anticipated Discharge Date Admission Date: November 18, 2020 Subjective PT was having increased shortness of breath and oxygen need, she did have CXR with presistent changes and was given albuterol, CTA 12/08 neg for PE, likely persistent changes of covid but restart diuresis that was stopped when had retroperitoneal bleed, escalate asthma treatment, return to steroids using solumedrol, uti shows Klebsiella and proteus sensitive to rocephin Patient was unable to urinate well Meyer catheter remains Review of Systems Review of Systems: Moderate respiratory distress and fatigue no headache, no visual changes no speech or swallowing issues no chest pain, pressure or palpitations Remains with exertional shortness of breath, nonproductive cough, lungs feel tig ht improving abdominal pain No complaints of dysuria, does have meyer no focal joint pain or swelling no back pain, CVA tenderness or radicular pain Bilateral flank bruising no focal signs of weakness or numbness or altered sensation Patient occasionaly tearful and appears depressed Physical Exam Physical Exam: The patient appeared well nourished and normally developed. Mild distress with abdominal pain Vital signs as documented. Head exam is normocephalic atraumatic Neck is without JVD, thyromegaly, or carotid bruits. Lungs continue with faint bibasilar crackles, faint expiratory wheezes Cardiac exam, Rhythm is regular.. No murmurs, rubs or gallops. Abdominal exam reveals hyperactive bowel sounds, bilateral lower quadrant pain bruising on the bilateral flanks Extremities are nonedematous and both pedal pulses are present, no swelling or chords Neurologic exam is alert and oriented, no focal loss of strength or sensation Skin is with increasing bruising on her sides consistent with retroperitoneal bleed Psychologically is without concerns for anxiety or depression Results & Data Results & Data ([facility]) Vital Signs (Past 12 Hours) Vital Signs Temp Pulse Resp BP BP Pulse Ox 12/10/20 15:43 79 18 93 12/10/20 15:12 98.4 F 78 18 119/78 94 12/10/20 13:23 87 18 91 12/10/20 11:34 81 20 89 L 12/10/20 07:55 93 H 18 96 12/10/20 06:53 98.2 F 79 18 133/90 93 PG Care Time/CCT Total # of Minutes Spent Total Time Spent with Patient: Total time spent is greater than 50% in coordination of care (as documented) at patient's floor/unit and/or counseling patient: Coding Level of Care Code 72517 Subseq Hosp Care Lvl 3 Diagnoses Acute respiratory failure with hypoxia J96.01 Pneumonia due to 2019 novel coronavirus U07.1; J12.82 Asthma J45.909 UTI (urinary tract infection) N39.0 Right lower quadrant abdominal pain R10.31 Acute kidney injury N17.9 Acute blood loss anemia D62 Constipation K59.00 Type 2 diabetes mellitus with insulin therapy E11.9; Z79.4 Vomiting R11.10 Hyponatremia E87.1 Morbid obesity E66.01 Hypertension I10 GERD (gastroesophageal reflux disease) K21.9 Atrial flutter, paroxysmal I48.92 DVT prophylaxis Z29.9
[2020-12-10] MEDS: MONTELUKAST SODIUM 10 MG TABLET PO SCH (20:59)
[2020-12-11] MEDS: ALBUT/IPRATROP 3MG/0.5MG NEB 3 ML VIAL NEB SCH ×6 (02:20→22:00)
[2020-12-11] MEDS: methylPREDNISolone 40 MG in SYRINGE 0 ML IV SCH ×3 (05:26→21:15)
[2020-12-11] MEDS: INSULIN HUMAN NPH SC SCH (05:27)
[2020-12-11] MEDS: DEXTROMETHORPHAN POLYMR COMPLX 30 MG/5 ML UDP PO PRN ×2 (05:32→21:24)
[2020-12-11 05:56] LABS: Hematocrit (blood only) 29.7 % (37-47); Hemoglobin 9.5 g/dL (12.0-16.0); Mean Corpuscular Volume 93.7 fL (80-100); Mean Platelet Volume 8.9 fL (7.4-10.4); Nucleated RBC # (auto) 0.14 K/uL (0-0); Nucleated RBC % (auto) 0.8 %; Platelet Count 237 K/uL (130-400); RDW Coefficient of Variation 17.9 % (11.5-14.5); RDW Standard Deviation 54.8 fL (36.4-46.3); Red Blood Count 3.17 M/uL (4.2-5.4); White Blood Count 16.85 K/uL (4.8-10.8)
[2020-12-11 06:21] LABS: BUN Creatinine Ratio 25.5 (10-20); Calcium 9.2 mg/dl (8.5-10.1); Creatinine Clr Calc Pharmacy 113.6 ml/min; Est GFR (African American) 108.2 ml/min; Est GFR (Non-African American) 93.4 ml/min; Potassium 4.5 mmol/L (3.5-5.1)
[2020-12-11] MEDS: FORMOTEROL 20 MCG/2 ML VIAL NEB SCH ×2 (07:30→18:14)
[2020-12-11] MEDS: PANTOprazole 40 MG TAB PO SCH ×2 (08:00→19:50)
[2020-12-11] MEDS: CYANOCOBALAMIN 500 MCG TABLET (VITAMIN B-12) PO SCH (08:01)
[2020-12-11] MEDS: METOPROLOL TARTRATE 25 MG TAB PO SCH ×2 (08:01→19:49)
[2020-12-11] MEDS: POTASSIUM CHLORIDE CRTAB 20 MEQ TABCR PO SCH ×2 (08:01→19:49)
[2020-12-11] MEDS: guaiFENesin 600 MG TABCR PO SCH ×2 (08:01→19:48)
[2020-12-11] MEDS: buPROPion SR 100 MG TABCR PO SCH ×2 (08:01→19:48)
[2020-12-11] MEDS: SENNA 8.6 MG TAB PO SCH (08:02)
[2020-12-11] MEDS: HEPARIN SOD 5,000 UNIT/0.5 ML VIAL SQ SCH ×2 (08:03→19:51)
[2020-12-11] MEDS: FLUTICASONE FUROATE 200MCG 14 PUFFS/INHALER INH SCH (08:03)
[2020-12-11] MEDS: BENZONATATE 100 MG CAPSULE PO SCH ×3 (08:07→19:59)
[2020-12-11] MEDS: FAMOTIDINE 20 MG TAB PO SCH ×2 (08:07→19:51)
[2020-12-11] MEDS: POLYETHYLENE (MIRALAX) 17 GM PACK PO SCH ×2 (08:09→19:52)
[2020-12-11] MEDS: DICLOFENAC SOD 1% GEL 100 GM TUBE EXT SCH ×2 (08:10→19:51)
[2020-12-11] MEDS: LIDOCAINE 5% 1 PATCH TD SCH (08:10)
[2020-12-11] MEDS: MUPIROCIN 2% OINT 22 GM TUBE EXT SCH ×2 (08:11→19:52)
[2020-12-11] MEDS: Magic Mouthwash 240mL PO SCH ×4 (08:11→19:56)
[2020-12-11] MEDS: ACETAMINOPHEN 325 MG TAB PO PRN ×2 (08:13→14:39)
[2020-12-11] MEDS: INSULIN ASPART 100 UNITS/ML 3 ML PEN SC SCH ×4 (08:54→21:14)
--- NOTE | 2020-12-11 12:31 | Pharmacy Report ---
Pharmacy Glycemic Short Note 2 - Date of Service December 11, 2020 - Glycemic Short BSG Results (Last 24 hours): 12/10/20 12/10/20 12/10/20 12:50 17:01 20:27 Glucose POC Glucose 211 H 135 H 226 H 12/11/20 12/11/20 12/11/20 05:46 08:15 12:06 Glucose 171 H POC Glucose 181 H 222 H OUTPATIENT ANTIDIABETIC REGIMEN: * Basaglar 60 units HS * Ozempic 0.5mg SQ monthly * Metformin ER 1000mg PO BID * HbA1c 6.3% on 09/27/20 ASSESSMENT: 12/11/20 * Patient's BSGs yesterday were [phone] mg/dL. * Patient received 117 units of insulin (55 units of basal and 62 units of bolus). * Fasting BSG today was 181 mg/dL. * Continue morning NPH. Increase PM NPH as fasting elevated with Solu-Medrol 40 mg IV q8. * Further tighten aggressive Novolog due to hyperglycemia with steroids. 12/10: * Pt received total of 96 units of insulin yesterday; 54 basal NPH in AM and 42 units bolus. * Dex IV was discontinued and Solu medrol 40 mg IV q8h was started last night at 2200. BSGs trended up to 172 (fasting this AM). * NPH dose was split into two doses; 35 units in the AM with IV solu medrol and 20 units with dinner. Will trial this today and make adjustments tomorrow. * Novolog parameters continued the same. 12/08: * Continuing current parameters, monitor for changes 12/07 * Patients BSGs much improved with increased NPH dosing. Will continue with current regimen. Novolog CF was tightened slightly this morning . * Patient continues on dex 4 IV and is tolerating a diet. 12/05 * Patient fasting BSG trending up, will monitor. Post prandials [phone] yesterday. Will increase NPH by ~10% and tighten CF. * Today's lunch BSG elevated at 252. However this may be falsely elevated to some extent given only 2 hours between AM NovoLog and lunch BSG draw. Will monitor today's trend before making any further changes * Patient continues on steroids and is tolerating a diet. 12/04 * BSGs [phone] mg/dL with 96 units of insulin on board * Fasting 111 mg/dL this morning, continue NPH with dexamethasone * Carb ratio tightened to 3 yesterday, improved lunch BSG today, will keep same for now 12/03 * Patient's BSGs yesterday were [phone] mg/dL. * Patient received 100 units of insulin (44 units of basal and 56 units of bolus). * Fasting BSG today was 104 mg/dL. * Continue to hold Lantus. * Dexamethasone continued today with a decreased dose of 4 mg. Since NPH was not sufficient with dexamethasone 6 mg, this dose will probably be sufficient with less dexamethasone so continue with NPH 44 units. * Continue aggressive Novolog due to hyperglycemia with steroids. PLAN FOR INPATIENT GLYCEMIC CONTROL: * Hold outpatient Metformin and Ozempic diabetes medications * Basal insulin * NPH 35 units SQ with IV Solu medrol AM dose * NPH 25 units SQ with dinner. * Bolus insulin * NovoLog per scale ACHS or Q6hrs while NPO * Goal Range: Low 110 mg/dL - High 140 mg/dL * Correction Factor: 10 mg/dL/unit * Nutritional / Prandial insulin per carb ratio of 1 unit per 2 grams CHO consumed PLAN FOR DISCHARGE: * A1c 6.3% at goal. Continue home regimen assuming frequent hypoglycemia as an outpatient is not occurring and assuming no contraindications exist at discharge
--- NOTE | 2020-12-11 12:54 | Hospitalist Progress Note ---
Date of Service December 11, 2020 Assessment & Plan (1) Acute respiratory failure with hypoxia: Plan: patient was on Vapotherm for a long time, down to wall high flow by the end of last week was doing well, down to 3L on 12/08 but then required more oxygen, up to 9L at one point CTA chest 12/08 without PE currently on Solu Medrol 40mg q8, scheduled nebulizers will add back Lasix 20mg IV, give a dose today, Cr is 0.7 will ask pulmonary to see tomorrow, give further input today she has been on 6-7L OOB in the chair, looks better, breathing easier try to get down to 2-3L, suspect she will need oxygen a long time (2) Pneumonia due to 2019 novel coronavirus: Plan: SEVERE COVID pneumonia, hospitalized since 11/18/20 able to come off respiratory isolation likely will need rehab, extreme exertional fatigue complete 14 days of baricitinib completed extended course of dexamethasone IV, changed to Solu Medrol on 12/08 when oxygen requirements went back up, treating asthma Completed 5-day course of Remdesivir. CRP initially high but improved with steroids/baricitinib. Continue aggressive pulmonary toilet. Nebs [place], helping the most with cough tessalon 200mg TID, mucinex 600mg BID, guaitussin ac q6h prn. 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 albuterol nebulizers and steroids follows w/ Dr Sina Estrada outpatient (4) UTI (urinary tract infection): Plan: Klebsiella and proteus uti found, on rocephin which is good for sensitiities complete 7 days as is a catheter associated uti finish 12/15 (5) Right lower quadrant abdominal pain: Plan: This is now coalesced into a large retroperitoneal bleed 19 x [address] scan from 12/06/2020. Hemoglobin did drop making his acute blood loss anemia from 12.9 g to 7.3 g. Patient transfused 2 units packed red blood cells. Patient had enoxaparin stopped on the aspirin stopped on the HGB remains stable after 2 units no abdominal pain, much more comfortable heparin SC resumed for DVT prophylaxis (6) Acute kidney injury: Plan: resolved, Cr at 0.[address] scan on 12/06 shows extrinsic compression of bilateral ureters with mild hydronephrosis seen making urine via meyer resume Lasix 20mg IV today (7) Acute blood loss anemia: Plan: Acute blood loss anemia from abdominal musculature hematoma and large retroperitoneal hematoma this likely occurred due to coughing and abdominal wall stressors while being on anticoagulation of Lovenox 0.5 mg/kg subcu twice daily Hb is 9.5, has been stable ever since transfusion, no further evidence of bleeding (8) Constipation: Plan: senna + miralax no obstruction or ileus on KUB 11/29 Resolved constipation (9) Type 2 diabetes mellitus with insulin therapy: Plan: Glycemic recs appreciated from the pharmacy team. Glycemic management appears to be much improved Cont NPH, lantus, and novolog. HbA1c <6.5% in September. Control adequate, monitor for hypoglycemia and hyperglycemia, no episodes the past 24 hours (10) Vomiting: Plan: Resolved no additional vomiting felt secondary to constipatin, on imaging no obstruction or ileus, needs to move bowels Miralax TID, can try suppository, on Senna advance to low fiber diet (11) Hyponatremia: Plan: resolved (12) Morbid obesity: Plan: risk factor for covid morbidity BMI has improved s/p diuresis BMI high 30s (13) Hypertension: Plan: cont metoprolol. hold aldactone. (14) GERD (gastroesophageal reflux disease): Plan: Protonix BID with vomiting H2 susan. (15) Atrial flutter, paroxysmal: Plan: History of. No a.fib/flutter while here. (16) DVT prophylaxis: Plan: Patient is sequential compression devices. restart heparin sc High risk of VTE given severity of COVID illness, famHx of VTE, etc. Admission and Anticipated Discharge Date Admission Date: November 18, 2020 Subjective patient doing a lot better compared to when I saw her 7 days ago sitting up in a chair, she says this is the longest she has been up OOB her entire stay still with the dry cough, no longer has abdominal pain reviewed chart, events from prior week, the discovery of retroperitoneal bleed, anemia Hb is stable today, 9.5 and Cr is 0.73 discussed that she is on the road to recovery, goal is to get her to rehab by the end of the week, she agrees Review of Systems Review of Systems: All systems reviewed & are unremarkable except as noted in Subjective Constitutional: + weakness; no fever and no fatigue Respiratory: + cough, + dyspnea and + dyspnea on exertion; no pain with cough and no sputum production Gastrointestinal: no abdominal pain, no nausea, no vomiting, no constipation and no diarrhea/loose stools Physical Exam Physical Exam: General: well developed, obese female, no distress, comfortable Neck: supple, trachea midline, normal thyroid Lungs: + cough, no wheezing, no crackles, normal effort, no accessory muscles Heart: regular S1 and S2, no murmur, peripheral pulses normal, capillary refill normal, no edema Abdomen: soft, no tenderness, non distended, normal bowel sounds, tympanic to percussion Extremities: normal in appearance, no cyanosis, no petechiae, strength is 5/5 bilaterally Neuro: awake, cooperative, moves all extremities, no focal motor deficits, CN II-XII intact, sensation in extremities intact, normal speech Skin: warm, dry, no rash, normal turgor Psych: Awake, alert oriented x 3, anxious affect Results & Data Results & Data ([facility]) Vital Signs (Past 12 Hours) Vital Signs Temp Pulse Resp BP Pulse Ox 12/11/20 11:04 76 16 93 12/11/20 07:55 37.1 C 73 20 144/83 H 94 12/11/20 07:30 84 18 94 12/11/20 02:23 79 20 97 Laboratory Results Laboratory Results - last 24 hr 12/10/20 12/10/20 12/10/20 12:50 17:01 20:27 WBC RBC Hgb Hct MCV MCH MCHC RDW Std Deviation RDW Coeff of Sheridan Plt Count MPV Absolute Nucleated RBC Nucleated RBC % (auto) Sodium Potassium Chloride Carbon Dioxide Anion Gap BUN Creatinine Est Cr Clr Drug Dosing Est GFR ( Amer) Est GFR (Non-Af Amer) BUN/Creatinine Ratio Glucose POC Glucose 211 H 135 H 226 H Calcium 12/11/20 12/11/20 12/11/20 05:46 05:46 08:15 WBC 16.85 H RBC 3.17 L Hgb 9.5 L Hct 29.7 L MCV 93.7 MCH 30.0 MCHC 32.0 RDW Std Deviation 54.8 H RDW Coeff of Sheridan 17.9 H Plt Count 237 MPV 8.9 Absolute Nucleated RBC 0.14 H Nucleated RBC % (auto) 0.8 Sodium 135 L Potassium 4.5 Chloride 105 Carbon Dioxide 25 Anion Gap 5.0 BUN 19 H Creatinine 0.73 Est Cr Clr Drug Dosing 113.6 Est GFR ( Amer) 108.2 Est GFR (Non-Af Amer) 93.4 BUN/Creatinine Ratio 25.5 H Glucose 171 H POC Glucose 181 H Calcium 9.2 12/11/20 12:06 WBC RBC Hgb Hct MCV MCH MCHC RDW Std Deviation RDW Coeff of Hseridan Plt Count MPV Absolute Nucleated RBC Nucleated RBC % (auto) Sodium Potassium Chloride Carbon Dioxide Anion Gap BUN Creatinine Est Cr Clr Drug Dosing Est GFR ( Amer) Est GFR (Non-Af Amer) BUN/Creatinine Ratio Glucose POC Glucose 222 H Calcium Medications Administered Current Inpatient Medications Acetaminophen (Acetaminophen 325 Mg Tab) 650 mg PO Q4H PRN PRN Reason: Pain or Fever Stop: 12/18/20 16:10 Last Admin: 12/11/20 08:13 Dose: 650 mg Documented by: Albuterol (Albut/Ipratrop 3mg/0.5mg Neb 3 Ml Vial) 3 ml NEB Q4R [facility], [facility] Stop: 01/06/21 14:59 Last Admin: 12/11/20 11:04 Dose: 3 ml Documented by: Albuterol (Albuterol 0.083% Nebu Soln 3 Ml Vial) 2.5 mg NEB Q2H PRN PRN Reason: sob Stop: 01/08/21 10:16 Benzonatate (Benzonatate 100 Mg Capsule) 200 mg PO TID [facility], [facility] Stop: 12/21/20 11:09 Last Admin: 12/11/20 08:07 Dose: 200 mg Documented by: Bisacodyl (Bisacodyl 10 Mg Supp) 10 mg NH DAILY PRN PRN Reason: Constipation Stop: 12/31/20 10:27 Last Admin: 12/01/20 12:29 Dose: 10 mg Documented by: Bupropion HCl (Bupropion Sr 100 Mg Tabcr) 200 mg PO BID [facility], [facility] Stop: 12/18/20 20:59 Last Admin: 12/11/20 08:01 Dose: 200 mg Documented by: Nystatin 30 ml/ Dexamethasone 3.75 mg/ Diphenhydramine HCl 300 mg/ Sucrose 45 ml/Microcrystalline Cellulose 45 ml/ BARCODE IDENTIFIER 1 ea 0 ml PO QID [facility], [facility]1983 Stop: 01/10/21 08:59 Last Admin: 12/11/20 12:38 Dose: 5 ml Documented by: Cyanocobalamin (Cyanocobalamin 500 Mcg Tablet (Vitamin B-12)) 2,500 mcg PO QAM GIANNA Stop: 12/19/20 08:59 Last Admin: 12/11/20 08:01 Dose: 2,500 mcg Documented by: Dextromethorphan Polymer Complex (Dextromethorphan Polymr Complx 30 Mg/5 Ml Udp) 30 mg PO Q6H PRN PRN Reason: Cough Stop: 12/18/20 19:47 Last Admin: 12/11/20 05:32 Dose: 30 mg Documented by: Dextrose (Dextrose 50% 50 Ml Syringe) 25 - 50 ml IV UD PRN; Protocol PRN Reason: Hypoglycemia Protocol Stop: 12/19/20 07:29 Diclofenac Sodium (Diclofenac Sod 1% Gel 100 Gm Tube) 4 gm EXT Q12 GIANNA Stop: 12/19/20 20:59 Last Admin: 12/11/20 08:10 Dose: Not Given Documented by: Famotidine (Famotidine 20 Mg Tab) 20 mg PO BID [facility] Stop: 01/04/21 20:59 Last Admin: 12/11/20 08:07 Dose: 20 mg Documented by: Fluticasone Furoate (Fluticasone Furoate 200mcg 14 Puffs/Inhaler) 1 puffs INH DAILY [facility], [facility]; Protocol Stop: 12/21/20 11:59 Last Admin: 12/11/20 08:03 Dose: 1 puffs Documented by: Formoterol Fumarate (Formoterol 20 Mcg/2 Ml Vial) 20 mcg NEB BIDR [facility], [facility] Stop: 01/09/21 13:14 Last Admin: 12/11/20 07:30 Dose: 20 mcg Documented by: Glucagon (Glucagon For Inj 1 Mg Vial) 1 mg IM UD PRN; Protocol PRN Reason: Hypoglycemia Protocol Stop: 12/19/20 07:29 Glucose (Glucose 40% Gel 15 Gm Tube) 15 - 30 gm PO UD PRN; Protocol PRN Reason: Hypoglycemia Protocol Stop: 12/19/20 07:29 Glucose (Glucose 10 Tabs/Tube) 4 - 8 tabs PO UD PRN; Protocol PRN Reason: Hypoglycemia Protocol Stop: 12/19/20 07:29 Guaifenesin (Guaifenesin 600 Mg Tabcr) 600 mg PO Q12 GIANNA Stop: 12/21/20 20:59 Last Admin: 12/11/20 08:01 Dose: 600 mg Documented by: Guaifenesin/Codeine Phosphate (Guaifenesin/Codeine 100mg/10mg 5ml Udc) 5 ml PO Q6H PRN PRN Reason: Cough Stop: 12/21/20 11:08 Last Admin: 12/04/20 12:50 Dose: 5 ml Documented by: Heparin Sodium (Porcine) (Heparin Sod 5,000 Unit/0.5 Ml Vial) 5,000 units SQ Q12 GIANNA Stop: 01/08/21 20:59 Last Admin: 12/11/20 08:03 Dose: 5,000 units Documented by: Hydromorphone HCl (Hydromorphone Inj 1 Mg/Ml Syringe) 1 mg IV Q4H PRN PRN Reason: Pain Stop: 12/18/20 15:09 Last Admin: 12/05/20 22:44 Dose: 1 mg Documented by: Lorazepam (Ativan) 0.25 mg in 0.5 mls @ 0.5 mls/min IV Q6H PRN PRN Reason: anxiety Stop: 12/25/20 15:09 Last Admin: 12/04/20 19:29 Dose: 0.5 mls/min Documented by: Ceftriaxone Sodium 2,000 mg/ (Dextrose) 70 mls @ 100 mls/hr IV DAILY@1400 GIANNA; Protocol Stop: 12/15/20 13:59 Last Infusion: 12/10/20 15:18 Dose: Infused Documented by: Methylprednisolone 40 mg/ (Syringe) 0.64 mls @ 1.5 mls/min IV Q8 GIANNA Stop: 01/08/21 21:59 Last Admin: 12/11/20 05:26 Dose: 1.5 mls/min Documented by: Insulin Aspart (Insulin Aspart 100 Units/Ml 3 Ml Pen) 0 units SC ACHS GIANNA; Protocol Stop: 12/28/20 11:29 Last Admin: 12/11/20 12:38 Dose: 26 units Documented by: Insulin Human NPH (Insulin Human Nph) 35 units SC DAILY@0600 [facility], [facility]; Protocol Stop: 01/09/21 08:29 Last Admin: 12/11/20 05:27 Dose: 35 units Documented by: Insulin Human NPH (Insulin Human Nph) 25 units SC QDD [facility], [facility]; Protocol Stop: 01/10/21 16:29 Lidocaine (Lidocaine 5% 1 Patch) 1 patch TD QAM [facility] Stop: 12/19/20 09:59 Last Admin: 12/11/20 08:10 Dose: Not Given Documented by: Lorazepam (Lorazepam 0.5 Mg Tab) 0.5 mg PO Q6H PRN PRN Reason: Anxiety Stop: 12/18/20 19:50 Last Admin: 12/10/20 18:34 Dose: 0.5 mg Documented by: Magnesium Citrate (Magnesium Citrate 296 Ml/Btl) 50 ml PO DAILY PRN PRN Reason: No BM w/in 48 hours Stop: 01/01/21 21:01 Menthol (Cough Drop (Sugar Free) Anahy 24 Anahy/1 Box) 1 anahy BUCCAL Q1H PRN PRN Reason: Sore Throat Stop: 12/23/20 16:29 Last Admin: 11/29/20 12:52 Dose: 1 anahy Documented by: Metoprolol Tartrate (Metoprolol Tartrate 25 Mg Tab) 75 mg PO BID [facility] Stop: 12/18/20 20:59 Last Admin: 12/11/20 08:01 Dose: 75 mg Documented by: Miscellaneous (Carbohydrates For Hypoglycemia ) 15 - 30 gm PO UD PRN PRN Reason: Hypoglycemia Treatment Stop: 12/19/20 07:29 Miscellaneous (Remove Lidoderm Patch) 1 ea N/A DAILY@2100 [facility] Stop: 12/19/20 20:59 Last Admin: 12/10/20 21:02 Dose: 1 ea Documented by: Miscellaneous Information (Pharmacy Glycemic Mgmt Consult) 1 ea N/A UD PRN PRN Reason: Consult Stop: 12/18/20 16:10 Montelukast Sodium (Montelukast Sodium 10 Mg Tablet) 10 mg PO QPM [facility] Stop: 12/18/20 20:59 Last Admin: 12/10/20 20:59 Dose: 10 mg Documented by: Mupirocin (Mupirocin 2% Oint 22 Gm Tube) 1 appln EXT Q12 [facility] Stop: 12/19/20 20:59 Last Admin: 12/11/20 08:11 Dose: 1 appln Documented by: Ondansetron HCl (Ondansetron Inj 2 Mg/Ml 2 Ml Vial) 4 mg IV Q6H PRN PRN Reason: Nausea Stop: 12/18/20 16:10 Last Admin: 12/01/20 08:01 Dose: 4 mg Documented by: Pantoprazole Sodium (Pantoprazole 40 Mg Tab) 40 mg PO BID [facility] Stop: 01/04/21 20:59 Last Admin: 12/11/20 08:00 Dose: 40 mg Documented by: Polyethylene Glycol (Polyethylene (Miralax) 17 Gm Pack) 17 gm PO BID [facility] Stop: 01/01/21 20:59 Last Admin: 12/11/20 08:09 Dose: 17 gm Documented by: Potassium Chloride (Potassium Chloride Crtab 20 Meq Tabcr) 40 meq PO BID [facility] Stop: 01/08/21 20:59 Last Admin: 12/11/20 08:01 Dose: 40 meq Documented by: Sennosides (Senna 8.6 Mg Tab) 17.2 mg PO QAM [facility] Stop: 12/24/20 14:59 Last Admin: 12/11/20 08:02 Dose: 17.2 mg Documented by: Sodium Chloride (Sodium Chloride 0.65% Na Soln 45 Ml ([place])) 2 sprays NA Q1H PRN PRN Reason: dryness of nose Stop: 12/23/20 16:40 Last Admin: 12/01/20 08:02 Dose: 2 sprays Documented by: Sumatriptan Succinate (Sumatriptan Succinate 100 Mg Tab) 100 mg PO UD PRN PRN Reason: migraine/headache Stop: 01/07/21 04:52 Last Admin: 12/08/20 05:38 Dose: 100 mg Documented by: PG Care Time/CCT Total # of Minutes Spent Total Time Spent with Patient: Total time spent is greater than 50% in coordination of care (as documented) at patient's floor/unit and/or counseling patient: Coding Level of Care Code 17273 Subseq Hosp Care Lvl 3 Diagnoses Acute respiratory failure with hypoxia J96.01 Pneumonia due to 2019 novel coronavirus U07.1; J12.82 Asthma J45.909 UTI (urinary tract infection) N39.0 Right lower quadrant abdominal pain R10.31 Acute kidney injury N17.9 Acute blood loss anemia D62 Constipation K59.00 Type 2 diabetes mellitus with insulin therapy E11.9; Z79.4 Vomiting R11.10 Hyponatremia E87.1 Morbid obesity E66.01 Hypertension I10 GERD (gastroesophageal reflux disease) K21.9 Atrial flutter, paroxysmal I48.92 DVT prophylaxis Z29.9
[2020-12-11] MEDS: cefTRIAXone SODIUM 2,000 MG in DEXTROSE 5% 50 ML IV SCH (13:42)
[2020-12-11] MEDS ORDERED: FUROSEMIDE 20 MG in SYRINGE 0 ML IV ONE (16:00)
[2020-12-11] MEDS ORDERED: INSULIN HUMAN NPH SC SCH (16:30)
[2020-12-11] MEDS: MONTELUKAST SODIUM 10 MG TABLET PO SCH (19:49)
[2020-12-11] MEDS: LORazepam 0.5 MG TAB PO PRN (19:59)
[2020-12-11] MEDS: SUMAtriptan succinate 100 MG TAB PO PRN (20:26)
[2020-12-12] MEDS: ALBUT/IPRATROP 3MG/0.5MG NEB 3 ML VIAL NEB SCH ×6 (02:56→22:14)
[2020-12-12] MEDS: methylPREDNISolone 40 MG in SYRINGE 0 ML IV SCH ×3 (05:33→22:19)
[2020-12-12] MEDS: INSULIN HUMAN NPH SC SCH (05:33)
[2020-12-12] MEDS: DEXTROMETHORPHAN POLYMR COMPLX 30 MG/5 ML UDP PO PRN (05:39)
[2020-12-12 06:34] LABS: Hematocrit (blood only) 31.8 % (37-47); Mean Corpuscular Hemoglobin 29.8 pg (25-34); Mean Corpuscular Hgb Conc 31.4 g/dL (32-36); Mean Corpuscular Volume 94.6 fL (80-100); Mean Platelet Volume 9.1 fL (7.4-10.4); Nucleated RBC # (auto) 0.15 K/uL (0-0); Nucleated RBC % (auto) 0.9 %; Platelet Count 254 K/uL (130-400); RDW Standard Deviation 57.3 fL (36.4-46.3); Red Blood Count 3.36 M/uL (4.2-5.4); White Blood Count 16.98 K/uL (4.8-10.8)
[2020-12-12] MEDS: POTASSIUM CHLORIDE CRTAB 20 MEQ TABCR PO SCH ×2 (08:40→20:54)
[2020-12-12] MEDS: buPROPion SR 100 MG TABCR PO SCH ×2 (08:41→20:52)
[2020-12-12] MEDS: SENNA 8.6 MG TAB PO SCH (08:42)
[2020-12-12] MEDS: PANTOprazole 40 MG TAB PO SCH ×2 (08:42→20:54)
[2020-12-12] MEDS: CYANOCOBALAMIN 500 MCG TABLET (VITAMIN B-12) PO SCH (08:42)
[2020-12-12] MEDS: METOPROLOL TARTRATE 25 MG TAB PO SCH ×2 (08:43→20:53)
[2020-12-12] MEDS: HEPARIN SOD 5,000 UNIT/0.5 ML VIAL SQ SCH ×2 (08:43→20:52)
[2020-12-12] MEDS: FLUTICASONE FUROATE 200MCG 14 PUFFS/INHALER INH SCH (08:44)
[2020-12-12] MEDS: guaiFENesin 600 MG TABCR PO SCH ×2 (08:44→20:52)
[2020-12-12] MEDS: LIDOCAINE 5% 1 PATCH TD SCH (08:45)
[2020-12-12] MEDS: DICLOFENAC SOD 1% GEL 100 GM TUBE EXT SCH ×2 (08:45→20:52)
[2020-12-12] MEDS: MUPIROCIN 2% OINT 22 GM TUBE EXT SCH ×2 (08:46→20:54)
[2020-12-12] MEDS: INSULIN ASPART 100 UNITS/ML 3 ML PEN SC SCH ×4 (09:07→21:13)
[2020-12-12] MEDS: LORazepam 0.5 MG TAB PO PRN (09:08)
[2020-12-12] MEDS: BENZONATATE 100 MG CAPSULE PO SCH ×3 (09:08→20:51)
[2020-12-12] MEDS: POLYETHYLENE (MIRALAX) 17 GM PACK PO SCH ×2 (09:08→20:54)
[2020-12-12] MEDS: Magic Mouthwash 240mL PO SCH ×4 (09:08→22:18)
[2020-12-12] MEDS: FAMOTIDINE 20 MG TAB PO SCH ×2 (09:08→20:52)
[2020-12-12] MEDS: FORMOTEROL 20 MCG/2 ML VIAL NEB SCH ×2 (11:04→19:23)
--- NOTE | 2020-12-12 12:33 | Pharmacy Report ---
Pharmacy Glycemic Short Note 2 - Date of Service December 12, 2020 - Glycemic Short BSG Results (Last 24 hours): 12/11/20 12/11/20 12/12/20 17:11 21:12 05:31 POC Glucose 120 H 250 H 228 H 12/12/20 12/12/20 08:18 12:21 POC Glucose 228 H 221 H OUTPATIENT ANTIDIABETIC REGIMEN: * Basaglar 60 units HS * Ozempic 0.5mg SQ monthly * Metformin ER 1000mg PO BID * HbA1c 6.3% on 09/27/20 ASSESSMENT: 12/12/20 * Patient's BSGs yesterday were [phone] mg/dL. * Patient received 150 units of insulin (60 units of basal and 90 units of bolus). * Fasting BSG today was 228 mg/dL. * Continue morning NPH. Increase PM NPH as fasting elevated with Solu-Medrol 40 mg IV q8. * Further tighten aggressive Novolog due to hyperglycemia with steroids. 12/11/20 * Patient's BSGs yesterday were [phone] mg/dL. * Patient received 117 units of insulin (55 units of basal and 62 units of bolus). * Fasting BSG today was 181 mg/dL. * Continue morning NPH. Increase PM NPH as fasting elevated with Solu-Medrol 40 mg IV q8. * Further tighten aggressive Novolog due to hyperglycemia with steroids. 12/10: * Pt received total of 96 units of insulin yesterday; 54 basal NPH in AM and 42 units bolus. * Dex IV was discontinued and Solu medrol 40 mg IV q8h was started last night at 2200. BSGs trended up to 172 (fasting this AM). * NPH dose was split into two doses; 35 units in the AM with IV solu medrol and 20 units with dinner. Will trial this today and make adjustments tomorrow. * Novolog parameters continued the same. 12/08: * Continuing current parameters, monitor for changes 12/07 * Patients BSGs much improved with increased NPH dosing. Will continue with cur rent regimen. Novolog CF was tightened slightly this morning . * Patient continues on dex 4 IV and is tolerating a diet. 12/05 * Patient fasting BSG trending up, will monitor. Post prandials [phone] yesterday. Will increase NPH by ~10% and tighten CF. * Today's lunch BSG elevated at 252. However this may be falsely elevated to some extent given only 2 hours between AM NovoLog and lunch BSG draw. Will monitor today's trend before making any further changes * Patient continues on steroids and is tolerating a diet. 12/04 * BSGs [phone] mg/dL with 96 units of insulin on board * Fasting 111 mg/dL this morning, continue NPH with dexamethasone * Carb ratio tightened to 3 yesterday, improved lunch BSG today, will keep same for now 12/03 * Patient's BSGs yesterday were [phone] mg/dL. * Patient received 100 units of insulin (44 units of basal and 56 units of bolus). * Fasting BSG today was 104 mg/dL. * Continue to hold Lantus. * Dexamethasone continued today with a decreased dose of 4 mg. Since NPH was not sufficient with dexamethasone 6 mg, this dose will probably be sufficient with less dexamethasone so continue with NPH 44 units. * Continue aggressive Novolog due to hyperglycemia with steroids. PLAN FOR INPATIENT GLYCEMIC CONTROL: * Hold outpatient Metformin and Ozempic diabetes medications * Basal insulin * NPH 35 units SQ with IV Solu medrol AM dose * NPH 35 units SQ with dinner. * Bolus insulin * NovoLog per scale ACHS or Q6hrs while NPO * Goal Range: Low 110 mg/dL - High 140 mg/dL * Correction Factor: 10 mg/dL/unit * Nutritional / Prandial insulin per carb ratio of 1 unit per 1.5 grams CHO consumed PLAN FOR DISCHARGE: * A1c 6.3% at goal. Continue home regimen assuming frequent hypoglycemia as an outpatient is not occurring and assuming no contraindications exist at disch arge
[2020-12-12] MEDS: cefTRIAXone SODIUM 2,000 MG in DEXTROSE 5% 50 ML IV SCH (13:06)
[2020-12-12 13:30] LABS: Base Excess ABG -1.4 mEq/L (-9-1.8); HCO3 ABG 22 mmol/L (19-24); Oxygen Saturation ABG 95.6 % (90-95); PCO2 ABG 34 mmHg (35-46); PO2 ABG 73 mmHg (80-95); pH ABG 7.44 (7.35-7.45)
[2020-12-12 13:33] LABS: Allen Test Pos (Pos)
--- NOTE | 2020-12-12 13:55 | XRay Report ---
XR chest 1V portable HISTORY: 55 years-old Female Increased hypoxia acute hypoxia COMPARISON: Chest radiograph 12/09/2020, CTA chest 12/08/2020 TECHNIQUE: Portable AP view of the chest FINDINGS: Cardiomediastinal and hilar silhouettes are unchanged. Extensive bilateral airspace opacities are red emonstrated and have mildly improved. Mild right hemidiaphragmatic elevation. No pneumothorax or pleu ral effusion. No acute fracture. IMPRESSION: Mild improvement of the extensive bilateral airspace opacities suggestive of viral pneumo gina. ACT 112: Negative or not required by law. The above report was generated using voice recognition software. It may contain grammatical, syntax o r spelling errors. Electronically signed by: Catrachito Foote M.D. 12/12/2020 1:54 PM
[2020-12-12 14:05] LABS: C Reactive Protein 0.76 mg/dl (0-0.29)
--- NOTE | 2020-12-12 15:03 | Hospitalist Progress Note ---
Date of Service December 12, 2020 Assessment & Plan (1) Acute respiratory failure with hypoxia: Plan: patient was on Vapotherm for a long time, down to wall high flow by the end of last week was doing well, down to 3L on 12/08 but then required more oxygen, up to 9L at one point CTA chest 12/08 without PE currently on Solu Medrol 40mg q8, scheduled nebulizers will add back Lasix 20mg IV daily, great response appreciate pulmonary input today she has been on 6L, goes up to 10-11L on exertion but recovers OOB in the chair, looks better, breathing easier try to get down to 2-3L, suspect she will need oxygen a long time work up on 12/12: pH is 7.4, CO2 34, PaO2 73 procalcitonin, BNP, CRP normal CXR is improving (2) Pneumonia due to 2019 novel coronavirus: Plan: SEVERE COVID pneumonia, hospitalized since 11/18/20 able to come off respiratory isolation likely will need rehab, extreme exertional fatigue complete 14 days of baricitinib completed extended course of dexamethasone IV, changed to Solu Medrol on 12/08 when oxygen requirements went back up, treating asthma Completed 5-day course of Remdesivir. CRP initially high but improved with steroids/baricitinib. Continue aggressive pulmonary toilet. Nebs [place], helping the most with cough tessalon 200mg TID, mucinex 600mg BID, guaitussin ac q6h prn. 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 albuterol nebulizers and steroids follows w/ Dr Sina Estrada outpatient (4) UTI (urinary tract infection): Plan: Klebsiella and proteus uti found, on rocephin which is good for sensitiities complete 7 days as is a catheter associated uti finish 12/15 (5) Right lower quadrant abdominal pain: Plan: This is now coalesced into a large retroperitoneal bleed 19 x [address] scan from 12/06/2020. Hemoglobin did drop making his acute blood loss anemia from 12.9 g to 7.3 g. Patient transfused 2 units packed red blood cells. Patient had enoxaparin stopped on the aspirin stopped on the HGB remains stable after 2 units, it is 10 today no abdominal pain, much more comfortable heparin SC resumed for DVT prophylaxis (6) Acute kidney injury: Plan: resolved, Cr at 0.[address] scan on 12/06 shows extrinsic compression of bilateral ureters with mild hydronephrosis seen making urine via meyer resume Lasix 20mg IV daily, great response (7) Acute blood loss anemia: Plan: Acute blood loss anemia from abdominal musculature hematoma and large retroperitoneal hematoma this likely occurred due to coughing and abdominal wall stressors while being on anticoagulation of Lovenox 0.5 mg/kg subcu twice daily Hb is 10, has been stable ever since transfusion, no further evidence of bleeding (8) Constipation: Plan: senna + miralax no obstruction or ileus on KUB 11/29 Resolved constipation, had a BM today (9) Type 2 diabetes mellitus with insulin therapy: Plan: Glycemic recs appreciated from the pharmacy team. Glycemic management appears to be much improved Cont NPH, lantus, and novolog. HbA1c <6.5% in September. Control adequate, monitor for hypoglycemia and hyperglycemia, no episodes the past 24 hours (10) Morbid obesity: Plan: risk factor for covid morbidity BMI has improved s/p diuresis BMI high 30s (11) Hypertension: Plan: cont metoprolol. hold aldactone. (12) GERD (gastroesophageal reflux disease): Plan: Protonix BID with vomiting H2 susan. (13) Atrial flutter, paroxysmal: Plan: History of. No a.fib/flutter while here. (14) DVT prophylaxis: Plan: Patient is sequential compression devices. restart heparin sc High risk of VTE given severity of COVID illness, famHx of VTE, etc. Admission and Anticipated Discharge Date Admission Date: November 18, 2020 Subjective patient doing well, breathing is about the same as yesterday comfortable at rest, gets short of breath, desaturates on exertion eating well, had a BM this afternoon, no fever/chills, no abdominal pain reviewed labs, Hb is 10, WBC is 16.9, Cr normal, electrolytes stable appreciate pulmonary note, CRP is < 1, procalcitonin is normal, BNP is < 200, ABG shows pH of 7.4, CO2 in 30's and PaO2 in 70's CXR shows some mild improvement in infiltrates I updated Reyes over the phone, answered his questions discussed with patient, goal is to get out by maybe end of the week, go to rehab to get stronger Review of Systems Review of Systems: All systems reviewed & are unremarkable except as noted in Subjective Respiratory: + cough, + dyspnea and + dyspnea on exertion Physical Exam Physical Exam: General: well developed, obese female, no distress, comfortable Neck: supple, trachea midline, normal thyroid Lungs: + cough, no wheezing, no crackles, normal effort, no accessory muscles Heart: regular S1 and S2, no murmur, peripheral pulses normal, capillary refill normal, no edema Abdomen: soft, no tenderness, non distended, normal bowel sounds, tympanic to percussion Extremities: normal in appearance, no cyanosis, no petechiae, strength is 5/5 bilaterally Neuro: awake, cooperative, moves all extremities, no focal motor deficits, CN II-XII intact, sensation in extremities intact, normal speech Skin: warm, dry, no rash, normal turgor Psych: Awake, alert oriented x 3, anxious affect Results & Data Results & Data ([facility]) Vital Signs (Past 12 Hours) Vital Signs Temp Pulse Resp BP Pulse Ox 12/12/20 11:04 74 16 96 12/12/20 07:19 36.7 C 76 16 119/76 92 12/12/20 07:10 72 18 97 Laboratory Results Laboratory Results - last 24 hr 12/11/20 12/11/20 12/12/20 17:11 21:12 05:31 WBC RBC Hgb Hct MCV MCH MCHC RDW Std Deviation RDW Coeff of Sheridan Plt Count MPV Absolute Nucleated RBC Nucleated RBC % (auto) ABG pH ABG pCO2 ABG pO2 ABG HCO3 ABG O2 Saturation ABG Base Excess Jamar Test Barometric Pressure Oxygen Given POC Glucose 120 H 250 H 228 H C-Reactive Protein NT-Pro-B Natriuret Pep Procalcitonin 12/12/20 12/12/20 12/12/20 06:03 06:06 08:18 WBC 16.98 H RBC 3.36 L Hgb 10.0 L Hct 31.8 L MCV 94.6 MCH 29.8 MCHC 31.4 L RDW Std Deviation 57.3 H RDW Coeff of Sheridan 18.0 H Plt Count 254 MPV 9.1 Absolute Nucleated RBC 0.15 H Nucleated RBC % (auto) 0.9 ABG pH ABG pCO2 ABG pO2 ABG HCO3 ABG O2 Saturation ABG Base Excess Jamar Test Barometric Pressure Oxygen Given POC Glucose 228 H C-Reactive Protein 0.76 H NT-Pro-B Natriuret Pep 120 Procalcitonin 12/12/20 12/12/20 12/12/20 12:21 13:13 13:18 WBC RBC Hgb Hct MCV MCH MCHC RDW Std Deviation RDW Coeff of [place] Plt Count MPV Absolute Nucleated RBC Nucleated RBC % (auto) ABG pH 7.44 ABG pCO2 34 L ABG pO2 73 L ABG HCO3 22 ABG O2 Saturation 95.6 H ABG Base Excess -1.4 Jamar Test Pos Barometric Pressure 722.0 Oxygen Given FR11 POC Glucose 221 H C-Reactive Protein NT-Pro-B Natriuret Pep Procalcitonin < 0.05 Diagnostic Findings XR chest 1V portable HISTORY: 55 years-old Female Increased hypoxia acute hypoxia COMPARISON: Chest radiograph 12/09/2020, CTA chest 12/08/2020 TECHNIQUE: Portable AP view of the chest FINDINGS: Cardiomediastinal and hilar silhouettes are unchanged. Extensive bilateral airspace opacities are redemonstrated and have mildly improved. Mild right hemidiaphragmatic elevation. No pneumothorax or pleural effusion. No acute fracture. IMPRESSION: Mild improvement of the extensive bilateral airspace opacities suggestive of viral pneumonia. Medications Administered Current Inpatient Medications Acetaminophen (Acetaminophen 325 Mg Tab) 650 mg PO Q4H PRN PRN Reason: Pain or Fever Stop: 12/18/20 16:10 Last Admin: 12/11/20 14:39 Dose: 650 mg Documented by: Albuterol (Albut/Ipratrop 3mg/0.5mg Neb 3 Ml Vial) 3 ml NEB Q4R GIANNA Stop: 01/06/21 14:59 Last Admin: 12/12/20 11:03 Dose: 3 ml Documented by: Albuterol (Albuterol 0.083% Nebu Soln 3 Ml Vial) 2.5 mg NEB Q2H PRN PRN Reason: sob Stop: 01/08/21 10:16 Benzonatate (Benzonatate 100 Mg Capsule) 200 mg PO TID GIANNA Stop: 12/21/20 11:09 Last Admin: 12/12/20 13:06 Dose: 200 mg Documented by: Bisacodyl (Bisacodyl 10 Mg Supp) 10 mg MN DAILY PRN PRN Reason: Constipation Stop: 12/31/20 10:27 Last Admin: 12/01/20 12:29 Dose: 10 mg Documented by: Bupropion HCl (Bupropion Sr 100 Mg Tabcr) 200 mg PO BID [facility] Stop: 12/18/20 20:59 Last Admin: 12/12/20 08:41 Dose: 200 mg Documented by: Nystatin 30 ml/ Dexamethasone 3.75 mg/ Diphenhydramine HCl 300 mg/ Sucrose 45 ml/Microcrystalline Cellulose 45 ml/ BARCODE IDENTIFIER 1 ea 0 ml PO QID [facility] Stop: 01/10/21 08:59 Last Admin: 12/12/20 12:47 Dose: 5 ml Documented by: Cyanocobalamin (Cyanocobalamin 500 Mcg Tablet (Vitamin B-12)) 2,500 mcg PO QAM [facility] Stop: 12/19/20 08:59 Last Admin: 12/12/20 08:42 Dose: 2,500 mcg Documented by: Dextromethorphan Polymer Complex (Dextromethorphan Polymr Complx 30 Mg/5 Ml Udp) 30 mg PO Q6H PRN PRN Reason: Cough Stop: 12/18/20 19:47 Last Admin: 12/12/20 05:39 Dose: 30 mg Documented by: Dextrose (Dextrose 50% 50 Ml Syringe) 25 - 50 ml IV UD PRN; Protocol PRN Reason: Hypoglycemia Protocol Stop: 12/19/20 07:29 Diclofenac Sodium (Diclofenac Sod 1% Gel 100 Gm Tube) 4 gm EXT Q12 GIANNA Stop: 12/19/20 20:59 Last Admin: 12/12/20 08:45 Dose: 4 gm Documented by: Famotidine (Famotidine 20 Mg Tab) 20 mg PO BID [facility] Stop: 01/04/21 20:59 Last Admin: 12/12/20 09:08 Dose: 20 mg Documented by: Fluticasone Furoate (Fluticasone Furoate 200mcg 14 Puffs/Inhaler) 1 puffs INH DAILY [facility]; Protocol Stop: 12/21/20 11:59 Last Admin: 12/12/20 08:44 Dose: 1 puffs Documented by: Formoterol Fumarate (Formoterol 20 Mcg/2 Ml Vial) 20 mcg NEB BIDR [facility] Stop: 01/09/21 13:14 Last Admin: 12/12/20 11:04 Dose: Not Given Documented by: Glucagon (Glucagon For Inj 1 Mg Vial) 1 mg IM UD PRN; Protocol PRN Reason: Hypoglycemia Protocol Stop: 12/19/20 07:29 Glucose (Glucose 40% Gel 15 Gm Tube) 15 - 30 gm PO UD PRN; Protocol PRN Reason: Hypoglycemia Protocol Stop: 12/19/20 07:29 Glucose (Glucose 10 Tabs/Tube) 4 - 8 tabs PO UD PRN; Protocol PRN Reason: Hypoglycemia Protocol Stop: 12/19/20 07:29 Guaifenesin (Guaifenesin 600 Mg Tabcr) 600 mg PO Q12 [facility] Stop: 12/21/20 20:59 Last Admin: 12/12/20 08:44 Dose: 600 mg Documented by: Guaifenesin/Codeine Phosphate (Guaifenesin/Codeine 100mg/10mg 5ml Udc) 5 ml PO Q6H PRN PRN Reason: Cough Stop: 12/21/20 11:08 Last Admin: 12/04/20 12:50 Dose: 5 ml Documented by: Heparin Sodium (Porcine) (Heparin Sod 5,000 Unit/0.5 Ml Vial) 5,000 units SQ Q12 [facility] Stop: 01/08/21 20:59 Last Admin: 12/12/20 08:43 Dose: 5,000 units Documented by: Hydromorphone HCl (Hydromorphone Inj 1 Mg/Ml Syringe) 1 mg IV Q4H PRN PRN Reason: Pain Stop: 12/18/20 15:09 Last Admin: 12/05/20 22:44 Dose: 1 mg Documented by: Lorazepam (Ativan) 0.25 mg in 0.5 mls @ 0.5 mls/min IV Q6H PRN PRN Reason: anxiety Stop: 12/25/20 15:09 Last Admin: 12/04/20 19:29 Dose: 0.5 mls/min Documented by: Ceftriaxone Sodium 2,000 mg/ (Dextrose) 70 mls @ 100 mls/hr IV DAILY@1400 GIANNA; Protocol Stop: 12/15/20 13:59 Last Infusion: 12/12/20 13:38 Dose: Infused Documented by: Methylprednisolone 40 mg/ (Syringe) 0.64 mls @ 1.5 mls/min IV Q8 [facility] Stop: 01/08/21 21:59 Last Admin: 12/12/20 13:06 Dose: 1.5 mls/min Documented by: Insulin Aspart (Insulin Aspart 100 Units/Ml 3 Ml Pen) 0 units SC ACHS [facility]; Protocol Stop: 12/28/20 11:29 Last Admin: 12/12/20 12:46 Dose: 39 units Documented by: Insulin Human NPH (Insulin Human Nph) 35 units SC DAILY@0600 [facility]; Protocol Stop: 01/09/21 08:29 Last Admin: 12/12/20 05:33 Dose: 35 units Documented by: Insulin Human NPH (Insulin Human Nph) 35 units SC QDD [facility]; Protocol Stop: 01/11/21 16:29 Lidocaine (Lidocaine 5% 1 Patch) 1 patch TD QAM [facility] Stop: 12/19/20 09:59 Last Admin: 12/12/20 08:45 Dose: 1 patch Documented by: Lorazepam (Lorazepam 0.5 Mg Tab) 0.5 mg PO Q6H PRN PRN Reason: Anxiety Stop: 12/18/20 19:50 Last Admin: 12/12/20 09:08 Dose: 0.5 mg Documented by: Magnesium Citrate (Magnesium Citrate 296 Ml/Btl) 50 ml PO DAILY PRN PRN Reason: No BM w/in 48 hours Stop: 01/01/21 21:01 Menthol (Cough Drop (Sugar Free) Anahy 24 Anahy/1 Box) 1 anahy BUCCAL Q1H PRN PRN Reason: Sore Throat Stop: 12/23/20 16:29 Last Admin: 11/29/20 12:52 Dose: 1 anahy Documented by: Metoprolol Tartrate (Metoprolol Tartrate 25 Mg Tab) 75 mg PO BID [facility] Stop: 12/18/20 20:59 Last Admin: 12/12/20 08:43 Dose: 75 mg Documented by: Miscellaneous (Carbohydrates For Hypoglycemia ) 15 - 30 gm PO UD PRN PRN Reason: Hypoglycemia Treatment Stop: 12/19/20 07:29 Miscellaneous (Remove Lidoderm Patch) 1 ea N/A DAILY@2100 [facility] Stop: 12/19/20 20:59 Last Admin: 12/11/20 19:49 Dose: Not Given Documented by: Miscellaneous Information (Pharmacy Glycemic Mgmt Consult) 1 ea N/A UD PRN PRN Reason: Consult Stop: 12/18/20 16:10 Montelukast Sodium (Montelukast Sodium 10 Mg Tablet) 10 mg PO QPM [facility] Stop: 12/18/20 20:59 Last Admin: 12/11/20 19:49 Dose: 10 mg Documented by: Mupirocin (Mupirocin 2% Oint 22 Gm Tube) 1 appln EXT Q12 GIANNA Stop: 12/19/20 20:59 Last Admin: 12/12/20 08:46 Dose: 1 appln Documented by: Ondansetron HCl (Ondansetron Inj 2 Mg/Ml 2 Ml Vial) 4 mg IV Q6H PRN PRN Reason: Nausea Stop: 12/18/20 16:10 Last Admin: 12/01/20 08:01 Dose: 4 mg Documented by: Pantoprazole Sodium (Pantoprazole 40 Mg Tab) 40 mg PO BID GIANNA Stop: 01/04/21 20:59 Last Admin: 12/12/20 08:42 Dose: 40 mg Documented by: Polyethylene Glycol (Polyethylene (Miralax) 17 Gm Pack) 17 gm PO BID GIANNA Stop: 01/01/21 20:59 Last Admin: 12/12/20 09:08 Dose: 17 gm Documented by: Potassium Chloride (Potassium Chloride Crtab 20 Meq Tabcr) 40 meq PO BID [facility] Stop: 01/08/21 20:59 Last Admin: 12/12/20 08:40 Dose: 40 meq Documented by: Sennosides (Senna 8.6 Mg Tab) 17.2 mg PO QAM [facility] Stop: 12/24/20 14:59 Last Admin: 12/12/20 08:42 Dose: 17.2 mg Documented by: Sodium Chloride (Sodium Chloride 0.65% Na Soln 45 Ml ([place])) 2 sprays NA Q1H PRN PRN Reason: dryness of nose Stop: 12/23/20 16:40 Last Admin: 12/01/20 08:02 Dose: 2 sprays Documented by: Sumatriptan Succinate (Sumatriptan Succinate 100 Mg Tab) 100 mg PO UD PRN PRN Reason: migraine/headache Stop: 01/07/21 04:52 Last Admin: 12/11/20 20:26 Dose: 100 mg Documented by: PG Care Time/CCT Total # of Minutes Spent Total Time Spent with Patient: Total time spent is greater than 50% in coordination of care (as documented) at patient's floor/unit and/or counseling patient: Coding Level of Care Code 29801 Subseq Hosp Care Lvl 3 Diagnoses Acute respiratory failure with hypoxia J96.01 Pneumonia due to 2019 novel coronavirus U07.1; J12.82 Asthma J45.909 UTI (urinary tract infection) N39.0 Right lower quadrant abdominal pain R10.31 Acute kidney injury N17.9 Acute blood loss anemia D62 Constipation K59.00 Type 2 diabetes mellitus with insulin therapy E11.9; Z79.4 Morbid obesity E66.01 Hypertension I10 GERD (gastroesophageal reflux disease) K21.9 Atrial flutter, paroxysmal I48.92 DVT prophylaxis Z29.9
[2020-12-12] MEDS ORDERED: FUROSEMIDE INJ 20 MG/2 ML VIAL IV ONE (15:49)
--- NOTE | 2020-12-12 15:55 | Pulmonology Progress Note ---
Date of Service December 12, 2020 Assessment & Plan (1) Pneumonia due to 2019 novel coronavirus: (2) Acute respiratory failure with hypoxia: (3) Morbid obesity: (4) Asthma: Plan: Attending: Dr. Billings Impression: Is a 55-year-old female that was admitted for COVID-19 / ARDs. She has struggled with recovery and continues to have multifocal opacities that have been persistent since being admitted with the Covid virus/ARDS. Oxygenation seem to improve and then yesterday she required up to 11 L/min. We were asked to reevaluate patient today. Recommendations: 1. COVID-19/ARDs: Acute process has been treated. At this point patient is a postinflammatory recovery period. She continues to have hypoxia but does seem to be improving. She is increasing ambulation with physical therapy but only for short periods. Would continue with cough suppression. We will also continue with diuretics to maintain negative fluid balance. Procalcitonin is negative. No further need for antibiotics. CRP is also decreased showing slow improvement. We will continue PT/OT as appropriate. Encourage increased activity. Continue incentive spirometry. At this point, there is nothing further to add from a pulmonary perspective. Patient completed course of baricitinib and dexamethasone. Patient refused remdesivir during initial period. Continue supportive care for resolving ARDs. Chest x-ray as listed above with persistent multifocal opacities. Possibly minimal improvement from prior 2. Morbid obesity/probable JIMY: Continue BiPAP/CPAP as tolerated. Would refer for polysomnography on discharge after recovery period of 3 to 4 months. The pulmonary service will sign off at this time. Please feel free to reconsult as needed. Admission and Anticipated Discharge Date Admission Date: November 18, 2020 Subjective Attending: Dr. Billings Patient seen and examined at bedside. She has minimal distress. She is curr ently requiring 6 L/min via nasal cannula to maintain saturations low 90s. She continues to have a nonproductive cough which is exacerbated by deep inspiration. She denies any fever chills or sweats. She does state that occasionally she has some night sweats but very sporadic. She has not had to change her bed clothes or linens. She has no chest pain or tightness that is new. She has no other signs or symptoms of pulmonary embolus. She has no asymmetrical edema of her lower extremities. She gets very tired just moving from bed to chair. She continues to work with physical therapy with difficulty due to dyspnea with exertion. She has no chest pain with exertion. She has no other acute complaints. She denies nausea or vomiting, diarrhea, headache, vision changes, dysphagia, or other complaints. Review of Systems Review of Systems: All systems reviewed & are unremarkable except as noted in Subjective Physical Exam Physical Exam: GENERAL : No acute distress. Pleasant. Some conversational dyspnea EYES: No icterus, gaze conjugate NOSE: No evidence of epistaxis. Nasal cannula in place. MOUTH: No lesions or candidiasis. Mucosa moist. NECK: Supple LUNGS: Very distant breath sounds. No rales rhonchi or bronchospasm appreciated. HEART: Regular, rate controlled ABDOMEN: Soft, NT, ND, BS Present EXTREMITIES: No LE edema, pedal pulses intact NEURO: A&OX3 Results & Data Results & Data ([facility]) Vital Signs (Past 12 Hours) Vital Signs Temp Pulse Resp BP Pulse Ox 12/12/20 15:30 37.1 C 75 16 119/75 93 12/12/20 15:16 88 26 H 86 L 12/12/20 11:04 74 16 96 12/12/20 07:19 36.7 C 76 16 119/76 92 12/12/20 07:10 72 18 97 Laboratory Results 12/12/20 06:06 12/11/20 05:46 Laboratory Tests 12/12/20 12/12/20 06:03 13:13 C-Reactive Protein 0.76 H NT-Pro-B Natriuret Pep 120 Procalcitonin < 0.05 Diagnostic Findings Chest X-Ray 12/12/20 12:58 XR chest 1V portable HISTORY: 55 years-old Female Increased hypoxia acute hypoxia COMPARISON: Chest radiograph 12/09/2020, CTA chest 12/08/2020 TECHNIQUE: Portable AP view of the chest FINDINGS: Cardiomediastinal and hilar silhouettes are unchanged. Extensive bilateral airspace opacities are redemonstrated and have mildly improved. Mild right hemidiaphragmatic elevation. No pneumothorax or pleural effusion. No acute fracture. IMPRESSION: Mild improvement of the extensive bilateral airspace opacities suggestive of viral pneumonia. ACT 112: Negative or not required by law. The above report was generated using voice recognition software. It may contain grammatical, syntax or spelling errors. Electronically signed by: Catrachito Foote M.D. 12/12/2020 1:54 PM PG Care Time/CCT Total # of Minutes Spent Total Time Spent with Patient: Total time spent is greater than 50% in coordination of care (as documented) at patient's floor/unit and/or counseling patient: 40 minutes Coding Level of Care Code 44966 Subseq Hosp Care Lvl 3 Diagnoses Pneumonia due to 2019 novel coronavirus U07.1; J12.82 Acute respiratory failure with hypoxia J96.01 Morbid obesity E66.01 Asthma J45.909 Time Spent (min) 40
[2020-12-12] MEDS ORDERED: INSULIN HUMAN NPH SC SCH (16:30)
[2020-12-12] MEDS: SUMAtriptan succinate 100 MG TAB PO PRN (20:38)
[2020-12-12] MEDS: MONTELUKAST SODIUM 10 MG TABLET PO SCH (20:53)
[2020-12-13] MEDS: ALBUT/IPRATROP 3MG/0.5MG NEB 3 ML VIAL NEB SCH ×6 (03:40→22:14)
[2020-12-13] MEDS: INSULIN HUMAN NPH SC SCH ×2 (06:57→17:45)
[2020-12-13] MEDS: methylPREDNISolone 40 MG in SYRINGE 0 ML IV SCH ×2 (06:59→22:34)
[2020-12-13] MEDS: FORMOTEROL 20 MCG/2 ML VIAL NEB SCH ×2 (07:11→19:12)
[2020-12-13] MEDS: guaiFENesin 600 MG TABCR PO SCH ×2 (09:18→22:34)
[2020-12-13] MEDS: METOPROLOL TARTRATE 25 MG TAB PO SCH ×2 (09:18→22:33)
[2020-12-13] MEDS: SENNA 8.6 MG TAB PO SCH (09:18)
[2020-12-13] MEDS: FLUTICASONE FUROATE 200MCG 14 PUFFS/INHALER INH SCH (09:19)
[2020-12-13] MEDS: PANTOprazole 40 MG TAB PO SCH ×2 (09:19→22:34)
[2020-12-13] MEDS: buPROPion SR 100 MG TABCR PO SCH ×2 (09:19→22:31)
[2020-12-13] MEDS: POTASSIUM CHLORIDE CRTAB 20 MEQ TABCR PO SCH ×2 (09:19→22:32)
[2020-12-13] MEDS: DICLOFENAC SOD 1% GEL 100 GM TUBE EXT SCH ×2 (09:20→22:35)
[2020-12-13] MEDS: CYANOCOBALAMIN 500 MCG TABLET (VITAMIN B-12) PO SCH (09:20)
[2020-12-13] MEDS: HEPARIN SOD 5,000 UNIT/0.5 ML VIAL SQ SCH ×2 (09:21→22:35)
[2020-12-13] MEDS: LIDOCAINE 5% 1 PATCH TD SCH (09:21)
[2020-12-13] MEDS: MUPIROCIN 2% OINT 22 GM TUBE EXT SCH ×2 (09:22→22:36)
[2020-12-13] MEDS: BENZONATATE 100 MG CAPSULE PO SCH ×3 (09:36→22:42)
[2020-12-13] MEDS: Magic Mouthwash 240mL PO SCH ×4 (09:37→22:43)
[2020-12-13] MEDS: POLYETHYLENE (MIRALAX) 17 GM PACK PO SCH ×2 (09:37→22:43)
[2020-12-13] MEDS: FAMOTIDINE 20 MG TAB PO SCH ×2 (09:37→22:42)
[2020-12-13] MEDS: INSULIN ASPART 100 UNITS/ML 3 ML PEN SC SCH ×4 (09:39→22:48)
[2020-12-13] MEDS: DEXTROMETHORPHAN POLYMR COMPLX 30 MG/5 ML UDP PO PRN (10:00)
[2020-12-13] MEDS ORDERED: FUROSEMIDE INJ 20 MG/2 ML VIAL IV ONE (12:23)
--- NOTE | 2020-12-13 12:40 | Hospitalist Progress Note ---
Date of Service December 13, 2020 Assessment & Plan (1) Acute respiratory failure with hypoxia: Plan: patient was on Vapotherm for a long time, down to wall high flow by the end of last week was doing well, down to 3L on 12/08 but then required more oxygen, up to 9L at one point CTA chest 12/08 without PE currently on Solu Medrol 40mg q8, scheduled nebulizers cut Solu Medrol to q12 today will add back Lasix 20mg IV daily, great response, repeat BMP tomorrow appreciate pulmonary input today she remains stable on 6L, goes up to 9L on exertion but recovers OOB in the chair, looks better, breathing easier try to get down to 2-3L, suspect she will need oxygen a long time work up on 12/12: pH is 7.4, CO2 34, PaO2 73 procalcitonin, BNP, CRP normal CXR is improving pulmonary signed off, she can follow up with them in clinic check CBC and BMP tomorrow ultimate goal is [facility], might be ready by the weekend (2) Pneumonia due to 2019 novel coronavirus: Plan: SEVERE COVID pneumonia, hospitalized since 11/18/20 able to come off respiratory isolation likely will need rehab, extreme exertional fatigue complete 14 days of baricitinib completed extended course of dexamethasone IV, changed to Solu Medrol on 12/08 when oxygen requirements went back up, treating asthma Completed 5-day course of Remdesivir. CRP initially high but improved with steroids/baricitinib. Continue aggressive pulmonary toilet. Nebs [place], helping the most with cough tessalon 200mg TID, mucinex 600mg BID, guaitussin ac q6h prn. 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 albuterol nebulizers and steroids, cut Solu Medrol to q12 follows w/ Dr Sina Estrada outpatient (4) UTI (urinary tract infection): Plan: Klebsiella and proteus uti found, on rocephin which is good for sensitiities complete 7 days as is a catheter associated uti finish 12/15 (5) Right lower quadrant abdominal pain: Plan: This is now coalesced into a large retroperitoneal bleed 19 x [address] scan from 12/06/2020. Hemoglobin did drop making his acute blood loss anemia from 12.9 g to 7.3 g. Patient transfused 2 units packed red blood cells. Patient had enoxaparin stopped on the aspirin stopped on the HGB remains stable after 2 units, it is 10 on 12/12 no abdominal pain, much more comfortable heparin SC resumed for DVT prophylaxis (6) Acute kidney injury: Plan: resolved, Cr at 0.[address] scan on 12/06 shows extrinsic compression of bilateral ureters with mild hydronephrosis seen making urine via meyer resume Lasix 20mg IV daily, great response (7) Acute blood loss anemia: Plan: Acute blood loss anemia from abdominal musculature hematoma and large retroperitoneal hematoma this likely occurred due to coughing and abdominal wall stressors while being on anticoagulation of Lovenox 0.5 mg/kg subcu twice daily Hb is 10, has been stable ever since transfusion, no further evidence of bleeding (8) Constipation: Plan: senna + miralax no obstruction or ileus on KUB 11/29 Resolved constipation, had a BM 12/12 (9) Type 2 diabetes mellitus with insulin therapy: Plan: Glycemic recs appreciated from the pharmacy team. Glycemic management appears to be much improved Cont NPH, lantus, and novolog. HbA1c <6.5% in September. Control adequate, monitor for hypoglycemia and hyperglycemia, no episodes the past 24 hours (10) Morbid obesity: Plan: risk factor for covid morbidity BMI has improved s/p diuresis BMI high 30s (11) Hypertension: Plan: cont metoprolol. hold aldactone. (12) GERD (gastroesophageal reflux disease): Plan: Protonix BID with vomiting H2 susan. (13) Atrial flutter, paroxysmal: Plan: History of. No a.fib/flutter while here. (14) DVT prophylaxis: Plan: Patient is sequential compression devices. restart heparin sc High risk of VTE given severity of COVID illness, famHx of VTE, etc. Admission and Anticipated Discharge Date Admission Date: November 18, 2020 Subjective patient says she had a rough morning, coughing a lot, could not stop, very worn out PT came to see her, will have them come back this afternoon currently at 9L sitting in the chair, but they turned her up to stand and pivot, got her down to 6L while in the room eating well, making a lot of urine via the meyer no labs today we discussed the ultimate goal of going to [facility], she is nervous, does not want to go too soon I assured her that I will not feel good about her going until she is on less oxygen, we need to wean Solu Medrol cut Solu Medrol to q12 today will update her later today Review of Systems Review of Systems: All systems reviewed & are unremarkable except as noted in Subjective Respiratory: + cough, + dyspnea and + dyspnea on exertion; no chest congestion, no pain with cough and no sputum production Physical Exam Physical Exam: General: well developed, obese female, no distress, comfortable Neck: supple, trachea midline, normal thyroid Lungs: + cough, no wheezing, no crackles, normal effort, no accessory muscles Heart: regular S1 and S2, no murmur, peripheral pulses normal, capillary refill normal, no edema Abdomen: soft, no tenderness, non distended, normal bowel sounds, tympanic to percussion Extremities: normal in appearance, no cyanosis, no petechiae, strength is 5/5 bilaterally Neuro: awake, cooperative, moves all extremities, no focal motor deficits, CN II-XII intact, sensation in extremities intact, normal speech Skin: warm, dry, no rash, normal turgor Psych: Awake, alert oriented x 3, anxious affect Results & Data Results & Data ([facility]) Vital Signs (Past 12 Hours) Vital Signs Temp Pulse Resp BP Pulse Ox 12/13/20 11:05 84 18 96 12/13/20 07:16 36.7 C 71 18 117/82 100 12/13/20 07:12 72 16 96 12/13/20 03:42 74 15 98 Laboratory Results Laboratory Results - last 24 hr 12/12/20 12/12/20 12/12/20 06:03 13:13 13:18 ABG pH 7.44 ABG pCO2 34 L ABG pO2 73 L ABG HCO3 22 ABG O2 Saturation 95.6 H ABG Base Excess -1.4 Jamar Test Pos Barometric Pressure 722.0 Oxygen Given FR11 POC Glucose C-Reactive Protein 0.76 H NT-Pro-B Natriuret Pep 120 Procalcitonin < 0.05 12/12/20 12/12/20 12/13/20 17:15 20:46 05:47 ABG pH ABG pCO2 ABG pO2 ABG HCO3 ABG O2 Saturation ABG Base Excess Jamar Test Barometric Pressure Oxygen Given POC Glucose 157 H 188 H 110 H C-Reactive Protein NT-Pro-B Natriuret Pep Procalcitonin 12/13/20 12/13/20 08:36 12:30 ABG pH ABG pCO2 ABG pO2 ABG HCO3 ABG O2 Saturation ABG Base Excess Jamar Test Barometric Pressure Oxygen Given POC Glucose 139 H 207 H C-Reactive Protein NT-Pro-B Natriuret Pep Procalcitonin Medications Administered Current Inpatient Medications Acetaminophen (Acetaminophen 325 Mg Tab) 650 mg PO Q4H PRN PRN Reason: Pain or Fever Stop: 12/18/20 16:10 Last Admin: 12/11/20 14:39 Dose: 650 mg Documented by: Albuterol (Albut/Ipratrop 3mg/0.5mg Neb 3 Ml Vial) 3 ml NEB Q4R [facility] Stop: 01/06/21 14:59 Last Admin: 12/13/20 11:04 Dose: 3 ml Documented by: Albuterol (Albuterol 0.083% Nebu Soln 3 Ml Vial) 2.5 mg NEB Q2H PRN PRN Reason: sob Stop: 01/08/21 10:16 Benzonatate (Benzonatate 100 Mg Capsule) 200 mg PO TID [facility] Stop: 12/21/20 11:09 Last Admin: 12/13/20 09:36 Dose: 200 mg Documented by: Bisacodyl (Bisacodyl 10 Mg Supp) 10 mg WA DAILY PRN PRN Reason: Constipation Stop: 12/31/20 10:27 Last Admin: 12/01/20 12:29 Dose: 10 mg Documented by: Bupropion HCl (Bupropion Sr 100 Mg Tabcr) 200 mg PO BID [facility] Stop: 12/18/20 20:59 Last Admin: 12/13/20 09:19 Dose: 200 mg Documented by: Nystatin 30 ml/ Dexamethasone 3.75 mg/ Diphenhydramine HCl 300 mg/ Sucrose 45 ml/Microcrystalline Cellulose 45 ml/ BARCODE IDENTIFIER 1 ea 0 ml PO QID [facility] Stop: 01/10/21 08:59 Last Admin: 12/13/20 09:37 Dose: 5 ml Documented by: Cyanocobalamin (Cyanocobalamin 500 Mcg Tablet (Vitamin B-12)) 2,500 mcg PO QAM [facility] Stop: 12/19/20 08:59 Last Admin: 12/13/20 09:20 Dose: 2,500 mcg Documented by: Dextromethorphan Polymer Complex (Dextromethorphan Polymr Complx 30 Mg/5 Ml Udp) 30 mg PO Q6H PRN PRN Reason: Cough Stop: 12/18/20 19:47 Last Admin: 12/13/20 10:00 Dose: 30 mg Documented by: Dextrose (Dextrose 50% 50 Ml Syringe) 25 - 50 ml IV UD PRN; Protocol PRN Reason: Hypoglycemia Protocol Stop: 12/19/20 07:29 Diclofenac Sodium (Diclofenac Sod 1% Gel 100 Gm Tube) 4 gm EXT Q12 [facility] Stop: 12/19/20 20:59 Last Admin: 12/13/20 09:20 Dose: 4 gm Documented by: Famotidine (Famotidine 20 Mg Tab) 20 mg PO BID [facility] Stop: 01/04/21 20:59 Last Admin: 12/13/20 09:37 Dose: 20 mg Documented by: Fluticasone Furoate (Fluticasone Furoate 200mcg 14 Puffs/Inhaler) 1 puffs INH DAILY [facility]; Protocol Stop: 12/21/20 11:59 Last Admin: 12/13/20 09:19 Dose: 1 puffs Documented by: Formoterol Fumarate (Formoterol 20 Mcg/2 Ml Vial) 20 mcg NEB BIDR [facility] Stop: 01/09/21 13:14 Last Admin: 12/13/20 07:11 Dose: Not Given Documented by: Glucagon (Glucagon For Inj 1 Mg Vial) 1 mg IM UD PRN; Protocol PRN Reason: Hypoglycemia Protocol Stop: 12/19/20 07:29 Glucose (Glucose 40% Gel 15 Gm Tube) 15 - 30 gm PO UD PRN; Protocol PRN Reason: Hypoglycemia Protocol Stop: 12/19/20 07:29 Glucose (Glucose 10 Tabs/Tube) 4 - 8 tabs PO UD PRN; Protocol PRN Reason: Hypoglycemia Protocol Stop: 12/19/20 07:29 Guaifenesin (Guaifenesin 600 Mg Tabcr) 600 mg PO Q12 [facility] Stop: 12/21/20 20:59 Last Admin: 12/13/20 09:18 Dose: 600 mg Documented by: Guaifenesin/Codeine Phosphate (Guaifenesin/Codeine 100mg/10mg 5ml Udc) 5 ml PO Q6H PRN PRN Reason: Cough Stop: 12/21/20 11:08 Last Admin: 12/04/20 12:50 Dose: 5 ml Documented by: Heparin Sodium (Porcine) (Heparin Sod 5,000 Unit/0.5 Ml Vial) 5,000 units SQ Q12 [facility] Stop: 01/08/21 20:59 Last Admin: 12/13/20 09:21 Dose: 5,000 units Documented by: Hydromorphone HCl (Hydromorphone Inj 1 Mg/Ml Syringe) 1 mg IV Q4H PRN PRN Reason: Pain Stop: 12/18/20 15:09 Last Admin: 12/05/20 22:44 Dose: 1 mg Documented by: Lorazepam (Ativan) 0.25 mg in 0.5 mls @ 0.5 mls/min IV Q6H PRN PRN Reason: anxiety Stop: 12/25/20 15:09 Last Admin: 12/04/20 19:29 Dose: 0.5 mls/min Documented by: Ceftriaxone Sodium 2,000 mg/ (Dextrose) 70 mls @ 100 mls/hr IV DAILY@1400 [facility]; Protocol Stop: 12/15/20 13:59 Last Infusion: 12/12/20 13:38 Dose: Infused Documented by: Methylprednisolone 40 mg/ (Syringe) 0.64 mls @ 1.5 mls/min IV Q8 [facility] Stop: 01/08/21 21:59 Last Admin: 12/13/20 06:59 Dose: 1.5 mls/min Documented by: Insulin Aspart (Insulin Aspart 100 Units/Ml 3 Ml Pen) 0 units SC ACHS [facility]; Protocol Stop: 12/28/20 11:29 Last Admin: 12/13/20 09:39 Dose: 44 units Documented by: Insulin Human NPH (Insulin Human Nph) 35 units SC DAILY@0600 [facility]; Protocol Stop: 01/09/21 08:29 Last Admin: 12/13/20 06:57 Dose: 35 units Documented by: Insulin Human NPH (Insulin Human Nph) 35 units SC QDD [facility]; Protocol Stop: 01/11/21 16:29 Last Admin: 12/12/20 17:17 Dose: 35 units Documented by: Lidocaine (Lidocaine 5% 1 Patch) 1 patch TD QAM [facility] Stop: 12/19/20 09:59 Last Admin: 12/13/20 09:21 Dose: 1 patch Documented by: Lorazepam (Lorazepam 0.5 Mg Tab) 0.5 mg PO Q6H PRN PRN Reason: Anxiety Stop: 12/18/20 19:50 Last Admin: 12/12/20 09:08 Dose: 0.5 mg Documented by: Magnesium Citrate (Magnesium Citrate 296 Ml/Btl) 50 ml PO DAILY PRN PRN Reason: No BM w/in 48 hours Stop: 01/01/21 21:01 Menthol (Cough Drop (Sugar Free) Anahy 24 Anahy/1 Box) 1 anahy BUCCAL Q1H PRN PRN Reason: Sore Throat Stop: 12/23/20 16:29 Last Admin: 11/29/20 12:52 Dose: 1 anahy Documented by: Metoprolol Tartrate (Metoprolol Tartrate 25 Mg Tab) 75 mg PO BID [facility] Stop: 12/18/20 20:59 Last Admin: 12/13/20 09:18 Dose: 75 mg Documented by: Miscellaneous (Carbohydrates For Hypoglycemia ) 15 - 30 gm PO UD PRN PRN Reason: Hypoglycemia Treatment Stop: 12/19/20 07:29 Miscellaneous (Remove Lidoderm Patch) 1 ea N/A DAILY@2100 [facility] Stop: 12/19/20 20:59 Last Admin: 12/12/20 20:54 Dose: 1 ea Documented by: Miscellaneous Information (Pharmacy Glycemic Mgmt Consult) 1 ea N/A UD PRN PRN Reason: Consult Stop: 12/18/20 16:10 Montelukast Sodium (Montelukast Sodium 10 Mg Tablet) 10 mg PO QPM [facility] Stop: 12/18/20 20:59 Last Admin: 12/12/20 20:53 Dose: 10 mg Documented by: Mupirocin (Mupirocin 2% Oint 22 Gm Tube) 1 appln EXT Q12 [facility] Stop: 12/19/20 20:59 Last Admin: 12/13/20 09:22 Dose: 1 appln Documented by: Ondansetron HCl (Ondansetron Inj 2 Mg/Ml 2 Ml Vial) 4 mg IV Q6H PRN PRN Reason: Nausea Stop: 12/18/20 16:10 Last Admin: 12/01/20 08:01 Dose: 4 mg Documented by: Pantoprazole Sodium (Pantoprazole 40 Mg Tab) 40 mg PO BID [facility] Stop: 01/04/21 20:59 Last Admin: 12/13/20 09:19 Dose: 40 mg Documented by: Polyethylene Glycol (Polyethylene (Miralax) 17 Gm Pack) 17 gm PO BID [facility] Stop: 01/01/21 20:59 Last Admin: 12/13/20 09:37 Dose: 17 gm Documented by: Potassium Chloride (Potassium Chloride Crtab 20 Meq Tabcr) 40 meq PO BID [facility] Stop: 01/08/21 20:59 Last Admin: 12/13/20 09:19 Dose: 40 meq Documented by: Sennosides (Senna 8.6 Mg Tab) 17.2 mg PO QAM [facility] Stop: 12/24/20 14:59 Last Admin: 12/13/20 09:18 Dose: 17.2 mg Documented by: Sodium Chloride (Sodium Chloride 0.65% Na Soln 45 Ml ([place])) 2 sprays NA Q1H PRN PRN Reason: dryness of nose Stop: 12/23/20 16:40 Last Admin: 12/01/20 08:02 Dose: 2 sprays Documented by: Sumatriptan Succinate (Sumatriptan Succinate 100 Mg Tab) 100 mg PO UD PRN PRN Reason: migraine/headache Stop: 01/07/21 04:52 Last Admin: 12/12/20 20:38 Dose: 100 mg Documented by: PG Care Time/CCT Total # of Minutes Spent Total Time Spent with Patient: Total time spent is greater than 50% in coordination of care (as documented) at patient's floor/unit and/or counseling patient: Coding Level of Care Code 21662 Subseq Hosp Care Lvl 2 Diagnoses Acute respiratory failure with hypoxia J96.01 Pneumonia due to 2019 novel coronavirus U07.1; J12.82 Asthma J45.909 UTI (urinary tract infection) N39.0 Right lower quadrant abdominal pain R10.31 Acute kidney injury N17.9 Acute blood loss anemia D62 Constipation K59.00 Type 2 diabetes mellitus with insulin therapy E11.9; Z79.4 Morbid obesity E66.01 Hypertension I10 GERD (gastroesophageal reflux disease) K21.9 Atrial flutter, paroxysmal I48.92 DVT prophylaxis Z29.9
[2020-12-13] MEDS: cefTRIAXone SODIUM 2,000 MG in DEXTROSE 5% 50 ML IV SCH (13:07)
--- NOTE | 2020-12-13 13:25 | Pharmacy Report ---
Pharmacy Glycemic Short Note 2 - Date of Service December 13, 2020 - Glycemic Short BSG Results (Last 24 hours): 12/12/20 12/12/20 12/13/20 17:15 20:46 05:47 POC Glucose 157 H 188 H 110 H 12/13/20 12/13/20 08:36 12:30 POC Glucose 139 H 207 H OUTPATIENT ANTIDIABETIC REGIMEN: * Basaglar 60 units HS * Ozempic 0.5mg SQ monthly * Metformin ER 1000mg PO BID * HbA1c 6.3% on 09/27/20 ASSESSMENT: 12/13/20 * Patient's BSGs yesterday were [phone] mg/dL. * Patient received 187 units of insulin (60 units of basal and 117 units of bolus). This represents an increase of 25% compared to 12/11/20. * Fasting BSG today was 110 mg/dL. * Continue NPH. Solu-Medrol decreased to 40 mg IV q12 but do not expect to see any difference in insulin requirements. * Further tighten aggressive Novolog due to hyperglycemia with steroids at lunch. 12/12/20 * Patient's BSGs yesterday were [phone] mg/dL. * Patient received 150 units of insulin (60 units of basal and 90 units of bolus). * Fasting BSG today was 228 mg/dL. * Continue morning NPH. Increase PM NPH as fasting elevated with Solu-Medrol 40 mg IV q8. * Further tighten aggressive Novolog due to hyperglycemia with steroids. 12/11/20 * Patient's BSGs yesterday were [phone] mg/dL. * Patient received 117 units of insulin (55 units of basal and 62 units of bolus). * Fasting BSG today was 181 mg/dL. * Continue morning NPH. Increase PM NPH as fasting elevated with Solu-Medrol 40 mg IV q8. * Further tighten aggressive Novolog due to hyperglycemia with steroids. 12/10: * Pt received total of 96 units of insulin yesterday; 54 basal NPH in AM and 42 units bolus. * Dex IV was discontinued and Solu medrol 40 mg IV q8h was started last night at 2200. BSGs trended up to 172 (fasting this AM). * NPH dose was split into two doses; 35 units in the AM with IV solu medrol and 20 units with dinner. Will trial this today and make adjustments tomorrow. * Novolog parameters continued the same. 12/08: * Continuing current parameters, monitor for changes 12/07 * Patients BSGs much improved with increased NPH dosing. Will continue with current regimen. Novolog CF was tightened slightly this morning . * Patient continues on dex 4 IV and is tolerating a diet. 12/05 * Patient fasting BSG trending up, will monitor. Post prandials [phone] yesterday. Will increase NPH by ~10% and tighten CF. * Today's lunch BSG elevated at 252. However this may be falsely elevated to some extent given only 2 hours between AM NovoLog and lunch BSG draw. Will monitor today's trend before making any further changes * Patient continues on steroids and is tolerating a diet. 12/04 * BSGs [phone] mg/dL with 96 units of insulin on board * Fasting 111 mg/dL this morning, continue NPH with dexamethasone * Carb ratio tightened to 3 yesterday, improved lunch BSG today, will keep same for now 12/03 * Patient's BSGs yesterday were [phone] mg/dL. * Patient received 100 units of insulin (44 units of basal and 56 units of bolus). * Fasting BSG today was 104 mg/dL. * Continue to hold Lantus. * Dexamethasone continued today with a decreased dose of 4 mg. Since NPH was not sufficient with dexamethasone 6 mg, this dose will probably be sufficient with less dexamethasone so continue with NPH 44 units. * Continue aggressive Novolog due to hyperglycemia with steroids. PLAN FOR INPATIENT GLYCEMIC CONTROL: * Hold outpatient Metformin and Ozempic diabetes medications * Basal insulin * NPH 35 units SQ BIDM * Bolus insulin * NovoLog per scale ACHS or Q6hrs while NPO * Goal Range: Low 110 mg/dL - High 140 mg/dL * Correction Factor: 10 mg/dL/unit * Nutritional / Prandial insulin per carb ratio of 1 unit per 1.5 grams CHO consumed (1.2 grams CHO consumed at breakfast) PLAN FOR DISCHARGE: * A1c 6.3% at goal. Continue home regimen assuming frequent hypoglycemia as an outpatient is not occurring and assuming no contraindications exist at discharge
[2020-12-13] MEDS: MONTELUKAST SODIUM 10 MG TABLET PO SCH (22:33)
[2020-12-14] MEDS: ALBUT/IPRATROP 3MG/0.5MG NEB 3 ML VIAL NEB SCH ×6 (02:45→23:23)
[2020-12-14 06:30] LABS: Hematocrit (blood only) 32.1 % (37-47); Hemoglobin 10.2 g/dL (12.0-16.0); Mean Corpuscular Hemoglobin 29.8 pg (25-34); Mean Corpuscular Hgb Conc 31.8 g/dL (32-36); Mean Corpuscular Volume 93.9 fL (80-100); Mean Platelet Volume 9.3 fL (7.4-10.4); Nucleated RBC # (auto) 0.13 K/uL (0-0); Nucleated RBC % (auto) 0.8 %; Platelet Count 265 K/uL (130-400); RDW Coefficient of Variation 18.2 % (11.5-14.5); RDW Standard Deviation 59.4 fL (36.4-46.3); Red Blood Count 3.42 M/uL (4.2-5.4); White Blood Count 15.46 K/uL (4.8-10.8)
[2020-12-14 06:51] LABS: BUN Creatinine Ratio 29.4 (10-20); Creatinine Clr Calc Pharmacy 108.7 ml/min; Est GFR (African American) 103.1 ml/min; Est GFR (Non-African American) 88.9 ml/min; Potassium 4.7 mmol/L (3.5-5.1)
[2020-12-14] MEDS: FORMOTEROL 20 MCG/2 ML VIAL NEB SCH ×2 (07:14→19:18)
[2020-12-14] MEDS ORDERED: FUROSEMIDE INJ 20 MG/2 ML VIAL IV ONE (07:43)
[2020-12-14] MEDS: INSULIN HUMAN NPH SC SCH ×2 (08:20→18:11)
[2020-12-14] MEDS: INSULIN ASPART 100 UNITS/ML 3 ML PEN SC SCH ×4 (08:21→21:40)
[2020-12-14] MEDS: METOPROLOL TARTRATE 25 MG TAB PO SCH ×2 (08:31→21:34)
[2020-12-14] MEDS: PANTOprazole 40 MG TAB PO SCH ×2 (08:31→21:36)
[2020-12-14] MEDS: SENNA 8.6 MG TAB PO SCH (08:31)
[2020-12-14] MEDS: buPROPion SR 100 MG TABCR PO SCH ×2 (08:31→21:26)
[2020-12-14] MEDS: guaiFENesin 600 MG TABCR PO SCH ×2 (08:31→21:28)
[2020-12-14] MEDS: CYANOCOBALAMIN 500 MCG TABLET (VITAMIN B-12) PO SCH (08:31)
[2020-12-14] MEDS: POTASSIUM CHLORIDE CRTAB 20 MEQ TABCR PO SCH ×2 (08:31→21:37)
[2020-12-14] MEDS: BENZONATATE 100 MG CAPSULE PO SCH ×3 (08:31→22:45)
[2020-12-14] MEDS: methylPREDNISolone 40 MG in SYRINGE 0 ML IV SCH ×2 (08:37→22:45)
[2020-12-14] MEDS: FLUTICASONE FUROATE 200MCG 14 PUFFS/INHALER INH SCH (08:39)
[2020-12-14] MEDS: LIDOCAINE 5% 1 PATCH TD SCH (08:39)
[2020-12-14] MEDS: DICLOFENAC SOD 1% GEL 100 GM TUBE EXT SCH ×2 (08:41→21:26)
[2020-12-14] MEDS: HEPARIN SOD 5,000 UNIT/0.5 ML VIAL SQ SCH ×2 (08:41→21:29)
[2020-12-14] MEDS: FAMOTIDINE 20 MG TAB PO SCH ×2 (08:47→21:27)
[2020-12-14] MEDS: POLYETHYLENE (MIRALAX) 17 GM PACK PO SCH ×2 (08:47→21:36)
[2020-12-14] MEDS: MUPIROCIN 2% OINT 22 GM TUBE EXT SCH ×2 (08:56→21:35)
[2020-12-14] MEDS: DEXTROMETHORPHAN POLYMR COMPLX 30 MG/5 ML UDP PO PRN (09:02)
[2020-12-14] MEDS: Magic Mouthwash 240mL PO SCH (09:09)
--- NOTE | 2020-12-14 11:21 | Hospitalist Progress Note ---
Date of Service December 14, 2020 Assessment & Plan (1) Acute respiratory failure with hypoxia: Plan: patient was on Vapotherm for a long time, down to wall high flow by the end of last week was doing well, down to 3L on 12/08 but then required more oxygen, up to 9L at one point CTA chest 12/08 without PE currently on Solu Medrol 40mg q12, scheduled nebulizers will add back Lasix 20mg IV daily, great response, change to Lasix 20mg PO daily tomorrow appreciate pulmonary input today she remains stable on 4L, less dyspnea on exertion, recovers faster OOB in the chair, looks better, breathing easier try to get down to 2-3L, suspect she will need oxygen a long time work up on 12/12: pH is 7.4, CO2 34, PaO2 73 procalcitonin, BNP, CRP normal CXR is improving pulmonary signed off, she can follow up with them in clinic ultimate goal is [facility], might be ready by the weekend (2) Pneumonia due to 2019 novel coronavirus: Plan: SEVERE COVID pneumonia, hospitalized since 11/18/20 able to come off respiratory isolation likely will need rehab, extreme exertional fatigue complete 14 days of baricitinib completed extended course of dexamethasone IV, changed to Solu Medrol on 12/08 when oxygen requirements went back up, treating asthma Completed 5-day course of Remdesivir. CRP initially high but improved with steroids/baricitinib. Continue aggressive pulmonary toilet. Nebs [place], helping the most with cough tessalon 200mg TID, mucinex 600mg BID, guaitussin ac q6h prn. 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 albuterol nebulizers and steroids, cut Solu Medrol to q12 follows w/ Dr Sina Estrada outpatient (4) UTI (urinary tract infection): Plan: Klebsiella and proteus uti found, on rocephin which is good for sensitiities complete 7 days as is a catheter associated uti finish 12/15 (5) Right lower quadrant abdominal pain: Plan: This is now coalesced into a large retroperitoneal bleed 19 x [address] scan from 12/06/2020. Hemoglobin did drop making his acute blood loss anemia from 12.9 g to 7.3 g. Patient transfused 2 units packed red blood cells. Patient had enoxaparin stopped on the aspirin stopped on the HGB remains stable after 2 units, it is 10.2 today no abdominal pain, much more comfortable heparin SC resumed for DVT prophylaxis (6) Acute kidney injury: Plan: resolved, Cr at 0.7 today making urine via meyer resume Lasix 20mg IV daily, great response change to 20mg PO daily, pull meyer tomorrow (7) Acute blood loss anemia: Plan: Acute blood loss anemia from abdominal musculature hematoma and large retroperitoneal hematoma this likely occurred due to coughing and abdominal wall stressors while being on anticoagulation of Lovenox 0.5 mg/kg subcu twice daily Hb is 10.2, has been stable ever since transfusion, no further evidence of bleeding (8) Constipation: Plan: senna + miralax no obstruction or ileus on KUB 11/29 Resolved constipation, had a BM 12/12 (9) Type 2 diabetes mellitus with insulin therapy: Plan: Glycemic recs appreciated from the pharmacy team. Glycemic management appears to be much improved Cont NPH, lantus, and novolog. HbA1c <6.5% in September. Control adequate, monitor for hypoglycemia and hyperglycemia, no episodes the past 24 hours (10) Morbid obesity: Plan: risk factor for covid morbidity BMI has improved s/p diuresis BMI high 30s (11) Hypertension: Plan: cont metoprolol. hold aldactone. (12) GERD (gastroesophageal reflux disease): Plan: Protonix BID with vomiting H2 susan. (13) Atrial flutter, paroxysmal: Plan: History of. No a.fib/flutter while here. (14) DVT prophylaxis: Plan: Patient is sequential compression devices. restart heparin sc High risk of VTE given severity of COVID illness, famHx of VTE, etc. Admission and Anticipated Discharge Date Admission Date: November 18, 2020 Subjective patient is having a good day, less dyspnea on exertion, recovers quickly gave herself a bath today, brushed her teeth, stood up on her own to get in the chair, balance is a little off but strength is good discussed removing meyer tomorrow, she agrees labs reviewed, Hb 10.2, Cr stable, K stable, WBC 15k d/w CM, not ready for [facility] but getting close, maybe Friday Review of Systems Review of Systems: All systems reviewed & are unremarkable except as noted in Subjective Constitutional: + fatigue and + weakness; no fever Respiratory: + cough and + dyspnea on exertion; no sputum production Physical Exam Physical Exam: General: well developed, obese female, no distress, comfortable Neck: supple, trachea midline, normal thyroid Lungs: + cough, no wheezing, no crackles, normal effort, no accessory muscles Heart: regular S1 and S2, no murmur, peripheral pulses normal, capillary refill normal, no edema Abdomen: soft, no tenderness, non distended, normal bowel sounds, tympanic to percussion Extremities: normal in appearance, no cyanosis, no petechiae, strength is 5/5 bilaterally Neuro: awake, cooperative, moves all extremities, no focal motor deficits, CN II-XII intact, sensation in extremities intact, normal speech Skin: warm, dry, no rash, normal turgor Psych: Awake, alert oriented x 3, calm Results & Data Results & Data ([facility]) Vital Signs (Past 12 Hours) Vital Signs Temp Pulse Resp BP Pulse Ox 12/14/20 10:36 25 H 97 12/14/20 08:24 37.3 C 69 18 128/81 93 12/14/20 07:14 81 19 96 12/14/20 02:45 20 94 Laboratory Results Laboratory Results - last 24 hr 12/13/20 12/13/20 12/13/20 12:30 16:54 20:31 WBC RBC Hgb Hct MCV MCH MCHC RDW Std Deviation RDW Coeff of Sheridan Plt Count MPV Absolute Nucleated RBC Nucleated RBC % (auto) Sodium Potassium Chloride Carbon Dioxide Anion Gap BUN Creatinine Est Cr Clr Drug Dosing Est GFR ( Amer) Est GFR (Non-Af Amer) BUN/Creatinine Ratio Glucose POC Glucose 207 H 116 H 150 H Calcium 12/13/20 12/14/20 12/14/20 22:39 06:00 06:00 WBC 15.46 H RBC 3.42 L Hgb 10.2 L Hct 32.1 L MCV 93.9 MCH 29.8 MCHC 31.8 L RDW Std Deviation 59.4 H RDW Coeff of Sheridan 18.2 H Plt Count 265 MPV 9.3 Absolute Nucleated RBC 0.13 H Nucleated RBC % (auto) 0.8 Sodium 137 Potassium 4.7 Chloride 104 Carbon Dioxide 26 Anion Gap 7.0 BUN 22 H Creatinine 0.76 Est Cr Clr Drug Dosing 108.7 Est GFR ( Amer) 103.1 Est GFR (Non-Af Amer) 88.9 BUN/Creatinine Ratio 29.4 H Glucose 177 H POC Glucose 164 H Calcium 9.0 12/14/20 08:12 WBC RBC Hgb Hct MCV MCH MCHC RDW Std Deviation RDW Coeff of Sheridan Plt Count MPV Absolute Nucleated RBC Nucleated RBC % (auto) Sodium Potassium Chloride Carbon Dioxide Anion Gap BUN Creatinine Est Cr Clr Drug Dosing Est GFR ( Amer) Est GFR (Non-Af Amer) BUN/Creatinine Ratio Glucose POC Glucose 160 H Calcium Medications Administered Current Inpatient Medications Acetaminophen (Acetaminophen 325 Mg Tab) 650 mg PO Q4H PRN PRN Reason: Pain or Fever Stop: 12/18/20 16:10 Last Admin: 12/11/20 14:39 Dose: 650 mg Documented by: Albuterol (Albut/Ipratrop 3mg/0.5mg Neb 3 Ml Vial) 3 ml NEB Q4R [facility] Stop: 01/06/21 14:59 Last Admin: 12/14/20 10:36 Dose: 3 ml Documented by: Albuterol (Albuterol 0.083% Nebu Soln 3 Ml Vial) 2.5 mg NEB Q2H PRN PRN Reason: sob Stop: 01/08/21 10:16 Benzonatate (Benzonatate 100 Mg Capsule) 200 mg PO TID [facility] Stop: 12/21/20 11:09 Last Admin: 12/14/20 08:31 Dose: 200 mg Documented by: Bisacodyl (Bisacodyl 10 Mg Supp) 10 mg WV DAILY PRN PRN Reason: Constipation Stop: 12/31/20 10:27 Last Admin: 12/01/20 12:29 Dose: 10 mg Documented by: Bupropion HCl (Bupropion Sr 100 Mg Tabcr) 200 mg PO BID [facility] Stop: 12/18/20 20:59 Last Admin: 12/14/20 08:31 Dose: 200 mg Documented by: Nystatin 30 ml/ Dexamethasone 3.75 mg/ Diphenhydramine HCl 300 mg/ Sucrose 45 ml/Microcrystalline Cellulose 45 ml/ BARCODE IDENTIFIER 1 ea 0 ml PO QID [facility] Stop: 01/10/21 08:59 Last Admin: 12/14/20 09:09 Dose: 5 ml Documented by: Cyanocobalamin (Cyanocobalamin 500 Mcg Tablet (Vitamin B-12)) 2,500 mcg PO QAM [facility] Stop: 12/19/20 08:59 Last Admin: 12/14/20 08:31 Dose: 2,500 mcg Documented by: Dextromethorphan Polymer Complex (Dextromethorphan Polymr Complx 30 Mg/5 Ml Udp) 30 mg PO Q6H PRN PRN Reason: Cough Stop: 12/18/20 19:47 Last Admin: 12/14/20 09:02 Dose: 30 mg Documented by: Dextrose (Dextrose 50% 50 Ml Syringe) 25 - 50 ml IV UD PRN; Protocol PRN Reason: Hypoglycemia Protocol Stop: 12/19/20 07:29 Diclofenac Sodium (Diclofenac Sod 1% Gel 100 Gm Tube) 4 gm EXT Q12 GIANNA Stop: 12/19/20 20:59 Last Admin: 12/14/20 08:41 Dose: 4 gm Documented by: Famotidine (Famotidine 20 Mg Tab) 20 mg PO BID [facility] Stop: 01/04/21 20:59 Last Admin: 12/14/20 08:47 Dose: 20 mg Documented by: Fluticasone Furoate (Fluticasone Furoate 200mcg 14 Puffs/Inhaler) 1 puffs INH DAILY [facility]; Protocol Stop: 12/21/20 11:59 Last Admin: 12/14/20 08:39 Dose: 1 puffs Documented by: Formoterol Fumarate (Formoterol 20 Mcg/2 Ml Vial) 20 mcg NEB BIDR [facility] Stop: 01/09/21 13:14 Last Admin: 12/14/20 07:14 Dose: Not Given Documented by: Glucagon (Glucagon For Inj 1 Mg Vial) 1 mg IM UD PRN; Protocol PRN Reason: Hypoglycemia Protocol Stop: 12/19/20 07:29 Glucose (Glucose 40% Gel 15 Gm Tube) 15 - 30 gm PO UD PRN; Protocol PRN Reason: Hypoglycemia Protocol Stop: 12/19/20 07:29 Glucose (Glucose 10 Tabs/Tube) 4 - 8 tabs PO UD PRN; Protocol PRN Reason: Hypoglycemia Protocol Stop: 12/19/20 07:29 Guaifenesin (Guaifenesin 600 Mg Tabcr) 600 mg PO Q12 [facility] Stop: 12/21/20 20:59 Last Admin: 12/14/20 08:31 Dose: 600 mg Documented by: Guaifenesin/Codeine Phosphate (Guaifenesin/Codeine 100mg/10mg 5ml Udc) 5 ml PO Q6H PRN PRN Reason: Cough Stop: 12/21/20 11:08 Last Admin: 12/04/20 12:50 Dose: 5 ml Documented by: Heparin Sodium (Porcine) (Heparin Sod 5,000 Unit/0.5 Ml Vial) 5,000 units SQ Q12 [facility] Stop: 01/08/21 20:59 Last Admin: 12/14/20 08:41 Dose: 5,000 units Documented by: Lorazepam (Ativan) 0.25 mg in 0.5 mls @ 0.5 mls/min IV Q6H PRN PRN Reason: anxiety Stop: 12/25/20 15:09 Last Admin: 12/04/20 19:29 Dose: 0.5 mls/min Documented by: Ceftriaxone Sodium 2,000 mg/ (Dextrose) 70 mls @ 100 mls/hr IV DAILY@1400 GIANNA; Protocol Stop: 12/15/20 13:59 Last Infusion: 12/13/20 13:56 Dose: Infused Documented by: Methylprednisolone 40 mg/ (Syringe) 0.64 mls @ 1.5 mls/min IV Q12H [facility] Stop: 01/12/21 20:59 Last Admin: 12/14/20 08:37 Dose: 1.5 mls/min Documented by: Insulin Aspart (Insulin Aspart 100 Units/Ml 3 Ml Pen) 0 units SC DAILY@0730 GIANNA; Protocol Stop: 01/13/21 07:29 Last Admin: 12/14/20 08:21 Dose: 57 units Documented by: Insulin Aspart (Insulin Aspart 100 Units/Ml 3 Ml Pen) 0 units SC DAILY@1130,1630,2100 G[facility]; Protocol Stop: 01/12/21 16:29 Last Admin: 12/13/20 22:48 Dose: 3 units Documented by: Insulin Human NPH (Insulin Human Nph) 35 units SC BIDM GIANNA; Protocol Stop: 01/12/21 16:59 Last Admin: 12/14/20 08:20 Dose: 35 units Documented by: Lidocaine (Lidocaine 5% 1 Patch) 1 patch TD QAM [facility] Stop: 12/19/20 09:59 Last Admin: 12/14/20 08:39 Dose: 1 patch Documented by: Lorazepam (Lorazepam 0.5 Mg Tab) 0.5 mg PO Q6H PRN PRN Reason: Anxiety Stop: 12/18/20 19:50 Last Admin: 12/12/20 09:08 Dose: 0.5 mg Documented by: Magnesium Citrate (Magnesium Citrate 296 Ml/Btl) 50 ml PO DAILY PRN PRN Reason: No BM w/in 48 hours Stop: 01/01/21 21:01 Menthol (Cough Drop (Sugar Free) Anahy 24 Anahy/1 Box) 1 anahy BUCCAL Q1H PRN PRN Reason: Sore Throat Stop: 12/23/20 16:29 Last Admin: 11/29/20 12:52 Dose: 1 anahy Documented by: Metoprolol Tartrate (Metoprolol Tartrate 25 Mg Tab) 75 mg PO BID [facility] Stop: 12/18/20 20:59 Last Admin: 12/14/20 08:31 Dose: 75 mg Documented by: Miscellaneous (Carbohydrates For Hypoglycemia ) 15 - 30 gm PO UD PRN PRN Reason: Hypoglycemia Treatment Stop: 12/19/20 07:29 Miscellaneous (Remove Lidoderm Patch) 1 ea N/A DAILY@2100 [facility] Stop: 12/19/20 20:59 Last Admin: 12/13/20 22:48 Dose: 1 ea Documented by: Miscellaneous Information (Pharmacy Glycemic Mgmt Consult) 1 ea N/A UD PRN PRN Reason: Consult Stop: 12/18/20 16:10 Montelukast Sodium (Montelukast Sodium 10 Mg Tablet) 10 mg PO QPM [facility] Stop: 12/18/20 20:59 Last Admin: 12/13/20 22:33 Dose: 10 mg Documented by: Mupirocin (Mupirocin 2% Oint 22 Gm Tube) 1 appln EXT Q12 [facility] Stop: 12/19/20 20:59 Last Admin: 12/14/20 08:56 Dose: 1 appln Documented by: Ondansetron HCl (Ondansetron Inj 2 Mg/Ml 2 Ml Vial) 4 mg IV Q6H PRN PRN Reason: Nausea Stop: 12/18/20 16:10 Last Admin: 12/01/20 08:01 Dose: 4 mg Documented by: Pantoprazole Sodium (Pantoprazole 40 Mg Tab) 40 mg PO BID [facility] Stop: 01/04/21 20:59 Last Admin: 12/14/20 08:31 Dose: 40 mg Documented by: Polyethylene Glycol (Polyethylene (Miralax) 17 Gm Pack) 17 gm PO BID [facility] Stop: 01/01/21 20:59 Last Admin: 12/14/20 08:47 Dose: 17 gm Documented by: Potassium Chloride (Potassium Chloride Crtab 20 Meq Tabcr) 40 meq PO BID [facility] Stop: 01/08/21 20:59 Last Admin: 12/14/20 08:31 Dose: 40 meq Documented by: Sennosides (Senna 8.6 Mg Tab) 17.2 mg PO QAM [facility] Stop: 12/24/20 14:59 Last Admin: 12/14/20 08:31 Dose: 17.2 mg Documented by: Sodium Chloride (Sodium Chloride 0.65% Na Soln 45 Ml (Pablo)) 2 sprays NA Q1H PRN PRN Reason: dryness of nose Stop: 12/23/20 16:40 Last Admin: 12/01/20 08:02 Dose: 2 sprays Documented by: Sumatriptan Succinate (Sumatriptan Succinate 100 Mg Tab) 100 mg PO UD PRN PRN Reason: migraine/headache Stop: 01/07/21 04:52 Last Admin: 12/12/20 20:38 Dose: 100 mg Documented by: PG Care Time/CCT Total # of Minutes Spent Total Time Spent with Patient: Total time spent is greater than 50% in coordination of care (as documented) at patient's floor/unit and/or counseling patient: Coding Level of Care Code 31493 Subseq Hosp Care Lvl 2 Diagnoses Acute respiratory failure with hypoxia J96.01 Pneumonia due to 2019 novel coronavirus U07.1; J12.82 Asthma J45.909 UTI (urinary tract infection) N39.0 Right lower quadrant abdominal pain R10.31 Acute kidney injury N17.9 Acute blood loss anemia D62 Constipation K59.00 Type 2 diabetes mellitus with insulin therapy E11.9; Z79.4 Morbid obesity E66.01 Hypertension I10 GERD (gastroesophageal reflux disease) K21.9 Atrial flutter, paroxysmal I48.92 DVT prophylaxis Z29.9
[2020-12-14] MEDS: cefTRIAXone SODIUM 2,000 MG in DEXTROSE 5% 50 ML IV SCH (14:21)
[2020-12-14] MEDS: MONTELUKAST SODIUM 10 MG TABLET PO SCH (21:34)
[2020-12-15] MEDS: ALBUT/IPRATROP 3MG/0.5MG NEB 3 ML VIAL NEB SCH ×6 (02:53→23:05)
[2020-12-15] MEDS: FORMOTEROL 20 MCG/2 ML VIAL NEB SCH ×3 (07:41→19:22)
[2020-12-15] MEDS: INSULIN ASPART 100 UNITS/ML 3 ML PEN SC SCH ×4 (09:27→22:01)
[2020-12-15] MEDS: INSULIN HUMAN NPH SC SCH ×2 (09:30→17:34)
[2020-12-15] MEDS: DEXTROMETHORPHAN POLYMR COMPLX 30 MG/5 ML UDP PO PRN (09:32)
[2020-12-15] MEDS: buPROPion SR 100 MG TABCR PO SCH ×2 (09:34→21:58)
[2020-12-15] MEDS: guaiFENesin 600 MG TABCR PO SCH ×2 (09:34→21:59)
[2020-12-15] MEDS: METOPROLOL TARTRATE 25 MG TAB PO SCH ×2 (09:35→22:05)
[2020-12-15] MEDS: SENNA 8.6 MG TAB PO SCH (09:36)
[2020-12-15] MEDS: methylPREDNISolone 40 MG in SYRINGE 0 ML IV SCH (09:36)
[2020-12-15] MEDS: POTASSIUM CHLORIDE CRTAB 20 MEQ TABCR PO SCH ×2 (09:37→22:08)
[2020-12-15] MEDS: CYANOCOBALAMIN 500 MCG TABLET (VITAMIN B-12) PO SCH (09:38)
[2020-12-15] MEDS: FAMOTIDINE 20 MG TAB PO SCH ×2 (09:38→21:59)
[2020-12-15] MEDS: PANTOprazole 40 MG TAB PO SCH ×2 (09:38→22:07)
[2020-12-15] MEDS: FUROSEMIDE 20 MG TAB PO SCH (09:39)
[2020-12-15] MEDS: FLUTICASONE FUROATE 200MCG 14 PUFFS/INHALER INH SCH (09:40)
[2020-12-15] MEDS: DICLOFENAC SOD 1% GEL 100 GM TUBE EXT SCH ×2 (09:40→21:57)
[2020-12-15] MEDS: HEPARIN SOD 5,000 UNIT/0.5 ML VIAL SQ SCH ×2 (09:42→22:00)
[2020-12-15] MEDS: LIDOCAINE 5% 1 PATCH TD SCH (09:42)
[2020-12-15] MEDS: POLYETHYLENE (MIRALAX) 17 GM PACK PO SCH ×2 (09:45→22:08)
[2020-12-15] MEDS: MUPIROCIN 2% OINT 22 GM TUBE EXT SCH ×2 (09:45→22:06)
[2020-12-15] MEDS: BENZONATATE 100 MG CAPSULE PO SCH ×3 (09:50→22:17)
--- NOTE | 2020-12-15 09:54 | Pharmacy Report ---
Pharmacy Glycemic Short Note 2 - Date of Service December 15, 2020 - Glycemic Short BSG Results (Last 24 hours): 12/14/20 12/14/20 12/14/20 12:16 16:40 20:43 POC Glucose 228 H 198 H 120 H 12/15/20 08:34 POC Glucose 159 H OUTPATIENT ANTIDIABETIC REGIMEN: * Basaglar 60 units SC HS * Ozempic 0.5mg SC monthly * Metformin ER 1000mg PO BID * HbA1c 6.3% on 09/27/20 ASSESSMENT: 12/15: * Rosalie received a total of 214 units of insulin yesterday (77 units basal + 137 units bolus) * This was ~30% increase from the previous day * BSGs were uncontrolled: [phone] mg/dL * Fasting BSG this AM was 159 mg/dL * NPH was increased by 20% starting last evening. Will continue this for today. * Given tight carb coverage, no change in Novolog at this time. 12/13: * Patient's BSGs yesterday were [phone] mg/dL. * Patient received 187 units of insulin (60 units of basal and 117 units of bolus). This represents an increase of 25% compared to 12/11/20. * Fasting BSG today was 110 mg/dL. * Continue NPH. Solu-Medrol decreased to 40 mg IV q12 but do not expect to see any difference in insulin requirements. * Further tighten aggressive Novolog due to hyperglycemia with steroids at lunch. 12/12: * Patient's BSGs yesterday were [phone] mg/dL. * Patient received 150 units of insulin (60 units of basal and 90 units of bolus). * Fasting BSG today was 228 mg/dL. * Continue morning NPH. Increase PM NPH as fasting elevated with Solu-Medrol 40 mg IV q8. * Further tighten aggressive Novolog due to hyperglycemia with steroids. PLAN FOR INPATIENT GLYCEMIC CONTROL: * Hold outpatient Metformin and Ozempic diabetes medications * Basal insulin - increased * NPH 42 units SQ BIDM * Bolus insulin - no change * NovoLog per scale ACHS or Q6hrs while NPO * Goal Range: Low 110 mg/dL - High 140 mg/dL * Correction Factor: 10 mg/dL/unit * Nutritional / Prandial insulin per carb ratio of 1 unit per 1.5 grams CHO consumed (1.2 grams CHO consumed at breakfast) PLAN FOR DISCHARGE: * HbA1c 6.3% at goal. Continue home regimen assuming frequent hypoglycemia as an outpatient is not occurring and assuming no contraindications exist at discharge
--- NOTE | 2020-12-15 12:55 | Hospitalist Progress Note ---
Date of Service December 15, 2020 Assessment & Plan (1) Acute respiratory failure with hypoxia: Plan: patient was on Vapotherm for a long time, down to wall high flow by the end of last week was doing well, down to 3L on 12/08 but then required more oxygen, up to 9L at one point CTA chest 12/08 without PE currently on Solu Medrol 40mg q12, scheduled nebulizers, will go down to 20mg q12 this evening, taper off continue Lasix 20mg PO daily appreciate pulmonary input today she remains stable on 4L, less dyspnea on exertion, recovers faster OOB in the chair, looks better, breathing easier try to get down to 2-3L, suspect she will need oxygen a long time work up on 12/12: pH is 7.4, CO2 34, PaO2 73 procalcitonin, BNP, CRP normal CXR is improving pulmonary signed off, she can follow up with them in clinic ultimate goal is [facility], likely ready by Friday/Friday, just want to make sure she has a good weekend prior to discharging her (2) Pneumonia due to 2019 novel coronavirus: Plan: SEVERE COVID pneumonia, hospitalized since 11/18/20 able to come off respiratory isolation likely will need rehab, extreme exertional fatigue complete 14 days of baricitinib completed extended course of dexamethasone IV, changed to Solu Medrol on 12/08 when oxygen requirements went back up, treating asthma Completed 5-day course of Remdesivir. CRP initially high but improved with steroids/baricitinib. Continue aggressive pulmonary toilet. Nebs [place], helping the most with cough tessalon 200mg TID, mucinex 600mg BID, guaitussin ac q6h prn. 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 albuterol nebulizers and steroids, cut Solu Medrol to 20mg q12, taper off over weekend follows w/ Dr Sina Estrada outpatient (4) UTI (urinary tract infection): Plan: Klebsiella and proteus uti found, on rocephin which is good for sensitiities complete 7 days as is a catheter associated uti finished 12/15 (5) Right lower quadrant abdominal pain: Plan: This is now coalesced into a large retroperitoneal bleed 19 x [address] scan from 12/06/2020. Hemoglobin did drop making his acute blood loss anemia from 12.9 g to 7.3 g. Patient transfused 2 units packed red blood cells. Patient had enoxaparin stopped on the aspirin stopped on the HGB remains stable after 2 units, it is 10.2 today no abdominal pain, much more comfortable heparin SC resumed for DVT prophylaxis (6) Acute kidney injury: Plan: resolved, Cr at 0.7 today making urine via meyer resume Lasix 20mg IV daily, great response change to 20mg PO daily, pull meyer tomorrow (7) Acute blood loss anemia: Plan: Acute blood loss anemia from abdominal musculature hematoma and large retroperitoneal hematoma this likely occurred due to coughing and abdominal wall stressors while being on anticoagulation of Lovenox 0.5 mg/kg subcu twice daily Hb is 10.2, has been stable ever since transfusion, no further evidence of bleeding check H/H tomorrow (8) Constipation: Plan: senna + miralax no obstruction or ileus on KUB 11/29 Resolved constipation, had a BM 12/12 (9) Type 2 diabetes mellitus with insulin therapy: Plan: Glycemic recs appreciated from the pharmacy team. Glycemic management appears to be much improved Cont NPH, lantus, and novolog. HbA1c <6.5% in September. Control adequate, monitor for hypoglycemia and hyperglycemia, no episodes the past 24 hours (10) Morbid obesity: Plan: risk factor for covid morbidity BMI has improved s/p diuresis BMI high 30s (11) Hypertension: Plan: cont metoprolol. hold aldactone. (12) GERD (gastroesophageal reflux disease): Plan: Protonix BID with vomiting H2 susan. (13) Atrial flutter, paroxysmal: Plan: History of. No a.fib/flutter while here. (14) DVT prophylaxis: Plan: Patient is sequential compression devices. restart heparin sc High risk of VTE given severity of COVID illness, famHx of VTE, etc. Plan: keep over the weekend, [facility] Friday/Friday if they have a bed Admission and Anticipated Discharge Date Admission Date: November 18, 2020 Subjective patient had a very busy day, PT/OT walked patient to one side of the room and back, she had to sit and catch her breath half way she was pleased with how she did she is eating well, had a BM, no nausea, no headache will hold on pulling meyer until tomorrow since she is fatigued from therapy today she is breathing well on 4L, needs to go up on oxygen when exerting herself, just standing up and pivoting discussed trying for rehab after the weekend Review of Systems Review of Systems: All systems reviewed & are unremarkable except as noted in Subjective Physical Exam Physical Exam: General: well developed, obese female, no distress, comfortable Neck: supple, trachea midline, normal thyroid Lungs: + cough, no wheezing, no crackles, normal effort, no accessory muscles Heart: regular S1 and S2, no murmur, peripheral pulses normal, capillary refill normal, no edema Abdomen: soft, no tenderness, non distended, normal bowel sounds, tympanic to percussion Extremities: normal in appearance, no cyanosis, no petechiae, strength is 5/5 bilaterally Neuro: awake, cooperative, moves all extremities, no focal motor deficits, CN II-XII intact, sensation in extremities intact, normal speech Skin: warm, dry, no rash, normal turgor Psych: Awake, alert oriented x 3, calm Results & Data Results & Data ([facility]) Vital Signs (Past 12 Hours) Vital Signs Temp Pulse Pulse Resp BP Pulse Ox 12/15/20 11:18 72 16 98 12/15/20 08:16 37.1 C 86 18 110/70 95 12/15/20 07:41 71 16 98 12/15/20 02:55 72 16 98 Medications Administered Current Inpatient Medications Acetaminophen (Acetaminophen 325 Mg Tab) 650 mg PO Q4H PRN PRN Reason: Pain or Fever Stop: 12/18/20 16:10 Last Admin: 12/11/20 14:39 Dose: 650 mg Documented by: Albuterol (Albut/Ipratrop 3mg/0.5mg Neb 3 Ml Vial) 3 ml NEB Q4R GIANNA Stop: 01/06/21 14:59 Last Admin: 12/15/20 11:18 Dose: Not Given Documented by: Albuterol (Albuterol 0.083% Nebu Soln 3 Ml Vial) 2.5 mg NEB Q2H PRN PRN Reason: sob Stop: 01/08/21 10:16 Benzonatate (Benzonatate 100 Mg Capsule) 200 mg PO TID GIANNA Stop: 12/21/20 11:09 Last Admin: 12/15/20 09:50 Dose: 200 mg Documented by: Bisacodyl (Bisacodyl 10 Mg Supp) 10 mg W[place] DAILY PRN PRN Reason: Constipation Stop: 12/31/20 10:27 Last Admin: 12/01/20 12:29 Dose: 10 mg Documented by: Bupropion HCl (Bupropion Sr 100 Mg Tabcr) 200 mg PO BID [facility] Stop: 12/18/20 20:59 Last Admin: 12/15/20 09:34 Dose: 200 mg Documented by: Nystatin 30 ml/ Dexamethasone 3.75 mg/ Diphenhydramine HCl 300 mg/ Sucrose 45 ml/Microcrystalline Cellulose 45 ml/ [employer]CODE IDENTIFIER 1 ea 0 ml PO Q4H GIANNA Stop: 01/13/21 11:59 Last Admin: 12/15/20 10:11 Dose: 30 ml Documented by: Cyanocobalamin (Cyanocobalamin 500 Mcg Tablet (Vitamin B-12)) 2,500 mcg PO QAM [facility] Stop: 12/19/20 08:59 Last Admin: 12/15/20 09:38 Dose: 2,500 mcg Documented by: Dextromethorphan Polymer Complex (Dextromethorphan Polymr Complx 30 Mg/5 Ml Udp) 30 mg PO Q6H PRN PRN Reason: Cough Stop: 12/18/20 19:47 Last Admin: 12/15/20 09:32 Dose: 30 mg Documented by: Dextrose (Dextrose 50% 50 Ml Syringe) 25 - 50 ml IV UD PRN; Protocol PRN Reason: Hypoglycemia Protocol Stop: 12/19/20 07:29 Diclofenac Sodium (Diclofenac Sod 1% Gel 100 Gm Tube) 4 gm EXT Q12 GIANNA Stop: 12/19/20 20:59 Last Admin: 12/15/20 09:40 Dose: 4 gm Documented by: Famotidine (Famotidine 20 Mg Tab) 20 mg PO BID GIANNA Stop: 01/04/21 20:59 Last Admin: 12/15/20 09:38 Dose: 20 mg Documented by: Fluticasone Furoate (Fluticasone Furoate 200mcg 14 Puffs/Inhaler) 1 puffs INH DAILY [facility]; Protocol Stop: 12/21/20 11:59 Last Admin: 12/15/20 09:40 Dose: 1 puffs Documented by: Formoterol Fumarate (Formoterol 20 Mcg/2 Ml Vial) 20 mcg NEB BIDR [facility] Stop: 01/09/21 13:14 Last Admin: 12/15/20 11:17 Dose: 20 mcg Documented by: Furosemide (Furosemide 20 Mg Tab) 20 mg PO QAM GIANNA Stop: 01/14/21 08:59 Last Admin: 12/15/20 09:39 Dose: 20 mg Documented by: Glucagon (Glucagon For Inj 1 Mg Vial) 1 mg IM UD PRN; Protocol PRN Reason: Hypoglycemia Protocol Stop: 12/19/20 07:29 Glucose (Glucose 40% Gel 15 Gm Tube) 15 - 30 gm PO UD PRN; Protocol PRN Reason: Hypoglycemia Protocol Stop: 12/19/20 07:29 Glucose (Glucose 10 Tabs/Tube) 4 - 8 tabs PO UD PRN; Protocol PRN Reason: Hypoglycemia Protocol Stop: 12/19/20 07:29 Guaifenesin (Guaifenesin 600 Mg Tabcr) 600 mg PO Q12 GIANNA Stop: 12/21/20 20:59 Last Admin: 12/15/20 09:34 Dose: 600 mg Documented by: Guaifenesin/Codeine Phosphate (Guaifenesin/Codeine 100mg/10mg 5ml Udc) 5 ml PO Q6H PRN PRN Reason: Cough Stop: 12/21/20 11:08 Last Admin: 12/04/20 12:50 Dose: 5 ml Documented by: Heparin Sodium (Porcine) (Heparin Sod 5,000 Unit/0.5 Ml Vial) 5,000 units SQ Q12 GIANNA Stop: 01/08/21 20:59 Last Admin: 12/15/20 09:42 Dose: 5,000 units Documented by: Lorazepam (Ativan) 0.25 mg in 0.5 mls @ 0.5 mls/min IV Q6H PRN PRN Reason: anxiety Stop: 12/25/20 15:09 Last Admin: 12/04/20 19:29 Dose: 0.5 mls/min Documented by: Ceftriaxone Sodium 2,000 mg/ (Dextrose) 70 mls @ 100 mls/hr IV DAILY@1400 [facility]; Protocol Stop: 12/15/20 13:59 Last Infusion: 12/14/20 15:43 Dose: Infused Documented by: Methylprednisolone 40 mg/ (Syringe) 0.64 mls @ 1.5 mls/min IV Q12H [facility] Stop: 01/12/21 20:59 Last Admin: 12/15/20 09:36 Dose: 1.5 mls/min Documented by: Insulin Aspart (Insulin Aspart 100 Units/Ml 3 Ml Pen) 0 units SC DAILY@0730 [facility]; Protocol Stop: 01/13/21 07:29 Last Admin: 12/15/20 09:27 Dose: 50 units Documented by: Insulin Aspart (Insulin Aspart 100 Units/Ml 3 Ml Pen) 0 units SC DAILY@1130,1630,2100 [facility]; Protocol Stop: 01/12/21 16:29 Last Admin: 12/14/20 21:40 Dose: Not Given Documented by: Insulin Human NPH (Insulin Human Nph) 42 units SC BIDM [facility]; Protocol Stop: 01/12/21 16:59 Last Admin: 12/15/20 09:30 Dose: 42 units Documented by: Lidocaine (Lidocaine 5% 1 Patch) [facility] [place] Stop: 12/19/20 09:59 Last Admin: 12/15/20 09:42 Dose: 1 patch Documented by: Lorazepam (Lorazepam 0.5 Mg Tab) 0.5 mg PO Q6H PRN PRN Reason: Anxiety Stop: 12/18/20 19:50 Last Admin: 12/12/20 09:08 Dose: 0.5 mg Documented by: Magnesium Citrate (Magnesium Citrate 296 Ml/Btl) 50 ml PO DAILY PRN PRN Reason: No BM w/in 48 hours Stop: 01/01/21 21:01 Menthol (Cough Drop (Sugar Free) Anahy 24 Anahy/1 Box) 1 anahy BUCCAL Q1H PRN PRN Reason: Sore Throat Stop: 12/23/20 16:29 Last Admin: 11/29/20 12:52 Dose: 1 anahy Documented by: Metoprolol Tartrate (Metoprolol Tartrate 25 Mg Tab) 75 mg PO BID [facility] Stop: 12/18/20 20:59 Last Admin: 12/15/20 09:35 Dose: 75 mg Documented by: Miscellaneous (Carbohydrates For Hypoglycemia ) 15 - 30 gm PO UD PRN PRN Reason: Hypoglycemia Treatment Stop: 12/19/20 07:29 Miscellaneous (Remove Lidoderm Patch) 1 ea N/A DAILY@2100 [facility] Stop: 12/19/20 20:59 Last Admin: 12/14/20 21:37 Dose: 1 ea Documented by: Miscellaneous Information (Pharmacy Glycemic Mgmt Consult) 1 ea N/A UD PRN PRN Reason: Consult Stop: 12/18/20 16:10 Montelukast Sodium (Montelukast Sodium 10 Mg Tablet) 10 mg PO QPM GIANNA Stop: 12/18/20 20:59 Last Admin: 12/14/20 21:34 Dose: 10 mg Documented by: Mupirocin (Mupirocin 2% Oint 22 Gm Tube) 1 appln EXT Q12 GIANNA Stop: 12/19/20 20:59 Last Admin: 12/15/20 09:45 Dose: 1 appln Documented by: Ondansetron HCl (Ondansetron Inj 2 Mg/Ml 2 Ml Vial) 4 mg IV Q6H PRN PRN Reason: Nausea Stop: 12/18/20 16:10 Last Admin: 12/01/20 08:01 Dose: 4 mg Documented by: Pantoprazole Sodium (Pantoprazole 40 Mg Tab) 40 mg PO BID [facility] Stop: 01/04/21 20:59 Last Admin: 12/15/20 09:38 Dose: 40 mg Documented by: Polyethylene Glycol (Polyethylene (Miralax) 17 Gm Pack) 17 gm PO BID GIANNA Stop: 01/01/21 20:59 Last Admin: 12/15/20 09:45 Dose: 17 gm Documented by: Potassium Chloride (Potassium Chloride Crtab 20 Meq Tabcr) 40 meq PO BID [facility] Stop: 01/08/21 20:59 Last Admin: 12/15/20 09:37 Dose: 40 meq Documented by: Sennosides (Senna 8.6 Mg Tab) 17.2 mg PO QAM [facility] Stop: 12/24/20 14:59 Last Admin: 12/15/20 09:36 Dose: 17.2 mg Documented by: Sodium Chloride (Sodium Chloride 0.65% Na Soln 45 Ml ([place])) 2 sprays NA Q1H PRN PRN Reason: dryness of nose Stop: 12/23/20 16:40 Last Admin: 12/01/20 08:02 Dose: 2 sprays Documented by: Sumatriptan Succinate (Sumatriptan Succinate 100 Mg Tab) 100 mg PO UD PRN PRN Reason: migraine/headache Stop: 01/07/21 04:52 Last Admin: 12/12/20 20:38 Dose: 100 mg Documented by: PG Care Time/CCT Total # of Minutes Spent Total Time Spent with Patient: Total time spent is greater than 50% in coordination of care (as documented) at patient's floor/unit and/or counseling patient: Coding Level of Care Code 70951 Subseq Hosp Care Lvl 2 Diagnoses Acute respiratory failure with hypoxia J96.01 Pneumonia due to 2019 novel coronavirus U07.1; J12.82 Asthma J45.909 UTI (urinary tract infection) N39.0 Right lower quadrant abdominal pain R10.31 Acute kidney injury N17.9 Acute blood loss anemia D62 Constipation K59.00 Type 2 diabetes mellitus with insulin therapy E11.9; Z79.4 Morbid obesity E66.01 Hypertension I10 GERD (gastroesophageal reflux disease) K21.9 Atrial flutter, paroxysmal I48.92 DVT prophylaxis Z29.9
[2020-12-15] MEDS: methylPREDNISolone 20 MG in SYRINGE 0 ML IV SCH (22:00)
[2020-12-15] MEDS: MONTELUKAST SODIUM 10 MG TABLET PO SCH (22:06)
[2020-12-16] MEDS: ALBUT/IPRATROP 3MG/0.5MG NEB 3 ML VIAL NEB SCH ×6 (02:30→23:07)
[2020-12-16] MEDS: FORMOTEROL 20 MCG/2 ML VIAL NEB SCH ×2 (06:09→19:17)
[2020-12-16 07:18] LABS: Hematocrit (blood only) 34.7 % (37-47); Hemoglobin 10.9 g/dL (12.0-16.0); Mean Corpuscular Hemoglobin 30.2 pg (25-34); Mean Corpuscular Hgb Conc 31.4 g/dL (32-36); Mean Corpuscular Volume 96.1 fL (80-100); Mean Platelet Volume 9.3 fL (7.4-10.4); Nucleated RBC # (auto) 0.06 K/uL (0-0); Nucleated RBC % (auto) 0.4 %; Platelet Count 239 K/uL (130-400); RDW Coefficient of Variation 17.9 % (11.5-14.5); RDW Standard Deviation 61.1 fL (36.4-46.3); Red Blood Count 3.61 M/uL (4.2-5.4); White Blood Count 15.41 K/uL (4.8-10.8)
[2020-12-16 07:44] LABS: Alanine Aminotransferase 42 U/L (12-78); Aspartate Aminotransferase 17 U/L (15-37); BUN Creatinine Ratio 31.4 (10-20); Blood Urea Nitrogen 21 mg/dl (7-18); C Reactive Protein < 0.29 mg/dl (0-0.29); Calcium 9.2 mg/dl (8.5-10.1); Carbon Dioxide 28 mmol/L (21-32); Chloride 105 mmol/L (98-107); Creatinine Clr Calc Pharmacy 127.7 ml/min; Est GFR (African American) 116.7 ml/min; Est GFR (Non-African American) 100.7 ml/min; Glucose 73 mg/dl (70-99); Potassium 4.7 mmol/L (3.5-5.1); Sodium 137 mmol/L (136-145)
[2020-12-16 07:47] LABS: Albumin Globulin Ratio 0.9 (0.9-2); Alkaline Phosphatase 63 U/L (45-117); Bilirubin,Total 0.7 mg/dl (0.2-1); Globulin 3.3 gm/dl (2.5-4.0); Total Protein 6.3 gm/dl (6.4-8.2)
[2020-12-16] MEDS: BENZONATATE 100 MG CAPSULE PO SCH ×3 (08:35→21:11)
[2020-12-16] MEDS: POTASSIUM CHLORIDE CRTAB 20 MEQ TABCR PO SCH ×2 (08:35→21:02)
[2020-12-16] MEDS: CYANOCOBALAMIN 500 MCG TABLET (VITAMIN B-12) PO SCH (08:36)
[2020-12-16] MEDS: FUROSEMIDE 20 MG TAB PO SCH (08:36)
[2020-12-16] MEDS: FAMOTIDINE 20 MG TAB PO SCH ×2 (08:36→21:00)
[2020-12-16] MEDS: PANTOprazole 40 MG TAB PO SCH ×2 (08:37→21:01)
[2020-12-16] MEDS: SENNA 8.6 MG TAB PO SCH (08:37)
[2020-12-16] MEDS: METOPROLOL TARTRATE 25 MG TAB PO SCH ×2 (08:37→21:01)
[2020-12-16] MEDS: guaiFENesin 600 MG TABCR PO SCH ×2 (08:38→21:00)
[2020-12-16] MEDS: buPROPion SR 100 MG TABCR PO SCH ×2 (08:38→20:59)
[2020-12-16] MEDS: MUPIROCIN 2% OINT 22 GM TUBE EXT SCH ×2 (08:39→21:08)
[2020-12-16] MEDS: FLUTICASONE FUROATE 200MCG 14 PUFFS/INHALER INH SCH (08:39)
[2020-12-16] MEDS: methylPREDNISolone 20 MG in SYRINGE 0 ML IV SCH ×2 (08:39→21:00)
[2020-12-16] MEDS: DICLOFENAC SOD 1% GEL 100 GM TUBE EXT SCH ×2 (08:39→20:59)
[2020-12-16] MEDS: POLYETHYLENE (MIRALAX) 17 GM PACK PO SCH ×2 (08:39→21:02)
[2020-12-16] MEDS: HEPARIN SOD 5,000 UNIT/0.5 ML VIAL SQ SCH ×2 (08:40→21:00)
[2020-12-16] MEDS: LIDOCAINE 5% 1 PATCH TD SCH (08:40)
[2020-12-16] MEDS: INSULIN HUMAN NPH SC SCH (08:46)
[2020-12-16] MEDS: INSULIN ASPART 100 UNITS/ML 3 ML PEN SC SCH ×4 (08:48→22:01)
--- NOTE | 2020-12-16 10:41 | Hospitalist Progress Note ---
Date of Service December 16, 2020 Assessment & Plan (1) Acute respiratory failure with hypoxia: Plan: patient was on Vapotherm for a long time, very slow to wean down to low flow CTA chest 12/08 without PE currently on Solu Medrol 20mg q12, scheduled nebulizers, go down to Solu Medrol 20mg daily tomorrow and then stop continue Lasix 20mg PO daily but can likely stop after discharge today she is down to 3L at rest, less dyspnea on exertion, recovers faster OOB in the chair, looks better, breathing easier suspect she will need oxygen a long time even after discharge work up on 12/12: pH is 7.4, CO2 34, PaO2 73 procalcitonin, BNP, CRP normal CXR is improving pulmonary signed off, she can follow up with them in clinic ultimate goal is [facility], likely ready by Friday, just want to make sure she has a good weekend prior to discharging her (2) Pneumonia due to 2019 novel coronavirus: Plan: SEVERE COVID pneumonia, hospitalized since 11/18/20 able to come off respiratory isolation likely will need rehab, extreme exertional fatigue complete 14 days of baricitinib completed extended course of dexamethasone IV, changed to Solu Medrol on 12/08 when oxygen requirements went back up, treating asthma Completed 5-day course of Remdesivir. CRP initially high but improved with steroids/baricitinib. Continue aggressive pulmonary toilet. Nebs [place], helping the most with cough tessalon 200mg TID, mucinex 600mg BID, guaitussin ac q6h prn. 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 albuterol nebulizers and steroids, cut Solu Medrol to 20mg q12, taper off over weekend follows w/ Dr Sina Estrada outpatient (4) UTI (urinary tract infection): Plan: Klebsiella and proteus uti found, on rocephin which is good for sensitiities complete 7 days as is a catheter associated uti finished 10/29 (5) Right lower quadrant abdominal pain: Plan: This is now coalesced into a large retroperitoneal bleed 19 x [address] scan from 12/06/2020. Hemoglobin did drop making his acute blood loss anemia from 12.9 g to 7.3 g. Patient transfused 2 units packed red blood cells. Patient had enoxaparin stopped on the aspirin stopped on the HGB remains stable after 2 units, it is 10.2 today no abdominal pain, much more comfortable heparin SC resumed for DVT prophylaxis (6) Acute kidney injury: Plan: resolved, Cr at 0.7 today making urine via meyer remove meyer today continue Lasix 20mg PO daily (7) Acute blood loss anemia: Plan: Acute blood loss anemia from abdominal musculature hematoma and large retroperitoneal hematoma this likely occurred due to coughing and abdominal wall stressors while being on anticoagulation of Lovenox 0.5 mg/kg subcu twice daily Hb is 10.9, has been stable ever since transfusion, no further evidence of bleeding (8) Constipation: Plan: senna + miralax no obstruction or ileus on KUB 11/29 Resolved, moving bowels (9) Type 2 diabetes mellitus with insulin therapy: Plan: Glycemic recs appreciated from the pharmacy team. Glycemic management appears to be much improved Cont NPH, lantus, and novolog. HbA1c <6.5% in September. Control adequate, monitor for hypoglycemia and hyperglycemia, no episodes the past 24 hours (10) Morbid obesity: Plan: risk factor for covid morbidity BMI has improved s/p diuresis BMI high 30s (11) Hypertension: Plan: cont metoprolol. hold aldactone. (12) GERD (gastroesophageal reflux disease): Plan: Protonix BID with vomiting H2 susan. (13) Atrial flutter, paroxysmal: Plan: History of. No a.fib/flutter while here. (14) DVT prophylaxis: Plan: Patient is sequential compression devices. restart heparin sc High risk of VTE given severity of COVID illness, famHx of VTE, etc. Plan: keep over the weekend, [facility] Friday/Friday if they have a bed Admission and Anticipated Discharge Date Admission Date: November 18, 2020 Subjective patient having a good day again today, stable on 3L, slowly making progress towards discharge to rehab eating great, cough is less will stop Solu Medrol after tomorrow AM will remove meyer after lunch today she is in a good mood, smiling, laughing about her son giving her a hard time at home Review of Systems Review of Systems: All systems reviewed & are unremarkable except as noted in Subjective Respiratory: + cough, + dyspnea and + dyspnea on exertion Physical Exam Physical Exam: General: well developed, obese female, no distress, comfortable Neck: supple, trachea midline, normal thyroid Lungs: + cough, no wheezing, no crackles, normal effort, no accessory muscles Heart: regular S1 and S2, no murmur, peripheral pulses normal, capillary refill normal, no edema Abdomen: soft, no tenderness, non distended, normal bowel sounds, tympanic to percussion Extremities: normal in appearance, no cyanosis, no petechiae, strength is 5/5 bilaterally Neuro: awake, cooperative, moves all extremities, no focal motor deficits, CN II-XII intact, sensation in extremities intact, normal speech Skin: warm, dry, no rash, normal turgor Psych: Awake, alert oriented x 3, calm Results & Data Results & Data ([facility]) Vital Signs (Past 12 Hours) Vital Signs Temp Pulse Resp BP Pulse Ox 12/16/20 07:58 37.1 C 64 18 114/77 96 12/16/20 06:09 70 16 97 12/16/20 02:31 64 16 91 12/15/20 23:08 66 16 97 Laboratory Results Laboratory Results - last 24 hr 12/15/20 12/15/20 12/15/20 11:56 17:01 20:53 WBC RBC Hgb Hct MCV MCH MCHC RDW Std Deviation RDW Coeff of Sheridan Plt Count MPV Absolute Nucleated RBC Nucleated RBC % (auto) Sodium Potassium Chloride Carbon Dioxide Anion Gap BUN Creatinine Est Cr Clr Drug Dosing Est GFR ( Amer) Est GFR (Non-Af Amer) BUN/Creatinine Ratio Glucose POC Glucose 187 H 169 H 122 H Calcium Total Bilirubin AST ALT Alkaline Phosphatase C-Reactive Protein Total Protein Albumin Globulin Albumin/Globulin Ratio 12/16/20 12/16/20 12/16/20 06:36 06:36 08:23 WBC 15.41 H RBC 3.61 L Hgb 10.9 L Hct 34.7 L MCV 96.1 MCH 30.2 MCHC 31.4 L RDW Std Deviation 61.1 H RDW Coeff of [place]idan 17.9 H Plt Count 239 MPV 9.3 Absolute Nucleated RBC 0.06 H Nucleated RBC % (auto) 0.4 Sodium 137 Potassium 4.7 Chloride 105 Carbon Dioxide 28 Anion Gap 4.0 BUN 21 H Creatinine 0.65 Est Cr Clr Drug Dosing 127.7 Est GFR ( Amer) 116.7 Est GFR (Non-Af Amer) 100.7 BUN/Creatinine Ratio 31.4 H Glucose 73 POC Glucose 85 Calcium 9.2 Total Bilirubin 0.7 AST 17 ALT 42 Alkaline Phosphatase 63 C-Reactive Protein < 0.29 Total Protein 6.3 L Albumin 3.0 L Globulin 3.3 Albumin/Globulin Ratio 0.9 Medications Administered Current Inpatient Medications Acetaminophen (Acetaminophen 325 Mg Tab) 650 mg PO Q4H PRN PRN Reason: Pain or Fever Stop: 12/18/20 16:10 Last Admin: 12/11/20 14:39 Dose: 650 mg Documented by: Albuterol (Albut/Ipratrop 3mg/0.5mg Neb 3 Ml Vial) 3 ml NEB Q4R [facility] Stop: 01/06/21 14:59 Last Admin: 12/16/20 06:10 Dose: Not Given Documented by: Albuterol (Albuterol 0.083% Nebu Soln 3 Ml Vial) 2.5 mg NEB Q2H PRN PRN Reason: sob Stop: 01/08/21 10:16 Benzonatate (Benzonatate 100 Mg Capsule) 200 mg PO TID [facility] Stop: 12/21/20 11:09 Last Admin: 12/16/20 08:35 Dose: 200 mg Documented by: Bisacodyl (Bisacodyl 10 Mg Supp) 10 mg KS DAILY PRN PRN Reason: Constipation Stop: 12/31/20 10:27 Last Admin: 12/01/20 12:29 Dose: 10 mg Documented by: Bupropion HCl (Bupropion Sr 100 Mg Tabcr) 200 mg PO BID [facility] Stop: 12/18/20 20:59 Last Admin: 12/16/20 08:38 Dose: 200 mg Documented by: Nystatin 30 ml/ Dexamethasone 3.75 mg/ Diphenhydramine HCl 300 mg/ Sucrose 45 ml/Microcrystalline Cellulose 45 ml/ BARCODE IDENTIFIER 1 ea 0 ml PO Q4H [facility] Stop: 01/13/21 11:59 Last Admin: 12/16/20 08:41 Dose: 5 ml Documented by: Cyanocobalamin (Cyanocobalamin 500 Mcg Tablet (Vitamin B-12)) 2,500 mcg PO QAM [facility] Stop: 12/19/20 08:59 Last Admin: 12/16/20 08:36 Dose: 2,500 mcg Documented by: Dextromethorphan Polymer Complex (Dextromethorphan Polymr Complx 30 Mg/5 Ml Udp) 30 mg PO Q6H PRN PRN Reason: Cough Stop: 12/18/20 19:47 Last Admin: 12/15/20 09:32 Dose: 30 mg Documented by: Dextrose (Dextrose 50% 50 Ml Syringe) 25 - 50 ml IV UD PRN; Protocol PRN Reason: Hypoglycemia Protocol Stop: 12/19/20 07:29 Diclofenac Sodium (Diclofenac Sod 1% Gel 100 Gm Tube) 4 gm EXT Q12 [facility] Stop: 12/19/20 20:59 Last Admin: 12/16/20 08:39 Dose: 4 gm Documented by: Famotidine (Famotidine 20 Mg Tab) 20 mg PO BID [facility] Stop: 01/04/21 20:59 Last Admin: 12/16/20 08:36 Dose: 20 mg Documented by: Fluticasone Furoate (Fluticasone Furoate 200mcg 14 Puffs/Inhaler) 1 puffs INH DAILY [facility]; Protocol Stop: 12/21/20 11:59 Last Admin: 12/16/20 08:39 Dose: 1 puffs Documented by: Formoterol Fumarate (Formoterol 20 Mcg/2 Ml Vial) 20 mcg NEB BIDR [facility] Stop: 01/09/21 13:14 Last Admin: 12/16/20 06:09 Dose: 20 mcg Documented by: Furosemide (Furosemide 20 Mg Tab) 20 mg PO QAM [facility] Stop: 01/14/21 08:59 Last Admin: 12/16/20 08:36 Dose: 20 mg Documented by: Glucagon (Glucagon For Inj 1 Mg Vial) 1 mg IM UD PRN; Protocol PRN Reason: Hypoglycemia Protocol Stop: 12/19/20 07:29 Glucose (Glucose 40% Gel 15 Gm Tube) 15 - 30 gm PO UD PRN; Protocol PRN Reason: Hypoglycemia Protocol Stop: 12/19/20 07:29 Glucose (Glucose 10 Tabs/Tube) 4 - 8 tabs PO UD PRN; Protocol PRN Reason: Hypoglycemia Protocol Stop: 12/19/20 07:29 Guaifenesin (Guaifenesin 600 Mg Tabcr) 600 mg PO Q12 [facility] Stop: 12/21/20 20:59 Last Admin: 12/16/20 08:38 Dose: 600 mg Documented by: Guaifenesin/Codeine Phosphate (Guaifenesin/Codeine 100mg/10mg 5ml Udc) 5 ml PO Q6H PRN PRN Reason: Cough Stop: 12/21/20 11:08 Last Admin: 12/04/20 12:50 Dose: 5 ml Documented by: Heparin Sodium (Porcine) (Heparin Sod 5,000 Unit/0.5 Ml Vial) 5,000 units SQ Q12 [facility] Stop: 01/08/21 20:59 Last Admin: 12/16/20 08:40 Dose: 5,000 units Documented by: Lorazepam (Ativan) 0.25 mg in 0.5 mls @ 0.5 mls/min IV Q6H PRN PRN Reason: anxiety Stop: 12/25/20 15:09 Last Admin: 12/04/20 19:29 Dose: 0.5 mls/min Documented by: Methylprednisolone 20 mg/ (Syringe) 0.32 mls @ 1.5 mls/min IV Q12H [facility] Stop: 01/14/21 20:59 Last Admin: 12/16/20 08:39 Dose: 1.5 mls/min Documented by: Insulin Aspart (Insulin Aspart 100 Units/Ml 3 Ml Pen) 0 units SC DAILY@0730 [facility]; Protocol Stop: 01/13/21 07:29 Last Admin: 12/16/20 08:48 Dose: 33 units Documented by: Insulin Aspart (Insulin Aspart 100 Units/Ml 3 Ml Pen) 0 units SC DAILY@1130,1630,2100 [facility]; Protocol Stop: 01/12/21 16:29 Last Admin: 12/15/20 22:01 Dose: 19 units Documented by: Insulin Human NPH (Insulin Human Nph) 42 units SC BIDM [facility]; Protocol Stop: 01/12/21 16:59 Last Admin: 12/16/20 08:46 Dose: 42 units Documented by: Lidocaine (Lidocaine 5% 1 Patch) 1 patch TD QAM [facility] Stop: 12/19/20 09:59 Last Admin: 12/16/20 08:40 Dose: 1 patch Documented by: Lorazepam (Lorazepam 0.5 Mg Tab) 0.5 mg PO Q6H PRN PRN Reason: Anxiety Stop: 12/18/20 19:50 Last Admin: 12/12/20 09:08 Dose: 0.5 mg Documented by: Magnesium Citrate (Magnesium Citrate 296 Ml/Btl) 50 ml PO DAILY PRN PRN Reason: No BM w/in 48 hours Stop: 01/01/21 21:01 Menthol (Cough Drop (Sugar Free) Anahy 24 Anahy/1 Box) 1 anahy BUCCAL Q1H PRN PRN Reason: Sore Throat Stop: 12/23/20 16:29 Last Admin: 11/29/20 12:52 Dose: 1 anahy Documented by: Metoprolol Tartrate (Metoprolol Tartrate 25 Mg Tab) 75 mg PO BID [facility] Stop: 12/18/20 20:59 Last Admin: 12/16/20 08:37 Dose: 75 mg Documented by: Miscellaneous (Carbohydrates For Hypoglycemia ) 15 - 30 gm PO UD PRN PRN Reason: Hypoglycemia Treatment Stop: 12/19/20 07:29 Miscellaneous (Remove Lidoderm Patch) 1 ea N/A DAILY@2100 [facility] Stop: 12/19/20 20:59 Last Admin: 12/15/20 22:09 Dose: 1 ea Documented by: Miscellaneous Information (Pharmacy Glycemic Mgmt Consult) 1 ea N/A UD PRN PRN Reason: Consult Stop: 12/18/20 16:10 Montelukast Sodium (Montelukast Sodium 10 Mg Tablet) 10 mg PO QPM [facility] Stop: 12/18/20 20:59 Last Admin: 12/15/20 22:06 Dose: 10 mg Documented by: Mupirocin (Mupirocin 2% Oint 22 Gm Tube) 1 appln EXT Q12 [facility] Stop: 12/19/20 20:59 Last Admin: 12/16/20 08:39 Dose: 1 appln Documented by: Ondansetron HCl (Ondansetron Inj 2 Mg/Ml 2 Ml Vial) 4 mg IV Q6H PRN PRN Reason: Nausea Stop: 12/18/20 16:10 Last Admin: 12/01/20 08:01 Dose: 4 mg Documented by: Pantoprazole Sodium (Pantoprazole 40 Mg Tab) 40 mg PO BID [facility] Stop: 01/04/21 20:59 Last Admin: 12/16/20 08:37 Dose: 40 mg Documented by: Polyethylene Glycol (Polyethylene (Miralax) 17 Gm Pack) 17 gm PO BID [facility] Stop: 01/01/21 20:59 Last Admin: 12/16/20 08:39 Dose: 17 gm Documented by: Potassium Chloride (Potassium Chloride Crtab 20 Meq Tabcr) 40 meq PO BID [facility] Stop: 01/08/21 20:59 Last Admin: 12/16/20 08:35 Dose: 40 meq Documented by: Sennosides (Senna 8.6 Mg Tab) 17.2 mg PO QAM [facility] Stop: 12/24/20 14:59 Last Admin: 12/16/20 08:37 Dose: 17.2 mg Documented by: Sodium Chloride (Sodium Chloride 0.65% Na Soln 45 Ml ([place])) 2 sprays NA Q1H PRN PRN Reason: dryness of nose Stop: 12/23/20 16:40 Last Admin: 12/01/20 08:02 Dose: 2 sprays Documented by: Sumatriptan Succinate (Sumatriptan Succinate 100 Mg Tab) 100 mg PO UD PRN PRN Reason: migraine/headache Stop: 01/07/21 04:52 Last Admin: 12/12/20 20:38 Dose: 100 mg Documented by: PG Care Time/CCT Total # of Minutes Spent Total Time Spent with Patient: Total time spent is greater than 50% in coordination of care (as documented) at patient's floor/unit and/or counseling patient: Coding Level of Care Code 81225 Subseq Hosp Care Lvl 3 Diagnoses Acute respiratory failure with hypoxia J96.01 Pneumonia due to 2019 novel coronavirus U07.1; J12.82 Asthma J45.909 UTI (urinary tract infection) N39.0 Right lower quadrant abdominal pain R10.31 Acute kidney injury N17.9 Acute blood loss anemia D62 Constipation K59.00 Type 2 diabetes mellitus with insulin therapy E11.9; Z79.4 Morbid obesity E66.01 Hypertension I10 GERD (gastroesophageal reflux disease) K21.9 Atrial flutter, paroxysmal I48.92 DVT prophylaxis Z29.9
[2020-12-16] MEDS: DEXTROMETHORPHAN POLYMR COMPLX 30 MG/5 ML UDP PO PRN (13:18)
--- NOTE | 2020-12-16 13:52 | Pharmacy Report ---
Pharmacy Glycemic Short Note 2 - Date of Service December 16, 2020 - Glycemic Short BSG Results (Last 24 hours): 12/15/20 12/15/20 12/16/20 17:01 20:53 06:36 Glucose 73 POC Glucose 169 H 122 H 12/16/20 12/16/20 08:23 12:13 Glucose POC Glucose 85 90 OUTPATIENT ANTIDIABETIC REGIMEN: * Basaglar 60 units SC HS * Ozempic 0.5mg SC monthly * Metformin ER 1000mg PO BID * HbA1c 6.3% on 09/27/20 ASSESSMENT: 12/16: * Rosalie received 241 units of SQ insulin yesterday and had decent glycemic control (82 units basal and 159 units bolus) * BSGs have been slightly below goal thus far today. Solu Medrol dose was decreased to 20 mg q12. * Will decrease basal insulin ~17%. * Loosen carb coverage * If steroids are d/c'ed this evening, regimen will likely require further adjustment 12/17 AM 12/15: * Rosalie received a total of 214 units of insulin yesterday (77 units basal + 137 units bolus) * This was ~30% increase from the previous day * BSGs were uncontrolled: [phone] mg/dL * Fasting BSG this AM was 159 mg/dL * NPH was increased by 20% starting last evening. Will continue this for today. * Given tight carb coverage, no change in Novolog at this time. 12/13: * Patient's BSGs yesterday were [phone] mg/dL. * Patient received 187 units of insulin (60 units of basal and 117 units of bolus). This represents an increase of 25% compared to 12/11/20. * Fasting BSG today was 110 mg/dL. * Continue NPH. Solu-Medrol decreased to 40 mg IV q12 but do not expect to see any difference in insulin requirements. * Further tighten aggressive Novolog due to hyperglycemia with steroids at lunch. 12/12: * Patient's BSGs yesterday were [phone] mg/dL. * Patient received 150 units of insulin (60 units of basal and 90 units of bolus). * Fasting BSG today was 228 mg/dL. * Continue morning NPH. Increase PM NPH as fasting elevated with Solu-Medrol 40 mg IV q8. * Further tighten aggressive Novolog due to hyperglycemia with steroids. PLAN FOR INPATIENT GLYCEMIC CONTROL: * Hold outpatient Metformin and Ozempic diabetes medications * Basal insulin - decrease * NPH 35 units SQ BIDM * Bolus insulin - loosen carb coverge * NovoLog per scale ACHS or Q6hrs while NPO * Goal Range: Low 110 mg/dL - High 140 mg/dL * Correction Factor: 10 mg/dL/unit * Nutritional / Prandial insulin per carb ratio of 1 unit per 2 grams CHO consumed (1.2 grams CHO consumed at breakfast) * Once steroids are d/c'ed, start Correction factor; 15, Carb ratio: 5 PLAN FOR DISCHARGE: * HbA1c 6.3% at goal. Continue home regimen assuming frequent hypoglycemia as an outpatient is not occurring and assuming no contraindications exist at discharge
[2020-12-16] MEDS ORDERED: INSULIN HUMAN NPH SC SCH (17:00)
[2020-12-16] MEDS: MONTELUKAST SODIUM 10 MG TABLET PO SCH (21:01)
[2020-12-16] MEDS: ACETAMINOPHEN 325 MG TAB PO PRN (22:39)
[2020-12-17] MEDS: ALBUT/IPRATROP 3MG/0.5MG NEB 3 ML VIAL NEB SCH ×6 (03:07→23:18)
[2020-12-17] MEDS: FORMOTEROL 20 MCG/2 ML VIAL NEB SCH ×2 (08:04→19:12)
[2020-12-17] MEDS: CYANOCOBALAMIN 500 MCG TABLET (VITAMIN B-12) PO SCH (09:13)
[2020-12-17] MEDS: methylPREDNISolone 20 MG in SYRINGE 0 ML IV SCH (09:13)
[2020-12-17] MEDS: buPROPion SR 100 MG TABCR PO SCH ×2 (09:13→20:10)
[2020-12-17] MEDS: BENZONATATE 100 MG CAPSULE PO SCH ×3 (09:13→20:08)
[2020-12-17] MEDS: FAMOTIDINE 20 MG TAB PO SCH ×2 (09:13→20:09)
[2020-12-17] MEDS: SENNA 8.6 MG TAB PO SCH (09:14)
[2020-12-17] MEDS: PANTOprazole 40 MG TAB PO SCH ×2 (09:14→20:08)
[2020-12-17] MEDS: FUROSEMIDE 20 MG TAB PO SCH (09:14)
[2020-12-17] MEDS: POTASSIUM CHLORIDE CRTAB 20 MEQ TABCR PO SCH ×2 (09:14→20:09)
[2020-12-17] MEDS: POLYETHYLENE (MIRALAX) 17 GM PACK PO SCH ×2 (09:14→20:11)
[2020-12-17] MEDS: MUPIROCIN 2% OINT 22 GM TUBE EXT SCH ×2 (09:14→20:12)
[2020-12-17] MEDS: DICLOFENAC SOD 1% GEL 100 GM TUBE EXT SCH ×2 (09:14→20:10)
[2020-12-17] MEDS: METOPROLOL TARTRATE 25 MG TAB PO SCH ×2 (09:15→20:07)
[2020-12-17] MEDS: guaiFENesin 600 MG TABCR PO SCH ×2 (09:15→20:10)
[2020-12-17] MEDS: HEPARIN SOD 5,000 UNIT/0.5 ML VIAL SQ SCH ×2 (09:15→20:09)
[2020-12-17] MEDS: FLUTICASONE FUROATE 200MCG 14 PUFFS/INHALER INH SCH (09:15)
[2020-12-17] MEDS: INSULIN HUMAN NPH SC SCH ×2 (09:16→17:51)
[2020-12-17] MEDS: LIDOCAINE 5% 1 PATCH TD SCH (09:16)
[2020-12-17] MEDS: INSULIN ASPART 100 UNITS/ML 3 ML PEN SC SCH ×4 (09:18→21:47)
--- NOTE | 2020-12-17 10:04 | Hospitalist Progress Note ---
Date of Service December 17, 2020 Assessment & Plan (1) Acute respiratory failure with hypoxia: Plan: patient was on Vapotherm for a long time, very slow to wean down to low flow CTA chest 12/08 without PE got her LAST DOSE of Solu Medrol 20mg IV today, 12/17 continue Lasix 20mg PO daily but can likely stop after discharge today she is down to 2L at rest, less dyspnea on exertion, recovers faster OOB in the chair, looks better, breathing easier suspect she will need oxygen a long time even after discharge work up on 12/12 with pulmonology: pH is 7.4, CO2 34, PaO2 73 procalcitonin, BNP, CRP normal CXR is improving pulmonary signed off, she can follow up with them in clinic ultimate goal is [facility], likely ready by Friday, CM can apply for auth tomorrow (2) Pneumonia due to 2019 novel coronavirus: Plan: SEVERE COVID pneumonia, hospitalized since 11/18/20 able to come off respiratory isolation likely will need rehab, extreme exertional fatigue completed 14 days of baricitinib completed extended course of dexamethasone IV, changed to Solu Medrol on 12/08 when oxygen requirements went back up, treating asthma last dose of Solu Medrol on 12/17 Completed 5-day course of Remdesivir. CRP initially high but improved with steroids/baricitinib. Continue aggressive pulmonary toilet. Nebs [place], helping the most with cough tessalon 200mg TID, mucinex 600mg BID, guaitussin ac q6h prn. 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 albuterol nebulizers and steroids, stop Solu Medrol after today follows w/ Dr Sina Estrada outpatient (4) UTI (urinary tract infection): Plan: Klebsiella and proteus uti found, on rocephin which is good for sensitiities complete 7 days as is a catheter associated uti finished 10/29 (5) Right lower quadrant abdominal pain: Plan: This is now coalesced into a large retroperitoneal bleed 19 x [address] scan from 12/06/2020. Hemoglobin did drop making his acute blood loss anemia from 12.9 g to 7.3 g. Patient transfused 2 units packed red blood cells. Patient had enoxaparin stopped on the aspirin stopped on the HGB remains stable after 2 units, it is 10.9 on 12/16 no abdominal pain, much more comfortable heparin SC resumed for DVT prophylaxis (6) Acute kidney injury: Plan: resolved, Cr remains < 1 meyer removed 12/16 continue Lasix 20mg PO daily for time being, could likely stop after discharge (7) Acute blood loss anemia: Plan: Acute blood loss anemia from abdominal musculature hematoma and large retroperitoneal hematoma this likely occurred due to coughing and abdominal wall stressors while being on anticoagulation of Lovenox 0.5 mg/kg subcu twice daily Hb is 10.9, has been stable ever since transfusion, no further evidence of bleeding (8) Constipation: Plan: senna + miralax no obstruction or ileus on KUB 11/29 Resolved, moving bowels (9) Type 2 diabetes mellitus with insulin therapy: Plan: Glycemic recs appreciated from the pharmacy team. Glycemic management appears to be much improved Cont NPH, lantus, and novolog. HbA1c <6.5% in September. Control adequate, monitor for hypoglycemia and hyperglycemia, no episodes the past 24 hours, today is last dose of Solu Medrol (10) Morbid obesity: Plan: risk factor for covid morbidity BMI has improved s/p diuresis BMI high 30s (11) Hypertension: Plan: cont metoprolol. hold aldactone. (12) GERD (gastroesophageal reflux disease): Plan: Protonix BID with vomiting H2 susan. (13) Atrial flutter, paroxysmal: Plan: History of. No a.fib/flutter while here. (14) DVT prophylaxis: Plan: Patient is sequential compression devices. restart heparin sc High risk of VTE given severity of COVID illness, famHx of VTE, etc. would recommend Xarelto 10mg daily for 30 days after discharge Plan: keep over the weekend, [facility] Friday if they have a bed, have CM apply for insurance on Monday 12/18 Admission and Anticipated Discharge Date Admission Date: November 18, 2020 Subjective patient doing well again today, smiling, laughing she had a BM and she is making urine after meyer removed yesterday still tough for her to get up on her own to the bedside commode due to dyspnea still with dry cough, had one episode where she coughed up some green sputum, will monitor for any further sputum eating really well, no fever she feels like she is getting stronger and will be ready for [facility] on Friday Review of Systems Review of Systems: All systems reviewed & are unremarkable except as noted in Subjective Respiratory: + cough, + dyspnea and + dyspnea on exertion Physical Exam Physical Exam: General: well developed, obese female, no distress, comfortable Neck: supple, trachea midline, normal thyroid Lungs: + cough, no wheezing, no crackles, normal effort, no accessory muscles Heart: regular S1 and S2, no murmur, peripheral pulses normal, capillary refill normal, no edema Abdomen: soft, no tenderness, non distended, normal bowel sounds, tympanic to percussion Extremities: normal in appearance, no cyanosis, no petechiae, strength is 5/5 bilaterally Neuro: awake, cooperative, moves all extremities, no focal motor deficits, CN II-XII intact, sensation in extremities intact, normal speech Skin: warm, dry, no rash, normal turgor Psych: Awake, alert oriented x 3, calm Results & Data Results & Data ([facility]) Vital Signs (Past 12 Hours) Vital Signs Temp Pulse Pulse Pulse Resp BP Pulse Ox 12/17/20 08:05 66 16 97 12/17/20 07:25 37.1 C 66 20 121/77 96 12/17/20 03:08 70 15 98 12/16/20 23:08 67 12 97 12/16/20 22:11 37.1 C 74 16 135/81 90 Laboratory Results Laboratory Results - last 24 hr 12/16/20 12/16/20 12/16/20 12:13 17:27 21:33 POC Glucose 90 112 H 128 H 12/17/20 08:26 POC Glucose 80 Medications Administered Current Inpatient Medications Acetaminophen (Acetaminophen 325 Mg Tab) 650 mg PO Q4H PRN PRN Reason: Pain or Fever Stop: 12/18/20 16:10 Last Admin: 12/16/20 22:39 Dose: 650 mg Documented by: Albuterol (Albut/Ipratrop 3mg/0.5mg Neb 3 Ml Vial) 3 ml NEB Q4R GIANNA Stop: 01/06/21 14:59 Last Admin: 12/17/20 08:05 Dose: 3 ml Documented by: Albuterol (Albuterol 0.083% Nebu Soln 3 Ml Vial) 2.5 mg NEB Q2H PRN PRN Reason: sob Stop: 01/08/21 10:16 Benzonatate (Benzonatate 100 Mg Capsule) 200 mg PO TID GIANNA Stop: 12/21/20 11:09 Last Admin: 12/17/20 09:13 Dose: 200 mg Documented by: Bisacodyl (Bisacodyl 10 Mg Supp) 10 mg MD DAILY PRN PRN Reason: Constipation Stop: 12/31/20 10:27 Last Admin: 12/01/20 12:29 Dose: 10 mg Documented by: Bupropion HCl (Bupropion Sr 100 Mg Tabcr) 200 mg PO BID GIANNA Stop: 12/18/20 20:59 Last Admin: 12/17/20 09:13 Dose: 200 mg Documented by: Nystatin 30 ml/ Dexamethasone 3.75 mg/ Diphenhydramine HCl 300 mg/ Sucrose 45 ml/Microcrystalline Cellulose 45 ml/ BARCODE IDENTIFIER 1 ea 0 ml PO Q4H GIANNA Stop: 01/13/21 11:59 Last Admin: 12/17/20 09:13 Dose: 5 ml Documented by: Cyanocobalamin (Cyanocobalamin 500 Mcg Tablet (Vitamin B-12)) 2,500 mcg PO QAM GIANNA Stop: 12/19/20 08:59 Last Admin: 12/17/20 09:13 Dose: 2,500 mcg Documented by: Dextromethorphan Polymer Complex (Dextromethorphan Polymr Complx 30 Mg/5 Ml Udp) 30 mg PO Q6H PRN PRN Reason: Cough Stop: 12/18/20 19:47 Last Admin: 12/16/20 13:18 Dose: 30 mg Documented by: Dextrose (Dextrose 50% 50 Ml Syringe) 25 - 50 ml IV UD PRN; Protocol PRN Reason: Hypoglycemia Protocol Stop: 12/19/20 07:29 Diclofenac Sodium (Diclofenac Sod 1% Gel 100 Gm Tube) 4 gm EXT Q12 GIANNA Stop: 12/19/20 20:59 Last Admin: 12/17/20 09:14 Dose: 4 gm Documented by: Famotidine (Famotidine 20 Mg Tab) 20 mg PO BID [facility] Stop: 01/04/21 20:59 Last Admin: 12/17/20 09:13 Dose: 20 mg Documented by: Fluticasone Furoate (Fluticasone Furoate 200mcg 14 Puffs/Inhaler) 1 puffs INH DAILY [facility]; Protocol Stop: 12/21/20 11:59 Last Admin: 12/17/20 09:15 Dose: 1 puffs Documented by: Formoterol Fumarate (Formoterol 20 Mcg/2 Ml Vial) 20 mcg NEB BIDR [facility] Stop: 01/09/21 13:14 Last Admin: 12/17/20 08:04 Dose: 20 mcg Documented by: Furosemide (Furosemide 20 Mg Tab) 20 mg PO QAM [facility] Stop: 01/14/21 08:59 Last Admin: 12/17/20 09:14 Dose: 20 mg Documented by: Glucagon (Glucagon For Inj 1 Mg Vial) 1 mg IM UD PRN; Protocol PRN Reason: Hypoglycemia Protocol Stop: 12/19/20 07:29 Glucose (Glucose 40% Gel 15 Gm Tube) 15 - 30 gm PO UD PRN; Protocol PRN Reason: Hypoglycemia Protocol Stop: 12/19/20 07:29 Glucose (Glucose 10 Tabs/Tube) 4 - 8 tabs PO UD PRN; Protocol PRN Reason: Hypoglycemia Protocol Stop: 12/19/20 07:29 Guaifenesin (Guaifenesin 600 Mg Tabcr) 600 mg PO Q12 GIANNA Stop: 12/21/20 20:59 Last Admin: 12/17/20 09:15 Dose: 600 mg Documented by: Guaifenesin/Codeine Phosphate (Guaifenesin/Codeine 100mg/10mg 5ml Udc) 5 ml PO Q6H PRN PRN Reason: Cough Stop: 12/21/20 11:08 Last Admin: 12/04/20 12:50 Dose: 5 ml Documented by: Heparin Sodium (Porcine) (Heparin Sod 5,000 Unit/0.5 Ml Vial) 5,000 units SQ Q12 GIANNA Stop: 01/08/21 20:59 Last Admin: 12/17/20 09:15 Dose: 5,000 units Documented by: Lorazepam (Ativan) 0.25 mg in 0.5 mls @ 0.5 mls/min IV Q6H PRN PRN Reason: anxiety Stop: 12/25/20 15:09 Last Admin: 12/04/20 19:29 Dose: 0.5 mls/min Documented by: Methylprednisolone 20 mg/ (Syringe) 0.32 mls @ 1.5 mls/min IV Q12H [facility] Stop: 12/17/20 11:00 Last Admin: 12/17/20 09:13 Dose: 1.5 mls/min Documented by: Insulin Aspart (Insulin Aspart 100 Units/Ml 3 Ml Pen) 0 units SC ACHS [facility]; Protocol Stop: 01/16/21 07:29 Last Admin: 12/17/20 09:18 Dose: 15 units Documented by: Insulin Human NPH (Insulin Human Nph) 28 units SC BIDM [facility]; Protocol Stop: 01/16/21 08:59 Last Admin: 12/17/20 09:16 Dose: 28 units Documented by: Lidocaine (Lidocaine 5% 1 Patch) 1 patch TD QAM [facility] Stop: 12/19/20 09:59 Last Admin: 12/17/20 09:16 Dose: 1 patch Documented by: Lorazepam (Lorazepam 0.5 Mg Tab) 0.5 mg PO Q6H PRN PRN Reason: Anxiety Stop: 12/18/20 19:50 Last Admin: 12/12/20 09:08 Dose: 0.5 mg Documented by: Magnesium Citrate (Magnesium Citrate 296 Ml/Btl) 50 ml PO DAILY PRN PRN Reason: No BM w/in 48 hours Stop: 01/01/21 21:01 Menthol (Cough Drop (Sugar Free) Anahy 24 Anahy/1 Box) 1 anahy BUCCAL Q1H PRN PRN Reason: Sore Throat Stop: 12/23/20 16:29 Last Admin: 11/29/20 12:52 Dose: 1 anahy Documented by: Metoprolol Tartrate (Metoprolol Tartrate 25 Mg Tab) 75 mg PO BID [facility] Stop: 12/18/20 20:59 Last Admin: 12/17/20 09:15 Dose: 75 mg Documented by: Miscellaneous (Carbohydrates For Hypoglycemia ) 15 - 30 gm PO UD PRN PRN Reason: Hypoglycemia Treatment Stop: 12/19/20 07:29 Miscellaneous (Remove Lidoderm Patch) 1 ea N/A DAILY@2100 [facility] Stop: 12/19/20 20:59 Last Admin: 12/16/20 21:02 Dose: 1 ea Documented by: Miscellaneous Information (Pharmacy Glycemic Mgmt Consult) 1 ea N/A UD PRN PRN Reason: Consult Stop: 12/18/20 16:10 Montelukast Sodium (Montelukast Sodium 10 Mg Tablet) 10 mg PO QPM [facility] Stop: 12/18/20 20:59 Last Admin: 12/16/20 21:01 Dose: 10 mg Documented by: Mupirocin (Mupirocin 2% Oint 22 Gm Tube) 1 appln EXT Q12 GIANNA Stop: 12/19/20 20:59 Last Admin: 12/17/20 09:14 Dose: 1 appln Documented by: Ondansetron HCl (Ondansetron Inj 2 Mg/Ml 2 Ml Vial) 4 mg IV Q6H PRN PRN Reason: Nausea Stop: 12/18/20 16:10 Last Admin: 12/01/20 08:01 Dose: 4 mg Documented by: Pantoprazole Sodium (Pantoprazole 40 Mg Tab) 40 mg PO BID GIANNA Stop: 01/04/21 20:59 Last Admin: 12/17/20 09:14 Dose: 40 mg Documented by: Polyethylene Glycol (Polyethylene (Miralax) 17 Gm Pack) 17 gm PO BID GIANNA Stop: 01/01/21 20:59 Last Admin: 12/17/20 09:14 Dose: 17 gm Documented by: Potassium Chloride (Potassium Chloride Crtab 20 Meq Tabcr) 40 meq PO BID [facility] Stop: 01/08/21 20:59 Last Admin: 12/17/20 09:14 Dose: 40 meq Documented by: Sennosides (Senna 8.6 Mg Tab) 17.2 mg PO QAM [facility] Stop: 12/24/20 14:59 Last Admin: 12/17/20 09:14 Dose: 17.2 mg Documented by: Sodium Chloride (Sodium Chloride 0.65% Na Soln 45 Ml ([place])) 2 sprays NA Q1H PRN PRN Reason: dryness of nose Stop: 12/23/20 16:40 Last Admin: 12/01/20 08:02 Dose: 2 sprays Documented by: Sumatriptan Succinate (Sumatriptan Succinate 100 Mg Tab) 100 mg PO UD PRN PRN Reason: migraine/headache Stop: 11/21/21 04:52 Last Admin: 12/12/20 20:38 Dose: 100 mg Documented by: PG Care Time/CCT Total # of Minutes Spent Total Time Spent with Patient: Total time spent is greater than 50% in coordination of care (as documented) at patient's floor/unit and/or counseling patient: Coding Level of Care Code 68911 Subseq Hosp Care Lvl 2 Diagnoses Acute respiratory failure with hypoxia J96.01 Pneumonia due to 2019 novel coronavirus U07.1; J12.82 Asthma J45.909 UTI (urinary tract infection) N39.0 Right lower quadrant abdominal pain R10.31 Acute kidney injury N17.9 Acute blood loss anemia D62 Constipation K59.00 Type 2 diabetes mellitus with insulin therapy E11.9; Z79.4 Morbid obesity E66.01 Hypertension I10 GERD (gastroesophageal reflux disease) K21.9 Atrial flutter, paroxysmal I48.92 DVT prophylaxis Z29.9
[2020-12-17] MEDS: DEXTROMETHORPHAN POLYMR COMPLX 30 MG/5 ML UDP PO PRN (12:27)
--- NOTE | 2020-12-17 13:48 | Pharmacy Report ---
Pharmacy Glycemic Short Note 2 - Date of Service December 17, 2020 - Glycemic Short BSG Results (Last 24 hours): 12/16/20 12/16/20 12/17/20 17:27 21:33 08:26 POC Glucose 112 H 128 H 80 12/17/20 12:21 POC Glucose 168 H OUTPATIENT ANTIDIABETIC REGIMEN: * Basaglar 60 units SC HS * Ozempic 0.5mg SC monthly * Metformin ER 1000mg PO BID * HbA1c 6.3% on 09/27/20 ASSESSMENT: 12/17: * Rosalie received 177 units of SQ insulin yesterday (77 units basal and 100 units bolus) with excellent glycemic control * She received her last dose of solu medrol IV this morning, therefore I anticipate insulin needs to decrease significantly * decrease NPH by ~ 30% - may consider transition to Lantus on 12/18 per patient takes once daily Basaglar at home * loosen Novolog CF and CR 12/16: * Rosalie received 241 units of SQ insulin yesterday and had decent glycemic control (82 units basal and 159 units bolus) * BSGs have been slightly below goal thus far today. Solu Medrol dose was decreased to 20 mg q12. * Will decrease basal insulin ~17%. * Loosen carb coverage * If steroids are d/c'ed this evening, regimen will likely require further adjustment 12/17 AM 12/15: * Rosalie received a total of 214 units of insulin yesterday (77 units basal + 137 units bolus) * This was ~30% increase from the previous day * BSGs were uncontrolled: [phone] mg/dL * Fasting BSG this AM was 159 mg/dL * NPH was increased by 20% starting last evening. Will continue this for today. * Given tight carb coverage, no change in Novolog at this time. 12/13: * Patient's BSGs yesterday were [phone] mg/dL. * Patient received 187 units of insulin (60 units of basal and 117 units of bolus). This represents an increase of 25% compared to 12/11/20. * Fasting BSG today was 110 mg/dL. * Continue NPH. Solu-Medrol decreased to 40 mg IV q12 but do not expect to see any difference in insulin requirements. * Further tighten aggressive Novolog due to hyperglycemia with steroids at [facility]. PLAN FOR INPATIENT GLYCEMIC CONTROL: * Hold outpatient Metformin and Ozempic diabetes medications * Basal insulin - decrease * NPH 28 units SQ BIDM * Bolus insulin - loosen * NovoLog per scale ACHS or Q6hrs while NPO * Goal Range: Low 110 mg/dL - High 140 mg/dL * Correction Factor: 10 mg/dL/unit * Nutritional / Prandial insulin per carb ratio of 1 unit per 3 grams CHO consumed * Starting 11/1 am: Correction factor; 15, Carb ratio: 5 PLAN FOR DISCHARGE: * HbA1c 6.3% at goal. Continue home regimen assuming frequent hypoglycemia as an outpatient is not occurring and assuming no contraindications exist at discharge
[2020-12-17] MEDS: MONTELUKAST SODIUM 10 MG TABLET PO SCH (20:10)
[2020-12-18] MEDS: ALBUT/IPRATROP 3MG/0.5MG NEB 3 ML VIAL NEB SCH ×6 (02:59→22:45)
[2020-12-18] MEDS: FORMOTEROL 20 MCG/2 ML VIAL NEB SCH ×2 (07:13→19:14)
[2020-12-18] MEDS: POLYETHYLENE (MIRALAX) 17 GM PACK PO SCH ×2 (07:58→20:31)
[2020-12-18] MEDS: BENZONATATE 100 MG CAPSULE PO SCH ×3 (08:00→20:33)
[2020-12-18] MEDS: ACETAMINOPHEN 325 MG TAB PO PRN ×2 (08:00→15:49)
[2020-12-18] MEDS: guaiFENesin 600 MG TABCR PO SCH ×2 (08:00→20:32)
[2020-12-18] MEDS: FAMOTIDINE 20 MG TAB PO SCH ×2 (08:00→20:34)
[2020-12-18] MEDS: METOPROLOL TARTRATE 25 MG TAB PO SCH ×2 (08:00→20:36)
[2020-12-18] MEDS: PANTOprazole 40 MG TAB PO SCH ×2 (08:01→20:33)
[2020-12-18] MEDS: HEPARIN SOD 5,000 UNIT/0.5 ML VIAL SQ SCH ×2 (08:01→20:35)
[2020-12-18] MEDS: buPROPion SR 100 MG TABCR PO SCH ×2 (08:01→20:36)
[2020-12-18] MEDS: POTASSIUM CHLORIDE CRTAB 20 MEQ TABCR PO SCH ×2 (08:01→20:34)
[2020-12-18] MEDS: SENNA 8.6 MG TAB PO SCH (08:02)
[2020-12-18] MEDS: FUROSEMIDE 20 MG TAB PO SCH (08:02)
[2020-12-18] MEDS: CYANOCOBALAMIN 500 MCG TABLET (VITAMIN B-12) PO SCH (08:02)
[2020-12-18] MEDS: FLUTICASONE FUROATE 200MCG 14 PUFFS/INHALER INH SCH (08:03)
[2020-12-18] MEDS: LIDOCAINE 5% 1 PATCH TD SCH (08:03)
[2020-12-18] MEDS: DICLOFENAC SOD 1% GEL 100 GM TUBE EXT SCH ×2 (08:03→20:36)
[2020-12-18] MEDS: MUPIROCIN 2% OINT 22 GM TUBE EXT SCH ×2 (08:03→20:37)
[2020-12-18] MEDS: INSULIN ASPART 100 UNITS/ML 3 ML PEN SC SCH ×4 (09:02→20:56)
--- NOTE | 2020-12-18 10:08 | Hospitalist Progress Note ---
Date of Service December 18, 2020 Assessment & Plan (1) Acute respiratory failure with hypoxia: Plan: patient was on Vapotherm for a long time, very slow to wean down to low flow CTA chest 12/08 without PE got her LAST DOSE of Solu Medrol 20mg IV today, 12/17 continue Lasix 20mg PO daily but can likely stop after discharge today she is down to 2L at rest, less dyspnea on exertion, recovers faster OOB in the chair, looks better, breathing easier suspect she will need oxygen a long time even after discharge work up on 12/12 with pulmonology: pH is 7.4, CO2 34, PaO2 73 procalcitonin, BNP, CRP normal CXR is improving pulmonary signed off, she can follow up with them in clinic ultimate goal is [facility], (2) Pneumonia due to 2019 novel coronavirus: Plan: SEVERE COVID pneumonia, hospitalized since 11/18/20 able to come off respiratory isolation likely will need rehab, extreme exertional fatigue completed 14 days of baricitinib completed extended course of dexamethasone IV, changed to Solu Medrol on 12/08 when oxygen requirements went back up, treating asthma last dose of Solu Medrol on 12/17 Completed 5-day course of Remdesivir. CRP initially high but improved with steroids/baricitinib. Continue aggressive pulmonary toilet. Nebs [place], helping the most with cough tessalon 200mg TID, mucinex 600mg BID, guaitussin ac q6h prn. 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 albuterol nebulizers and steroids, stop Solu Medrol after today follows w/ Dr Sina Estrada outpatient (4) UTI (urinary tract infection): Plan: Klebsiella and proteus uti found, on rocephin which is good for sensitiities complete 7 days as is a catheter associated uti finished 12/15 (5) Right lower quadrant abdominal pain: Plan: This is now coalesced into a large retroperitoneal bleed 19 x [address] scan from 12/06/2020. Hemoglobin did drop making his acute blood loss anemia from 12.9 g to 7.3 g. Patient transfused 2 units packed red blood cells. Patient had enoxaparin stopped on the aspirin stopped on the HGB remains stable after 2 units, it is 10.9 on 12/16 no abdominal pain, much more comfortable heparin SC resumed for DVT prophylaxis (6) Acute kidney injury: Plan: resolved, Cr remains < 1 meyer removed 12/16 continue Lasix 20mg PO daily for time being, could likely stop after discharge (7) Acute blood loss anemia: Plan: Acute blood loss anemia from abdominal musculature hematoma and large retroperitoneal hematoma this likely occurred due to coughing and abdominal wall stressors while being on anticoagulation of Lovenox 0.5 mg/kg subcu twice daily Hb is 10.9, has been stable ever since transfusion, no further evidence of bleeding (8) Constipation: Plan: senna + miralax no obstruction or ileus on KUB 11/29 Resolved, moving bowels (9) Type 2 diabetes mellitus with insulin therapy: Plan: Glycemic recs appreciated from the pharmacy team. Glycemic management appears to be much improved Cont NPH, lantus, and novolog. HbA1c <6.5% in September. Control adequate, monitor for hypoglycemia and hyperglycemia, no episodes the past 24 hours, today is last dose of Solu Medrol (10) Morbid obesity: Plan: risk factor for covid morbidity BMI has improved s/p diuresis BMI high 30s (11) Hypertension: Plan: cont metoprolol. hold aldactone. (12) GERD (gastroesophageal reflux disease): Plan: Protonix BID with vomiting H2 susan. (13) Atrial flutter, paroxysmal: Plan: History of. No a.fib/flutter while here. (14) DVT prophylaxis: Plan: Patient is sequential compression devices. restart heparin sc High risk of VTE given severity of COVID illness, famHx of VTE, etc. would recommend Xarelto 10mg daily for 30 days after discharge Plan: keep over the weekend, [facility] Friday if they have a bed, have CM apply for insurance on Monday 12/18 Admission and Anticipated Discharge Date Admission Date: November 18, 2020 Subjective Patient looks better than when I last saw her most a week ago she is conversant she says she still slightly fatigued when she gets around the room. I did speak to her briefly as he entered the room. They both are assured that they are leaving tomorrow to go to [facility]. I did attempt to reach out to shoe caser she was not available at the time I called according to the chart there is no confirmed time of transfer arranged. Nor insurance authorization Review of Systems Review of Systems: Mild respiratory distress and fatigue no headache, no visual changes no speech or swallowing issues no chest pain, pressure or palpitations Remains with exertional shortness of breath, coughing is improved improving abdominal pain No complaints of dysuria, has had Meyer removed with successful urination no focal joint pain or swelling no back pain, CVA tenderness or radicular pain Bilateral flank bruising no focal signs of weakness or numbness or altered sensation Much more upbeat less tearful does not appear to be depressed any longer Physical Exam Physical Exam: The patient appeared well nourished and normally developed. Abdominal pain is improving dyspnea is improving Vital signs as documented. Head exam is normocephalic atraumatic Neck is without JVD, thyromegaly, or carotid bruits. Lungs continue with faint bibasilar crackles, most prominent at the left base Cardiac exam, Rhythm is regular.. No murmurs, rubs or gallops. Abdominal exam reveals hyperactive bowel sounds, bilateral lower quadrant pain bruising on the bilateral flanks Extremities are nonedematous and both pedal pulses are present, no swelling or chords Neurologic exam is alert and oriented, no focal loss of strength or sensation Skin is with increasing bruising on her sides consistent with retroperitoneal bleed Psychologically is without concerns for anxiety or depression Results & Data Results & Data ([facility]) Vital Signs (Past 12 Hours) Vital Signs Temp Pulse Pulse Resp BP Pulse Ox 12/18/20 07:16 64 18 99 12/18/20 06:53 98.1 F 68 18 111/67 99 12/18/20 03:00 73 14 99 12/17/20 23:19 67 12 99 PG Care Time/CCT Total # of Minutes Spent Total Time Spent with Patient: Total time spent is greater than 50% in coordination of care (as documented) at patient's floor/unit and/or counseling patient: Coding Level of Care Code 45448 Subseq Hosp Care Lvl 1 Diagnoses Acute respiratory failure with hypoxia J96.01 Pneumonia due to 2019 novel coronavirus U07.1; J12.82 Asthma J45.909 UTI (urinary tract infection) N39.0 Right lower quadrant abdominal pain R10.31 Acute kidney injury N17.9 Acute blood loss anemia D62 Constipation K59.00 Type 2 diabetes mellitus with insulin therapy E11.9; Z79.4 Morbid obesity E66.01 Hypertension I10 GERD (gastroesophageal reflux disease) K21.9 Atrial flutter, paroxysmal I48.92 DVT prophylaxis Z29.9
--- NOTE | 2020-12-18 10:59 | Pharmacy Report ---
Pharmacy Glycemic Short Note 2 - Date of Service December 18, 2020 - Glycemic Short BSG Results (Last 24 hours): 12/17/20 12/17/20 12/17/20 12:21 17:27 21:20 POC Glucose 168 H 159 H 124 H 12/18/20 12/18/20 07:57 08:16 POC Glucose 54 L* 77 OUTPATIENT ANTIDIABETIC REGIMEN: * Basaglar 60 units SC HS * Ozempic 0.5mg SC monthly * Metformin ER 1000mg PO BID * HbA1c 6.3% on 09/27/20 ASSESSMENT: 12/18: * Patient required 125 units of insulin yesterday, of which 56 units were NPH * BSGs stable yesterday, steroids d/c yesterday AM * Fasting BSG low this AM 54 mg/dL - treated per hypoglycemia protocol, up to 77 mg/dL. CF/CR loosened with steroids no longer on board * Will hold long acting insulin this AM and plan to resume home Lantus either at dinner or HS tonight for easier transition to home regimen 12/17: * Rosalie received 177 units of SQ insulin yesterday (77 units basal and 100 units bolus) with excellent glycemic control * She received her last dose of solu medrol IV this morning, therefore I an ticipate insulin needs to decrease significantly * decrease NPH by ~ 30% - may consider transition to Lantus on 12/18 per patient takes once daily Basaglar at home * loosen Novolog CF and CR 12/16: * Rosalie received 241 units of SQ insulin yesterday and had decent glycemic control (82 units basal and 159 units bolus) * BSGs have been slightly below goal thus far today. Solu Medrol dose was decreased to 20 mg q12. * Will decrease basal insulin ~17%. * Loosen carb coverage * If steroids are d/c'ed this evening, regimen will likely require further adjustment 12/17 AM 12/15: * Rosalie received a total of 214 units of insulin yesterday (77 units basal + 137 units bolus) * This was ~30% increase from the previous day * BSGs were uncontrolled: [phone] mg/dL * Fasting BSG this AM was 159 mg/dL * NPH was increased by 20% starting last evening. Will continue this for today. * Given tight carb coverage, no change in Novolog at this time. 12/13: * Patient's BSGs yesterday were [phone] mg/dL. * Patient received 187 units of insulin (60 units of basal and 117 units of bolus). This represents an increase of 25% compared to 12/11/20. * Fasting BSG today was 110 mg/dL. * Continue NPH. Solu-Medrol decreased to 40 mg IV q12 but do not expect to see any difference in insulin requirements. * Further tighten aggressive Novolog due to hyperglycemia with steroids at lunch. PLAN FOR INPATIENT GLYCEMIC CONTROL: * Hold outpatient Metformin and Ozempic diabetes medications * Basal insulin - change to Lantus * Lantus 40-60 units HS dependent on BSG value * Bolus insulin - loosen * NovoLog per scale ACHS or Q6hrs while NPO * Goal Range: Low 110 mg/dL - High 140 mg/dL * Correction Factor: 15 mg/dL/unit * Nutritional / Prandial insulin per carb ratio of 1 unit per 5 grams CHO consumed PLAN FOR DISCHARGE: * HbA1c 6.3% at goal. Continue home regimen assuming frequent hypoglycemia as an outpatient is not occurring and assuming no contraindications exist at discharge
[2020-12-18] MEDS: MONTELUKAST SODIUM 10 MG TABLET PO SCH (20:34)
[2020-12-18] MEDS ORDERED: INSULIN GLARGINE SOLOSTAR 100 UNITS/ML 3 ML PEN SC SCH (21:00)
[2020-12-18] MEDS: SUMAtriptan succinate 100 MG TAB PO PRN (21:03)
[2020-12-19] MEDS: ALBUT/IPRATROP 3MG/0.5MG NEB 3 ML VIAL NEB SCH ×3 (02:43→11:18)
[2020-12-19] MEDS: FORMOTEROL 20 MCG/2 ML VIAL NEB SCH (07:22)
[2020-12-19] MEDS: BENZONATATE 100 MG CAPSULE PO SCH ×2 (09:06→13:18)
[2020-12-19] MEDS: FLUTICASONE FUROATE 200MCG 14 PUFFS/INHALER INH SCH (09:06)
[2020-12-19] MEDS: CYANOCOBALAMIN 500 MCG TABLET (VITAMIN B-12) PO SCH (09:07)
[2020-12-19] MEDS: buPROPion SR 100 MG TABCR PO SCH (09:07)
[2020-12-19] MEDS: FUROSEMIDE 20 MG TAB PO SCH (09:10)
[2020-12-19] MEDS: FAMOTIDINE 20 MG TAB PO SCH (09:10)
[2020-12-19] MEDS: guaiFENesin 600 MG TABCR PO SCH (09:11)
[2020-12-19] MEDS: HEPARIN SOD 5,000 UNIT/0.5 ML VIAL SQ SCH (09:11)
[2020-12-19] MEDS: METOPROLOL TARTRATE 25 MG TAB PO SCH (09:13)
[2020-12-19] MEDS: MUPIROCIN 2% OINT 22 GM TUBE EXT SCH (09:14)
[2020-12-19] MEDS: PANTOprazole 40 MG TAB PO SCH (09:14)
[2020-12-19] MEDS: POLYETHYLENE (MIRALAX) 17 GM PACK PO SCH (09:15)
[2020-12-19] MEDS: POTASSIUM CHLORIDE CRTAB 20 MEQ TABCR PO SCH (09:15)
[2020-12-19] MEDS: SENNA 8.6 MG TAB PO SCH (09:15)
[2020-12-19] MEDS: INSULIN ASPART 100 UNITS/ML 3 ML PEN SC SCH ×2 (09:20→13:16)
[2020-12-19] MEDS: DICLOFENAC SOD 1% GEL 100 GM TUBE EXT SCH (11:01)
[2020-12-19] MEDS: LIDOCAINE 5% 1 PATCH TD SCH (11:02)
--- NOTE | 2020-12-19 12:45 | Pharmacy Report ---
Pharmacy Glycemic Short Note 2 - Date of Service December 19, 2020 - Glycemic Short BSG Results (Last 24 hours): 12/18/20 12/18/20 12/19/20 17:01 20: 08:13 POC Glucose 152 H 184 H 88 12/19/20 12:13 POC Glucose 120 H OUTPATIENT ANTIDIABETIC REGIMEN: * Basaglar 60 units SC HS * Ozempic 0.5mg SC monthly * Metformin ER 1000mg PO BID * HbA1c 6.3% on 09/27/20 ASSESSMENT: 12/19: * Patient received total of 50 units of insulin yesterday, of which 25 units were Lantus * Fasting BSG 88 mg/dL - will continue with Lantus scale 20-25 units HS * Tighten CR slightly today 12/18: * Patient required 125 units of insulin yesterday, of which 56 units were NPH * BSGs stable yesterday, steroids d/c yesterday AM * Fasting BSG low this AM 54 mg/dL - treated per hypoglycemia protocol, up to 77 mg/dL. CF/CR loosened with steroids no longer on board * Will hold long acting insulin this AM and plan to resume home Lantus either at dinner or HS tonight for easier transition to home regimen 12/17: * Rosalie received 177 units of SQ insulin yesterday (77 units basal and 100 units bolus) with excellent glycemic control * She received her last dose of solu medrol IV this morning, therefore I anticipate insulin needs to decrease significantly * decrease NPH by ~ 30% - may consider transition to Lantus on 12/18 per patient takes once daily Basaglar at home * loosen Novolog CF and CR 12/16: * Rosalie received 241 units of SQ insulin yesterday and had decent glycemic control (82 units basal and 159 units bolus) * BSGs have been slightly below goal thus far today. Solu Medrol dose was decreased to 20 mg q12. * Will decrease basal insulin ~17%. * Loosen carb coverage * If steroids are d/c'ed this evening, regimen will likely require further adjustment 12/17 AM 12/15: * Rosalie received a total of 214 units of insulin yesterday (77 units basal + 137 units bolus) * This was ~30% increase from the previous day * BSGs were uncontrolled: [phone] mg/dL * Fasting BSG this AM was 159 mg/dL * NPH was increased by 20% starting last evening. Will continue this for today. * Given tight carb coverage, no change in Novolog at this time. 12/13: * Patient's BSGs yesterday were [phone] mg/dL. * Patient received 187 units of insulin (60 units of basal and 117 units of bolus). This represents an increase of 25% compared to 12/11/20. * Fasting BSG today was 110 mg/dL. * Continue NPH. Solu-Medrol decreased to 40 mg IV q12 but do not expect to see any difference in insulin requirements. * Further tighten aggressive Novolog due to hyperglycemia with steroids at lunch. PLAN FOR INPATIENT GLYCEMIC CONTROL: * Hold outpatient Metformin and Ozempic diabetes medications * Basal insulin * Lantus 20-25 units HS depending on BSG value * Bolus insulin * NovoLog per scale ACHS or Q6hrs while NPO * Goal Range: Low 110 mg/dL - High 140 mg/dL * Correction Factor: 20 mg/dL/unit * Nutritional / Prandial insulin per carb ratio of 1 unit per 7 grams CHO consumed PLAN FOR DISCHARGE: * HbA1c 6.3% at goal. Continue home regimen assuming frequent hypoglycemia as an outpatient is not occurring and assuming no contraindications exist at discharge
[2020-12-19] MEDS: DEXTROMETHORPHAN POLYMR COMPLX 30 MG/5 ML UDP PO PRN (13:18)
--- NOTE | 2020-12-19 19:45 | Discharge Summary ---
Date of Service December 19, 2020 Admission HPI Per Admitting Provider Rosalie Mccormack is a 55 year old female who presents to the ER with shortness of breath and hypoxia. She is unvaccinated for COVID. Symptoms started on November 11. She is currently on day 9 of the illness. Initial symptoms of a cold with headache. She took Friday off work but reportedly her boss was mad so she did go to work from Friday to this week. She thought she had an asthma exacerbation so started on a medrol dosepak that she had for emergencies from the beginning of the illness. Symptoms include: shortness of breath, non- productive cough, headache, diarrhea, nausea/vomiting on off all week, fatigue, confusion, chest tightness. She has chronic myalgias from hip OA and lower back and left radiculopathy. She denies any fever, chills, loss of taste or smell or nasal congestion. She saw her PCP on November 16 and COVID was suspect and test ordered but she did not want to get it. Due to her reduced appetite she has not taken her medication for the last day including her diuretics. In the ER CXR showed bilateral ilfiltrates consistent with COVID-19 pneumonia and SARS-COV-2 PCR positive. She was desaturating to 85% on 15LPM O2 oxymask when seen and subsequently changed to BiPAP. She was referred to medicine for admission and ongoing management of COVID-19 pneumonia. Principal Diagnosis acute respiratory failure with hypoxia covid pneumonia acute blood loss anemia retroperitoneal bleed acute kidney injury resolved Discharge Exam The patient appeared well Vital signs as documented. Lungs a appear unlabored Extremities are nonedematous Neurologic exam is alert and oriented, no focal loss of strength or sensation Skin is with bruises to her flank Discharge Data Allergies Allergy/AdvReac Type Severity Reaction Status Date / Time codeine Allergy Intermediate SEVERE Verified 11/18/20 16:22 [From Tylenol-Codeine #3] MIGRAINES latex Allergy Intermediate LIPS Verified 11/18/20 16:22 SWELLING pravastatin Allergy Intermediate Hives Verified 11/18/20 16:22 simvastatin Allergy Intermediate Hives Verified 11/18/20 16:22 doxycycline Allergy Mild Rash Verified 11/18/20 16:22 erythromycin base Allergy Mild RASH Verified 11/18/20 16:22 Penicillins Allergy Mild RASH Verified 11/18/20 16:22 prednisone Allergy Mild RASH Verified 11/18/20 16:22 Sulfa (Sulfonamide Allergy Mild RASH Verified 11/18/20 16:22 Antibiotics) empagliflozin AdvReac Mild Increase Verified 11/18/20 16:22 [From Jardiance] yeast infections and pt reporting worsening mood hydrocodone AdvReac Mild SEVERE GASTON Verified 11/18/20 16:22 Consultations 11/18/20 13:17 ED Decision to Admit Stat 11/18/20 14:00 Consult Pulmonology Stat Ordered Studies 12/04/20 15:09 CT abd pelvis wo con Routine 12/05/20 13:18 US transvaginal Routine 12/05/20 15:26 US pelvic complete Routine 12/06/20 09:04 CT abd pelvis wo con Routine 12/06/20 18:07 CT angio abd pelvis wo/w con Stat 12/08/20 09:55 CT angio chest PE protocol Routine Hospital Course (1) Acute respiratory failure with hypoxia: patient was on Vapotherm for a long time, very slow to wean down to low flow CTA chest 12/08 without PE got her LAST DOSE of Solu Medrol 20mg 12/17 today she is down to 2-3L at rest, less dyspnea on exertion, recovers faster OOB in the chair, looks better, breathing easier suspect she will need oxygen a long time even after discharge work up on 12/12 with pulmonology: pH is 7.4, CO2 34, PaO2 73 procalcitonin, BNP, CRP normal CXR is improving pulmonary signed off, she can follow up with them in clinic (2) Pneumonia due to 2019 novel coronavirus: SEVERE COVID pneumonia, hospitalized since 11/18/20 able to come off respiratory isolation likely will need rehab, extreme exertional fatigue completed 14 days of baricitinib completed extended course of dexamethasone IV, changed to Solu Medrol on 12/08 when oxygen requirements went back up, treating asthma last dose of Solu Medrol on 12/17 Completed 5-day course of Remdesivir. CRP initially high but improved with steroids/baricitinib. 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 albuterol nebulizers and steroids, stop Solu Medrol after today follows w/ Dr Sina Estrada outpatient (4) UTI (urinary tract infection): Klebsiella and proteus uti found, on rocephin which is good for sensitiities complete 7 days as is a catheter associated uti finished 12/15 (5) Right lower quadrant abdominal pain: This is now coalesced into a large retroperitoneal bleed 19 x [address] scan from 12/06/2020. Hemoglobin did drop making his acute blood loss anemia from 12.9 g to 7.3 g. Patient transfused 2 units packed red blood cells. Patient had enoxaparin stopped on the aspirin stopped on the HGB remained stable after 2 units, it is 10.9 on 12/16 no abdominal pain, much more comfortable heparin SC resumed for DVT prophylaxis, continues at rehab until more mobile (6) Acute kidney injury: resolved, Cr remains < 1 meyer removed 12/16 (7) Acute blood loss anemia: Acute blood loss anemia from abdominal musculature hematoma and large retroperitoneal hematoma this likely occurred due to coughing and abdominal wall stressors while being on anticoagulation of Lovenox 0.5 mg/kg subcu twice daily Hb is 10.9, has been stable ever since transfusion, no further evidence of bleeding (8) Constipation: senna + miralax no obstruction or ileus on KUB 11/29 Resolved, moving bowels (9) Type 2 diabetes mellitus with insulin therapy: Glycemic recs appreciated from the pharmacy team. Glycemic management appears to be much improved Cont NPH, lantus, and novolog. HbA1c <6.5% in September. will need to transtion back to po meds once stable and off steroids (10) Morbid obesity: risk factor for covid morbidity BMI has improved s/p diuresis BMI high 30s (11) Hypertension: cont metoprolol. . (12) GERD (gastroesophageal reflux disease): Protonix BID with vomiting H2 susan. (13) Atrial flutter, paroxysmal: History of. No a.fib/flutter while here. (14) DVT prophylaxis: Patient is sequential compression devices. restart heparin sc High risk of VTE given severity of COVID illness, famHx of VTE, etc. pt has some dysphonia and oral thrush , adding diflucan at discharge consider ENT eval if not improved Total Time Total Time Spent Total Time Spent (In Minutes): It required greater than 30 minutes to prepare this patient for discharge Discharge Plan Discharge Items Patient Disposition: Transfer Inpatient Rehab Fac Reason For Visit: COVID-19, ACUTE HYPOXIC RESPIRATORY FAILURE Discharge Diagnosis: acute respiratory failure with hypoxia viral pneumonia covid viral infection acute renal failure resolved acute anemia retroperitoneal bleed Activity: Per Instructions section Non-emergency contact: Primary Care Provider Call non-emergency contact if: your symptoms worsen Follow-up/Referrals: Ankita Tony MD [Primary Care Provider] - Diet: Regular Addtl Attending Provider Instructions: please be sure to have surveillance of blood counts and renal function as we are coming off steroids to treat covid pneumonia blood glucose control may require more adjustments pt is on basal bolus insulin, may be able to transition to her oral regimen once off steroids and stable her home regimen included glimepiride, metformin consider continuing heparin sc until more active, this was restarted cautiously with retroperitoneal bleed if thrush and dysphonia persist consider ENT referral Pending Studies at Discharge: No Stand-Alone Forms: My [facility] Skilled Items Patient informed of condition?: Yes DNR: No Discharge Level of Care: Acute rehab Communicable Disease: No Discharge Prognosis: Stable Lines: None Urinary Catheter: No Medications and DC Order Prescriptions: New ipratropium-albuterol 0.5 mg-3 mg(2.5 mg base)/3 mL Solution For Nebulization 3 ml NEB Q4R Qty: 90 RF: 0 formoterol fumarate [Perforomist] 20 mcg/2 mL Solution For Nebulization 20 mcg NEB BIDR Qty: 2 RF: 0 sennosides [Senokot] 8.6 mg Tablet 17.2 mg PO QAM Qty: 60 RF: 0 famotidine 20 mg Tablet 20 mg PO BID Qty: 30 RF: 0 lorazepam 0.5 mg Tablet 0.5 mg PO Q6H PRN (Reason: anxiety) Qty: 30 RF: 0 sodium chloride [Saline Mist] 0.65 % Aerosol,[place] 2 spray NA Q1H PRN (Reason: dry nasal passages) Qty: 30 RF: 0 heparin, porcine (PF) 5,000 unit/0.5 mL Syringe 5,000 unit subcut Q12 Qty: 25 RF: 0 diclofenac sodium [Voltaren Arthritis Pain] 1 % Gel 4 g EXT Q12 Qty: 100 RF: 0 guaifenesin [Mucinex] 600 mg Tablet Extended Release 12hr 600 mg PO Q12 Qty: 14 RF: 0 Lantus Solostar U-100 Insulin 100 unit/mL (3 mL) Insulin Pen 25 unit SC HS Qty: 15 RF: 0 insulin aspart U-100 [Novolog Flexpen U-100 Insulin] 100 unit/mL (3 mL) Insulin Pen 1 unit SC ACHS Qty: 3 RF: 0 (DME) Oxygen Home Liters Per Minute See Rx Instructions .ROUTE Qty: 1 RF: 0 fluconazole 100 mg tablet 100 mg PO BID 7 Days Qty: 14 RF: 0 Continued omeprazole 20 mg capsule,delayed release(DR/EC) 20 mg PO BID Qty: 60 RF: 5 bupropion HCl 200 mg tablet sustained-release 12 hr 200 mg PO BID Qty: 180 RF: 3 fluticasone propionate [Allergy Relief (fluticasone)] 50 mcg/actuation spray,suspension 1 sprays INTNAS DAILY PRN (Reason: ALLERGIES) RF: 0 potassium chloride 297 mg PO BID RF: 0 sumatriptan succinate [Imitrex] 100 mg tablet See Rx Instructions PO .COMPLEX Qty: 10 RF: 5 levalbuterol tartrate [Xopenex HFA] 45 mcg/actuation HFA aerosol inhaler 2 inh INH Q6H PRN (Reason: shortness of breath or wheezing) Qty: 15 RF: 3 montelukast 10 mg tablet 10 mg PO QPM Qty: 90 RF: 3 ascorbic acid (vitamin C) 1,000 mg Tablet 1 g PO BID RF: 0 cyanocobalamin (vitamin B-12) 2,500 mcg Tablet 2,500 mcg PO QAM RF: 0 metoprolol tartrate 50 mg tablet 75 mg PO BID RF: 0 [place] 160 mcg/actuation HFA aerosol inhaler 1 - 2 puff inhalation QAM RF: 0 calcium carbonate-vitamin D3 500 mg(1,250mg) -125 unit Tablet 1 tab PO BID RF: 0 Changed furosemide [Lasix] 20 mg tablet 20 mg PO DAILY Qty: 0 RF: 0 Discontinued Ozempic 0.25 mg or 0.5 mg(2 mg/1.5 mL) pen injector 0.5 mg subcut .COMPLEX Qty: 1.5 RF: 5 nystatin 100,000 unit/mL suspension 500,000 unit buccal QID 10 Days Qty: 200 RF: 11 metformin 500 mg tablet extended release 24hr 1,000 mg PO BID Qty: 360 RF: 3 spironolactone 100 mg tablet 50 mg PO BID Qty: 90 RF: 3 diclofenac sodium 75 mg tablet,delayed release (DR/EC) 75 mg PO BID PRN (Reason: pain) Qty: 60 RF: 1 methylprednisolone [Medrol (Gamaliel)] 4 mg tablets,dose pack See Rx Instructions .ROUTE .COMPLEX Qty: 21 RF: 0 ondansetron HCl 8 mg tablet 8 mg PO Q8H PRN (Reason: nausea and vomiting) Qty: 30 RF: 1 lorazepam 0.5 mg tablet 0.5 mg PO DAILY PRN (Reason: anxiety) Qty: 30 RF: 0 garlic Tablet 1,000 mg PO BID RF: 0 aspirin [Aspirin Low Dose] 81 mg Tablet,Delayed Release (Dr/Ec) 81 mg PO QAM RF: 0 Basaglar KwikPen U-100 Insulin 100 unit/mL (3 mL) insulin pen 65 unit SQ HS RF: 0 docusate sodium 100 mg Capsule 100 mg PO BID Qty: 10 RF: 0 glimepiride 4 mg Tablet 4 mg PO DAILY RF: 0 ibuprofen 200 mg Tablet 200 mg PO DAILY PRN (Reason: Pain) RF: 0 Jardiance 10 mg Tablet 10 mg PO DAILY RF: 0 Discharge Orders: Discharge Order (Routine); Ordered 12/19/20 Ordered By: Errol Barger Admission Data Admit Date/Time: 11/18/20 14:15 Attending Provider: Errol Barger Admit Provider: Ray Zaman Primary Care Provider: Ankita Tony Other Providers: [facility] ; Ray Zaman ; Andriy Cotto Other Interventions: Discharge Summary Assessment (RN) Last Done: 12/19/20 11:05 Coding Level of Care Code D/C DAY MANAGEMENT >30 MINS Diagnoses Acute respiratory failure with hypoxia J96.01 Pneumonia due to 2019 novel coronavirus U07.1; J12.82 Asthma J45.909 UTI (urinary tract infection) N39.0 Right lower quadrant abdominal pain R10.31 Acute kidney injury N17.9 Acute blood loss anemia D62 Constipation K59.00 Type 2 diabetes mellitus with insulin therapy E11.9; Z79.4 Morbid obesity E66.01 Hypertension I10 GERD (gastroesophageal reflux disease) K21.9 Atrial flutter, paroxysmal I48.92 DVT prophylaxis Z29.9
== END 2020-12-19 14:19 | DRG 177 ==
LOC: ED 12:01 → 2E 14:15 → SUATTDRO 14:15 → 2E 16:00 → 3E 12-07 17:52
DX: J45.901 Unspecified asthma with (acute) exacerbation; T45.515A Adverse effect of anticoagulants, initial encounter; F41.9 Anxiety disorder, unspecified; T83.511A Infection and inflammatory reaction due to indwelling urethral catheter, initial encounter; Z68.38 Body mass index [BMI] 38.0-38.9, adult; T38.0X5A Adverse effect of glucocorticoids and synthetic analogues, initial encounter; R49.0 Dysphonia; E87.1 Hypo-osmolality and hyponatremia; N17.9 Acute kidney failure, unspecified; T50.1X5A Adverse effect of loop [high-ceiling] diuretics, initial encounter; Y92.239 Unspecified place in hospital as the place of occurrence of the external cause; I13.0 Hypertensive heart and chronic kidney disease with heart failure and stage 1 through stage 4 chronic kidney disease, or unspecified chronic kidney disease; G47.33 Obstructive sleep apnea (adult) (pediatric); B37.0 Candidal stomatitis; D72.829 Elevated white blood cell count, unspecified; U07.1 COVID-19; N18.2 Chronic kidney disease, stage 2 (mild); K66.1 Hemoperitoneum; E11.22 Type 2 diabetes mellitus with diabetic chronic kidney disease; Z88.5 Allergy status to narcotic agent; J32.9 Chronic sinusitis, unspecified; M79.81 Nontraumatic hematoma of soft tissue; Z88.2 Allergy status to sulfonamides; B96.4 Proteus (mirabilis) (morganii) as the cause of diseases classified elsewhere; E66.01 Morbid (severe) obesity due to excess calories; Z82.49 Family history of ischemic heart disease and other diseases of the circulatory system; Z88.0 Allergy status to penicillin; F32.9 Major depressive disorder, single episode, unspecified; N39.0 Urinary tract infection, site not specified; Z51.81 Encounter for therapeutic drug level monitoring; Z79.899 Other long term (current) drug therapy; Z88.8 Allergy status to other drugs, medicaments and biological substances; J12.82 Pneumonia due to coronavirus disease 2019; G43.909 Migraine, unspecified, not intractable, without status migrainosus; Z79.4 Long term (current) use of insulin; K21.9 Gastro-esophageal reflux disease without esophagitis; J96.01 Acute respiratory failure with hypoxia; B96.1 Klebsiella pneumoniae [K. pneumoniae] as the cause of diseases classified elsewhere; D62 Acute posthemorrhagic anemia; Z88.1 Allergy status to other antibiotic agents; Z91.040 Latex allergy status; Z79.82 Long term (current) use of aspirin; I48.92 Unspecified atrial flutter; R53.83 Other fatigue; Z79.84 Long term (current) use of oral hypoglycemic drugs; Y84.6 Urinary catheterization as the cause of abnormal reaction of the patient, or of later complication, without mention of misadventure at the time of the procedure; K59.00 Constipation, unspecified; I50.31 Acute diastolic (congestive) heart failure

== ENCOUNTER 2022-07-31 14:36 | Inpatient (IN) ==
[2022-07-31 16:15] LABS: Basophils # (auto) 0.04 K/uL (0-0.2); Basophils % (auto) 0.4 %; Eosinophils # (auto) 0.41 K/uL (0-0.50); Eosinophils % (auto) 3.6 %; Hematocrit (blood only) 43.5 % (37.0-47.0); Hemoglobin 13.9 g/dl (12.0-16.0); Immature Granulocytes # (auto) 0.08 K/uL (0.01-0.20); Immature Granulocytes % (auto) 0.7 %; Lymphocytes # (auto) 1.86 K/uL (1.2-3.4); Lymphocytes % (auto) 16.3 %; Mean Corpuscular Hemoglobin 28.2 pg (25.0-34.0); Mean Corpuscular Volume 88.2 fL (80.0-100.0); Mean Platelet Volume 8.9 fL (9.4-12.4); Monocytes # (auto) 0.89 K/uL (0.11-0.59); Monocytes % (auto) 7.8 %; Neutrophils # (auto) 8.11 K/uL (1.40-6.50); Neutrophils % (auto) 71.2 %; Platelet Count 278 K/uL (130-400); RDW Coefficient of Variation 17.1 % (11.5-14.5); RDW Standard Deviation 55.5 fL (36.4-46.3); Red Blood Count 4.93 M/uL (4.20-5.40); White Blood Count 11.39 K/ul (4.8-10.8)
[2022-07-31] MEDS ORDERED: ONDANSETRON INJ 2 MG/ML 2 ML VIAL IV STA (16:28)
[2022-07-31] MEDS ORDERED: SODIUM CHLORIDE 0.9% 1000ML 1,000 ML IV ONE (16:28)
[2022-07-31] MEDS ORDERED: cefTRIAXone SODIUM 2,000 MG/70 ML BAG IV STA (16:28)
[2022-07-31 16:30] LABS: Albumin Globulin Ratio 1.2 (0.9-2); Albumin Level 4.3 gm/dl (3.4-5.0); BUN Creatinine Ratio 13.3 (10-20); Bilirubin,Total 0.3 mg/dl (0.2-1.0); Creatinine Clr Calc Pharmacy 93.1 ml/min; Est GFR (African American) 83.4 ml/min; Globulin 3.5 gm/dl (2.5-4.0); Potassium 4.2 mmol/L (3.5-5.1); Total Protein 7.8 gm/dl (6.0-8.3)
--- NOTE | 2022-07-31 16:32 | Emergency Department Note ---
Impression & Plan Cellulitis and abscess of face, Abscess, dental ED Provider Note NAME: KAREEM QUINTERO AGE: 56 SEX: F : 1965 ARRIVES VIA: Walk-In INFORMANT: Patient, ED PROVIDER(S): Acosta Correa DO CHIEF COMPLAINT: Facial swelling HPI: The patient is a 56-year-old female who is a history diabetes who presented to the emergency department for an evaluation of facial swelling. Patient states that she had dental procedure recently. She started noticing left-sided facial swelling and left facial droop over the course the last few days. She wa s started on Zithromax on Friday for presumed infection. She was seen by her primary care physician today and sent to the emergency department for further evaluation. ROS: See above HPI for pertinent positives & negatives. A total of 10 systems reviewed and were otherwise negative. PAST MEDICAL HISTORY: See Below PAST SURGICAL HISTORY: See Below FAMILY HISTORY: See Below SOCIAL HISTORY: See Below HOME MEDICATIONS: See Below ALLERGIES: See Below VITALS: See Below PHYSICAL EXAMINATION: GENERAL: Patient is awake alert in no acute distress patient is resting comfortably and showing no signs of anxiety EYES: The conjunctivae are clear. The pupils are round and reactive. EARS, NOSE, MOUTH AND THROAT: The nose is without any evidence of any deformity. There is significant swelling of the buccal mucosa. Patient has trismus. There is tenderness over the anterior and left lateral soft tissues of the neck. NECK: The neck is nontender and supple. RESPIRATORY: Normal respiratory effort is noted there is no evidence of wheezing rhonchi or rales CARDIOVASCULAR: Regular rate and rhythm noted there no murmurs rubs or gallops normal S1 normal S2. GASTROINTESTINAL: The abdomen is soft. Abdomen is nontender. MUSCULOSKELETAL/EXTREMITIES: There is no evidence of gross deformity full range of motion is noted in the hips and shoulders. SKIN: There is no obvious evidence of any rash. There are no petechiae, pallor or cyanosis noted. NEUROLOGIC: Patient is awake alert and oriented x3. There is a left facial droop involving the corner of the mouth. Forehead is spared MEDICAL DECISION MAKING: The patient is a 56-year-old female who presented to the emergency department with left facial swelling. The patient had recent dental work and developed an infection afterwards. She was started on an antibiotic by her dentist. The patient's symptoms are worsening. She presented to the emergency department at the request of her dentist as well as her primary care physician. The patient was treated with IV pain medication as well as IV antibiotics. The patient was reevaluated multiple times. I discussed the patient's laboratory and radiographic studies with her. I discussed her condition with the on-call oral maxillofacial surgeon. I also discussed her condition with the on-call [facility] hospitalist. Triage Nursing notes reviewed. Prior medical records reviewed Vital Signs: reviewed and remarkable for no significant abnormalities Differential diagnosis: Dental caries, dental abscess, Ludwigs angina, Vincent angina, dental fracture, facial cellulitis, parotitis, osteomyelitis, sinus infection, peritonsillar abscess. ER treatment provided: See below Diagnostics interpreted by me: ECG: none Cardiac Monitoring: An order was placed for continuous cardiac monitoring. The monitor shows a rate of 93 bpm with sinus rhythm. Laboratory studies: As stated above and show below. Imaging studies: See below. Radiographic imaging was reviewed by myself Consultation(s): I discussed this case with Dr. Maria who is on-call for oromaxillofacial. I discussed this case with Dr. Roman who [facility] Past Med/Surg History Medical History Anxiety and depression Asthma inhalers daily Atrial flutter, paroxysmal Follows with Dr Sherry Begum History of- no recurrence per cardio Chronic sinusitis Post nasal drip and cough since having Covid in 2020 Dyspnea on exertion Fatty liver GERD (gastroesophageal reflux disease) History of blood transfusion During 2020 admission (retroperitoneal hematoma) History of COVID-19 Dx 11/18/20 > hospitalized at [facility] until 01/02/21, d/c to [facility] health > residual ANDERSEN and dependence on supplemental oxygen 2L O2 Hypercholesterolemia Hypertension Pt stated her blood pressure is "usually normal, Metoprolol for her atrial flutter only" Hyperuricosuria Kidney stones Hx Migraine headache Obesity BMI 41.1 On home oxygen therapy 2 lpm continuous Proteinuria Recurrent UTI Retroperitoneal hematoma During 2020 admission for Covid Type 2 diabetes mellitus with insulin therapy Surgical History H/O oral surgery 07/2022 History of cardioversion 2009, [facility] History of colonoscopy History of cystoscopy Multiple--last 02/14/22 @ [facility] History of lithotripsy 09/03/2019: LMA#4. No issues per anesthesia postop progress note. History of myringotomy History of renal stent History of tonsillectomy and adenoidectomy History of transesophageal echocardiography (ADSIA) S/P section X 1 S/P hernia surgery X 2 S/P ureteral stent placement Cystoscopy Retrograde Pyelogram, Ureteral Stent (05/10/21): MAC at [facility] S/P wisdom tooth extraction Family History Aunt Colorectal cancer Grandfather (Maternal) Prostate cancer Mother , age 55 of Pseudomonas sepsis Lupus Raynaud's disease Father , age 85 Clotting disorder Hypertension Peptic ulcer disease Other No family history of adverse response to anesthesia Denies family history of Ovarian cancer Myocardial infarction Breast cancer Social History Smoking Status: Never smoker Second Hand Exposure: Yes ( smokes-not in home); Do You Dip or Chew Tobacco: No; Hx Alcohol Use: No Hx Substance Use: No Preferred Language: Kyrgyz Communication Ability: Effective Visual Impairment: No Limitations Hearing Ability: Normal Weed Burner Required: No Beliefs That Will Affect Care: None marital status: Current Living Situation: Spouse and Family Current Living Situation Comment: AND SON current occupational status: employed 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, 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 Feels Safe at Home: Yes Childhood Exposure to Second-Hand Smoke: No Diet: other Diet Comment: low sugar Dental Care, Regularly: Yes Physical Activity Frequency: Does not Exercise Seatbelt Use: always Sunscreen Use: No Assistive Devices: Glasses and Oxygen - Continuous Allergies Allergies Allergy/AdvReac Type Severity Reaction Status Date / Time codeine Allergy Intermediate Severe Verified 07/31/22 11:02 [From Tylenol-Codeine #3] migraines fluconazole [From Diflucan] Allergy Intermediate Diffuse Verified 07/31/22 11:02 hives, itchy latex Allergy Intermediate Lip Verified 07/31/22 11:02 swelling pravastatin Allergy Intermediate Hives Verified 07/31/22 11:02 simvastatin Allergy Intermediate Hives Verified 07/31/22 11:02 doxycycline Allergy Mild Rash Verified 07/31/22 11:02 erythromycin base Allergy Mild Rash Verified 07/31/22 11:02 prednisone Allergy Mild Rash Verified 07/31/22 11:02 empagliflozin AdvReac Mild Yeast Verified 07/31/22 11:02 [From Jardiance] infection, worsening mood hydrocodone AdvReac Mild Severe Verified 07/31/22 11:02 headache Penicillins AdvReac Mild Rash Verified 07/31/22 11:02 Home Meds Home Medications Medication Instructions Recorded Confirmed cyanocobalamin (vitamin B-12) 2,500 mcg PO QAM 08/30/19 07/31/22 2,500 mcg tablet potassium 99 mg tablet 99 mg PO BID 03/07/21 07/31/22 guaifenesin 600 mg tablet, 600 mg PO BID 08/01/21 07/31/22 extended release 12 hr (Mucinex) aspirin 81 mg tablet,delayed 81 mg PO BID 10/31/21 07/31/22 release benzonatate 200 mg capsule 200 mg PO TID PRN Cough 10/31/21 07/31/22 ibuprofen 200 mg capsule 400 mg PO Q6H PRN Pain 11/08/21 07/31/22 azelastine 205.5 mcg (0.15 %) 2 spray intranasal QAM 01/28/22 07/31/22 nasal spray loratadine 10 mg chewable tablet 10 mg PO HS 02/07/22 07/31/22 (Claritin) montelukast 10 mg tablet 10 mg PO HS 02/07/22 07/31/22 (Singulair) bupropion HCl 200 mg tablet,12 hr 200 mg PO BID 02/14/22 07/31/22 sustained-release (Wellbutrin SR) ascorbic acid (vitamin C) 1,000 mg 1 g PO DAILY 03/27/22 07/31/22 tablet insulin detemir U-100 100 unit/mL 75 - 100 unit subcut QPM 05/16/22 07/31/22 (3 mL) subcutaneous pen (Levemir FlexTouch U-100 Insulin) blood sugar diagnostic (Accu-Chek 06/05/22 07/31/22 Guide test strips) azithromycin 250 mg tablet See Rx Instructions .Route .COMPLEX 07/31/22 07/31/22 tamsulosin 0.4 mg capsule 0.4 mg PO HS PRN Stent replacement 07/31/22 07/31/22 surgery Previous Rx's Medication Instructions Recorded Oxygen Home #1 ea 12/19/20 metformin 500 mg tablet 1,000 mg PO BID #360 tabs 09/17/21 ondansetron HCl 8 mg tablet 8 mg PO Q8H PRN nausea and 10/24/21 vomiting #30 tabs ciclesonide 160 mcg/actuation 1 puff inhalation BID #6.1 grams 01/14/22 aerosol inhaler (Alvesco) phenazopyridine 200 mg tablet 200 mg PO Q8H PRN pain #10 tabs 02/14/22 (Pyridium) blood sugar diagnostic (OneTouch #150 ea 02/21/22 Verio test strips) blood-glucose meter (OneTouch #1 ea 02/21/22 Verio IQ Meter kit) lancets 33 gauge (OneTouch Delica #200 ea 02/21/22 Lancets) levalbuterol tartrate 45 2 inh inhalation BID #15 grams 03/01/22 mcg/actuation aerosol inhaler (Xopenex HFA) lorazepam 0.5 mg tablet 0.5 mg PO Q6H PRN anxiety #30 tabs 03/10/22 diclofenac sodium 1 % topical gel 4 g topical BID PRN Pain #100 grams 03/11/22 (Voltaren Arthritis Pain) furosemide 20 mg tablet 20 mg PO QAM #90 tabs 03/11/22 metoprolol tartrate 50 mg tablet 75 mg PO BID #270 tabs 03/11/22 spironolactone 100 mg tablet 50 mg PO BID #90 tabs 03/11/22 (Aldactone) nystatin 100,000 unit/mL oral 5 ml PO QID PRN thrush #200 mL 04/08/22 suspension pen needle, diabetic 31 gauge x #100 ea 04/19/2205/02" (BD Ultra-Fine Mini Pen Needle) celecoxib 200 mg capsule (Celebrex) 200 mg PO BID #60 caps 05/06/22 sumatriptan succinate 100 mg 100 mg PO UD PRN Migraine Headache 06/06/22 tablet (Imitrex) #10 tabs omeprazole 20 mg capsule,delayed 20 mg PO BID #60 caps 06/24/22 release semaglutide 2 mg/dose (8 mg/3 mL) 2 mg (0.75 mL) subcut Q7D #9 mL 07/09/22 subcutaneous pen injector Results & Data (ED) Vital Signs Vital Signs - 24 hr 07/31/22 14:44 07/31/22 16:52 07/31/22 17:18 Temperature 36.9 C Temperature Source Temporal Artery Scan Pulse Rate 104 H 91 H Pulse Rate [Apical] Pulse Rate [Finger] 94 H Respiratory Rate 20 18 Respiratory Effort / Characteristics Non-Labored Non-Labored Spontaneous Respiratory Depth Normal Normal Blood Pressure 118/78 Blood Pressure [Right Arm] 108/83 Blood Pressure Mean 91 Blood Pressure Mean [Right Arm] 91 Blood Pressure Position [Right Arm] Pulse Oximetry 96 93 Oxygen Delivery Method Room Air Room Air Sepsis Recent Fever Within 48 Hours No Sepsis New/Unexplained Change in Mental Status No Sepsis Action Taken by Nursing No Action Required 07/31/22 20:00 Temperature Temperature Source Pulse Rate Pulse Rate [Apical] 93 H Pulse Rate [Finger] Respiratory Rate 20 Respiratory Effort / Characteristics Respiratory Depth Blood Pressure Blood Pressure [Right Arm] 116/64 Blood Pressure Mean Blood Pressure Mean [Right Arm] 81 Blood Pressure Position [Right Arm] Sitting Pulse Oximetry 96 Oxygen Delivery Method Room Air Sepsis Recent Fever Within 48 Hours Sepsis New/Unexplained Change in Mental Status Sepsis Action Taken by [facility] Medications Current Medication List: was personally reviewed by me Laboratory Data Attestation: I reviewed the patient's lab results. 07/31/22 15:46 07/31/22 15:46 Lab Results 07/31/22 07/31/22 07/31/22 Range/Units 15:46 15:46 20:00 WBC 11.39 H (4.8-10.8) K/ul RBC 4.93 (4.20-5.40) M/uL Hgb 13.9 (12.0-16.0) g/dl Hct 43.5 (37.0-47.0) % MCV 88.2 (80.0-100.0) fL MCH 28.2 (25.0-34.0) pg MCHC 32.0 (32.0-36.0) g/dL RDW Std Deviation 55.5 H (36.4-46.3) fL RDW Coeff of Sheridan 17.1 H (11.5-14.5) % Plt Count 278 (130-400) K/uL MPV 8.9 L (9.4-12.4) fL Immature Gran % (Auto) 0.7 % Neut % (Auto) 71.2 % Lymph % (Auto) 16.3 % Coleman % (Auto) 7.8 % Eos % (Auto) 3.6 % Baso % (Auto) 0.4 % Neut # (Auto) 8.11 H (1.40-6.50) K/uL Lymph # (Auto) 1.86 (1.2-3.4) K/uL Coleman # (Auto) 0.89 H (0.11-0.59) K/uL Eos # (Auto) 0.41 (0-0.50) K/uL Baso # (Auto) 0.04 (0-0.2) K/uL Immature Gran # (Auto) 0.08 (0.01-0.20) K/uL Sodium 138 (136-145) mmol/L Potassium 4.2 (3.5-5.1) mmol/L Chloride 103 (98-107) mmol/L Carbon Dioxide 25 (21-32) mmol/L Anion Gap 10 (3-11) BUN 12 (6-23) mg/dl Creatinine 0.90 (0.6-1.2) mg/dl Est Cr Clr Drug Dosing 93.1 ml/min Est GFR ( Amer) 83.4 ml/min Est GFR (Non-Af Amer) 72.0 ml/min BUN/Creatinine Ratio 13.3 (10-20) Glucose 150 H (70-99(Fasting)) mg/dl Calcium 10.0 (8.6-10.3) mg/dl Total Bilirubin 0.3 (0.2-1.0) mg/dl AST 27 (13-39) U/L ALT 37 (7-52) U/L Alkaline Phosphatase 104 (34-104) U/L Total Protein 7.8 (6.0-8.3) gm/dl Albumin 4.3 (3.4-5.0) gm/dl Globulin 3.5 (2.5-4.0) gm/dl Albumin/Globulin Ratio 1.2 (0.9-2) SARS-CoV-2, RNA, NAAT NEGATIVE (NEGATIVE) Administered Medications Fentanyl Citrate (Fentanyl Citrate Pf 100 Mcg/2 Ml Vial) 50 mcg IV Q15M PRN PRN Reason: Pain Stop: 08/14/22 16:27 Last Admin: 07/31/22 18:25 Dose: 50 mcg Documented By: Admin: 07/31/22 16:56 Dose: 50 mcg Documented By: BERNIE Discontinued Medications Sodium Chloride (Nss 1000ml) 1,000 mls @ 999 mls/hr IV .Q1H1M ONE Stop: 07/31/22 17:28 Last Infusion: 07/31/22 19:26 Dose: 0 mls/hr Documented By: Admin: 07/31/22 17:16 Dose: 999 mls/hr Documented By: BERNIE Ceftriaxone Sodium (Rocephin) 2,000 mg in 70 mls @ 140 mls/hr IV NOW STA Stop: 07/31/22 16:57 Last Infusion: 07/31/22 18:22 Dose: 0 mls/hr Documented By: Admin: 07/31/22 17:16 Dose: 140 mls/hr Documented By: BERNIE Metronidazole (Flagyl) 500 mg in 100 mls @ 100 mls/hr IV NOW STA Stop: 07/31/22 18:26 Last Infusion: 07/31/22 20:24 Dose: 0 mls/hr Documented By: Admin: 07/31/22 18:51 Dose: 100 mls/hr Documented By: AG Ioversol (Optiray 320 500ml) 90 ml IV ONCE ONE Stop: 07/31/22 17:05 Last Admin: 07/31/22 17:04 Dose: 90 ml Documented By: ASHWIN Morphine Sulfate (Morphine Sulfate 4 Mg/Ml 1 Ml Carp\\Vial) 4 mg IV NOW STA Stop: 07/31/22 18:58 Last Admin: 07/31/22 19:23 Dose: 4 mg Documented By: QGV Ondansetron HCl (Ondansetron Inj 2 Mg/Ml 2 Ml Vial) 4 mg IV NOW STA Stop: 07/31/22 16:29 Last Admin: 07/31/22 16:56 Dose: 4 mg Documented By: BERNIE Imaging Data Attestation: I personally reviewed and interpreted this imaging study as follows: My Impression: CT of the head was obtained in the emergency department. My interpretation is no intracranial hemorrhage or mass effect, final report below. Radiologist's Impression: Soft Tissue Neck CT 07/31/22 16:28 CT OF THE NECK WITH IV CONTRAST CLINICAL HISTORY: Left facial swelling. COMPARISON STUDY: No previous studies for comparison. TECHNIQUE: Following IV administration of 90 mL of Optiray, helical axial images of the neck were obtained. Sagittal and coronal reconstructions were viewed. Automated exposure control was utilized for the study. A dose lowering technique was utilized adhering to the principles of ALARA. FINDINGS: Visualized portions of the intracranial contents are unremarkable. The parotid and submandibular glands are unremarkable. Multiple mildly enlarged left cervical lymph nodes are noted. Index left level 1 node on image 169 of 405 measures 1.4 x 0.9 cm. Multiple dental amalgams are present. Streak artifact from the amalgams make evaluation of the adjacent soft tissues difficult. Several teeth are absent. There is a 1.9 x 1.3 cm left facial rim-enhancing fluid collection on axial image 106. This is lateral to the inferior aspect of the left maxilla. This favors an abscess. No additional fluid collections are present. There is no soft tissue gas. There is mild adjacent stranding, including asymmetric thickening of the left aspect of the platysma. Mild groundglass opacities within the visualized lung apices are noted. The findings could reflect scarring given findings on chest CT of December 08, 2020. Major vasculature of the neck is grossly patent. Epiglottis is normal. IMPRESSION: 1. 1.9 x 1.3 cm rim-enhancing left facial fluid collection along the lateral aspect of the left maxilla. This favors a small abscess. This is odontogenic although definitive source is not identified on this exam. Associated left facial stranding and thickening of the left aspect of the platysma. 2. Mildly enlarged left cervical lymph nodes which are likely reactive. ACT 112: Negative or not required by law. Electronically signed by: Edson Alan M.D. 07/31/2022 6:[address] 07/31/22 16:32 CT head/brain wo con CLINICAL HISTORY: left facial droop Technique: Contiguous axial CT images of the head were acquired from the base of the skull to the vertex without intravenous contrast administration. Images were viewed in brain, subdural and bone windows. Automated dose lowering techniques and/or adjustment according to patient size were utilized for this exam. Comparison: Comparison is made to CT head 1021 Findings: The ventricles, basal cisterns, and cerebral sulci are normal. There is no acute intracranial hemorrhage or evidence of acute territorial infarction. Neither mass effect, shift of the midline structures, nor abnormal extra-axial fluid collections are shown. There is a air-fluid level in the left sphenoid sinus. The orbits appear normal. There are no acute fractures of the calvaria or scalp swelling. Impression: No acute intracranial hemorrhage, no evidence of acute territorial infarction or other acute intracranial disease process. Mild sphenoid sinus disease. ACT 112: Negative or not required by law. Electronically signed by: Jose Daniel Beckford M.D. 07/31/2022 5:37 PM Discharge Plan Visit Data Chief Complaint: Dental/Oral Stated Complaint: DROOPING ON LT FACE, DENTAL ISSUE, REF BY DOC ED Provider: Acosta Correa Discharge Problem: Cellulitis and abscess of face, Abscess, dental Patient Disposition: Admitted As Inpatient Discharge Instructions Interventions: ED Discharge Assessment Last Done: 07/31/22 21:12 Forms Stand Alone Forms: [employer] [facility] [employer] Prescriptions Prescriptions: No Action (DME) OneTouch Verio test strips Strip See Rx Instructions .Route Qty: 150 11RF Rx Instructions: test blood sugar 4 x daily (DME) blood-glucose meter [OneTouch Verio IQ Meter] Kit See Rx Instructions .Route Qty: 1 0RF Rx Instructions: As directed (DME) lancets [OneTouch Delica Lancets] 33 gauge misc See Rx Instructions .Route Qty: 200 11RF Rx Instructions: test blood sugar 4 x daily levalbuterol tartrate [Xopenex HFA] 45 mcg/actuation HFA aerosol inhaler 2 inh INH BID Qty: 15 11RF Rx Instructions: APPROVED GOOD 02/17/22-02/28/23 lorazepam 0.5 mg tablet 0.5 mg PO Q6H PRN (Reason: anxiety) Qty: 30 0RF diclofenac sodium [Voltaren Arthritis Pain] 1 % gel 4 g topical BID PRN (Reason: Pain) Qty: 100 1RF nystatin 100,000 unit/mL suspension 5 ml PO QID PRN (Reason: thrush) Qty: 200 6RF Rx Instructions: swish and swallow (DME) pen needle, diabetic [BD Ultra-Fine Mini Pen Needle] 31 gauge x 3/16" needle See Dose Instructions .ROUTE .MEDSUPPLY Qty: 100 3RF Dose Instruction: As directed Rx Instructions: As directed one daily celecoxib [Celebrex] 200 mg capsule 200 mg PO BID Qty: 60 5RF sumatriptan succinate [Imitrex] 100 mg tablet 100 mg PO UD PRN (Reason: Migraine Headache) Qty: 10 5RF Rx Instructions: take 1 tab at onset of headache; if no relief may repeat 1 tab in 2hr; max = 2 tabs/24 hrs PO omeprazole 20 mg capsule,delayed release(DR/EC) 20 mg PO BID Qty: 60 5RF Ozempic 2 mg/dose (8 mg/3 mL) pen injector 2 mg subcut Q7D Qty: 9 3RF Patient Comments: takes on saturdays Rx Instructions: Saturdays (DME) Accu-Chek Guide test strips Strip See Rx Instructions .Route Rx Instructions: test 2 times daily ondansetron HCl 8 mg tablet 8 mg PO Q8H PRN (Reason: nausea and vomiting) Qty: 30 1RF Alvesco 160 mcg/actuation HFA aerosol inhaler 1 puff INHALATION BID Qty: 6.1 11RF azithromycin 250 mg tablet See Rx Instructions .ROUTE .COMPLEX Rx Instructions: Z-pack dispensed to pt on 07/29/22, End date 08/02/22 azelastine 205.5 mcg (0.15 %) spray,non-aerosol 2 spray intranasal QAM Rx Instructions: administer into each nostril metformin 500 mg tablet 1,000 mg PO BID Qty: 360 3RF metoprolol tartrate 50 mg tablet 75 mg PO BID Qty: 270 3RF spironolactone [Aldactone] 100 mg tablet 50 mg PO BID Qty: 90 3RF furosemide 20 mg tablet 20 mg PO QAM Qty: 90 3RF ascorbic acid (vitamin C) 1,000 mg tablet 1 g PO DAILY cyanocobalamin (vitamin B-12) 2,500 mcg Tablet 2,500 mcg PO QAM potassium 99 mg Tablet 99 mg PO BID Patient Comments: OTC aspirin 81 mg Tablet,Delayed Release (Dr/Ec) 81 mg PO BID benzonatate 200 mg capsule 200 mg PO TID PRN (Reason: Cough) Rx Instructions: as needed for cough ibuprofen 200 mg Capsule 400 mg PO Q6H PRN (Reason: Pain) Levemir FlexTouch U100 Insulin 100 unit/mL (3 mL) insulin pen 75 - 100 unit subcut QPM Rx Instructions: If Blood Glucose level is higher than 200 pt will inject additional units but doesn't exceed 100 (DME) Oxygen Home Liters Per Minute See Rx Instructions .Route Qty: 1 0RF Rx Instructions: As directed currently 3.5 L nc continuous guaifenesin [Mucinex] 600 mg tablet extended release 12hr 600 mg PO BID montelukast [Singulair] 10 mg tablet 10 mg PO HS Claritin 10 mg Tablet,Chewable 10 mg PO HS bupropion HCl [Wellbutrin SR] 200 mg tablet sustained-release 12 hr 200 mg PO BID phenazopyridine [Pyridium] 200 mg tablet 200 mg PO Q8H PRN (Reason: pain) Qty: 10 0RF tamsulosin 0.4 mg capsule 0.4 mg PO HS PRN (Reason: Stent replacement surgery) Referrals Referrals: Ankita Tony MD [Primary Care Provider] -
[2022-07-31] MEDS: fentaNYL citrate PF 100 MCG/2 ML VIAL IV PRN ×2 (16:56→18:25)
[2022-07-31] MEDS ORDERED: OPTIRAY 320 500ml IV ONE (17:04)
[2022-07-31] MEDS ORDERED: metroNIDAZOLE 500 MG/100 ML BAG IV STA (17:27)
--- NOTE | 2022-07-31 17:38 | CT Scan Report ---
CT head/brain wo con CLINICAL HISTORY: left facial droop Technique: Contiguous axial CT images of the head were acquired from the base of the skull to the abdoulaye nichol without intravenous contrast administration. Images were viewed in brain, subdural and bone [facility] Automated dose lowering techniques and/or adjustment according to patient size were utilized for this exam. Comparison: Comparison is made to CT head 1021 Findings: The ventricles, basal cisterns, and cerebral sulci are normal. There is no acute intracranial hemorrh age or evidence of acute territorial infarction. Neither mass effect, shift of the midline structures , nor abnormal extra-axial fluid collections are shown. There is a air-fluid level in the left sphenoid sinus. The orbits appear normal. There are no acute fractures of the calvaria or scalp swelling. Impression: No acute intracranial hemorrhage, no evidence of acute territorial infarction or other acute intracra nial disease process. Mild sphenoid sinus disease. ACT 112: Negative or not required by law. Electronically signed by: Jose Daniel Beckford M.D. 07/31/2022 5:37 PM
--- NOTE | 2022-07-31 18:07 | CT Scan Report ---
CT OF THE NECK WITH IV CONTRAST CLINICAL HISTORY: Left facial swelling. COMPARISON STUDY: No previous studies for comparison. TECHNIQUE: Following IV administration of 90 mL of Optiray, helical axial images of the neck were ob tained. Sagittal and coronal reconstructions were viewed. Automated exposure control was utilized f or the study. A dose lowering technique was utilized adhering to the principles of ALARA. FINDINGS: Visualized portions of the intracranial contents are unremarkable. The parotid and submand ibular glands are unremarkable. Multiple mildly enlarged left cervical lymph nodes are noted. Index l eft level 1 node on image 169 of 405 measures 1.4 x 0.9 cm. Multiple dental amalgams are present. Str eak artifact from the amalgams make evaluation of the adjacent soft tissues difficult. Several teeth are absent. There is a 1.9 x 1.3 cm left facial rim-enhancing fluid collection on axial image 106. Th is is lateral to the inferior aspect of the left maxilla. This favors an abscess. No additional fluid collections are present. There is no soft tissue gas. There is mild adjacent stranding, including as ymmetric thickening of the left aspect of the platysma. Mild groundglass opacities within the visuali zed lung apices are noted. The findings could reflect scarring given findings on chest CT of December 08, 2020. Major vasculature of the neck is grossly patent. Epiglottis is normal. IMPRESSION: 1. 1.9 x 1.3 cm rim-enhancing left facial fluid collection along the lateral aspect of the left maxil la. This favors a small abscess. This is odontogenic although definitive source is not identified on this exam. Associated left facial stranding and thickening of the left aspect of the platysma. 2. Mildly enlarged left cervical lymph nodes which are likely reactive. ACT 112: Negative or not required by law. Electronically signed by: Edson Alan M.D. 07/31/2022 6:04 PM
[2022-07-31] MEDS ORDERED: MoRPHine SULFATE 4 MG/ML 1 ML CARP\\VIAL IV STA (18:57)
--- NOTE | 2022-07-31 19:57 | History & Physical Report ---
Date of Service July 31, 2022 Assessment & Plan (1) Abscess, dental: Plan: 56yo female with recent root canal performed on left wisdom tooth presenting with pain, swelling and redness of the left face. Found to have a 1.9 x 1.3cm rim-enhancing collection of the left face along the lateral aspect of the maxilla suggestive of a small abscess. Patient is afebrile, HD stable and non-toxic in appearance. She is in considerable discomfort. -Admit to medical -Follow cultures sent from ER -Continue antibiotics - Ceftriaxone and Flagyl -Tylenol and Morphine as needed for pain -Warm compresses for comfort -OMFS consultation appreciated -Will keep patient NPO after midnight for possible OR drainage in AM (2) Type 2 diabetes mellitus with insulin therapy: Plan: Patient with well controlled DM. Last HgbA1C on 01/17/22 = 5.3. She follows with [facility], last seen 06/01/22. She is currently on Ozempic, Metformin and basal insulin - Levimir 60-75u daily. Blood sugar presently 150 -Will hold Metformin and Ozempic while inpatient -Lantus 10u BID with ISS - goal blood sugar 110 - 140 -Glylcemic management consultation appreciated (3) Hypertension: Plan: Chronic. Stable. Mildly elevated -Pain control -Continue Spironolactone -Monitor (4) GERD (gastroesophageal reflux disease): Plan: Chronic. Stable -Protonix 40mg po daily while inpatient (5) Kidney stones: Plan: Patient with renal stents in place. Last exchanged in May. She is to followup with Urology next week to discuss future plans -Monitor (6) Atrial flutter, paroxysmal: Plan: Remote history of such. -Continue Metoprolol 75mg po BID -No anticoagulation (7) Asthma: Plan: Chronic. No cough, SOB or wheeze reported -Continue home inhalers - Fluticasone, Xopenex -Continue Guaifenesin -Continue Singulair -Monitor F/E/N - Heplock. Electrolytes WNL. NPO after midnight Ppx - SCDs Code - Full per discussion with patient Dispo - Admit to medical History of Present Illness Chief Complaint: Left facial pain Primary Care Provider: Ankita Tony MD Rosalie Mccormack is a pleasant 56-year-old female presenting with left facial pain and swelling. Patient had a root canal performed on the top left wisdom tooth on 07/25/[address] Uriarte. She reports having significant swelling and pain following the procedure. She contacted her dentist on 07/29/22 with these complaints of progressive left facial pain and swelling. She was prescribed a course of Azithromycin which she started on the evening of 07/29/22. Patient reports progressive pain and swelling as well as firmness to her left cheek. She has discomfort in her left neck, cheek, chin and a headache. She has been taking Ibuprofen at home with some relief to her discomfort. She has had some chills and mild nausea, otherwise denies fever, chest pain, cough, SOB, vomiting, diarrhea. Denies stridor or difficulty swallowing. No additional complaints at this time. She is unable to fully open her mouth. In the ER she is afebrile, HD stable. In pain, reported to be 10/10 at present. ER Course: Ceftriaxone 2gm IV Flagyl 500mg IV Fentanyl 50mcg x 2 doses Morphine 4mg IV Zofran 4mg IV NSS x 1L Allergies Allergy/AdvReac Type Severity Reaction Status Date / Time codeine Allergy Intermediate Severe Verified 07/31/22 11:02 [From Tylenol-Codeine #3] migraines fluconazole [From Diflucan] Allergy Intermediate Diffuse Verified 07/31/22 11:02 hives, itchy latex Allergy Intermediate Lip Verified 07/31/22 11:02 swelling pravastatin Allergy Intermediate Hives Verified 07/31/22 11:02 simvastatin Allergy Intermediate Hives Verified 07/31/22 11:02 doxycycline Allergy Mild Rash Verified 07/31/22 11:02 erythromycin base Allergy Mild Rash Verified 07/31/22 11:02 prednisone Allergy Mild Rash Verified 07/31/22 11:02 empagliflozin AdvReac Mild Yeast Verified 07/31/22 11:02 [From Jardiance] infection, worsening mood hydrocodone AdvReac Mild Severe Verified 07/31/22 11:02 headache Penicillins AdvReac Mild Rash Verified 07/31/22 11:02 Home Medications Medication Instructions Recorded Confirmed Type cyanocobalamin (vitamin B-12) 2,500 mcg PO QAM 08/30/19 07/31/22 History 2,500 mcg tablet Oxygen Home #1 ea 12/19/20 07/31/22 Rx potassium 99 mg tablet 99 mg PO BID 03/07/21 07/31/22 History guaifenesin 600 mg tablet, 600 mg PO BID 08/01/21 07/31/22 History extended release 12 hr (Mucinex) metformin 500 mg tablet 1,000 mg PO BID #360 tabs 09/17/21 07/31/22 Rx ondansetron HCl 8 mg tablet 8 mg PO Q8H PRN nausea and 10/24/21 07/31/22 Rx vomiting #30 tabs aspirin 81 mg tablet,delayed 81 mg PO BID 10/31/21 07/31/22 History release benzonatate 200 mg capsule 200 mg PO TID PRN Cough 10/31/21 07/31/22 History ibuprofen 200 mg capsule 400 mg PO Q6H PRN Pain 11/08/21 07/31/22 History ciclesonide 160 mcg/actuation 1 puff inhalation BID #6.1 grams 01/14/22 07/31/22 Rx aerosol inhaler (Alvesco) azelastine 205.5 mcg (0.15 %) 2 spray intranasal QAM 01/28/22 07/31/22 History nasal spray loratadine 10 mg chewable tablet 10 mg PO HS 02/07/22 07/31/22 History (Claritin) montelukast 10 mg tablet 10 mg PO HS 02/07/22 07/31/22 History (Singulair) bupropion HCl 200 mg tablet,12 hr 200 mg PO BID 02/14/22 07/31/22 History sustained-release (Wellbutrin SR) phenazopyridine 200 mg tablet 200 mg PO Q8H PRN pain #10 tabs 02/14/22 07/31/22 Rx (Pyridium) blood sugar diagnostic (Crossing AutomationTouch #150 ea 02/21/22 07/31/22 Rx Verio test strips) blood-glucose meter (Crossing AutomationTouch #1 ea 02/21/22 07/31/22 Rx Verio IQ Meter kit) lancets 33 gauge (OneTouch Delica #200 ea 02/21/22 07/31/22 Rx Lancets) levalbuterol tartrate 45 2 inh inhalation BID #15 grams 03/01/22 07/31/22 Rx mcg/actuation aerosol inhaler (Xopenex HFA) lorazepam 0.5 mg tablet 0.5 mg PO Q6H PRN anxiety #30 tabs 03/10/22 07/31/22 Rx diclofenac sodium 1 % topical gel 4 g topical BID PRN Pain #100 grams 03/11/22 07/31/22 Rx (Voltaren Arthritis Pain) furosemide 20 mg tablet 20 mg PO QAM #90 tabs 03/11/22 07/31/22 Rx metoprolol tartrate 50 mg tablet 75 mg PO BID #270 tabs 03/11/22 07/31/22 Rx spironolactone 100 mg tablet 50 mg PO BID #90 tabs 03/11/22 07/31/22 Rx (Aldactone) ascorbic acid (vitamin C) 1,000 mg 1 g PO DAILY 03/27/22 07/31/22 History tablet nystatin 100,000 unit/mL oral 5 ml PO QID PRN thrush #200 mL 04/08/22 07/31/22 Rx suspension pen needle, diabetic 31 gauge x #100 ea 04/19/22 07/31/22 Rx 3/16" (BD Ultra-Fine Mini Pen Needle) celecoxib 200 mg capsule (Celebrex) 200 mg PO BID #60 caps 05/06/22 07/31/22 Rx insulin detemir U-100 100 unit/mL 75 - 100 unit subcut QPM 05/16/22 07/31/22 History (3 mL) subcutaneous pen (Levemir FlexTouch U-100 Insulin) blood sugar diagnostic (Accu-Chek 06/05/22 07/31/22 History Guide test strips) sumatriptan succinate 100 mg 100 mg PO UD PRN Migraine Headache 06/06/22 07/31/22 Rx tablet (Imitrex) #10 tabs omeprazole 20 mg capsule,delayed 20 mg PO BID #60 caps 06/24/22 07/31/22 Rx release semaglutide 2 mg/dose (8 mg/3 mL) 2 mg (0.75 mL) subcut Q7D #9 mL 07/09/22 07/31/22 Rx subcutaneous pen injector azithromycin 250 mg tablet See Rx Instructions .Route .COMPLEX 07/31/22 07/31/22 History tamsulosin 0.4 mg capsule 0.4 mg PO HS PRN Stent replacement 07/31/22 07/31/22 History surgery Past Med/Surg History Medical History Anxiety and depression Asthma inhalers daily Atrial flutter, paroxysmal Follows with Dr Sherry Begum History of- no recurrence per cardio Chronic sinusitis Post nasal drip and cough since having Covid in 2020 Dyspnea on exertion Fatty liver GERD (gastroesophageal reflux disease) History of blood transfusion During 2020 admission (retroperitoneal hematoma) History of COVID-19 Dx 11/18/20 > hospitalized at [facility] until 01/02/21, d/c to [facility] > residual ANDERSEN and dependence on supplemental oxygen 2L O2 Hypercholesterolemia Hypertension Pt stated her blood pressure is "usually normal, Metoprolol for her atrial flutter only" Hyperuricosuria Kidney stones Hx Migraine headache Obesity BMI 41.1 On home oxygen therapy 2 lpm continuous Proteinuria Recurrent UTI Retroperitoneal hematoma During 2020 admission for Covid Type 2 diabetes mellitus with insulin therapy Surgical History H/O oral surgery 07/2022 History of cardioversion 2009, [facility] History of colonoscopy History of cystoscopy Multiple--last 02/14/22 @ [facility] History of lithotripsy 09/03/2019: LMA#4. No issues per anesthesia postop progress note. History of myringotomy History of renal stent History of tonsillectomy and adenoidectomy History of transesophageal echocardiography (DASIA) S/P section X 1 S/P hernia surgery X 2 S/P ureteral stent placement Cystoscopy Retrograde Pyelogram, Ureteral Stent (05/10/21): MAC at [facility] S/P wisdom tooth extraction Family History Aunt Colorectal cancer Grandfather (Maternal) Prostate cancer Mother , age 55 of Pseudomonas sepsis Lupus Raynaud's disease Father , age 85 Clotting disorder Hypertension Peptic ulcer disease Other No family history of adverse response to anesthesia Denies family history of Ovarian cancer Myocardial infarction Breast cancer Social History Smoking Status: Never smoker Second Hand Exposure: Yes ( smokes-not in home); Do You Dip or Chew Tobacco: No; Hx Alcohol Use: No Hx Substance Use: No Preferred Language: Wolof Communication Ability: Effective Visual Impairment: No Limitations Hearing Ability: Normal Carbide Tool Die Maker Required: No Beliefs That Will Affect Care: None marital status: Current Living Situation: Spouse and Family Current Living Situation Comment: AND SON current occupational status: employed 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, 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 Other Information That Helps Us Care for You: No Feels Safe at Home: Yes Safety Concerns: Feels Safe At This Time Childhood Exposure to Second-Hand Smoke: No Diet: other Diet Comment: low sugar Dental Care, Regularly: Yes Physical Activity Frequency: Does not Exercise Seatbelt Use: always Sunscreen Use: No Assistive Devices: None Review of Systems Review of Systems: All systems reviewed & are unremarkable except as noted in HPI & below Physical Exam Physical Exam: General: patient AA&O x 4, answering questions appropriately, in mild distress secondary to pain Skin: warm, dry, intact, no rashes or lesions HEENT: NC/AT, PERRL, EOMI, anicteric sclera, conjunctiva without injection, external ear normal to inspection and nontender, nares patent, moist mucus membranes, dentition intact, swelling to left face, tender to palpation over left cheek, chin and neck, +trismus, no stridor, Heart: +S1/S2, regular, no m/r/g Lungs: equal air entry bilaterally, no rales/rhonchi/wheezes Abd: +BS, soft, NT/ND, no masses/organomegaly/ascites Ext: warm, 2+ pulses in UE/LE bilaterally, no clubbing/cyanosis or edema Neuro: nonfocal, patient AA&O x 4, speech intact, no facial droop, moving all extremities on command with equal strength 5/5 Results & Data Results & Data Vital Signs (Past 12 Hours) Vital Signs Temp Pulse Pulse Resp BP BP Pulse Ox 07/31/22 17:18 91 H 07/31/22 16:52 94 H 18 108/83 93 07/31/22 14:44 36.9 C 104 H 20 118/78 96 O2 Del Method 07/31/22 17:18 07/31/22 16:52 Room Air 07/31/22 14:44 Room Air Laboratory Results Laboratory Results WBC 11.39 K/ul (4.8-10.8) H 07/31/22 15:46 RBC 4.93 M/uL (4.20-5.40) 07/31/22 15:46 Hgb 13.9 g/dl (12.0-16.0) 07/31/22 15:46 Hct 43.5 % (37.0-47.0) 07/31/22 15:46 MCV 88.2 fL (80.0-100.0) 07/31/22 15:46 MCH 28.2 pg (25.0-34.0) 07/31/22 15:46 MCHC 32.0 g/dL (32.0-36.0) 07/31/22 15:46 RDW Std Deviation 55.5 fL (36.4-46.3) H 07/31/22 15:46 RDW Coeff of Sheridan 17.1 % (11.5-14.5) H 07/31/22 15:46 Plt Count 278 K/uL (130-400) 07/31/22 15:46 MPV 8.9 fL (9.4-12.4) L 07/31/22 15:46 Immature Gran % (Auto) 0.7 % 07/31/22 15:46 Neut % (Auto) 71.2 % 07/31/22 15:46 Lymph % (Auto) 16.3 % 07/31/22 15:46 Kings % (Auto) 7.8 % 07/31/22 15:46 Eos % (Auto) 3.6 % 07/31/22 15:46 Baso % (Auto) 0.4 % 07/31/22 15:46 Neut # (Auto) 8.11 K/uL (1.40-6.50) H 07/31/22 15:46 Lymph # (Auto) 1.86 K/uL (1.2-3.4) 07/31/22 15:46 Kings # (Auto) 0.89 K/uL (0.11-0.59) H 07/31/22 15:46 Eos # (Auto) 0.41 K/uL (0-0.50) 07/31/22 15:46 Baso # (Auto) 0.04 K/uL (0-0.2) 07/31/22 15:46 Immature Gran # (Auto) 0.08 K/uL (0.01-0.20) 07/31/22 15:46 Sodium 138 mmol/L (136-145) 07/31/22 15:46 Potassium 4.2 mmol/L (3.5-5.1) 07/31/22 15:46 Chloride 103 mmol/L (98-107) 07/31/22 15:46 Carbon Dioxide 25 mmol/L (21-32) 07/31/22 15:46 Anion Gap 10 (3-11) 07/31/22 15:46 BUN 12 mg/dl (6-23) 07/31/22 15:46 Creatinine 0.90 mg/dl (0.6-1.2) 07/31/22 15:46 Est Cr Clr Drug Dosing 93.1 ml/min 07/31/22 15:46 Est GFR ( Amer) 83.4 ml/min 07/31/22 15:46 Est GFR (Non-Af Amer) 72.0 ml/min 07/31/22 15:46 BUN/Creatinine Ratio 13.3 (10-20) 07/31/22 15:46 Glucose 150 mg/dl (70-99(Fasting)) H 07/31/22 15:46 POC Glucose 116 mg/dl (70-99) H 07/31/22 22:15 Calcium 10.0 mg/dl (8.6-10.3) 07/31/22 15:46 Total Bilirubin 0.3 mg/dl (0.2-1.0) 07/31/22 15:46 AST 27 U/L (13-39) 07/31/22 15:46 ALT 37 U/L (7-52) 07/31/22 15:46 Alkaline Phosphatase 104 U/L (34-104) 07/31/22 15:46 Total Protein 7.8 gm/dl (6.0-8.3) 07/31/22 15:46 Albumin 4.3 gm/dl (3.4-5.0) 07/31/22 15:46 Globulin 3.5 gm/dl (2.5-4.0) 07/31/22 15:46 Albumin/Globulin Ratio 1.2 (0.9-2) 07/31/22 15:46 SARS-CoV-2, RNA, NAAT NEGATIVE (NEGATIVE) 07/31/22 20:00 Impressions Soft Tissue Neck CT 07/31/22 16:28 CT OF THE NECK WITH IV CONTRAST CLINICAL HISTORY: Left facial swelling. COMPARISON STUDY: No previous studies for comparison. TECHNIQUE: Following IV administration of 90 mL of Optiray, helical axial images of the neck were obtained. Sagittal and coronal reconstructions were viewed. Automated exposure control was utilized for the study. A dose lowering technique was utilized adhering to the principles of ALARA. FINDINGS: Visualized portions of the intracranial contents are unremarkable. The parotid and submandibular glands are unremarkable. Multiple mildly enlarged left cervical lymph nodes are noted. Index left level 1 node on image 169 of 405 measures 1.4 x 0.9 cm. Multiple dental amalgams are present. Streak artifact from the amalgams make evaluation of the adjacent soft tissues difficult. Several teeth are absent. There is a 1.9 x 1.3 cm left facial rim-enhancing fluid collection on axial image 106. This is lateral to the inferior aspect of the left maxilla. This favors an abscess. No additional fluid collections are present. There is no soft tissue gas. There is mild adjacent stranding, including asymmetric thickening of the left aspect of the platysma. Mild groundglass opacities within the visualized lung apices are noted. The findings could reflect scarring given findings on chest CT of December 08, 2020. Major vasculature of the neck is grossly patent. Epiglottis is normal. IMPRESSION: 1. 1.9 x 1.3 cm rim-enhancing left facial fluid collection along the lateral aspect of the left maxilla. This favors a small abscess. This is odontogenic although definitive source is not identified on this exam. Associated left facial stranding and thickening of the left aspect of the platysma. 2. Mildly enlarged left cervical lymph nodes which are likely reactive. ACT 112: Negative or not required by law. Electronically signed by: Edson Alan M.D. 07/31/2022 6:[address] 07/31/22 16:32 CT head/brain wo con CLINICAL HISTORY: left facial droop Technique: Contiguous axial CT images of the head were acquired from the base of the skull to the vertex without intravenous contrast administration. Images were viewed in brain, subdural and bone windows. Automated dose lowering techniques and/or adjustment according to patient size were utilized for this exam. Comparison: Comparison is made to CT head 1021 Findings: The ventricles, basal cisterns, and cerebral sulci are normal. There is no acute intracranial hemorrhage or evidence of acute territorial infarction. Neither mass effect, shift of the midline structures, nor abnormal extra-axial fluid collections are shown. There is a air-fluid level in the left sphenoid sinus. The orbits appear normal. There are no acute fractures of the calvaria or scalp swelling. Impression: No acute intracranial hemorrhage, no evidence of acute territorial infarction or other acute intracranial disease process. Mild sphenoid sinus disease. ACT 112: Negative or not required by law. Electronically signed by: Jose Daniel Beckford M.D. 07/31/2022 5:37 PM Medications Administered Bupropion HCl (Bupropion Sr 100 Mg Tabcr) 200 mg PO BID GIANNA Stop: 08/30/22 21:44 Last Admin: 07/31/22 22:09 Dose: 200 mg Documented By: ELYSE Guaifenesin (Guaifenesin 600 Mg Tabcr) 600 mg PO BID GIANNA Stop: 08/30/22 21:44 Last Admin: 07/31/22 22:10 Dose: 600 mg Documented By: ELYSE Insulin Aspart (Insulin Aspart Per Unit Charge) 0 units SC ACHS GIANNA Stop: 08/30/22 21:44 Last Admin: 07/31/22 22:25 Dose: Not Given Documented By: ELYSE Insulin Glargine (Lantus Per Unit Charge) 20 units SQ BID GIANNA Stop: 08/30/22 21:44 Last Admin: 07/31/22 22:39 Dose: 20 units Documented By: ELYSE Co-signed By: [facility] [place] Metoprolol Tartrate (Metoprolol Tartrate 25 Mg Tab) 75 mg PO BID GIANNA Stop: 08/30/22 21:44 Last Admin: 07/31/22 22:09 Dose: 75 mg Documented By: ELYSE Montelukast Sodium (Montelukast Sodium 10 Mg Tablet) 10 mg PO HS GIANNA Stop: 08/30/22 21:44 Last Admin: 07/31/22 22:10 Dose: 10 mg Documented By: ELYSE Spironolactone (Spironolactone 25 Mg Tab) 50 mg PO BID17 GIANNA Stop: 08/30/22 21:44 Last Admin: 07/31/22 22:09 Dose: 50 mg Documented By: ELYSE PG Care Time/CCT Total # of Minutes Spent Total Time Spent with Patient: Total time spent is greater than 50% in coordination of care (as documented) at patient's floor/unit and/or counseling patient: Coding Level of Care Code 13593 INT INP/OBS CARE MIN Diagnoses Abscess, dental K04.7 Type 2 diabetes mellitus with insulin therapy E11.9; Z79.4 Hypertension I10 GERD (gastroesophageal reflux disease) K21.9 Kidney stones N20.0 Atrial flutter, paroxysmal I48.92 Asthma J45.909
--- NOTE | 2022-07-31 20:05 | Oral/Maxillofacial Consult ---
Date of Consultation July 31, 2022 Assessment & Plan (1) Cellulitis and abscess of face: History of Present Illness History of Present Illness Oral Maxillofacial Surgery Exam Present Complaint: Facial swelling HPI: The patient is a 56-year-old female who is a history diabetes who presented to the emergency department for an evaluation of facial swelling. Patient states that she had dental procedure recently. She has many allergies to Meds and antibiotics The procedure was a root canal on the upper left second molar. She started noticing left-sided facial swelling and left facial droop over the course the last few days. She was started on Zithromax on Friday for presumed infection by her dentist Gabino Burnett.. She was seen by her primary care physician today and sent to the emergency department for further evaluation. She can swallow and has no airway issues this AM Overall her medical issues are stable DM stable Oral Exam: Finding-Facial swelling left side, left There is a 1.9 x 1.3 cm left facial rim-enhancing fluid collection on axial image 106. This is lateral to the inferior aspect of the left maxilla. This favors an abscess. No additional fluid collections are present There is trismus and a large collection of infection in the cheek,mucobuccal fold with extension into the temporal space. Imaging: CT OF THE NECK WITH IV CONTRAST CLINICAL HISTORY: Left facial swelling. FINDINGS: Visualized portions of the intracranial contents are unremarkable. The parotid and submandibular glands are unremarkable. Multiple mildly enlarged left cervical lymph nodes are noted. Index left level 1 node on image 169 of 405 measures 1.4 x 0.9 cm. Multiple dental amalgams are present. Streak artifact from the amalgams make evaluation of the adjacent soft tissues difficult. Several teeth are absent. There is a 1.9 x 1.3 cm left facial rim-enhancing fluid collection on axial image 106. This is lateral to the inferior aspect of the left maxilla. This favors an abscess. No additional fluid collections are present. There is no soft tissue gas. There is mild adjacent stranding, including asymmetric thickening of the left aspect of the platysma. Mild ground glass opacities within the visualized lung apices are noted. The findings could reflect scarring given findings on chest CT of December 08, 2020. Major vasculature of the neck is grossly patent. Epiglottis is normal. IMPRESSION: 1. 1.9 x 1.3 cm rim-enhancing left facial fluid collection along the lateral aspect of the left maxilla. This favors a small abscess. This is odontogenic although definitive source is not identified on this exam. Associated left facial stranding and thickening of the left aspect of the platysma. 2. Mildly enlarged left cervical lymph nodes which are likely reactive. Soft tissue: Left cheek grossly swollen, natural skin folds obscured by swelling and this is the cause of the lack of left side of the mouth and presumed facial drop Floor of the mouth, tongue, hard/soft palate, posterior pharyngeal area all with in normal limits, no pathology or abnormal findings noted. No lesions noted that require follow up or Bx. There appears to be a bite ulcer left cheek Oral Care: Overall oral care is good Occlusion: Class I TMJ exam: Limited opening secondary to infection, No history of TMJ injury or dysfunction Periodontal exam: Healthy gingival tissue without evidence of periodontal pathology. Head/Neck exam: Neck is supple, FROM, Able to extend and flex neck w/o difficulty, no masses, no abnormalities, no airway issues, no evidence of sleep apnea. Treatment Plan: For OR this afternoon Keep NPO Will require I&D Set with general anesthesia in hospital due to complexity of the procedure I reviewed the treatment plan and consent with the patient. Understanding was expressed. Time was given for questions regarding the surgery, risks and post op care. we will need to consider oral antibiotics for home use upon D/C Risks discussed: Bleeding,Pain,swelling,infection, dry socket, delayed healing, nerve injury to face,lips,tongue,chin area which could be permanent (rare). TMJ, jaw stiffness, change in bite (rare), ear pain (referred). Sinus problems like fistula or infection. Need to leave a small root fragment in place to avoid injury to nerve or sinus. Relationship of wisdom teeth to nerve/sinus and risk of jaw fracture. Home care reviewed: tooth brushing, rinsing, follow up care with Dr Maria. diet=[id number] dental. Discussed activity level, driving/work while on Rx pain Meds. Surgery - plan I&D this afternoon Allergies Allergy/AdvReac Type Severity Reaction Status Date / Time codeine Allergy Intermediate Severe Verified 07/31/22 11:02 [From Tylenol-Codeine #3] migraines fluconazole [From Diflucan] Allergy Intermediate Diffuse Verified 07/31/22 11:02 hives, itchy latex Allergy Intermediate Lip Verified 07/31/22 11:02 swelling pravastatin Allergy Intermediate Hives Verified 07/31/22 11:02 simvastatin Allergy Intermediate Hives Verified 07/31/22 11:02 doxycycline Allergy Mild Rash Verified 07/31/22 11:02 erythromycin base Allergy Mild Rash Verified 07/31/22 11:02 prednisone Allergy Mild Rash Verified 07/31/22 11:02 empagliflozin AdvReac Mild Yeast Verified 07/31/22 11:02 [From Jardiance] infection, worsening mood hydrocodone AdvReac Mild Severe Verified 07/31/22 11:02 headache Penicillins AdvReac Mild Rash Verified 07/31/22 11:02 Home Medications Medication Instructions Recorded Confirmed Type cyanocobalamin (vitamin B-12) 2,500 mcg PO QAM 08/30/19 07/31/22 History 2,500 mcg tablet Oxygen Home #1 ea 12/19/20 07/31/22 Rx potassium 99 mg tablet 99 mg PO BID 03/07/21 07/31/22 History guaifenesin 600 mg tablet, 600 mg PO BID 08/01/21 07/31/22 History extended release 12 hr (Mucinex) metformin 500 mg tablet 1,000 mg PO BID #360 tabs 09/17/21 07/31/22 Rx ondansetron HCl 8 mg tablet 8 mg PO Q8H PRN nausea and 10/24/21 07/31/22 Rx vomiting #30 tabs aspirin 81 mg tablet,delayed 81 mg PO BID 10/31/21 07/31/22 History release benzonatate 200 mg capsule 200 mg PO TID PRN Cough 10/31/21 07/31/22 History ibuprofen 200 mg capsule 400 mg PO Q6H PRN Pain 11/08/21 07/31/22 History ciclesonide 160 mcg/actuation 1 puff inhalation BID #6.1 grams 01/14/22 07/31/22 Rx aerosol inhaler (Alvesco) azelastine 205.5 mcg (0.15 %) 2 spray intranasal QAM 01/28/22 07/31/22 History nasal spray loratadine 10 mg chewable tablet 10 mg PO HS 02/07/22 07/31/22 History (Claritin) montelukast 10 mg tablet 10 mg PO HS 02/07/22 07/31/22 History (Singulair) bupropion HCl 200 mg tablet,12 hr 200 mg PO BID 02/14/22 07/31/22 History sustained-release (Wellbutrin SR) phenazopyridine 200 mg tablet 200 mg PO Q8H PRN pain #10 tabs 02/14/22 07/31/22 Rx (Pyridium) blood sugar diagnostic (OneTouch #150 ea 02/21/22 07/31/22 Rx Verio test strips) blood-glucose meter (OneTouch #1 ea 02/21/22 07/31/22 Rx Verio IQ Meter kit) lancets 33 gauge (OneTouch Delica #200 ea 02/21/22 07/31/22 Rx Lancets) levalbuterol tartrate 45 2 inh inhalation BID #15 grams 03/01/22 07/31/22 Rx mcg/actuation aerosol inhaler (Xopenex HFA) lorazepam 0.5 mg tablet 0.5 mg PO Q6H PRN anxiety #30 tabs 03/10/22 07/31/22 Rx diclofenac sodium 1 % topical gel 4 g topical BID PRN Pain #100 grams 03/11/22 07/31/22 Rx (Voltaren Arthritis Pain) furosemide 20 mg tablet 20 mg PO QAM #90 tabs 03/11/22 07/31/22 Rx metoprolol tartrate 50 mg tablet 75 mg PO BID #270 tabs 03/11/22 07/31/22 Rx spironolactone 100 mg tablet 50 mg PO BID #90 tabs 03/11/22 07/31/22 Rx (Aldactone) ascorbic acid (vitamin C) 1,000 mg 1 g PO DAILY 03/27/22 07/31/22 History tablet nystatin 100,000 unit/mL oral 5 ml PO QID PRN thrush #200 mL 04/08/22 07/31/22 Rx suspension pen needle, diabetic 31 gauge x #100 ea 04/19/22 07/31/22 Rx 3/16" (BD Ultra-Fine Mini Pen Needle) celecoxib 200 mg capsule (Celebrex) 200 mg PO BID #60 caps 05/06/22 07/31/22 Rx insulin detemir U-100 100 unit/mL 75 - 100 unit subcut QPM 05/16/22 07/31/22 History (3 mL) subcutaneous pen (Levemir FlexTouch U-100 Insulin) blood sugar diagnostic (Accu-Chek 06/05/22 07/31/22 History Guide test strips) sumatriptan succinate 100 mg 100 mg PO UD PRN Migraine Headache 06/06/22 07/31/22 Rx tablet (Imitrex) #10 tabs omeprazole 20 mg capsule,delayed 20 mg PO BID #60 caps 06/24/22 07/31/22 Rx release semaglutide 2 mg/dose (8 mg/3 mL) 2 mg (0.75 mL) subcut Q7D #9 mL 07/09/22 07/31/22 Rx subcutaneous pen injector azithromycin 250 mg tablet See Rx Instructions .Route .COMPLEX 07/31/22 07/31/22 History tamsulosin 0.4 mg capsule 0.4 mg PO HS PRN Stent replacement 07/31/22 07/31/22 History surgery Patient History Medical History Anxiety and depression Asthma inhalers daily Atrial flutter, paroxysmal Follows with Dr Sherry Begum History of- no recurrence per cardio Chronic sinusitis Post nasal drip and cough since having Covid in 2020 Dyspnea on exertion Fatty liver GERD (gastroesophageal reflux disease) History of blood transfusion During 2020 admission (retroperitoneal hematoma) History of COVID-19 Dx 11/18/20 > hospitalized at [facility] until 01/02/21, d/c to [facility] > residual ANDERSEN and dependence on supplemental oxygen 2L O2 Hypercholesterolemia Hypertension Pt stated her blood pressure is "usually normal, Metoprolol for her atrial flutter only" Hyperuricosuria Kidney stones Hx Migraine headache Obesity BMI 41.1 On home oxygen therapy 2 lpm continuous Proteinuria Recurrent UTI Retroperitoneal hematoma During 2020 admission for Covid Type 2 diabetes mellitus with insulin therapy Surgical History H/O oral surgery 07/2022 History of cardioversion 2009, [facility] History of colonoscopy History of cystoscopy Multiple--last 02/14/22 @ [facility] History of lithotripsy 09/03/2019: LMA#4. No issues per anesthesia postop progress note. History of myringotomy History of renal stent History of tonsillectomy and adenoidectomy History of transesophageal echocardiography (DASIA) S/P section X 1 S/P hernia surgery X 2 S/P ureteral stent placement Cystoscopy Retrograde Pyelogram, Ureteral Stent (05/10/21): MAC at [facility] S/P wisdom tooth extraction Family History Aunt Colorectal cancer Grandfather (Maternal) Prostate cancer Mother , age 55 of Pseudomonas sepsis Lupus Raynaud's disease Father , age 85 Clotting disorder Hypertension Peptic ulcer disease Other No family history of adverse response to anesthesia Denies family history of Ovarian cancer Myocardial infarction Breast cancer Social History Smoking Status: Never smoker Second Hand Exposure: Yes ( smokes-not in home); Do You Dip or Chew Tobacco: No; Hx Alcohol Use: No Hx Substance Use: No Preferred Language: Estonian Communication Ability: Effective Visual Impairment: No Limitations Hearing Ability: Normal Stripping Shovel Oiler Required: No Beliefs That Will Affect Care: None marital status: Current Living Situation: Spouse and Family Current Living Situation Comment: AND SON current occupational status: employed 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, 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 Other Information That Helps Us Care for You: No Feels Safe at Home: Yes Safety Concerns: Feels Safe At This Time Childhood Exposure to Second-Hand Smoke: No Diet: other Diet Comment: low sugar Dental Care, Regularly: Yes Physical Activity Frequency: Does not Exercise Seatbelt Use: always Sunscreen Use: No Assistive Devices: Cane and Oxygen - at Night Physical Exam Physical Exam: PHYSICAL EXAMINATION: GENERAL: Patient is awake alert in no acute distress patient is resting comfortably and showing no signs of anxiety EYES: The conjunctivae are clear. The pupils are round and reactive. EARS, NOSE, MOUTH AND THROAT: The nose is without any evidence of any deformity. There is significant swelling of the buccal mucosa. Patient has trismus. There is tenderness over the anterior and left lateral soft tissues of the neck. NECK: The neck is nontender and supple. RESPIRATORY: Normal respiratory effort is noted there is no evidence of wheezing rhonchi or rales CARDIOVASCULAR: Regular rate and rhythm noted there no murmurs rubs or gallops normal S1 normal S2. GASTROINTESTINAL: The abdomen is soft. Abdomen is nontender. MUSCULOSKELETAL/EXTREMITIES: There is no evidence of gross deformity full range of motion is noted in the hips and shoulders. SKIN: There is no obvious evidence of any rash. There are no petechiae, pallor or cyanosis noted. NEUROLOGIC: Patient is awake alert and oriented x3. There is a left facial droop involving the corner of the mouth. Forehead is spared Results & Data Vital Signs (Past 12 Hours) Vital Signs Temp Pulse Pulse Resp BP BP Pulse Ox 07/31/22 17:18 91 H 07/31/22 16:52 94 H 18 108/83 93 07/31/22 14:44 36.9 C 104 H 20 118/78 96 O2 Del Method 07/31/22 17:18 07/31/22 16:52 Room Air 07/31/22 14:44 Room Air PG Care Time/CCT Total # of Minutes Spent Total Time Spent with Patient: Total time spent is greater than 50% in coordination of care (as documented) at patient's floor/unit and/or counseling patient: Coding Level of Care Code 96422 IN/OBS CONSULT LVL 2,35M Diagnoses Cellulitis and abscess of face L03.211; L02.01
[2022-07-31] MEDS ORDERED: GLUCOSE 40% GEL 15 GM TUBE PO PRN (21:45)
[2022-07-31] MEDS ORDERED: LORazepam 0.5 MG TAB PO PRN (21:45)
[2022-07-31] MEDS ORDERED: DOCUSATE SODIUM 100 MG CAP PO PRN (21:45)
[2022-07-31] MEDS ORDERED: CARBOHYDRATES FOR HYPOGLYCEMIA PO PRN (21:45)
[2022-07-31] MEDS ORDERED: ACETAMINOPHEN 325 MG TAB PO PRN (21:45)
[2022-07-31] MEDS ORDERED: GLUCOSE 10 TAB/TUBE PO PRN (21:45)
[2022-07-31] MEDS ORDERED: GLUCAGON FOR INJ 1 MG VIAL SQ PRN (21:45)
[2022-07-31] MEDS ORDERED: ONDANSETRON INJ 2 MG/ML 2 ML VIAL IV PRN (21:45)
[2022-07-31] MEDS ORDERED: LANTUS PER UNIT CHARGE SQ SCH (21:45)
[2022-07-31] MEDS ORDERED: DEXTROSE 50% 50 ML SYRINGE IV PRN (21:45)
[2022-07-31] MEDS ORDERED: POLYETHYLENE (MIRALAX) 17 GM PACK PO PRN (21:45)
[2022-07-31] MEDS ORDERED: PHARMACY GLYCEMIC MGMT CONSULT PRN (21:45)
[2022-07-31] MEDS ORDERED: CICLESONIDE INH SCH (21:45)
[2022-07-31] MEDS ORDERED: MoRPHine SULFATE 2 MG/ML CARP IV PRN (21:45)
[2022-07-31] MEDS ORDERED: INSULIN ASPART PER UNIT CHARGE SC SCH (21:45)
[2022-07-31] MEDS: buPROPion SR 100 MG TABCR PO SCH (22:09)
[2022-07-31] MEDS: SPIRONOLACTONE 25 MG TAB PO SCH (22:09)
[2022-07-31] MEDS: METOPROLOL TARTRATE 25 MG TAB PO SCH (22:09)
[2022-07-31] MEDS: guaiFENesin 600 MG TABCR PO SCH (22:10)
[2022-07-31] MEDS: MONTELUKAST SODIUM 10 MG TABLET PO SCH (22:10)
[2022-07-31] MEDS ORDERED: LEVALBUTEROL TARTRATE 15 GM HFA.AER.AD INH SCH (22:30)
[2022-07-31] MEDS ORDERED: LEVALBUTEROL TARTRATE 15 GM HFA.AER.AD INH PRN (22:47)
[2022-07-31] MEDS: LEVALBUTEROL TARTRATE 15 GM HFA.AER.AD INH SCH (23:15)
[2022-08-01] MEDS: metroNIDAZOLE 500 MG/100 ML BAG IV SCH ×3 (02:40→17:30)
[2022-08-01] MEDS ORDERED: Nursing to Pharmacy Communication SCH (05:30)
[2022-08-01] MEDS: INSULIN ASPART PER UNIT CHARGE SC SCH ×4 (06:17→21:50)
[2022-08-01] MEDS: LEVALBUTEROL TARTRATE 15 GM HFA.AER.AD INH SCH ×2 (07:07→19:34)
[2022-08-01 08:03] LABS: Hematocrit (blood only) 39.2 % (37.0-47.0); Hemoglobin 12.5 g/dl (12.0-16.0); Mean Corpuscular Hemoglobin 28.2 pg (25.0-34.0); Mean Corpuscular Hgb Conc 31.9 g/dL (32.0-36.0); Mean Corpuscular Volume 88.3 fL (80.0-100.0); Mean Platelet Volume 8.7 fL (9.4-12.4); Platelet Count 249 K/uL (130-400); RDW Coefficient of Variation 17.1 % (11.5-14.5); RDW Standard Deviation 55.8 fL (36.4-46.3); Red Blood Count 4.44 M/uL (4.20-5.40); White Blood Count 9.54 K/ul (4.8-10.8)
[2022-08-01 08:18] LABS: BUN Creatinine Ratio 10.5 (10-20); Calcium 9.3 mg/dl (8.6-10.3); Creatinine Clr Calc Pharmacy 110.2 ml/min; Est GFR (African American) 102.3 ml/min; Est GFR (Non-African American) 88.3 ml/min; Potassium 4.1 mmol/L (3.5-5.1)
--- NOTE | 2022-08-01 08:41 | Hospitalist Progress Note ---
Date of Service August 01, 2022 Assessment & Plan (1) Abscess, dental: Plan: 56yo female with recent root canal performed on left wisdom tooth presenting with pain, swelling and redness of the left face. Recent root canal last Friday/finished with Dr Uriarte in [facility] and was on Azithromycin given allergies for suspected infection CT imaging on admission w/ 1.9 x 1.3cm rim-enhancing collection of the left face along the lateral aspect of the maxilla suggestive of a small abscess. Dr Maria consulted On Ceftriaxone/Flagyl No blood cultures on admission -- will obtain but noting she has been on ABX WBC improved Afebrile Continue warm compress, Tylenol/morphine for pain -- added IV tylenol while NPO Antiemetics prn NPO for OR today for possible drainage -- Dr Maria will see this afternoon Does not appear overly dehydrated and CXR w/ mild edema (on 2L for reported drop w/ morphine administration, using 2L at night but just recently weaned off during the day from prior COVID infection back in 2020 w/ lung damage) --Will hold off additional IVF for now. She did get her AM dose of lasix and will hold for AM/monitor on exam. Also ?underlying JIMY/restrictive -- sleep study for tonight if able to eval for any sign destat/jimy and outpt f/u sleep study if needed Monitor labs/exam on repeat (2) Type 2 diabetes mellitus with insulin therapy: Plan: Patient with well controlled DM. Last HgbA1C on 01/17/22 = 5.3. She follows with [facility], last seen 06/01/22. Outpatient meds: Ozempic, Metformin and basal insulin - Levimir 60-75u daily. Blood sugar presently 150 Holding metformin/ozempic while inpatient continue lantus 10u BID w/ ISS for now -- pharmacy on consult for glycemic management BSGs acceptable and will monitor (3) Hypertension: Plan: Chronic. Stable. Mildly elevated on admission in setting of pain Pain improving w/ abx as above Remains on spironolactone/lasix -- will hold for AM until asses renal function/BPs (4) GERD (gastroesophageal reflux disease): Plan: Chronic. Stable -Protonix 40mg po daily while inpatient (5) Kidney stones: Plan: Patient with renal stents in place. Last exchanged in May. She is to followup with Urology next week to discuss future plans -Monitor (6) Atrial flutter, paroxysmal: Plan: Remote history of such. -Continue Metoprolol 75mg po BID -No anticoagulation (7) Asthma: Plan: Chronic, stable Continue home alvesco -- ordered for her to send hers down for pharmacy to relabel/use as reports issues w/ formulary in past Continue xopenex BID, mucinex, singulair Using O2 HS and not anymore during the day ?combination ASthma/obstructive sleep apnea/restrictive lung disease given obesity Overnight pulse ox for eval, outpt f/u On 2L post-morphine CXR w/ mild edema - was given lasix this morning and her spironolactone Holding off further IVF for now Check mag/replacement if needed DVT proph: SCDs for now, NPO for OR chemo proph following procedure if bleeding controlled/ok w/ Dr Maria Plan continue IV abx/pain control NPO for likely OR today Admission and Anticipated Discharge Date Admission Date: July 31, 2022 Supervising Physician Co-Signing Physician Notes The patient was not seen by me. The chart was reviewed. Case discussed with CLARE Vivar. Agree with assessment and plan Subjective eval this morning - concerned about no knowing the plan/seen by Dr Maria yet today. She had root canal last week, started friday and finished by Dr Uriarte in [facility]. she felt a lump on her right side of her face but thought was from biting her cheek w/ anesthesia/local and then noticed increased facial droop/now with drainage since last night. Was seen by PCP yesterday, prior rx for azithromycin from dentist for possible infection. Did have temp in 99s yesterday at office, which is high for her. Has a little bit of a headache this morning since the morphine, some nausea. Was given zofran in ER but nothing since. RN to provide zofran and dose Tyelnol and will monitor. Discussed I would suspect need given abscess on exam for OR today. She reports decreased swelling but still unable to fully open her mouth compared to yesterday Had been given morphine, O2 dropped w/ such, on supplemental O2. Also w/ hx asthma, on alvesco -- with her and will order/hold inpatient meds. Not wearing O2 at baseline during the day at present but had been since COVID infection back in 2020 after hospitalization for 1-1/2 months and just got off the oxygen during the day in May of this year. Never tested for sleep apnea. Dr Maria to be around this afternoon around 01/1230 to see about need for OR. Questions/concerns addressed at this time. Of note, baseline lumbar radiculopathy/L hip pain, kidney stones/stent exchanges w/ urology and prior hx hematomas/bladder obstruction. Physical Exam Physical Exam: General: WD/WN obese female sitting up in bed, NAD but reporting mild headache HEENT: head normocephalic, atraumatic, pupils equal in size +trismus, +swelling to LEFT face, +tenderness tp palpation over LEFT cheek/neck anterior/laterally significant swelling buccal mucosa, tense fluid collection appreciated left upper cheek buccal aspect no stridor, clearing secretions Resp: diminished in the bases, faint expiratory wheezing, no rales, on 2L post morphine administration CV: RRR, no significant m/r/g, no pitting edema/calf tenderness GI: +BS, soft/NT ; no meyer MSK/Neuro: no focal deficit, follows commands, strength intact bilaterally Psych: AOx3, cooperative with exam Results & Data Results & Data Vital Signs (Past 12 Hours) Vital Signs Temp Pulse Pulse Pulse Pulse Resp BP 08/01/22 07:30 36.6 C 84 18 104/65 08/01/22 07:08 78 16 07/31/22 23:15 95 H 16 07/31/22 21:47 07/31/22 21:46 37.3 C 96 H 18 07/31/22 21:20 90 BP Pulse Ox O2 Del Method O2 Flow Rate 08/01/22 07:30 95 Nasal Cannula 2 08/01/22 07:08 96 Nasal Cannula 2 07/31/22 23:15 97 Nasal Cannula 2 07/31/22 21:47 Room Air, Nasal Cannula 2 07/31/22 21:46 142/85 H 95 Nasal Cannula 2 07/31/22 21:20 Laboratory Results 08/01/22 08/01/22 08/01/22 Range/Units 07:44 07:44 06:00 WBC 9.54 (4.8-10.8) K/ul RBC 4.44 (4.20-5.40) M/uL Hgb 12.5 (12.0-16.0) g/dl Hct 39.2 (37.0-47.0) % MCV 88.3 (80.0-100.0) fL MCH 28.2 (25.0-34.0) pg MCHC 31.9 L (32.0-36.0) g/dL RDW Std Deviation 55.8 H (36.4-46.3) fL RDW Coeff of [place] 17.1 H (11.5-14.5) % Plt Count 249 (130-400) K/uL MPV 8.7 L (9.4-12.4) fL Immature Gran % (Auto) % Neut % (Auto) % Lymph % (Auto) % [place] % (Auto) % Eos % (Auto) % Baso % (Auto) % Neut # (Auto) (1.40-6.50) K/uL Lymph # (Auto) (1.2-3.4) K/uL [place] # (Auto) (0.11-0.59) K/uL Eos # (Auto) (0-0.50) K/uL Baso # (Auto) (0-0.2) K/uL Immature Gran # (Auto) (0.01-0.20) K/uL Sodium 139 (136-145) mmol/L Potassium 4.1 (3.5-5.1) mmol/L Chloride 105 (98-107) mmol/L Carbon Dioxide 27 (21-32) mmol/L Anion Gap 7 (3-11) BUN 8 (6-23) mg/dl Creatinine 0.76 (0.6-1.2) mg/dl Est Cr Clr Drug Dosing 110.2 ml/min Est GFR ( Amer) 102.3 ml/min Est GFR (Non-Af Amer) 88.3 ml/min BUN/Creatinine Ratio 10.5 (10-20) Glucose 103 H (70-99(Fasting)) mg/dl POC Glucose 92 (70-99) mg/dl Calcium 9.3 (8.6-10.3) mg/dl Magnesium 2.0 (1.7-2.4) mg/dl Total Bilirubin (0.2-1.0) mg/dl AST (13-39) U/L ALT (7-52) U/L Alkaline Phosphatase (34-104) U/L Total Protein (6.0-8.3) gm/dl Albumin (3.4-5.0) gm/dl Globulin (2.5-4.0) gm/dl Albumin/Globulin Ratio (0.9-2) SARS-CoV-2, RNA, NAAT (NEGATIVE) 07/31/22 07/31/22 07/31/22 Range/Units 22:15 20:00 15:46 WBC (4.8-10.8) K/ul RBC (4.20-5.40) M/uL Hgb (12.0-16.0) g/dl Hct (37.0-47.0) % MCV (80.0-100.0) fL MCH (25.0-34.0) pg MCHC (32.0-36.0) g/dL RDW Std Deviation (36.4-46.3) fL RDW Coeff of [place] (11.5-14.5) % Plt Count (130-400) K/uL MPV (9.4-12.4) fL Immature Gran % (Auto) % Neut % (Auto) % Lymph % (Auto) % [place] % (Auto) % Eos % (Auto) % Baso % (Auto) % Neut # (Auto) (1.40-6.50) K/uL Lymph # (Auto) (1.2-3.4) K/uL [place] # (Auto) (0.11-0.59) K/uL Eos # (Auto) (0-0.50) K/uL Baso # (Auto) (0-0.2) K/uL Immature Gran # (Auto) (0.01-0.20) K/uL Sodium 138 (136-145) mmol/L Potassium 4.2 (3.5-5.1) mmol/L Chloride 103 (98-107) mmol/L Carbon Dioxide 25 (21-32) mmol/L Anion Gap 10 (3-11) BUN 12 (6-23) mg/dl Creatinine 0.90 (0.6-1.2) mg/dl Est Cr Clr Drug Dosing 93.1 ml/min Est GFR ( Amer) 83.4 ml/min Est GFR (Non-Af Amer) 72.0 ml/min BUN/Creatinine Ratio 13.3 (10-20) Glucose 150 H (70-99(Fasting)) mg/dl POC Glucose 116 H (70-99) mg/dl Calcium 10.0 (8.6-10.3) mg/dl Magnesium (1.7-2.4) mg/dl Total Bilirubin 0.3 (0.2-1.0) mg/dl AST 27 (13-39) U/L ALT 37 (7-52) U/L Alkaline Phosphatase 104 (34-104) U/L Total Protein 7.8 (6.0-8.3) gm/dl Albumin 4.3 (3.4-5.0) gm/dl Globulin 3.5 (2.5-4.0) gm/dl Albumin/Globulin Ratio 1.2 (0.9-2) SARS-CoV-2, RNA, NAAT NEGATIVE (NEGATIVE) 07/31/22 Range/Units 15:46 WBC 11.39 H (4.8-10.8) K/ul RBC 4.93 (4.20-5.40) M/uL Hgb 13.9 (12.0-16.0) g/dl Hct 43.5 (37.0-47.0) % MCV 88.2 (80.0-100.0) fL MCH 28.2 (25.0-34.0) pg MCHC 32.0 (32.0-36.0) g/dL RDW Std Deviation 55.5 H (36.4-46.3) fL RDW Coeff of [place]idan 17.1 H (11.5-14.5) % Plt Count 278 (130-400) K/uL MPV 8.9 L (9.4-12.4) fL Immature Gran % (Auto) 0.7 % Neut % (Auto) 71.2 % Lymph % (Auto) 16.3 % [place] % (Auto) 7.8 % Eos % (Auto) 3.6 % Baso % (Auto) 0.4 % Neut # (Auto) 8.11 H (1.40-6.50) K/uL Lymph # (Auto) 1.86 (1.2-3.4) K/uL [place] # (Auto) 0.89 H (0.11-0.59) K/uL Eos # (Auto) 0.41 (0-0.50) K/uL Baso # (Auto) 0.04 (0-0.2) K/uL Immature Gran # (Auto) 0.08 (0.01-0.20) K/uL Sodium (136-145) mmol/L Potassium (3.5-5.1) mmol/L Chloride (98-107) mmol/L Carbon Dioxide (21-32) mmol/L Anion Gap (3-11) BUN (6-23) mg/dl Creatinine (0.6-1.2) mg/dl Est Cr Clr Drug Dosing ml/min Est GFR ( Amer) ml/min Est GFR (Non-Af Amer) ml/min BUN/Creatinine Ratio (10-20) Glucose (70-99(Fasting)) mg/dl POC Glucose (70-99) mg/dl Calcium (8.6-10.3) mg/dl Magnesium (1.7-2.4) mg/dl Total Bilirubin (0.2-1.0) mg/dl AST (13-39) U/L ALT (7-52) U/L Alkaline Phosphatase (34-104) U/L Total Protein (6.0-8.3) gm/dl Albumin (3.4-5.0) gm/dl Globulin (2.5-4.0) gm/dl Albumin/Globulin Ratio (0.9-2) SARS-CoV-2, RNA, NAAT (NEGATIVE) Diagnostic Findings Soft Tissue Neck CT 07/31/22 16:28 CT OF THE NECK WITH IV CONTRAST CLINICAL HISTORY: Left facial swelling. COMPARISON STUDY: No previous studies for comparison. TECHNIQUE: Following IV administration of 90 mL of Optiray, helical axial images of the neck were obtained. Sagittal and coronal reconstructions were viewed. Automated exposure control was utilized for the study. A dose lowering technique was utilized adhering to the principles of ALARA. FINDINGS: Visualized portions of the intracranial contents are unremarkable. The parotid and submandibular glands are unremarkable. Multiple mildly enlarged left cervical lymph nodes are noted. Index left level 1 node on image 169 of 405 measures 1.4 x 0.9 cm. Multiple dental amalgams are present. Streak artifact from the amalgams make evaluation of the adjacent soft tissues difficult. Several teeth are absent. There is a 1.9 x 1.3 cm left facial rim-enhancing fluid collection on axial image 106. This is lateral to the inferior aspect of the left maxilla. This favors an abscess. No additional fluid collections are present. There is no soft tissue gas. There is mild adjacent stranding, including asymmetric thickening of the left aspect of the platysma. Mild groundglass opacities within the visualized lung apices are noted. The findings could reflect scarring given findings on chest CT of December 08, 2020. Major vasculature of the neck is grossly patent. Epiglottis is normal. IMPRESSION: 1. 1.9 x 1.3 cm rim-enhancing left facial fluid collection along the lateral aspect of the left maxilla. This favors a small abscess. This is odontogenic although definitive source is not identified on this exam. Associated left facial stranding and thickening of the left aspect of the platysma. 2. Mildly enlarged left cervical lymph nodes which are likely reactive. ACT 112: Negative or not required by law. Electronically signed by: Edson Alan M.D. 07/31/2022 6:[address] 07/31/22 16:32 CT head/brain wo con CLINICAL HISTORY: left facial droop Technique: Contiguous axial CT images of the head were acquired from the base of the skull to the vertex without intravenous contrast administration. Images were viewed in brain, subdural and bone windows. Automated dose lowering techniques and/or adjustment according to patient size were utilized for this exam. Comparison: Comparison is made to CT head 1021 Findings: The ventricles, basal cisterns, and cerebral sulci are normal. There is no acute intracranial hemorrhage or evidence of acute territorial infarction. Neither mass effect, shift of the midline structures, nor abnormal extra-axial fluid collections are shown. There is a air-fluid level in the left sphenoid sinus. The orbits appear normal. There are no acute fractures of the calvaria or scalp swelling. Impression: No acute intracranial hemorrhage, no evidence of acute territorial infarction or other acute intracranial disease process. Mild sphenoid sinus disease. ACT 112: Negative or not required by law. Electronically signed by: Jose Daniel Beckford M.D. 07/31/2022 5:37 PM Chest X-Ray 08/01/22 08:57 XR chest 1V portable CLINICAL HISTORY: pre-op, hypoxia TECHNIQUE: Single frontal radiograph of the chest was obtained. Comparison: Comparison is made to chest radiograph 01/23/2022 FINDINGS: No lines and tubes are seen. The cardiomediastinal silhouette is normal. Prominence and cephalization of the vasculature is seen. No evidence of pleural effusion or pneumothorax. IMPRESSION: Mild pulmonary edema. ACT 112: Negative or not required by law. Electronically signed by: Jose Daniel Beckford M.D. 08/01/2022 9:23 AM PG Care Time/CCT Total # of Minutes Spent Total Time Spent with Patient: Total time spent is greater than 50% in coordination of care (as documented) at patient's floor/unit and/or counseling patient: Coding Level of Care Code 56142 SUB INP/OBS CARE 3/50MIN Diagnoses Abscess, dental K04.7 Type 2 diabetes mellitus with insulin therapy E11.9; Z79.4 Hypertension I10 GERD (gastroesophageal reflux disease) K21.9 Kidney stones N20.0 Atrial flutter, paroxysmal I48.92 Asthma J45.909
[2022-08-01] MEDS ORDERED: FLUTICASONE FUROATE 200MCG 14 PUFFS/INHALER INH SCH (09:00)
--- NOTE | 2022-08-01 09:24 | XRay Report ---
XR chest 1V portable CLINICAL HISTORY: pre-op, hypoxia TECHNIQUE: Single frontal radiograph of the chest was obtained. Comparison: Comparison is made to chest radiograph 01/23/2022 FINDINGS: No lines and tubes are seen. The cardiomediastinal silhouette is normal. Prominence and cephalization of the vasculature is seen. No evidence of pleural effusion or pneumothorax. IMPRESSION: Mild pulmonary edema. ACT 112: Negative or not required by law. Electronically signed by: Jose Daniel Beckford M.D. 08/01/2022 9:23 AM
[2022-08-01] MEDS: buPROPion SR 100 MG TABCR PO SCH ×2 (10:08→20:33)
[2022-08-01] MEDS: guaiFENesin 600 MG TABCR PO SCH ×2 (10:08→20:33)
[2022-08-01] MEDS: PANTOprazole 40 MG TAB PO SCH (10:08)
[2022-08-01] MEDS: FUROSEMIDE 20 MG TAB PO SCH (10:08)
[2022-08-01] MEDS: METOPROLOL TARTRATE 25 MG TAB PO SCH ×2 (10:09→20:34)
[2022-08-01] MEDS: SPIRONOLACTONE 25 MG TAB PO SCH (10:10)
[2022-08-01] MEDS ORDERED: ACETAMINOPHEN 1,000 MG/100 ML VIAL IV PRN (10:19)
--- NOTE | 2022-08-01 11:39 | Pharmacy Report ---
Pharmacy Glycemic Short Note 2 - Date of Service August 01, 2022 - Glycemic Short BSG Results (Last 24 hours): 07/31/22 07/31/22 08/01/22 15:46 22:15 06:00 Glucose 150 H POC Glucose 116 H 92 08/01/22 07:44 Glucose 103 H POC Glucose OUTPATIENT ANTIDIABETIC REGIMEN: * Semaglutide * Metformin * Levemir 60-75 units daily (dose per Road Engineer visit, 06/01/22) * A1c = 5.3% ASSESSMENT: * Rosalie is a 56 yo T2DM admitted with dental abscess. * Current A1c indicates excellent outpatient glycemic control. * Patient is currently NPO pending possible abscess drainage later today. * She was given a dose of Lantus 20 units last evening. Fasting BSG of 92 mg/dL this AM. Held off on ordering AM basal insulin to ensure BSG not continuing to trend down. * Lunch BSG of 99 mg/dL. Will resume basal insulin at HS. PLAN FOR INPATIENT GLYCEMIC CONTROL: * Hold outpatient oral diabetes medications * Basal insulin * Lantus 20-25-30 units SQ HS * 20 units for BSG < 120 mg/dL * 25 units for BSG 120 - 180 mg/dL * 30 units for BSG > 180 mg/dL * Bolus insulin * NovoLog per scale ACHS or Q6hrs while NPO * Goal Range: Low 110 mg/dL - High 140 mg/dL * Correction Factor: 20 mg/dL/unit * Nutritional / Prandial insulin per carb ratio of 1 unit per 7 grams CHO consumed
--- NOTE | 2022-08-01 13:33 | Anesthesiology Consultation ---
Date of Service August 01, 2022 Assessment & Plan Chart Review Chart Review: ring stamper initiated History Surgery Operation Date: 08/01/22 12:05 Proposed Procedures p Left Infratemporal Fossa Abscess Incison and Drainage - Cale Maria, ANGELI Height/Weight Height: 5 ft 7 in Weight: 116.3 kg Allergies Allergy/AdvReac Type Severity Reaction Status Date / Time codeine Allergy Intermediate Severe Verified 07/31/22 11:02 [From Tylenol-Codeine #3] migraines fluconazole [From Diflucan] Allergy Intermediate Diffuse Verified 07/31/22 11:02 hives, itchy latex Allergy Intermediate Lip Verified 07/31/22 11:02 swelling pravastatin Allergy Intermediate Hives Verified 07/31/22 11:02 simvastatin Allergy Intermediate Hives Verified 07/31/22 11:02 doxycycline Allergy Mild Rash Verified 07/31/22 11:02 erythromycin base Allergy Mild Rash Verified 07/31/22 11:02 prednisone Allergy Mild Rash Verified 07/31/22 11:02 empagliflozin AdvReac Mild Yeast Verified 07/31/22 11:02 [From Jardiance] infection, worsening mood hydrocodone AdvReac Mild Severe Verified 07/31/22 11:02 headache Penicillins AdvReac Mild Rash Verified 07/31/22 11:02 Medications Home Medications Medication Instructions Recorded Confirmed Last Taken cyanocobalamin (vitamin B-12) 2,500 mcg PO QAM 08/30/19 07/31/22 07/31/22 2,500 mcg tablet Oxygen Home #1 ea 12/19/20 07/31/22 Unknown potassium 99 mg tablet 99 mg PO BID 03/07/21 07/31/22 07/31/22 guaifenesin 600 mg tablet, 600 mg PO BID 08/01/21 07/31/22 07/31/22 extended release 12 hr (Mucinex) metformin 500 mg tablet 1,000 mg PO BID #360 tabs 09/17/21 07/31/22 07/31/22 ondansetron HCl 8 mg tablet 8 mg PO Q8H PRN nausea and 10/24/21 07/31/22 11/07/21 21:00 vomiting #30 tabs aspirin 81 mg tablet,delayed 81 mg PO BID 10/31/21 07/31/22 07/31/22 release benzonatate 200 mg capsule 200 mg PO TID PRN Cough 10/31/21 07/31/22 Unknown ibuprofen 200 mg capsule 400 mg PO Q6H PRN Pain 11/08/21 07/31/22 02/13/22 08:00 ciclesonide 160 mcg/actuation 1 puff inhalation BID #6.1 grams 01/14/22 07/31/22 07/31/22 aerosol inhaler (Alvesco) azelastine 205.5 mcg (0.15 %) 2 spray intranasal QAM 01/28/22 07/31/22 07/31/22 nasal spray loratadine 10 mg chewable tablet 10 mg PO HS 02/07/22 07/31/22 07/30/22 (Claritin) montelukast 10 mg tablet 10 mg PO HS 02/07/22 07/31/22 07/30/22 (Singulair) bupropion HCl 200 mg tablet,12 hr 200 mg PO BID 02/14/22 07/31/22 07/31/22 sustained-release (Wellbutrin SR) phenazopyridine 200 mg tablet 200 mg PO Q8H PRN pain #10 tabs 02/14/22 07/31/22 Unknown (Pyridium) blood sugar diagnostic (OneTouch #150 ea 02/21/22 07/31/22 Unknown Verio test strips) blood-glucose meter (OneTouch #1 ea 02/21/22 07/31/22 Unknown Verio IQ Meter kit) lancets 33 gauge (OneTouch Delica #200 ea 02/21/22 07/31/22 Unknown Lancets) levalbuterol tartrate 45 2 inh inhalation BID #15 grams 03/01/22 07/31/22 07/31/22 mcg/actuation aerosol inhaler (Xopenex HFA) lorazepam 0.5 mg tablet 0.5 mg PO Q6H PRN anxiety #30 tabs 03/10/22 07/31/22 05/27/22 05:30 diclofenac sodium 1 % topical gel 4 g topical BID PRN Pain #100 grams 03/11/22 07/31/22 Unknown (Voltaren Arthritis Pain) furosemide 20 mg tablet 20 mg PO QAM #90 tabs 03/11/22 07/31/22 07/31/22 metoprolol tartrate 50 mg tablet 75 mg PO BID #270 tabs 03/11/22 07/31/22 07/31/22 spironolactone 100 mg tablet 50 mg PO BID #90 tabs 03/11/22 07/31/22 07/31/22 (Aldactone) ascorbic acid (vitamin C) 1,000 mg 1 g PO DAILY 03/27/22 07/31/22 07/31/22 tablet nystatin 100,000 unit/mL oral 5 ml PO QID PRN thrush #200 mL 04/08/22 07/31/22 Unknown suspension pen needle, diabetic 31 gauge x #100 ea 04/19/22 07/31/22 Unknown 3/16" (BD Ultra-Fine Mini Pen Needle) celecoxib 200 mg capsule (Celebrex) 200 mg PO BID #60 caps 05/06/22 07/31/22 07/31/22 insulin detemir U-100 100 unit/mL 75 - 100 unit subcut QPM 05/16/22 07/31/22 07/30/22 (3 mL) subcutaneous pen (Levemir FlexTouch U-100 Insulin) blood sugar diagnostic (Accu-Chek 06/05/22 07/31/22 Unknown Guide test strips) sumatriptan succinate 100 mg 100 mg PO UD PRN Migraine Headache 06/06/22 07/31/22 Unknown tablet (Imitrex) #10 tabs omeprazole 20 mg capsule,delayed 20 mg PO BID #60 caps 06/24/22 07/31/22 07/31/22 release semaglutide 2 mg/dose (8 mg/3 mL) 2 mg (0.75 mL) subcut Q7D #9 mL 07/09/22 07/31/22 07/27/22 subcutaneous pen injector azithromycin 250 mg tablet See Rx Instructions .Route .COMPLEX 07/31/22 07/31/22 07/31/22 tamsulosin 0.4 mg capsule 0.4 mg PO HS PRN Stent replacement 07/31/22 07/31/22 Unknown surgery Active Medications Generic Name Dose Route Start Last Admin Trade Name Freq PRN Reason Stop Dose Admin Bupropion HCl 200 mg 07/31/22 21:45 08/01/22 10:08 Bupropion Sr 100 Mg Tabcr PO 08/30/22 21:44 200 mg BID GIANNA Administration Fluticasone Furoate 1 puffs 08/01/22 09:00 08/01/22 10:17 Fluticasone Furoate 200mcg 14 Puffs/Inhaler INH 08/31/22 08:59 Not Given DAILY GIANNA Furosemide 20 mg 08/01/22 09:00 08/01/22 10:08 Furosemide 20 Mg Tab PO 08/31/22 08:59 20 mg QAM GIANNA Administration Guaifenesin 600 mg 07/31/22 21:45 08/01/22 10:08 Guaifenesin 600 Mg Tabcr PO 08/30/22 21:44 600 mg BID GIANNA Administration Metronidazole 500 mg in 100 mls @ 100 mls/hr 08/01/22 02:00 08/01/22 11:11 Flagyl IV 08/11/22 01:59 Infused Q8H GIANNA Infusion Protocol Acetaminophen 1,000 mg in 100 mls @ 400 mls/hr 08/01/22 10:19 08/01/22 11:42 Ofirmev IV 08/04/22 10:18 Infused Q8H PRN Infusion pain, fever or headache Insulin Aspart 0 units 08/01/22 06:00 08/01/22 06:17 Insulin Aspart Per Unit Charge SC 08/31/22 05:59 Not Given Q6 GIANNA Levalbuterol HCl 2 puffs 07/31/22 21:45 08/01/22 07:07 Levalbuterol Tartrate 15 Gm Hfa.Aer.Ad INH 08/30/22 21:44 2 puffs BIDR GIANNA Administration Metoprolol Tartrate 75 mg 07/31/22 21:45 08/01/22 10:09 Metoprolol Tartrate 25 Mg Tab PO 08/30/22 21:44 75 mg BID GIANNA Administration Montelukast Sodium 10 mg 07/31/22 21:45 07/31/22 22:10 Montelukast Sodium 10 Mg Tablet PO 08/30/22 21:44 10 mg HS GIANNA Administration Morphine Sulfate 2 mg 07/31/22 21:45 08/01/22 03:52 Morphine Sulfate 2 Mg/Ml Carp IV 08/14/22 21:44 2 mg Q3H PRN Administration Pain (1,2,3,4,5) & Pre PT Ondansetron HCl 4 mg 07/31/22 21:45 08/01/22 11:15 Ondansetron Inj 2 Mg/Ml 2 Ml Vial IV 08/30/22 21:44 4 mg Q6H PRN Administration Nausea And Vomiting Pantoprazole Sodium 40 mg 08/01/22 09:00 08/01/22 10:08 Pantoprazole 40 Mg Tab PO 08/31/22 08:59 40 mg DAILY GIANNA Administration Spironolactone 50 mg 07/31/22 21:45 08/01/22 10:10 Spironolactone 25 Mg Tab PO 08/30/22 21:44 50 mg BID17 GIANNA Administration Past Medical History Medical History Anxiety and depression Asthma inhalers daily Atrial flutter, paroxysmal Follows with Dr Sherry Begum History of- no recurrence per cardio Chronic sinusitis Post nasal drip and cough since having Covid in 2020 Dyspnea on exertion Fatty liver GERD (gastroesophageal reflux disease) History of blood transfusion During 2020 admission (retroperitoneal hematoma) History of COVID-19 Dx 11/18/20 > hospitalized at [facility] until 01/02/21, d/c to [facility] health > residual ANDERSEN and dependence on supplemental oxygen 2L O2 Hypercholesterolemia Hypertension Pt stated her blood pressure is "usually normal, Metoprolol for her atrial flutter only" Hyperuricosuria Kidney stones Hx Migraine headache Obesity BMI 41.1 On home oxygen therapy 2 lpm continuous Proteinuria Recurrent UTI Retroperitoneal hematoma During 2020 admission for Covid Type 2 diabetes mellitus with insulin therapy Past Family History Family History Aunt Colorectal cancer Grandfather (Maternal) Prostate cancer Mother , age 55 of Pseudomonas sepsis Lupus Raynaud's disease Father , age 85 Clotting disorder Hypertension Peptic ulcer disease Other No family history of adverse response to anesthesia Denies family history of Ovarian cancer Myocardial infarction Breast cancer Past Surgical History Surgical History H/O oral surgery 07/2022 History of cardioversion 2009, [facility] History of colonoscopy History of cystoscopy Multiple--last 02/14/22 @ [facility] History of lithotripsy 09/03/2019: LMA#4. No issues per anesthesia postop progress note. History of myringotomy History of renal stent History of tonsillectomy and adenoidectomy History of transesophageal echocardiography (DASIA) S/P section X 1 S/P hernia surgery X 2 S/P ureteral stent placement Cystoscopy Retrograde Pyelogram, Ureteral Stent (05/10/21): MAC at [facility] S/P wisdom tooth extraction Social History Smoking Status: Never smoker Do You Dip or Chew Tobacco: No Hx Alcohol Use: No Alcohol type: wine and hard liquor alcohol intake frequency: holidays/special occasions only Hx Substance Use: No substance use type: does not use Physical Exam Vital Signs Last Vital Signs Temp 97.9 F 08/01/22 07:30 Pulse 84 08/01/22 07:30 Resp 18 08/01/22 07:30 BP 104/65 08/01/22 07:30 Pulse Ox 95 08/01/22 07:30 O2 Del Method Nasal Cannula 08/01/22 07:30 O2 Flow Rate 2 08/01/22 07:30 Testing Laboratory Results 08/01/22 07:44 08/01/22 07:44 08/01/22 06:00 POC Glucose 92 Chest X-Ray Date: 08/01/22 IMPRESSION: Mild pulmonary edema. Other Testing Electrocardiogram Date: 01/23/22 NSR Low voltage QRS Incomplete RBBB Nonspecific T wave abnormality Echocardiogram Date: 03/01/21 Normal biventricular systolic function Mild LVH Normal chamber dimensions No significant valvular abnormalities
[2022-08-01] MEDS ORDERED: PROCHLORPERAZINE 5 MG in SYRINGE 4 ML IV ONE (14:00)
[2022-08-01] MEDS ORDERED: SUMAtriptan succinate 100 MG TAB PO PRN (15:18)
[2022-08-01] MEDS ORDERED: PROPOFOL IV EMULSION 10 MG/ML 20 ML VIAL IV ONE (17:10)
[2022-08-01] MEDS ORDERED: LIDOCAINE 2% 2 ML VIAL/AMP(20MG/ML) INFIL ONE (17:10)
[2022-08-01] MEDS ORDERED: ONDANSETRON INJ 2 MG/ML 2 ML VIAL ONE (17:10)
[2022-08-01] MEDS ORDERED: fentaNYL citrate PF 100 MCG/2 ML VIAL ONE (17:10)
[2022-08-01] MEDS ORDERED: DEXAMETHASONE SOD INJ 4 MG/ML VIAL ONE (17:10)
[2022-08-01] MEDS ORDERED: MIDAZOLAM HCL 1 MG/ML 2ML VIAL ONE (17:10)
[2022-08-01] MEDS ORDERED: ATROPINE SULFATE 0.1 MG/ML 10ML SYR IV PRN (17:10)
[2022-08-01] MEDS ORDERED: ePHEDrine sulfate 50 MG/ML AMP IV PRN (17:10)
[2022-08-01] MEDS ORDERED: ONDANSETRON INJ 2 MG/ML 2 ML VIAL IV PRN (17:10)
[2022-08-01] MEDS ORDERED: CHLORHEXIDINE GLUCONATE 0.12% 480 ML MT ONE (17:12)
[2022-08-01] MEDS ORDERED: BUPIVACAINE/EPINEPHRINE 0.5% 1:200,000 1.8 ML CARP ONE ×2 (17:12→17:21)
--- NOTE | 2022-08-01 17:19 | History & Physical Bridge Note ---
Date of Service August 01, 2022 History & Physical Bridge Note I have examined the patient, reviewed the History & Physical and in the interval since the performance of the History & Physical I have noted the following changes of clinical significance: no changes noted OK for I&D as planned
[2022-08-01] MEDS ORDERED: SUCCINYLCHOLINE CHLORIDE 20 MG/ML 10 ML VIAL IV ONE (17:21)
[2022-08-01] MEDS ORDERED: cefTRIAXone SODIUM 2,000 MG in DEXTROSE 5% 50 ML IV SCH (18:00)
[2022-08-01] MEDS: fentaNYL citrate PF 100 MCG/2 ML VIAL IV PRN ×2 (18:25→18:30)
[2022-08-01] MEDS ORDERED: HYDROmorphone INJ 1 MG/ML SYRINGE ONE ×2 (18:30→18:42)
[2022-08-01] MEDS ORDERED: HYDROmorphone INJ 0.5 MG/0.5 ML SYR IV PRN (18:47)
--- NOTE | 2022-08-01 18:56 | Anesthesiology Progress Note ---
Date of Service August 01, 2022 Anesthesia Post Procedure Vital Signs Vital Signs: Temp Pulse Pulse Pulse Pulse Resp BP 08/01/22 18:45 70 15 121/88 08/01/22 18:35 67 20 114/73 08/01/22 18:25 75 15 130/90 08/01/22 18:19 36.8 C 74 13 127/86 08/01/22 17:14 36.3 C L 86 18 111/77 08/01/22 08:00 08/01/22 15:34 36.9 C 77 16 125/81 08/01/22 07:30 36.6 C 84 18 104/65 08/01/22 07:08 78 16 07/31/22 23:15 95 H 16 07/31/22 21:47 07/31/22 21:46 37.3 C 96 H 18 07/31/22 21:20 90 07/31/22 20:00 93 H 20 BP Pulse Ox O2 Del Method O2 Flow Rate 08/01/22 18:45 100 Nasal Cannula 4 08/01/22 18:35 100 Nasal Cannula 4 08/01/22 18:25 100 Nasal Cannula 4 08/01/22 18:19 97 Oxymask 6 08/01/22 17:14 92 Room Air 08/01/22 08:00 Room Air 08/01/22 15:34 96 Nasal Cannula 2 08/01/22 07:30 95 Nasal Cannula 2 08/01/22 07:08 96 Nasal Cannula 2 07/31/22 23:15 97 Nasal Cannula 2 07/31/22 21:47 Room Air, Nasal Cannula 2 07/31/22 21:46 142/85 H 95 Nasal Cannula 2 07/31/22 21:20 07/31/22 20:00 116/64 96 Room Air Pain Intensity Head: Pain Intensity: 6 Left Mouth: Pain Intensity: 9 Transfer of Care Handoff Completed per policy Notes Mental Status: alert / awake / arousable and participated in evaluation Patient Amnestic to Procedure: Yes Nausea / Vomiting: adequately controlled Pain: adequately controlled Airway Patency, RR, SpO2: stable & adequate BP & HR: stable & adequate Hydration State: stable & adequate Anesthetic Complications: no major complications apparent
[2022-08-01] MEDS: MONTELUKAST SODIUM 10 MG TABLET PO SCH (20:33)
[2022-08-01] MEDS: CICLESONIDE INH SCH (20:35)
[2022-08-01] MEDS ORDERED: LANTUS PER UNIT CHARGE SQ SCH (21:00)
[2022-08-01] MEDS: MoRPHine SULFATE 4 MG/ML 1 ML CARP\\VIAL IV PRN (21:23)
[2022-08-02] MEDS: metroNIDAZOLE 500 MG/100 ML BAG IV SCH ×2 (01:06→10:41)
[2022-08-02] MEDS: MoRPHine SULFATE 4 MG/ML 1 ML CARP\\VIAL IV PRN ×2 (04:17→07:34)
[2022-08-02] MEDS: LEVALBUTEROL TARTRATE 15 GM HFA.AER.AD INH SCH ×2 (07:48→19:42)
[2022-08-02 07:50] LABS: Basophils # (auto) 0.03 K/uL (0-0.2); Basophils % (auto) 0.3 %; Eosinophils # (auto) 0.19 K/uL (0-0.50); Eosinophils % (auto) 1.8 %; Hematocrit (blood only) 38.1 % (37.0-47.0); Hemoglobin 12.3 g/dl (12.0-16.0); Immature Granulocytes # (auto) 0.06 K/uL (0.01-0.20); Immature Granulocytes % (auto) 0.6 %; Lymphocytes # (auto) 1.84 K/uL (1.2-3.4); Lymphocytes % (auto) 17.1 %; Mean Corpuscular Hgb Conc 32.3 g/dL (32.0-36.0); Mean Corpuscular Volume 86.8 fL (80.0-100.0); Mean Platelet Volume 8.9 fL (9.4-12.4); Monocytes # (auto) 1.08 K/uL (0.11-0.59); Neutrophils # (auto) 7.55 K/uL (1.40-6.50); Neutrophils % (auto) 70.2 %; Platelet Count 256 K/uL (130-400); RDW Coefficient of Variation 16.4 % (11.5-14.5); RDW Standard Deviation 52.5 fL (36.4-46.3); Red Blood Count 4.39 M/uL (4.20-5.40); White Blood Count 10.75 K/ul (4.8-10.8)
[2022-08-02 08:02] LABS: Albumin Globulin Ratio 1.3 (0.9-2); Albumin Level 3.8 gm/dl (3.4-5.0); BUN Creatinine Ratio 13.6 (10-20); Bilirubin,Total 0.2 mg/dl (0.2-1.0); Calcium 9.5 mg/dl (8.6-10.3); Creatinine Clr Calc Pharmacy 126.9 ml/min; Est GFR (African American) 115.3 ml/min; Est GFR (Non-African American) 99.4 ml/min; Magnesium 1.9 mg/dl (1.7-2.4); Potassium 4.2 mmol/L (3.5-5.1); Total Protein 6.8 gm/dl (6.0-8.3)
--- NOTE | 2022-08-02 08:14 | Hospitalist Progress Note ---
Date of Service August 02, 2022 Assessment & Plan (1) Abscess, dental: Plan: 56yo female with recent root canal performed on left wisdom tooth presenting with pain, swelling and redness of the left face. Recent root canal last Friday/finished with Dr Uriarte in [facility] and was on Azithromycin given allergies for suspected infection CT imaging on admission w/ 1.9 x 1.3cm rim-enhancing collection of the left face along the lateral aspect of the maxilla suggestive of a small abscess. Dr Maria consulted On Ceftriaxone/Flagyl on admission No bcx drawn on admission, added but noting had already been on abx POD#1 s/p LEFT infratemporal fossa abscess I&D Dr Maria 08/01. Cx from OR pending WBC improved, stable. Afebrile Prior allergy/immunology skin testing for PCN NEGATIVE, recs for zyrtec BID w/ meds if needed to prevent issues Discussed w/ patient and will transition to PO Augmentin BID for today with cetirizine 10mg BID and monitoring overnight for any issues Warm compress Pain control -- added PO tramadol to see if effective today Repeat sleep study overnight for likely underlying JIMY Monitor labs/exam on repeat Outpatient f/u Dr Maria this upcoming week for drain removal FridayAugust 05 at 1pm (2) Type 2 diabetes mellitus with insulin therapy: Plan: Patient with well controlled DM. Last HgbA1C on 01/17/22 = 5.3. She follows with [facility], last seen 06/01/22. Outpatient meds: Ozempic, Metformin and basal insulin - Levimir 60-75u daily. Holding metformin/ozempic while inpatient continue lantus 10u BID w/ ISS for now -- pharmacy on consult for glycemic management BSGs acceptable and will monitor (3) Hypertension: Plan: Chronic. Stable. Mildly elevated on admission in setting of pain and improved Pain improving w/ abx as above Spironolactone/lasix to be resumed, renal function stable on AM labs (4) GERD (gastroesophageal reflux disease): Plan: Chronic. Stable Protonix 40mg po daily while inpatient (5) Kidney stones: Plan: Patient with renal stents in place. Last exchanged in May. She is to followup with Urology next week to discuss future plans -Monitor (6) Atrial flutter, paroxysmal: Plan: Remote history of such. -Continue Metoprolol 75mg po BID -No anticoagulation (7) Asthma: Plan: Chronic, stable Continue home alvesco -- ordered for her to send hers down for pharmacy to relabel/use as reports issues w/ formulary in past Continue xopenex BID, mucinex, singulair Using O2 HS and not anymore during the day ?combination ASthma/obstructive sleep apnea/restrictive lung disease given obesity Overnight pulse ox for eval, outpt f/u CXR w/ mild pulm edema, given lasix AM surgery, now on room air She is wanting to hold off any repeat CXR, lungs stable on exam Order for her alvesco to keep at bedside as takes BID and brushes teeth followi ng and issues w/ being given overnight 94% on RA Monitor for any issues Plan switch to Augmentin/zrytec, monitor OR culture likely dc tomorrow if no issues w/ PO abx/pain medications f/u Dr Maria August 05 Admission and Anticipated Discharge Date Admission Date: July 31, 2022 Supervising Physician Co-Signing Physician Notes The patient was not seen by me. The chart was reviewed. Case discussed with CLARE Vivar. Agree with assessment and plan Subjective patient evaluated this morning doing better than last night as didnt get to OR until 5/back to room until 9 and w/ vomiting/intolerance to PO intake better intake today, pain controlled w/ IV. Discussed tramadol - thinks tolerated in the past without issue and will order wanting to shower/heat to face repeat sleep study tonight as had a rough night w/ n/v prior on room air currently discussed switching to Augmentin given prior allergy testing for PCN negative and zrytec BID in meantime. Patient agreeable to plan and wanting to stay overnight/monitor progress/monitor cultures and possible dc tomorrow with outpt f/u Dr Maria this upcoming week. No fever/chills. Questions/concerns addressed at this time. Review of Systems Review of Systems: All systems reviewed & are unremarkable except as noted in HPI & below Physical Exam Physical Exam: General: WD/WN obese female sitting up in bed, NAD HEENT: head normocephalic, atraumatic, pupils equal in size +swelling to LEFT face DECREASED, +less tenderness to palpation over LEFT cheek/neck anterior/laterally , decreased erythema decreased swelling buccal mucosa, drain in place, increased ability to open mouth no stridor Resp: diminished in the bases, faint expiratory wheezing, no rales, on room air CV: RRR, no significant m/r/g, no pitting edema/calf tenderness GI: +BS, soft/NT ; no meyer MSK/Neuro: no focal deficit, follows commands, strength intact bilaterally Psych: AOx3, cooperative with exam Results & Data Results & Data Vital Signs (Past 12 Hours) Vital Signs Temp Pulse Resp BP Pulse Ox O2 Del Method O2 Flow Rate 08/02/22 07:49 77 14 94 Nasal Cannula 2 08/02/22 07:43 36.8 C 81 16 102/72 96 Nasal Cannula 2 08/02/22 03:00 36.8 C 83 18 112/73 98 Room Air 08/01/22 22:30 36.8 C 79 18 133/86 97 Room Air 08/01/22 21:30 36.1 C L 80 18 114/56 L 98 Nasal Cannula 4 08/01/22 20:30 37.0 C 77 14 108/71 97 Nasal Cannula 4 Laboratory Results 08/02/22 08/02/22 08/02/22 Range/Units 08:07 06:41 06:41 WBC 10.75 (4.8-10.8) K/ul RBC 4.39 (4.20-5.40) M/uL Hgb 12.3 (12.0-16.0) g/dl Hct 38.1 (37.0-47.0) % MCV 86.8 (80.0-100.0) fL MCH 28.0 (25.0-34.0) pg MCHC 32.3 (32.0-36.0) g/dL RDW Std Deviation 52.5 H (36.4-46.3) fL RDW Coeff of Sheridan 16.4 H (11.5-14.5) % Plt Count 256 (130-400) K/uL MPV 8.9 L (9.4-12.4) fL Immature Gran % (Auto) 0.6 % Neut % (Auto) 70.2 % Lymph % (Auto) 17.1 % Desha % (Auto) 10.0 % Eos % (Auto) 1.8 % Baso % (Auto) 0.3 % Neut # (Auto) 7.55 H (1.40-6.50) K/uL Lymph # (Auto) 1.84 (1.2-3.4) K/uL Desha # (Auto) 1.08 H (0.11-0.59) K/uL Eos # (Auto) 0.19 (0-0.50) K/uL Baso # (Auto) 0.03 (0-0.2) K/uL Immature Gran # (Auto) 0.06 (0.01-0.20) K/uL Sodium 138 (136-145) mmol/L Potassium 4.2 (3.5-5.1) mmol/L Chloride 104 (98-107) mmol/L Carbon Dioxide 28 (21-32) mmol/L Anion Gap 6 (3-11) BUN 9 (6-23) mg/dl Creatinine 0.66 (0.6-1.2) mg/dl Est Cr Clr Drug Dosing 126.9 ml/min Est GFR ( Amer) 115.3 ml/min Est GFR (Non-Af Amer) 99.4 ml/min BUN/Creatinine Ratio 13.6 (10-20) Glucose 103 H (70-99(Fasting)) mg/dl POC Glucose 86 (70-99) mg/dl Calcium 9.5 (8.6-10.3) mg/dl Magnesium 1.9 (1.7-2.4) mg/dl Total Bilirubin 0.2 (0.2-1.0) mg/dl AST 22 (13-39) U/L ALT 34 (7-52) U/L Alkaline Phosphatase 82 (34-104) U/L Total Protein 6.8 (6.0-8.3) gm/dl Albumin 3.8 (3.4-5.0) gm/dl Globulin 3.0 (2.5-4.0) gm/dl Albumin/Globulin Ratio 1.3 (0.9-2) 08/01/22 08/01/22 08/01/22 Range/Units 21:34 18:24 14:11 WBC (4.8-10.8) K/ul RBC (4.20-5.40) M/uL Hgb (12.0-16.0) g/dl Hct (37.0-47.0) % MCV (80.0-100.0) fL MCH (25.0-34.0) pg MCHC (32.0-36.0) g/dL RDW Std Deviation (36.4-46.3) fL RDW Coeff of Sheridan (11.5-14.5) % Plt Count (130-400) K/uL MPV (9.4-12.4) fL Immature Gran % (Auto) % Neut % (Auto) % Lymph % (Auto) % Desha % (Auto) % Eos % (Auto) % Baso % (Auto) % Neut # (Auto) (1.40-6.50) K/uL Lymph # (Auto) (1.2-3.4) K/uL Desha # (Auto) (0.11-0.59) K/uL Eos # (Auto) (0-0.50) K/uL Baso # (Auto) (0-0.2) K/uL Immature Gran # (Auto) (0.01-0.20) K/uL Sodium (136-145) mmol/L Potassium (3.5-5.1) mmol/L Chloride (98-107) mmol/L Carbon Dioxide (21-32) mmol/L Anion Gap (3-11) BUN (6-23) mg/dl Creatinine (0.6-1.2) mg/dl Est Cr Clr Drug Dosing ml/min Est GFR ( Amer) ml/min Est GFR (Non-Af Amer) ml/min BUN/Creatinine Ratio (10-20) Glucose (70-99(Fasting)) mg/dl POC Glucose 159 H 146 H 99 (70-99) mg/dl Calcium (8.6-10.3) mg/dl Magnesium (1.7-2.4) mg/dl Total Bilirubin (0.2-1.0) mg/dl AST (13-39) U/L ALT (7-52) U/L Alkaline Phosphatase (34-104) U/L Total Protein (6.0-8.3) gm/dl Albumin (3.4-5.0) gm/dl Globulin (2.5-4.0) gm/dl Albumin/Globulin Ratio (0.9-2) PG Care Time/CCT Total # of Minutes Spent Total Time Spent with Patient: Total time spent is greater than 50% in coordination of care (as documented) at patient's floor/unit and/or counseling patient: Coding Level of Care Code 77700 SUB INP/OBS CARE 50MIN Diagnoses Abscess, dental K04.7 Type 2 diabetes mellitus with insulin therapy E11.9; Z79.4 Hypertension I10 GERD (gastroesophageal reflux disease) K21.9 Kidney stones N20.0 Atrial flutter, paroxysmal I48.92 Asthma J45.909
[2022-08-02] MEDS: INSULIN ASPART PER UNIT CHARGE SC SCH ×4 (09:18→20:33)
[2022-08-02] MEDS: buPROPion SR 100 MG TABCR PO SCH ×2 (09:23→20:58)
[2022-08-02] MEDS: guaiFENesin 600 MG TABCR PO SCH ×2 (09:23→20:58)
[2022-08-02] MEDS: PANTOprazole 40 MG TAB PO SCH ×2 (09:23→20:57)
[2022-08-02] MEDS: CICLESONIDE INH SCH ×2 (09:24→21:04)
--- NOTE | 2022-08-02 09:24 | Oral/Maxillofacial Progress Nt ---
Date of Service August 02, 2022 Assessment & Plan Admission and Anticipated Discharge Date Admission Date: July 31, 2022 Subjective Post Op infection evaluation 24 hours The infected area is draining well Swelling is almost gone and the tissue is healing well slight drainage is noted. Drain to be removed at 1 pm my office of August 05 Cultures pending Infection has responded very well to the antibiotics and the I and D. Opening much better, softer swelling, less pain I requested that the patient continue with massage, heat and wound care. At this time the area is well healed and responded well to treatment. OK for D/C consider Augmentin for 10 days, pain meds as needed Follow up with Dr Maria FridayAugust 05 at 1 for drain removal--I called Rosalie with this information.. Results & Data Vital Signs (Past 12 Hours) Vital Signs Temp Pulse Resp BP Pulse Ox O2 Del Method O2 Flow Rate 08/02/22 07:49 77 14 94 Nasal Cannula 2 08/02/22 07:43 36.8 C 81 16 102/72 96 Nasal Cannula 2 08/02/22 03:00 36.8 C 83 18 112/73 98 Room Air 08/01/22 22:30 36.8 C 79 18 133/86 97 Room Air 08/01/22 21:30 36.1 C L 80 18 114/56 L 98 Nasal Cannula 4 PG Care Time/CCT Total # of Minutes Spent Total Time Spent with Patient: Total time spent is greater than 50% in coordination of care (as documented) at patient's floor/unit and/or counseling patient: Coding Level of Care Code None Diagnoses
[2022-08-02] MEDS: METOPROLOL TARTRATE 25 MG TAB PO SCH ×2 (09:25→20:57)
[2022-08-02] MEDS: AMOXICILLIN/CLAVULANATE 875 MG TAB PO SCH ×2 (11:35→18:09)
[2022-08-02] MEDS: CETIRIZINE HCL 10 MG TABLET PO SCH ×2 (11:36→20:59)
--- NOTE | 2022-08-02 12:22 | Pharmacy Report ---
Pharmacy Glycemic Short Note 2 - Date of Service August 02, 2022 - Glycemic Short BSG Results (Last 24 hours): 08/01/22 08/01/22 08/01/22 14:11 18:24 21:34 Glucose POC Glucose 99 146 H 159 H 08/02/22 08/02/22 08/02/22 06:41 08:07 11:58 Glucose 103 H POC Glucose 86 102 H OUTPATIENT ANTIDIABETIC REGIMEN: * Semaglutide * Metformin * Levemir 60-75 units daily (dose per Mentally Impaired Teacher visit, 06/01/22) * A1c = 5.3% ASSESSMENT: * Patient's BSGs yesterday [phone] mg/dL. Patient received 26 units of insulin (25 units of basal and 1 unit of bolus). * Patient has diet ordered today. She continues on Augmentin for facial infection. * Will reduce basal to 20 units as fasting slightly decreased today is 86 mg/dL. * Loosen Novolog. BACKGROUND * Rosalie is a 56 yo T2DM admitted with dental abscess. * Current A1c indicates excellent outpatient glycemic control. * Patient is currently NPO pending possible abscess drainage later today. * She was given a dose of Lantus 20 units last evening. Fasting BSG of 92 mg/dL this AM. Held off on ordering AM basal insulin to ensure BSG not continuing to trend down. * Lunch BSG of 99 mg/dL. Will resume basal insulin at HS. PLAN FOR INPATIENT GLYCEMIC CONTROL: * Hold outpatient oral diabetes medications * Basal insulin * Lantus 20 units SQ HS * Bolus insulin * NovoLog per scale ACHS or Q6hrs while NPO * Goal Range: Low 110 mg/dL - High 140 mg/dL * Correction Factor: 25 mg/dL/unit * Nutritional / Prandial insulin per carb ratio of 1 unit per 8 grams CHO consumed
[2022-08-02] MEDS: NYSTATIN CR 15 GM TUBE EXT SCH (18:11)
[2022-08-02] MEDS: ASPIRIN 81 MG ECTAB PO SCH (20:57)
[2022-08-02] MEDS: MONTELUKAST SODIUM 10 MG TABLET PO SCH (20:58)
[2022-08-02] MEDS ORDERED: LANTUS PER UNIT CHARGE SQ SCH (21:00)
[2022-08-02] MEDS: traMADol HCL 50 MG TABLET PO PRN (21:03)
[2022-08-03] MEDS: traMADol HCL 50 MG TABLET PO PRN (03:03)
[2022-08-03 06:21] LABS: Basophils # (auto) 0.05 K/uL (0-0.2); Basophils % (auto) 0.6 %; Eosinophils # (auto) 0.45 K/uL (0-0.50); Eosinophils % (auto) 5.2 %; Hematocrit (blood only) 40.2 % (37.0-47.0); Hemoglobin 12.9 g/dl (12.0-16.0); Immature Granulocytes # (auto) 0.04 K/uL (0.01-0.20); Immature Granulocytes % (auto) 0.5 %; Lymphocytes # (auto) 3.03 K/uL (1.2-3.4); Lymphocytes % (auto) 34.9 %; Mean Corpuscular Hemoglobin 28.1 pg (25.0-34.0); Mean Corpuscular Hgb Conc 32.1 g/dL (32.0-36.0); Mean Corpuscular Volume 87.6 fL (80.0-100.0); Mean Platelet Volume 8.7 fL (9.4-12.4); Monocytes # (auto) 0.93 K/uL (0.11-0.59); Monocytes % (auto) 10.7 %; Neutrophils # (auto) 4.17 K/uL (1.40-6.50); Neutrophils % (auto) 48.1 %; Platelet Count 272 K/uL (130-400); RDW Coefficient of Variation 16.5 % (11.5-14.5); RDW Standard Deviation 52.8 fL (36.4-46.3); Red Blood Count 4.59 M/uL (4.20-5.40); White Blood Count 8.67 K/ul (4.8-10.8)
[2022-08-03 06:41] LABS: BUN Creatinine Ratio 11.8 (10-20); Calcium 9.8 mg/dl (8.6-10.3); Creatinine Clr Calc Pharmacy 110.2 ml/min; Est GFR (African American) 102.3 ml/min; Est GFR (Non-African American) 88.3 ml/min; Magnesium 1.9 mg/dl (1.7-2.4); Potassium 4.1 mmol/L (3.5-5.1)
[2022-08-03] MEDS: LEVALBUTEROL TARTRATE 15 GM HFA.AER.AD INH SCH (07:23)
[2022-08-03] MEDS: CETIRIZINE HCL 10 MG TABLET PO SCH (08:47)
[2022-08-03] MEDS: AMOXICILLIN/CLAVULANATE 875 MG TAB PO SCH (08:47)
[2022-08-03] MEDS: ASPIRIN 81 MG ECTAB PO SCH (08:47)
[2022-08-03] MEDS: NYSTATIN CR 15 GM TUBE EXT SCH (08:48)
[2022-08-03] MEDS: guaiFENesin 600 MG TABCR PO SCH (08:48)
[2022-08-03] MEDS: buPROPion SR 100 MG TABCR PO SCH (08:48)
[2022-08-03] MEDS: FUROSEMIDE 20 MG TAB PO SCH (08:48)
[2022-08-03] MEDS: SPIRONOLACTONE 25 MG TAB PO SCH (08:48)
[2022-08-03] MEDS: PANTOprazole 40 MG TAB PO SCH (08:48)
[2022-08-03] MEDS: CICLESONIDE INH SCH (08:48)
[2022-08-03] MEDS: INSULIN ASPART PER UNIT CHARGE SC SCH ×2 (09:04→13:09)
[2022-08-03] MEDS: MoRPHine SULFATE 4 MG/ML 1 ML CARP\\VIAL IV PRN ×2 (09:33→13:33)
[2022-08-03] MEDS: METOPROLOL TARTRATE 25 MG TAB PO SCH (09:34)
--- NOTE | 2022-08-03 12:53 | Discharge Summary ---
Date of Service August 03, 2022 Admission HPI Per Admitting Provider Rosalie Mccormack is a pleasant 56-year-old female presenting with left facial pain and swelling. Patient had a root canal performed on the top left wisdom tooth on 07/25/[address] Uriarte. She reports having significant swelling and pain following the procedure. She contacted her dentist on 07/29/22 with these complaints of progressive left facial pain and swelling. She was prescribed a course of Azithromycin which she started on the evening of 07/29/22. Patient reports progressive pain and swelling as well as firmness to her left cheek. She has discomfort in her left neck, cheek, chin and a headache. She has been taking Ibuprofen at home with some relief to her discomfort. She has had some chills and mild nausea, otherwise denies fever, chest pain, cough, SOB, vomiting, diarrhea. Denies stridor or difficulty swallowing. No additional complaints at this time. She is unable to fully open her mouth. In the ER she is afebrile, HD stable. In pain, reported to be 10/10 at present. ER Course: Ceftriaxone 2gm IV Flagyl 500mg IV Fentanyl 50mcg x 2 doses Morphine 4mg IV Zofran 4mg IV NSS x 1L Principal Diagnosis Left maxillary dental abscess Discharge Exam General-alert and oriented x3, no fevers, no chills HEENT-resolving left maxillary edema and erythema, pupils equal and reactive to light, extraocular muscles intact Neck-no lymphadenopathy or thyromegaly, trachea midline Chest-clear to auscultation percussion. No rales wheezing or rhonchi Cardiac-regular rate and rhythm, normal S1 and S2 Abdomen-normal bowel sounds, nontender, no hepatosplenomegaly Extremities-no cyanosis, clubbing, or edema Neuro-cranial nerves II through XII intact, motor and sensory function within normal limits, strength symmetrical , no focal deficits Psych-normal affect, normal mood Discharge Data Allergies Allergy/AdvReac Type Severity Reaction Status Date / Time codeine Allergy Intermediate Severe Verified 07/31/22 11:02 [From Tylenol-Codeine #3] migraines fluconazole [From Diflucan] Allergy Intermediate Diffuse Verified 07/31/22 11:02 hives, itchy latex Allergy Intermediate Lip Verified 07/31/22 11:02 swelling pravastatin Allergy Intermediate Hives Verified 07/31/22 11:02 simvastatin Allergy Intermediate Hives Verified 07/31/22 11:02 doxycycline Allergy Mild Rash Verified 07/31/22 11:02 erythromycin base Allergy Mild Rash Verified 07/31/22 11:02 prednisone Allergy Mild Rash Verified 07/31/22 11:02 empagliflozin AdvReac Mild Yeast Verified 07/31/22 11:02 [From Jardiance] infection, worsening mood hydrocodone AdvReac Mild Severe Verified 07/31/22 11:02 headache Penicillins AdvReac Mild Rash Verified 07/31/22 11:02 Consultations 07/31/22 19:44 ED Decision to Admit Stat 07/31/22 19:56 Consult Oromaxillofacial Surgery Routine Procedures Performed Operation Date: 08/01/22 12:05 Actual Procedures p Left Infratemporal Fossa Abscess Incison and Drainage(Left) - Cale Maria, DMD Ordered Studies 07/31/22 16:28 CT soft tissue neck w con Stat 07/31/22 16:32 CT head/brain wo con Stat Hospital Course (1) Abscess, dental: 56yo female with recent root canal performed on left wisdom tooth presenting with pain, swelling and redness of the left face. Recent root canal last Friday/finished with Dr Uriarte in [facility] and was on Azithromycin given allergies for suspected infection CT imaging on admission w/ 1.9 x 1.3cm rim-enhancing collection of the left face along the lateral aspect of the maxilla suggestive of a small abscess. Dr Maria consulted On Ceftriaxone/Flagyl on admission No bcx drawn on admission, added but noting had already been on abx POD#1 s/p LEFT infratemporal fossa abscess I&D Dr Maria 08/01. Cx from OR pending WBC improved, stable. Afebrile Prior allergy/immunology skin testing for PCN NEGATIVE, recs for zyrtec BID w/ meds if needed to prevent issues Discussed w/ patient and transitioned to Augmentin twice daily on August 02. Warm compress Pain control -- tramadol Outpatient f/u Dr Maria this upcoming week for drain removal FridayAugust 05 at 1pm (2) Type 2 diabetes mellitus with insulin therapy: Patient with well controlled DM. Last HgbA1C on 01/17/22 = 5.3. She follows with [employer], last seen 06/01/22. Outpatient meds: Ozempic, Metformin and basal insulin - Levimir 60-75u daily. Holding metformin/ozempic while inpatient. Restart at discharge continue lantus 10u BID w/ ISS for now -- pharmacy on consult for glycemic management (3) Hypertension: Chronic. Stable. Mildly elevated on admission in setting of pain and improved (4) GERD (gastroesophageal reflux disease): Chronic. Stable Protonix 40mg po daily while inpatient (5) Kidney stones: Patient with renal stents in place. Last exchanged in May. She is to followup with Urology next week to discuss future plans (6) Atrial flutter, paroxysmal: Remote history. Continue Metoprolol 75mg po BID. No anticoagulation (7) Asthma: Chronic, stable . Continue home alvesco . Treated while hospitalized with xopenex BID, mucinex, singulair. Using O2 at bedtime only . Plan Home today, August 03, on Augmentin. Follow-up with Dr. Maria on August 05 for drain removal Total Time Total Time Spent Total Time Spent (In Minutes): 40 minutes Discharge Plan Discharge Items Patient Disposition: Home - Self-Care Reason For Visit: LEFT FACIAL ABSCESS Discharge Diagnosis: s/p I&D infratemporal abscess left maxillary area Activity: Resume your previous activity Bathing: No limitations Exercise/Sports: Gradually increase as tolerated Driving/Machine Use: Resume 1 day after discharge Weightbearing: Full weightbearing Non-emergency contact: Primary Care Provider and Surgeon Call non-emergency contact if: you have any medication questions and your wound has increased drainage Follow-up/Referrals: Ankita Tony MD [Primary Care Provider] - Cale Maria DMD [Physician] - Diet: Carb Consistent or DM2 and Heart Healthy Diet Texture: Easy to Chew Addtl Attending Provider Instructions: You have been hospitalized for infection following a root canal. Dr Maria was consulted and you went to the OR for drainage of abscess and placement of drain. You were treated with IV antibiotics and transitioned to AUGMENTIN twice daily to complete a ten day course of antibiotics. You have another six and a half days after your dose the morning of 08/03. You should continue cetirizine 10mg twice daily as instructed by allergy/immunology in the past to prevent any adverse reactions/hives. You have follow up appointment with Dr Maria on 08/05 for drain removal. Please follow up with primary care in the next 7-10 days to monitor your progress after discharge. Please return to the ER with any worsening pain, fever, redness/drainage, inability ot keep up with oral intake or for any other symptoms concerning for you. It has been a pleasure being a part of the medical team providing for you while you have been in the hospital. Take care! Addtl Associate Attorney Provider Instructions: ADDITIONAL ACTIVITY RECOMMENDATIONS: * [place] teeth after every meal. It is very important to keep your mouth clean to prevent infection. * Starting tonight rinse with the Peridex as directed then 2 x a day * it is very important to keep well hydrated, this prevents fever SPECIAL CARE INSTRUCTIONS: *It is not uncommon that between day 2-4 that your swelling will be at its worst this is very normal, do not be alarmed. . * After 36 hours, apply heat (hot water bottle or heating pad) for the next two days, as often as possible. * Tomorrow start rinsing your mouth with 1/2 teaspoon salt in 8 ounces warm water. This rinse should be used every 4-6 hours. * You may experience slight nausea. To prevent this, never take your medication on an empty stomach. If nauseated, take small sips of ga bernadine until you feel better; then you may start on applesauce and toast. * Some swelling is common. It should gradually decrease within 4-5 days. * A certain amount of bleeding is to be expected. It is often possible to control mild oozing by placing folded gauze over the area and biting down for 30 minutes. If you are unable to control excessive bleeding, call Dr Maria at [phone] * You may experience some discomfort for a few days. If pain or swelling increases, Call Dr Maria * Return to the office for a follow up check up on: * office address--[address] phone # [phone] Pending Studies at Discharge: Yes Studies:: Blood cultures -- no growth to date OR culture -- preliminary with no growth Stand-Alone Forms: My [facility] [employer], Smoking Cessation Medications and DC Order Prescriptions: New cetirizine 10 mg Tablet 10 mg PO BID Qty: 13 0RF amoxicillin-pot clavulanate 875-125 mg Tablet 1 tab PO BIDM 6 Days Qty: 13 0RF Continued (DME) OneTouch Verio test strips Strip See Rx Instructions .Route Qty: 150 11RF Rx Instructions: test blood sugar 4 x daily (DME) blood-glucose meter [OneTouch Verio IQ Meter] Kit See Rx Instructions .Route Qty: 1 0RF Rx Instructions: As directed (DME) lancets [OneTouch Delica Lancets] 33 gauge misc See Rx Instructions .Route Qty: 200 11RF Rx Instructions: test blood sugar 4 x daily levalbuterol tartrate [Xopenex HFA] 45 mcg/actuation HFA aerosol inhaler 2 inh INH BID Qty: 15 11RF Rx Instructions: APPROVED GOOD 02/17/22-02/28/23 lorazepam 0.5 mg tablet 0.5 mg PO Q6H PRN (Reason: anxiety) Qty: 30 0RF diclofenac sodium [Voltaren Arthritis Pain] 1 % gel 4 g topical BID PRN (Reason: Pain) Qty: 100 1RF nystatin 100,000 unit/mL suspension 5 ml PO QID PRN (Reason: thrush) Qty: 200 6RF Rx Instructions: swish and swallow celecoxib [Celebrex] 200 mg capsule 200 mg PO BID Qty: 60 5RF sumatriptan succinate [Imitrex] 100 mg tablet 100 mg PO UD PRN (Reason: Migraine Headache) Qty: 10 5RF Rx Instructions: take 1 tab at onset of headache; if no relief may repeat 1 tab in 2hr; max = 2 tabs/24 hrs PO omeprazole 20 mg capsule,delayed release(DR/EC) 20 mg PO BID Qty: 60 5RF Ozempic 2 mg/dose (8 mg/3 mL) pen injector 2 mg subcut Q7D Qty: 9 3RF Patient Comments: takes on saturdays Rx Instructions: Saturdays (DME) Accu-Chek Guide test strips Strip See Rx Instructions .Route Rx Instructions: test 2 times daily ondansetron HCl 8 mg tablet 8 mg PO Q8H PRN (Reason: nausea and vomiting) Qty: 30 1RF Alvesco 160 mcg/actuation HFA aerosol inhaler 1 puff INHALATION BID Qty: 6.1 11RF azelastine 205.5 mcg (0.15 %) spray,non-aerosol 2 spray intranasal QAM Rx Instructions: administer into each nostril metformin 500 mg tablet 1,000 mg PO BID Qty: 360 3RF metoprolol tartrate 50 mg tablet 75 mg PO BID Qty: 270 3RF spironolactone [Aldactone] 100 mg tablet 50 mg PO BID Qty: 90 3RF furosemide 20 mg tablet 20 mg PO QAM Qty: 90 3RF ascorbic acid (vitamin C) 1,000 mg tablet 1 g PO DAILY cyanocobalamin (vitamin B-12) 2,500 mcg Tablet 2,500 mcg PO QAM potassium 99 mg Tablet 99 mg PO BID Patient Comments: OTC aspirin 81 mg Tablet,Delayed Release (Dr/Ec) 81 mg PO BID benzonatate 200 mg capsule 200 mg PO TID PRN (Reason: Cough) Rx Instructions: as needed for cough ibuprofen 200 mg Capsule 400 mg PO Q6H PRN (Reason: Pain) Levemir FlexTouch U100 Insulin 100 unit/mL (3 mL) insulin pen 75 - 100 unit subcut QPM Rx Instructions: If Blood Glucose level is higher than 200 pt will inject additional units but doesn't exceed 100 (DME) Oxygen Home Liters Per Minute See Rx Instructions .Route Qty: 1 0RF Rx Instructions: As directed currently 3.5 L nc continuous guaifenesin [Mucinex] 600 mg tablet extended release 12hr 600 mg PO BID montelukast [Singulair] 10 mg tablet 10 mg PO HS bupropion HCl [Wellbutrin SR] 200 mg tablet sustained-release 12 hr 200 mg PO BID phenazopyridine [Pyridium] 200 mg tablet 200 mg PO Q8H PRN (Reason: pain) Qty: 10 0RF tamsulosin 0.4 mg capsule 0.4 mg PO HS PRN (Reason: Stent replacement surgery) Held Claritin 10 mg Tablet,Chewable 10 mg PO HS Hold Instructions: Resume on 08/09/22. until done with antibiotics/cetirizine Discontinued azithromycin 250 mg tablet See Rx Instructions .ROUTE .COMPLEX Rx Instructions: Z-pack dispensed to pt on 07/29/22, End date 08/02/22 No Action (DME) pen needle, diabetic [BD Ultra-Fine Mini Pen Needle] 31 gauge x 3/16" needle See Dose Instructions .ROUTE .MEDSUPPLY Qty: 100 3RF Dose Instruction: As directed Rx Instructions: As directed one daily Discharge Orders: Discharge Order (Routine); Ordered 08/03/22 Ordered By: Jonathan Hardy/Other Patient Handouts: Dental Abscess Facial Cellulitis Admission Data Admit Date/Time: 07/31/22 19:56 Attending Provider: Jonathan Nguyen Admit Provider: Vinaey Roman Primary Care Provider: Ankita Tony Other Providers: Vianey Roman ; Cale Maria Coding Level of Care Code 25024 INP/OBS DISCH >30 MIN Diagnoses Abscess, dental K04.7 Type 2 diabetes mellitus with insulin therapy E11.9; Z79.4 Hypertension I10 GERD (gastroesophageal reflux disease) K21.9 Kidney stones N20.0 Atrial flutter, paroxysmal I48.92 Asthma J45.909
[2022-08-03] MEDS ORDERED: LANTUS PER UNIT CHARGE SQ SCH (21:00)
--- NOTE | 2022-08-17 10:37 | Operative Report ---
PG Post Operative Report Pre & Post Diagnosis Operation Date: 08/01/22 12:05 Pre-Op Diagnosis: LEFT FACIAL ABSCESS Post-Op Diagnosis: LEFT FACIAL ABSCESS I identified the patient and participated in the time-out.: Yes Procedure Operation Date: 08/01/22 12:05 Actual Procedures p Left Infratemporal Fossa Abscess Incison and Drainage(Left) - Cale Maria DMD Surgeon Cale Maria DMD [employer] Helper none Estimated Blood Loss 5 Findings Consistent with Post-Op Diagnosis IMPRESSION: Infection left infratemporal space 1. 1.9 x 1.3 cm rim-enhancing left facial fluid collection along the lateral aspect of the left maxilla. This favors a small abscess. This is odontogenic although definitive source is not identified on this exam. Associated left facial stranding and thickening of the left aspect of the platysma. Specimens none Drains [place] Anesthesia Type General Complications none Indications IMPRESSION: 1. 1.9 x 1.3 cm rim-enhancing left facial fluid collection along the lateral aspect of the left maxilla. This favors a small abscess. This is odontogenic although definitive source is not identified on this exam. Associated left facial stranding and thickening of the left aspect of the platysma. Description of Procedure Actual Procedures p Incision and Drainage left temporal and infratemporal Abscess; - Cale bangura DMD ICD 10 K12.2 , L03.211, M27.2 CPT 76488 I and D of deep subcutaneous abscess of the temporal space Once cleared for surgery general anesthesia was achieved, the eyes were protected by the anesthesia dept criteria. A time out was take for patient ID, antibiotics, equipment and position verification once all agreed the procedure began. Local anesthesia using Marcaine with a vasoconstrictor ( 1.8 ml per site) given into left posterior maxilla A throat pack was placed after the oral cavity was irrigated with saline. Once a surgical level of anesthesia was obtained and the local anesthesia was given time for the blocks the surgery was started. I turned my attention to the infection which was located in the in the left cheek, left tuberosity area, Infa and temporal fossa area CT scan report--1. 1.9 x 1.3 cm rim-enhancing left facial fluid collection along the lateral aspect of the left maxilla. This favors a small abscess. This is odontogenic although definitive source is not identified on this exam Incision and Drainage Using a 15 blade an incision was made in the posterior aspect of the tuberosity upper left side. Once the incision was made a lot of pus extruded from the site. This drainage was cultured for anaerobic and aerobic bacteria. A curved hemostat was carefully placed superior into the infected space to drain the infratemporal and temporal space. To gain access to the pocket of pus in the cheek another incision was made in the vestibule. This allowed further drainage to escape. I palpated the face and temporal area and no further drainage was expressed. The area was irrigated with at least 100 ml of NS solution. I now placed a long 1/4 inch [place] drain up into the Temporal space and sutured the drain in place with a few 2-0 chromics. Rosalie will be followed in my office in a few days for drain removal. The site was inspected to insure all bleeding was controlled. I removed the throat pack and suctioned the throat. A gauze pressure dressings were placed. All instrument and sponge count was correct. The patient was allowed to awake from the anesthesia. Once full awake the anesthesia tube was removed and the patient was taken to the recovery room with all vital sign stable. The patient tolerated the surgery very well. I will follow the patient in my office, Rx and instructions will be given upon discharge. . I attest to the content of the Intraoperative Record and any orders documented therein. Any exceptions are noted below.
== END 2022-08-03 15:10 | disposition home or self-care (01) | DRG 158 ==
LOC: ED 14:36 → SUATTDRO 19:56 → 3N 19:56